=== PATIENT | female | born 1955 | race Caucasian/White ===

== ENCOUNTER 2020-04-21 10:26 | Outpatient (REF) | payer MEDICARE, MEDICAID, SELFPAY ==
[2020-04-21 11:11] LABS: MANUAL DIFF FLAG NO
[2020-04-21 11:15] LABS: Basophils Absolute Auto 0.1 X10*3/uL (0.0-0.2); Basophils Percent Auto 0.5 % (0-2); Eosinophils Absolute Auto 0.1 X10*3/uL (0.0-0.4); Eosinophils Percent Auto 0.7 % (0-4); Hemoglobin 13.2 g/dl (12.0-16.0); Imm Gran Abs Auto 0.04 X10*3/uL (0.00-0.03); Imm Gran Pct Auto 0.4 % (0.0-0.4); Lymphocytes Absolute Auto 2.9 X10*3/uL (1.2-4.9); Lymphocytes Percent Auto 31.8 % (20-40); Mean Corpuscular Hemoglobin 29.7 pg (27.0-33.0); Mean Corpuscular Volume 90.1 fL (80-98); Mean Platelet Volume 9.5 fL (9.4-12.3); Monocytes Absolute Auto 0.6 X10*3/uL (0.1-1.2); Monocytes Percent Auto 6.9 % (2-11); Neutrophils Absolute Auto 5.5 X10*3/uL (2.0-8.3); Neutrophils Percent Auto 59.7 % (45-73); Platelet Count 248 X10*3/uL (160-400); Red Blood Count 4.44 X10*6/uL (4.20-5.50); Red Cell Distribution Width 15.2 % (11.0-16.0); White Blood Count 9.2 X10*3/uL (4.8-10.8)
[2020-04-21 11:59] LABS: Alanine Aminotransferase 30 U/L (0-31); Albumin Level 4.1 g/dL (3.5-5.0); Alkaline Phosphatase 84 U/L (39-117); Anion Gap 12 (12-20); Aspartate Amino Transferase 25 U/L (5-31); Bilirubin Total 0.9 mg/dL (0.0-1.0); Blood Urea Nitrogen 18 mg/dL (9-16); C Reactive Protein 0.26 mg/dL (< or = 0.50); Carbon Dioxide 27 mmol/L (22-29); Chloride 107 mmol/L (96-108); Estimated Glomerular Filt Rate > 60; Glucose Random 98 mg/dL (60-115); Potassium 4.9 mmol/l (3.3-5.1); Sodium 141 mmol/L (135-145); Total Protein 6.5 g/dL (6.5-8.0)
[2020-04-21 12:01] LABS: Erythrocyte Sedimentation Rate 2 MM/HR (0-20)
== END 2020-04-21 10:27 | disposition home or self-care (01) ==
LOC: HO.LAB 10:26
PROVIDERS: PCP Internal Medicine; Visit Provider Student in an Organized Health Care Education/Training Program
DX: M06.9 Rheumatoid arthritis, unspecified (principal); Z79.899 Other long term (current) drug therapy
CPT/HCPCS: 36415; 80053; 85025; 85652; 86140

== ENCOUNTER 2020-05-24 08:02 | Outpatient (REF) | payer MEDICARE, MEDICAID, SELFPAY ==
[2020-05-24 08:28] LABS: MANUAL DIFF FLAG NO
[2020-05-24 08:38] LABS: Basophils Percent Auto 0.5 % (0-2); Eosinophils Absolute Auto 0.1 X10*3/uL (0.0-0.4); Eosinophils Percent Auto 0.8 % (0-4); Hematocrit 41.5 % (37-47); Hemoglobin 13.7 g/dl (12.0-16.0); Imm Gran Abs Auto 0.01 X10*3/uL (0.00-0.03); Imm Gran Pct Auto 0.1 % (0.0-0.4); Lymphocytes Absolute Auto 3.9 X10*3/uL (1.2-4.9); Mean Corpuscular Hemoglobin 29.8 pg (27.0-33.0); Mean Corpuscular Volume 90.2 fL (80-98); Mean Platelet Volume 10.2 fL (9.4-12.3); Monocytes Absolute Auto 0.7 X10*3/uL (0.1-1.2); Neutrophils Absolute Auto 2.5 X10*3/uL (2.0-8.3); Neutrophils Percent Auto 34.6 % (45-73); Platelet Count 245 X10*3/uL (160-400); Red Cell Distribution Width 14.2 % (11.0-16.0); White Blood Count 7.3 X10*3/uL (4.8-10.8)
[2020-05-24 08:50] LABS: Alanine Aminotransferase 25 U/L (0-31); Albumin Level 4.2 g/dL (3.5-5.0); Alkaline Phosphatase 84 U/L (39-117); Anion Gap 13 (12-20); Aspartate Amino Transferase 23 U/L (5-31); Bilirubin Total 0.9 mg/dL (0.0-1.0); Blood Urea Nitrogen 17 mg/dL (9-16); C Reactive Protein 0.07 mg/dL (< or = 0.50); Calcium 8.6 mg/dL (8.4-10.2); Carbon Dioxide 26 mmol/L (22-29); Chloride 108 mmol/L (96-108); Estimated Glomerular Filt Rate > 60; Glucose Random 88 mg/dL (60-115); Sodium 143 mmol/L (135-145); Total Protein 6.6 g/dL (6.5-8.0)
[2020-05-24 09:38] LABS: Erythrocyte Sedimentation Rate 2 MM/HR (0-20)
== END 2020-05-24 08:03 | disposition home or self-care (01) ==
LOC: HO.LAB 08:02
PROVIDERS: PCP Internal Medicine; Visit Provider Student in an Organized Health Care Education/Training Program
DX: M06.9 Rheumatoid arthritis, unspecified (principal); Z79.899 Other long term (current) drug therapy
CPT/HCPCS: 36415; 80053; 85025; 85652; 86140

== ENCOUNTER 2020-06-16 07:14 | Outpatient (REF) | payer MEDICARE, MEDICAID, SELFPAY ==
[2020-06-16 07:57] LABS: Basophils Absolute Auto 0.1 X10*3/uL (0.0-0.2); Basophils Percent Auto 0.8 % (0-2); Eosinophils Absolute Auto 0.1 X10*3/uL (0.0-0.4); Hematocrit 39.8 % (37-47); Hemoglobin 13.2 g/dl (12.0-16.0); Imm Gran Abs Auto 0.01 X10*3/uL (0.00-0.03); Imm Gran Pct Auto 0.2 % (0.0-0.4); Lymphocytes Absolute Auto 3.3 X10*3/uL (1.2-4.9); Lymphocytes Percent Auto 53.7 % (20-40); Mean Corpuscular HGB Conc 33.2 g/dl (31.0-35.0); Mean Corpuscular Hemoglobin 29.7 pg (27.0-33.0); Mean Corpuscular Volume 89.4 fL (80-98); Mean Platelet Volume 10.1 fL (9.4-12.3); Monocytes Absolute Auto 0.7 X10*3/uL (0.1-1.2); Monocytes Percent Auto 10.7 % (2-11); Neutrophils Absolute Auto 2.1 X10*3/uL (2.0-8.3); Neutrophils Percent Auto 33.6 % (45-73); Platelet Count 254 X10*3/uL (160-400); Red Blood Count 4.45 X10*6/uL (4.20-5.50); Red Cell Distribution Width 13.5 % (11.0-16.0); White Blood Count 6.2 X10*3/uL (4.8-10.8)
[2020-06-16 07:58] LABS: MANUAL DIFF FLAG NO
[2020-06-16 08:01] LABS: Glucose Urine UA NEG (NEG); Leukocyte Esterase Urine 1+ (NEG); Nitrite Urine NEG (NEG); PH 5.5 (5.0-8.0); Urine Blood 3+ (NEG); Urine Ketones 5 MG/DL (NEG); Urine Protein NEG (NEG-TRACE)
[2020-06-16 08:03] LABS: Appearance Urine HAZY; Color Urine YELLOW
[2020-06-16 08:04] LABS: Estimated Average Glucose 97 mg/dL
[2020-06-16 08:18] LABS: Alanine Aminotransferase 32 U/L (0-31); Albumin Level 3.9 g/dL (3.5-5.0); Alkaline Phosphatase 79 U/L (39-117); Anion Gap 13 (12-20); Aspartate Amino Transferase 28 U/L (5-31); Bilirubin Total 0.7 mg/dL (0.0-1.0); Blood Urea Nitrogen 19 mg/dL (9-16); Calcium 8.5 mg/dL (8.4-10.2); Carbon Dioxide 25 mmol/L (22-29); Chloride 108 mmol/L (96-108); Cholesterol 120 mg/dL; Estimated Glomerular Filt Rate > 60; Glucose Fasting 93 mg/dL (60-99); HDL Cholesterol 57 mg/dL; LDL Cholesterol Calculated 47 mg/dl; Sodium 142 mmol/L (135-145); Total Protein 6.4 g/dL (6.5-8.0); Triglycerides 83 mg/dL
[2020-06-16 08:26] LABS: Reflex LDLD? No
[2020-06-16 08:26] LABS: Bacteria Urine TRACE /LPF; Squamous Epithelial Cell Urine 3+ /LPF
[2020-06-16 08:38] LABS: Thyroid Stimulating Hormone 0.41 uIU/mL (0.32-4.0)
[2020-06-16 08:50] LABS: Creatinine Urine 196.11 mg/dL; Microalbum/Creatinine Ratio Ur 13.7 ug/mg cr
== END 2020-06-16 07:15 | disposition home or self-care (01) ==
LOC: HO.LAB 07:14
PROVIDERS: Visit Provider Internal Medicine
DX: I10 Essential (primary) hypertension (principal); R73.09 Other abnormal glucose; M06.9 Rheumatoid arthritis, unspecified; D72.820 Lymphocytosis (symptomatic); E04.9 Nontoxic goiter, unspecified
CPT/HCPCS: 36415; 80053; 80061; 81001; 81003; 82043; 83036; 84443; 85025

== ENCOUNTER 2020-07-09 09:36 | Outpatient (REF) | payer MEDICARE, MEDICAID, SELFPAY ==
[2020-07-09 10:46] LABS: Hematocrit 36.5 % (37-47); Hemoglobin 12.1 g/dl (12.0-16.0); Mean Corpuscular HGB Conc 33.2 g/dl (31.0-35.0); Mean Corpuscular Hemoglobin 30.3 pg (27.0-33.0); Mean Corpuscular Volume 91.3 fL (80-98); Mean Platelet Volume 10.2 fL (9.4-12.3); Platelet Count 341 X10*3/uL (160-400); Red Cell Distribution Width 13.6 % (11.0-16.0); White Blood Count 4.9 X10*3/uL (4.8-10.8)
[2020-07-09 11:15] LABS: Alanine Aminotransferase 17 U/L (0-31); Albumin Level 3.4 g/dL (3.5-5.0); Alkaline Phosphatase 80 U/L (39-117); Anion Gap 14 (12-20); Aspartate Amino Transferase 23 U/L (5-31); Bilirubin Total 0.8 mg/dL (0.0-1.0); Blood Urea Nitrogen 7 mg/dL (9-16); C Reactive Protein 9.88 mg/dL (< or = 0.50); Calcium 8.1 mg/dL (8.4-10.2); Carbon Dioxide 26 mmol/L (22-29); Chloride 109 mmol/L (96-108); Estimated Glomerular Filt Rate > 60; Glucose Random 90 mg/dL (60-115); Sodium 145 mmol/L (135-145); Total Protein 6.1 g/dL (6.5-8.0)
[2020-07-09 11:48] LABS: Erythrocyte Sedimentation Rate 38 MM/HR (0-20)
[2020-07-09 11:53] LABS: Atypical Lymph Absolute Manual 0.2 x10*3/uL; Atypical Lymphs Percent Manual 4 % (0-6); Basophils Percent Manual 1 % (0-1); Lymphocytes Absolute Manual 1.7 X10*3/uL (0.6-4.8); Lymphocytes Percent Manual 35 % (20-40); Monocytes Absolute Manual 0.2 X10*3/uL (0.0-1.2); Monocytes Percent Manual 5 % (2-11); Neutrophils Percent Manual 55 % (45-73)
[2020-07-09 11:54] LABS: Band Neutrophils Percent 0 % (3-5); Neutrophils Absolute Manual 2.7 X10*3/uL (2.2-7.9); Platelet Estimate NORMAL (NORMAL); Platelet Morphology Comment NORMAL; RBC Morphology NORMAL
== END 2020-07-09 09:37 | disposition home or self-care (01) ==
LOC: HO.LAB 09:36
PROVIDERS: PCP Internal Medicine; Visit Provider Student in an Organized Health Care Education/Training Program
DX: M06.9 Rheumatoid arthritis, unspecified (principal); Z79.899 Other long term (current) drug therapy
CPT/HCPCS: 36415; 80053; 85007; 85025; 85027; 85652; 86140

== ENCOUNTER 2020-07-29 11:24 | Outpatient (REF) | payer MEDICARE, MEDICAID, SELFPAY ==
--- NOTE | 2020-07-29 11:38 | XR_ITS ---
EXAMINATION: XR CHEST CLINICAL INFORMATION: Rheumatoid arthritis COMPARISON: Previous chest x-rays most recent October 2018 TECHNIQUE: 2 views of the chest were obtained. FINDINGS: The cardiac and mediastinal contours are stable. There are post-CABG changes. There is a small 5 mm nodule that projects over the left upper lobe and anterior second rib that is unchanged. The lungs are otherwise clear. There is no pleural effusion or pneumothorax. Bony structures are unremarkable. XR/XR chest 2V IMPRESSION: No evidence for acute disease in the chest.
[2020-07-29 12:02] LABS: MANUAL DIFF FLAG NO
[2020-07-29 12:08] LABS: Basophils Absolute Auto 0.1 X10*3/uL (0.0-0.2); Basophils Percent Auto 0.6 % (0-2); Eosinophils Absolute Auto 0.1 X10*3/uL (0.0-0.4); Hematocrit 40.3 % (37-47); Hemoglobin 13.3 g/dl (12.0-16.0); Imm Gran Abs Auto 0.06 X10*3/uL (0.00-0.03); Imm Gran Pct Auto 0.6 % (0.0-0.4); Lymphocytes Absolute Auto 1.9 X10*3/uL (1.2-4.9); Lymphocytes Percent Auto 19.4 % (20-40); Mean Corpuscular Hemoglobin 29.3 pg (27.0-33.0); Mean Corpuscular Volume 88.8 fL (80-98); Mean Platelet Volume 10.3 fL (9.4-12.3); Monocytes Percent Auto 10.2 % (2-11); Neutrophils Absolute Auto 6.6 X10*3/uL (2.0-8.3); Neutrophils Percent Auto 68.2 % (45-73); Platelet Count 230 X10*3/uL (160-400); Red Blood Count 4.54 X10*6/uL (4.20-5.50); Red Cell Distribution Width 14.6 % (11.0-16.0); White Blood Count 9.7 X10*3/uL (4.8-10.8)
[2020-07-29 12:30] LABS: Alanine Aminotransferase 15 U/L (0-31); Albumin Level 3.9 g/dL (3.5-5.0); Alkaline Phosphatase 94 U/L (39-117); Anion Gap 13 (12-20); Aspartate Amino Transferase 16 U/L (5-31); Bilirubin Total 0.8 mg/dL (0.0-1.0); Blood Urea Nitrogen 13 mg/dL (9-16); C Reactive Protein 1.16 mg/dL (< or = 0.50); Calcium 8.8 mg/dL (8.4-10.2); Carbon Dioxide 27 mmol/L (22-29); Chloride 108 mmol/L (96-108); Estimated Glomerular Filt Rate > 60; Glucose Random 102 mg/dL (60-115); Potassium 4.4 mmol/L (3.3-5.1); Sodium 144 mmol/L (135-145); Total Protein 6.6 g/dL (6.5-8.0)
[2020-07-29 13:22] LABS: Erythrocyte Sedimentation Rate 8 MM/HR (0-20)
== END 2020-07-29 11:25 | disposition home or self-care (01) ==
LOC: HO.LAB 11:24
PROVIDERS: PCP Internal Medicine; Visit Provider Student in an Organized Health Care Education/Training Program
DX: M06.9 Rheumatoid arthritis, unspecified (principal); Z79.899 Other long term (current) drug therapy
CPT/HCPCS: 36415; 71046; 80053; 85025; 85652; 86140

== ENCOUNTER → 2020-10-03 09:16 | Outpatient (REF) | payer MEDICARE, MEDICAID, SELFPAY ==
--- NOTE | 2020-10-03 09:30 | CA_ITS ---
Transthoracic Echocardiogram Patient (Last, First, Middle): Selene Barry, Gender: Female Date of : 1955 Age: 65 Procedure Date: 10/03/2020 Procedure Type: Transthoracic Echocardiogram Location: OP Height: 162.56 cm Weight: 86.64 kg BSA: 1.92 m2 Heart Rate: bpm BP: 118 / 60 mmHg Whipped Topping Mixer: Referring MD: Hernan Arriaga MD Symptoms: I34.0 NON RHEUMATIC MITRAL REGURG Study Quality: Good ECG Rhythm: Sinus Conclusions: - The left ventricular systolic function is normal. The visually estimated ejection fraction is between 55-60%. - The basal inferior and basal inferoseptal segments are akinetic. - The posterior mitral leaflet has restricted mobility. There is mild to moderate mitral valve regurgitation. Findings Left Ventricle Normal left ventricular cavity size. There is mildly increased left ventricular wall thickness. The left ventricular systolic function is normal. The visually estimated ejection fraction is between 55-60%. There is evidence of regional wall motion abnormalities. Diastolic function is normal for age. Wall Motion Rest Echo Findings The basal inferior and basal inferoseptal segments are akinetic. Right Ventricle Normal right ventricular cavity size and systolic function. Atria The left atrium is mildly dilated. The right atrium is normal in size. Aortic Valve There is a normal trileaflet aortic valve. There is no aortic valve stenosis. There is trace (trivial) aortic valve regurgitation. Mitral Valve The posterior mitral leaflet has restricted mobility. There is mild to moderate mitral valve regurgitation. There is no mitral valve stenosis. Pulmonic Valve The pulmonic valve was not well visualized. There is trace pulmonic valve regurgitation. Tricuspid Valve Normal tricuspid valve structure. There is trace tricuspid valve regurgitation. The pulmonary artery systolic pressure is normal. Great Vessels The aortic annulus, sinuses of valsalva, and asc aorta are normal in size. Venous The inferior vena cava is normal in size and collapses greater than 50% with inspiration. Pericardium/Pleural There is no evidence of pericardial effusion. Prior Study Comparison No significant change compared to prior study dated: 07/30/2019. Measurements 2D Linear Measurements IVSd: 1.17 0.6-0.9/0.6-1.0 cm LVIDd: 4.81 3.9-5.3/4.2-5.9 cm LVIDd Index: 2.51 2.4-3.2/2.2-3.1 cm/m2 LVIDs: 2.99 2.0-3.6 cm LVPWd: 1.15 0.7-1.1 cm Ao Root: 3.60 2.1-3.5 cm LA Diam: 4.30 2.7-3.8/3.0-4.0 cm LAIDs Index: 2.24 1.5-2.3 cm/m2 LV Mass: 261.23 67-162/88-224 g LV Mass Index: 136.06 43-95/49-115 g/m2 LVOT Diam: 2.00 3.0+(-)1.3 cm 2D Systolic Function EF 4C: 62.10 >55% EF 2C: 52.50 >55% EF BiP: 56.90 >55% Mitral Valve MV Pk E: 0.89 MV PK A: 1.02 MV Decel Time: 219.00 E/A: 0.90 E'Lateral: 10.90 E'Medial: 7.29 E/E' Med: 12.20 E/E' Lat: 8.10 PHT: 64.00 MVA PHT: 3.44 Decel [place]: 4.06 MR Vol - PW Dopp: 33.60 MR VTI: 2.40 MR ERO: 14.00 MR Alias Gabriel: 0.36 MR RAD: 0.60 Aortic Valve AoV Pk Gabriel: 1.32 AoV Mn Gabriel: 0.82 AoV VTI: 0.36 AoV Pk Grad: 7.00 Aov Mn Grad: 3.00 ROSEY Cont.VTI: 2.05 LVOT LVOT Pk Gabriel: 0.80 LVOT Mn Gabriel: 0.51 LVOT VTI: 0.23 LVOT Pk Grad: 3.00 LVOT Mn Grad: 1.00 LVOT Diam: 2.00 LVOT Area: 3.14 Diastolic Function MV Pk E: 0.89 MV Pk A: 1.02 E/A: 0.90 E'Medial: 7.29 E/E' Med: 12.20 E' Laterial: 10.90 E/E' Lat: 8.10 Tricuspid Valve TR Pk Gabriel: 16.00 RA Press: 3.00 RVSP: 19.00 Great Vessels Aorta Ao Root-2D: 3.60 2.0-3.7 cm Ao Asc: 3.40 2.1-3.4 cm Pulmonary Valve PV Pk Gabriel: 0.77 Peak PV Grad: 2.00 Updated in Other Vendor System with Status of Final Hernan Arriaga MD electronically signed on 10/04/2020 12:31:04 PM with status of Final
[2020-10-03 10:32] LABS: Basophils Percent Auto 0.8 % (0-2); Eosinophils Absolute Auto 0.1 X10*3/uL (0.0-0.4); Hematocrit 43.3 % (37-47); Imm Gran Abs Auto 0.01 X10*3/uL (0.00-0.03); Imm Gran Pct Auto 0.2 % (0.0-0.4); Lymphocytes Absolute Auto 2.5 X10*3/uL (1.2-4.9); Lymphocytes Percent Auto 52.3 % (20-40); MANUAL DIFF FLAG NO; Mean Corpuscular HGB Conc 32.3 g/dl (31.0-35.0); Mean Corpuscular Hemoglobin 28.6 pg (27.0-33.0); Mean Corpuscular Volume 88.4 fL (80-98); Mean Platelet Volume 10.3 fL (9.4-12.3); Monocytes Absolute Auto 0.5 X10*3/uL (0.1-1.2); Monocytes Percent Auto 9.7 % (2-11); Neutrophils Absolute Auto 1.8 X10*3/uL (2.0-8.3); Platelet Count 249 X10*3/uL (160-400); Red Cell Distribution Width 13.8 % (11.0-16.0); White Blood Count 4.9 X10*3/uL (4.8-10.8)
[2020-10-03 10:56] LABS: Alanine Aminotransferase 19 U/L (0-31); Albumin Level 4.2 g/dL (3.5-5.0); Alkaline Phosphatase 88 U/L (39-117); Anion Gap 11 (12-20); Aspartate Amino Transferase 20 U/L (5-31); Bilirubin Total 0.9 mg/dL (0.0-1.0); Blood Urea Nitrogen 15 mg/dL (9-16); C Reactive Protein 0.05 mg/dL (< or = 0.50); Calcium 8.8 mg/dL (8.4-10.2); Carbon Dioxide 28 mmol/L (22-29); Chloride 107 mmol/L (96-108); Estimated Glomerular Filt Rate > 60; Glucose Random 89 mg/dL (60-115); Potassium 4.2 mmol/L (3.3-5.1); Sodium 142 mmol/L (135-145); Total Protein 6.8 g/dL (6.5-8.0)
[2020-10-03 11:40] LABS: Erythrocyte Sedimentation Rate 2 MM/HR (0-20)
== END ==
LOC: HO.CARD 09:16
PROVIDERS: Absent Provider Student in an Organized Health Care Education/Training Program; PCP Internal Medicine; Visit Provider Internal Medicine
DX: M06.9 Rheumatoid arthritis, unspecified (principal); Z79.899 Other long term (current) drug therapy; I34.0 Nonrheumatic mitral (valve) insufficiency
CPT/HCPCS: 36415; 80053; 85025; 85652; 86140; 93306

== ENCOUNTER → 2020-10-07 10:27 | Outpatient (BNVA) | payer MEDICARE, MEDICAID, SELFPAY | PROVIDERS: Visit Provider Student in an Organized Health Care Education/Training Program | DX: M05.9 Rheumatoid arthritis with rheumatoid factor, unspecified (principal); M70.62 Trochanteric bursitis, left hip; Z79.899 Other long term (current) drug therapy; I48.20 Chronic atrial fibrillation, unspecified; Z86.718 Personal history of other venous thrombosis and embolism; Z79.01 Long term (current) use of anticoagulants; Z51.81 Encounter for therapeutic drug level monitoring | CPT/HCPCS: 20610; 99212 ==

== ENCOUNTER → 2020-10-20 08:08 | Outpatient (BNVA) | payer MEDICARE, MEDICAID, SELFPAY | PROVIDERS: PCP Internal Medicine; Visit Provider Internal Medicine | DX: I25.10 Atherosclerotic heart disease of native coronary artery without angina pectoris (principal); I34.0 Nonrheumatic mitral (valve) insufficiency; I10 Essential (primary) hypertension; Z95.1 Presence of aortocoronary bypass graft | CPT/HCPCS: 99212 ==

== ENCOUNTER 2020-11-17 09:10 | Outpatient (REF) | payer MEDICARE, MEDICAID, SELFPAY ==
[2020-11-17 10:02] LABS: MANUAL DIFF FLAG NO
[2020-11-17 10:18] LABS: Basophils Absolute Auto 0.1 X10*3/uL (0.0-0.2); Eosinophils Absolute Auto 0.1 X10*3/uL (0.0-0.4); Eosinophils Percent Auto 1.4 % (0-4); Hematocrit 45.4 % (37-47); Hemoglobin 14.7 g/dl (12.0-16.0); Imm Gran Abs Auto 0.02 X10*3/uL (0.00-0.03); Imm Gran Pct Auto 0.3 % (0.0-0.4); Lymphocytes Absolute Auto 2.4 X10*3/uL (1.2-4.9); Lymphocytes Percent Auto 41.8 % (20-40); Mean Corpuscular HGB Conc 32.4 g/dl (31.0-35.0); Mean Corpuscular Hemoglobin 28.5 pg (27.0-33.0); Mean Platelet Volume 10.1 fL (9.4-12.3); Monocytes Absolute Auto 0.6 X10*3/uL (0.1-1.2); Monocytes Percent Auto 9.7 % (2-11); Neutrophils Absolute Auto 2.7 X10*3/uL (2.0-8.3); Neutrophils Percent Auto 45.8 % (45-73); Platelet Count 260 X10*3/uL (160-400); Red Blood Count 5.16 X10*6/uL (4.20-5.50); Red Cell Distribution Width 13.8 % (11.0-16.0); White Blood Count 5.8 X10*3/uL (4.8-10.8)
[2020-11-17 10:40] LABS: Alanine Aminotransferase 20 U/L (0-31); Albumin Level 4.1 g/dL (3.5-5.0); Alkaline Phosphatase 88 U/L (39-117); Anion Gap 12 (12-20); Aspartate Amino Transferase 18 U/L (5-31); Bilirubin Total 0.9 mg/dL (0.0-1.0); Blood Urea Nitrogen 15 mg/dL (9-16); C Reactive Protein 0.17 mg/dL (< or = 0.50); Calcium 9.2 mg/dL (8.4-10.2); Carbon Dioxide 27 mmol/L (22-29); Chloride 105 mmol/L (96-108); Estimated Glomerular Filt Rate > 60; Glucose Random 94 mg/dL (60-115); Potassium 4.1 mmol/L (3.3-5.1); Sodium 140 mmol/L (135-145); Total Protein 6.7 g/dL (6.5-8.0)
== END 2020-11-17 09:11 | disposition home or self-care (01) ==
LOC: HO.LAB 09:10
PROVIDERS: PCP Internal Medicine; Visit Provider Student in an Organized Health Care Education/Training Program
DX: M05.9 Rheumatoid arthritis with rheumatoid factor, unspecified (principal)
CPT/HCPCS: 36415; 80053; 85025; 86140

== ENCOUNTER → 2020-11-19 08:34 | Outpatient (BNVA) | payer MEDICARE, MEDICAID, SELFPAY | PROVIDERS: PCP Internal Medicine; Visit Provider Student in an Organized Health Care Education/Training Program | DX: M05.9 Rheumatoid arthritis with rheumatoid factor, unspecified (principal) | CPT/HCPCS: 99212 ==

== ENCOUNTER 2020-11-28 11:49 | Outpatient (REF) | payer MEDICARE, MEDICAID, SELFPAY ==
--- NOTE | ~2020-11-28 | MM_ITS ---
EXAMINATION: MM SCREENING DIGITAL BREAST TOMOSYNTHESIS, BILATERAL CLINICAL INFORMATION: Screening. Asymptomatic. The lifetime risk of breast cancer based on the Tyrer-Cuzick Model is 7%. COMPARISON: Mammography: 08/08/2019, 08/02/2018, 05/21/2017 TECHNIQUE: Digital breast tomosynthesis is performed in both the craniocaudal and mediolateral oblique views along with computer-aided detection (CAD). Synthesized 2D images are generated from the tomosynthesis. FINDINGS: There are scattered areas of fibroglandular density (ACR BI-RADS breast composition Category b). Breast tissue composition borders on predominantly fatty. Fibroglandular tissue in the anterior breasts is stable. There is no significant mass, architectural abnormality, or abnormal calcifications. No significant changes from prior exams. MM/MM tomosynthesis screening BI IMPRESSION: No mammographic evidence of malignancy. ASSESSMENT: BI-RADS 1: Negative RECOMMENDATION: Routine annual mammography screening. This patient's information was entered into a reminder system with a target due date for their next mammogram.
== END 2020-11-28 11:50 | disposition home or self-care (01) ==
LOC: HO.MAMMO 11:49
PROVIDERS: PCP Internal Medicine; Visit Provider Internal Medicine
DX: Z12.31 Encounter for screening mammogram for malignant neoplasm of breast (principal)
CPT/HCPCS: 77063; 77067

== ENCOUNTER 2021-02-03 10:46 | Outpatient (REF) | payer MEDICARE, MEDICAID, SELFPAY ==
[2021-02-03 11:26] LABS: Estimated Average Glucose 100 mg/dL; Hemoglobin A1c % 5.1 %
[2021-02-03 11:48] LABS: Alanine Aminotransferase 23 U/L (0-31); Albumin Level 4.1 g/dL (3.5-5.0); Alkaline Phosphatase 98 U/L (39-117); Aspartate Amino Transferase 24 U/L (5-31); Bilirubin Direct 0.2 mg/dL (0.0-0.5); Bilirubin Total 0.4 mg/dL (0.0-1.0); Cholesterol 129 mg/dL; Glucose Fasting 97 mg/dL (60-99); HDL Cholesterol 39 mg/dL; LDL Cholesterol Calculated 64 mg/dl; Triglycerides 132 mg/dL
[2021-02-03 12:41] LABS: Reflex LDLD? No
== END 2021-02-03 10:47 | disposition home or self-care (01) ==
LOC: HO.LNP 10:46
PROVIDERS: Visit Provider Internal Medicine
DX: R73.09 Other abnormal glucose (principal); I25.118 Atherosclerotic heart disease of native coronary artery with other forms of angina pectoris
CPT/HCPCS: 80061; 80076; 82947; 83036

== ENCOUNTER 2021-02-04 12:10 | Emergency (ER) | payer MEDICARE, MEDICAID, SELFPAY ==
--- NOTE | ~2021-02-04 | US_ITS ---
EXAMINATION: US VENOUS ULTRASOUND WITH DOPPLER LOWER EXTREMITY, RIGHT CLINICAL INFORMATION: Right lower extremity swelling/pain COMPARISON: None TECHNIQUE: Ultrasound of the deep veins is performed from the hip to the calf with compression sonography and color and pulse Doppler assessment. Spectral analysis with color-flow imaging is performed. FINDINGS: There is normal venous compression and respiratory variation and augmented flow. The visualized common femoral vein, superficial femoral vein, profunda femoral vein, popliteal vein, and the trifurcation region shows no evidence of deep venous thrombosis. There is a 6.4 x 6.2 x 6.6 cm suprapatellar joint effusion. US/US venous duplex LE RT IMPRESSION: No DVT demonstrated in the right lower extremity. Suprapatellar joint effusion of the right knee.
[2021-02-04 12:31] VITALS: BP 141/87; PULSE 50; RESP 18; TEMP 36.1; O2SAT 99; BMI 33.6
[2021-02-04 16:01] LABS: MANUAL DIFF FLAG NO
[2021-02-04 16:05] LABS: Basophils Percent Auto 0.9 % (0-2); Eosinophils Percent Auto 0.9 % (0-4); Hematocrit 44.9 % (37-47); Hemoglobin 15.2 g/dl (12.0-16.0); Lymphocytes Absolute Auto 1.7 X10*3/uL (1.2-4.9); Lymphocytes Percent Auto 48.3 % (20-40); Mean Corpuscular HGB Conc 33.9 g/dl (31.0-35.0); Mean Corpuscular Hemoglobin 29.2 pg (27.0-33.0); Mean Corpuscular Volume 86.2 fL (80-98); Mean Platelet Volume 9.2 fL (9.4-12.3); Monocytes Absolute Auto 0.4 X10*3/uL (0.1-1.2); Monocytes Percent Auto 11.8 % (2-11); Neutrophils Absolute Auto 1.3 X10*3/uL (2.0-8.3); Neutrophils Percent Auto 38.1 % (45-73); Platelet Count 289 X10*3/uL (160-400); Red Blood Count 5.21 X10*6/uL (4.20-5.50); Red Cell Distribution Width 13.1 % (11.0-16.0); White Blood Count 3.5 X10*3/uL (4.8-10.8)
[2021-02-04 16:26] LABS: Anion Gap 14 (12-20); Blood Urea Nitrogen 12 mg/dL (9-16); Calcium 9.2 mg/dL (8.4-10.2); Carbon Dioxide 26 mmol/L (22-29); Chloride 103 mmol/L (96-108); Creatinine Clr Calc Pharmacy 84.3; Estimated Glomerular Filt Rate > 60; Glucose Random 105 mg/dL (60-115); Potassium 4.8 mmol/L (3.3-5.1); Sodium 138 mmol/L (135-145)
[2021-02-04 16:30] LABS: B Type Natriuretic Peptide 174 pg/mL (<100)
--- NOTE | 2021-02-04 16:49 | ED_ITS ---
HPI - Extremity Problem General Chief complaint: Extremity Problem Stated complaint: leg pain Time Seen by Provider: 02/04/21 16:36 Source: patient Mode of arrival: ambulatory History of Present Illness HPI Narrative: 65-year-old female with a past medical history of ACS, CAD, HTN, mitral regurg, RA on 2.5 mg of prednisone daily and Kevzara, presenting to the ED complaining of right lower extremity swelling and pain worsening x1 week. R eports most of pain is in right knee. Reports symptoms are similar to prior RA flares, unchanged. Does report recently traveled from [place]. Denies history of clots, cigarette smoking, or illicit pees, CP/SOB, fever, chills, numbness/tingling MD Complaint: extremity pain and extremity swelling Related Data Home Medications Medication Instructions Recorded Confirmed aspirin 81 mg tablet,delayed 81 mg PO DAILY 05/30/20 10/20/20 release (Adult Low Dose Aspirin) atorvastatin 80 mg tablet 80 mg PO DAILY 05/30/20 10/20/20 calcium carbonate 500 mg (1,250 1 tab PO DAILY 05/30/20 10/20/20 mg)-vitamin D3 200 unit tablet (Calcium 500 + D) fluticasone furoate 200 1 inh INHALATION DAILY 05/30/20 10/20/20 mcg-vilanterol 25 mcg/dose inhalation powder (Breo Ellipta) metoprolol tartrate 50 mg tablet 50 mg PO BID tab 05/30/20 05/30/20 levothyroxine 112 mcg tablet 112 mcg PO DAILY 10/20/20 10/20/20 omeprazole 20 mg capsule,delayed 20 mg PO DAILY 10/20/20 10/20/20 release Previous Rx's Medication Instructions Recorded acetaminophen 650 mg 650 mg PO Q8H PRN #90 tab 05/15/20 tablet,extended release (Arthritis Pain Relief (acetaminophen) ER) diclofenac sodium 1 % topical gel 2 g TOPICAL BID #100 g 09/03/20 sarilumab 200 mg/1.14 mL 200 mg SUBCUT Q2W #2.28 ml 11/19/20 subcutaneous pen injector (Kevzara) prednisone 2.5 mg tablet 2.5 mg PO DAILY #30 tab 12/24/20 prednisone 10 mg tablet 10 mg PO DAILY #20 tab 02/04/21 Allergies Allergy/AdvReac Type Severity Reaction Status Date / Time No Known Allergies Allergy Verified 11/19/20 08:38 [No Known Allergies*] Review of Systems Review of Systems: Constitutional: No Fever, No Chills, No Fatigue, No Malaise Cardiovascular: No Chest Pain, No SOB, +RLE edema Respiratory: No Cough, No Dyspnea Musculoskeletal: + joint pain, No Myalgias, +No Joint Swelling Skin: No Skin Lesions, No rash Neuro: No Weakness, No Numbness, No Paresthesias Yes all other systems are reviewed and are negative [facility] Past Medical History Attestation statement: The following information was validated with the patient. Medical History Atherosclerotic cardiovascular disease Coronary arteriosclerosis Essential hypertension Non-rheumatic mitral regurgitation Seropositive rheumatoid arthritis Surgical History History of thyroid surgery Status post coronary artery bypass graft Family History Family History Mother HTN (hypertension) Social History Social History (Updated 11/19/20 @ 08:41 by Jojo Clark CMA) Alcohol intake: current Patient Tobacco Use Status: Former Tobacco user Tobacco use type: Cigarette Cigarettes Per Day: 3 Years Smoked: 10 Advance Directives: Yes Advance Directives Information Provided: Yes Advance Directives on File: No Physical Exam Vital Signs: Vital Signs: Last Vital Signs Temp 98.8 F 02/04/21 17:46 Pulse 48 L 02/04/21 17:46 Resp 18 02/04/21 17:46 BP 178/65 H 02/04/21 17:46 Pulse Ox 95 02/04/21 17:46 Body Mass Index 33.6 Const: General: cooperative, healthy appearing, no acute distress and well developed Orientation/consciousness: patient oriented x3 Limitations: no limitations HENMT: Head: Yes normal to inspection Ears: hearing grossly normal bilaterally General nose exam: Normal external nose present Face and sinus: Yes normal facial exam Eyes: General: appearance normal, both eyes and all related structures EOM: EOMs intact bilaterally Neck: Neck: Yes normal visual inspection and Yes no meningeal signs Resp: Effort & Inspection: normal respiratory effort and no respiratory distress Cardio: Rate: regular rate Peripheral pulses: dorsalis pedis present : General: Yes no CVA tenderness Back/Spine/Pelvis: Back: no CVA tenderness Skin: Rashes: no rashes Wounds: no wounds Neuro: General: patient oriented x3 and no meningeal signs Gait exam (Neuro): Normal gait present Extrem: Other: +RLE edema/swelling and R knee ttp and pain with R knee ROM. No erythema/warmth. NV intact distally. No calf ttp Course Course Course Narrative: -leukopenia with WBC count 3.5, BNP 174, labs otherwise unremarkable, CRP WNL US venous duplex LE RT IMPRESSION: No DVT demonstrated in the right lower extremity. Suprapatellar joint effusion of the right knee. >> results discussed with patient including worrisome signs and symptoms and strict return precautions. Reports has follow-up with her PCP next week as well as egg tester on the 18th [facility] - Extremity (Nontraumatic) MDM Narrative Medical decision making narrative: 65-year-old female with a past medical history of ACS, CAD, HTN, mitral regurg, RA on 2.5 mg of prednisone daily and Kevzara, presenting to the ED complaining of right lower extremity swelling and pain worsening x1 week. On exam VSS, NAD/well-appearing, RLE with notable swelling/edema and right knee swelling with tenderness to palpation and decreased knee ROM secondary to pain. Concern for RA flare vs DVT. Low concern for PE. Physical exam not consistent with cellulitis. Plan: Venous duplex ultrasound Lab Data Result diagrams: 02/04/21 15:54 02/04/21 15:54 Labs: Lab Results 02/04/21 02/04/21 02/04/21 Range/Units 15:54 15:54 15:54 WBC 3.5 L (4.8-10.8) X10*3/uL RBC 5.21 (4.20-5.50) X10*6/uL Hgb 15.2 (12.0-16.0) g/dl Hct 44.9 (37-47) % MCV 86.2 (80-98) fL MCH 29.2 (27.0-33.0) pg MCHC 33.9 (31.0-35.0) g/dl RDW 13.1 (11.0-16.0) % Plt Count 289 (160-400) X10*3/uL MPV 9.2 L (9.4-12.3) fL Immature Gran % (Auto) 0.0 (0.0-0.4) % Neut % (Auto) 38.1 L (45-73) % Lymph % (Auto) 48.3 H (20-40) % Collier % (Auto) 11.8 H (2-11) % Eos % (Auto) 0.9 (0-4) % Baso % (Auto) 0.9 (0-2) % Lymph # (Auto) 1.7 (1.2-4.9) X10*3/uL Collier # (Auto) 0.4 (0.1-1.2) X10*3/uL Eos # (Auto) 0.0 (0.0-0.4) X10*3/uL Baso # (Auto) 0.0 (0.0-0.2) X10*3/uL Abs Immat Gran (auto) 0.00 (0.00-0.03) X10*3/uL Absolute Neuts (auto) 1.3 L (2.0-8.3) X10*3/uL Absolute Nucleated RBC 0.000 (0.0-0.012) X10*3/uL Nucleated RBC % (auto) 0.0 (0.0-0.2) /100WBC Sodium 138 (135-145) mmol/L Potassium 4.8 (3.3-5.1) mmol/L Chloride 103 (96-108) mmol/L Carbon Dioxide 26 (22-29) mmol/L Anion Gap 14 (12-20) BUN 12 (9-16) mg/dL Creatinine 0.71 (0.5-1.4) mg/dL Estim Creat Clear Calc 84.3 Estimated GFR > 60 Random Glucose 105 (60-115) mg/dL Calcium 9.2 (8.4-10.2) mg/dL C-Reactive Protein 0.47 (< or = 0.50) mg/dL B-Natriuretic Peptide 174 H (<100) pg/mL Discharge Plan Discharge Clinical Impression: Rheumatoid arthritis flare Patient Disposition: Home, Self-Care Instructions: Rheumatoid Arthritis (ED) Additional Instructions: Your blood work was reassuring Your ultrasound did not show any blood clot however did shows some fluid in her knee joint Continue taking home prescribed medications, start taking prednisone taper breath prescribed It is important he follow up with her primary care doctor and her egg tester If her symptoms persist or worsen, your leg begins to look infected, is red, is warm, if shortness of breath or pain is persistent or worsening please return to the ED Prescriptions: New prednisone 10 mg tablet 10 mg PO DAILY Qty: 20 RF: 0 No Action acetaminophen [Arthritis Pain Relief (acetam)] 650 mg tablet extended release 650 mg PO Q8H PRN (Reason: pain) Qty: 90 RF: 5 diclofenac sodium 1 % gel 2 g topical BID Qty: 100 RF: 3 prednisone 2.5 mg tablet 2.5 mg PO DAILY Qty: 30 RF: 3 calcium carbonate-vitamin D3 [Calcium 500 + D] 500 mg(1,250mg) -200 unit tablet 1 tab PO DAILY RF: 0 atorvastatin 80 mg tablet 80 mg PO DAILY RF: 0 aspirin [Adult Low Dose Aspirin] 81 mg tablet,delayed release (DR/EC) 81 mg PO DAILY RF: 0 Breo Ellipta 200-25 mcg/dose blister with device 1 inh inhalation DAILY RF: 0 metoprolol tartrate 50 mg tablet 50 mg PO BID RF: 0 levothyroxine 112 mcg tablet 112 mcg PO DAILY RF: 0 omeprazole 20 mg capsule,delayed release(DR/EC) 20 mg PO DAILY RF: 0 Kevzara 200 mg/1.14 mL pen injector 200 mg subcut Q2W Qty: 2.28 RF: 3 Referrals: Bola Pathak MD [Physician] - 5 days
[2021-02-04 17:39] LABS: C Reactive Protein 0.47 mg/dL (< or = 0.50)
[2021-02-04 17:46] VITALS: BP 178/65; PULSE 48; RESP 18; TEMP 37.1; O2SAT 95
[2021-02-04 18:21] LABS: Erythrocyte Sedimentation Rate 3 MM/HR (0-20)
== END 2021-02-04 18:30 | disposition home or self-care (01) ==
PROVIDERS: Physician Assistant; Emergency Provider Emergency Medicine Emergency Medical Services; PCP Internal Medicine
DX: M05.9 Rheumatoid arthritis with rheumatoid factor, unspecified (principal); M79.604 Pain in right leg; I10 Essential (primary) hypertension; Z79.52 Long term (current) use of systemic steroids; Z79.899 Other long term (current) drug therapy
CPT/HCPCS: 36415; 80048; 83880; 85025; 85652; 86140; 93971; 99284

== ENCOUNTER 2021-02-06 10:04 | Outpatient (REF) | payer MEDICARE, MEDICAID, SELFPAY ==
[2021-02-06 10:53] LABS: MANUAL DIFF FLAG NO
[2021-02-06 10:56] LABS: Basophils Percent Auto 0.2 % (0-2); Hematocrit 44.2 % (37-47); Hemoglobin 14.7 g/dl (12.0-16.0); Imm Gran Abs Auto 0.02 X10*3/uL (0.00-0.03); Imm Gran Pct Auto 0.4 % (0.0-0.4); Lymphocytes Absolute Auto 1.6 X10*3/uL (1.2-4.9); Lymphocytes Percent Auto 31.3 % (20-40); Mean Corpuscular HGB Conc 33.3 g/dl (31.0-35.0); Mean Corpuscular Hemoglobin 28.7 pg (27.0-33.0); Mean Corpuscular Volume 86.3 fL (80-98); Mean Platelet Volume 9.9 fL (9.4-12.3); Monocytes Absolute Auto 0.4 X10*3/uL (0.1-1.2); Monocytes Percent Auto 7.7 % (2-11); Neutrophils Absolute Auto 3.1 X10*3/uL (2.0-8.3); Neutrophils Percent Auto 60.4 % (45-73); Platelet Count 308 X10*3/uL (160-400); Red Blood Count 5.12 X10*6/uL (4.20-5.50); Red Cell Distribution Width 13.1 % (11.0-16.0); White Blood Count 5.2 X10*3/uL (4.8-10.8)
[2021-02-06 11:26] LABS: Alanine Aminotransferase 22 U/L (0-31); Albumin Level 4.3 g/dL (3.5-5.0); Alkaline Phosphatase 100 U/L (39-117); Anion Gap 17 (12-20); Aspartate Amino Transferase 18 U/L (5-31); Bilirubin Total 0.5 mg/dL (0.0-1.0); Blood Urea Nitrogen 15 mg/dL (9-16); C Reactive Protein 0.29 mg/dL (< or = 0.50); Calcium 9.6 mg/dL (8.4-10.2); Carbon Dioxide 24 mmol/L (22-29); Chloride 104 mmol/L (96-108); Estimated Glomerular Filt Rate > 60; Glucose Random 164 mg/dL (60-115); Potassium 4.9 mmol/L (3.3-5.1); Sodium 140 mmol/L (135-145); Total Protein 7.2 g/dL (6.5-8.0)
[2021-02-06 11:37] LABS: Erythrocyte Sedimentation Rate 2 MM/HR (0-20)
== END 2021-02-06 10:05 | disposition home or self-care (01) ==
LOC: HO.LAB 10:04
PROVIDERS: PCP Internal Medicine; Visit Provider Student in an Organized Health Care Education/Training Program
DX: M05.9 Rheumatoid arthritis with rheumatoid factor, unspecified (principal)
CPT/HCPCS: 36415; 80053; 85025; 85652; 86140

== ENCOUNTER → 2021-02-11 08:45 | Outpatient (BNVA) | payer MEDICARE, MEDICAID, SELFPAY | PROVIDERS: PCP Internal Medicine; Visit Provider Nurse Practitioner Family | DX: M05.9 Rheumatoid arthritis with rheumatoid factor, unspecified (principal) | CPT/HCPCS: 20610; 99212 ==

== ENCOUNTER 2021-02-11 10:43 | Outpatient (REF) | payer MEDICARE, MEDICAID, SELFPAY | END 2021-02-11 10:44 | disposition home or self-care (01) | LOC: HO.LNP 10:43 | PROVIDERS: Visit Provider Student in an Organized Health Care Education/Training Program | DX: M05.9 Rheumatoid arthritis with rheumatoid factor, unspecified (principal); M25.561 Pain in right knee; Z79.52 Long term (current) use of systemic steroids; Z79.899 Other long term (current) drug therapy | CPT/HCPCS: 20610; 87071; 87073; 87205; 89060; 99212 ==

== ENCOUNTER 2021-02-24 07:55 | Outpatient (REF) | payer MEDICARE, MEDICAID, SELFPAY ==
--- NOTE | ~2021-02-24 | XR_ITS ---
EXAMINATION: XR BOTH KNEES AP STANDING XR RIGHT KNEE, 2 VIEWS CLINICAL INFORMATION: Right knee pain. COMPARISON: Radiographs dated 11/14/2018. Left knee radiographs dated 01/08/2016. TECHNIQUE: Standing AP view of both knees and lateral and sunrise views of the right knee. FINDINGS: Right Knee: Prominent tricompartmental joint space narrowing. Lateral compartment subchondral sclerosis and subchondral cystic change. Tricompartmental marginal osteophytes. No acute fracture or dislocation. Lateral subluxation of the patella, unchanged. [id number] joint effusion. Left Knee: Tiny medial compartment marginal osteophytes. No osseous erosion. No fracture or dislocation. XR/XR knee standing BI IMPRESSION: RIGHT KNEE: Prominent tricompartmental osteoarthritis, most severe within the lateral compartment. Findings are slightly progressed when compared to the prior radiographs. LEFT KNEE: Mild medial compartment osteoarthritis, unchanged.
--- NOTE | ~2021-02-24 | XR_ITS ---
EXAMINATION: XR BOTH KNEES AP STANDING XR RIGHT KNEE, 2 VIEWS CLINICAL INFORMATION: Right knee pain. COMPARISON: Radiographs dated 11/14/2018. Left knee radiographs dated 01/08/2016. TECHNIQUE: Standing AP view of both knees and lateral and sunrise views of the right knee. FINDINGS: Right Knee: Prominent tricompartmental joint space narrowing. Lateral compartment subchondral sclerosis and subchondral cystic change. Tricompartmental marginal osteophytes. No acute fracture or dislocation. Lateral subluxation of the patella, unchanged. Dahrm-et-nihanoid joint effusion. Left Knee: Tiny medial compartment marginal osteophytes. No osseous erosion. No fracture or dislocation. XR/XR knee RT 2V IMPRESSION: RIGHT KNEE: Prominent tricompartmental osteoarthritis, most severe within the lateral compartment. Findings are slightly progressed when compared to the prior radiographs. LEFT KNEE: Mild medial compartment osteoarthritis, unchanged.
== END 2021-02-24 07:56 | disposition home or self-care (01) ==
LOC: HO.HOSX 07:55
PROVIDERS: Visit Provider Physician Assistant
DX: M06.9 Rheumatoid arthritis, unspecified (principal); M25.461 Effusion, right knee; M25.561 Pain in right knee
CPT/HCPCS: 20610; 73560; 73565; 99202; J1040

== ENCOUNTER → 2021-05-07 12:12 | Outpatient (BNVA) | payer MEDICARE, MEDICAID, SELFPAY | PROVIDERS: Referring Provider Internal Medicine; Visit Provider Internal Medicine | DX: I25.10 Atherosclerotic heart disease of native coronary artery without angina pectoris (principal); I34.0 Nonrheumatic mitral (valve) insufficiency; I10 Essential (primary) hypertension; R60.0 Localized edema; Z95.1 Presence of aortocoronary bypass graft | CPT/HCPCS: 93005; 99212 ==

== ENCOUNTER 2021-05-14 09:22 | Outpatient (REF) | payer MEDICARE, MEDICAID, SELFPAY ==
[2021-05-14 10:12] LABS: Basophils Absolute Auto 0.1 X10*3/uL (0.0-0.2); Basophils Percent Auto 1.1 % (0-2); Eosinophils Absolute Auto 0.1 X10*3/uL (0.0-0.4); Eosinophils Percent Auto 1.8 % (0-4); Hematocrit 45.5 % (37.0-47.0); Hemoglobin 15.3 g/dl (12.0-16.0); Imm Gran Abs Auto 0.01 X10*3/uL (0.00-0.03); Imm Gran Pct Auto 0.2 % (0.0-0.4); MANUAL DIFF FLAG SCAN; Mean Corpuscular HGB Conc 33.6 g/dl (31.0-35.0); Mean Corpuscular Hemoglobin 29.7 pg (27.0-33.0); Mean Corpuscular Volume 88.2 fL (80.0-98.0); Mean Platelet Volume 10.3 fL (9.4-12.3); Monocytes Absolute Auto 0.5 X10*3/uL (0.1-1.2); Monocytes Percent Auto 12.1 % (2-11); Neutrophils Absolute Auto 0.8 x10*3/uL (2.0-8.3); Neutrophils Percent Auto 17.8 % (45-73); Platelet Count 211 X10*3/uL (160-400); Red Blood Count 5.16 X10*6/uL (4.20-5.50); Red Cell Distribution Width 13.4 % (11.0-16.0); SCAN SMEAR FLAG 1; White Blood Count 4.5 X10*3/uL (4.8-10.8)
[2021-05-14 10:58] LABS: Alanine Aminotransferase 25 U/L (0-31); Albumin Level 4.2 g/dL (3.5-5.0); Alkaline Phosphatase 94 U/L (39-117); Anion Gap 13 (12-20); Aspartate Amino Transferase 24 U/L (5-31); Bilirubin Total 1.1 mg/dL (0.0-1.0); Blood Urea Nitrogen 13 mg/dL (9-16); C Reactive Protein 0.05 mg/dL (< or = 0.50); Calcium 9.4 mg/dL (8.4-10.2); Carbon Dioxide 28 mmol/L (22-29); Chloride 106 mmol/L (96-108); Estimated Glomerular Filt Rate > 60; Glucose Random 108 mg/dL (60-115); Potassium 4.2 mmol/L (3.3-5.1); Sodium 143 mmol/L (135-145); Total Protein 6.6 g/dL (6.5-8.0)
[2021-05-14 11:22] LABS: SLIDE REVIEW VERIFIED
[2021-05-14 11:30] LABS: Erythrocyte Sedimentation Rate 1 MM/HR (0-20)
== END 2021-05-14 09:23 | disposition home or self-care (01) ==
LOC: HO.LAB 09:22
PROVIDERS: PCP Internal Medicine; Visit Provider Nurse Practitioner Family
DX: M05.9 Rheumatoid arthritis with rheumatoid factor, unspecified (principal)
CPT/HCPCS: 36415; 80053; 85025; 85652; 86140

== ENCOUNTER 2021-05-15 08:29 | Outpatient (REF) | payer MEDICARE, MEDICAID, SELFPAY ==
--- NOTE | ~2021-05-15 | XR_ITS ---
EXAMINATION: XR HIP, RIGHT XR HIP, LEFT CLINICAL INFORMATION: Hip pain. Mild osteoarthritis. Follow-up. COMPARISON: Bilateral hip radiographs 11/14/2018. TECHNIQUE: Each hip is imaged in AP and lateral views. There are total of 4 views, 2 on each side. FINDINGS: Right: No fracture or dislocation or destructive process. There is borderline narrowing superior medial hip joint similar to prior study. No erosive change or chondrocalcinosis. Minimal spurring along the femoral head neck junction present lateral side again seen. Soft tissue planes are unremarkable. Left: No fracture or dislocation or destructive process. There are interval degenerative changes with mild increased narrowing superolateral hip joint and greater spurring at the acetabular rim and base of the femoral head. There is interval buttressing along the femoral neck since prior study. No visible erosive change or chondrocalcinosis. Soft tissue planes are unremarkable. XR/XR hip RT min 2V IMPRESSION: Right: Mild degenerative change similar to 2019. Left: Degenerative changes increased since prior exam 11/14/2018.
--- NOTE | ~2021-05-15 | XR_ITS ---
EXAMINATION: XR HIP, RIGHT XR HIP, LEFT CLINICAL INFORMATION: Hip pain. Mild osteoarthritis. Follow-up. COMPARISON: Bilateral hip radiographs 11/14/2018. TECHNIQUE: Each hip is imaged in AP and lateral views. There are total of 4 views, 2 on each side. FINDINGS: Right: No fracture or dislocation or destructive process. There is borderline narrowing superior medial hip joint similar to prior study. No erosive change or chondrocalcinosis. Minimal spurring along the femoral head neck junction present lateral side again seen. Soft tissue planes are unremarkable. Left: No fracture or dislocation or destructive process. There are interval degenerative changes with mild increased narrowing superolateral hip joint and greater spurring at the acetabular rim and base of the femoral head. There is interval buttressing along the femoral neck since prior study. No visible erosive change or chondrocalcinosis. Soft tissue planes are unremarkable. XR/XR hip LT min 2V IMPRESSION: Right: Mild degenerative change similar to 2019. Left: Degenerative changes increased since prior exam 11/14/2018.
== END 2021-05-15 08:30 | disposition home or self-care (01) ==
LOC: HO.XRAY 08:29
PROVIDERS: PCP Internal Medicine; Visit Provider Nurse Practitioner Family
DX: M05.9 Rheumatoid arthritis with rheumatoid factor, unspecified (principal); M25.551 Pain in right hip; M25.552 Pain in left hip
CPT/HCPCS: 73502; 99212

== ENCOUNTER 2021-06-12 13:51 | Outpatient (REF) | payer MEDICARE, MEDICAID, SELFPAY ==
[2021-06-12 14:01] LABS: Basophils Absolute Auto 0.1 X10*3/uL (0.0-0.2); Basophils Percent Auto 1.3 % (0-2); Eosinophils Absolute Auto 0.1 X10*3/uL (0.0-0.4); Eosinophils Percent Auto 2.1 % (0-4); Hematocrit 46.1 % (37.0-47.0); Hemoglobin 15.4 g/dl (12.0-16.0); Imm Gran Abs Auto 0.01 X10*3/uL (0.00-0.03); Imm Gran Pct Auto 0.3 % (0.0-0.4); Lymphocytes Absolute Auto 2.7 X10*3/uL (1.2-4.9); MANUAL DIFF FLAG SCAN; Mean Corpuscular HGB Conc 33.4 g/dl (31.0-35.0); Mean Corpuscular Hemoglobin 29.7 pg (27.0-33.0); Mean Corpuscular Volume 88.8 fL (80.0-98.0); Mean Platelet Volume 11.1 fL (9.4-12.3); Monocytes Absolute Auto 0.5 X10*3/uL (0.1-1.2); Monocytes Percent Auto 12.8 % (2-11); Neutrophils Absolute Auto 0.5 x10*3/uL (2.0-8.3); Neutrophils Percent Auto 13.5 % (45-73); Platelet Count 193 X10*3/uL (160-400); Red Blood Count 5.19 X10*6/uL (4.20-5.50); Red Cell Distribution Width 12.3 % (11.0-16.0); SCAN SMEAR FLAG 1; White Blood Count 3.9 X10*3/uL (4.8-10.8)
[2021-06-12 14:31] LABS: SLIDE REVIEW VERIFIED
[2021-06-16 13:17] LABS: NT-proBNP 74 pg/mL
== END 2021-06-12 13:52 | disposition home or self-care (01) ==
LOC: HO.LNP 13:51
PROVIDERS: PCP Internal Medicine; Visit Provider Internal Medicine
DX: I50.22 Chronic systolic (congestive) heart failure (principal); D72.820 Lymphocytosis (symptomatic)
CPT/HCPCS: 83880; 85025

== ENCOUNTER 2021-06-15 12:19 | Outpatient (REF) | payer MEDICARE, MEDICAID, SELFPAY ==
--- NOTE | ~2021-06-15 | XR_ITS ---
EXAMINATION: XR PELVIS CLINICAL INFORMATION: Hip pain. COMPARISON: 05/15/2021 TECHNIQUE: AP view of the pelvis. FINDINGS: Moderate osteoarthritis in the left hip is characterized by non-uniform joint space narrowing with subchondral sclerosis and marginal osteophytes. There is buttressing of the medial femoral neck. Mild osteoarthritis is evident in the right hip and bilateral SI joints. Enthesopathic spurring is present at the anterior superior iliac spines and greater trochanters. There is marked degenerative spondylosis in the lower lumbar spine with left convex lumbar scoliosis. No acute fractures. Surgical clip is present in the right inguinal region. XR/XR pelvis 1-2V IMPRESSION: 1. Moderate osteoarthritis in the left hip and more mild osteoarthritis in the right hip and SI joints. 2. Marked degenerative spondylosis in the lower lumbar spine.
== END 2021-06-15 12:20 | disposition home or self-care (01) ==
LOC: HO.HOSX 12:19
PROVIDERS: Visit Provider Orthopaedic Surgery
DX: M25.552 Pain in left hip (principal); M25.551 Pain in right hip; M05.9 Rheumatoid arthritis with rheumatoid factor, unspecified; I25.10 Atherosclerotic heart disease of native coronary artery without angina pectoris; I10 Essential (primary) hypertension; I35.0 Nonrheumatic aortic (valve) stenosis; Z87.891 Personal history of nicotine dependence; Z95.1 Presence of aortocoronary bypass graft; Z98.890 Other specified postprocedural states
CPT/HCPCS: 20610; 72170; 99202; J1100

== ENCOUNTER 2021-06-30 11:01 | Outpatient (REF) | payer MEDICARE, MEDICAID, SELFPAY ==
[2021-06-30 11:13] LABS: Appearance Urine CLOUDY; Color Urine YELLOW; Glucose Urine UA NEG (NEG); Leukocyte Esterase Urine 2+ (NEG); Nitrite Urine NEG (NEG); Specific Gravity - Urine 1.025 (1.005-1.025); Urine Blood TRACE (NEG); Urine Ketones NEG (NEG); Urine Protein NEG (NEG-TRACE)
[2021-06-30 11:26] LABS: Bacteria Urine 2+ /LPF; Basophils Absolute Auto 0.1 X10*3/uL (0.0-0.2); Basophils Percent Auto 1.5 % (0-2); Eosinophils Absolute Auto 0.1 X10*3/uL (0.0-0.4); Eosinophils Percent Auto 1.5 % (0-4); Hematocrit 43.3 % (37.0-47.0); Hemoglobin 14.5 g/dl (12.0-16.0); Imm Gran Abs Auto 0.01 X10*3/uL (0.00-0.03); Imm Gran Pct Auto 0.3 % (0.0-0.4); Lymphocytes Absolute Auto 2.8 X10*3/uL (1.2-4.9); Lymphocytes Percent Auto 70.1 % (20-40); MANUAL DIFF FLAG SCAN; Mean Corpuscular HGB Conc 33.5 g/dl (31.0-35.0); Mean Corpuscular Hemoglobin 29.7 pg (27.0-33.0); Mean Corpuscular Volume 88.7 fL (80.0-98.0); Mean Platelet Volume 11.5 fL (9.4-12.3); Monocytes Absolute Auto 0.5 X10*3/uL (0.1-1.2); Monocytes Percent Auto 11.7 % (2-11); Neutrophils Absolute Auto 0.6 x10*3/uL (2.0-8.3); Neutrophils Percent Auto 14.9 % (45-73); Platelet Count 186 X10*3/uL (160-400); Red Blood Count 4.88 X10*6/uL (4.20-5.50); SCAN SMEAR FLAG 1; Squamous Epithelial Cell Urine 2+ /LPF; White Blood Count 3.9 X10*3/uL (4.8-10.8)
[2021-06-30 11:27] LABS: Calcium Oxalate Crystals Urine 2+ /LPF
[2021-06-30 11:39] LABS: Estimated Average Glucose 103 mg/dL; Hemoglobin A1c % 5.2 %
[2021-06-30 11:54] LABS: SLIDE REVIEW VERIFIED
[2021-06-30 12:06] LABS: Alanine Aminotransferase 23 U/L (0-31); Albumin Level 3.9 g/dL (3.5-5.0); Alkaline Phosphatase 91 U/L (39-117); Anion Gap 12 (12-20); Aspartate Amino Transferase 19 U/L (5-31); Bilirubin Total 1.1 mg/dL (0.0-1.0); Blood Urea Nitrogen 19 mg/dL (9-16); Carbon Dioxide 26 mmol/L (22-29); Chloride 110 mmol/L (96-108); Cholesterol 131 mg/dL; Estimated Glomerular Filt Rate > 60; Glucose Fasting 94 mg/dL (60-99); HDL Cholesterol 49 mg/dL; LDL Cholesterol Calculated 62 mg/dl; Potassium 4.3 mmol/L (3.3-5.1); Sodium 144 mmol/L (135-145); Total Protein 6.3 g/dL (6.5-8.0); Triglycerides 102 mg/dL
[2021-06-30 12:20] LABS: Creatinine Urine 183.28 mg/dL
[2021-06-30 12:30] LABS: TSH reflex Free T4 3.59 uIU/mL (0.32-4.0)
== END 2021-06-30 11:02 | disposition home or self-care (01) ==
LOC: HO.LNP 11:01
PROVIDERS: Visit Provider Internal Medicine
DX: D72.820 Lymphocytosis (symptomatic) (principal); R73.09 Other abnormal glucose; E05.90 Thyrotoxicosis, unspecified without thyrotoxic crisis or storm; I10 Essential (primary) hypertension
CPT/HCPCS: 80053; 80061; 81001; 82043; 83036; 84443; 85025

== ENCOUNTER 2021-10-05 14:35 | Outpatient (REF) | payer MEDICARE, MEDICAID, SELFPAY ==
[2021-10-05 15:27] LABS: Basophils Absolute Auto 0.1 X10*3/uL (0.0-0.2); Basophils Percent Auto 1.6 % (0-2); Eosinophils Absolute Auto 0.1 X10*3/uL (0.0-0.4); Eosinophils Percent Auto 2.2 % (0-4); Hematocrit 42.5 % (37.0-47.0); Hemoglobin 14.1 g/dl (12.0-16.0); Imm Gran Abs Auto 0.01 X10*3/uL (0.00-0.03); Imm Gran Pct Auto 0.3 % (0.0-0.4); Lymphocytes Absolute Auto 2.1 X10*3/uL (1.2-4.9); Lymphocytes Percent Auto 57.8 % (20-40); MANUAL DIFF FLAG SCAN; Mean Corpuscular HGB Conc 33.2 g/dl (31.0-35.0); Mean Corpuscular Hemoglobin 28.4 pg (27.0-33.0); Mean Corpuscular Volume 85.7 fL (80.0-98.0); Mean Platelet Volume 10.5 fL (9.4-12.3); Monocytes Absolute Auto 0.5 X10*3/uL (0.1-1.2); Neutrophils Absolute Auto 0.9 x10*3/uL (2.0-8.3); Neutrophils Percent Auto 25.1 % (45-73); Platelet Count 241 X10*3/uL (160-400); Red Blood Count 4.96 X10*6/uL (4.20-5.50); Red Cell Distribution Width 12.9 % (11.0-16.0); SCAN SMEAR FLAG 1; White Blood Count 3.7 X10*3/uL (4.8-10.8)
[2021-10-05 15:48] LABS: SLIDE REVIEW VERIFIED
[2021-10-05 15:57] LABS: Alanine Aminotransferase 12 U/L (0-31); Alkaline Phosphatase 121 U/L (39-117); Anion Gap 14 (12-20); Aspartate Amino Transferase 15 U/L (5-31); Bilirubin Total 0.4 mg/dL (0.0-1.0); Blood Urea Nitrogen 17 mg/dL (9-16); C Reactive Protein 0.35 mg/dL (< or = 0.50); Calcium 9.3 mg/dL (8.4-10.2); Carbon Dioxide 22 mmol/L (22-29); Chloride 112 mmol/L (96-108); Estimated Glomerular Filt Rate > 60; Glucose Random 109 mg/dL (60-115); Potassium 4.3 mmol/L (3.3-5.1); Sodium 144 mmol/L (135-145); Total Protein 6.9 g/dL (6.5-8.0)
[2021-10-05 16:04] LABS: Erythrocyte Sedimentation Rate 3 MM/HR (0-20)
== END 2021-10-05 14:36 | disposition home or self-care (01) ==
LOC: HO.LAB 14:35
PROVIDERS: PCP Internal Medicine; Visit Provider Nurse Practitioner Family
DX: M06.9 Rheumatoid arthritis, unspecified (principal)
CPT/HCPCS: 36415; 80053; 85025; 85652; 86140

== ENCOUNTER → 2021-10-08 12:44 | Outpatient (BNVA) | payer MEDICARE, MEDICAID, SELFPAY | PROVIDERS: PCP Internal Medicine; Visit Provider Nurse Practitioner Family | DX: M05.9 Rheumatoid arthritis with rheumatoid factor, unspecified (principal); M16.0 Bilateral primary osteoarthritis of hip; M25.551 Pain in right hip; M25.552 Pain in left hip; Z79.899 Other long term (current) drug therapy | CPT/HCPCS: 99212 ==

== ENCOUNTER 2021-10-09 10:46 | Outpatient (REF) | payer MEDICARE, MEDICAID, SELFPAY ==
--- NOTE | ~2021-10-09 | MM_ITS ---
EXAMINATION: BONE DENSITOMETRY CLINICAL INDICATION: Osteoporosis. COMPARISON: Previous BD dated 02/08/2019 and baseline BD dated 10/05/2016. TECHNIQUE: Using a [facility] DXA System (software version: 13.1) manufactured by [employer], dual-energy x-ray absorptiometry was performed of the lumbar spine and left hip. The images are of good technical quality. Summary results are attached. FINDINGS: AP SPINE L1-L2 (excluding L3 and L4): The data of L1-L4 has been changed to exclude the L3 and L4 vertebral bodies, because degenerative changes at these levels may cause overestimation of lumbar spine density. Current: BMD 0.987 g/cm2, Z-score -0.5, T-score -1.5, osteopenia, 0.7% decrease from previous, 6.5% increase from baseline (<5% change is not significant). Prior: BMD 0.994 g/cm2. Baseline: BMD 0.927 g/cm2. LEFT FEMUR, NECK: Current: BMD 0.923 g/cm2, Z-score 0.3, T-score -0.8, normal. Prior: BMD 0.821 g/cm2. Baseline: BMD 0.751 g/cm2. LEFT FEMUR, TOTAL: Current: BMD 0.734 g/cm2, Z-score -1.4, T-score -2.2, osteopenia, 1.9% decrease from previous, 6.2% increase from baseline (<5% change is not significant). Prior: BMD 0.748 g/cm2. Baseline: BMD 0.691 g/cm2. IDENTIFIED RISK FACTORS: Menopause, low calcium intake, osteoporosis, rheumatoid arthritis, secondary osteoporosis. HISTORY OF FRACTURE: None listed. MEDICATIONS: Calcium or multivitamin. Vitamin D, ERT/SERMS. MM/XR DEXA axial skeleton IMPRESSION: 1. DIAGNOSIS: Osteopenia based on the lowest T-score value of -2.2 in the total femur applying World Health Organization criteria. 2. 10-YEAR FRACTURE RISK PREDICTION, FRAX: Major osteoporotic fracture (clinical spine, forearm, hip or shoulder) 5.2%. Hip fracture 0.3%. 3. Treatment Recommendations: NOF guidelines recommend consideration for treatment in postmenopausal women and men age 50 and older presenting with the following: -A hip or vertebral (clinical or morphometric) fracture. -T-score less than or equal to -2.5 at the femoral neck or spine after appropriate evaluation to exclude secondary causes. -Low bone mass at the hip or spine and a 10-year fracture probability by FRAX of greater than or equal to 3% for hip fracture or greater than or equal to 20% for major osteoporotic fracture based on the [place] adapted WHO algorithm. 4. Other Recommendations: All treatment decisions require clinical judgment and consideration of individual patient factors, including patient preferences, comorbidities, previous drug use, risk factors not captured in the FRAX model (e.g. frailty, falls, vitamin D deficiency, increased bone turnover, interval significant decline in bone density) and possible under or overestimation of fracture risk by FRAX. Additional medical evaluation for secondary cause of low bone mineral density may be appropriate. FUTURE SCAN RECOMMENDATION: People with diagnosed cases of osteoporosis or at high risk for fracture should have regular bone mineral density tests. For patients eligible for Medicare, routine testing is allowed once every 2 years. The testing frequency can be increased to one year for patients who have rapidly progressing disease, those who are receiving or discontinuing medical therapy to restore bone mass, or have additional risk factors.
[2021-10-09 11:56] LABS: MANUAL DIFF FLAG NO
[2021-10-09 12:17] LABS: Basophils Absolute Auto 0.1 X10*3/uL (0.0-0.2); Eosinophils Percent Auto 0.8 % (0-4); Hematocrit 41.9 % (37.0-47.0); Imm Gran Abs Auto 0.01 X10*3/uL (0.00-0.03); Imm Gran Pct Auto 0.2 % (0.0-0.4); Lymphocytes Absolute Auto 2.9 X10*3/uL (1.2-4.9); Lymphocytes Percent Auto 59.3 % (20-40); Mean Corpuscular HGB Conc 33.4 g/dl (31.0-35.0); Mean Corpuscular Hemoglobin 28.7 pg (27.0-33.0); Mean Platelet Volume 10.3 fL (9.4-12.3); Monocytes Absolute Auto 0.8 X10*3/uL (0.1-1.2); Monocytes Percent Auto 15.5 % (2-11); Neutrophils Absolute Auto 1.1 x10*3/uL (2.0-8.3); Neutrophils Percent Auto 23.2 % (45-73); Platelet Count 237 X10*3/uL (160-400); Red Blood Count 4.87 X10*6/uL (4.20-5.50); White Blood Count 4.9 X10*3/uL (4.8-10.8)
[2021-10-09 12:46] LABS: Alanine Aminotransferase 12 U/L (0-31); Albumin Level 4.2 g/dL (3.5-5.0); Alkaline Phosphatase 116 U/L (39-117); Anion Gap 13 (12-20); Aspartate Amino Transferase 15 U/L (5-31); Bilirubin Total 0.7 mg/dL (0.0-1.0); Blood Urea Nitrogen 13 mg/dL (9-16); C Reactive Protein 0.08 mg/dL (< or = 0.50); Calcium 9.8 mg/dL (8.4-10.2); Carbon Dioxide 27 mmol/L (22-29); Chloride 106 mmol/L (96-108); Estimated Glomerular Filt Rate > 60; Glucose Random 74 mg/dL (60-115); Potassium 3.8 mmol/L (3.3-5.1); Sodium 142 mmol/L (135-145); Total Protein 7.1 g/dL (6.5-8.0)
[2021-10-09 12:54] LABS: Erythrocyte Sedimentation Rate 2 MM/HR (0-20)
[2021-10-09 13:05] LABS: HBS Num1 1.26 mIU/mL (0-7.99); HBc Num1 0.06 S/CO (0.00-0.79); HBsAGNum1 0.14 S/CO (0.00-0.99); Hepatitis B Core Antibody Nonreactive (Nonreactive); Hepatitis B Surface Antigen Negative (Negative); ~Hepatitis B Surface Antibody NONREACTIVE (Nonreactive)
[2021-10-09 13:10] LABS: Hepatitis A Antibody IgM 0.28 Index (0-0.79); ~HepC Num1 0.13 S/CO (0.00-0.79); ~Hepatitis A Antibody IgM Nonreactive (Nonreactive); ~Hepatitis C Antibody Nonreactive (Nonreactive)
== END 2021-10-09 10:47 | disposition home or self-care (01) ==
LOC: HO.LAB 10:46
PROVIDERS: PCP Internal Medicine; Visit Provider Nurse Practitioner Family
DX: Z13.820 Encounter for screening for osteoporosis (principal); Z78.0 Asymptomatic menopausal state; M81.0 Age-related osteoporosis without current pathological fracture; M05.9 Rheumatoid arthritis with rheumatoid factor, unspecified; M06.9 Rheumatoid arthritis, unspecified
CPT/HCPCS: 36415; 77080; 80053; 85025; 85652; 86140; 86481; 86704; 86706; 86709; 86803; 87340

== ENCOUNTER → 2021-10-16 10:04 | Outpatient (BNVA) | payer MEDICARE, MEDICAID, SELFPAY | PROVIDERS: PCP Internal Medicine; Visit Provider Orthopaedic Surgery | DX: M06.861 Other specified rheumatoid arthritis, right knee (principal) | CPT/HCPCS: 20610; 99212; J1100 ==

== ENCOUNTER 2021-10-26 11:24 | Outpatient (REF) | payer MEDICARE, MEDICAID, SELFPAY ==
[2021-10-26 11:40] LABS: MANUAL DIFF FLAG NO
[2021-10-26 12:11] LABS: Basophils Percent Auto 0.5 % (0-2); Eosinophils Absolute Auto 0.1 X10*3/uL (0.0-0.4); Eosinophils Percent Auto 1.1 % (0-4); Hematocrit 41.1 % (37.0-47.0); Hemoglobin 13.4 g/dl (12.0-16.0); Imm Gran Abs Auto 0.02 X10*3/uL (0.00-0.03); Imm Gran Pct Auto 0.4 % (0.0-0.4); Lymphocytes Absolute Auto 1.6 X10*3/uL (1.2-4.9); Lymphocytes Percent Auto 29.6 % (20-40); Mean Corpuscular HGB Conc 32.6 g/dl (31.0-35.0); Mean Corpuscular Hemoglobin 28.3 pg (27.0-33.0); Mean Corpuscular Volume 86.9 fL (80.0-98.0); Mean Platelet Volume 10.1 fL (9.4-12.3); Monocytes Absolute Auto 0.8 X10*3/uL (0.1-1.2); Neutrophils Percent Auto 54.4 % (45-73); Platelet Count 220 X10*3/uL (160-400); Red Blood Count 4.73 X10*6/uL (4.20-5.50); Red Cell Distribution Width 13.8 % (11.0-16.0); White Blood Count 5.5 X10*3/uL (4.8-10.8)
[2021-10-26 12:26] LABS: Alanine Aminotransferase 13 U/L (0-31); Albumin Level 3.8 g/dL (3.5-5.0); Alkaline Phosphatase 107 U/L (39-117); Anion Gap 12 (12-20); Aspartate Amino Transferase 15 U/L (5-31); Bilirubin Total 1.2 mg/dL (0.0-1.0); Blood Urea Nitrogen 12 mg/dL (9-16); C Reactive Protein 4.87 mg/dL (< or = 0.50); Calcium 8.7 mg/dL (8.4-10.2); Carbon Dioxide 25 mmol/L (22-29); Chloride 106 mmol/L (96-108); Estimated Glomerular Filt Rate > 60; Glucose Random 148 mg/dL (60-115); Potassium 4.2 mmol/L (3.3-5.1); Sodium 139 mmol/L (135-145); Total Protein 6.5 g/dL (6.5-8.0)
[2021-10-26 12:51] LABS: Erythrocyte Sedimentation Rate 10 MM/HR (0-20)
[2021-10-28 08:37] LABS: Lyme Abs Screen <0.90 index
[2021-10-28 10:16] LABS: TS Negative Control Passed; TS Panel A 0; TS Panel B 0; TS Positive Control Passed; TSpotTB Negative (Negative)
== END 2021-10-26 11:25 | disposition home or self-care (01) ==
LOC: HO.LAB 11:24
PROVIDERS: PCP Internal Medicine; Visit Provider Nurse Practitioner Family
DX: M05.9 Rheumatoid arthritis with rheumatoid factor, unspecified (principal); M25.461 Effusion, right knee; Z11.1 Encounter for screening for respiratory tuberculosis
CPT/HCPCS: 36415; 80053; 85025; 85652; 86140; 86481; 86617; 86618

== ENCOUNTER → 2021-11-04 09:46 | Outpatient (BNVA) | payer MEDICARE, MEDICAID, SELFPAY | PROVIDERS: PCP Internal Medicine; Referring Provider Internal Medicine; Visit Provider Internal Medicine | DX: I25.10 Atherosclerotic heart disease of native coronary artery without angina pectoris (principal); I34.0 Nonrheumatic mitral (valve) insufficiency; I10 Essential (primary) hypertension; R60.0 Localized edema | CPT/HCPCS: 99212 ==

== ENCOUNTER 2021-11-26 06:58 | Outpatient (REF) | payer MEDICARE, MEDICAID, SELFPAY ==
[2021-11-26 08:14] LABS: Basophils Absolute Auto 0.1 X10*3/uL (0.0-0.2); Basophils Percent Auto 1.7 % (0-2); Eosinophils Absolute Auto 0.2 X10*3/uL (0.0-0.4); Eosinophils Percent Auto 4.5 % (0-4); Hematocrit 43.1 % (37.0-47.0); Imm Gran Abs Auto 0.01 X10*3/uL (0.00-0.03); Imm Gran Pct Auto 0.3 % (0.0-0.4); Lymphocytes Absolute Auto 1.7 X10*3/uL (1.2-4.9); Lymphocytes Percent Auto 47.5 % (20-40); MANUAL DIFF FLAG SCAN; Mean Corpuscular HGB Conc 32.5 g/dl (31.0-35.0); Mean Corpuscular Hemoglobin 27.9 pg (27.0-33.0); Mean Platelet Volume 11.6 fL (9.4-12.3); Monocytes Absolute Auto 0.5 X10*3/uL (0.1-1.2); Monocytes Percent Auto 14.3 % (2-11); Neutrophils Absolute Auto 1.1 x10*3/uL (2.0-8.3); Neutrophils Percent Auto 31.7 % (45-73); PLT CLUMP 1; Red Blood Count 5.01 X10*6/uL (4.20-5.50); Red Cell Distribution Width 14.6 % (11.0-16.0); SCAN SMEAR FLAG 1
[2021-11-26 08:15] LABS: Platelet Count 150 X10*3/uL (160-400); White Blood Count 3.6 X10*3/uL (4.8-10.8)
[2021-11-26 08:24] LABS: Alanine Aminotransferase 17 U/L (0-31); Albumin Level 3.8 g/dL (3.5-5.0); Alkaline Phosphatase 111 U/L (39-117); Anion Gap 15 (12-20); Aspartate Amino Transferase 20 U/L (5-31); Bilirubin Total 0.9 mg/dL (0.0-1.0); Blood Urea Nitrogen 14 mg/dL (9-16); C Reactive Protein 0.12 mg/dL (< or = 0.50); Carbon Dioxide 21 mmol/L (22-29); Chloride 108 mmol/L (96-108); Cholesterol 113 mg/dL; Estimated Glomerular Filt Rate > 60; Glucose Random 102 mg/dL (60-115); HDL Cholesterol 35 mg/dL; LDL Cholesterol Calculated 47 mg/dl; Sodium 140 mmol/L (135-145); Total Protein 6.4 g/dL (6.5-8.0); Triglycerides 155 mg/dL
[2021-11-26 08:35] LABS: SLIDE REVIEW VERIFIED
[2021-11-26 08:54] LABS: Erythrocyte Sedimentation Rate 2 MM/HR (0-20)
[2021-11-26 09:19] LABS: Reflex LDLD? No
[2021-11-29 20:37] LABS: TS Negative Control Passed; TS Panel A 0; TS Panel B 0; TS Positive Control Passed; TSpotTB Negative (Negative)
== END 2021-11-26 06:59 | disposition home or self-care (01) ==
LOC: HO.LAB 06:58
PROVIDERS: PCP Internal Medicine; Visit Provider Nurse Practitioner Family
DX: Z11.1 Encounter for screening for respiratory tuberculosis (principal); M05.9 Rheumatoid arthritis with rheumatoid factor, unspecified
CPT/HCPCS: 36415; 80053; 80061; 85025; 85652; 86140; 86481

== ENCOUNTER → 2021-11-27 07:47 | Outpatient (BNVA) | payer MEDICARE, MEDICAID, SELFPAY | PROVIDERS: PCP Internal Medicine; Visit Provider Nurse Practitioner Family | DX: M05.9 Rheumatoid arthritis with rheumatoid factor, unspecified (principal); M25.551 Pain in right hip; M25.552 Pain in left hip | CPT/HCPCS: 99212 ==

== ENCOUNTER 2022-01-29 09:53 | Outpatient (REF) | payer MEDICARE, MEDICAID, SELFPAY ==
[2022-01-29 10:21] LABS: MANUAL DIFF FLAG NO
[2022-01-29 11:21] LABS: Basophils Absolute Auto 0.1 X10*3/uL (0.0-0.2); Basophils Percent Auto 1.1 % (0-2); Eosinophils Absolute Auto 0.1 X10*3/uL (0.0-0.4); Eosinophils Percent Auto 1.2 % (0-4); Hematocrit 38.6 % (37.0-47.0); Hemoglobin 12.3 g/dl (12.0-16.0); Imm Gran Abs Auto 0.02 X10*3/uL (0.00-0.03); Imm Gran Pct Auto 0.3 % (0.0-0.4); Lymphocytes Absolute Auto 3.8 X10*3/uL (1.2-4.9); Lymphocytes Percent Auto 49.8 % (20-40); Mean Corpuscular HGB Conc 31.9 g/dl (31.0-35.0); Mean Corpuscular Hemoglobin 25.8 pg (27.0-33.0); Mean Corpuscular Volume 81.1 fL (80.0-98.0); Mean Platelet Volume 9.7 fL (9.4-12.3); Monocytes Absolute Auto 0.6 X10*3/uL (0.1-1.2); Monocytes Percent Auto 7.5 % (2-11); Neutrophils Absolute Auto 3.1 x10*3/uL (2.0-8.3); Neutrophils Percent Auto 40.1 % (45-73); Platelet Count 521 X10*3/uL (160-400); Red Blood Count 4.76 X10*6/uL (4.20-5.50); White Blood Count 7.6 X10*3/uL (4.8-10.8)
[2022-01-29 11:51] LABS: Alanine Aminotransferase 8 U/L (0-31); Albumin Level 3.7 g/dL (3.5-5.0); Alkaline Phosphatase 115 U/L (39-117); Anion Gap 17 (12-20); Aspartate Amino Transferase 15 U/L (5-31); Bilirubin Total 0.5 mg/dL (0.0-1.0); Blood Urea Nitrogen 16 mg/dL (9-16); Calcium 8.9 mg/dL (8.4-10.2); Carbon Dioxide 24 mmol/L (22-29); Chloride 106 mmol/L (96-108); Estimated Glomerular Filt Rate > 60; Glucose Random 92 mg/dL (60-115); Potassium 3.6 mmol/L (3.3-5.1); Sodium 143 mmol/L (135-145)
[2022-01-29 11:57] LABS: Erythrocyte Sedimentation Rate 23 MM/HR (0-20)
== END 2022-01-29 09:54 | disposition home or self-care (01) ==
LOC: HO.LAB 09:53
PROVIDERS: PCP Internal Medicine; Visit Provider Nurse Practitioner Family
DX: M05.9 Rheumatoid arthritis with rheumatoid factor, unspecified (principal)
CPT/HCPCS: 36415; 80053; 85025; 85652; 86140

== ENCOUNTER 2022-02-05 13:30 | Outpatient (REF) | payer MEDICARE, MEDICAID, SELFPAY ==
[2022-02-05 13:54] LABS: Alanine Aminotransferase 11 U/L (0-31); Albumin Level 3.6 g/dL (3.5-5.0); Alkaline Phosphatase 112 U/L (39-117); Aspartate Amino Transferase 12 U/L (5-31); Bilirubin Direct 0.3 mg/dL (0.0-0.5); Bilirubin Total 0.6 mg/dL (0.0-1.0); Cholesterol 109 mg/dL; Glucose Fasting 95 mg/dL (60-99); HDL Cholesterol 39 mg/dL; LDL Cholesterol Calculated 49 mg/dl; Total Protein 6.5 g/dL (6.5-8.0); Triglycerides 106 mg/dL
[2022-02-05 14:03] LABS: Estimated Average Glucose 105 mg/dL; Hemoglobin A1c % 5.3 %
== END 2022-02-05 13:31 | disposition home or self-care (01) ==
LOC: HO.LNP 13:30
PROVIDERS: Visit Provider Internal Medicine
DX: R73.09 Other abnormal glucose (principal); E78.00 Pure hypercholesterolemia, unspecified
CPT/HCPCS: 80061; 80076; 82947; 83036

== ENCOUNTER 2022-02-08 09:27 | Outpatient (REF) | payer MEDICARE, MEDICAID, SELFPAY ==
--- NOTE | ~2022-02-08 | MM_ITS ---
EXAMINATION: MM SCREENING DIGITAL BREAST TOMOSYNTHESIS, BILATERAL CLINICAL INFORMATION: Screening. Asymptomatic. The lifetime risk of breast cancer based on the Tyrer-Cuzick Model is 6%. COMPARISON: Mammography: 11/28/2020, 08/08/2019, 08/02/2018 TECHNIQUE: Digital breast tomosynthesis is performed in both the craniocaudal and mediolateral oblique views along with computer-aided detection (CAD). Synthesized 2D images are generated from the tomosynthesis. FINDINGS: There are scattered areas of fibroglandular density (ACR BI-RADS breast composition Category b). There are no significant masses, abnormal calcifications, or other abnormalities. Parenchymal pattern is similar to prior studies. No developing density. The axilla and skin contours are unremarkable. MM/MM tomosynthesis screening BI IMPRESSION: No mammographic evidence of malignancy. ASSESSMENT: BI-RADS 1: Negative RECOMMENDATION: Routine annual mammography screening. This patient's information was entered into a reminder system with a target due date for their next mammogram.
== END 2022-02-08 09:28 | disposition home or self-care (01) ==
LOC: HO.MAMMO 09:27
PROVIDERS: PCP Internal Medicine; Visit Provider Internal Medicine
DX: Z12.31 Encounter for screening mammogram for malignant neoplasm of breast (principal)
CPT/HCPCS: 77063; 77067

== ENCOUNTER → 2022-02-23 10:36 | Outpatient (BNVA) | payer MEDICARE, MEDICAID, SELFPAY | PROVIDERS: PCP Internal Medicine; Visit Provider Nurse Practitioner Family | DX: M05.9 Rheumatoid arthritis with rheumatoid factor, unspecified (principal); M25.551 Pain in right hip; M25.552 Pain in left hip | CPT/HCPCS: 99212 ==

== ENCOUNTER → 2022-03-04 10:02 | Outpatient (BNVA) | payer MEDICARE, MEDICAID, SELFPAY | PROVIDERS: PCP Internal Medicine; Visit Provider Orthopaedic Surgery | DX: M17.11 Unilateral primary osteoarthritis, right knee (principal); M06.9 Rheumatoid arthritis, unspecified; Z95.1 Presence of aortocoronary bypass graft | CPT/HCPCS: 99212 ==

== ENCOUNTER 2022-03-19 07:50 | Outpatient (REF) | payer MEDICARE, MEDICAID, SELFPAY ==
[2022-03-19 08:02] LABS: MANUAL DIFF FLAG NO
[2022-03-19 08:21] LABS: Basophils Absolute Auto 0.1 X10*3/uL (0.0-0.2); Basophils Percent Auto 1.2 % (0-2); Eosinophils Absolute Auto 0.2 X10*3/uL (0.0-0.4); Hematocrit 40.9 % (37.0-47.0); Hemoglobin 13.2 g/dl (12.0-16.0); Imm Gran Abs Auto 0.01 X10*3/uL (0.00-0.03); Imm Gran Pct Auto 0.2 % (0.0-0.4); Lymphocytes Percent Auto 49.4 % (20-40); Mean Corpuscular HGB Conc 32.3 g/dl (31.0-35.0); Mean Corpuscular Hemoglobin 25.6 pg (27.0-33.0); Mean Corpuscular Volume 79.4 fL (80.0-98.0); Mean Platelet Volume 9.9 fL (9.4-12.3); Monocytes Absolute Auto 0.6 X10*3/uL (0.1-1.2); Monocytes Percent Auto 13.8 % (2-11); Neutrophils Absolute Auto 1.3 x10*3/uL (2.0-8.3); Neutrophils Percent Auto 31.4 % (45-73); Platelet Count 207 X10*3/uL (160-400); Red Blood Count 5.15 X10*6/uL (4.20-5.50); Red Cell Distribution Width 17.3 % (11.0-16.0); White Blood Count 4.1 X10*3/uL (4.8-10.8)
[2022-03-19 08:48] LABS: Alanine Aminotransferase 10 U/L (0-31); Aspartate Amino Transferase 14 U/L (5-31); C Reactive Protein 2.31 mg/dL (< or = 0.50); Estimated Glomerular Filt Rate > 60
[2022-03-19 09:00] LABS: Erythrocyte Sedimentation Rate 7 MM/HR (0-20)
== END 2022-03-19 07:51 | disposition home or self-care (01) ==
LOC: HO.LAB 07:50
PROVIDERS: PCP Internal Medicine; Visit Provider Nurse Practitioner Family
DX: M05.9 Rheumatoid arthritis with rheumatoid factor, unspecified (principal); Z79.899 Other long term (current) drug therapy
CPT/HCPCS: 36415; 82565; 84450; 84460; 85025; 85652; 86140

== ENCOUNTER 2022-03-29 10:21 | Outpatient (REF) | payer MEDICARE, MEDICAID, SELFPAY ==
[2022-03-29 11:02] LABS: MANUAL DIFF FLAG NO
[2022-03-29 11:43] LABS: Basophils Absolute Auto 0.1 X10*3/uL (0.0-0.2); Basophils Percent Auto 0.9 % (0-2); Eosinophils Absolute Auto 0.1 X10*3/uL (0.0-0.4); Eosinophils Percent Auto 1.6 % (0-4); Hemoglobin 12.5 g/dl (12.0-16.0); Imm Gran Abs Auto 0.02 X10*3/uL (0.00-0.03); Imm Gran Pct Auto 0.3 % (0.0-0.4); Lymphocytes Absolute Auto 2.1 X10*3/uL (1.2-4.9); Lymphocytes Percent Auto 29.7 % (20-40); Mean Corpuscular HGB Conc 32.1 g/dl (31.0-35.0); Mean Corpuscular Hemoglobin 25.6 pg (27.0-33.0); Mean Corpuscular Volume 79.8 fL (80.0-98.0); Mean Platelet Volume 9.7 fL (9.4-12.3); Monocytes Absolute Auto 0.7 X10*3/uL (0.1-1.2); Monocytes Percent Auto 10.6 % (2-11); Neutrophils Percent Auto 56.9 % (45-73); Platelet Count 424 X10*3/uL (160-400); Red Blood Count 4.89 X10*6/uL (4.20-5.50); Red Cell Distribution Width 17.1 % (11.0-16.0)
== END 2022-03-29 10:22 | disposition home or self-care (01) ==
LOC: HO.LAB 10:21
PROVIDERS: PCP Internal Medicine; Visit Provider Nurse Practitioner Family
DX: M05.9 Rheumatoid arthritis with rheumatoid factor, unspecified (principal)
CPT/HCPCS: 36415; 85025

== ENCOUNTER → 2022-03-31 08:56 | Outpatient (BNVA) | payer MEDICARE, MEDICAID, SELFPAY | PROVIDERS: PCP Internal Medicine; Visit Provider Nurse Practitioner Family | DX: Z01.810 Encounter for preprocedural cardiovascular examination (principal); I25.10 Atherosclerotic heart disease of native coronary artery without angina pectoris; I34.0 Nonrheumatic mitral (valve) insufficiency; I10 Essential (primary) hypertension; R60.0 Localized edema; M05.9 Rheumatoid arthritis with rheumatoid factor, unspecified; M25.551 Pain in right hip; M25.552 Pain in left hip; M06.9 Rheumatoid arthritis, unspecified | CPT/HCPCS: 93005; 99212 ==

== ENCOUNTER 2022-04-07 08:52 | Outpatient (REF) | payer MEDICARE, MEDICAID, SELFPAY ==
[2022-04-07 12:13] LABS: Anion Gap 20 (12-20); Blood Urea Nitrogen 14 mg/dL (9-16); Calcium 9.1 mg/dL (8.4-10.2); Carbon Dioxide 24 mmol/L (22-29); Chloride 105 mmol/L (96-108); Estimated Glomerular Filt Rate > 60; Glucose Random 91 mg/dL (60-115); Potassium 4.8 mmol/L (3.3-5.1); Sodium 144 mmol/L (135-145)
== END 2022-04-07 08:53 | disposition home or self-care (01) ==
LOC: HO.10HDL 08:52
PROVIDERS: Absent Provider Internal Medicine; Visit Provider Orthopaedic Surgery
DX: Z01.812 Encounter for preprocedural laboratory examination (principal)
CPT/HCPCS: 36415; 80048

== ENCOUNTER 2022-04-27 10:07 | Outpatient (REF) | payer MEDICARE, MEDICAID, SELFPAY ==
[2022-04-27 10:29] LABS: MANUAL DIFF FLAG NO
[2022-04-27 10:40] LABS: Basophils Absolute Auto 0.1 X10*3/uL (0.0-0.2); Basophils Percent Auto 1.4 % (0-2); Eosinophils Absolute Auto 0.1 X10*3/uL (0.0-0.4); Eosinophils Percent Auto 2.4 % (0-4); Hematocrit 38.7 % (37.0-47.0); Hemoglobin 12.5 g/dl (12.0-16.0); Imm Gran Abs Auto 0.01 X10*3/uL (0.00-0.03); Imm Gran Pct Auto 0.2 % (0.0-0.4); Lymphocytes Absolute Auto 2.3 X10*3/uL (1.2-4.9); Mean Corpuscular HGB Conc 32.3 g/dl (31.0-35.0); Mean Corpuscular Hemoglobin 25.7 pg (27.0-33.0); Mean Corpuscular Volume 79.5 fL (80.0-98.0); Mean Platelet Volume 9.7 fL (9.4-12.3); Monocytes Absolute Auto 0.6 X10*3/uL (0.1-1.2); Monocytes Percent Auto 11.2 % (2-11); Neutrophils Absolute Auto 2.4 x10*3/uL (2.0-8.3); Neutrophils Percent Auto 43.8 % (45-73); Platelet Count 287 X10*3/uL (160-400); Red Blood Count 4.87 X10*6/uL (4.20-5.50); White Blood Count 5.5 X10*3/uL (4.8-10.8)
[2022-04-27 11:04] LABS: Alanine Aminotransferase 11 U/L (0-31); Albumin Level 3.9 g/dL (3.5-5.0); Alkaline Phosphatase 135 U/L (39-117); Anion Gap 15 (12-20); Aspartate Amino Transferase 13 U/L (5-31); Bilirubin Total 0.6 mg/dL (0.0-1.0); Blood Urea Nitrogen 16 mg/dL (9-16); C Reactive Protein 1.25 mg/dL (< or = 0.50); Calcium 9.3 mg/dL (8.4-10.2); Carbon Dioxide 28 mmol/L (22-29); Chloride 104 mmol/L (96-108); Estimated Glomerular Filt Rate > 60; Glucose Random 91 mg/dL (60-115); Sodium 143 mmol/L (135-145); Total Protein 7.2 g/dL (6.5-8.0)
[2022-04-27 11:16] LABS: Erythrocyte Sedimentation Rate 10 MM/HR (0-20)
== END 2022-04-27 10:08 | disposition home or self-care (01) ==
LOC: HO.10HDL 10:07
PROVIDERS: Visit Provider Nurse Practitioner Family
DX: M05.9 Rheumatoid arthritis with rheumatoid factor, unspecified (principal)
CPT/HCPCS: 36415; 80053; 85025; 85652; 86140

== ENCOUNTER → 2022-04-28 13:03 | Outpatient (BNVA) | payer MEDICARE, MEDICAID, SELFPAY | PROVIDERS: PCP Internal Medicine; Visit Provider Nurse Practitioner Family | DX: M05.861 Other rheumatoid arthritis with rheumatoid factor of right knee (principal); M25.551 Pain in right hip; M25.552 Pain in left hip | CPT/HCPCS: Q3014 ==

== ENCOUNTER 2022-06-02 09:39 | Outpatient (REF) | payer MEDICARE, MEDICAID, SELFPAY ==
[2022-06-02 11:01] LABS: MANUAL DIFF FLAG NO
[2022-06-02 11:07] LABS: Basophils Absolute Auto 0.1 X10*3/uL (0.0-0.2); Basophils Percent Auto 1.4 % (0-2); Eosinophils Absolute Auto 0.1 X10*3/uL (0.0-0.4); Eosinophils Percent Auto 1.8 % (0-4); Hemoglobin 13.6 g/dl (12.0-16.0); Imm Gran Abs Auto 0.02 X10*3/uL (0.00-0.03); Imm Gran Pct Auto 0.3 % (0.0-0.4); Lymphocytes Absolute Auto 3.4 X10*3/uL (1.2-4.9); Lymphocytes Percent Auto 52.1 % (20-40); Mean Corpuscular HGB Conc 32.4 g/dl (31.0-35.0); Mean Corpuscular Hemoglobin 26.5 pg (27.0-33.0); Mean Corpuscular Volume 81.7 fL (80.0-98.0); Mean Platelet Volume 10.8 fL (9.4-12.3); Monocytes Absolute Auto 0.6 X10*3/uL (0.1-1.2); Monocytes Percent Auto 8.4 % (2-11); Neutrophils Absolute Auto 2.4 x10*3/uL (2.0-8.3); Platelet Count 355 X10*3/uL (160-400); Red Blood Count 5.14 X10*6/uL (4.20-5.50); Red Cell Distribution Width 16.4 % (11.0-16.0); White Blood Count 6.5 X10*3/uL (4.8-10.8)
[2022-06-02 11:18] LABS: Anion Gap 13 (12-20); Blood Urea Nitrogen 16 mg/dL (9-16); Calcium 8.9 mg/dL (8.4-10.2); Carbon Dioxide 25 mmol/L (22-29); Chloride 107 mmol/L (96-108); Estimated Glomerular Filt Rate > 60; Glucose Random 115 mg/dL (60-115); Potassium 4.4 mmol/L (3.3-5.1); Sodium 141 mmol/L (135-145)
== END 2022-06-02 09:40 | disposition home or self-care (01) ==
LOC: HO.10HDL 09:39
PROVIDERS: Visit Provider Orthopaedic Surgery
DX: Z01.812 Encounter for preprocedural laboratory examination (principal)
CPT/HCPCS: 36415; 80048; 85025

== ENCOUNTER → 2022-06-03 11:49 | Outpatient (BNVA) | payer MEDICARE, MEDICAID, SELFPAY | PROVIDERS: PCP Internal Medicine; Visit Provider Nurse Practitioner Family | DX: M05.9 Rheumatoid arthritis with rheumatoid factor, unspecified (principal); M25.551 Pain in right hip; M25.552 Pain in left hip; M17.11 Unilateral primary osteoarthritis, right knee; Z79.899 Other long term (current) drug therapy | CPT/HCPCS: 99212 ==

== ENCOUNTER 2022-06-17 05:47 | Outpatient (REF) | payer MEDICARE, MEDICAID, SELFPAY ==
--- NOTE | ~2022-06-17 | XR_ITS ---
EXAMINATION: KNEE X-RAY CLINICAL INFORMATION: Pain COMPARISON: None TECHNIQUE: Standing AP view of both knees and lateral and sunrise view of the right knee FINDINGS: Right knee: There is mild valgus angulation. Lateral subluxation of the patella on the sunrise view. Bone alignment is otherwise normal. No fracture or dislocation. Severe Tricompartment arthritis. Moderate joint effusion. Standing AP view of the left knee is unremarkable. XR/XR knee standing BI IMPRESSION: Right knee: Tricompartment arthritis and joint effusion.
--- NOTE | ~2022-06-17 | XR_ITS ---
EXAMINATION: KNEE X-RAY CLINICAL INFORMATION: Pain COMPARISON: None TECHNIQUE: Standing AP view of both knees and lateral and sunrise view of the right knee FINDINGS: Right knee: There is mild valgus angulation. Lateral subluxation of the patella on the sunrise view. Bone alignment is otherwise normal. No fracture or dislocation. Severe Tricompartment arthritis. Moderate joint effusion. Standing AP view of the left knee is unremarkable. XR/XR knee RT 2V IMPRESSION: Right knee: Tricompartment arthritis and joint effusion.
[2022-06-17 11:32] LABS: C Reactive Protein 0.34 mg/dL (< or = 0.50)
[2022-06-17 11:41] LABS: Erythrocyte Sedimentation Rate 5 MM/HR (0-20)
== END 2022-06-17 05:48 | disposition home or self-care (01) ==
LOC: HO.HOSX 05:47
PROVIDERS: Nurse Practitioner Family; Visit Provider Physician Assistant
DX: M17.11 Unilateral primary osteoarthritis, right knee (principal); M25.562 Pain in left knee; M05.9 Rheumatoid arthritis with rheumatoid factor, unspecified
CPT/HCPCS: 36415; 73560; 73565; 85652; 86140; 99212

== ENCOUNTER 2022-06-22 05:49 | Day surgery (SDC) | payer MEDICARE, MEDICAID, SELFPAY ==
[2022-04-21 12:11] VITALS: BP 158/77; PULSE 59; RESP 16; O2SAT 99; BMI 30.8
--- NOTE | 2022-04-21 12:31 | HO.ANESPROP2 ---
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 (Acute) Trochanteric bursitis, left hip (Acute) Effusion into joint (Acute) Rheumatoid arthritis involving right knee (Acute) Leg edema (Acute) Hip pain, bilateral (Acute) History of lumbosacral spine surgery (Acute) Preoperative cardiovascular examination (Acute) Osteoarthritis of right knee (Acute) Non-rheumatic mitral regurgitation (Acute) Status post coronary artery bypass graft (Acute) Essential hypertension (Acute) Atherosclerotic cardiovascular disease (Acute) Seropositive rheumatoid arthritis (Acute) Coronary arteriosclerosis (Acute) Past Medical History Medical History Atherosclerotic cardiovascular disease Coronary arteriosclerosis Essential hypertension Hx of thyroid cancer Non-rheumatic mitral regurgitation Personal history of COVID-19 Seropositive rheumatoid arthritis Family History Family History Mother HTN (hypertension) Family history of problems with anesthesia: No Surgical History Surgical History History of back surgery History of thyroid surgery Hx of bilateral cataract extraction Hx of colonoscopy Status post coronary artery bypass graft History of Problems with Anesthesia: No Social History Social History Are you a primary critical care registered nurse to a significant other at home: No Do you presently have visiting nurse or other home services: No Alcohol intake: current Alcohol intake frequency: holidays/special occasions only Alcohol type: wine Patient Tobacco Use Status: Former Tobacco user Quit Date: Tobacco use type: Cigarette Cigarettes Per Day: 3 Years Smoked: 10 Meds Allergies Allergy/AdvReac Type Severity Reaction Status Date / Time No Known Allergies Allergy Verified 04/28/22 13:15 [No Known Allergies*] Home Medications Medication Instructions Recorded Confirmed Last Taken Type aspirin 81 mg tablet,delayed 81 mg PO DAILY 05/30/20 04/21/22 Unknown History release (Adult Low Dose Aspirin) atorvastatin 80 mg tablet 80 mg PO BEDTIME 05/30/20 04/21/22 Unknown History calcium carbonate 500 mg-vitamin 1 tab PO DAILY 05/30/20 04/21/22 Unknown History D3 5 mcg (200 unit) tablet (Calcium 500 + D) levothyroxine 112 mcg tablet 112 mcg PO 6XW 10/20/20 04/21/22 Unknown History omeprazole 20 mg capsule,delayed 20 mg PO DAILY 10/20/20 04/21/22 Unknown History release acetaminophen 325 mg tablet 650 mg PO Q6H PRN Pain 04/21/22 04/21/22 Unknown History diclofenac sodium 1 % topical gel 2 g topical BID PRN Pain 04/21/22 04/21/22 Unknown History Exam Exam Date and Time: April 21, 2022 1231 Height,Weight and Vital Signs: Height 5 ft 3 in Weight 78.925 kg Last Vital Signs Pulse 59 04/21/22 12:11 Resp 16 04/21/22 12:11 BP 158/77 H 04/21/22 12:11 Pulse Ox 99 04/21/22 12:11 O2 Del Method 04/21/22 12:11 Pertinent Lab Results Pertinent Lab Results: Laboratory Tests 03/29/22 04/07/22 11:01 08:55 WBC 7.0 Hgb 12.5 Hct 39.0 Plt Count 424 H D Sodium 144 Potassium 4.8 D Chloride 105 Carbon Dioxide 24 BUN 14 Creatinine 0.59 Narrative Narrative: EKG 03/2022 sinus rhythm at 69/Min; possible old inferior infarct; nonspecific T-wave findings in the anterior leads.? Normal LA and corrected QT. Overall, similar to before. ECHO 09/2020 Conclusions: - The left ventricular systolic function is normal.? The visually estimated ejection fraction is between 55-60%. ? - The basal inferior and basal inferoseptal segments are ? akinetic.? - The posterior mitral leaflet has restricted mobility.? There is mild to moderate mitral valve regurgitation. ? ? Airway Mallampati Class: I TM Dist: >3cm Neck ROM: Full Loose/Missing/Broken Teeth: Yes (Crowned molars, implants bilateral lower sides, two top right pulled) Heart: RRR Lungs: CTAB Assessment and Plan Assessment Anesthesia Assessment: Anesthesia Plan Discussed and PAT Visit Final Anesthetic Review Family History of Problems with Anesthesia: No History of Problems with Anesthesia: No
[2022-04-21 15:35] LABS: MRSA Nasal PCR NEGATIVE (Negative); SA Nasal PCR POSITIVE (Negative)
[2022-06-17 12:34] LABS: MRSA Nasal PCR NEGATIVE (Negative); SA Nasal PCR POSITIVE (Negative)
--- NOTE | 2022-06-18 09:08 | HO.ANESPROP2 ---
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) Trochanteric bursitis, left hip (Acute) Effusion into joint (Acute) Rheumatoid arthritis involving right knee (Acute) Leg edema (Acute) Hip pain, bilateral (Acute) History of lumbosacral spine surgery (Acute) Preoperative cardiovascular examination (Acute) Osteoarthritis of right knee (Acute) Non-rheumatic mitral regurgitation (Acute) Status post coronary artery bypass graft (Acute) Essential hypertension (Acute) Atherosclerotic cardiovascular disease (Acute) Seropositive rheumatoid arthritis (Acute) Coronary arteriosclerosis (Acute) Past Medical History Medical History Atherosclerotic cardiovascular disease Coronary arteriosclerosis Essential hypertension Hx of thyroid cancer Non-rheumatic mitral regurgitation Personal history of COVID-19 Seropositive rheumatoid arthritis Family History Family History Mother HTN (hypertension) Family history of problems with anesthesia: No Surgical History Surgical History History of back surgery History of thyroid surgery Hx of bilateral cataract extraction Hx of colonoscopy Status post coronary artery bypass graft History of Problems with Anesthesia: No Social History Social History Are you a primary farm or ranch animal caretaker to a significant other at home: No Do you presently have visiting nurse or other home services: No Alcohol intake: current Alcohol intake frequency: holidays/special occasions only Alcohol type: wine Patient Tobacco Use Status: Former Tobacco user Quit Date: Tobacco use type: Cigarette Cigarettes Per Day: 3 Years Smoked: 10 Use of substances other than those prescribed or required for medical reasons: No Have you been hit, kicked, punched, or otherwise hurt by someone within the past year? If so, by whom?: No Spiritual Healthcare Practices: no Adventist Healthcare Practices: no Cultural Healthcare Practices: no Are you DNR?: No Advance Directives: No Advance Directives Information Provided: Yes Advance Directives on File: No Recently lost weight without trying: No Nutrition Risks: No Nutritional Risk Meds Allergies Allergy/AdvReac Type Severity Reaction Status Date / Time No Known Allergies Allergy Verified 06/03/22 12:01 [No Known Allergies*] Home Medications Medication Instructions Recorded Confirmed Last Taken Type aspirin 81 mg tablet,delayed 81 mg PO DAILY 05/30/20 04/21/22 06/15/22 History release (Adult Low Dose Aspirin) atorvastatin 80 mg tablet 80 mg PO BEDTIME 05/30/20 04/21/22 06/21/22 History calcium carbonate 500 mg-vitamin 1 tab PO DAILY 05/30/20 04/21/22 06/21/22 History D3 5 mcg (200 unit) tablet (Calcium 500 + D) levothyroxine 112 mcg tablet 112 mcg PO MOTUWETHFRSA 10/20/20 06/22/22 06/22/22 History omeprazole 20 mg capsule,delayed 20 mg PO DAILY 10/20/20 04/21/22 06/22/22 History release acetaminophen 325 mg tablet 650 mg PO Q6H PRN Pain 04/21/22 04/21/22 06/21/22 History Exam Exam Date and Time: June 18, 2022 0908 Height,Weight and Vital Signs: Height 5 ft 3 in Weight 78.925 kg Last Vital Signs Pulse 59 04/21/22 12:11 Resp 16 04/21/22 12:11 BP 158/77 H 04/21/22 12:11 Pulse Ox 99 04/21/22 12:11 O2 Del Method 04/21/22 12:11 Pertinent Lab Results Pertinent Lab Results: Laboratory Tests 04/21/22 04/21/22 06/17/22 12:30 13:10 10:28 Nasal Screen MRSA (PCR) NEGATIVE Nasal S. aureus Screen POSITIVE A Nasal MRSA/S.aureus Interp SEE NOTE Blood Type O Negative O Negative Antibody Screen NEGATIVE NEGATIVE 06/17/22 10:45 Nasal Screen MRSA (PCR) NEGATIVE Nasal S. aureus Screen POSITIVE A Nasal MRSA/S.aureus Interp SEE NOTE Blood Type Antibody Screen Laboratory Tests 06/02/22 06/02/22 09:47 09:47 WBC 6.5 Hgb 13.6 Hct 42.0 Plt Count 355 Sodium 141 Potassium 4.4 Chloride 107 Carbon Dioxide 25 BUN 16 Creatinine 0.62 Narrative Narrative: EKG 03/2022 sinus rhythm at 69/Min; possible old inferior infarct; nonspecific T-wave findings in the anterior leads.? Normal [place] and corrected QT. Overall, similar to before. ECHO 2020 Conclusions: - The left ventricular systolic function is normal.? The visually estimated ejection fraction is between 55-60%. ? - The basal inferior and basal inferoseptal segments are ? akinetic.? - The posterior mitral leaflet has restricted mobility.? There is mild to moderate mitral valve regurgitation. ?? Assessment and Plan Assessment Anesthesia Assessment: Chart Reviewed Final Anesthetic Review Family History of Problems with Anesthesia: No History of Problems with Anesthesia: No Documented by User: Valeriy Coley MD 06/22/22 15:50 [facility] Past Medical History Medical History Atherosclerotic cardiovascular disease Coronary arteriosclerosis Essential hypertension Hx of thyroid cancer Non-rheumatic mitral regurgitation Personal history of COVID-19 Seropositive rheumatoid arthritis Family History Family History Mother HTN (hypertension) Surgical History Surgical History History of back surgery History of thyroid surgery Hx of bilateral cataract extraction Hx of colonoscopy Status post coronary artery bypass graft Social History Social History Are you a primary farm or ranch animal caretaker to a significant other at home: No Do you presently have visiting nurse or other home services: No Alcohol intake: current Alcohol intake frequency: holidays/special occasions only Alcohol type: wine Patient Tobacco Use Status: Former Tobacco user Quit Date: Tobacco use type: Cigarette Cigarettes Per Day: 3 Years Smoked: 10 Use of substances other than those prescribed or required for medical reasons: No Have you been hit, kicked, punched, or otherwise hurt by someone within the past year? If so, by whom?: No Spiritual Healthcare Practices: no Adventist Healthcare Practices: no Cultural Healthcare Practices: no Are you DNR?: No Advance Directives: No Advance Directives Information Provided: Yes Advance Directives on File: No Recently lost weight without trying: No Nutrition Risks: No Nutritional Risk Meds Allergies Allergy/AdvReac Type Severity Reaction Status Date / Time No Known Allergies Allergy Verified 06/03/22 12:01 [No Known Allergies*] Home Medications Medication Instructions Recorded Confirmed Last Taken Type aspirin 81 mg tablet,delayed 81 mg PO DAILY 05/30/20 04/21/22 06/15/22 History release (Adult Low Dose Aspirin) atorvastatin 80 mg tablet 80 mg PO BEDTIME 05/30/20 04/21/22 06/21/22 History calcium carbonate 500 mg-vitamin 1 tab PO DAILY 05/30/20 04/21/22 06/21/22 History D3 5 mcg (200 unit) tablet (Calcium 500 + D) levothyroxine 112 mcg tablet 112 mcg PO MOTUWETHFRSA 10/20/20 06/22/22 06/22/22 History omeprazole 20 mg capsule,delayed 20 mg PO DAILY 10/20/20 04/21/22 06/22/22 History release acetaminophen 325 mg tablet 650 mg PO Q6H PRN Pain 04/21/22 04/21/22 06/21/22 History Exam Airway Mallampati Class: II TM Dist: >3cm Neck ROM: Full Loose/Missing/Broken Teeth: Yes (Poor dentition overall ) Heart: S1,S2 Lungs: b/l breath sounds Assessment and Plan Assessment Anesthesia Assessment: Anesthesia Plan Discussed Final Anesthetic Review NPO: Yes ASA Class: III Final Preanesthetic Review: Meds/Allgs Chart Reviewed, Consent Obtained/Reviewed and Anes Risks/Benef Reviewed Patient Risk: High Procedure Risk: Intermediate Anesthetic Plan Anesthetic Plan: GA Disposition: Inp. Admit - Standard Bed
[2022-06-22] VITALS (17 sets, daily range): BP systolic 97–159; BP diastolic 58–96; PULSE 58–82; RESP 16–18; TEMP 36.2–36.8; O2SAT 96–100; BMI 30.6
--- NOTE | ~2022-06-22 | XR_ITS ---
EXAMINATION: XR KNEE, RIGHT CLINICAL INFORMATION: Right knee replacement COMPARISON: Previous x-ray 06/17/2022 TECHNIQUE: 2 views of the right knee. FINDINGS: There is a new 3 component right knee replacement in satisfactory position. No fracture or dislocation. Postoperative changes to the soft tissues. XR/XR knee RT 2V IMPRESSION: Satisfactory appearance of right knee replacement.
[2022-06-22 06:35] LABS: COVID-19 Test Negative (Negative); IDNOW Serial# BCCEAD1C
[2022-06-22 06:37] LABS: Hematocrit 41.4 % (37.0-47.0); Hemoglobin 13.4 g/dl (12.0-16.0)
[2022-06-22] MEDS: vancomycin HCL 1,500 MG in 0.9 % Sodium Chloride 500 ML 333.33 MG IV ×2 (07:00→19:13)
[2022-06-22] MEDS: Lactated Ringers 1,000 ML 100 ML IVCONT ×2 (07:04→09:58)
--- NOTE | 2022-06-22 07:33 | MHC.SHP ---
Pre-Procedural Eval Section A Date of Service: 06/22/22 The patient is an INPATIENT: No Changes since office visit: No Cold of Flu in the past 2 weeks, No New Medical Problems, No Changes in Medication and No Patient answered all questions The History & Physical has been completed within 30 days and I have reviewed it.: Yes Section B Chief Complaint: Rheumatoid arthritis, unspecified Allergies: Allergies Allergy/AdvReac Type Severity Reaction Status Date / Time No Known Allergies Allergy Verified 06/03/22 12:01 [No Known Allergies*] Plan I have reviewed the history and physical and performed a pertinent physical examination on my patient. No changes have occurred unless specified. Time Spent With Patient Time: Total time managing care of this patient today ____ minutes.
--- NOTE | 2022-06-22 09:24 | P.OP_ITS ---
Operative Note Operative Note Date of Service: 06/22/22 Narrative: Date of Service: 06/22/22 Pre-op diagnosis: Right knee OA Post-op diagnosis: same Procedure: Right TKA Implants: [place] [employer] posterior stabilized press fit Surgeon: Mahamed Byren MD Anesthesia: GETA and regional Was an [employer] Consultant used for this Procedure?: Yes [employer] Consultant: Ekaterina Walker Estimated blood loss (mL): 200 IV fluids (mL): 1,000 Pathology: other Condition: stable Disposition: PACU Procedure in detail: The patient was brought to the operating room and prepped and draped in standard sterile fashion. A time-out was called to identify proper site proper procedure proper surgeon and IV antibiotics were administered. I began by making a midline incision to the retinaculum and performed a medial parapatellar arthrotomy. The patella was translated laterally and the knee was flexed up. There was tricompartmental desease affecting the lateral compartment most severely. I performed a small medial peel and resected the infrapatellar fat pad. Aguila's line was then used to drill my intramedullary femoral guide and my distal femur cut of 10 mm was made in 5 degrees of valgus while protecting the soft tissues. There was abundant synovitic tissue c/w RA. This was removed and a werewolf device was used to maintain hemostasis.I then measured a #3 femur and placed my cutting guide and made my anterior posterior and chamfer cuts protecting the soft tissues at all times. I then made my box but removing the PCL. Once I was satisfied with my cuts I turned my attention to the tibia. I removed the meniscus medially and laterally and , using an external cutting guide, in line with the tibial crest and the third ray, I made my distal tibial cut in 0 deg slope of while protecting the posterior soft tissues at all times. An extension block was used to confirm appropriate amount of bony resection. I then sized a #4 tibia and once I was satisfied that there was complete tibial coverage I placed my trial and with the trial femur in place took the knee through range of motion. I was satisfied with the extension and flexion as well as the stability at 0, 30 and 90 degrees. I then turned my attention to the patella where I removed 1 cm from the undersurface of the patella and then trialed a 29a patellar button. Again the knee was taken through range of motion I was satisfied with the tracking. I then returned to the femur and drilled my femoral lug holes and prepared the tibia. A femoral bone plug was placed and the knee was irrigated copiously. I then press fit the patella, tibia and femur in standard fashion. I trialed different inserts until I selected a #9mm insert. The final insert was placed and a 3 minutes iodine soak was performed. The knee was then closed with a running Quill suture, a 3 0 Vicryl and almaz on the skin. Patient was then placed in sterile dressing and brought to recovery room in stable condition there were no known complications.
[2022-06-22] MEDS: Acetaminophen 1,000 MG/100 ML PIGGYBACK 400 MG IV (10:08)
--- NOTE | 2022-06-22 10:37 | PHA.MEDREC ---
Pharmacy Consult ? Medication Reconciliation Pharmacy has reviewed the medication reconciliation completed by nursing. Lizzeth Torres, SabrinaD
[2022-06-22] MEDS: oxyCODONE HCl Immed Release 5 MG TABLET PO (12:05)
--- NOTE | 2022-06-22 15:22 | P.CONIM_ITS ---
History of Present Illness Data of Consult Service Date: 06/22/22 Primary Care Provider: Aaron Rob MD [facility] Reason for consult: right knee pain 67F pmh RA, chronic diastolic chf, CAD, HTN, hypothyroid admitted for elective right TKA. patient is feeling well postop, denies chest pain, sob, fever, chills. Review of Systems Review of Systems: Yes all other systems are reviewed and are negative [facility] Medical History Atherosclerotic cardiovascular disease Coronary arteriosclerosis Essential hypertension Hx of thyroid cancer Non-rheumatic mitral regurgitation Personal history of COVID-19 Seropositive rheumatoid arthritis Family History Mother HTN (hypertension) Surgical History History of back surgery History of thyroid surgery Hx of bilateral cataract extraction Hx of colonoscopy Status post coronary artery bypass graft Social History Are you a primary memory care program director to a significant other at home: No Do you presently have visiting nurse or other home services: No Alcohol intake: current Alcohol intake frequency: holidays/special occasions only Alcohol type: wine Patient Tobacco Use Status: Former Tobacco user Quit Date: Tobacco use type: Cigarette Cigarettes Per Day: 3 Years Smoked: 10 Use of substances other than those prescribed or required for medical reasons: No Have you been hit, kicked, punched, or otherwise hurt by someone within the past year? If so, by whom?: No Spiritual Healthcare Practices: no Rastafarian Healthcare Practices: no Cultural Healthcare Practices: no Are you DNR?: No Advance Directives: No Advance Directives Information Provided: Yes Advance Directives on File: No Recently lost weight without trying: No Nutrition Risks: No Nutritional Risk Meds Allergies Allergy/AdvReac Type Severity Reaction Status Date / Time No Known Allergies Allergy Verified 06/03/22 12:01 [No Known Allergies*] Active Medications: Current Medications Acetaminophen (Acetaminophen 325 Mg Tablet) 650 mg PO Q6H PRN PRN Reason: Pain, Mild (Pain Scale 1-3) Atorvastatin Calcium (Atorvastatin Calcium 80 Mg Tablet) 80 mg PO BEDTIME [facility] Calcium Carbonate/Cholecalciferol (Calcium + Vitamin D 250 Mg Tablet) 500 mg PO DAILY [facility] Celecoxib (Celecoxib 200 Mg Capsule) 200 mg PO BID [facility] Docusate Sodium (Docusate Sodium 100 Mg Capsule) 100 mg PO BID [facility] Fentanyl (Fentanyl Citrate/Pf 100 Mcg/2 Ml Vial) 25 mcg IVPUSH Q5M PRN; Protocol PRN Reason: Pain, Moderate (Pain Scale 4-6 Hydromorphone HCl (Hydromorphone Hcl 0.5 Mg/0.5 Ml Syringe) 0.25 mg IVPUSH Q5M PRN; Protocol PRN Reason: Pain, Severe (Pain Scale 7-10) Hydromorphone HCl (Hydromorphone Hcl 0.5 Mg/0.5 Ml Syringe) 0.25 mg IVPUSH Q4H PRN; Protocol PRN Reason: Pain, Severe (Pain Scale 7-10) Promethazine HCl 6.25 mg/ (Sodium Chloride) 50.25 mls @ 201 mls/hr IV ONCE PRN PRN Reason: Nausea and Vomiting Vancomycin HCl 1,500 mg/ (Sodium Chloride) 500 mls @ 333.333 mls/hr IV POSTOP ONE Stop: 06/22/22 21:29 Levothyroxine Sodium (Levothyroxine Sodium 112 Mcg Tablet) 112 mcg PO MoTuWeThFrSa@0600 [facility] Metoprolol Tartrate (Metoprolol Tartrate 50 Mg Tablet) 50 mg PO BID [facility]; Protocol Omeprazole (Omeprazole 20 Mg Capsule.Dr) 20 mg PO DAILY@0630 [facility] Oxycodone HCl (Oxycodone Hcl Immed Release 5 Mg Tablet) 10 mg PO Q4H PRN PRN Reason: Pain, Moderate (Pain Scale 4-6 Oxycodone HCl (Oxycodone Hcl Er 10 Mg Tab.Er.12h) 10 mg PO BID [facility] Pharmacy Consult (Consult Rx Vancomycin Dosing) 1 each MISCELLANE DAILY PRN PRN Reason: Consult order Pharmacy Consult (Consult Rx Vancomycin Dosing) 1 each MISCELLANE DAILY PRN PRN Reason: Consult order Sodium Chloride (0.9 % Sodium Chloride Flush 3 Ml Syringe) 3 ml IVFLUSH QSHIFT [facility] Home Medications Medication Instructions Recorded Confirmed Last Taken Type aspirin 81 mg tablet,delayed 81 mg PO DAILY 05/30/20 04/21/22 06/15/22 History release (Adult Low Dose Aspirin) atorvastatin 80 mg tablet 80 mg PO BEDTIME 05/30/20 04/21/22 06/21/22 History calcium carbonate 500 mg-vitamin 1 tab PO DAILY 05/30/20 04/21/22 06/21/22 History D3 5 mcg (200 unit) tablet (Calcium 500 + D) levothyroxine 112 mcg tablet 112 mcg PO MOTUWETHFRSA 10/20/20 06/22/22 06/22/22 History omeprazole 20 mg capsule,delayed 20 mg PO DAILY 10/20/20 04/21/22 06/22/22 History release acetaminophen 325 mg tablet 650 mg PO Q6H PRN Pain 04/21/22 04/21/22 06/21/22 History Physical Exam Vital Signs and Narrative: Vital Signs: Last Vital Signs Temp 97.1 F 06/22/22 14:02 Pulse 79 06/22/22 14:02 Resp 16 06/22/22 14:02 BP 137/78 06/22/22 14:02 Pulse Ox 100 06/22/22 14:02 O2 Del Method 06/22/22 14:02 O2 Flow Rate 6 06/22/22 09:51 BMI result Body Mass Index 30.6 General: AO X 3, no acute distress Resp: CTA bilateral, no accessory muscles used CVS: S1,S2,RRR GI: soft, non tender, non distended Neuro: motor grossly intact, alert Psych: appropriate affect, appropriate insight Results Labs CBC and Chem 7: 06/22/22 06:25 Labs: Laboratory Results - last 24 hr 06/22/22 06:05 COVID-19 (NAHED) Negative COVID-19 Clin Com See Note Imaging Radiologist's Impressions: Impressions Knee X-Ray 06/22/22 10:11 IMPRESSION: Satisfactory appearance of right knee replacement. Assessment and Plan (1) snf 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: Status: Acute Plan 67F pmh RA, chronic diastolic chf, CAD, HTN, hypothyroid admitted for elective right TKA CAD statin, restart asa when okay from surgical standpoint chronic diastolic chf holding lasix for now, monitor fluid status RA hold enbrel post op hypothyroid synthroid HTN metoprolol Time Spent With Patient Time: Total time managing care of this patient today ____ minutes.
--- NOTE | 2022-06-22 15:30 | PC.NURSE ---
Pt arrived to the unit via stretcher. Pt is A/O X 4, in no apparent respiratory distress, lung sounds are clear to auscultation, positive bowel sound, positive CMS and pedal pulse. Denied pain, SOB, dizziness, lightheadedness, no nausea/ vomiting. Pt straight cat for 400 cc post opt, pt has not self voided at this time. Sequential and incentive spirometer provided. Patient resting comfortably, family at bedside, aware of plan of care.
[2022-06-22] MEDS: 0.9 % Sodium Chloride Flush 3 ML SYRINGE IVFLUSH ×2 (16:03→19:13)
[2022-06-22] MEDS: oxyCODONE HCl Immed Release 5 MG TABLET 10 MG PO (16:57)
[2022-06-22] MEDS: Celecoxib 200 MG CAPSULE PO (20:55)
[2022-06-22] MEDS: Atorvastatin Calcium 80 MG TABLET PO (20:55)
[2022-06-22] MEDS: Metoprolol Tartrate 50 MG TABLET PO (20:56)
[2022-06-22] MEDS: oxyCODONE HCl ER 10 MG TAB.ER.12H PO (20:56)
[2022-06-22] MEDS: Docusate Sodium 100 MG CAPSULE PO (20:56)
[2022-06-23] MEDS: HYDROmorphone HCl 0.5 MG/0.5 ML SYRINGE 0.25 MG IVPUSH (00:59)
[2022-06-23 03:26] VITALS: BP 127/60; PULSE 69; RESP 18; TEMP 36.3; O2SAT 96
[2022-06-23] MEDS: Levothyroxine Sodium 112 MCG TABLET PO (05:23)
[2022-06-23] MEDS: Omeprazole 20 MG CAPSULE.DR PO (05:24)
[2022-06-23 06:48] LABS: MANUAL DIFF FLAG NO
[2022-06-23 06:53] LABS: Basophils Percent Auto 0.3 % (0-2); Hematocrit 28.8 % (37.0-47.0); Hemoglobin 9.2 g/dl (12.0-16.0); Imm Gran Abs Auto 0.03 X10*3/uL (0.00-0.03); Imm Gran Pct Auto 0.4 % (0.0-0.4); Lymphocytes Absolute Auto 1.7 X10*3/uL (1.2-4.9); Mean Corpuscular HGB Conc 31.9 g/dl (31.0-35.0); Mean Corpuscular Hemoglobin 26.1 pg (27.0-33.0); Mean Corpuscular Volume 81.8 fL (80.0-98.0); Mean Platelet Volume 10.5 fL (9.4-12.3); Monocytes Absolute Auto 1.1 X10*3/uL (0.1-1.2); Monocytes Percent Auto 13.9 % (2-11); Neutrophils Absolute Auto 5.1 x10*3/uL (2.0-8.3); Neutrophils Percent Auto 64.4 % (45-73); Platelet Count 220 X10*3/uL (160-400); Red Blood Count 3.52 X10*6/uL (4.20-5.50); Red Cell Distribution Width 15.7 % (11.0-16.0); White Blood Count 7.9 X10*3/uL (4.8-10.8)
[2022-06-23 07:09] VITALS: BP 131/60; PULSE 67; RESP 18; TEMP 36.1; O2SAT 97
[2022-06-23 07:11] LABS: Anion Gap 11 (12-20); Blood Urea Nitrogen 18 mg/dL (9-16); Calcium 8.5 mg/dL (8.4-10.2); Carbon Dioxide 26 mmol/L (22-29); Chloride 107 mmol/L (96-108); Creatinine Clr Calc Pharmacy 97.6; Estimated Glomerular Filt Rate > 60; Glucose Fasting 124 mg/dL (60-99); Potassium 4.9 mmol/L (3.3-5.1); Sodium 139 mmol/L (135-145)
--- NOTE | 2022-06-23 07:18 | PM.PNORT ---
Subjective Subjective Date of Service: 06/23/22 Interval history: POD1 s/p RTKA. Patient is resting in bed comfortably. No overnight events. Pain is well managed. No additional complaints. Physical Exam Vital Signs: Vital Signs: Last Vital Signs Temp 97 F 06/23/22 07:09 Pulse 67 06/23/22 07:09 Resp 18 06/23/22 07:09 BP 131/60 06/23/22 07:09 Pulse Ox 97 06/23/22 07:09 O2 Del Method 06/23/22 07:09 O2 Flow Rate 6 06/22/22 09:51 BMI result Body Mass Index 30.6 Const: General: cooperative, healthy appearing and no acute distress Resp: Effort & Inspection: normal respiratory effort and able to speak in complete sentences Cardio: Rate: regular rate Peripheral pulses: Peripheral pulses 2+ throughout GI: Palpation (GI): Soft to palpation Skin: Lesions: no lesions Rashes: no rashes Extrem: Other: Right knee Aquacel is c/d/i. Able to dorsiflex and plantarflex. Sensation intact. Pedal pulse intact. Procedures Date of Service Date of Service: 06/23/22 Progress Note: A&P Assessment and plan (1) Status post total knee replacement, right: Status: Acute Assessment and Plan: Continue pain mgmnt No bend in the bed at the knee - Keep straight Begin Lovenox for dvt ppx begin PT for RTKA- WBAT Dispo planning-Pending PT eval, pain mgmnt Time Spent With Patient Time: Total time managing care of this patient today ____ minutes. Quality Stroke Does the patient have a stroke diagnosis?: No VTE Prior VTE?: No VTE Risk Level:: Medical - moderate - high VTE Device Contraindication: N/A - Device Ordered VTE Drug Contraindication: N/A - Med Ordered
--- NOTE | 2022-06-23 08:27 | HO.PM.IMPN ---
Subjective Subjective Date of Service: 06/23/22 Review of Systems f/u for med consult interval history; no new issues Physical Exam Vital Signs: Vital Signs: Last Vital Signs Temp 97 F 06/23/22 07:09 Pulse 67 06/23/22 07:09 Resp 18 06/23/22 07:09 BP 131/60 06/23/22 07:09 Pulse Ox 97 06/23/22 07:09 O2 Del Method 06/23/22 07:09 O2 Flow Rate 6 06/22/22 09:51 BMI result Body Mass Index 30.6 Const: Other: General: AO X 3, no acute distress Resp: CTA bilateral CVS: S1,S2,RRR GI: +BS, NT, no distention Skin: No rash Neuro: motor grossly intact Psych: appropriate affect Extrem: Other: Right knee Aquacel is c/d/i. Able to dorsiflex and plantarflex. Sensation intact. Pedal pulse intact. Objective Data Active Medications Acetaminophen (Acetaminophen 325 Mg Tablet) 650 mg PO Q6H PRN PRN Reason: Pain, Mild (Pain Scale 1-3) Atorvastatin Calcium (Atorvastatin Calcium 80 Mg Tablet) 80 mg PO BEDTIME [facility] Last Admin: 06/22/22 20:55 Dose: 80 mg Documented By: RICHARD Calcium Carbonate/Cholecalciferol (Calcium + Vitamin D 250 Mg Tablet) 500 mg PO DAILY [facility] Celecoxib (Celecoxib 200 Mg Capsule) 200 mg PO BID [facility] Last Admin: 06/22/22 20:55 Dose: 200 mg Documented By: RICHARD Docusate Sodium (Docusate Sodium 100 Mg Capsule) 100 mg PO BID [facility] Last Admin: 06/22/22 20:56 Dose: 100 mg Documented By: RICHARD Enoxaparin Sodium (Enoxaparin Sodium 40 Mg/0.4 Ml Syringe) 40 mg SUBCUT Q24H [facility] Fentanyl (Fentanyl Citrate/Pf 100 Mcg/2 Ml Vial) 25 mcg IVPUSH Q5M PRN; Protocol PRN Reason: Pain, Moderate (Pain Scale 4-6 Hydromorphone HCl (Hydromorphone Hcl 0.5 Mg/0.5 Ml Syringe) 0.25 mg IVPUSH Q5M PRN; Protocol PRN Reason: Pain, Severe (Pain Scale 7-10) Hydromorphone HCl (Hydromorphone Hcl 0.5 Mg/0.5 Ml Syringe) 0.25 mg IVPUSH Q4H PRN; Protocol PRN Reason: Pain, Severe (Pain Scale 7-10) Last Admin: 06/23/22 00:59 Dose: 0.25 mg Documented By: RICHARD Promethazine HCl 6.25 mg/ (Sodium Chloride) 50.25 mls @ 201 mls/hr IV ONCE PRN PRN Reason: Nausea and Vomiting Levothyroxine Sodium (Levothyroxine Sodium 112 Mcg Tablet) 112 mcg PO MoTuWeThFrSa@0600 [facility] Last Admin: 06/23/22 05:23 Dose: 112 mcg Documented By: RICHARD Metoprolol Tartrate (Metoprolol Tartrate 50 Mg Tablet) 50 mg PO BID [facility]; Protocol Last Admin: 06/22/22 20:56 Dose: 50 mg Documented By: RICHARD Omeprazole (Omeprazole 20 Mg Capsule.Dr) 20 mg PO DAILY@0630 [facility] Last Admin: 06/23/22 05:24 Dose: 20 mg Documented By: RICHARD Oxycodone HCl (Oxycodone Hcl Immed Release 5 Mg Tablet) 10 mg PO Q4H PRN PRN Reason: Pain, Moderate (Pain Scale 4-6 Last Admin: 06/22/22 16:57 Dose: 10 mg Documented By: RICHARD Oxycodone HCl (Oxycodone Hcl Er 10 Mg Tab.Er.12h) 10 mg PO BID [facility] Last Admin: 06/22/22 20:56 Dose: 10 mg Documented By: RICHARD Pharmacy Consult (Consult Rx Vancomycin Dosing) 1 each MISCELLANE DAILY PRN PRN Reason: Consult order Pharmacy Consult (Consult Rx Vancomycin Dosing) 1 each MISCELLANE DAILY PRN PRN Reason: Consult order Sodium Chloride (0.9 % Sodium Chloride Flush 3 Ml Syringe) 3 ml IVFLUSH QSHIFT [facility] Last Admin: 06/22/22 19:13 Dose: 3 ml Documented By: RICHARD Labs CBC & Chem 7: 06/23/22 05:48 06/23/22 05:48 Labs: Laboratory Results - last 24 hr 06/23/22 06/23/22 05:48 05:48 MCV 81.8 MCH 26.1 L MCHC 31.9 RDW 15.7 Plt Count 220 D MPV 10.5 Immature Gran % (Auto) 0.4 Neut % (Auto) 64.4 Lymph % (Auto) 21.0 [place] % (Auto) 13.9 H Eos % (Auto) 0.0 Baso % (Auto) 0.3 Lymph # (Auto) 1.7 [place] # (Auto) 1.1 Eos # (Auto) 0.0 Baso # (Auto) 0.0 Abs Immat Gran (auto) 0.03 Absolute Neuts (auto) 5.1 Absolute Nucleated RBC 0.000 Nucleated RBC % (auto) 0.0 Anion Gap 11 L Estim Creat Clear Calc 97.6 Estimated GFR > 60 Fasting Glucose 124 H Calcium 8.5 Assessment and Plan (1) Status post total knee replacement, right: Status: Acute Plan 67F pmh RA, chronic diastolic chf, CAD, HTN, hypothyroid admitted for elective right TKA CAD statin, restart asa when okay from surgical standpoint chronic diastolic chf can resume lasix RA hold enbrel post op hypothyroid synthroid HTN metoprolol medically ok for dc, will sign off Time Spent With Patient Time: Total time managing care of this patient today ____ minutes. Quality Stroke Does the patient have a stroke diagnosis?: No VTE Prior VTE?: No VTE Risk Level:: Medical - moderate - high VTE Device Contraindication: N/A - Device Ordered VTE Drug Contraindication: N/A - Med Ordered
[2022-06-23] MEDS: oxyCODONE HCl Immed Release 5 MG TABLET 10 MG PO ×2 (08:54→15:22)
[2022-06-23] MEDS: Celecoxib 200 MG CAPSULE PO ×2 (08:55→21:16)
[2022-06-23] MEDS: oxyCODONE HCl ER 10 MG TAB.ER.12H PO ×2 (08:55→21:16)
[2022-06-23] MEDS: Enoxaparin Sodium 40 MG/0.4 ML SYRINGE SUBCUT (08:55)
[2022-06-23] MEDS: Docusate Sodium 100 MG CAPSULE PO ×2 (08:55→21:16)
[2022-06-23] MEDS: Metoprolol Tartrate 50 MG TABLET PO ×2 (08:55→21:15)
[2022-06-23] MEDS: Calcium + Vitamin D 250 MG TABLET 500 MG PO (08:55)
[2022-06-23] MEDS: 0.9 % Sodium Chloride Flush 3 ML SYRINGE IVFLUSH ×3 (09:42→21:18)
--- NOTE | 2022-06-23 11:07 | HO.POSTANES ---
Post Anesthesia Evaluation Post Anesthesia Evaluation Vital Signs: Vital Signs Temp Pulse Resp BP Pulse Ox O2 Del Method 06/23/22 07:09 97 F 67 18 131/60 97 Room Air 06/23/22 03:26 97.4 F 69 18 127/60 96 Room Air 06/22/22 23:21 98.0 F 80 18 147/67 H 96 Room Air Anesthesia: General Endotracheal-GETA Mental Status: Awake Pain Control: Satisfactory Nausea/Vomiting: None (A) Hydration: Adequate Anesthesia-Related Issues: No Anes. Related Issues
[2022-06-23 14:42] VITALS: BP 131/60; PULSE 67; O2SAT 97
[2022-06-23 15:16] VITALS: BP 120/63; PULSE 97; RESP 18; TEMP 37.1; O2SAT 96
[2022-06-23 19:31] VITALS: BP 125/58; PULSE 73; RESP 18; TEMP 37.2; O2SAT 95
[2022-06-23] MEDS: Atorvastatin Calcium 80 MG TABLET PO (21:15)
[2022-06-23 23:11] VITALS: BP 139/59; PULSE 81; RESP 18; TEMP 37.1; O2SAT 94
[2022-06-24] VITALS (11 sets, daily range): BP systolic 119–129; BP diastolic 56–76; PULSE 59–70; RESP 16–18; TEMP 36.7–37; O2SAT 94–97
[2022-06-24] MEDS: HYDROmorphone HCl 0.5 MG/0.5 ML SYRINGE 0.25 MG IVPUSH ×2 (02:03→08:02)
[2022-06-24] MEDS: Omeprazole 20 MG CAPSULE.DR PO (05:38)
[2022-06-24] MEDS: Levothyroxine Sodium 112 MCG TABLET PO (05:38)
[2022-06-24 05:49] LABS: MANUAL DIFF FLAG NO
[2022-06-24 05:52] LABS: Basophils Percent Auto 0.5 % (0-2); Eosinophils Absolute Auto 0.1 X10*3/uL (0.0-0.4); Eosinophils Percent Auto 1.1 % (0-4); Hemoglobin 7.6 g/dl (12.0-16.0); Imm Gran Abs Auto 0.01 X10*3/uL (0.00-0.03); Imm Gran Pct Auto 0.1 % (0.0-0.4); Lymphocytes Absolute Auto 2.8 X10*3/uL (1.2-4.9); Mean Corpuscular Hemoglobin 27.1 pg (27.0-33.0); Mean Corpuscular Volume 82.1 fL (80.0-98.0); Mean Platelet Volume 10.3 fL (9.4-12.3); Monocytes Absolute Auto 1.2 X10*3/uL (0.1-1.2); Neutrophils Absolute Auto 4.2 x10*3/uL (2.0-8.3); Neutrophils Percent Auto 50.3 % (45-73); Platelet Count 169 X10*3/uL (160-400); Red Cell Distribution Width 15.8 % (11.0-16.0); White Blood Count 8.3 X10*3/uL (4.8-10.8)
[2022-06-24 06:28] LABS: Anion Gap 9 (12-20); Blood Urea Nitrogen 20 mg/dL (9-16); Calcium 7.9 mg/dL (8.4-10.2); Carbon Dioxide 26 mmol/L (22-29); Chloride 108 mmol/L (96-108); Creatinine Clr Calc Pharmacy 95.9; Estimated Glomerular Filt Rate > 60; Glucose Fasting 125 mg/dL (60-99); Potassium 4.4 mmol/L (3.3-5.1); Sodium 139 mmol/L (135-145)
[2022-06-24] MEDS: Docusate Sodium 100 MG CAPSULE PO (08:01)
[2022-06-24] MEDS: Metoprolol Tartrate 50 MG TABLET PO (08:01)
[2022-06-24] MEDS: Celecoxib 200 MG CAPSULE PO (08:01)
[2022-06-24] MEDS: Calcium + Vitamin D 250 MG TABLET 500 MG PO (08:01)
[2022-06-24] MEDS: Enoxaparin Sodium 40 MG/0.4 ML SYRINGE SUBCUT (08:01)
[2022-06-24] MEDS: 0.9 % Sodium Chloride Flush 3 ML SYRINGE IVFLUSH (08:02)
--- NOTE | 2022-06-24 08:16 | P.DS_ITS ---
DS: Providers Provider Date of Service: 06/24/22 Primary care physician: Aaron Rob MD Consults: 06/22/22 15:00 Consult to Hospitalist Routine Consulting Provider: Hospitalist Reason For Exam: routine medical management DS: Diagnosis Discharge Diagnosis (1) Status post total knee replacement, right: Status: Acute DS: Summary Hospital Course Hospital Course: The patient underwent a successful right total knee arthroplasty, they were canela sferred to PACU and then to the floor to recover. During their stay, their vitals were stable, afebrile at 98.2. POD2 H/H dropped to 7.6/23.0 and patient was transfused 2 units pRBCs. POD 1 they were started on Lovenox injections for DVT ppx, they also received Physical Therapy services twice a day. Prior to discharge, their dressing was changed, incision clean dry and intact, new Aquacel dressing applied and the plan was to be discharged home with VNA services. Time Spent with Patient Time attestation: Total time managing care of this patient today ____ minutes. Discharge coordination time: Less than 30 minutes Quality: Safe Use of Opioids Does Pt have an Active Cancer Diagnosis on the Problem List?: No Quality: Stroke Does the patient have a stroke diagnosis?: No Physical Exam Vital Signs: Vital Signs: Last Vital Signs Temp 98.4 F 06/24/22 07:32 Pulse 65 06/24/22 07:32 Resp 17 06/24/22 07:32 BP 120/76 06/24/22 07:32 Pulse Ox 97 06/24/22 07:32 O2 Del Method 06/24/22 07:32 O2 Flow Rate 6 06/22/22 09:51 BMI result Body Mass Index 30.6 Const: General: cooperative, healthy appearing and no acute distress Resp: Effort & Inspection: normal respiratory effort and able to speak in complete sentences Cardio: Rate: regular rate Peripheral pulses: Peripheral pulses 2+ throughout GI: Palpation (GI): Soft to palpation Skin: Lesions: no lesions Rashes: no rashes Extrem: Other: Right knee incision site is c/d/i. Ves[place] intact. Moderate edema. Edema on he dorsal aspect of the foot. Calf is supple and nontender. Able to dorsiflex and plantarflex. Sensation intact. Pedal pulse intact. DS: Data Data Completed and Pending Completed studies during hospitalization [Text1]: Pending at discharge 06/22/22 09:06 Surgical [PTH] Routine Labs on day of discharge: Laboratory Results - last 24 hr 06/24/22 06/24/22 05:20 05:20 WBC 8.3 RBC 2.80 L D Hgb 7.6 L Hct 23.0 L D MCV 82.1 MCH 27.1 MCHC 33.0 RDW 15.8 Plt Count 169 MPV 10.3 Immature Gran % (Auto) 0.1 Neut % (Auto) 50.3 Lymph % (Auto) 34.0 [place] % (Auto) 14.0 H Eos % (Auto) 1.1 Baso % (Auto) 0.5 Lymph # (Auto) 2.8 [place] # (Auto) 1.2 Eos # (Auto) 0.1 Baso # (Auto) 0.0 Abs Immat Gran (auto) 0.01 Absolute Neuts (auto) 4.2 Absolute Nucleated RBC 0.000 Nucleated RBC % (auto) 0.0 Sodium 139 Potassium 4.4 Chloride 108 Carbon Dioxide 26 Anion Gap 9 L BUN 20 H Creatinine 0.58 Estim Creat Clear Calc 95.9 Estimated GFR > 60 Fasting Glucose 125 H Calcium 7.9 L D Discharge Plan Discharge Patient Disposition: Home, Self-Care Referrals: Deion Mayo PA-C [Physician Compensation Manager] - 07/08/22 1:00 pm Discharge Medications: New acetaminophen 325 mg Tablet 650 mg PO Q6H PRN (Reason: Pain, Mild (Pain Scale 1-3)) 30 Days Qty: 240 0RF enoxaparin 40 mg/0.4 mL Syringe 40 mg subcut Q24H 42 Days Qty: 16.8 0RF celecoxib 200 mg Capsule 200 mg PO BID 30 Days Qty: 60 0RF oxycodone 5 mg Tablet 10 mg PO Q4H PRN (Reason: Pain, Moderate (Pain Scale 4-6) 7 Days Qty: 42 0RF Rx Instructions: Partial Fill upon patient request. Continued metoprolol tartrate 50 mg tablet 50 mg PO BID Qty: 180 3RF Enbrel SureClick 50 mg/mL (1 mL) pen injector 50 mg subcut QWEEK Qty: 4 1RF calcium carbonate-vitamin D3 [Calcium 500 + D] 500 mg(1,250mg) -200 unit tablet 1 tab PO DAILY atorvastatin 80 mg tablet 80 mg PO BEDTIME levothyroxine 112 mcg tablet 112 mcg PO MOTUWETHFRSA omeprazole 20 mg capsule,delayed release(DR/EC) 20 mg PO DAILY furosemide [Lasix] 20 mg tablet 20 mg PO DAILY Qty: 90 4RF Discontinued acetaminophen 325 mg Tablet 650 mg PO Q6H PRN (Reason: Pain) aspirin [Adult Low Dose Aspirin] 81 mg tablet,delayed release (DR/EC) 81 mg PO DAILY Discharge Orders: Discharge Order (Routine); Ordered 06/24/22 Ordered By: Ekaterina Walker Diet: Regular diet Activity on Discharge: Use cane or walker Activity Restrictions/Additional Instructions: Physical Therapy for ROM 0-120, quad strength, gait training. Use walker for ambulation Limit stair climbing, No shower, No tub bath, No driving Continue anticoagulant Keep Aquacel dressing clean, dry and intact. Follow up with orthopedics in 2 weeks
--- NOTE | 2022-06-24 08:20 | W.MHC.F2F ---
Service Date Service Date: 06/24/22 Encounter Date of encounter: 06/24/22 Reasons for Services Signs and symptoms assessed: s/p RTKA. Pt. is considered homebound due to recent surgery. Unable to drive, poor balance, poor gait mechanics. Reason for physical therapy: home safety and mobility, therapeutic exercises, restore joint function, gait/transfer training, assess need for DME and ADL training Homebound: Leaving the home is medically contraindicated at this time without the asist of a device and/or another person due th the listed conditions above and below. Reason homebound: unsteady gait / fall risk, leg weakness, pain with ambulation, pain with transfers, poor balance / fall risk and unable to drive Homebound supporting statement: Pt. is considered homebound due to recent surgery. Unable to drive, poor balance, poor gait mechanics. Certification: Based on the above findings, I certify that this patient is confined to the home and needs intermittent long-term care, physical therapy and/or speech therapy, or continues to need occupational therapy. The patient is under my care, and I have initiated the establishment of the plan of care. The patient will be followed by a physician who will periodically review the plan of care. Time Spent With Patient Time: Total time managing care of this patient today ____ minutes.
[2022-06-24] MEDS: oxyCODONE HCl ER 10 MG TAB.ER.12H PO (09:24)
[2022-06-24] MEDS: oxyCODONE HCl Immed Release 5 MG TABLET 10 MG PO (15:24)
--- NOTE | 2022-06-24 15:41 | MHC.CM.PN ---
THIS RAG BOILER MADE MOJICA THAT PLAN IS NOT HOME - SELFCARE ANDTHAT IT IS HOME WITH [facility]. [facility] IS ASKING FOR AN AMENDED F2F. TIGER MESSAGES SENT TO BOTH ORTHO PA. BOTH ARE NOT AVAILABLE. TIGER SENT TO ORTHO SURGEON
== END 2022-06-24 17:10 | disposition home health service (06) ==
LOC: HO.SSS 05:54 → HO.S3 13:52
PROVIDERS: Anesthesiology; Physician Assistant; PCP Internal Medicine; Visit Provider Orthopaedic Surgery
PROC: (CPT 27447; principal; 2022-06-22 07:30)
DX: M05.9 Rheumatoid arthritis with rheumatoid factor, unspecified (principal); M17.11 Unilateral primary osteoarthritis, right knee; M25.561 Pain in right knee; I11.0 Hypertensive heart disease with heart failure; I50.32 Chronic diastolic (congestive) heart failure; I34.0 Nonrheumatic mitral (valve) insufficiency; I25.10 Atherosclerotic heart disease of native coronary artery without angina pectoris; Z95.1 Presence of aortocoronary bypass graft; E03.9 Hypothyroidism, unspecified; Z85.850 Personal history of malignant neoplasm of thyroid; Z79.82 Long term (current) use of aspirin; Z79.899 Other long term (current) drug therapy; Z87.891 Personal history of nicotine dependence; Z86.16 Personal history of COVID-19
CPT/HCPCS: 27447; 36415; 73560; 80048; 85014; 85018; 85025; 86850; 86900; 86901; 86923; 87635; 87640; 87641; 88305; 88311; 97110; 97116; 97161; C1776; J0131; J1100; J1170; J1650; J2250; J2405; J2795; J3010; J3370; P9016

== ENCOUNTER → 2022-07-08 12:49 | Outpatient (BNVA) | payer MEDICARE, MEDICAID, SELFPAY | PROVIDERS: PCP Internal Medicine; Visit Provider Physician Assistant | DX: Z13.89 Encounter for screening for other disorder (principal) | CPT/HCPCS: 99212 ==

== ENCOUNTER 2022-08-05 12:28 | Outpatient (REF) | payer MEDICARE, MEDICAID, SELFPAY ==
--- NOTE | ~2022-08-05 | XR_ITS ---
EXAMINATION: KNEE X-RAY CLINICAL INFORMATION: Pain COMPARISON: Previous x-ray May 2022 TECHNIQUE: Standing AP view of both knees and lateral and sunrise view of the right knee FINDINGS: Right knee: There is a 3 component right knee replacement in satisfactory position. No fracture or dislocation. Moderate joint effusion. Anterior soft tissue swelling. Standing AP view of the left knee is unremarkable. XR/XR knee standing BI IMPRESSION: Satisfactory appearance of right knee replacement.
--- NOTE | ~2022-08-05 | XR_ITS ---
EXAMINATION: KNEE X-RAY CLINICAL INFORMATION: Pain COMPARISON: Previous x-ray May 2022 TECHNIQUE: Standing AP view of both knees and lateral and sunrise view of the right knee FINDINGS: Right knee: There is a 3 component right knee replacement in satisfactory position. No fracture or dislocation. Moderate joint effusion. Anterior soft tissue swelling. Standing AP view of the left knee is unremarkable. XR/XR knee RT 2V IMPRESSION: Satisfactory appearance of right knee replacement.
== END 2022-08-05 12:29 | disposition home or self-care (01) ==
LOC: HO.HOSX 12:28
PROVIDERS: Visit Provider Physician Assistant
DX: Z96.651 Presence of right artificial knee joint (principal); M25.562 Pain in left knee
CPT/HCPCS: 73560; 73565; 99212

== ENCOUNTER 2022-08-05 14:40 | Outpatient (REF) | payer MEDICARE, MEDICAID, SELFPAY ==
[2022-08-05 14:56] LABS: MANUAL DIFF FLAG NO
[2022-08-05 15:16] LABS: Basophils Absolute Auto 0.1 X10*3/uL (0.0-0.2); Eosinophils Absolute Auto 0.1 X10*3/uL (0.0-0.4); Eosinophils Percent Auto 1.6 % (0-4); Hematocrit 42.9 % (37.0-47.0); Imm Gran Abs Auto 0.01 X10*3/uL (0.00-0.03); Imm Gran Pct Auto 0.1 % (0.0-0.4); Lymphocytes Absolute Auto 2.6 X10*3/uL (1.2-4.9); Mean Corpuscular HGB Conc 32.6 g/dl (31.0-35.0); Mean Corpuscular Hemoglobin 26.8 pg (27.0-33.0); Mean Platelet Volume 9.9 fL (9.4-12.3); Monocytes Absolute Auto 0.5 X10*3/uL (0.1-1.2); Monocytes Percent Auto 6.9 % (2-11); Neutrophils Absolute Auto 3.8 x10*3/uL (2.0-8.3); Neutrophils Percent Auto 53.4 % (45-73); Platelet Count 294 X10*3/uL (160-400); Red Blood Count 5.23 X10*6/uL (4.20-5.50); Red Cell Distribution Width 14.3 % (11.0-16.0); White Blood Count 7.1 X10*3/uL (4.8-10.8)
[2022-08-05 15:39] LABS: C Reactive Protein 0.52 mg/dL (< or = 0.50)
[2022-08-05 15:53] LABS: Erythrocyte Sedimentation Rate 5 MM/HR (0-20)
== END 2022-08-05 14:41 | disposition home or self-care (01) ==
LOC: HO.LAB 14:40
PROVIDERS: PCP Internal Medicine; Visit Provider Internal Medicine Rheumatology
DX: M06.9 Rheumatoid arthritis, unspecified (principal)
CPT/HCPCS: 36415; 85025; 85652; 86140

== ENCOUNTER → 2022-08-06 10:27 | Outpatient (BNVA) | payer MEDICARE, MEDICAID, SELFPAY | PROVIDERS: PCP Internal Medicine; Visit Provider Nurse Practitioner Family | DX: M05.70 Rheumatoid arthritis with rheumatoid factor of unspecified site without organ or systems involvement (principal); M17.11 Unilateral primary osteoarthritis, right knee; R79.89 Other specified abnormal findings of blood chemistry; Z79.899 Other long term (current) drug therapy | CPT/HCPCS: 99212 ==

== ENCOUNTER 2022-09-01 11:51 | Outpatient (REF) | payer MEDICARE, MEDICAID, SELFPAY ==
[2022-09-04 02:59] LABS: HPV mRNA E6/E7 rflx Not Detected (Not Detected)
== END 2022-09-01 11:52 | disposition home or self-care (01) ==
LOC: HO.LNP 11:51
PROVIDERS: PCP Internal Medicine; Visit Provider Obstetrics & Gynecology
DX: Z01.419 Encounter for gynecological examination (general) (routine) without abnormal findings (principal); Z11.51 Encounter for screening for human papillomavirus (HPV)
CPT/HCPCS: 87624; 88142

== ENCOUNTER → 2022-09-16 09:04 | Outpatient (BNVA) | payer MEDICARE, MEDICAID, OTHER, SELFPAY | PROVIDERS: PCP Internal Medicine; Visit Provider Orthopaedic Surgery | DX: Z47.1 Aftercare following joint replacement surgery (principal); Z96.651 Presence of right artificial knee joint | CPT/HCPCS: 99212 ==

== ENCOUNTER 2022-09-22 09:00 | Outpatient (RCR) | payer MEDICARE, MEDICAID, SELFPAY ==
--- NOTE | 2022-07-08 13:48 | MHC.PT.DC ---
[facility] [place] Office [place] Office [place] Office [address] Lionel Shepard [address] [phone] F: [phone] F: [phone] F: [phone] F: [phone] Physical Therapy Discharge Report Diagnosis: S/P Rt TKA Date of Surgery: 06/22/22 Date of Evaluation: 07/08/22 Date of Discharge: Treatments to Date: 1 Cancellations to Date: 0 No Shows to Date: 0 Discharge Status: Discharge Summary: 67 YO FEMALE REF TO PT S/P Rt TKA ON 06/22/22. SHE RESIDES W HER SPOUSE IN A 1 LEVEL CONDO W 5 STEPS TO ENTER/ NO RAILINGS AND IS CURRENTLY AMB W A W/WALKER . OBJECTIVE FINDINGS: LIMITED AROM Rt KNEE, TIGHT PSOAS MM MARIBEL AND DECR ANKLE DF MARIBEL; DECR STRENGTH IN PROX / LUMBOPELVIC AND Rt LE, POST-OP PAIN IN RIGHT KNEE ,AND HEALING ANT Rt KNEE INCISION. FUNCTIONALLY, Pt IS AMB W A W/WALKER- SHE HAS COMPENSATORY GAIT, MODIFIED STAIR MGMT, DECR STANDING, SLEEPING, AND DECR AMENA TO ADLs REQ Rt KNEE FLEX. Pt IS A VERY GOOD PT CANDIDATE TO GUIDE HER IN HER POST-OP TKR COURSE, ADDRESSING THE ABOVE FINDINGS, PAIN MGMT, AND MAXIMIZING FUNCTIONAL INDEPENDENCE. Electronically signed by: Please sign and return to therapist. Thank you for your referral.
--- NOTE | 2022-09-22 09:55 | MHC.PT.DC ---
[facility] [place] Office [place] Office [place] Office [address] Lionel Shepard [address] [phone] F: [phone] F: [phone] F: [phone] F: [phone] Physical Therapy Discharge Report Diagnosis: S/P Rt TKA Date of Surgery: 06/22/22 Date of Evaluation: 07/08/22 Date of Discharge: 09/22/22 Treatments to Date: 16 Cancellations to Date: 1 No Shows to Date: 0 Discharge Status: Achieved Goals Improved Function Independent with HEP Discharge Summary: Pt MET PT GOALS SET FOR HER Rt TKA AT THIS TIME- SHE HAS FLUCTUATING SXS DUE TO HER RA, BUT DEMON INDEP TRANSFERS AND BED MOB, EFFICIENT GAIT, IMPROVED STRENGTH AND STAB IN LUMBOPELVIC AND LEs, AND FUNCTIONAL AROM (ADDRESSED Rt KNEE TERMINAL EXTENSION DEFICIT W TEMPORARY Lt HEEL LIFT). Pt IS MOTIVATED AND COMPLIANT W HEP. HER LEFI SCORE IMPROVED FROM 23/80 AT INITAL EVAL TO 62/80 AT D/C TODAY. Electronically signed by: LIT MARIN,PT Please sign and return to therapist. Thank you for your referral.
== END 2022-09-22 09:56 | disposition home or self-care (01) ==
LOC: HO.PT 09:00
PROVIDERS: Visit Provider Orthopaedic Surgery
DX: Z96.651 Presence of right artificial knee joint (principal)
CPT/HCPCS: 97110; 97112; 97116; 97140; 97162

== ENCOUNTER → 2022-10-06 07:27 | Outpatient (BNVA) | payer MEDICARE, MEDICAID, OTHER, SELFPAY | PROVIDERS: PCP Internal Medicine; Visit Provider Nurse Practitioner Family | DX: M05.9 Rheumatoid arthritis with rheumatoid factor, unspecified (principal); M17.11 Unilateral primary osteoarthritis, right knee; M16.12 Unilateral primary osteoarthritis, left hip | CPT/HCPCS: 99212 ==

== ENCOUNTER → 2022-10-27 08:43 | Outpatient (REF) | payer MEDICARE, MEDICAID, OTHER, SELFPAY ==
--- NOTE | 2022-10-27 08:46 | CA_ITS ---
Transthoracic Echocardiogram Patient (Last, First, Middle): Selene Barry, Gender: Female Date of : 1955 Age: 67 Procedure Date: 10/27/2022 Procedure Type: Transthoracic Echocardiogram Location: OP Height: 160.02 cm Weight: 77.57 kg BSA: 1.81 m2 Heart Rate: 54 bpm BP: 160 / 80 mmHg Leather Sprayer: SB Referring MD: Hernan Arriaga MD Film Inspector: Abimael Solorio MD Symptoms: I34.0 - Nonrheumatic mitral (valve) insufficiency Study Quality: Adequate ECG Rhythm: Bradycardia Conclusions: - 1. Normal LV systolic function with impaired relaxation filling pattern which regional wall motion ordinary suggestive underlying coronary artery disease 2. Mildly dilated left atrium 3. Fxfy-ls-uqwwmbyc mitral regurgitation 4. Normal RV systolic pressure 5. No gross pericardial effusion Findings Left Ventricle Normal left ventricular size, thickness, and systolic function. The visually estimated ejection fraction is between 55-60%. Spectral Doppler is indicative of an impaired relaxation filling pattern. E/E prime ratio is between 8 and 15 consistent with indeterminate filling pressures. Wall Motion Rest Echo Findings The mid inferior and mid inferoseptal segments are hypokinetic. The basal inferior and basal inferoseptal segments are akinetic. All other scored wall segments showed normal motion. Right Ventricle Normal right ventricular cavity size and systolic function. Atria The left atrium is mildly dilated. There is no evidence of interatrial shunt. The right atrium is normal in size. Aortic Valve Normal aortic valve structure and function. There is no aortic valve stenosis. There is no aortic valve regurgitation. Mitral Valve There is mild anterior and moderate posterior mitral leaflet thickening. The posterior mitral leaflet has restricted mobility. There is mild to moderate mitral valve regurgitation. There is no mitral valve stenosis. Pulmonic Valve The pulmonic valve is likely normal. There is trace pulmonic valve regurgitation. Tricuspid Valve Normal tricuspid valve structure. There is trace tricuspid valve regurgitation. The right ventricular systolic pressure is normal. The right ventricular systolic pressure is 21 mmHg. Normal right atrial pressure. There is no evidence of pulmonary hypertension. Great Vessels All visible segments of the aorta are normal in size. The pulmonary artery was not well visualized. Venous The inferior vena cava is normal in size and collapses greater than 50% with inspiration. Pericardium/Pleural There is no evidence of pericardial effusion. Prior Study Comparison No significant change compared to prior study dated: 10/03/2020. Measurements 2D Linear Measurements IVSd: 1.06 0.6-0.9/0.6-1.0 cm LVIDd: 5.04 3.9-5.3/4.2-5.9 cm LVIDd Index: 2.78 2.4-3.2/2.2-3.1 cm/m2 LVIDs: 3.25 2.0-3.6 cm LVPWd: 0.79 0.7-1.1 cm LA Diam: 5.30 2.7-3.8/3.0-4.0 cm LAIDs Index: 2.93 1.5-2.3 cm/m2 LV Mass: 239.87 67-162/88-224 g LV Mass Index: 132.52 43-95/49-115 g/m2 LVOT Diam: 2.20 3.0+(-)1.3 cm 2D Systolic Function EF 4C: 62.90 >55% EF 2C: 50.70 >55% EF BiP: 56.60 >55% Mitral Valve MV Pk E: 0.80 MV PK A: 0.70 MV Decel Time: 234.00 E/A: 1.10 E'Lateral: 8.81 E'Medial: 4.57 E/E' Med: 17.50 E/E' Lat: 9.10 PHT: 69.00 MVA PHT: 3.19 Decel [place]: 3.43 MR VTI: 2.45 Aortic Valve AoV Pk Gabriel: 1.27 AoV Pk Grad: 6.00 ROSEY: 2.66 LVOT LVOT Pk Gabriel: 0.89 LVOT Mn Gabriel: 0.57 LVOT VTI: 0.19 LVOT Pk Grad: 3.00 LVOT Mn Grad: 2.00 LVOT Diam: 2.20 LVOT Area: 3.80 Diastolic Function MV Pk E: 0.80 MV Pk A: 0.70 E/A: 1.10 E'Medial: 4.57 E/E' Med: 17.50 E' Laterial: 8.81 E/E' Lat: 9.10 Right Ventricle TAPSE (mm): 12.40 TVS' Gabriel: 6.60 Tricuspid Valve TR Pk Gabriel: 2.14 TR Pk Grad: 18.00 RA Press: 3.00 RVSP: 21.00 Great Vessels Aorta Sinus of Valsalva: 3.30 2.0-3.5 cm Ao Asc: 3.50 2.1-3.4 cm Pulmonary Veins Pulm Vein S/D 1.30 Pulmonary Valve PV Pk Gabriel: 0.63 Peak PV Grad: 2.00 Updated in Other Vendor System with Status of Final Abimael Solorio MD electronically signed on 10/27/2022 5:01:56 PM with status of Final
[2022-10-27 08:55] LABS: MANUAL DIFF FLAG NO
[2022-10-27 09:24] LABS: Basophils Absolute Auto 0.1 X10*3/uL (0.0-0.2); Basophils Percent Auto 1.1 % (0-2); Eosinophils Absolute Auto 0.2 X10*3/uL (0.0-0.4); Eosinophils Percent Auto 2.6 % (0-4); Hematocrit 43.4 % (37.0-47.0); Hemoglobin 14.1 g/dl (12.0-16.0); Imm Gran Abs Auto 0.02 X10*3/uL (0.00-0.03); Imm Gran Pct Auto 0.3 % (0.0-0.4); Lymphocytes Absolute Auto 3.2 X10*3/uL (1.2-4.9); Lymphocytes Percent Auto 48.9 % (20-40); Mean Corpuscular HGB Conc 32.5 g/dl (31.0-35.0); Mean Corpuscular Hemoglobin 25.8 pg (27.0-33.0); Mean Corpuscular Volume 79.5 fL (80.0-98.0); Mean Platelet Volume 10.3 fL (9.4-12.3); Monocytes Absolute Auto 0.8 X10*3/uL (0.1-1.2); Monocytes Percent Auto 11.7 % (2-11); Neutrophils Absolute Auto 2.3 x10*3/uL (2.0-8.3); Neutrophils Percent Auto 35.4 % (45-73); Platelet Count 242 X10*3/uL (160-400); Red Blood Count 5.46 X10*6/uL (4.20-5.50); Red Cell Distribution Width 14.9 % (11.0-16.0); White Blood Count 6.5 X10*3/uL (4.8-10.8)
[2022-10-27 09:56] LABS: Alanine Aminotransferase 11 U/L (0-31); Aspartate Amino Transferase 14 U/L (5-31); Calcium 9.2 mg/dL (8.4-10.2); Estimated Glomerular Filt Rate > 60
[2022-10-27 10:27] LABS: Erythrocyte Sedimentation Rate 2 MM/HR (0-20)
== END ==
LOC: HO.CARD 08:43
PROVIDERS: Nurse Practitioner Family; PCP Internal Medicine; Visit Provider Internal Medicine
DX: I34.0 Nonrheumatic mitral (valve) insufficiency (principal); M05.9 Rheumatoid arthritis with rheumatoid factor, unspecified; R79.89 Other specified abnormal findings of blood chemistry; Z79.899 Other long term (current) drug therapy
CPT/HCPCS: 36415; 82310; 82565; 84450; 84460; 85025; 85652; 86140; 93306

== ENCOUNTER → 2022-11-10 10:24 | Outpatient (BNVA) | payer MEDICARE, MEDICAID, SELFPAY | PROVIDERS: PCP Internal Medicine; Referring Provider Internal Medicine; Visit Provider Internal Medicine | DX: I25.10 Atherosclerotic heart disease of native coronary artery without angina pectoris (principal); I10 Essential (primary) hypertension; I34.0 Nonrheumatic mitral (valve) insufficiency; Z95.1 Presence of aortocoronary bypass graft; R60.0 Localized edema | CPT/HCPCS: 99212 ==

== ENCOUNTER 2023-02-08 06:56 | Outpatient (REF) | payer MEDICARE, MEDICAID, SELFPAY ==
[2023-02-08 07:05] LABS: MANUAL DIFF FLAG NO
[2023-02-08 07:29] LABS: Basophils Absolute Auto 0.1 X10*3/uL (0.0-0.2); Basophils Percent Auto 1.3 % (0-2); Eosinophils Absolute Auto 0.2 X10*3/uL (0.0-0.4); Hematocrit 42.4 % (37.0-47.0); Imm Gran Abs Auto 0.01 X10*3/uL (0.00-0.03); Imm Gran Pct Auto 0.2 % (0.0-0.4); Lymphocytes Absolute Auto 3.4 X10*3/uL (1.2-4.9); Lymphocytes Percent Auto 56.2 % (20-40); Mean Corpuscular Hemoglobin 27.3 pg (27.0-33.0); Mean Corpuscular Volume 82.8 fL (80.0-98.0); Mean Platelet Volume 10.8 fL (9.4-12.3); Monocytes Absolute Auto 0.6 X10*3/uL (0.1-1.2); Monocytes Percent Auto 9.5 % (2-11); Neutrophils Absolute Auto 1.8 x10*3/uL (2.0-8.3); Neutrophils Percent Auto 29.8 % (45-73); Platelet Count 243 X10*3/uL (160-400); Red Blood Count 5.12 X10*6/uL (4.20-5.50); Red Cell Distribution Width 13.3 % (11.0-16.0)
[2023-02-08 08:18] LABS: Anion Gap 11 (12-20); Blood Urea Nitrogen 17 mg/dL (9-16); C Reactive Protein 0.15 mg/dL (< or = 0.50); Carbon Dioxide 25 mmol/L (22-29); Chloride 109 mmol/L (96-108); Estimated Glomerular Filt Rate > 60; Glucose Random 98 mg/dL (60-115); Sodium 141 mmol/L (135-145)
[2023-02-08 12:50] LABS: Erythrocyte Sedimentation Rate 3 MM/HR (0-20)
== END 2023-02-08 06:57 | disposition home or self-care (01) ==
LOC: HO.LAB 06:56
PROVIDERS: PCP Internal Medicine; Visit Provider Internal Medicine Rheumatology
DX: M05.9 Rheumatoid arthritis with rheumatoid factor, unspecified (principal); Z79.899 Other long term (current) drug therapy
CPT/HCPCS: 36415; 80048; 85025; 85652; 86140

== ENCOUNTER 2023-02-09 09:45 | Outpatient (AMB) | payer MEDICARE, MEDICAID, SELFPAY ==
--- NOTE | 2023-02-09 09:46 | A.OFFVIS_ITS ---
Intake Vital Signs 02/09/23 09:47 Height 5 ft 3 in Weight 172 lb 13.478 oz BMI 30.6 BP 137/84 Blood Pressure Location Lt brachial Position Sitting Pulse 87 Temp 97 F Temp Source Skin Pulse Oximetry (%) 98 Oxygen Delivery Method Room Air Intake Visit Reasons: rheumatoid arthritis Intake Note: Here for RA follow up. 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 Required: No Accompanied by: Self / Same As Patient Allergies No Known Allergies [No Known Allergies*] Allergy (Verified 02/09/23 09:51) Medication List - Last Reconciled 02/09/23 by Dom Jacobo MD acetaminophen 650 mg (2 x 325 mg) PO Q6H PRN 30 days amoxicillin 1,000 mg PO BID aspirin (Adult Low Dose Aspirin) 81 mg PO DAILY atorvastatin 80 mg PO BEDTIME calcium carbonate-vitamin D3 500 mg-5 mcg (200 unit) (Calcium 500 + D) 1 tab PO DAILY etanercept (Enbrel SureClick) 50 mg subcut QWEEK furosemide (Lasix) 20 mg PO DAILY levothyroxine 112 mcg PO MOTUWETHFRSA metoprolol tartrate 50 mg PO BID omeprazole 20 mg PO DAILY HPI HPI Comments History of Present Illness Details The patient returns for evaluation of her rheumatoid arthritis and osteoarthritis. She remains on Enbrel 50 mg once a week. She had a right total knee replacement last fall and that seems to be doing fairly well. However now with walking more she is having more left hip symptoms. Pain is occurring with prolonged walking or standing. It is located anteriorly and laterally in the left hip. She does not seem to have much discomfort there at night. There is occasional low back pain. She was given some Celebrex for that with modest improvement but does not think it is enough to bother taken and another pill. 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 Non-rheumatic mitral regurgitation Personal history of COVID-19 Seropositive rheumatoid arthritis Surgical History History of back surgery History of thyroid surgery Hx of bilateral cataract extraction Hx of colonoscopy Hx of total knee replacement Status post coronary artery bypass graft Family History Mother HTN (hypertension) Social History Are you a primary hospice care transitions coordinator to a significant other at home: No Do you presently have visiting nurse or other home services: No Alcohol intake: current Alcohol intake frequency: holidays/special occasions only Alcohol type: wine Patient Tobacco Use Status: Former Tobacco user Quit Date: Tobacco use type: Cigarette Years Smoked: 10 +/- Female Reproductive History Menstrual Age of Menarche: 12 Review of Systems Const Details: Negative for appetite change, weight change, fever, chills, malaise and fatigue Eyes Details: Negative for vision change, dry eyes,headaches and dizziness Card Details: Negative chest pain, edema and syncope Resp Details: Negative for SOB, cough and wheezing GI Details: Negative indigestion/heartburn, nausea, abdominal pain, bowel changes, diarrhea, constipation and bloody stool. Endo Details: Negative for polyuria and polydypsia Terence/Lymph Details: Negative for excessive bruising or bleeding. Physical Exam Vital Signs: Last Vital Signs Temp 97 F 02/09/23 09:47 Pulse 87 02/09/23 09:47 BP 137/84 02/09/23 09:47 Pulse Ox 98 02/09/23 09:47 Oxygen Delivery Method Room Air 02/09/23 09:47 BMI result Body Mass Index 30.6 APPEARANCE: Patient in no acute distress EXTREMITIES: There is trace ankle and pedal edema on the right lower extremity. The skin has some small areas of induration but no tenderness or breaks in the skin. She says this had developed after her knee replacement. There is no calf tenderness. SKIN: Some venous stasis changes in the lower leg on the right. JOINT EXAM: Cervical Spine: Full range of motion without pain; no tenderness. Thoracic Spine:?? No tenderness on palpation. Lumbar Spine: Alignment normal.? Full range of motion without pain, no tenderness. Hands:? LEFT: Normal pain-free range of motion without tenderness, swelling, increased warmth or erythema. Able to make a full fist and has a good criminal defense attorney strength. ? RIGHT: Normal pain-free range of motion.? There is slight tenderness without swelling of the 3rd MCP. There is some minimal bony enlargement without tenderness at the thumb IP. Other joints have no tenderness, swelling, increased warmth or erythema. Able to make a full fist and has a good criminal defense attorney strength. Wrists:? LEFT: Normal pain-free range of motion.? No tenderness, swelling, increased warmth or erythema.? RIGHT:? Mild discomfort with extremes of 75 degrees flexion or extension. Slight dorsal tenderness but no swelling, increased warmth or erythema. Elbows: LEFT: Normal pain-free range of motion without tenderness, swelling, increased warmth or erythema. ? RIGHT:? Normal range of motion without tenderness, swelling, in creased warmth or erythema. Shoulders:? Full range of motion without pain. No tenderness, weakness, swelling, increased warmth or erythema. Hips:? LEFT:? There is mild groin pain with abduction at 15 degrees or rotation externally at 15 degrees. She is unable to allow internal rotation. There is no mass or tenderness in the groin.? No swelling, erythema, ecchymosis, or warmth noted. ? RIGHT:? Full range of motion without tenderness, swelling, increased warmth or erythema. Hip Bursa:? No tenderness bilaterally. Knees:?? LEFT: Normal pain-free range of motion without tenderness, swelling, increased warmth or erythema.? There is no effusion or crepitation ? RIGHT:? Pain-free range of motion.? Well-healed anterior scar from knee replacement. No areas of tenderness, swelling, effusion, or erythema.? Ankles:? Full range of motion, no tenderness, swelling, increased or erythema. Feet: Left: Slight 1st MTP bony enlargement with minimal hallux valgus d eformity. No tenderness. No other areas of swelling or tenderness. Right: Full range of motion, no tenderness, swelling, inreased or erythema ?? Results Reviewed Results Reviewed: Laboratory Tests 10/27/22 02/08/23 02/08/23 08:52 07:04 07:04 WBC 6.0 Hgb 14.0 ESR 3 Creatinine AST 14 ALT 11 C-Reactive Protein 02/08/23 07:04 WBC Hgb ESR Creatinine 0.69 AST ALT C-Reactive Protein 0.[address] [address] XRay Report Signed Patient: Selene Barry MR#: [id number] : 1955 Acct:[id number] Age/Sex: 66 / F ADM Date: 06/15/21 Loc: [facility] Attending Dr: Mahamed Byrne MD Ordering Physician: Mahamed Byrne MD Date of Service: 06/15/21 Procedure(s): XR pelvis 1-2V Accession Number(s): [id number] cc: Mahamed Byrne MD~ EXAMINATION: XR PELVIS CLINICAL INFORMATION: Hip pain.? COMPARISON: 05/15/2021? TECHNIQUE: AP view of the pelvis. FINDINGS: Moderate osteoarthritis in the left hip is characterized by non-uniform joint space narrowing with subchondral sclerosis and marginal osteophytes. There is buttressing of the medial femoral neck. Mild osteoarthritis is evident in the right hip and bilateral SI joints. Enthesopathic spurring is present at the anterior superior iliac spines and greater trochanters. There is marked degenerative spondylosis in the lower lumbar spine with left convex lumbar scoliosis. No acute fractures. Surgical clip is present in the right inguinal region. XR/XR pelvis 1-2V IMPRESSION: 1. Moderate osteoarthritis in the left hip and more mild osteoarthritis in the right hip and SI joints. ? 2. Marked degenerative spondylosis in the lower lumbar spine. Dictated By: CODY MILLER MD Assessment & Plan Assessment & Plan (1) Osteoarthritis of left hip: Code(s): M16.12 - Unilateral primary osteoarthritis, left hip (2) Status post total knee replacement, right: Code(s): Z96.651 - Presence of right artificial knee joint (3) intermediate card tender use of drug: Code(s): Z79.899 - Other assisted (current) drug therapy (4) Seropositive rheumatoid arthritis: Comment: Leflunomide 2016 Plaquenil 2017 Enbrel September 2018-December 2018- restarted February 2022 (on Hold for right arthrop lasty on Jun 22) restareted July 2022. Humira January 2019 - October 2019 Methotrexate October 2018-September 2020-self stopped Xeljanz October 2019- September 2020- self stopped Kevzara- September 2020- October 2021- active disease on exam Actemra- October 2021- January 2022-low WBC, PLTS and absolute neutraphils Code(s): M05.9 - Rheumatoid arthritis with rheumatoid factor, unspecified Plan Rheumatoid arthritis with I think good control of synovitis with current regimen. She is having some left hip joint pain. Radiographs from 2 years ago did indicate some degree of osteoarthritis. I think she is more symptomatic with the hip now that she can walk more with the relief of symptoms from the right knee pain. I told her we should stay with the Enbrel, hopefully that will help prevent the progression of the hip pain in the left hip region to progressing to end-stage OA. The lab work and looked good so we will continue with the Enbrel. A follow-up in about 6 months is recommended. Coding Level of Care Code Est Pt Level 3 (31514) Diagnoses Osteoarthritis of left hip M16.12 Status post total knee replacement, right Z96.651 senior care use of drug Z79.899 Seropositive rheumatoid arthritis M05.9
[2023-02-09 09:47] VITALS: BP 137/84; PULSE 87; TEMP 36.1; O2SAT 98; BMI 30.6
== END 2023-02-09 10:25 | disposition home or self-care (01) ==
PROVIDERS: PCP Internal Medicine; Visit Provider Internal Medicine Rheumatology
DX: M05.89 Other rheumatoid arthritis with rheumatoid factor of multiple sites (principal); M16.12 Unilateral primary osteoarthritis, left hip; Z96.651 Presence of right artificial knee joint; Z79.899 Other long term (current) drug therapy
CPT/HCPCS: 99213

== ENCOUNTER → 2023-02-09 09:45 | Outpatient (BNVA) | payer MEDICARE, OTHER, MEDICAID, SELFPAY | PROVIDERS: PCP Internal Medicine; Visit Provider Internal Medicine Rheumatology | DX: M16.12 Unilateral primary osteoarthritis, left hip (principal); M05.9 Rheumatoid arthritis with rheumatoid factor, unspecified; Z79.899 Other long term (current) drug therapy; Z96.651 Presence of right artificial knee joint | CPT/HCPCS: 99212 ==

== ENCOUNTER 2023-03-10 08:19 | Outpatient (REF) | payer MEDICARE, MEDICAID, SELFPAY ==
--- NOTE | ~2023-03-10 | MM_ITS ---
EXAMINATION: MM SCREENING DIGITAL BREAST TOMOSYNTHESIS, BILATERAL CLINICAL INFORMATION: Screening. Asymptomatic. COMPARISON: Mammography: This study is compared with prior exams dating back to 2017. TECHNIQUE: Digital breast tomosynthesis is performed in both the craniocaudal and mediolateral oblique views along with computer-aided detection (CAD). Synthesized 2D images are generated from the tomosynthesis. FINDINGS: The breasts are almost entirely fatty (ACR BI-RADS breast composition Category a). There are no significant masses, abnormal calcifications, or other abnormalities. MM/MM tomosynthesis screening BI IMPRESSION: No mammographic evidence of malignancy. ASSESSMENT: BI-RADS BI-RADS 1 - Negative RECOMMENDATION: Routine annual mammography screening. 1 year F/U This examination should not preclude the clinical evaluation of a suspicious palpable abnormality. This patient's information was entered into a reminder system with a target due date for their next mammogram.
== END 2023-03-10 08:20 | disposition home or self-care (01) ==
LOC: HO.MAMMO 08:19
PROVIDERS: PCP Internal Medicine; Visit Provider Internal Medicine
DX: Z12.31 Encounter for screening mammogram for malignant neoplasm of breast (principal)
CPT/HCPCS: 77063; 77067

== ENCOUNTER → 2023-03-10 08:30 | Outpatient (BNV) | payer MEDICARE, MEDICAID, SELFPAY | PROVIDERS: PCP Internal Medicine; Visit Provider Radiology Diagnostic Radiology | DX: Z12.31 Encounter for screening mammogram for malignant neoplasm of breast (principal) | CPT/HCPCS: 77063; 77067 ==

== ENCOUNTER 2023-05-05 11:39 | Outpatient (REF) | payer MEDICARE, MEDICAID, SELFPAY ==
[2023-05-05 12:17] LABS: Estimated Average Glucose 94 mg/dL; Hemoglobin A1c % 4.9 % (<6.0)
[2023-05-05 12:24] LABS: Alanine Aminotransferase 9 U/L (0-31); Albumin Level 4.1 g/dL (3.5-5.0); Alkaline Phosphatase 133 U/L (39-117); Aspartate Amino Transferase 17 U/L (5-31); Bilirubin Direct 0.3 mg/dL (0.0-0.5); Bilirubin Total 0.8 mg/dL (0.0-1.0); Cholesterol 106 mg/dL (<200); Glucose Fasting 95 mg/dL (60-99); HDL Cholesterol 36 mg/dL (>40); LDL Cholesterol Calculated 49 mg/dL (<100); Total Protein 7.2 g/dL (6.5-8.0); Triglycerides 108 mg/dL (<150)
== END 2023-05-05 11:40 | disposition home or self-care (01) ==
LOC: HO.LNP 11:39
PROVIDERS: Visit Provider Internal Medicine
DX: R73.09 Other abnormal glucose (principal); E78.00 Pure hypercholesterolemia, unspecified
CPT/HCPCS: 80061; 80076; 82947; 83036

== ENCOUNTER 2023-05-10 15:03 | Outpatient (REF) | payer MEDICARE, MEDICAID, SELFPAY ==
[2023-05-10 15:59] LABS: Influenza A PCR NEGATIVE (Negative); Influenza B PCR NEGATIVE (Negative); Resp Syncy Virus RNA Qual PCR NEGATIVE (Negative); SARS COV2 PCR INHOUSE NEGATIVE (Negative)
== END 2023-05-10 15:04 | disposition home or self-care (01) ==
LOC: HO.LAB 15:03
PROVIDERS: PCP Internal Medicine; Visit Provider Internal Medicine
DX: Z11.52 Encounter for screening for COVID-19 (principal); Z20.822 Contact with and (suspected) exposure to COVID-19; J40 Bronchitis, not specified as acute or chronic
CPT/HCPCS: 0241U

== ENCOUNTER 2023-05-23 13:46 | Outpatient (REF) | payer MEDICARE, MEDICAID, SELFPAY ==
--- NOTE | ~2023-05-23 | XR_ITS ---
EXAMINATION: XR CHEST CLINICAL INFORMATION: Reason for Exam RESPIRATION INFECTION COMPARISON: Chest radiograph 07/29/2020 TECHNIQUE: 2 views of the chest FINDINGS: Lines and tubes: Median sternotomy wires and mediastinal surgical clips. Clear lungs. No pleural effusion. No pneumothorax. Normal cardiomediastinal silhouette. XR/XR chest 2V IMPRESSION: * Clear lungs.
== END 2023-05-23 13:47 | disposition home or self-care (01) ==
LOC: HO.XRAY 13:46
PROVIDERS: PCP Internal Medicine; Visit Provider Internal Medicine
DX: J98.8 Other specified respiratory disorders (principal)
CPT/HCPCS: 71046

== ENCOUNTER 2023-06-06 08:54 | Outpatient (AMB) | payer MEDICARE, OTHER, MEDICAID, SELFPAY ==
--- NOTE | 2023-06-06 08:55 | MHC.OFFVIS ---
Intake Vital Signs 06/06/23 08:56 Height 5 ft 3 in Weight 172 lb BMI 30.5 Intake Visit Reasons: OV-RT TKA 06/22/22 NE Intake Note: Selene is a 68 year old female who presenets today for a one year follow up of her right knee s/p Right TKA 06/22/2022. Patient reports that she is doing well, she has some weakness when ambulating stairs. Allergies No Known Allergies [No Known Allergies*] Allergy (Verified 02/09/23 09:51) HPI OV-RT TKA 06/22/22 NE HPI Details Selene is a 68 year old woman who presents ~1 year S/P right TKA. She has known RA and takes Enbrel. She is doing well and denies any pain in regards to her knee. She is happy with the results of her surgery. She had some questions about lumps she noticed about her knee, but she says these are not particularly painful. She says she uses a cane occasionally, primarily she uses it when doing stairs but she may use it more often in inclimate weather as this can affect her pain. She had questions about Abx and dental procedures. 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 Seropositive rheumatoid arthritis Coronary arteriosclerosis Surgical History Hx of total knee replacement (06/22/22) Hx of bilateral cataract extraction Hx of colonoscopy History of back surgery Status post coronary artery bypass graft History of thyroid surgery Family History Mother HTN (hypertension) Social History Are you a primary healthcare prof to a significant other at home: No Do you presently have visiting nurse or other home services: No Alcohol intake: current Alcohol intake frequency: holidays/special occasions only Alcohol type: wine Comment: bathroom only, aware of trip hazards Patient Tobacco Use Status: Former Tobacco user Quit Date: Tobacco use type: Cigarette Years Smoked: 10 +/- Female Reproductive History Menstrual Age of Menarche: 12 Review of Systems Const All systems reviewed & are unremarkable except as noted in HPI and below Physical Exam Vital Signs: BMI result Body Mass Index 30.5 Const General: no acute distress, alert and awake Orientation/consciousness: patient oriented x3 HEENT Head: Yes normocephalic and Yes atraumatic Eyes EOM: EOMs intact bilaterally Resp Effort & Inspection: normal respiratory effort and able to speak in complete sentences Cardio Jugular venous distension: no JVD Skin General skin exam: turgor normal Rashes: no rashes Neuro General: patient oriented x3 Extrem Other: 0-130 well healed incision nl gait and stable arc of motion Psych Appearance: grossly normal Affect: normal affect Attitude: cooperative Results Reviewed Results Reviewed: I personally reviewed relevant radiographs Left total knee arthroplasty in expected post operative position with no hardware complications or evidence of loosening Assessment & Plan Assessment & Plan (1) Status post total knee replacement, right: Code(s): Z96.651 - Presence of right artificial knee joint Plan: Doing well Dnealt prophylaxis for one more year may follow up biannuallly or as needed. Plan Scribed for Mahamed Byrne MD by Tevin Diaz medical assistant prn, on 06/06/23 at 9:20 AM, EST. Coding Level of Care Code Est Pt Level 3 (54942) Diagnoses Status post total knee replacement, right Z96.651
[2023-06-06 08:56] VITALS: BMI 30.5
== END 2023-06-06 09:37 | disposition home or self-care (01) ==
PROVIDERS: Visit Provider Orthopaedic Surgery
DX: Z47.1 Aftercare following joint replacement surgery (principal); Z96.651 Presence of right artificial knee joint
CPT/HCPCS: 99213

== ENCOUNTER → 2023-06-06 08:54 | Outpatient (BNVA) | payer MEDICARE, MEDICAID, OTHER, SELFPAY | PROVIDERS: Visit Provider Orthopaedic Surgery | DX: Z96.651 Presence of right artificial knee joint (principal) | CPT/HCPCS: 99212 ==

== ENCOUNTER 2023-06-16 09:45 | Outpatient (AMB) | payer MEDICARE, OTHER, MEDICAID, SELFPAY ==
--- NOTE | 2023-06-16 09:45 | MHC.OFFVIS ---
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 Required: No Information Interpreted: clinical only Clinical Services Professional: Clinical Services Professional Present Allergies No Known Allergies [No Known Allergies*] Allergy (Verified 06/16/23 09:45) Medication List - Last Reconciled 06/16/23 by Vee Woo CNM acetaminophen 650 mg (2 x 325 mg) PO Q6H PRN 30 days aspirin (Adult Low Dose Aspirin) 81 mg PO DAILY atorvastatin 80 mg PO BEDTIME calcium carbonate-vitamin D3 500 mg-5 mcg (200 unit) (Calcium 500 + D) 1 tab PO DAILY etanercept (Enbrel SureClick) 50 mg subcut QWEEK furosemide (Lasix) 20 mg PO DAILY levothyroxine 112 mcg PO MOTUWETHFRSA metoprolol tartrate Take 1 tablet by mouth twice daily omeprazole 20 mg PO DAILY HPI vaginal Bump HPI Details Called and was put on the schedule today to explore of vaginal bumps that she has been feeling she felt it a few months ago and then she felt it last month and then she felt it again. It does not hurt but she is concerned about. She normally sees Dr. Becker she has rheumatoid arthritis and thyroid problems and she has had cardiac bypasses. She has a right total knee replacement and has been to PT for her exercises for PT she takes Enbrel every week. Sexually active with her she has no worries about STDs the bumped does not hurt or itch. 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 Seropositive rheumatoid arthritis Coronary arteriosclerosis Surgical History Hx of total knee replacement (06/22/22) Hx of bilateral cataract extraction Hx of colonoscopy History of back surgery Status post coronary artery bypass graft History of thyroid surgery Family History Mother HTN (hypertension) Social History Are you a primary career specialist to a significant other at home: No Do you presently have visiting nurse or other home services: No Alcohol intake: current Alcohol intake frequency: holidays/special occasions only Alcohol type: wine Comment: bathroom only, aware of trip hazards Patient Tobacco Use Status: Former Tobacco user Quit Date: Tobacco use type: Cigarette Years Smoked: 10 +/- Female Reproductive History Menstrual Age of Menarche: 12 Date of last pap smear: 09/01/22 (negative) History of abnormal pap smear: No Physical Exam Vital Signs: Last Vital Signs BP 140/78 H 06/16/23 09:59 BMI result Body Mass Index 31.2 Other: Patient has vaginal prolapse of the posterior vaginal wall and apex of the vagina. Her cervix is fairly well supported anteriorly I did not feel prolapse of the uterus. Patient was unable to perform a Kegel despite several tries with instruction. The vaginal prolapse was easily replaced and did not displace again in supine position. External Female Exam: normal external appearance and normal appearance of the urethra Speculum Exam - Vagina: normal appearance of the vagina and normal palpation Speculum Exam - Cervix: normal palpation and Cervical os closed Bimanual exam- vagina & uterus: normal palpation and normal palpation Bimanual Exam- Adnexa, other: No adnexal tenderness, No apex supported and vaginal apex descent Assessment & Plan Assessment & Plan (1) Vaginal prolapse without uterine prolapse: Code(s): N81.10 - Cystocele, unspecified (2) Pelvic floor weakness: Code(s): N81.89 - Other female genital prolapse Plan ---I Had the patient and demonstrate a Kegel contraction at the end of the exam, ordered in order to explain a Kegel exercise, and instructed the patient on doing the same exercises several times a day with increasing strength each time. One useful to is to imagine pursestring around the vagina and pulling it tight and upwards as if raising the vagina, or imagining that her tight muscles are on the 1st floor and she is trying to pull them up to the 5th floor and then slowly letting them go down. To try to do these several times a day but focus on the quality and the strength of the exercises more than the quantity, and tried isolate just those muscles and not involve other body parts. Discussed that she needs more intervention then simply my instructions today. I am placing a referral to physical therapy for pelvic floor therapy. Discussed that the patient may also if that does not benefit her need a referral to urogynecologist. Also discussed that sometimes pessaries are used but that is not something I have expertise in. She normally sees Dr. Becker so if the pelvic floor therapy does not resolve this issue she can discuss it when she sees him at her upcoming visit. In the meantime I also gave her written instructions and pointed out some hints in the instructions and the description of the muscles and what she needs to focus on to try to help her focus the muscle contraction. Orders: Referrals Pelvic Machine Operator Transplanter Referral M62.89 - Other specified disorders of muscle, N81.10 - Cystocele, unspecified, N81.89 - Other female genital prolapse Coding Level of Care Code Est Pt Level 3 (77460) Diagnoses Vaginal prolapse without uterine prolapse N81.10 Pelvic floor weakness N81.89
[2023-06-16 09:59] VITALS: BP 140/78; BMI 31.2
== END 2023-06-16 10:38 | disposition home or self-care (01) ==
LOC: HO.HWSM 09:45
PROVIDERS: PCP Internal Medicine; Visit Provider Advanced Practice Midwife
DX: N81.10 Cystocele, unspecified (principal); N81.89 Other female genital prolapse
CPT/HCPCS: 99213

== ENCOUNTER → 2023-06-16 09:45 | Outpatient (BNVA) | payer MEDICARE, MEDICAID, OTHER, SELFPAY | PROVIDERS: PCP Internal Medicine; Visit Provider Advanced Practice Midwife | DX: N81.10 Cystocele, unspecified (principal); N81.89 Other female genital prolapse | CPT/HCPCS: 99212 ==

== ENCOUNTER 2023-07-14 09:22 | Outpatient (REF) | payer MEDICARE, MEDICAID, SELFPAY ==
[2023-07-14 09:49] LABS: MANUAL DIFF FLAG NO
[2023-07-14 10:41] LABS: Basophils Absolute Auto 0.1 X10*3/uL (0.0-0.2); Basophils Percent Auto 1.2 % (0-2); Eosinophils Absolute Auto 0.1 X10*3/uL (0.0-0.4); Eosinophils Percent Auto 2.5 % (0-4); Hematocrit 43.4 % (37.0-47.0); Hemoglobin 14.2 g/dl (12.0-16.0); Imm Gran Abs Auto 0.02 X10*3/uL (0.00-0.03); Imm Gran Pct Auto 0.4 % (0.0-0.4); Lymphocytes Absolute Auto 2.7 X10*3/uL (1.2-4.9); Lymphocytes Percent Auto 47.2 % (20-40); Mean Corpuscular HGB Conc 32.7 g/dl (31.0-35.0); Mean Corpuscular Hemoglobin 28.1 pg (27.0-33.0); Mean Corpuscular Volume 85.9 fL (80.0-98.0); Mean Platelet Volume 10.4 fL (9.4-12.3); Monocytes Absolute Auto 0.5 X10*3/uL (0.1-1.2); Monocytes Percent Auto 9.5 % (2-11); Neutrophils Absolute Auto 2.2 x10*3/uL (2.0-8.3); Neutrophils Percent Auto 39.2 % (45-73); Platelet Count 221 X10*3/uL (160-400); Red Blood Count 5.05 X10*6/uL (4.20-5.50); Red Cell Distribution Width 13.3 % (11.0-16.0); White Blood Count 5.7 X10*3/uL (4.8-10.8)
[2023-07-14 11:20] LABS: Alanine Aminotransferase 10 U/L (0-31); Albumin Level 4.1 g/dL (3.5-5.0); Alkaline Phosphatase 120 U/L (39-117); Anion Gap 13 (12-20); Aspartate Amino Transferase 14 U/L (5-31); Bilirubin Total 0.7 mg/dL (0.0-1.0); Blood Urea Nitrogen 17 mg/dL (9-16); Calcium 9.3 mg/dL (8.4-10.2); Carbon Dioxide 29 mmol/L (22-29); Chloride 106 mmol/L (96-108); Estimated Glomerular Filt Rate > 60; Glucose Random 107 mg/dL (60-115); Potassium 3.9 mmol/L (3.3-5.1); Sodium 144 mmol/L (135-145); Total Protein 7.1 g/dL (6.5-8.0)
[2023-07-14 11:54] LABS: Erythrocyte Sedimentation Rate 2 MM/HR (0-20)
== END 2023-07-14 09:23 | disposition home or self-care (01) ==
LOC: HO.LAB 09:22
PROVIDERS: PCP Internal Medicine; Visit Provider Nurse Practitioner Family
DX: M05.9 Rheumatoid arthritis with rheumatoid factor, unspecified (principal); Z79.60 Long term (current) use of unspecified immunomodulators and immunosuppressants; Z79.899 Other long term (current) drug therapy
CPT/HCPCS: 36415; 80053; 85025; 85652; 86140

== ENCOUNTER 2023-07-15 14:35 | Outpatient (AMB) | payer MEDICARE, MEDICAID, SELFPAY ==
[2023-07-15 14:37] VITALS: BP 142/68; PULSE 65; TEMP 35.9; O2SAT 96; BMI 31.2
--- NOTE | 2023-07-15 14:37 | MHC.OFFVIS ---
Intake Vital Signs 07/15/23 14:37 Height 5 ft 3 in Weight 175 lb 14.862 oz BMI 31.2 BP 142/68 H Blood Pressure Location Rt brachial Position Sitting Pulse 65 Pulse Source Pulse Oximeter Temp 96.6 F L Temp Source Skin Pulse Oximetry (%) 96 Oxygen Delivery Method Room Air Intake Visit Reasons: July 2023-RA with SULFUR BURNER Intake Note: Patient last seen 02/09/[address] Jacobo, presents today for follow up and test results. Was sick back in April negative for covid.. reports chest tightness still. 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 Alarcon 68 yoF returns for evaluation of her rheumatoid arthritis and osteoarthritis. She remains on Enbrel 50 mg once a week. Her right total knee replacement last fall continues to do well. However now with walking more she is having more left hip symptoms. Pain is occurring with prolonged walking or standing. It is located anteriorly and laterally in the left hip. She does not seem to have much discomfort there at night. There is occasional low back pain. She was given some Celebrex for that with modest improvement but does not think it is enough to bother taken and another pill. 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 Seropositive rheumatoid arthritis Coronary arteriosclerosis Surgical History Hx of total knee replacement (06/22/22) Hx of bilateral cataract extraction Hx of colonoscopy History of back surgery Status post coronary artery bypass graft History of thyroid surgery Family History Mother HTN (hypertension) Social History Are you a primary memory care director to a significant other at home: No Do you presently have visiting nurse or other home services: No Alcohol intake: current Alcohol intake frequency: holidays/special occasions only Alcohol type: wine Comment: bathroom only, aware of trip hazards Patient Tobacco Use Status: Former Tobacco user Quit Date: Tobacco use type: Cigarette Years Smoked: 10 +/- Female Reproductive History Menstrual Age of Menarche: 12 Review of Systems Const All systems reviewed & are unremarkable except as noted in HPI and below Physical Exam Vital Signs: Last Vital Signs Temp 96.6 F L 07/15/23 14:37 Pulse 65 07/15/23 14:37 BP 142/68 H 07/15/23 14:37 Pulse Ox 96 07/15/23 14:37 Oxygen Delivery Method Room Air 07/15/23 14:37 BMI result Body Mass Index 31.2 APPEARANCE: Patient in no acute distress, groomed, nourished HEART:? Regular rhythm, S1-S2 heard, no murmurs, rubs or gallops. LUNG:? Clear to percussion and auscultation EXTREMITIES: There is trace ankle and pedal edema on the right lower extremity. The skin has some small areas of induration but no tenderness or breaks in the skin. She says this had developed after her knee replacement. There is no calf tenderness. SKIN: Some venous stasis changes in the lower leg on the right. JOINT EXAM: Cervical Spine: Full range of motion without pain; no tenderness. Thoracic Spine:?? No tenderness on palpation. Lumbar Spine: Alignment normal.? Full range of motion without pain, no tenderness. Hands:? LEFT: Normal pain-free range of motion without tenderness, swelling, increased warmth or erythema. Able to make a full fist and has a good supervisor wrapping room strength. ? RIGHT: Normal pain-free range of motion.? There is slight tenderness without swelling of the 3rd MCP. There is some minimal bony enlargement without tenderness at the thumb IP. Other joints have no tenderness, swelling, increased warmth or erythema. Able to make a full fist and has a good supervisor wrapping room strength. Wrists:? LEFT: Normal pain-free range of motion.? No tenderness, swelling, increased warmth or erythema.? RIGHT:? Mild discomfort with extremes of 75 degrees flexion or extension. Slight dorsal tenderness but no swelling, increased warmth or erythema. Elbows: LEFT: Normal pain-free range of motion without tenderness, swelling, increased warmth or erythema. ? RIGHT:? Normal range of motion without tenderness, swelling, increased warmth or erythema. Shoulders:? Full range of motion without pain. No tenderness, weakness, swelling, increased warmth or erythema. Hips:? LEFT:? There is mild groin pain with abduction at 15 degrees or rotation externally at 15 degrees. She is unable to allow internal rotation. There is no mass or tenderness in the groin.? No swelling, erythema, ecchymosis, or warmth noted. ? RIGHT:? Full range of motion without tenderness, swelling, increased warmth or erythema. Hip Bursa:? No tenderness bilaterally. Knees:?? LEFT: Normal pain-free range of motion without tenderness, swelling, increased warmth or erythema.? There is no effusion or crepitation ? RIGHT:? Pain-free range of motion.? Well-healed anterior scar from knee replacement. No areas of tenderness, swelling, effusion, or erythema.? Ankles:? Full range of motion, no tenderness, swelling, or erythema. Feet: Left: Slight 1st MTP bony enlargement with minimal hallux valgus deformity. No tenderness. No other areas of swelling or tenderness. Right: Full range of motion, no tenderness, swelling or erythema ?? 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 Humira January 2019 - October 2019 Methotrexate October 2018-September 2020-self stopped Xeljanz October 2019- September 2020- self stopped Kevzara- September 2020- October 2021- active disease on exam Actemra- October 2021- January 2022-low WBC, PLTS and absolute neutraphils Code(s): M05.9 - Rheumatoid arthritis with rheumatoid factor, unspecified Plan #SeroPos Rheumatoid arthritis: Ms. Morton 68yoF with RA which seems to be adequately managed on Enbrel 50mg QW. There is no synovitis on PE today. She experiences intermittent hand pain and Hip pain that is likely OA. However, I told patient that should it become chronic with swelling, it may be worth it to add low dose Leflunomide and reassess if this is active RA. #OA Left Hip: She continues with intermittent left hip joint pain. Radiographs from 2 years ago did indicate some degree of osteoarthritis. I think she is more symptomatic with the hip now that she can walk more with the relief of symptoms from the right knee pain. I discussed at length with patient that OA pain will not be relieved by the Enbrel so it is important to understand this concept in order not to render the medication as ineffective. She does say that Tylenol improves her hip so she can continue to use as needed. #Food Beverage Manager Use: Her labs are grossly normal and so we will continue with the Enbrel. We reiterated that patient knows to stop Enbrel if she develops a fever or has an infection, or has a wound that will not heal. We will continue to monitor labs for blood dyscrasias. A follow-up in about 4 months is recommended. She returns from [place] at that time. I spent 30 minutes reviewing record, evaluating patient and dosumenting. Orders: Orders Erythrocyte Sedimentation Rate 4 Months M05.9 - Rheumatoid arthritis with rheumatoid factor, unspecified, Z79.60 - termite exterminator (current) use of unspecified immunomodulators and immunosuppressants C Reactive Protein 4 Months M05.9 - Rheumatoid arthritis with rheumatoid factor, unspecified, Z79.60 - shelter (current) use of unspecified immunomodulators and immunosuppressants Complete Blood Count Auto Diff 4 Months M05.9 - Rheumatoid arthritis with rheumatoid factor, unspecified, Z79.60 - termite exterminator (current) use of unspecified immunomodulators and immunosuppressants, Z79.899 - Other fdc (current) drug therapy Comprehensive Met. Panel 4 Months M05.9 - Rheumatoid arthritis with rheumatoid factor, unspecified, Z79.60 - termite exterminator (current) use of unspecified immunomodulators and immunosuppressants Coding Level of Care Code Est Pt Level 3 (36271) Diagnoses Primary osteoarthritis of left hip M16.12 Osteoarthritis type: primary shelter use of drug Z79.899 Seropositive rheumatoid arthritis M05.9
== END 2023-07-15 15:14 | disposition home or self-care (01) ==
PROVIDERS: PCP Internal Medicine; Visit Provider Nurse Practitioner Family
DX: M05.79 Rheumatoid arthritis with rheumatoid factor of multiple sites without organ or systems involvement (principal); M16.12 Unilateral primary osteoarthritis, left hip; Z79.899 Other long term (current) drug therapy
CPT/HCPCS: 99214

== ENCOUNTER → 2023-07-15 14:35 | Outpatient (BNVA) | payer MEDICARE, MEDICAID, SELFPAY | PROVIDERS: PCP Internal Medicine; Visit Provider Nurse Practitioner Family | DX: M05.9 Rheumatoid arthritis with rheumatoid factor, unspecified (principal); M16.12 Unilateral primary osteoarthritis, left hip; Z79.899 Other long term (current) drug therapy | CPT/HCPCS: 99212 ==

== ENCOUNTER 2023-10-03 10:27 | Outpatient (REF) | payer MEDICARE, MEDICAID, SELFPAY ==
[2023-10-03 10:39] LABS: MANUAL DIFF FLAG NO
[2023-10-03 11:04] LABS: Basophils Absolute Auto 0.1 X10*3/uL (0.0-0.2); Basophils Percent Auto 0.9 % (0-2); Eosinophils Absolute Auto 0.1 X10*3/uL (0.0-0.4); Eosinophils Percent Auto 1.9 % (0-4); Hematocrit 42.7 % (37.0-47.0); Hemoglobin 14.2 g/dl (12.0-16.0); Imm Gran Abs Auto 0.01 X10*3/uL (0.00-0.03); Imm Gran Pct Auto 0.1 % (0.0-0.4); Lymphocytes Absolute Auto 3.8 X10*3/uL (1.2-4.9); Lymphocytes Percent Auto 54.5 % (20-40); Mean Corpuscular HGB Conc 33.3 g/dl (31.0-35.0); Mean Corpuscular Hemoglobin 28.2 pg (27.0-33.0); Mean Corpuscular Volume 84.7 fL (80.0-98.0); Mean Platelet Volume 10.7 fL (9.4-12.3); Monocytes Absolute Auto 0.8 X10*3/uL (0.1-1.2); Monocytes Percent Auto 11.4 % (2-11); Neutrophils Absolute Auto 2.2 x10*3/uL (2.0-8.3); Neutrophils Percent Auto 31.2 % (45-73); Platelet Count 254 X10*3/uL (160-400); Red Blood Count 5.04 X10*6/uL (4.20-5.50); Red Cell Distribution Width 13.2 % (11.0-16.0); White Blood Count 6.9 X10*3/uL (4.8-10.8)
[2023-10-03 11:09] LABS: Appearance Urine Cloudy; Color Urine Yellow; Glucose Urine UA Negative (Negative); Leukocyte Esterase Urine Small (1+) (Negative); Nitrite Urine Negative (Negative); PH 5.5 (5.0-9.0); Specific Gravity - Urine >= 1.030 (1.005-1.025); UMIC TRIGGER UACC YES; Urine Blood Trace (Negative); Urine Ketones Negative (Negative); Urine Protein Negative (Neg-Trace)
[2023-10-03 11:21] LABS: Estimated Average Glucose 103 mg/dL; Hemoglobin A1c % 5.2 % (<6.0)
[2023-10-03 11:24] LABS: Bacteria Urine None Seen (None Seen); Calcium Oxalate Crystals Urine Present; Hyaline Casts Urine 0-2 /LPF (0-2); Squamous Epithelial Cell Urine 0-2 /HPF (0-2); UACC Culture Trigger YES
[2023-10-03 11:43] LABS: Alanine Aminotransferase 16 U/L (0-31); Albumin Level 4.1 g/dL (3.5-5.0); Alkaline Phosphatase 119 U/L (39-117); Anion Gap 9 (12-20); Aspartate Amino Transferase 15 U/L (5-31); Bilirubin Total 0.8 mg/dL (0.0-1.0); Blood Urea Nitrogen 23 mg/dL (9-16); Calcium 9.1 mg/dL (8.4-10.2); Carbon Dioxide 28 mmol/L (22-29); Chloride 110 mmol/L (96-108); Cholesterol 120 mg/dL (<200); Estimated Glomerular Filt Rate > 60; Glucose Fasting 110 mg/dL (60-99); HDL Cholesterol 36 mg/dL (>40); LDL Cholesterol Calculated 56 mg/dL (<100); Potassium 4.1 mmol/L (3.3-5.1); Sodium 143 mmol/L (135-145); TSH reflex Free T4 0.95 uIU/mL (0.32-4.0); Total Protein 7.3 g/dL (6.5-8.0); Triglycerides 142 mg/dL (<150)
[2023-10-03 12:02] LABS: Creatinine Urine 157.12 mg/dL; Microalbum/Creatinine Ratio Ur 16.5 ug/mg cr (<30)
== END 2023-10-03 10:28 | disposition home or self-care (01) ==
LOC: HO.LNP 10:27
PROVIDERS: Visit Provider Internal Medicine
DX: D72.820 Lymphocytosis (symptomatic) (principal); I11.0 Hypertensive heart disease with heart failure; I50.22 Chronic systolic (congestive) heart failure; E04.9 Nontoxic goiter, unspecified; E78.00 Pure hypercholesterolemia, unspecified; R82.90 Unspecified abnormal findings in urine
CPT/HCPCS: 80053; 80061; 81001; 82043; 82570; 83036; 84443; 85025; 87086

== ENCOUNTER 2023-10-04 08:10 | Outpatient (AMB) | payer MEDICARE, MEDICAID, SELFPAY ==
[2023-10-04 08:19] VITALS: BP 160/78; BMI 31.9
--- NOTE | 2023-10-04 08:19 | A.OFFVIS_ITS ---
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 Seropositive rheumatoid arthritis Coronary arteriosclerosis Surgical History Hx of total knee replacement (06/22/22) Hx of bilateral cataract extraction Hx of colonoscopy History of back surgery Status post coronary artery bypass graft History of thyroid surgery Family History Mother HTN (hypertension) Social History Are you a primary hospice care consultant to a significant other at home: No Do you presently have visiting nurse or other home services: No Alcohol intake: current Alcohol intake frequency: holidays/special occasions only Alcohol type: wine Comment: bathroom only, aware of trip hazards Patient Tobacco Use Status: Former Tobacco user Quit Date: Tobacco use type: Cigarette Years Smoked: 10 +/- Female Reproductive History Menstrual Age of Menarche: 12 Total pregnancies: 2 Full term: 1 Number of Living Children: 1 Date of last pap smear: 09/01/22 (neg pap and hpv) Date of Mammogram: 03/10/23 Review of Systems Const All systems reviewed & are unremarkable except as noted in HPI and below Card Reports as per HPI Resp Reports as per HPI GI Reports as per HPI and Reports no additional complaints Reports as per HPI Physical Exam Vital Signs: BMI result Body Mass Index 31.9 Const General: cooperative, healthy appearing and comfortable Chest Chest palpation & inspection: normal inspection of the chest and normal palpation of entire chest wall Breast/axilla inspection: normal inspection of the breasts and normal inspection of the axillae Breast/axilla palpation: normal palpation of the breasts, normal palpation of the axillae and no axillary lymphadenopathy Resp Effort & Inspection: normal respiratory effort Auscultation: clear to auscultation bilaterally Percussion: percussion normal Cardio Palpation: normal PMI Rate: regular rate Rhythm: regular rhythm Heart sounds: no murmurs and no rubs Peripheral pulses: Peripheral pulses 2+ throughout GI Inspection: Yes normal to inspection Palpation (GI): Soft to palpation, nontender, no guarding, not rigid and No hepatosplenomegaly present Percussion: Yes normal to percussion Auscultation: normal bowel sounds Rectal Exam - Female: deferred General: Yes bladder normal to palpation External Female Exam: No lesion Speculum Exam - Vagina: normal appearance of the vagina, normal palpation, normal vaginal discharge, not erythematous and other (Cystocele bilateral paravaginal defects) Speculum Exam - Cervix: normal appearance of the cervix and normal palpation Bimanual exam- vagina & uterus: normal bimanual exam, normal palpation, uterine size normal, bladder normal to palpation, consistency normal and normal palpation Bimanual Exam- Adnexa, other: normal adnexae, no masses and no tenderness Assessment & Plan Assessment & Plan (1) Well woman exam: Code(s): Z01.419 - Encounter for gynecological examination (general) (routine) without abnormal findings Plan: Co testing not indicated since the patient 's age is above 65 with no history of abnormal Pap smears last 25 years. Counseled the patient about the recommended dietary allowance of 1200 mg of Calcium & 800 IU of vitamin D. Instructions given the patient to schedule next screening Mammogram in 03/20. Will order DEXA scan . The patient was instructed to perform monthly self-breast exams and to schedule a 2 week DEXA scan follow-up appointment and an annual exam in a year; All questions answered and the patient verbalized understanding. (2) Cystocele and rectocele with incomplete uterovaginal prolapse: Comment: Bilateral paravaginal defects and mild rectocele Code(s): N81.2 - Incomplete uterovaginal prolapse Plan: Discussed with the patient the finding on pelvic exam and options of treatment including expectant management, pessary and surgical management. All pros and cons, risks and benefits of each were discussed with the patient, the patient will think about it and get back to us Orders: Orders XR DEXA axial skeleton Today Z78.0 - Asymptomatic menopausal state Coding Level of Care Code Est Pt Prev Care >65y(95867) Diagnoses Well woman exam Z01.419 Cystocele and rectocele with incomplete uterovaginal prolapse N81.2
== END 2023-10-04 08:38 | disposition home or self-care (01) ==
LOC: HO.HWS 08:10
PROVIDERS: PCP Internal Medicine; Visit Provider Obstetrics & Gynecology
DX: N81.2 Incomplete uterovaginal prolapse (principal)
CPT/HCPCS: 99214

== ENCOUNTER → 2023-10-04 08:10 | Outpatient (BNVA) | payer MEDICARE, MEDICAID, SELFPAY | PROVIDERS: PCP Internal Medicine; Visit Provider Obstetrics & Gynecology | DX: Z01.419 Encounter for gynecological examination (general) (routine) without abnormal findings (principal); N81.2 Incomplete uterovaginal prolapse | CPT/HCPCS: 99212 ==

== ENCOUNTER 2023-10-24 10:53 | Outpatient (REF) | payer MEDICARE, MEDICAID, SELFPAY ==
[2023-10-24 12:15] LABS: Appearance Urine Cloudy; Color Urine Yellow; Glucose Urine UA Negative (Negative); Leukocyte Esterase Urine Large (3+) (Negative); Nitrite Urine Negative (Negative); PH 6.5 (5.0-9.0); UMIC TRIGGER UACC YES; Urine Blood Trace (Negative); Urine Ketones Negative (Negative); Urine Protein Negative (Neg-Trace)
[2023-10-24 12:23] LABS: Bacteria Urine 2+ (None Seen); Hyaline Casts Urine 0-2 /LPF (0-2); UACC Culture Trigger YES
== END 2023-10-24 10:54 | disposition home or self-care (01) ==
LOC: HO.LNP 10:53
PROVIDERS: Visit Provider Internal Medicine
DX: R31.9 Hematuria, unspecified (principal)
CPT/HCPCS: 81001; 87086

== ENCOUNTER 2023-11-02 10:18 | Outpatient (AMB) | payer MEDICARE, OTHER, MEDICAID, SELFPAY ==
[2023-11-02 10:07] VITALS: BP 140/80; PULSE 70; BMI 32.4
--- NOTE | 2023-11-02 10:07 | MHC.OFFVIS ---
Vital Signs 11/02/23 10:07 Height 5 ft 3 in Weight 182 lb 15.739 oz BMI 32.4 BP 140/80 H Blood Pressure Location Lt brachial Position Sitting Pulse 70 Pulse Source Monitor Intake Visit Reasons: 1 year follow up Air Pollution Specialist Required: No Accompanied by: Self / Same As Patient Allergies No Known Allergies [No Known Allergies*] Allergy (Verified 10/04/23 08:20) Medication List - Last Reconciled 11/02/23 by Hernan Arriaga MD acetaminophen 650 mg PO Q6H PRN amlodipine 2.5 mg PO DAILY aspirin (Adult Low Dose Aspirin) 81 mg PO DAILY atorvastatin 80 mg PO BEDTIME calcium carbonate-vitamin D3 500 mg-5 mcg (200 unit) 1 tab PO DAILY etanercept 50 mg subcut QWEEK furosemide (Lasix) 20 mg PO DAILY levothyroxine 112 mcg PO MOTUWETHFRSA metoprolol tartrate 50 mg PO BID 90 days omeprazole 20 mg PO DAILY HPI Comments Details: Selene returns for follow-up regarding coronary disease and bypass surgery. She states that she is doing okay. No complaints like angina or shortness of breath or in fact any concerns from cardiac. Getting okay. 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 Seropositive rheumatoid arthritis Coronary arteriosclerosis Surgical History Hx of total knee replacement (06/22/22) Hx of bilateral cataract extraction Hx of colonoscopy History of back surgery Status post coronary artery bypass graft History of thyroid surgery Family History Mother HTN (hypertension) Social History (Updated 11/02/23 @ 10:47 by Marlee Kline) Are you a primary nurse care manager to a significant other at home: No Do you presently have visiting nurse or other home services: No Alcohol intake: current Alcohol intake frequency: holidays/special occasions only Alcohol type: wine Comment: bathroom only, aware of trip hazards Patient Tobacco Use Status: Never used Tobacco Female Reproductive History Menstrual Age of Menarche: 12 Review of Systems Const Denies chills, Denies fatigue, Denies fever(s), Denies frequent falls, Denies weakness, Denies weight gain and Denies weight loss ENT Denies dizziness Card Denies chest pain, Denies leg edema, Denies lightheadedness, Denies palpitations, Denies dyspnea and Denies dyspnea on exertion Resp Denies cough, Denies dyspnea and Denies dyspnea on exertion GI Denies hematochezia Musc Denies abnormal gait, Denies muscle weakness, Denies numbness, Denies radiating pain into limb and Denies tingling Neuro Denies abnormal gait, Denies dizziness, Denies frequent falls, Denies numbness, Denies tingling and Denies weakness Endo Denies fatigue and Denies palpitations Physical Exam Vital Signs: Last Vital Signs Pulse 70 11/02/23 10:07 BP 140/80 H 11/02/23 10:07 BMI result Body Mass Index 32.4 Const General: comfortable and no acute distress Orientation/consciousness: patient oriented x3 HEENT Other: Unremarkable Head: Yes normal to inspection Neck Neck: Yes normal visual inspection Chest Chest palpation & inspection: normal inspection of the chest Resp Auscultation: clear to auscultation bilaterally Cardio Palpation: normal PMI Heart sounds: S1 normal heart sound present, S2 normal heart sound present, no gallops, Murmur heart sound present systolic II/ and at the apex and no rubs GI Palpation (GI): Soft to palpation Back/Spine/Pelvis Other: unremarkable Skin General skin exam: no rashes or lesions noted Neuro General: patient oriented x3 Extrem General: Yes normal to inspection Psych Mental Status: mental status grossly normal Office Procedures EKG Details: EKG with sinus rhythm at 70/Min; old inferior infarct; right atrial enlargement; slight ST depression in anterior leads with evidence of subtle T inversions V1 to V3. Anterior changes slightly more prominent than in a prior EKG from 2020. [id number], Complete Assessment & Plan Assessment & Plan (1) Atherosclerotic cardiovascular disease: Code(s): I25.10 - Atherosclerotic heart disease of [place] coronary artery without angina pectoris Category: Medical Plan: EKG shows some changes but clinically she is got absolutely no angina. Suspect EKG findings could be related to hypertension. In the absence of any symptoms, continue aspirin and statins. (2) Non-rheumatic mitral regurgitation: Code(s): I34.0 - Nonrheumatic mitral (valve) insufficiency Category: Medical Plan: [id number] mitral regurgitation on the echocardiogram likely related to underlying wall motion abnormality findings. No specific management. (3) Essential hypertension: Code(s): I10 - Essential (primary) hypertension Category: Medical Plan: Blood pressure is slightly high. Recommend adding amlodipine 2.5 mg daily. If she indeed does manage to lose weight, then we can reassess. Suspect hypertension is probably contributing to the EKG changes. (4) Leg edema: Code(s): R60.0 - Localized edema Category: Medical Plan: Likely multifactorial. On low-dose Lasix. No changes. Medications: New etanercept 50 mg subcut QWEEK 4 mL 0RF Hernan Arriaga MD amlodipine 2.5 mg PO DAILY 90 tabs 3RF Hernan Arriaga MD calcium carbonate-vitamin D3 500 mg-5 mcg (200 unit) 1 tab PO DAILY 30 tabs 0RF Hernan Arriaga MD Changed From acetaminophen 650 mg (2 x 325 mg) PO Q6H PRN 240 tabs 0RF Pain, Mild (Pain Scale 1-3) 30 days To acetaminophen 650 mg PO Q6H PRN Ekaterina Walker PA-C Coding Level of Care Code Est Pt Level 4 (17373) Diagnoses Atherosclerotic cardiovascular disease I25.10 Non-rheumatic mitral regurgitation I34.0 Essential hypertension I10 Leg edema R60.0 CPT Codes EKG - CPT: 09720-[id number], Complete ([id number])
== END 2023-11-02 10:58 | disposition home or self-care (01) ==
PROVIDERS: PCP Internal Medicine; Visit Provider Internal Medicine
DX: I25.10 Atherosclerotic heart disease of native coronary artery without angina pectoris (principal); I34.0 Nonrheumatic mitral (valve) insufficiency; I10 Essential (primary) hypertension; R60.0 Localized edema
CPT/HCPCS: 93010; 99214

== ENCOUNTER → 2023-11-02 10:18 | Outpatient (BNVA) | payer MEDICARE, MEDICAID, OTHER, SELFPAY | PROVIDERS: Visit Provider Internal Medicine | DX: I34.0 Nonrheumatic mitral (valve) insufficiency (principal); I25.10 Atherosclerotic heart disease of native coronary artery without angina pectoris; I10 Essential (primary) hypertension; R60.0 Localized edema; Z95.1 Presence of aortocoronary bypass graft; Z79.60 Long term (current) use of unspecified immunomodulators and immunosuppressants; Z79.631 Long term (current) use of antimetabolite agent | CPT/HCPCS: 93005; 99212 ==

== ENCOUNTER 2023-11-11 11:35 | Outpatient (REF) | payer MEDICARE, MEDICAID, OTHER, SELFPAY ==
[2023-11-11 12:09] LABS: Appearance Urine Clear; Color Urine Yellow; Glucose Urine UA Negative (Negative); Leukocyte Esterase Urine Large (3+) (Negative); Nitrite Urine Negative (Negative); Specific Gravity - Urine 1.015 (1.005-1.025); UMIC TRIGGER UACC YES; Urine Blood Negative (Negative); Urine Ketones Negative (Negative); Urine Protein Negative (Neg-Trace)
[2023-11-11 12:28] LABS: Bacteria Urine 1+ (None Seen); Hyaline Casts Urine 0-2 /LPF (0-2); RBC Urine 0-2 /HPF (0-2); UACC Culture Trigger YES; WBC Urine 0-5 /HPF (0-5)
== END 2023-11-11 11:36 | disposition home or self-care (01) ==
LOC: HO.LNP 11:35
PROVIDERS: Visit Provider Internal Medicine
DX: R31.9 Hematuria, unspecified (principal)
CPT/HCPCS: 81001; 87086

== ENCOUNTER 2024-01-23 08:38 | Outpatient (REF) | payer MEDICARE, MEDICAID, OTHER, SELFPAY ==
[2024-01-23 08:57] LABS: MANUAL DIFF FLAG NO
[2024-01-23 09:40] LABS: Basophils Absolute Auto 0.1 X10*3/uL (0.0-0.2); Basophils Percent Auto 1.1 % (0-2); Eosinophils Absolute Auto 0.2 X10*3/uL (0.0-0.4); Eosinophils Percent Auto 2.8 % (0-4); Imm Gran Abs Auto 0.01 X10*3/uL (0.00-0.03); Imm Gran Pct Auto 0.2 % (0.0-0.4); Lymphocytes Absolute Auto 3.3 X10*3/uL (1.2-4.9); Lymphocytes Percent Auto 53.9 % (20-40); Mean Corpuscular HGB Conc 33.3 g/dl (31.0-35.0); Mean Corpuscular Hemoglobin 28.2 pg (27.0-33.0); Mean Corpuscular Volume 84.5 fL (80.0-98.0); Mean Platelet Volume 10.4 fL (9.4-12.3); Monocytes Absolute Auto 0.4 X10*3/uL (0.1-1.2); Monocytes Percent Auto 6.8 % (2-11); Neutrophils Absolute Auto 2.2 x10*3/uL (2.0-8.3); Neutrophils Percent Auto 35.2 % (45-73); Platelet Count 211 X10*3/uL (160-400); Red Blood Count 4.97 X10*6/uL (4.20-5.50); Red Cell Distribution Width 13.4 % (11.0-16.0); White Blood Count 6.1 X10*3/uL (4.8-10.8)
[2024-01-23 09:59] LABS: Alanine Aminotransferase 12 U/L (0-31); Albumin Level 3.9 g/dL (3.5-5.0); Alkaline Phosphatase 113 U/L (39-117); Anion Gap 13 (12-20); Aspartate Amino Transferase 15 U/L (5-31); Bilirubin Total 0.7 mg/dL (0.0-1.0); Blood Urea Nitrogen 20 mg/dL (9-16); C Reactive Protein 0.22 mg/dL (< or = 0.50); Calcium 8.9 mg/dL (8.4-10.2); Carbon Dioxide 22 mmol/L (22-29); Chloride 110 mmol/L (96-108); Estimated Glomerular Filt Rate > 60; Glucose Random 139 mg/dL (60-115); Sodium 141 mmol/L (135-145); Total Protein 6.8 g/dL (6.5-8.0)
[2024-01-23 11:14] LABS: Erythrocyte Sedimentation Rate 2 MM/HR (0-20)
== END 2024-01-23 08:39 | disposition home or self-care (01) ==
LOC: HO.LAB 08:38
PROVIDERS: PCP Internal Medicine; Visit Provider Nurse Practitioner Family
DX: M05.9 Rheumatoid arthritis with rheumatoid factor, unspecified (principal); Z79.60 Long term (current) use of unspecified immunomodulators and immunosuppressants; Z79.899 Other long term (current) drug therapy
CPT/HCPCS: 36415; 80053; 85025; 85652; 86140

== ENCOUNTER 2024-01-24 08:19 | Outpatient (AMB) | payer MEDICARE, MEDICAID, OTHER, SELFPAY ==
--- NOTE | 2024-01-24 08:20 | MHC.OFFVIS ---
Vital Signs 01/24/24 08:23 Height 5 ft 3 in Weight 180 lb 5.41 oz BMI 31.9 BP 132/80 Blood Pressure Location Lt brachial Position Sitting Respiration 16 Pulse 54 Pulse Source Pulse Oximeter Pulse Oximetry (%) 98 Oxygen Delivery Method Room Air Intake Visit Reasons: RA/CM Intake Note: Patient presents for RA. Allergies No Known Allergies [No Known Allergies*] Allergy (Verified 01/24/24 08:23) Medication List - Last Reconciled 01/24/24 by Rosendo Conway MD acetaminophen 650 mg PO Q6H PRN amlodipine 2.5 mg PO DAILY aspirin (Adult Low Dose Aspirin) 81 mg PO DAILY atorvastatin 80 mg PO BEDTIME calcium carbonate-vitamin D3 500 mg-5 mcg (200 unit) 1 tab PO DAILY Enbrel SureClick (etanercept) 50 mg subcut QWEEK NS furosemide (Lasix) 20 mg PO DAILY levothyroxine 112 mcg PO MOTUWETHFRSA metoprolol tartrate 50 mg PO BID 90 days omeprazole 20 mg PO DAILY HPI Comments Details: This is a 68-year-old female with seropositive RA on Enbrel and osteoarthritis who presents for follow-up. She states that she feels a little bit worse overall. She feels that Enbrel works well for 1-2 days then she starts having joint pain and stiffness. The majority of her pains are in her lower back, left hip, her left heel with walking, she also has neck pain that radiates to her head. Pain is generally worse with walking and activities. 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 Seropositive rheumatoid arthritis Coronary arteriosclerosis Surgical History Hx of total knee replacement (06/22/22) Hx of bilateral cataract extraction Hx of colonoscopy History of back surgery Status post coronary artery bypass graft History of thyroid surgery Family History Mother HTN (hypertension) Social History Are you a primary director of managed care to a significant other at home: No Do you presently have visiting nurse or other home services: No Alcohol intake: current Alcohol intake frequency: holidays/special occasions only Alcohol type: wine Comment: bathroom only, aware of trip hazards Patient Tobacco Use Status: Never used Tobacco Female Reproductive History Menstrual Age of Menarche: 12 Review of Systems ENT Reports neck pain Musc Reports back pain, Reports arthralgias, Denies joint swelling, Reports neck pain and Reports stiffness Physical Exam Vital Signs: Last Vital Signs Pulse 54 01/24/24 08:23 Resp 16 01/24/24 08:23 BP 132/80 01/24/24 08:23 Pulse Ox 98 01/24/24 08:23 Oxygen Delivery Method Room Air 01/24/24 08:23 BMI result Body Mass Index 31.9 Const General: cooperative, healthy appearing and comfortable Nutritional Appearance: obese Orientation/consciousness: patient oriented x3 Limitations: no limitations HEENT Head: Yes normocephalic and Yes atraumatic Mouth: moist mucous membranes Resp Effort & Inspection: normal respiratory effort and able to speak in complete sentences Auscultation: clear to auscultation bilaterally Cardio Rate: regular rate Rhythm: regular rhythm Skin General skin exam: no rashes or lesions noted Neuro General: patient oriented x3 Extrem Other: No active synovitis Normal range of motion of hands, wrists, elbows and shoulders without pain Negative straight leg raise test bilaterally Negative Fabere test bilaterally No groin pain with foot inversion bilaterally No trochanteric bursa area tenderness Assessment & Plan Assessment & Plan (1) Seropositive rheumatoid arthritis: Comment: +RF++CCP dx 2016 Leflunomide 2016 Plaquenil 2017 Humira January 2019 - October 2019 Methotrexate October 2018-September 2020-self stopped Xeljanz October 2019- September 2020- self stopped Kevzara- September 2020- October 2021- active disease on exam Actemra- October 2021- January 2022-low WBC, PLTS and absolute neutraphils Enbrel September 2018-December 2018- restarted February 2022 (on Hold for right arthroplasty on Jun 22) restarted July 2022 effective Code(s): M05.9 - Rheumatoid arthritis with rheumatoid factor, unspecified Category: Medical Plan: This is a 68-year-old female with seropositive RA who presents for follow-up. On Enbrel 50 mg weekly. Doing well overall with no active synovitis. Inflammatory markers are normal. Patient's symptoms are likely degenerative and mechanical in nature Continue Enbrel 50 mg weekly Labs before next visit in 4 months (2) Long-term use of immunosuppressant medication: Code(s): Z79.60 - computer terminal operator (current) use of unspecified immunomodulators and immunosuppressants Category: Medical Plan: Side effects of Enbrel were discussed with the patient in detail including increased risk of infection, demyelinating disease, reactivation of latent TB, possible increased risk of solid and skin tumors. Patient fully aware. Advised patient to seek medical care [facility] if patient has an infection and advised patient to stop the medication until the infection is resolved. (3) Degenerative spinal arthritis: Code(s): M47.819 - Spondylosis without myelopathy or radiculopathy, site unspecified Category: Medical Plan: History of lumbar spine surgery more than 5 years ago, Multiple areas of pain including her neck, lower back radiating to the left lower extremity, symptoms provoked with activity. I suggested PT but patient stated that PT was not helpful in the past. She is agreeable for pain management evaluation Plan I spent 26 minutes reviewing patient's chart, evaluating patient, ordering diagnostic workup, counseling patient and documenting in the chart Orders: Orders Comprehensive Met. Panel 4 Months M05.9 - Rheumatoid arthritis with rheumatoid factor, unspecified, Z79.60 - custodial (current) use of unspecified immunomodulators and immunosuppressants Erythrocyte Sedimentation Rate 4 Months M05.9 - Rheumatoid arthritis with rheumatoid factor, unspecified, Z79.60 - computer terminal operator (current) use of unspecified immunomodulators and immunosuppressants Complete Blood Count Auto Diff 4 Months M05.9 - Rheumatoid arthritis with rheumatoid factor, unspecified, Z79.60 - computer terminal operator (current) use of unspecified immunomodulators and immunosuppressants C Reactive Protein 4 Months M05.9 - Rheumatoid arthritis with rheumatoid factor, unspecified, Z79.60 - custodial (current) use of unspecified immunomodulators and immunosuppressants Hepatitis A,B,C Profile 4 Months Z11.59 - Encounter for screening for other viral diseases T Spot TB 4 Months Z11.7 - Encounter for testing for latent tuberculosis infection Referrals Pain Management Referral M47.819 - Spondylosis without myelopathy or radiculopathy, site unspecified Coding Level of Care Code Est Pt Level 4 (08801) Diagnoses Seropositive rheumatoid arthritis M05.9 Long-term use of immunosuppressant medication Z79.60 Degenerative spinal arthritis M47.819
[2024-01-24 08:23] VITALS: BP 132/80; PULSE 54; RESP 16; O2SAT 98; BMI 31.9
== END 2024-01-24 08:44 | disposition home or self-care (01) ==
PROVIDERS: PCP Internal Medicine; Visit Provider Student in an Organized Health Care Education/Training Program
DX: M05.79 Rheumatoid arthritis with rheumatoid factor of multiple sites without organ or systems involvement (principal); Z79.60 Long term (current) use of unspecified immunomodulators and immunosuppressants; M47.819 Spondylosis without myelopathy or radiculopathy, site unspecified
CPT/HCPCS: 99214

== ENCOUNTER → 2024-01-24 08:19 | Outpatient (BNVA) | payer MEDICARE, MEDICAID, OTHER, SELFPAY | PROVIDERS: PCP Internal Medicine; Visit Provider Student in an Organized Health Care Education/Training Program | DX: M05.9 Rheumatoid arthritis with rheumatoid factor, unspecified (principal); M47.816 Spondylosis without myelopathy or radiculopathy, lumbar region; Z79.60 Long term (current) use of unspecified immunomodulators and immunosuppressants; Z79.631 Long term (current) use of antimetabolite agent | CPT/HCPCS: 99212 ==

== ENCOUNTER 2024-02-03 08:51 | Outpatient (REF) | payer MEDICARE, OTHER, MEDICAID, SELFPAY ==
--- NOTE | ~2024-02-03 | XR_ITS ---
EXAMINATION: XR KNEE, LEFT CLINICAL INFORMATION: Pain COMPARISON: X-ray dated January 08, 2016 TECHNIQUE: Four views of the left knee. FINDINGS: No acute cortical disruption or gross malalignment. Joint space narrowing involving the medial and to a lesser extent lateral compartment. No lytic or blastic lesions. No joint effusion, suprapatellar bursa. 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 Electronically signed by: Mac Willson MD 04/27/2024 11:38 AM EDT
--- NOTE | ~2024-02-03 | XR_ITS ---
EXAMINATION: XR FOOT, LEFT CLINICAL INFORMATION: Pain COMPARISON: None available. TECHNIQUE: AP, lateral, and oblique views of the left foot. FINDINGS: Submitted for interpretation on April 27, 2024. No acute cortical disruption or malalignment. Degenerative changes in the first metatarsophalangeal joint. No lytic or blastic lesions. Small exostosis at the Achilles tendon insertion. XR/XR foot LT min 3V IMPRESSION: No acute fracture or dislocation. Electronically signed by: Mac Willson MD 04/27/2024 10:45 AM EDT
--- NOTE | ~2024-02-03 | XR_ITS ---
EXAMINATION: XR LUMBOSACRAL SPINE CLINICAL INFORMATION: Spondylosis, without myelopathy or radiculopathy. COMPARISON: MRI lumbar spine dated 07/07/20112011 lumbar spine radiographs dated 11/26/2010. TECHNIQUE: AP, bilateral oblique and lateral views of the lumbar spine were submitted, together with a lateral view of the lumbosacral junction. FINDINGS: There is bony demineralization. There is a transitional lumbar vertebra, with 6 nonrib-bearing lumbar-type vertebra. There is a moderately severe thoracolumbar rotatory levoscoliosis. There is mild posterior disc space narrowing at T12-L1 and L1-2. There is marked degenerative disc disease extending from L2-3 through the lumbosacral junction, with disc space narrowing and endplate arthropathy. Vacuum disc phenomenon is seen at L2-3 and L3-4. No acute fracture or spondylolisthesis is seen. The posterior elements are intact. No spondylolysis defect is seen on the oblique views. There is multi-level lumbar facet arthropathy. There are aortoiliac atherosclerotic calcifications. Pelvic phleboliths are seen. XR/XR lumbar spine 4V min IMPRESSION: 1. There is transitional anatomy of the lumbar spine. 2. There is multi-level degenerative disc disease and endplate and facet arthropathy. Degenerative disc disease is most severe at L2-3 through the lumbosacral junction. 3. There is a moderately severe thoracolumbar rotatory levoscoliosis. Electronically signed by: Jos Martínez MD 04/09/2024 08:40 AM EDT
== END 2024-02-03 08:52 | disposition home or self-care (01) ==
LOC: HO.XRAY 08:51
PROVIDERS: PCP Internal Medicine; Visit Provider Nurse Practitioner Family
DX: M47.819 Spondylosis without myelopathy or radiculopathy, site unspecified (principal); Z98.890 Other specified postprocedural states; M47.817 Spondylosis without myelopathy or radiculopathy, lumbosacral region; M25.562 Pain in left knee; M79.672 Pain in left foot
CPT/HCPCS: 72110; 73562; 73630; 99202

== ENCOUNTER 2024-02-03 08:51 | Outpatient (AMB) | payer MEDICARE, MEDICAID, SELFPAY ==
--- NOTE | 2024-02-03 08:53 | MHC.OFFVIS ---
Vital Signs 02/03/24 08:59 02/03/24 09:01 Height 5 ft 3 in Weight 180 lb BMI 31.9 BP 192/83 H 176/84 H Blood Pressure Location Lt brachial Rt brachial Position Sitting Sitting Pulse 72 Pulse Source Pulse Oximeter Pulse Oximetry (%) 97 Oxygen Delivery Method Room Air Comment bp recheck Intake Visit Reasons: Spondylosis without myelopathy or radiculopathy Intake Note: Pain today 02/03 Medical Technician Required: No Accompanied by: Self / Same As Patient Allergies No Known Allergies [No Known Allergies*] Allergy (Verified 01/24/24 08:23) HPI HPI Spondylosis without myelopathy or radiculopathy: Details: Patient is a 68 years old presents today with history of seropositive rheumatoid arthritis, h/o lumbar spine surgery in 2019, right TKA, presents today for initial evaluation of chronic low back pain with left sided radiculopathy. She also reports neck pain, right shoulder and left foot pain. Denies any recent trauma, injury or falls. Patient was referred to us by Rheumatology services. Patient reports she has previously received injections in her shoulder and knee at Orthopedics. Back pain is axial and also radiates into left thigh and left lateral lower extremity with tingling. She also reports anterior left knee pain and left medial heel pain with walking. Patient reports she goes to [place] for winter months which improves her multiple joint pain. No back pain in the morning. Back pain gradually increases with walking and bending. Pain affects her daily activities, functioning and mobility. Denies any fever, chills, abdominal or groin pain, bladder or bowel dysfunction or saddle anesthesia. Reports left lower extremity weakness with pain. Location: Low back pain radiates to left side, right shoulder, left foot Duration: Chronic pain for many years, worsening for past 6 months Characteristics of symptom or complaint: Shooting, numbness, throbbing, tingling, aching, heavy, radiating, cramping Aggravating or associated factors: Cold weather changes, movements, walking, climbing stairs Relieving factors: Heat/cold, prednisone prn, Tylenol Treatment: PT, HME, recumbent bike daily use, stretching exercises PFSH Medical History Long-term use of immunosuppressant medication Personal history of COVID-19 Hx of thyroid cancer Non-rheumatic mitral regurgitation Essential hypertension Atherosclerotic cardiovascular disease 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 Seropositive rheumatoid arthritis Coronary arteriosclerosis Surgical History Hx of total knee replacement (06/22/22) Hx of bilateral cataract extraction Hx of colonoscopy History of back surgery Status post coronary artery bypass graft History of thyroid surgery Family History Mother HTN (hypertension) Social History Are you a primary caregivers non medical to a significant other at home: No Do you presently have visiting nurse or other home services: No Alcohol intake: current Alcohol intake frequency: holidays/special occasions only Alcohol type: wine Comment: bathroom only, aware of trip hazards Patient Tobacco Use Status: Former Tobacco user Tobacco use type: Cigarette Female Reproductive History Menstrual Age of Menarche: 12 Review of Systems Const All systems reviewed & are unremarkable except as noted in HPI and below Physical Exam Vital Signs: Last Vital Signs Pulse 72 02/03/24 08:59 BP 176/84 H 02/03/24 09:01 Pulse Ox 97 02/03/24 08:59 Oxygen Delivery Method Room Air 02/03/24 08:59 BMI result Body Mass Index 31.9 General: Appears afebrile. Alert and oriented. Mood and affect appropriate. Follows and participates in conversation appropriately. Respiratory effort is unlabored. No cough. Able to transition from sit to stand unassisted. Uses cane with ambulation. Mildly antalgic gait with limping. Ambulates with bilaterally normal heel strike and toe off, reports LLE weakness with numbness General: Yes no CVA tenderness Back/Spine/Pelvis Other: Patient is able to walk and stand on heels and tip toes with moderate difficulty on the left due to left heel, knee and back pain otherwise demonstrating good motor tone. Can flex forward to 60-70 degrees and extend to 5-10 degrees before experiencing lumbar pain. Demonstrates 5/5 right and 4/5 left strength of quadriceps bilaterally as well as flexion/dorsiflexion of bilateral feet against resistance. 2+ pedal pulses bilaterally. Seated straight leg rise with dorsiflexion positive on the left. +1 patellar and diminished achilles reflexes bilaterally. Facet loading test positive bilaterally. Alcides sign +bilaterally, Nick?s, Gaenslen, Pelvic compression and Stinchfield tests are positive on the left. No groin pain with I/E hip rotations. Valsalva maneuver negative. Back: no CVA tenderness Cervical Spine: loss of normal cervical lordosis, cervical muscular tenderness and No Cervical spine tenderness Thoracic/Lumbar Spine: thoracic and lumbar spine normal to inspection, Thoracic/lumbar spine scar(s) (lower spine), thoraco-lumbar ROM normal, Lasegue's sign positive on the left and diffuse, pain with thoraco-lumbar ROM, paraspinal muscle tenderness, thoraco-lumbar ROM limited, No thoracic spinal tenderness and lumbar spinal tenderness at L4 and at L5 Pelvis: buttock tenderness on the left and no sciatic notch tenderness Sacroiliac joints: bilaterally (left>right) tender to palpation Extrem General: Yes capillary refill normal, Yes no clubbing, cyanosis or edema and Yes no calf tenderness Left lower extremity: knee (Limited ROM due to pain. +Crepitus with flexion.) Details: tenderness Location: of the medial joint line and of the lateral joint line; no swelling, no ecchymosis, no deformity and no unusual warmth and foot Details: tenderness Location: of the medial foot (medial heel), toes with normal ROM and no edema; no unusual warmth and no ecchymosis Assessment & Plan Assessment & Plan (1) Left knee pain: Code(s): M25.562 - Pain in left knee Category: Medical (2) History of lumbosacral spine surgery: Code(s): Z98.890 - Other specified postprocedural states Category: Surgical (3) Degenerative spinal arthritis: Code(s): M47.819 - Spondylosis without myelopathy or radiculopathy, site unspecified Category: Medical (4) Lumbosacral spondylosis: Code(s): M47.817 - Spondylosis without myelopathy or radiculopathy, lumbosacral region Category: Medical (5) Pain of left heel: Code(s): M79.672 - Pain in left foot Category: Medical (6) Left knee pain: Code(s): M25.562 - Pain in left knee Category: Medical (7) Degenerative spinal arthritis: Code(s): M47.819 - Spondylosis without myelopathy or radiculopathy, site unspecified Category: Medical (8) Lumbosacral spondylosis: Code(s): M47.817 - Spondylosis without myelopathy or radiculopathy, lumbosacral region Category: Medical (9) Left lumbar radiculopathy: Code(s): M54.16 - Radiculopathy, lumbar region Category: Medical Plan Lumbar spine imaging to assess stability, degree of degenerative changes, any subluxation, listhesis, compression fractures or pars defects. MRI of the lumbar spine to assess for neural integrity and compression to address left radiculopathy with positive SLR testing. Discussed interventional treatments for axial and left radicular low back pain. We will also obtain imaging of left knee and left foot pain prior to any further treatments. Briefly discussed gel vs cortisone injections, Sprint PNS trial and genicular RFA. All questions and concerns have been answered and patient agreed with the treatment plan. Patient will return to the clinic to discuss results of the MRI/xray findings when it is done and consider interventional therapy as indicated. Orders: Orders XR lumbar spine 4V min 02/03/24 M47.817 - Spondylosis without myelopathy or radiculopathy, lumbosacral region, M47.819 - Spondylosis without myelopathy or radiculopathy, site unspecified, Z98.890 - Other specified postprocedural states XR foot LT min 3V 02/03/24 M79.672 - Pain in left foot XR knee LT 3V 02/03/24 M25.562 - Pain in left knee MR lumbar spine wo con 02/03/24 M47.817 - Spondylosis without myelopathy or radiculopathy, lumbosacral region, M47.819 - Spondylosis without myelopathy or radiculopathy, site unspecified, M54.16 - Radiculopathy, lumbar region, Z98.890 - Other specified postprocedural states Coding Level of Care Code New Pt Level 4 (32864) Diagnoses Left knee pain M25.562 History of lumbosacral spine surgery Z98.890 Degenerative spinal arthritis M47.819 Lumbosacral spondylosis M47.817 Pain of left heel M79.672 Left lumbar radiculopathy M54.16
[2024-02-03 08:59] VITALS: BP 192/83; PULSE 72; O2SAT 97; BMI 31.9
[2024-02-03 09:01] VITALS: BP 176/84
== END 2024-02-03 09:45 | disposition home or self-care (01) ==
PROVIDERS: PCP Internal Medicine; Visit Provider Nurse Practitioner Family
DX: M25.562 Pain in left knee (principal); Z98.890 Other specified postprocedural states; M47.819 Spondylosis without myelopathy or radiculopathy, site unspecified; M47.817 Spondylosis without myelopathy or radiculopathy, lumbosacral region; M79.672 Pain in left foot; M54.16 Radiculopathy, lumbar region
CPT/HCPCS: 99204; 99214

== ENCOUNTER → 2024-02-03 09:54 | Outpatient (BNV) | payer MEDICARE, OTHER, MEDICAID, SELFPAY | PROVIDERS: PCP Internal Medicine; Visit Provider Radiology Diagnostic Radiology | DX: M25.562 Pain in left knee (principal) | CPT/HCPCS: 73562; 73630 ==

== ENCOUNTER 2024-03-14 19:47 | Outpatient (REF) | payer MEDICARE, MEDICAID, SELFPAY ==
--- NOTE | ~2024-03-14 | MR_ITS ---
EXAMINATION: MR LUMBAR SPINE WITHOUT CONTRAST CLINICAL INFORMATION: Back surgery 10 years ago. COMPARISON: None available. TECHNIQUE: MRI of the lumbar spine was obtained using routine sequences without contrast. FINDINGS: There is transitional anatomy. There are 5 nonrib-bearing lumbar-type vertebral bodies. S1 is lumbarized sharing severe disc volume loss with S2. There is a severe leftward convex scoliotic curvature of the lower lumbar spine with the apex at L4 where there is grade 1 left lateral listhesis at L4-L5. There is severe right-sided volume loss at L4-L5 and there is severe left-sided volume loss at L5-S1. There is moderate disc volume loss at L2-L3 and there is severe right-sided Loss of L3-L4. There are multilevel endplate osteophytes. Modic type I endplate signal changes at L3-L4 and L5-S1. No additional bone marrow edema. No acute fractures. Conus terminates at the L2 level. There is paraspinal muscular atrophy bilaterally. Sigmoid diverticulosis. At T11-T12, there is slight grade 1 anterolisthesis along with a diffuse annular disc bulge and ligamentum flavum thickening result in severe central canal stenosis, significant mass effect on the thoracic cord, and severe bilateral foraminal stenosis. L1-L2: A large right paracentral disc protrusion compresses the traversing right L2 nerve root the right subarticular zone and results in moderate central canal stenosis flattening of the cord. Disc osteophyte facet arthropathy results in mild bilateral foraminal encroachment. L2-L3: A left paracentral/left lateral disc protrusion results in left subarticular zone stenosis with mass effect on the traversing left L3 nerve root as well as moderate left-sided foraminal stenosis with mass effect on the exiting left L2 nerve root. Severe right-sided foraminal stenosis with compression of the exiting right L2 nerve. L3-L4: There is a background annular disc bulge and there is bilateral facet arthropathy and ligamentum flavum thickening. There is moderate central canal stenosis. Advanced facet arthropathy results in severe right-sided foraminal stenosis with compression of the exiting right L3 nerve root. L4-L5: there are laminectomy changes and spondylitic changes result in moderate central canal stenosis as well as severe left and moderate right foraminal stenosis with mass effect on the exiting left greater than right L4 nerve roots. There is clumping of the cauda equina nerve roots at this level that may be the sequela of adhesive arachnoiditis. L5-S1: There is grade 1 anterolisthesis with uncovering disc osteophyte and severe bilateral arthropathy. Left lateral disc osteophyte protrusion. Laminectomy changes. Findings in concert result in severe left subarticular zone stenosis with compression of the traversing left S1 nerve root as well as severe left and moderate right foraminal stenosis with compression of the exiting left nerve root. S1-S2: Diffuse disc osteophyte complex and bilateral facet arthropathy. Findings in concert result in severe bilateral foraminal stenosis with compression of the exiting nerve roots bilaterally. MR/MR lumbar spine wo con IMPRESSION: * There is transitional anatomy. There are 5 nonrib-bearing lumbar-type vertebral bodies. S1 is lumbarized sharing severe disc volume loss with S2. Please correlate with plain films prior to any percutaneous or surgical intervention. * There is a severe leftward convex scoliotic curvature of the lower lumbar spine superimposed on advanced multilevel degenerative disc disease and hypertrophic facet arthropathy. * At T11-T12, there is slight grade 1 anterolisthesis that along with additional spondylitic changes result in severe central canal stenosis, significant mass effect on the thoracic cord, and severe bilateral foraminal stenosis. * At L1-L2, a large right paracentral disc protrusion compresses the traversing right L2 nerve root the right subarticular zone and results in moderate central canal stenosis with flattening of the cord. * At L2-L3, a left paracentral/left lateral disc protrusion results in left subarticular zone stenosis with mass effect on the traversing left L3 nerve root as well as moderate left-sided foraminal stenosis with mass effect on the exiting left L2 nerve root. Severe right-sided foraminal stenosis with compression of the exiting right L2 nerve root. Mild to moderate central canal stenosis. * At L3-L4, Advanced facet arthropathy results in severe right-sided foraminal stenosis with compression of the exiting right L3 nerve root. Moderate central canal stenosis at this level. * At L4-L5, there are laminectomy changes and spondylitic changes result in moderate central canal stenosis as well as severe left and moderate right foraminal stenosis with mass effect on the exiting left greater than right L4 nerve roots. There is clumping of the cauda equina nerve roots at this level that may be the sequela of adhesive arachnoiditis. * At L5-S1, there are laminectomy changes and spondylitic changes results in severe left subarticular zone stenosis with compression of the traversing left S1 nerve root as well as severe left and moderate right foraminal stenosis with compression of the exiting left nerve root. There is clumping of the cauda equina nerve roots at this level that may be the sequela of adhesive arachnoiditis. * At S1-S2, spondylitic changes result in severe bilateral foraminal stenosis and compression of the exiting nerve roots bilaterally Electronically signed by: Irvin Mar MD 03/15/2024 10:01 AM EDT
== END 2024-03-14 19:48 | disposition home or self-care (01) ==
LOC: HO.MRI 19:47
PROVIDERS: PCP Internal Medicine; Visit Provider Nurse Practitioner Family
DX: M54.16 Radiculopathy, lumbar region (principal); M47.817 Spondylosis without myelopathy or radiculopathy, lumbosacral region; M47.819 Spondylosis without myelopathy or radiculopathy, site unspecified; Z98.890 Other specified postprocedural states
CPT/HCPCS: 72148

== ENCOUNTER 2024-03-16 08:19 | Outpatient (REF) | payer MEDICARE, MEDICAID, SELFPAY ==
--- NOTE | ~2024-03-16 | MM_ITS ---
EXAMINATION: MM SCREENING DIGITAL BREAST TOMOSYNTHESIS, BILATERAL CLINICAL INFORMATION: Screening. Asymptomatic. COMPARISON: Mammography: Comparison is made with available priors TECHNIQUE: Digital breast mammography with tomosynthesis is performed in both the craniocaudal and mediolateral oblique views along with computer-aided detection (CAD). FINDINGS: There are scattered areas of fibroglandular density (ACR BI-RADS breast composition Category b). There are no significant masses, abnormal calcifications, or other abnormalities. MM/MM tomosynthesis screening BI IMPRESSION: No mammographic evidence of malignancy. ASSESSMENT: BI-RADS BI-RADS 1 - Negative RECOMMENDATION: Routine annual mammography screening. 1 year F/U This examination should not preclude the clinical evaluation of a suspicious palpable abnormality. This patient's information was entered into a reminder system with a target due date for their next mammogram. Electronically signed by: Tonia Viera DO 03/28/2024 11:59 AM EDT
--- NOTE | ~2024-03-16 | MM_ITS ---
EXAMINATION: BONE DENSITOMETRY CLINICAL INDICATION: Menopause. COMPARISON: Previous BD dated 10/09/2021 and baseline BD dated 10/05/2016. TECHNIQUE: Using a TuTanda DXA System (software version: 13.1) manufactured by [employer], dual-energy x-ray absorptiometry was performed of the lumbar spine and left hip. The images are of good technical quality. Summary results are attached. FINDINGS: LEFT FEMUR, NECK: Current: BMD 1.145 g/cm2, Z-score 2.0, T-score 0.8, normal. Prior: BMD 0.923 g/cm2. Baseline: BMD 0.751 g/cm2. LEFT FEMUR, TOTAL: Current: BMD 0.838 g/cm2, Z-score -0.4, T-score -1.3, osteopenia, 14.2% increase from previous, 21.3% increase from baseline (<5% change is not significant). Prior: BMD 0.734 g/cm2. Baseline: BMD 0.691 g/cm2. AP SPINE L1-L2 (excluding L3 and L4): The data of L1-L4 has been changed to exclude the L3 and L4 vertebral bodies, because significant degenerative change at these levels may cause overestimation of lumbar spine density. Current: BMD 1.037 g/cm2, Z-score 0.0, T-score -1.1, osteopenia, 5.1% increase from previous, 11.9% increase from baseline (<5% change is not significant). Prior: BMD 0.987 g/cm2. Baseline: BMD 0.927 g/cm2. IDENTIFIED RISK FACTORS: Menopause, rheumatoid arthritis. HISTORY OF FRACTURE: None listed. MEDICATIONS: Calcium, vitamin D. MM/XR DEXA axial skeleton IMPRESSION: 1. DIAGNOSIS: Osteopenia based on the lowest T-score value of -1.3 in the total femur applying World Health Organization criteria. 2. 10-YEAR FRACTURE RISK PREDICTION, FRAX: Major osteoporotic fracture (clinical spine, forearm, hip or shoulder) 4.1%. Hip fracture 0.1%. 3. Treatment Recommendations: NOF guidelines recommend consideration for treatment in postmenopausal women and men age 50 and older presenting with the following: -A hip or vertebral (clinical or morphometric) fracture. -T-score less than or equal to -2.5 at the femoral neck or spine after appropriate evaluation to exclude secondary causes. -Low bone mass at the hip or spine and a 10-year fracture probability by FRAX of greater than or equal to 3% for hip fracture or greater than or equal to 20% for major osteoporotic fracture based on the [place] adapted WHO algorithm. 4. Other Recommendations: All treatment decisions require clinical judgment and consideration of individual patient factors, including patient preferences, comorbidities, previous drug use, risk factors not captured in the FRAX model (e.g. frailty, falls, vitamin D deficiency, increased bone turnover, interval significant decline in bone density) and possible under or overestimation of fracture risk by FRAX. Additional medical evaluation for secondary cause of low bone mineral density may be appropriate. FUTURE SCAN RECOMMENDATION: People with diagnosed cases of osteoporosis or at high risk for fracture should have regular bone mineral density tests. For patients eligible for Medicare, routine testing is allowed once every 2 years. The testing frequency can be increased to one year for patients who have rapidly progressing disease, those who are receiving or discontinuing medical therapy to restore bone mass, or have additional risk factors. Electronically signed by: Nelson Newby MD 04/03/2024 08:39 AM EDT [facility]
== END 2024-03-16 08:20 | disposition home or self-care (01) ==
LOC: HO.MAMMO 08:19
PROVIDERS: PCP Internal Medicine; Visit Provider Obstetrics & Gynecology
DX: Z12.31 Encounter for screening mammogram for malignant neoplasm of breast (principal); Z13.820 Encounter for screening for osteoporosis; Z78.0 Asymptomatic menopausal state
CPT/HCPCS: 77063; 77067; 77080

== ENCOUNTER → 2024-03-16 08:30 | Outpatient (BNV) | payer MEDICARE, MEDICAID, SELFPAY | PROVIDERS: PCP Internal Medicine; Visit Provider Internal Medicine | DX: Z12.31 Encounter for screening mammogram for malignant neoplasm of breast (principal) | CPT/HCPCS: 77063; 77067 ==

== ENCOUNTER 2024-03-26 10:52 | Outpatient (AMB) | payer MEDICARE, MEDICAID, SELFPAY ==
--- NOTE | 2024-03-26 10:59 | HO.SPINEOV ---
Intake Visit Reasons: LBP Intake Note: Ms. Barry is here today c/o low back pain. 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 She is a pleasant 68-year-old female who comes in today with a chief complaint of predominantly left leg pain and difficulty with ambulation. She reports some low back pain with ambulation as well but she does not feel that is the primary reason she is here today. Importantly she reports no pain when sitting and minimal pain when lying down. She states that since about 2011 she has been having progressively worsening ability to ambulate. Of note she has a pertinent surgical history of a lumbar decompression completed by Dr. Rodriguez at [facility] in 2010. She reports relief of her bilateral leg pain after the decompression, but states it was short-lived and accompanied by a return of symptoms which has worsened predominantly affecting the left side over the course of the last 10 years. She states she is unable to ambulate more than about 10-15 feet without feeling pain. When describing the pain she says it shoots down the lateral side of her left leg terminating near the left ankle. In addition to the pain she reports a left-sided footdrop. She feels this is significantly impacting her life, and has caused her to start ambulating with a cane if out for long periods of time. She denies any numbness/tingling/burning associated with the pain. She denies any balance issues. PMH: Right sided total knee arthroplasty. History of prior lumbar decompression completed by Dr. Rodriguez at [facility] in 2010. History of Graves disease with thyroid resection. History of triple bypass surgery in 2013. Hypertension, Hyperlipidemia, rheumatoid arthritis, GERD, osteopenia based on recent DEXA scan (completed but not yet read). Social hx: Patient does not smoke, reports no substance use. Medications: 81mg Aspirin daily (secondary prevention for triple bypass), Entanercept (RA), omeprazole, metoprolol, levothyroxine, furosemide, vitamin D3, atorvastatin, amlodipine, Tylenol. Allergies: NKDA. Physical exam: Selene has a notable left-sided footdrop (unable to engage dorsiflexion/EHL on the left). She has an absent left-sided achilles reflex. The rest of her reflexes appear 2+ intact, even her right-sided patellar reflex despite right TKA. The rest of her strength is 5/5 intact in her upper and lower extremities, however she does elicit quite a bit of left-sided leg pain to full strength testing of left knee flexion. She ambulates with an antalgic gait favoring her right side. She is able to lift her left foot off the ground but her absent dorsiflexion is evident with her gait. (-) Medina's, (-) clonus, (-) bilateral straight leg raise, (-) Babinski's. Imaging review: MRI of the lumbar spine completed here at [facility] on 03/14/2024 shows transitional anatomy. For the sake of this assessment the last fully formed disc space we will be considered L5-S1. At T11-12 there is severe central canal stenosis causing severe thoracic cord compression. At L1-2 there is a large posterior disc protrusion causing moderate-severe central canal stenosis. This is just under what appears to be the termination point of the conus medullaris. From L2-5 there varying levels of spondylosis; most notably there is a degenerative levoscoliosis that has formed as a result of severe degenerative disc disease seen at L4-5 causing severe foraminal stenosis at this level. Impression: Selene is a pleasant, complicated 68-year-old female who comes in today with a chief complaint of pain with ambulation and left-sided shooting radiculopathy. She denies any numbness/tingling but does endorse left-sided footdrop. Generally speaking she is still quite functional given the severity of her MRI. She has very little back pain and left walking for prolonged periods of time. I think in the long run it would be best to try and treat her symptomatically by addressing the L4-5 disc collapse which appears to be the origin of the degenerative scoliosis seen in this patient. However, before we can attempt to safely pursue that I would like the patient to have 2 different types of imaging performed. Firstly, she will need to have a thoracic MRI completed in order to evaluate the spinal cord impingement that can be seen on sagittal views but can not be properly evaluated by axial views, as the MRI is not extended up that far. If this does not appear to be a issue that needs to be addressed, we will then need to obtain a CT scan of the lumbar spine to evaluate for possible fusion between the degenerated segments. I would like the patient to call us after her thoracic MRI is completed so I can look at it, then order her the lumbar CT scan if warranted. She understands and agrees to this plan. Thank you for allowing us to care for your patient. The total time spent with this visit with this patient was 65 minutes reviewing history, physical exam, MRI imaging review, and implementation of treatment plan or further diagnostic testing Osmel Beltran MD,PhD [facility] Orders: Orders MR thoracic spine wo con Today M47.14 - Other spondylosis with myelopathy, thoracic region Coding Level of Care Code New Pt Level 5 (85139) Diagnoses Lumbar degenerative disc disease M51.36
== END 2024-03-26 12:04 | disposition home or self-care (01) ==
PROVIDERS: PCP Internal Medicine; Referring Provider Nurse Practitioner Family; Visit Provider Physician Assistant
DX: M51.36 Other intervertebral disc degeneration, lumbar region (principal)
CPT/HCPCS: 99205; 99215

== ENCOUNTER → 2024-03-26 10:52 | Outpatient (BNVA) | payer MEDICARE, MEDICAID, SELFPAY | PROVIDERS: PCP Internal Medicine; Visit Provider Physician Assistant | DX: M51.36 Other intervertebral disc degeneration, lumbar region (principal) | CPT/HCPCS: 99202 ==

== ENCOUNTER 2024-04-02 18:17 | Outpatient (REF) | payer MEDICARE, MEDICAID, SELFPAY ==
--- NOTE | ~2024-04-02 | MR_ITS ---
EXAMINATION: MR THORACIC SPINE WITHOUT CONTRAST CLINICAL INFORMATION: Other spondylosis with myelopathy, thoracic region COMPARISON: None available. TECHNIQUE: MRI of the thoracic spine was obtained using routine sequences without contrast. FINDINGS: Preservation of the normal thoracic kyphosis. No listhesis. Probable intraosseous hemangioma involving the majority of T8. Otherwise, no acute bone marrow abnormality. The vertebral body heights are preserved. Multilevel disc desiccation without significant disc height loss. Acute reactive endplate changes at T5-6 and C6-7 anteriorly. Multilevel endplate osteophytosis. The visualized spinal cord is normal in caliber. No abnormal cord signal. There are disc bulges at multiple levels throughout the thoracic spine. Of note, T7-8: Diffuse disc bulge. Mild spinal canal stenosis. No significant neural foraminal narrowing. T8-9: Diffuse disc bulge with superimposed right paracentral disc protrusion. There is mild to moderate spinal canal stenosis with distortion of the thecal sac an indentation of the cord. Mild right neural foraminal narrowing. T9-10: Diffuse disc bulge. Mild spinal canal stenosis. Moderate to severe left and mild right neural foraminal narrowing with impingement of the left exiting T9 nerve roots. T10-11: Diffuse disc bulge. Moderate spinal canal stenosis. Moderate to severe left and moderate right neural foraminal narrowing with mass effect on the exiting T10 nerve roots bilaterally. T11-12: Diffuse disc bulge, ligamentum flavum hypertrophy, bilateral facet arthrosis. Moderate to severe spinal canal stenosis with impingement of the cord. Severe left greater than right neural foraminal narrowing with mass effect on the exiting T11 nerve roots. The paravertebral soft tissues are unremarkable. The imaged intrathoracic and upper intra-abdominal structures are grossly within normal limits. MR/MR thoracic spine wo con IMPRESSION: -Multilevel degenerative changes of the thoracic spine, worst at T11-T12 where there is moderate to severe spinal canal stenosis with impingement of the cord and severe bilateral neural foraminal narrowing. No evidence of abnormal cord signal. -Additional multilevel degenerative changes throughout the thoracic spine as described above with moderate spinal canal stenosis at T10-T11 and mild to moderate spinal canal stenosis at T8-T9. There is moderate to severe left neural foraminal narrowing at T9-T10 and T10-T11 with impingement of the exiting left T9 and bilateral T10 nerve roots. Electronically signed by: Eliane Guzman MD 04/03/2024 03:09 PM EDT RP
== END 2024-04-02 18:18 | disposition home or self-care (01) ==
LOC: HO.MRI 18:17
PROVIDERS: PCP Internal Medicine; Visit Provider Physician Assistant
DX: M47.14 Other spondylosis with myelopathy, thoracic region (principal)
CPT/HCPCS: 72146

== ENCOUNTER 2024-04-05 08:30 | Outpatient (AMB) | payer MEDICARE, OTHER, SELFPAY ==
--- NOTE | 2024-04-05 08:32 | A.OFFVIS_ITS ---
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 T score @ spine and femoral Neck respectively were=-1.1 /-1.3 and 10 year FRAX risk = 4.1/0.1% for severe osteoporosis and fracture. The patient is requesting referral for surgical management regarding her cystocele with paravaginal defects and mild rectocele identified on a previous exam last visit [facility] Medical History Long-term use of immunosuppressant medication Personal history of COVID-19 Hx of thyroid cancer Non-rheumatic mitral regurgitation Essential hypertension Atherosclerotic cardiovascular disease group home 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 Seropositive rheumatoid arthritis Coronary arteriosclerosis Surgical History Hx of total knee replacement (06/22/22) Hx of bilateral cataract extraction Hx of colonoscopy History of back surgery Status post coronary artery bypass graft History of thyroid surgery Family History Mother HTN (hypertension) Social History Are you a primary career development facilitator to a significant other at home: No Do you presently have visiting nurse or other home services: No Alcohol intake: current Alcohol intake frequency: holidays/special occasions only Alcohol type: wine Comment: bathroom only, aware of trip hazards Patient Tobacco Use Status: Former Tobacco user Tobacco use type: Cigarette Female Reproductive History Menstrual Age of Menarche: 12 Review of Systems Const All systems reviewed & are unremarkable except as noted in HPI and below Reports as per HPI and Reports no additional complaints GI Reports no additional complaints Reports no additional complaints Physical Exam Vital Signs: BMI result Body Mass Index 31.6 Assessment & Plan Assessment & Plan (1) Osteopenia: Code(s): M85.80 - Other specified disorders of bone density and structure, unspecified site Category: Medical Plan: Discussed with the patient the DEXA results and FRAX risk. FRAX risk and T score showed no evidence of osteoporosis. Discussed with the patient all the options for osteoporosis prevention including lifestyle modifications including Ca+D supplements 1200 mg po qd/800 MIU, Weight bearing exercises and proteine supplements. The patient verbalized understanding and agreed plan will repeat DEXA in 2 years. (2) Cystocele and rectocele with incomplete uterovaginal prolapse: Comment: Bilateral paravaginal defects and mild rectocele Code(s): N81.2 - Incomplete uterovaginal prolapse Category: Medical Plan: Will to [facility]. Instructed the patient to call our office back in case a referral appointment is not scheduled, missed or canceled so that we will assist on rescheduling another appointment, the patient verbalized understanding agreed with the plan. Orders: Referrals Urogynecology Referral N81.2 - Incomplete uterovaginal prolapse Coding Level of Care Code Est Pt Level 3 (35461) Diagnoses Osteopenia M85.80 Cystocele and rectocele with incomplete uterovaginal prolapse N81.2
[2024-04-05 08:34] VITALS: BMI 31.6
== END 2024-04-05 08:50 | disposition home or self-care (01) ==
PROVIDERS: PCP Internal Medicine; Visit Provider Obstetrics & Gynecology
DX: M85.80 Other specified disorders of bone density and structure, unspecified site (principal); N81.2 Incomplete uterovaginal prolapse
CPT/HCPCS: 99213

== ENCOUNTER → 2024-04-05 08:30 | Outpatient (BNVA) | payer MEDICARE, OTHER, SELFPAY | PROVIDERS: PCP Internal Medicine; Visit Provider Obstetrics & Gynecology | DX: M85.80 Other specified disorders of bone density and structure, unspecified site (principal); N81.2 Incomplete uterovaginal prolapse | CPT/HCPCS: 99212 ==

== ENCOUNTER 2024-05-03 09:44 | Outpatient (REF) | payer MEDICARE, OTHER, SELFPAY ==
[2024-05-03 10:05] LABS: MANUAL DIFF FLAG NO
[2024-05-03 10:48] LABS: Basophils Absolute Auto 0.1 X10*3/uL (0.0-0.2); Basophils Percent Auto 1.1 % (0-2); Eosinophils Absolute Auto 0.2 X10*3/uL (0.0-0.4); Eosinophils Percent Auto 2.3 % (0-4); Hematocrit 40.8 % (37.0-47.0); Hemoglobin 14.2 g/dl (12.0-16.0); Imm Gran Abs Auto 0.01 X10*3/uL (0.00-0.03); Imm Gran Pct Auto 0.2 % (0.0-0.4); Lymphocytes Absolute Auto 2.6 X10*3/uL (1.2-4.9); Lymphocytes Percent Auto 39.3 % (20-40); Mean Corpuscular HGB Conc 34.8 g/dl (31.0-35.0); Mean Corpuscular Hemoglobin 28.4 pg (27.0-33.0); Mean Corpuscular Volume 81.6 fL (80.0-98.0); Mean Platelet Volume 10.6 fL (9.4-12.3); Monocytes Absolute Auto 0.6 X10*3/uL (0.1-1.2); Monocytes Percent Auto 9.2 % (2-11); Neutrophils Absolute Auto 3.1 x10*3/uL (2.0-8.3); Neutrophils Percent Auto 47.9 % (45-73); Platelet Count 245 X10*3/uL (160-400); Red Cell Distribution Width 13.2 % (11.0-16.0); White Blood Count 6.5 X10*3/uL (4.8-10.8)
[2024-05-03 11:26] LABS: Erythrocyte Sedimentation Rate 5 MM/HR (0-20)
[2024-05-03 11:31] LABS: Alanine Aminotransferase 16 U/L (0-31); Alkaline Phosphatase 125 U/L (39-117); Anion Gap 17 (12-20); Aspartate Amino Transferase 30 U/L (5-31); Bilirubin Total 0.9 mg/dL (0.0-1.0); Blood Urea Nitrogen 15 mg/dL (9-16); C Reactive Protein 0.61 mg/dL (< or = 0.50); Calcium 9.5 mg/dL (8.4-10.2); Carbon Dioxide 21 mmol/L (22-29); Chloride 108 mmol/L (96-108); Estimated Glomerular Filt Rate > 60; Glucose Random 126 mg/dL (60-115); Potassium 4.5 mmol/L (3.3-5.1); Sodium 141 mmol/L (135-145); Total Protein 7.4 g/dL (6.5-8.0)
[2024-05-03 11:59] LABS: HBc Num1 0.14 S/CO (0.00-0.79); HBsAGNum1 0.28 S/CO (0.00-0.99); Hepatitis A Antibody IgM 0.33 Index (0-0.79); Hepatitis B Core Antibody Nonreactive (Nonreactive); Hepatitis B Surface Antigen Negative (Negative); ~Hepatitis A Antibody IgM Nonreactive (Nonreactive); ~Hepatitis B Surface Antibody NONREACTIVE (Nonreactive); ~Hepatitis C Antibody Nonreactive (Nonreactive)
[2024-05-06 04:17] LABS: TS Negative Control Passed; TS Panel A 0; TS Panel B 0; TS Positive Control Passed; TSpotTB Negative (Negative)
== END 2024-05-03 09:45 | disposition home or self-care (01) ==
LOC: HO.LAB 09:44
PROVIDERS: PCP Internal Medicine; Visit Provider Student in an Organized Health Care Education/Training Program
DX: M05.9 Rheumatoid arthritis with rheumatoid factor, unspecified (principal); Z11.7 Encounter for testing for latent tuberculosis infection; Z11.59 Encounter for screening for other viral diseases; Z79.60 Long term (current) use of unspecified immunomodulators and immunosuppressants
CPT/HCPCS: 36415; 80053; 85025; 85652; 86140; 86481; 86704; 86706; 86709; 86803; 87340

== ENCOUNTER 2024-05-04 10:52 | Outpatient (AMB) | payer MEDICARE, OTHER, SELFPAY ==
--- NOTE | 2024-05-04 10:58 | MHC.OFFVIS ---
Vital Signs 05/04/24 11:03 Height 5 ft 3 in Weight 186 lb 15.232 oz BMI 33.1 BP 124/72 Blood Pressure Location Lt brachial Position Sitting Pulse 56 Pulse Source Pulse Oximeter Pulse Oximetry (%) 98 Oxygen Delivery Method Room Air Intake Visit Reasons: RA/OA/CM Intake Note: Patient presents for RA/OA. Allergies No Known Allergies [No Known Allergies*] Allergy (Verified 05/04/24 11:01) Medication List - Last Reconciled 05/04/24 by Rosendo Conway MD acetaminophen 650 mg PO Q6H PRN aspirin (Adult Low Dose Aspirin) 81 mg PO DAILY atorvastatin 80 mg PO BEDTIME calcium carbonate-vitamin D3 500 mg-5 mcg (200 unit) 1 tab PO DAILY etanercept (Enbrel SureClick) 50 mg subcut QWEEK furosemide 20 mg PO DAILY levothyroxine (Synthroid) 100 mcg PO DAILY metoprolol tartrate 50 mg PO BID 90 days omeprazole 20 mg PO DAILY HPI Comments Details: This is a 69-year-old female with seropositive RA on Enbrel and generalized osteoarthritis who presents for follow-up. She was evaluated by pain management and referred to spine surgeon, she has had multiple MRIs and was referred to do a CT scan of her L-spine. She states that surgery for her L-spine may be done. She states that the Enbrel works well for about 5-6 days then she starts having generalized pain. She feels better after the injection. [facility] Medical History Long-term use of immunosuppressant medication Personal history of COVID-19 Hx of thyroid cancer Non-rheumatic mitral regurgitation Essential hypertension Atherosclerotic cardiovascular disease [facility] 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 Seropositive rheumatoid arthritis Coronary arteriosclerosis Surgical History Hx of total knee replacement (06/22/22) Hx of bilateral cataract extraction Hx of colonoscopy History of back surgery Status post coronary artery bypass graft History of thyroid surgery Family History Mother HTN (hypertension) Social History Are you a primary child care group leader to a significant other at home: No Do you presently have visiting nurse or other home services: No Alcohol intake: current Alcohol intake frequency: holidays/special occasions only Alcohol type: wine Comment: bathroom only, aware of trip hazards Patient Tobacco Use Status: Former Tobacco user Tobacco use type: Cigarette Female Reproductive History Menstrual Age of Menarche: 12 Review of Systems ENT Reports neck pain Musc Reports back pain, Reports arthralgias, Denies joint swelling, Reports neck pain and Reports stiffness Physical Exam Vital Signs: Last Vital Signs Pulse 56 05/04/24 11:03 BP 124/72 05/04/24 11:03 Pulse Ox 98 05/04/24 11:03 Oxygen Delivery Method Room Air 05/04/24 11:03 BMI result Body Mass Index 0.3 Const General: cooperative, healthy appearing and comfortable Nutritional Appearance: obese Orientation/consciousness: patient oriented x3 Limitations: no limitations HEENT Head: Yes normocephalic and Yes atraumatic Mouth: moist mucous membranes Resp Effort & Inspection: normal respiratory effort and able to speak in complete sentences Auscultation: clear to auscultation bilaterally Cardio Rate: regular rate Rhythm: regular rhythm Skin General skin exam: no rashes or lesions noted Neuro General: patient oriented x3 Extrem Other: No active synovitis Normal range of motion of hands, wrists, elbows and shoulders without pain Negative straight leg raise test bilaterally Negative Fabere test bilaterally No groin pain with foot inversion bilaterally No trochanteric bursa area tenderness Assessment & Plan Assessment & Plan (1) Seropositive rheumatoid arthritis: Comment: +RF++CCP dx 2016 Leflunomide 2016 Plaquenil 2017 Humira January 2019 - October 2019 Methotrexate October 2018-September 2020-self stopped Xeljanz October 2019- September 2020- self stopped Kevzara- September 2020- October 2021- active disease on exam Actemra- October 2021- January 2022-low WBC, PLTS and absolute neutraphils Enbrel September 2018-December 2018- restarted February 2022 (on Hold for right arthroplasty on Jun 22) restarted July 2022 effective Code(s): M05.9 - Rheumatoid arthritis with rheumatoid factor, unspecified Category: Medical Plan: This is a 69-year-old female with seropositive RA who presents for follow-up. On Enbrel 50 mg weekly. Doing well overall with no active synovitis on exam. I think her Enbrel works well for 5-6 days then starts losing effectiveness. I think this is quite reasonable. We discussed potentially switching her to a different TNF-I or TNF-I by infusion such as Alonsodebi Boyd. Patient does not want to make any changes at this time and I agree with that. 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 Patient fully aware. Advised patient to seek medical care [facility] if patient has an infection and advised patient to stop the medication until the infection is resolved. (3) Degenerative spinal arthritis: Code(s): M47.819 - Spondylosis without myelopathy or radiculopathy, site unspecified Category: Medical Plan: Following up with spine surgeon. CT scan of her L-spine was ordered. Surgery may be done Patient asking about different meds for generalized osteoarthritis. She states that Tylenol has not been effective. Discussed with patient that NSAIDs generally should be avoided especially given her history of CAD. Try turmeric Plan I spent 26 minutes reviewing patient's chart, evaluating patient, ordering diagnostic workup, counseling patient and documenting in the chart Orders: Orders Complete Blood Count Auto Diff 4 Months M05.9 - Rheumatoid arthritis with rheumatoid factor, unspecified, M06.9 - Rheumatoid arthritis, unspecified Comprehensive Met. Panel 4 Months M05.9 - Rheumatoid arthritis with rheumatoid factor, unspecified, M06.9 - Rheumatoid arthritis, unspecified C Reactive Protein 4 Months M05.9 - Rheumatoid arthritis with rheumatoid factor, unspecified, M06.9 - Rheumatoid arthritis, unspecified Erythrocyte Sedimentation Rate 4 Months M05.9 - Rheumatoid arthritis with rheumatoid factor, unspecified, M06.9 - Rheumatoid arthritis, unspecified Coding Level of Care Code Est Pt Level 4 (06657) Complex EM visit Add On G2211 Diagnoses Seropositive rheumatoid arthritis M05.9 Long-term use of immunosuppressant medication Z79.60 Degenerative spinal arthritis M47.819
[2024-05-04 11:03] VITALS: BP 124/72; PULSE 56; O2SAT 98; BMI 33.1
== END 2024-05-04 11:34 | disposition home or self-care (01) ==
PROVIDERS: PCP Internal Medicine; Visit Provider Student in an Organized Health Care Education/Training Program
DX: M05.79 Rheumatoid arthritis with rheumatoid factor of multiple sites without organ or systems involvement (principal); Z79.60 Long term (current) use of unspecified immunomodulators and immunosuppressants; M47.819 Spondylosis without myelopathy or radiculopathy, site unspecified
CPT/HCPCS: 99214; G2211

== ENCOUNTER → 2024-05-04 10:52 | Outpatient (BNVA) | payer MEDICARE, OTHER, SELFPAY | PROVIDERS: PCP Internal Medicine; Visit Provider Student in an Organized Health Care Education/Training Program | DX: M05.9 Rheumatoid arthritis with rheumatoid factor, unspecified (principal); M47.819 Spondylosis without myelopathy or radiculopathy, site unspecified; Z79.60 Long term (current) use of unspecified immunomodulators and immunosuppressants | CPT/HCPCS: 99212 ==

== ENCOUNTER 2024-05-11 13:10 | Outpatient (REF) | payer MEDICARE, OTHER, SELFPAY | END 2024-05-11 13:11 | disposition home or self-care (01) | LOC: HO.CT 13:10 | PROVIDERS: PCP Internal Medicine; Visit Provider Physician Assistant | DX: M54.16 Radiculopathy, lumbar region (principal) | CPT/HCPCS: 72131 ==

== ENCOUNTER 2024-06-04 11:09 | Outpatient (REF) | payer MEDICARE, OTHER, SELFPAY ==
[2024-06-04 11:42] LABS: Estimated Average Glucose 105 mg/dL; Hemoglobin A1C 120.7117 umol/L; Hemoglobin A1c % 5.3 % (<6.0); Total Hemoglobin (HGBA1C) 3532.4692 umol/L
[2024-06-04 11:48] LABS: Alanine Aminotransferase 16 U/L (0-31); Alkaline Phosphatase 122 U/L (39-117); Aspartate Amino Transferase 30 U/L (5-31); Bilirubin Direct 0.3 mg/dL (0.0-0.5); Bilirubin Total 0.9 mg/dL (0.0-1.0); Cholesterol 99 mg/dL (<200); Glucose Fasting 109 mg/dL (60-99); HDL Cholesterol 31 mg/dL (>40); LDL Cholesterol Calculated 46 mg/dL (<100); Total Protein 7.3 g/dL (6.5-8.0); Triglycerides 114 mg/dL (<150)
[2024-06-04 12:22] LABS: Reflex LDLD? No
--- OUTSIDE RECORDS SUMMARY | 2024-06-06 15:05 | XMS_ITS ---
Author Organization Aaron Rob MD Address [address] [place] [phone] Care Team Providers Care Canceling Machine Operator Name Role Phone Aaron Rob Primary Care Provider [phone] RESULTS Component Value Reference Range Notes UA ClnCatch+Micro w/rflx Cul t Reviewed date:11/12/2023 06:36:15 PM Interpretation: Performing Lab:[facility], [address] [place] [phone] Notes/Report: Urine, Clean Catch Color Urine Yellow Appearance Urine Clear PH 7.0 5.0-9.0 Glucose Urine UA Negative Negative mg/dL Urine Blood Negative Negative Specific [place] - Urine 1.015 1.005-1.025 Urine Protein Negative Neg-Trace mg/dL Urine Ketones Negative Negative mg/dL Nitrite Urine Negative Negative Leukocyte Esterase Urine Large (3+) Negative RBC Urine 0-2 0-2 /HPF WBC Urine 0-5 0-5 /HPF Squamous Epithelial Cell Urine 6-10 0-2 /HPF Bacteria Urine 1+ None Seen Hyaline Casts Urine 0-2 0-2 /LPF REASON FOR VISIT repeat U/A Encounters Encounter Location Date Provider Diagnosis Aaron Rob MD [address] [place] [address] [place] [phone] 11/11/2023 Aaron Rob Hematuria, unspecified type R31.9 ASSESSMENTS Encounter Date Diagnosis Assessment Notes Treatment Notes Treatment Clinical Notes 11/11/2023 Hematuria, unspecified type (ICD-10 - R31.9) PLAN OF TREATMENT Next Appt Details Provider Name:Aaron deleon, 06/11/2024 09:00:00 AM, [address] [place] [address], [place] [address], [place], [place], [phone], Provider Name:Aaron deleon, 10/04/2024 07:45:00 AM, [address] [place] [address], [place] [address], [place], [phone], Provider Name:Aaron deleon, 10/11/2024 11:00:00 AM, [address] [place] [address], [place] [address], [place], [place], [phone],
--- OUTSIDE RECORDS SUMMARY | 2024-06-06 15:05 | XMS_ITS ---
Author Organization Aaron Rob MD Address [address] [place] [phone] Care Team Providers Care Utility Worker [place] Name Role Phone Aaron Rob Primary Care Provider [phone] REASON FOR VISIT flu shot MEDICATIONS Medication SIG (Take, Route, Frequency, Duration) Notes Start Date End Date Status Atorvastatin Calcium 80 MG Take 1 tablet by mouth once daily for 90 Active Docusate Sodium 100 MG 1 capsule as need ed Orally Once a day Not-Taking Hydrocortisone Kirt-Pramoxine 2.5-1 % 1 application to affected area as needed Rectal Two times a day for 14 days 03/23/2018 Not-Taking Estradiol 0.1 MG/GM as directed Vaginal Two times a Week for 30 days 10/11/2023 Active Nitrostat 0.4 MG as directed Sublingu al every 5 mins times 3 for 30 days 02/14/2018 Not-Taking Valtrex 1 GM 1 tablet Orally thre e times a day for 10 day(s) 05/17/2022 Not-Taking Amoxicillin-Pot Clavulanate 875-125 MG 1 tablet Orally every 12 hrs for 7 days 08/25/2023 Not-Taking traMADol HCl 50 MG 1 tablet as needed Orally Once a day Not-Taking oxyCODONE HCl 5 MG 1 to 2 tablets Orall y every 6 hrs for 10 days 05/17/2022 Not-Taki ng Tylenol 8 Hour Arthritis Pain 650 MG 2 tablets as needed Orally every 8 hrs Not-Taking Albuterol Sulfate (2.5 MG/3ML) 0.083% 3 ml Inhalation Three times a day 06/15/2012 Active Metoprolol Succinate ER 50 MG 1 tablet Orally twice a day Active Omeprazole 20 MG Take 1 capsule by [facility] once daily for 90 Active Enbrel 50 MG/ML 1 mL Subcutaneous Active Ventolin HFA 108 (90 Base) MCG/ACT 1 puff as needed Inhalation every 4 hrs for 30 days 05/13/2023 Active predniSONE 10 MG 1 tablet Orally Once a day for 30 day(s) Active Calcium + D 315-200 MG-UNIT 1 tablet Orally 500/125 once a day Active Aspir-81 81 MG 1 tablet Orally Once a day Active Lasix 20 MG 1 tablet Orally Once a day Active Levothyroxine Sodium 112 MCG 1 tablet in the morning on an empty stomach Orally Once a day Active IMMUNIZATIONS Vaccine Route Administration Date Status Comme nts Influenza High Dose IM Intramuscular 04/16/2024 Administer ed Encounters Encounter Location Date Provider Diagnosis Aaron Rob MD [address] [place] [address] [place] [phone] 04/16/2024 Aaron Rob Encounter for administration of vaccine Z23 ASSESSMENTS Encounter Date Diagnosis Assessment Notes Treatment Notes Treatment Clinical Notes 04/16/2024 Encounter for administration of vaccine (ICD-10 - Z23) PLAN OF TREATMENT Next Appt Details Provider Name:Aaron deleon, 06/11/2024 09:00:00 AM, [address] [place] [address], [address] [place] [address], [phone], Provider Name:Aaron deleon, 10/04/2024 07:45:00 AM, [address] [place] [address], [place] [address], [place], [place], [phone], Provider Name:Aaron deleon, 10/11/2024 11:00:00 AM, [address], [address], [place], [phone],
--- OUTSIDE RECORDS SUMMARY | 2024-06-06 15:05 | XMS_ITS ---
Author Organization Aaron Rob MD Address [address] [place] [phone] Care Team Providers Care Radiology Rn Name Role Phone Aaron Rob Primary Care Provider RESULTS Component Value Reference Range Notes Liver Panel Reviewed date:06/04/2024 12:45:25 PM Interpretation: Performing Lab:[facility], [address] [place] [phone] Notes/Report: Bilirubin Total 0.9 0.0-1.0 mg/dL Bilirubin Direct 0.3 0.0-0.5 mg/dL Aspartate Amino Transferase 30 5-31 U/L Alanine Aminotransferase 16 0-31 U/L Total Protein 7.3 6.5-8.0 g/dL Albumin Level 4.0 3.5-5.0 g/dL Alkaline Phosphatase 122 39-117 U/L Glucose Fasting Reviewed date:06/04/2024 12:49:55 PM Interpretation: Performing Lab:[facility], [address] [place] [phone] Notes/Report: Glucose Fasting 109 60-99 mg/dL A fasting glucose from 100-125 mg/dl is considered impaired (pre-diabetes). Lipid Panel with Reflex Reviewed date:06/04/2024 12:45:35 PM Interpretation: Performing Lab:[facility], [address] [place] [phone] Notes/Report: Triglycerides 114 <150 mg/dL Desirable Triglyceride: less than 150 mg/dL Borderline High Triglyceride 150-199 mg/dL High Triglyceride: 200-499 mg/dL Very High Triglyceride: greater than or equal to 5OO mg/dL Cholesterol 99 <200 mg/dL Desirable Cholesterol: less than 200 mg/dL Borderline High Cholesterol: 200-239 mg/dL High Cholesterol: greater than 239 mg/dL LDL Cholesterol Calculated 46 <100 mg/dL Desirable LDL: less than 100 mg/dL Near Optimal/Above Optimal LDL: 110-129 mg/dL Borderline High LDL: 130-159 mg/dL High LDL: 160-189 mg/dL Very High LDL: greater than or equal to 190 mg/dL HDL Cholesterol 31 >40 mg/dL Desirable HDL: greater than 40 mg/dL Note: This HDL assay may give artificially low results in patients with liver disease. Hemoglobin A1c Reviewed date:06/04/2024 12:44:41 PM Interpretation: Performing Lab:[facility], [address] [place] [phone] Notes/Report: Hemoglobin A1c % 5.3 <6.0 % Hemoglobin A1C Reference Range Adults: 4.8 - 6.0 % Non diabetic: < 6.0 % Goal: < 7.0 % Additional Action Suggested: > 8.0 % Note: Hemoglobin A1c results are invalid for patients with abnormal amounts of HbF. Blood transfusions may impact the HbA1c concentration in the patient sample. Estimated Average Glucose 105 eAG = Estimated average glucose which is %A1C expressed as average glucose, using the formula of the [id number] Average Glucose study (ADAG), Diabetes Care, Vol.31,#8, 2007 REASON FOR VISIT fasting lipids Encounters Encounter Location Date Provider Diagnosis Aaron Rob MD [address] [place] [address] [address] [place], [place] [phone] 06/04/2024 Aaron Rob Prediabetes R73.09 a nd Hypercholesterolemia E78.00 ASSESSMENTS Encounter Date Diagnosis Assessment Notes Treatment Notes Treatment Clinical Notes 06/04/2024 Prediabetes (ICD-10 - R73.09) 06/04/2024 Hypercholesterolemia (ICD-10 - E78.00) PLAN OF TREATMENT Next Appt Details Provider Name:Aaron villar, 06/11/2024 09:00:00 AM, [address] [place] [address], [address], [place], [phone], Provider Name:Aaron villar, 10/04/2024 07:45:00 AM, [address] [place] [address], [address], [place], [phone], Provider Name:Aaron villar, 10/11/2024 11:00:00 AM, [address] [place] [address], [place] [address], [place], [phone],
--- OUTSIDE RECORDS SUMMARY | 2024-06-06 15:06 | XMS_ITS | Patient Health Record ---
Author Organization Aaron Rob MD Address [address] [place] [phone] Care Team Providers Care Java Swing Developer Name Role Phone Aaron Rob Primary Care Provider [phone] ALLERGIES No Known Allergies RESULTS Component Value Reference Range Notes Complete Blood Count Auto Di ff Reviewed date:07/14/2023 12:05:55 PM Interpretation: Performing Lab:[facility], [address] [place] [phone] Notes/Report: White Blood Count 5.7 4.8-10.8 X10*3/uL Red Blood Count 5.05 4.20-5.50 X10*6/uL Hemoglobin 14.2 12.0-16.0 g/dl Hematocrit 43.4 37.0-47.0 % Mean Corpuscular Volume 85.9 80.0-98.0 fL Mean Corpuscular Hemoglobin 28.1 27.0-33.0 pg Mean Corpuscular HGB Conc 32.7 31.0-35.0 g/dl Red Cell Distribution Width 13.3 11.0-16.0 % Platelet Count 221 160-400 X10*3/uL Mean Platelet Volume 10.4 9.4-12.3 fL Neutrophils Percent Auto 39.2 45-73 % Imm Gran Pct Auto 0.4 0.0-0.4 % Lymphocytes Percent Auto 47.2 20-40 % Monocytes Percent Auto 9.5 2-11 % Eosinophils Percent Auto 2.5 0-4 % Basophils Percent Auto 1.2 0-2 % NRBC Pct Auto 0.0 0.0-0.2 /100WBC Neutrophils Absolute Auto 2.2 2.0-8.3 x10*3/u L Imm Gran Abs Auto 0.02 0.00-0.03 X10*3/uL Lymphocytes Absolute Auto 2.7 1.2-4.9 X10*3/u L Monocytes Absolute Auto 0.5 0.1-1.2 X10*3/uL Eosinophils Absolute Auto 0.1 0.0-0.4 X10*3/u L Basophils Absolute Auto 0.1 0.0-0.2 X10*3/uL NRBC Abs Auto 0.000 0.0-0.012 X10*3/uL Erythrocyte Sedimentation Ra te Reviewed date:07/14/2023 12:10:14 PM Interpretation: Performing Lab:[facility], [address] [place] [phone] Notes/Report: Erythrocyte Sedimentation Rate 2 0-20 MM/HR Patients with polycythemia and many hemoglobin abnormalities may have depressed sed rates whereas patients with anemia may have elevated sed rates. Comprehensive Met. Panel Reviewed date:07/14/2023 12:13:22 PM Interpretation: Performing Lab:[address] [phone] Notes/Report: Sodium 144 135-145 mmol/L Potassium 3.9 3.3-5.1 mmol/L Chloride 106 96-108 mmol/L Carbon Dioxide 29 22-29 mmol/L Anion Gap 13 12-20 Blood Urea Nitrogen 17 9-16 mg/dL Creatinine 0.67 0.5-1.4 mg/dL Estimated Glomerular Filt Rate > 60 NOTE: For -Anguill[place] individuals, multiply the result by 1.210. Chronic Kidney Disease: Estimated GFR < 60 mL/min/1.73m2 Severe Kidney Disease: Estimated GFR < 15 mL/min/1.73m2 Glucose Random 107 60-115 mg/dL Calcium 9.3 8.4-10.2 mg/dL Bilirubin Total 0.7 0.0-1.0 mg/dL Aspartate Amino Transferase 14 5-31 U/L Alanine Aminotransferase 10 0-31 U/L Total Protein 7.1 6.5-8.0 g/dL Albumin Level 4.1 3.5-5.0 g/dL Alkaline Phosphatase 120 39-117 U/L C Reactive Protein Reviewed date:07/14/2023 11:49:12 AM Interpretation: Performing Lab:[address] [phone] Notes/Report: C Reactive Protein 0.20 < or = 0.50 mg/dL Hold Gold Reviewed date:10/04/2023 02:25:54 PM Interpretation: Performing Lab:[address] [phone] Notes/Report: Hold Gold See Note Specimen held untested for 24 hours; Call to request Chemistry testing. Urine Culture Reviewed date:10/04/2023 02:33:59 PM Interpretation: Performing Lab:[address] [phone] Notes/Report: Urine Culture No growth. Complete Blood Count Auto Di ff Reviewed date:10/04/2023 02:49:19 PM Interpretation: Performing Lab:[address] [phone] Notes/Report: White Blood Count 6.9 4.8-10.8 X10*3/uL Red Blood Count 5.04 4.20-5.50 X10*6/uL Hemoglobin 14.2 12.0-16.0 g/dl Hematocrit 42.7 37.0-47.0 % Mean Corpuscular Volume 84.7 80.0-98.0 fL Mean Corpuscular Hemoglobin 28.2 27.0-33.0 pg Mean Corpuscular HGB Conc 33.3 31.0-35.0 g/dl Red Cell Distribution Width 13.2 11.0-16.0 % Platelet Count 254 160-400 X10*3/uL Mean Platelet Volume 10.7 9.4-12.3 fL Neutrophils Percent Auto 31.2 45-73 % Imm Gran Pct Auto 0.1 0.0-0.4 % Lymphocytes Percent Auto 54.5 20-40 % Monocytes Percent Auto 11.4 2-11 % Eosinophils Percent Auto 1.9 0-4 % Basophils Percent Auto 0.9 0-2 % NRBC Pct Auto 0.0 0.0-0.2 /100WBC Neutrophils Absolute Auto 2.2 2.0-8.3 x10*3/u L Imm Gran Abs Auto 0.01 0.00-0.03 X10*3/uL Lymphocytes Absolute Auto 3.8 1.2-4.9 X10*3/u L Monocytes Absolute Auto 0.8 0.1-1.2 X10*3/uL Eosinophils Absolute Auto 0.1 0.0-0.4 X10*3/u L Basophils Absolute Auto 0.1 0.0-0.2 X10*3/uL NRBC Abs Auto 0.000 0.0-0.012 X10*3/uL Comprehensive Ingram. Panel Fa st Reviewed date:10/04/2023 02:51:23 PM Interpretation: Performing Lab:[facility], [address] [place] [phone] Notes/Report: Sodium 143 135-145 mmol/L Potassium 4.1 3.3-5.1 mmol/L Chloride 110 96-108 mmol/L Carbon Dioxide 28 22-29 mmol/L Anion Gap 9 12-20 Blood Urea Nitrogen 23 9-16 mg/dL Creatinine 0.65 0.5-1.4 mg/dL Estimated Glomerular Filt Rate > 60 NOTE: For -Anguill[place] individuals, multiply the result by 1.210. Chronic Kidney Disease: Estimated GFR < 60 mL/min/1.73m2 Severe Kidney Disease: Estimated GFR < 15 mL/min/1.73m2 Glucose Fasting 110 60-99 mg/dL A fasting glucose from 100-125 mg/dl is considered impaired (pre-diabetes). Calcium 9.1 8.4-10.2 mg/dL Bilirubin Total 0.8 0.0-1.0 mg/dL Aspartate Amino Transferase 15 5-31 U/L Alanine Aminotransferase 16 0-31 U/L Total Protein 7.3 6.5-8.0 g/dL Albumin Level 4.1 3.5-5.0 g/dL Alkaline Phosphatase 119 39-117 U/L Lipid Panel Reviewed date:10/04/2023 02:25:35 PM Interpretation: Performing Lab:[facility], [address] [place] [phone] Notes/Report: Triglycerides 142 <150 mg/dL Desirable Triglyceride: less than 150 mg/dL Borderline High Triglyceride 150-199 mg/dL High Triglyceride: 200-499 mg/dL Very High Triglyceride: greater than or equal to 5OO mg/dL Cholesterol 120 <200 mg/dL Desirable Cholesterol: less than 200 mg/dL Borderline High Cholesterol: 200-239 mg/dL High Cholesterol: greater than 239 mg/dL LDL Cholesterol Calculated 56 <100 mg/dL Desirable LDL: less than 100 mg/dL Near Optimal/Above Optimal LDL: 110-129 mg/dL Borderline High LDL: 130-159 mg/dL High LDL: 160-189 mg/dL Very High LDL: greater than or equal to 190 mg/dL HDL Cholesterol 36 >40 mg/dL Desirable HDL: greater than 40 mg/dL Note: This HDL assay may give artificially low results in patients with liver disease. TSH reflex Free T4 Reviewed date:10/04/2023 02:23:24 PM Interpretation: Performing Lab:[facility], [address] [place] [phone] Notes/Report: TSH reflex Free T4 0.95 0.32-4.0 uIU/mL Microalbumin, Random Reviewed date:10/04/2023 02:25:46 PM Interpretation: Performing Lab:[facility], [address] [place] [phone] Notes/Report: Creatinine Urine 157.12 Microalbumin Urine 26.0 Microalbum/Creatinine Ratio Ur 16.5 <30 ug/mg cr Albumin/Creatinine Ratio Reference Ranges: Normal: < 30 ug/mg creatinine Microalbuminuria: 30 - 300 ug/mg creatinine Clinical Albuminuria: > 300 ug/mg creatinine Hemoglobin A1c Reviewed date:10/04/2023 02:25:18 PM Interpretation: Performing Lab:[address] [phone] Notes/Report: Hemoglobin A1c % 5.2 <6.0 % Hemoglobin A1C Reference Range Adults: 4.8 - 6.0 % Non diabetic: < 6.0 % Goal: < 7.0 % Additional Action Suggested: > 8.0 % Note: Hemoglobin A1c results are invalid for patients with abnormal amounts of HbF. Blood transfusions may impact the HbA1c concentration in the patient sample. Estimated Average Glucose 103 eAG = Estimated average glucose which is %A1C expressed as average glucose, using the formula of the [id number] Average Glucose study (ADAG), Diabetes Care, Vol.31,#8, Jan. 2007 UA ClnCatch+Micro w/rflx Cul t Reviewed date:10/04/2023 02:42:40 PM Interpretation: Performing Lab:[address] [phone] Notes/Report: Urine, Clean Catch Color Urine Yellow Appearance Urine Cloudy PH 5.5 5.0-9.0 Glucose Urine UA Negative Negative mg/dL Urine Blood Trace Negative Specific [place] - Urine >= 1.030 1.005-1.025 Urine Protein Negative Neg-Trace mg/dL Urine Ketones Negative Negative mg/dL Nitrite Urine Negative Negative Leukocyte Esterase Urine Small (1+) Negative RBC Urine 11-20 0-2 /HPF WBC Urine 6-10 0-5 /HPF Squamous Epithelial Cell Urine 0-2 0-2 /HPF Calcium Oxalate Crystals Urine Present Bacteria Urine None Seen None Seen Hyaline Casts Urine 0-2 0-2 /LPF Urine Culture Reviewed date:10/25/2023 11:19:20 AM Interpretation: Performing Lab:[address] [phone] Notes/Report: Urine Culture Report Result Urine Culture < 10,000 cfu/ml UA ClnCatch+Micro w/rflx Cul t Reviewed date:10/25/2023 07:32:44 AM Interpretation: Performing Lab:[address] [phone] Notes/Report: Urine, Clean Catch Color Urine Yellow Appearance Urine Cloudy PH 6.5 5.0-9.0 Glucose Urine UA Negative Negative mg/dL Urine Blood Trace Negative Specific [place] - Urine 1.010 1.005-1.025 Urine Protein Negative Neg-Trace mg/dL Urine Ketones Negative Negative mg/dL Nitrite Urine Negative Negative Leukocyte Esterase Urine Large (3+) Negative RBC Urine 6-10 0-2 /HPF WBC Urine 11-20 0-5 /HPF Squamous Epithelial Cell Urine 11-20 0-2 /HPF Bacteria Urine 2+ None Seen Hyaline Casts Urine 0-2 0-2 /LPF Occult Blood, Stool, Guaiac Reviewed date:10/27/2023 02:15:06 PM Interpretation:Negative Performing Lab: Notes/Report: Negative Occult Blood, Stool, Guaiac Neg Urine Culture Reviewed date:11/12/2023 06:27:53 PM Interpretation: Performing Lab:[facility], [address] [place] [phone] Notes/Report: Urine Culture Report Result Urine Culture 10,000 to 50,000 cfu/ml Urine Culture Mixed bacterial herson a characteristic of Urine Culture urogenital contamination. UA ClnCatch+Micro w/rflx Cul t Reviewed date:11/12/2023 06:36:15 PM Interpretation: Performing Lab:[facility], [address] [place] [phone] Notes/Report: Urine, Clean Catch Color Urine Yellow Appearance Urine Clear PH 7.0 5.0-9.0 Glucose Urine UA Negative Negative mg/dL Urine Blood Negative Negative Specific [place] - Urine 1.015 1.005-1.025 Urine Protein Negative Neg-Trace mg/dL Urine Ketones Negative Negative mg/dL Nitrite Urine Negative Negative Leukocyte Esterase Urine Large (3+) Negative RBC Urine 0-2 0-2 /HPF WBC Urine 0-5 0-5 /HPF Squamous Epithelial Cell Urine 6-10 0-2 /HPF Bacteria Urine 1+ None Seen Hyaline Casts Urine 0-2 0-2 /LPF Complete Blood Count Auto Di ff Reviewed date:01/23/2024 12:45:16 PM Interpretation: Performing Lab:[address] [phone] Notes/Report: White Blood Count 6.1 4.8-10.8 X10*3/uL Red Blood Count 4.97 4.20-5.50 X10*6/uL Hemoglobin 14.0 12.0-16.0 g/dl Hematocrit 42.0 37.0-47.0 % Mean Corpuscular Volume 84.5 80.0-98.0 fL Mean Corpuscular Hemoglobin 28.2 27.0-33.0 pg Mean Corpuscular HGB Conc 33.3 31.0-35.0 g/dl Red Cell Distribution Width 13.4 11.0-16.0 % Platelet Count 211 160-400 X10*3/uL Mean Platelet Volume 10.4 9.4-12.3 fL Neutrophils Percent Auto 35.2 45-73 % Imm Gran Pct Auto 0.2 0.0-0.4 % Lymphocytes Percent Auto 53.9 20-40 % Monocytes Percent Auto 6.8 2-11 % Eosinophils Percent Auto 2.8 0-4 % Basophils Percent Auto 1.1 0-2 % NRBC Pct Auto 0.0 0.0-0.2 /100WBC Neutrophils Absolute Auto 2.2 2.0-8.3 x10*3/u L Imm Gran Abs Auto 0.01 0.00-0.03 X10*3/uL Lymphocytes Absolute Auto 3.3 1.2-4.9 X10*3/u L Monocytes Absolute Auto 0.4 0.1-1.2 X10*3/uL Eosinophils Absolute Auto 0.2 0.0-0.4 X10*3/u L Basophils Absolute Auto 0.1 0.0-0.2 X10*3/uL NRBC Abs Auto 0.000 0.0-0.012 X10*3/uL Erythrocyte Sedimentation Ra te Reviewed date:01/23/2024 12:09:33 PM Interpretation: Performing Lab:[facility], [address] [place] [phone] Notes/Report: Erythrocyte Sedimentation Rate 2 0-20 MM/HR Patients with polycythemia and many hemoglobin abnormalities may have depressed sed rates whereas patients with anemia may have elevated sed rates. Comprehensive Met. Panel Reviewed date:01/23/2024 12:12:34 PM Interpretation: Performing Lab:[facility], [address] [place] [phone] Notes/Report: Sodium 141 135-145 mmol/L Potassium 4.0 3.3-5.1 mmol/L Chloride 110 96-108 mmol/L Carbon Dioxide 22 22-29 mmol/L Anion Gap 13 12-20 Blood Urea Nitrogen 20 9-16 mg/dL Creatinine 0.67 0.5-1.4 mg/dL Estimated Glomerular Filt Rate > 60 NOTE: For -[place]guillan individuals, multiply the result by 1.210. Chronic Kidney Disease: Estimated GFR < 60 mL/min/1.73m2 Severe Kidney Disease: Estimated GFR < 15 mL/min/1.73m2 Glucose Random 139 60-115 mg/dL Calcium 8.9 8.4-10.2 mg/dL Bilirubin Total 0.7 0.0-1.0 mg/dL Aspartate Amino Transferase 15 5-31 U/L Alanine Aminotransferase 12 0-31 U/L Total Protein 6.8 6.5-8.0 g/dL Albumin Level 3.9 3.5-5.0 g/dL Alkaline Phosphatase 113 39-117 U/L C Reactive Protein Reviewed date:01/23/2024 12:09:42 PM Interpretation: Performing Lab:[facility], [address] [place] [phone] Notes/Report: C Reactive Protein 0.22 < or = 0.50 mg/dL XR knee LT 3V Reviewed date:04/27/2024 05:15:34 PM Interpretation: Performing Lab: Notes/Report: [address] [address] XRay Report Signed Patient: Selene Barry MR#: [id number] : 1955 Acct:[id number] Age/Sex: 68 / F ADM Date: 02/03/24 Loc: [facility] Attending Dr: Kasey LUKE Ordering Physician: Kasey Wesley Date of Service: 02/03/24 Procedure(s): XR knee LT 3V Accession Number(s): [id number] cc: Aaron Rob MD; Kasey Wesley EXAMINATION: XR KNEE, LEFT CLINICAL INFORMATION: Pain COMPARISON: X-ray dated January 08, 2016 TECHNIQUE: Four views of the left knee. FINDINGS: No acute cortical disruption or gross malalignment. Joint space narrowing involving the medial and to a lesser extent lateral compartment. No lytic or blastic lesions. No joint effusion, suprapatellar bursa. 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 Electronically signed by: Mac Willson MD 04/27/2024 11:38 AM EDT RP Dictated By: Mac Spencer Signed By: <Electronically signed by Mac Arce in [place]> 04/27/24 1138 DD/ 0954 TD/TT: 02/03/24 1022 Chief Cook: XR foot LT min 3V Reviewed date:04/27/2024 11:59:11 AM Interpretation: Performing Lab: Notes/Report: [address] [address] XRay Report Signed Patient: Selene Barry MR#: [id number] : 1955 Acct:[id number] Age/Sex: 68 / F ADM Date: 02/03/24 Loc: [facility] Attending Dr: Kasey LUKE Ordering Physician: Kasey Wesley Date of Service: 02/03/24 Procedure(s): XR foot LT min 3V Accession Number(s): [id number] cc: Aaron Rob MD; Kasey Wesley EXAMINATION: XR FOOT, LEFT CLINICAL INFORMATION: Pain COMPARISON: None available. TECHNIQUE: AP, lateral, and oblique views of the left foot. FINDINGS: Submitted for interpretation on April 27, 2024. No acute cortical disruption or malalignment. Degenerative changes in the first metatarsophalangeal joint. No lytic or blastic lesions. Small exostosis at the Achilles tendon insertion. XR/XR foot LT min 3V IMPRESSION: No acute fracture or dislocation. Electronically signed by: Mac Willson MD 04/27/2024 10:45 AM EDT RP Dictated By: Mac Spencer Signed By: <Electronically signed by Mac Arce in OV> 04/27/24 1045 DD/ 0954 TD/TT: 02/03/24 1022 Chief Cook: XR lumbar spine 4V min Reviewed date:04/11/2024 06:48:51 PM Interpretation: Performing Lab: Notes/Report: [address] [address] XRay Report Signed Patient: Selene Barry MR#: [id number] : 1955 Acct:[id number] Age/Sex: 68 / F ADM Date: 02/03/24 Loc: HO.SUSAN Attending Dr: Kasey LUKE Ordering Physician: Kasey Wesley Date of Service: 02/03/24 Procedure(s): XR lumbar spine 4V min Accession Number(s): [id number] cc: Aaron Rob MD; Kasey Wesley EXAMINATION: XR LUMBOSACRAL SPINE CLINICAL INFORMATION: Spondylosis, without myelopathy or radiculopathy. COMPARISON: MRI lumbar spine dated 07/07/20112011 lumbar spine radiographs dated 11/26/2010. TECHNIQUE: AP, bilateral oblique and lateral views of the lumbar spine were submitted, together with a lateral view of the lumbosacral junction. FINDINGS: There is bony demineralization. There is a transitional lumbar vertebra, with 6 nonrib-bearing lumbar-type vertebra. There is a moderately severe thoracolumbar rotatory levoscoliosis. There is mild posterior disc space narrowing at T12-L1 and L1-2. There is marked degenerative disc disease extending from L2-3 through the lumbosacral junction, with disc space narrowing and endplate arthropathy. Vacuum disc phenomenon is seen at L2-3 and L3-4. No acute fracture or spondylolisthesis is seen. The posterior elements are intact. No spondylolysis defect is seen on the oblique views. There is multi-level lumbar facet arthropathy. There are aortoiliac atherosclerotic calcifications. Pelvic phleboliths are seen. XR/XR lumbar spine 4V min IMPRESSION: 1. There is transitional anatomy of the lumbar spine. 2. There is multi-level degenerative disc disease and endplate and facet arthropathy. Degenerative disc disease is most severe at L2-3 through the lumbosacral junction. 3. There is a moderately severe thoracolumbar rotatory levoscoliosis. Electronically signed by: Jos Martínez MD 04/09/2024 08:40 AM EDT Dictated By: Jos Martínez MD Signed By: <Electronically signed by Jos Martínez MD in OV> 04/09/24 0840 DD/ 0954 TD/TT: 02/03/24 1022 Chief Cook: RONALD MR lumbar spine wo con Reviewed date:03/15/2024 12:30:31 PM Interpretation: Performing Lab: Notes/Report: [address] [address] Magnetic Resonance Report Signed Patient: Selene Barry MR#: [id number] : 1955 Acct:[id number] Age/Sex: 68 / F ADM Date: 03/14/24 Loc: HO.MRI Attending Dr: Kasey LUKE Ordering Physician: Kasey Wesley Date of Service: 03/14/24 Procedure(s): MR lumbar spine wo con Accession Number(s): [id number] cc: Aaron Rob MD; Kasey eWsley EXAMINATION: MR LUMBAR SPINE WITHOUT CONTRAST CLINICAL INFORMATION: Back surgery 10 years ago. COMPARISON: None available. TECHNIQUE: MRI of the lumbar spine was obtained using routine sequences without contrast. FINDINGS: There is transitional anatomy. There are 5 nonrib-bearing lumbar-type vertebral bodies. S1 is lumbarized sharing severe disc volume loss with S2. There is a severe leftward convex scoliotic curvature of the lower lumbar spine with the apex at L4 where there is grade 1 left lateral listhesis at L4-L5. There is severe right-sided volume loss at L4-L5 and there is severe left-sided volume loss at L5-S1. There is moderate disc volume loss at L2-L3 and there is severe right-sided Loss of L3-L4. There are multilevel endplate osteophytes. Modic type I endplate signal changes at L3-L4 and L5-S1. No additional bone marrow edema. No acute fractures. Conus terminates at the L2 level. There is paraspinal muscular atrophy bilaterally. Sigmoid diverticulosis. At T11-T12, there is slight grade 1 anterolisthesis along with a diffuse annular disc bulge and ligamentum flavum thickening result in severe central canal stenosis, significant mass effect on the thoracic cord, and severe bilateral foraminal stenosis. L1-L2: A large right paracentral disc protrusion compresses the traversing right L2 nerve root the right subarticular zone and results in moderate central canal stenosis flattening of the cord. Disc osteophyte facet arthropathy results in mild bilateral foraminal encroachment. L2-L3: A left paracentral/left lateral disc protrusion results in left subarticular zone stenosis with mass effect on the traversing left L3 nerve root as well as moderate left-sided foraminal stenosis with mass effect on the exiting left L2 nerve root. Severe right-sided foraminal stenosis with compression of the exiting right L2 nerve. L3-L4: There is a background annular disc bulge and there is bilateral facet arthropathy and ligamentum flavum thickening. There is moderate central canal stenosis. Advanced facet arthropathy results in severe right-sided foraminal stenosis with compression of the exiting right L3 nerve root. L4-L5: there are laminectomy changes and spondylitic changes result in moderate central canal stenosis as well as severe left and moderate right foraminal stenosis with mass effect on the exiting left greater than right L4 nerve roots. There is clumping of the cauda equina nerve roots at this level that may be the sequela of adhesive arachnoiditis. L5-S1: There is grade 1 anterolisthesis with uncovering disc osteophyte and severe bilateral arthropathy. Left lateral disc osteophyte protrusion. Laminectomy changes. Findings in concert result in severe left subarticular zone stenosis with compression of the traversing left S1 nerve root as well as severe left and moderate right foraminal stenosis with compression of the exiting left nerve root. S1-S2: Diffuse disc osteophyte complex and bilateral facet arthropathy. Findings in concert result in severe bilateral foraminal stenosis with compression of the exiting nerve roots bilaterally. MR/MR lumbar spine wo con IMPRESSION: * There is transitional anatomy. There are 5 nonrib-bearing lumbar-type vertebral bodies. S1 is lumbarized sharing severe disc volume loss with S2. Please correlate with plain films prior to any percutaneous or surgical intervention. * There is a severe leftward convex scoliotic curvature of the lower lumbar spine superimposed on advanced multilevel degenerative disc disease and hypertrophic facet arthropathy. * At T11-T12, there is slight grade 1 anterolisthesis that along with additional spondylitic changes result in severe central canal stenosis, significant mass effect on the thoracic cord, and severe bilateral foraminal stenosis. * At L1-L2, a large right paracentral disc protrusion compresses the traversing right L2 nerve root the right subarticular zone and results in moderate central canal stenosis with flattening of the cord. * At L2-L3, a left paracentral/left lateral disc protrusion results in left subarticular zone stenosis with mass effect on the traversing left L3 nerve root as well as moderate left-sided foraminal stenosis with mass effect on the exiting left L2 nerve root. Severe right-sided foraminal stenosis with compression of the exiting right L2 nerve root. Mild to moderate central canal stenosis. * At L3-L4, Advanced facet arthropathy results in severe right-sided foraminal stenosis with compression of the exiting right L3 nerve root. Moderate central canal stenosis at this level. * At L4-L5, there are laminectomy changes and spondylitic changes result in moderate central canal stenosis as well as severe left and moderate right foraminal stenosis with mass effect on the exiting left greater than right L4 nerve roots. There is clumping of the cauda equina nerve roots at this level that may be the sequela of adhesive arachnoiditis. * At L5-S1, there are laminectomy changes and spondylitic changes results in severe left subarticular zone stenosis with compression of the traversing left S1 nerve root as well as severe left and moderate right foraminal stenosis with compression of the exiting left nerve root. There is clumping of the cauda equina nerve roots at this level that may be the sequela of adhesive arachnoiditis. * At S1-S2, spondylitic changes result in severe bilateral foraminal stenosis and compression of the exiting nerve roots bilaterally Electronically signed by: Irvin Mar MD 03/15/2024 10:01 AM EDT Dictated By: Irvin Mar MD Signed By: <Electronically signed by Irvin Mar MD in [place]> 03/15/24 1001 DD/ 10 TD/TT: 03/14/242027 Chief Cook: MARIA ISABEL VASQUEZ tomosynthesis screening B I Reviewed date:03/28/2024 03:56:48 PM Interpretation: Performing Lab: Notes/Report: [place] [place] [address] Mammography Report Signed Patient: Selene Barry MR#: [id number] : 1955 Acct:[id number] Age/Sex: 68 / F ADM Date: 03/16/24 Loc: HO.MAMMO Attending Dr: Power Becker MD Ordering Physician: Power Becker MD Results: 1Negativ e Date of Service: 03/16/24 Follow Up: 1 Year From Orig inal Mammogram Procedure(s): MM tomosynthesis screening BI Accession Number(s): [id number] cc: Aaron Rob MD; Power Becker MD EXAMINATION: MM SCREENING DIGITAL BREAST TOMOSYNTHESIS, BILATERAL CLINICAL INFORMATION: Screening. Asymptomatic. COMPARISON: Mammography: Comparison is made with available priors TECHNIQUE: Digital breast mammography with tomosynthesis is performed in both the craniocaudal and mediolateral oblique views along with computer-aided detection (CAD). FINDINGS: There are scattered areas of fibroglandular density (ACR BI-RADS breast composition Category b). There are no significant masses, abnormal calcifications, or other abnormalities. MM/MM tomosynthesis screening BI IMPRESSION: No mammographic evidence of malignancy. ASSESSMENT: BI-RADS BI-RADS 1 - Negative RECOMMENDATION: Routine annual mammography screening. 1 year F/U This examination should not preclude the clinical evaluation of a suspicious palpable abnormality. This patient's information was entered into a reminder system with a target due date for their next mammogram. Electronically signed by: Tonia Viera DO 03/28/2024 11:59 AM EDT Dictated By: Tonia Viera DO Signed By: <Electronically signed by Tonia Viera DO in OV> 03/28/24 1159 DD/ 0830 TD/TT: 03/16/24 0840 Chief Cook: XR DEXA axial skeleton Reviewed date:04/03/2024 02:11:53 PM Interpretation: Performing Lab: Notes/Report: [address] [place] [address] Mammography Report Signed Patient: Selene Barry MR#: [id number] : 1955 Acct:[id number] Age/Sex: 68 / F ADM Date: 03/16/24 Loc: [facility] Attending Dr: Power Becker MD Ordering Physician: Power Becker MD Results: Date of Service: 03/16/24 Follow Up: Procedure(s): XR DEXA axial skeleton Accession Number(s): [id number] cc: Aaron Rob MD; Power Becker MD EXAMINATION: BONE DENSITOMETRY CLINICAL INDICATION: Menopause. COMPARISON: Previous BD dated 10/09/2021 and baseline BD dated 10/05/2016. TECHNIQUE: Using a [employer]imon DXA System (software version: 13.1) manufactured by [employer], dual-energy x-ray absorptiometry was performed of the lumbar spine and left hip. The images are of good technical quality. Summary results are attached. FINDINGS: LEFT FEMUR, NECK: Current: BMD 1.145 g/cm2, Z-score 2.0, T-score 0.8, normal. Prior: BMD 0.923 g/cm2. Baseline: BMD 0.751 g/cm2. LEFT FEMUR, TOTAL: Current: BMD 0.838 g/cm2, Z-score -0.4, T-score -1.3, osteopenia, 14.2% increase from previous, 21.3% increase from baseline (<5% change is not significant). Prior: BMD 0.734 g/cm2. Baseline: BMD 0.691 g/cm2. AP SPINE L1-L2 (excluding L3 and L4): The data of L1-L4 has been changed to exclude the L3 and L4 vertebral bodies, because significant degenerative change at these levels may cause overestimation of lumbar spine density. Current: BMD 1.037 g/cm2, Z-score 0.0, T-score -1.1, osteopenia, 5.1% increase from previous, 11.9% increase from baseline (<5% change is not significant). Prior: BMD 0.987 g/cm2. Baseline: BMD 0.927 g/cm2. IDENTIFIED RISK FACTORS: Menopause, rheumatoid arthritis. HISTORY OF FRACTURE: None listed. MEDICATIONS: Calcium, vitamin D. MM/XR DEXA axial skeleton IMPRESSION: 1. DIAGNOSIS: Osteopenia based on the lowest T-score value of -1.3 in the total femur applying World Health Organization criteria. 2. 10-YEAR FRACTURE RISK PREDICTION, FRAX: Major osteoporotic fracture (clinical spine, forearm, hip or shoulder) 4.1%. Hip fracture 0.1%. 3. Treatment Recommendations: NOF guidelines recommend consideration for treatment in postmenopausal women and men age 50 and older presenting with the following: -A hip or vertebral (clinical or morphometric) fracture. -T-score less than or equal to -2.5 at the femoral neck or spine after appropriate evaluation to exclude secondary causes. -Low bone mass at the hip or spine and a 10-year fracture probability by FRAX of greater than or equal to 3% for hip fracture or greater than or equal to 20% for major osteoporotic fracture based on the [place] adapted WHO algorithm. 4. Other Recommendations: All treatment decisions require clinical judgment and consideration of individual patient factors, including patient preferences, comorbidities, previous drug use, risk factors not captured in the FRAX model (e.g. frailty, falls, vitamin D deficiency, increased bone turnover, interval significant decline in bone density) and possible under or overestimation of fracture risk by FRAX. Additional medical evaluation for secondary cause of low bone mineral density may be appropriate. FUTURE SCAN RECOMMENDATION: People with diagnosed cases of osteoporosis or at high risk for fracture should have regular bone mineral density tests. For patients eligible for Medicare, routine testing is allowed once every 2 years. The testing frequency can be increased to one year for patients who have rapidly progressing disease, those who are receiving or discontinuing medical therapy to restore bone mass, or have additional risk factors. Electronically signed by: Nelson Newby MD 04/03/2024 08:39 AM EDT Dictated By: Nelson Newby MD Signed By: <Electronically signed by Nelson Newby MD in OV> 04/03/24 0839 DD/ 0845 TD/TT: 03/16/24 09 Chief Cook: ABUNDIO SAUCEDA thoracic spine wo con Reviewed date:04/04/2024 06:26:06 PM Interpretation: Performing Lab: Notes/Report: [address] [address] Magnetic Resonance Report Signed Patient: Selene Barry MR#: [id number] : 1955 Acct:[id number] Age/Sex: 68 / F ADM Date: 04/02/24 Loc: HO.MRI Attending Dr: Osmel MARADIAGA Ordering Physician: Osmel Mckoy Date of Service: 04/02/24 Procedure(s): MR thoracic spine wo con Accession Number(s): [id number] cc: Aaron Rob MD; Osmel Mckoy EXAMINATION: MR THORACIC SPINE WITHOUT CONTRAST CLINICAL INFORMATION: Other spondylosis with myelopathy, thoracic region COMPARISON: None available. TECHNIQUE: MRI of the thoracic spine was obtained using routine sequences without contrast. FINDINGS: Preservation of the normal thoracic kyphosis. No listhesis. Probable intraosseous hemangioma involving the majority of T8. Otherwise, no acute bone marrow abnormality. The vertebral body heights are preserved. Multilevel disc desiccation without significant disc height loss. Acute reactive endplate changes at T5-6 and C6-7 anteriorly. Multilevel endplate osteophytosis. The visualized spinal cord is normal in caliber. No abnormal cord signal. There are disc bulges at multiple levels throughout the thoracic spine. Of note, T7-8: Diffuse disc bulge. Mild spinal canal stenosis. No significant neural foraminal narrowing. T8-9: Diffuse disc bulge with superimposed right paracentral disc protrusion. There is mild to moderate spinal canal stenosis with distortion of the thecal sac an indentation of the cord. Mild right neural foraminal narrowing. T9-10: Diffuse disc bulge. Mild spinal canal stenosis. Moderate to severe left and mild right neural foraminal narrowing with impingement of the left exiting T9 nerve roots. T10-11: Diffuse disc bulge. Moderate spinal canal stenosis. Moderate to severe left and moderate right neural foraminal narrowing with mass effect on the exiting T10 nerve roots bilaterally. T11-12: Diffuse disc bulge, ligamentum flavum hypertrophy, bilateral facet arthrosis. Moderate to severe spinal canal stenosis with impingement of the cord. Severe left greater than right neural foraminal narrowing with mass effect on the exiting T11 nerve roots. The paravertebral soft tissues are unremarkable. The imaged intrathoracic and upper intra-abdominal structures are grossly within normal limits. MR/MR thoracic spine wo con IMPRESSION: -Multilevel degenerative changes of the thoracic spine, worst at T11-T12 where there is moderate to severe spinal canal stenosis with impingement of the cord and severe bilateral neural foraminal narrowing. No evidence of abnormal cord signal. -Additional multilevel degenerative changes throughout the thoracic spine as described above with moderate spinal canal stenosis at T10-T11 and mild to moderate spinal canal stenosis at T8-T9. There is moderate to severe left neural foraminal narrowing at T9-T10 and T10-T11 with impingement of the exiting left T9 and bilateral T10 nerve roots. Electronically signed by: Eliane Guzman MD 04/03/2024 03:09 PM EDT RP Dictated By: Eliane Guzman MD Signed By: <Electronically signed by Eliane Guzman MD in OV> 04/03/24 1509 DD/ 1830 TD/TT: 04/02/24 1855 Chief Cook: Complete Blood Count Auto Di ff Reviewed date:05/03/2024 12:29:13 PM Interpretation: Performing Lab:[facility], [address] [place] [phone] Notes/Report: White Blood Count 6.5 4.8-10.8 X10*3/uL Red Blood Count 5.00 4.20-5.50 X10*6/uL Hemoglobin 14.2 12.0-16.0 g/dl Hematocrit 40.8 37.0-47.0 % Mean Corpuscular Volume 81.6 80.0-98.0 fL Mean Corpuscular Hemoglobin 28.4 27.0-33.0 pg Mean Corpuscular HGB Conc 34.8 31.0-35.0 g/dl Red Cell Distribution Width 13.2 11.0-16.0 % Platelet Count 245 160-400 X10*3/uL Mean Platelet Volume 10.6 9.4-12.3 fL Neutrophils Percent Auto 47.9 45-73 % Imm Gran Pct Auto 0.2 0.0-0.4 % Lymphocytes Percent Auto 39.3 20-40 % Monocytes Percent Auto 9.2 2-11 % Eosinophils Percent Auto 2.3 0-4 % Basophils Percent Auto 1.1 0-2 % NRBC Pct Auto 0.0 0.0-0.2 /100WBC Neutrophils Absolute Auto 3.1 2.0-8.3 x10*3/u L Imm Gran Abs Auto 0.01 0.00-0.03 X10*3/uL Lymphocytes Absolute Auto 2.6 1.2-4.9 X10*3/u L Monocytes Absolute Auto 0.6 0.1-1.2 X10*3/uL Eosinophils Absolute Auto 0.2 0.0-0.4 X10*3/u L Basophils Absolute Auto 0.1 0.0-0.2 X10*3/uL NRBC Abs Auto 0.000 0.0-0.012 X10*3/uL Erythrocyte Sedimentation Ra te Reviewed date:05/03/2024 12:46:33 PM Interpretation: Performing Lab:[address] [phone] Notes/Report: Erythrocyte Sedimentation Rate 5 0-20 MM/HR Patients with polycythemia and many hemoglobin abnormalities may have depressed sed rates whereas patients with anemia may have elevated sed rates. Comprehensive Met. Panel Reviewed date:05/03/2024 12:46:22 PM Interpretation: Performing Lab:[address] [address] Notes/Report: Sodium 141 135-145 mmol/L Potassium 4.5 3.3-5.1 mmol/L Slight Hemolysis.Interpret result with caution. Chloride 108 96-108 mmol/L Carbon Dioxide 21 22-29 mmol/L Anion Gap 17 12-20 Blood Urea Nitrogen 15 9-16 mg/dL Creatinine 0.60 0.5-1.4 mg/dL Estimated Glomerular Filt Rate > 60 NOTE: For -[place] individuals, multiply the result by 1.210. Chronic Kidney Disease: Estimated GFR < 60 mL/min/1.73m2 Severe Kidney Disease: Estimated GFR < 15 mL/min/1.73m2 Glucose Random 126 60-115 mg/dL Calcium 9.5 8.4-10.2 mg/dL Bilirubin Total 0.9 0.0-1.0 mg/dL Aspartate Amino Transferase 30 5-31 U/L Slight Hemolysis.Interpret result with caution. Alanine Aminotransferase 16 0-31 U/L Total Protein 7.4 6.5-8.0 g/dL Albumin Level 4.0 3.5-5.0 g/dL Alkaline Phosphatase 125 39-117 U/L C Reactive Protein Reviewed date:05/03/2024 12:28:49 PM Interpretation: Performing Lab:[facility], [address] [place] [phone] Notes/Report: C Reactive Protein 0.61 < or = 0.50 mg/dL Hepatitis A,B,C Profile Reviewed date:05/03/2024 12:28:29 PM Interpretation: Performing Lab:[facility], [address] [place] [phone] Notes/Report: Hepatitis A Antibody IgM Nonreactive Nonreactive IgM antibodies to HAV not detected; does not exclude early acute or recovered HAV infection. Hepatitis B Surface Antibody NONREACTIVE Nonreactive Nonreactive: < 8.00 mIU/mL Hepatitis B Core Antibody Nonreactive Nonreactive Hepatitis C Antibody Nonreactive Nonreactive Antibodies to HCV not detected; does not exclude early acute HCV infection. Hepatitis B Surface Antigen Negative Negative T Spot TB Reviewed date:05/06/2024 12:59:20 PM Interpretation: Performing Lab:[facility], [address] [place] [phone] Notes/Report: TSpotTB Negative Negative A negative test result does not exclude the possibility of exposure to or infection with Mycobacterium tuberculosis (M. tuberculosis). Patients with recent exposure to TB infected individuals exhibiting a negative T-SPOT.TB result should be considered for retesting within 6 weeks or if other relevant clinical symptoms indicate. Results from T-SPOT.TB testing must be used in conjunction with each individual's epidemiological history, current medical status, and results of other diagnostic evaluations. The T-SPOT.TB test is qualitative and results are reported as positive, borderline, or negative, given that the test controls perform as expected. In line with the Centers for Disease Control and Prevention's 2010 recommendation to report quantitative measurements alongside the qualitative result, the laboratory provides spot counts for informational purposes only. The T-SPOT.TB test should not be interpreted as a quantitative test. TS Panel A 0 TS Panel B 0 TS Negative Control Passed TS Positive Control Passed For additional information, please refer to http://education.[employer]/faq/ QFD200 (This link is being provided for informational/ educational purposes only.) THIS TEST WAS PERFORMED AT: [facility]/[address] [place] [address] RACHELL OLIVAREZ MD,PHD Afshan Loi Reviewed date:06/04/2024 12:48:56 PM Interpretation: Performing Lab:[facility], [address] [place] [phone] Notes/Report: Afshan Monsivais See Note Specimen held untested for 24 hours; Call to request Chemistry testing. Liver Panel Reviewed date:06/04/2024 12:45:25 PM Interpretation: Performing Lab:[facility], [address] [place] [phone] Notes/Report: Bilirubin Total 0.9 0.0-1.0 mg/dL Bilirubin Direct 0.3 0.0-0.5 mg/dL Aspartate Amino Transferase 30 5-31 U/L Alanine Aminotransferase 16 0-31 U/L Total Protein 7.3 6.5-8.0 g/dL Albumin Level 4.0 3.5-5.0 g/dL Alkaline Phosphatase 122 39-117 U/L Glucose Fasting Reviewed date:06/04/2024 12:49:55 PM Interpretation: Performing Lab:[facility], [address] [place] [phone] Notes/Report: Glucose Fasting 109 60-99 mg/dL A fasting glucose from 100-125 mg/dl is considered impaired (pre-diabetes). Lipid Panel with Reflex Reviewed date:06/04/2024 12:45:35 PM Interpretation: Performing Lab:[facility], [address] [place] [phone] Notes/Report: Triglycerides 114 <150 mg/dL Desirable Triglyceride: [...] A1c Reviewed date:06/04/2024 12:44:41 PM Interpretation: Performing Lab:[facility], [address] [place] [phone] Notes/Report: Hemoglobin A1c % 5.3 <6.0 % [...] average glucose, using the formula of the [id number] Average Glucose study (ADAG), Diabetes Care, Vol.31,#8, Jan. 2007 REASON FOR REFERRAL No Information MEDICATIONS Medication SIG (Take, Route, Frequency, Duration) Notes Start Date End Date Status Estradiol 0.1 MG/GM as directed Vaginal Two times a Week for 30 days 10/11/2023 Active Nitrostat 0.4 MG as directed Sublingu al every 5 mins times 3 for 30 days 02/14/2018 Not-Taking Albuterol Sulfate (2.5 MG/3ML) 0.083% 3 ml Inhalation Three times a day 06/15/2012 Active Metoprolol Succinate ER 50 MG 1 tablet Orally twice a day Active Atorvastatin Calcium 80 MG Take 1 tablet by mouth once daily for 90 Active predniSONE 10 MG 1 tablet Orally Once a day for 30 day(s) Active Valtrex 1 GM 1 tablet Orally thre e times a day for 10 day(s) 05/17/2022 Not-Taking Amoxicillin-Pot Clavulanate 875-125 MG 1 tablet Orally every 12 hrs for 7 days 08/25/2023 Not-Taking Calcium + D 315-200 MG-UNIT 1 tablet Orally 500/125 once a day Active traMADol HCl 50 MG 1 tablet as needed Orally Once a day Not-Taking Aspir-81 81 MG 1 tablet Orally Once a day Active oxyCODONE HCl 5 MG 1 to 2 tablets Orall y every 6 hrs for 10 days 05/17/2022 Not-Taki ng Lasix 20 MG 1 tablet Orally Once a day Active Docusate Sodium 100 MG 1 capsule as need ed Orally Once a day Not-Taking Levothyroxine Sodium 112 MCG 1 tablet in the morning on an empty stomach Orally Once a day Active Tylenol 8 Hour Arthritis Pain 650 MG 2 tablets as needed Orally every 8 hrs Not-Taking Omeprazole 20 MG Take 1 [facility] daily for 90 Active Ventolin HFA 108 (90 Base) MCG/ACT INHALE 1 PUFF BY MOUTH EVERY 4 HOURS NEEDED for 34 Active Enbrel 50 MG/ML 1 mL Subcutaneous Active Hydrocortisone Kirt-Pramoxine 2.5-1 % 1 application to affected area as needed Rectal Two times a day for 14 days 03/23/2018 Not-Taking IMMUNIZATIONS Vaccine Route Administration Date Status Comme nts Flu Vaccine Unknown 03/04/2011 Administered Flu Vaccine Unknown 03/27/[address] Zuleyka Monroy office Flu Vaccine Unknown 04/17/[address] Loja Fluarix Quadrivalent IM Intramuscular 04/01/2014 Administered PPSV23 (Pnemovax) IM Intramuscular 10/01/2014 Administered Fluarix Quadrivalent IM Intramuscular 04/14/2015 Administered Fluarix Quadrivalent IM Intramuscular 06/04/2016 Administered Fluarix Quadrivalent IM Intramuscular 04/08/2017 Administered Fluarix Quadrivalent IM Intramuscular 03/06/2018 Administered Prevnar 13 IM Intramuscular 06/02/2018 Administered Influenza High Dose IM Intramuscular 04/03/2019 Administer ed PPSV23 (Pnemovax) IM Intramuscular 03/04/2020 Administered Fluarix Quadrivalent IM Intramuscular 03/12/2020 Administered SARS-COV-2 Moderna Unknown 10/22/2020 Administered SARS-COV-2 Moderna Unknown 11/19/2020 Administered Fluarix Quadrivalent IM Intramuscular 03/19/2021 Administered SARS-COV-2 Moderna Unknown 06/07/2021 Administered Influenza High Dose IM Intramuscular 04/08/2022 Administer ed Influenza High Dose IM Intramuscular 03/04/2023 Administer ed Influenza High Dose IM Intramuscular 04/16/2024 Administer ed Flu Vaccine Unknown 04/01/2014 Pending SOCIAL HISTORY Tobacco Use: Social History Observation Description Date Details (start date - stop date) Former Smoker NA - NA Sex Assigned At : Social History Observation Description Sex Assigned At Unknown Tobacco Use/Smoking Question Answer Notes Patient is a former smoker How long has it been since y ou last smoked? > 10 years Additional Findings: Tobacco Non-User Fo rmer smoker, currently using no form of tobacco Alcohol Screen Question Answer Notes Did you have a drink containing alcohol in the p ast year? No Points 0 Interpretation Negative PROBLEMS Problem Type ICD Code Onset Dates Problem Status W/U Status Risk SNOMED Code Notes Problem Secondary hypercoagulable state (289.82) Active confirmed Hypercoagulable state (03006886) Problem Spinal stenosis (724.00) Active confirmed Spinal stenosis (29636788) Problem Age-related osteoporosis without current pathological fracture (M81.0) Active confirmed 59422564 Problem Thyroid nodule (E04.1) Active confirmed 135556381 Problem Lymphocytosis (D72.820) Active confirmed 02723285 Problem USP (current) use of systemic steroids (Z79.52) Active confirmed 748369474448339 Problem Lumbar disc disease (M51.9) Active confirmed 72895401 Problem Essential hypertensi on (I10) Active confirmed 46879417 Problem Mild intermittent asthma without complication (J45.20) Active confirmed 868165974 Problem Prediabetes (R73.09) Active confirmed 9 687304 Problem Chronic systolic congestive heart failure (I50.22) Active confirmed 859327205 Problem Hyperthyroidism (E05.90) Active confirmed 93931972 Problem Rheumatoid arthritis involving multiple sites, 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) Active confirmed 877799346 Problem Graves disease (E05.00) Active confirmed 130393128 Problem History of coronary artery bypass graft (Z95.1) Active confirmed 056258572 Problem Thyromegaly (E04.9) Active confirmed 37 66179 Problem Non-rheumatic mitral regurgitation (I34.0) Active confirmed 363650668 Problem Thyroid cancer (C73) Active confirmed 3 76382328 Problem Vaginal bleeding (N93.9) Active confirmed 671286105 Problem Sciatica of right si de (M54.31) Active confirmed 00311888 Problem Hypercholesterolemia (E78.00) Active confirmed 32535363 Problem Coronary artery disease of [place] artery of [place] heart with stable angina pectoris (I25.118) Active confirmed 5694055216652 Problem Atrophy of vagina (N95.2) Active confirmed 475548914 VITAL SIGNS Blood pressure diastolic 80 mm Hg 10/11/2023 doroteo ght is up 8 pounds since 05-27-23 Height 63.5 in 10/11/2023 weight is up 8 pounds since 05-27-23 Blood pressure systolic 138 mm Hg 10/11/2023 weig ht is up 8 pounds since 05-27-23 Weight 184 lbs 10/11/2023 weight is up 8 pounds since 05-27-23 BMI 32.08 kg/m2 10/11/2023 weight is up 8 pounds since 05-27-23 Encounters Encounter Location Date Provider Diagnosis Aaron Rob MD [address] [place] [id number] 10/11/2023 Aaron Rob Microscopic hematuri a R31.29 ; Atrophy of vagina N95.2 ; Essential hypertension I10 ; Hyperthyroidism E05.90 ; Prediabetes R73.09 ; Mild intermittent asthma without complication J45.20 ; Chronic systolic congestive heart failure I50.22 ; Hypercholesterolemia E78.00 and Depression screening Z13.31 Aaron Rob MD [address] [place] [id number] 10/03/2023 Aaron Rob Essential hypertensi on I10 ; Lymphocytosis D72.820 ; Thyromegaly E04.9 ; Chronic systolic congestive heart failure I50.22 ; Hypercholesterolemia E78.00 and Prediabetes R73.09 Aaron Rob MD [address] [place] [address] [id number] 10/24/2023 Aaron Rob Hematuria R31.9 Aaron Rob MD [address] [place] [id number] 06/04/2024 Aaron Rob Prediabetes R73.09 a nd Hypercholesterolemia E78.00 Aaron Rob MD [address] [place] [address] [id number] 11/11/2023 Aaron Rob Hematuria, unspecifi ed type R31.9 Aaron Rob MD [address] [place] [address] [id number] 04/16/2024 Aaron Rob Encounter for administration of vaccine Z23 Aaron Rob MD [address] [place] [address] [id number] 10/24/2023 Aaron Rob Colon cancer screeni ng Z12.11 Aaron Rob MD [address] [place] [address] [place] [id number] 08/25/2023 Aaron Rob Bilateral otitis med ia, unspecified otitis media type H66.93 ASSESSMENTS Encounter Date Diagnosis Assessment Notes Treatment Notes Treatment Clinical Notes 10/11/2023 Microscopic hematuri a (ICD-10 - R31.29) has been evaluated by gu 10/11/2023 Atrophy of vagina (I CD-10 - N95.2) 10/03/2023 Lymphocytosis (ICD-1 0 - D72.820) 10/03/2023 Essential hypertensi on (ICD-10 - I10) 06/04/2024 Prediabetes (ICD-10 - R73.09) 06/04/2024 Hypercholesterolemia (ICD-10 - E78.00) 11/11/2023 Hematuria, unspecifi ed type (ICD-10 - R31.9) 04/16/2024 Encounter for administration of vaccine (ICD-10 - Z23) 10/24/2023 Colon cancer screeni ng (ICD-10 - Z12.11) 08/25/2023 Bilateral otitis med ia, unspecified otitis media type (ICD-10 - H66.93) patient verbalized understanding of medication and directions 10/11/2023 Essential hypertensi on (ICD-10 - I10) well controlled, will continue current regiment and will continue to monitor 10/03/2023 Thyromegaly (ICD-10 - E04.9) 10/24/2023 Hematuria (ICD-10 - R31.9) 10/11/2023 Hyperthyroidism (ICD -10 - E05.90) doing well, will continue current regiment 10/03/2023 Chronic systolic congestive heart failure (ICD-10 - I50.22) 10/11/2023 Prediabetes (ICD-10 - R73.09) stable, no need for medication at this time 10/03/2023 Hypercholesterolemia (ICD-10 - E78.00) 10/11/2023 Mild intermittent as thma without complication (ICD-10 - J45.20) stable, will continue current regiment 10/03/2023 Prediabetes (ICD-10 - R73.09) 10/11/2023 Chronic systolic congestive heart failure (ICD-10 - I50.22) stable, will continue current regiment 10/11/2023 Hypercholesterolemia (ICD-10 - E78.00) doing well, will continue current regiment 10/11/2023 Depression screening (ICD-10 - Z13.31) negative screen PLAN OF TREATMENT Pending Test Test Name Order Date Electrocardiogram (EKG) 06/07/2019 XR CHEST 2 VIEW PA & LAT 05/23/2023 BONE DENSITY DEXA 07/03/2021 Next Appt Details Provider Name:Aaron Atkinson ier, 06/11/2024 09:00:00 AM, [address] [place] [address], [address], [phone], Provider Name:Aaron Atkinson ier, 10/04/2024 07:45:00 AM, [address] [place] [address], [address], [phone], Provider Name:Aaron Atkinson ier, 10/11/2024 11:00:00 AM, [address] [place] [address], [address], [phone], Insurance Providers Payer Name Payer Address Payer Phone Subscriber Number Group Number Insured Name Patient Relationship to Insured Coverage Start Date Coverage End Date [employer] [address] [place] [address] [id number] TracySelene gray Self - patient is the insured [place] [phone] [id number] Selene Valdovinos Self - patient is the insured MEDICAL (GENERAL) HISTORY Medical History History ICD Code colonoscopy - 03/2008 hyperp lastic polyp due 03/[address] Lan; Colonoscopy done 07/14/[address] 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
== END 2024-06-04 11:10 | disposition home or self-care (01) ==
LOC: HO.LNP 11:09
PROVIDERS: Visit Provider Internal Medicine
DX: R73.09 Other abnormal glucose (principal); E78.00 Pure hypercholesterolemia, unspecified
CPT/HCPCS: 80061; 80076; 82947; 83036

== ENCOUNTER 2024-06-29 13:23 | Outpatient (REF) | payer MEDICARE, SELFPAY ==
--- NOTE | ~2024-06-29 | XR_ITS ---
CLINICAL HISTORY: Acute URI Chest two views Comparison: None Findings: Interstitial prominence of uncertain chronicity. No venous distention or overt pulmonary edema. No consolidation or pleural effusion. Upper normal heart size. Median sternotomy changes. Normal mediastinal contour with trachea midline. No acute appearing bone abnormality. Upper abdomen unremarkable. Impression: No focal infiltrate/consolidation. Interstitial prominence of uncertain chronicity. Can not exclude interstitial pneumonitis. This document has been electronically signed by: Leon Grajeda MD on 07/02/2024 10:55:02
--- OUTSIDE RECORDS SUMMARY | 2024-06-29 14:57 | XMS_ITS ---
Author Organization Aaron Rob MD Address [address] [place] [phone] Care Team Providers Care Salesperson Household Appliances Name Role Phone Aaron Rob Primary Care Provider ALLERGIES No Known Allergies REASON FOR VISIT coughing congested will test covid, tested for Covid 2 times negative once this AM, c/o fatigue, productive cough, SOB, muscle aches, congestion nauseau x 1 week, Video [phone] MEDICATIONS Medication SIG (Take, Route, Frequency, Duration) Notes Start Date End Date Status Tylenol 8 Hour Arthritis Pain 650 MG 2 tablets as needed Orally every 8 hrs Not-Taking Docusate Sodium 100 MG 1 capsule as need ed Orally Once a day Not-Taking traMADol HCl 50 MG 1 tablet as needed Orally Once a day Not-Taking Hydrocortisone Kirt-Pramoxine 2.5-1 % 1 application to affected area as needed Rectal Two times a day for 14 days 03/23/2018 Not-Taking Nitrostat 0.4 MG as directed Sublingu al every 5 mins times 3 for 30 days 02/14/2018 Not-Taking predniSONE 10 MG 1 tablet with food o r milk Orally 4 tabs for 3 days,3tabs for 3 days, 2 tabs for 3 days, and 1 tab for 3 days for 14 days 06/21/2024 Active Valtrex 1 GM 1 tablet Orally thre e times a day for 10 day(s) 05/17/2022 Not-Taking oxyCODONE HCl 5 MG 1 to 2 tablets Orall y every 6 hrs for 10 days 05/17/2022 Not-Taki ng Enbrel 50 MG/ML 1 mL Subcutaneous Active Amoxicillin-Pot Clavulanate 875-125 MG 1 tablet Orally every 12 hrs for 7 days 08/25/2023 Not-Taking Zithromax Z-Antonio 250 MG 2 tablet on the irst day, then 1 tablet daily for 4 days Orally Once a day for 5 day(s) 06/21/2024 Active Ventolin HFA 108 (90 Base) MCG/ACT INHALE 1 PUFF BY MOUTH EVERY 4 HOURS NEEDED for 34 Active Metoprolol Succinate ER 50 MG 1 tablet Orally twice a day Active Estradiol 0.1 MG/GM as directed Vaginal Two times a Week for 30 days 10/11/2023 Active Atorvastatin Calcium 80 MG Take 1 tablet by mouth once daily for 90 Active Lasix 20 MG 1 tablet Orally Once a day Active Omeprazole 20 MG Take 1 capsule by [facility] once daily for 90 Active Albuterol Sulfate (2.5 MG/3ML) 0.083% 3 ml Inhalation Three times a day 06/15/2012 Active Aspir-81 81 MG 1 tablet Orally Once a day Active Calcium + D 315-200 MG-UNIT 1 tablet Orally 500/125 once a day Active Synthroid 100 MCG 1 tablet in the morn ing on an empty stomach Orally Once a day for 30 day(s) Active VITAL SIGNS BMI 31.91 kg/m2 06/21/2024 Height 63.5 in 06/21/2024 Weight 183 lbs 06/21/2024 weight at home is 183 B not taken at home no temp Encounters Encounter Location Date Provider Diagnosis Aaron Rob MD [address] [place] [address] [place] [phone] 06/21/2024 Aaron Rob Mild intermittent asthma without complication J45.20 ASSESSMENTS Encounter Date Diagnosis Assessment Notes Treatment Notes Treatment Clinical Notes 06/21/2024 Mild intermittent asthma without complication (ICD-10 - J45.20) PLAN OF TREATMENT Medication Medication Name Sig Start Date Stop Date Notes predniSONE 10 MG 1 tablet with food o r milk Orally 4 tabs for 3 days,3tabs for 3 days, 2 tabs for 3 days, and 1 tab for 3 days for 14 days 06/21/2024 Zithromax Z-Antonio 250 MG 2 tablet on the f irst day, then 1 tablet daily for 4 days Orally Once a day for 5 day(s) 06/21/2024 Next Appt Details Provider Name:Aaron Edi China deleon, 10/04/2024 07:45:00 AM, [address] [place] [address], [place] [address], [place], [place], [phone], Provider Name:Aaron Edi China deleon, 10/11/2024 11:00:00 AM, [address] [place] [address], [place] [address], [place], [place], [phone], Progress Notes * Examination Category Sub-Category Detail Notes General Examination GENERAL APPEARANCE: alert, w ell hydrated, in no distress History and Physical Notes * HPI (History of Present Illness) Category Sub-Category Detail Notes Symptom(s) Telehealth Location of [facility] rendering [facility]:: [address] [place] [address], [facility] Location of patient:: at address listed in demographics for today's visit Patient identification confirmed using:: Name, , SSN, Insurance information Telehealth method:: Video co nference where patient is visible to the provider of care Consent:: Patient verbally c onsented to treatment, Patient verbally consented to billing insurance company, Patient informed of any privacy concerns related to method of visit
--- OUTSIDE RECORDS SUMMARY | 2024-06-29 14:57 | XMS_ITS ---
Author Organization Aaron Rob MD Address [address] [place] [phone] Care Team Providers Care Civil Celebrant Name Role Phone Aaron Rob Primary Care Provider ALLERGIES No Known Allergies REASON FOR VISIT still coughing, c/o chills, nonproductive cough, fatigue SOB, congestion , finished antibiotics still has 3 days of Prednisone, Video [phone] MEDICATIONS Medication SIG (Take, Route, Frequency, Duration) Notes Start Date End Date Status Docusate Sodium 100 MG 1 capsule as need ed Orally Once a day Not-Taking Tylenol 8 Hour Arthritis Pain 650 MG 2 tablets as needed Orally every 8 hrs Not-Taking Nitrostat 0.4 MG as directed Sublingu al every 5 mins times 3 for 30 days 02/14/2018 Not-Taking Hydrocortisone Kirt-Pramoxine 2.5-1 % 1 application to affected area as needed Rectal Two times a day for 14 days 03/23/2018 Not-Taking Guaiatussin AC 100-10 MG/5ML 10 mL as needed Orally every 4 hrs for 10 days 06/29/2024 Active traMADol HCl 50 MG 1 tablet as needed Orally Once a day Not-Taking oxyCODONE HCl 5 MG 1 to 2 tablets Orall y every 6 hrs for 10 days 05/17/2022 Not-Taki ng Valtrex 1 GM 1 tablet Orally thre e times a day for 10 day(s) 05/17/2022 Not-Taking Amoxicillin-Pot Clavulanate 875-125 MG 1 tablet Orally every 12 hrs for 7 days 08/25/2023 Not-Taking Omeprazole 20 MG Take 1 capsule by [facility] once daily for 90 Active Ventolin HFA 108 (90 Base) MCG/ACT INHALE 1 PUFF BY MOUTH EVERY 4 HOURS NEEDED for 34 Active Enbrel 50 MG/ML 1 mL Subcutaneous Active Metoprolol Succinate ER 50 MG 1 tablet Orally twice a day Active predniSONE 10 MG 1 tablet with food o r milk Orally 4 tabs for 3 days,3tabs for 3 days, 2 tabs for 3 days, and 1 tab for 3 days for 14 days 06/21/2024 Active Atorvastatin Calcium 80 MG Take 1 tablet by mouth once daily for 90 Active Estradiol 0.1 MG/GM as directed Vaginal Two times a Week for 30 days 10/11/2023 Active Albuterol Sulfate (2.5 MG/3ML) 0.083% 3 ml Inhalation Three times a day 06/15/2012 Active Lasix 20 MG 1 tablet Orally Once a day Active Calcium + D 315-200 MG-UNIT 1 tablet Orally 500/125 once a day Active Synthroid 100 MCG 1 tablet in the morn ing on an empty stomach Orally Once a day for 30 day(s) Active Aspir-81 81 MG 1 tablet Orally Once a day Active VITAL SIGNS BMI 31.91 kg/m2 06/29/2024 Blood pressure systolic 162 mm Hg 06/29/19 25 Blood pressure diastolic 61 mm Hg 025 Height 63.5 in 06/29/2024 Weight 183 lbs 06/29/2024 weight is 183 at home BP 162 /61 no temp Encounters Encounter Location Date Provider Diagnosis Aaron Rob MD [address] [place] [address] Drive [address] [place], [place] [phone] 06/29/2024 Aaron Rob Acute URI J06.9 ASSESSMENTS Encounter Date Diagnosis Assessment Notes Treatment Notes Treatment Clinical Notes 06/29/2024 Acute URI (ICD-10 - J06.9) THE XRAY [place] WAS [place] [facility] PATIENT AWARE, patient verbalized understanding of medication and directions for use, pending diagnostic testing PLAN OF TREATMENT Medication Medication Name Sig Start Date Stop Date Notes Guaiatussin AC 100-10 MG/5ML 10 mL as ne eded Orally every 4 hrs for 10 days 06/29/2024 Treatment Notes Assessment Notes Acute URI THE XRAY ORDER WAS F AX[place] [facility] PATIENT AWARE, patient verbalized understanding of medication and directions for use, pending diagnostic testing Pending Test Test Name Order Date XR CHEST 2 VIEW PA & LAT 06/29/2024 Next Appt Details Provider Name:Aaron deleon, 10/04/2024 07:45:00 AM, [address] [place] [address], Suite [facility], [place], [place], [phone], Provider Name:Aaron deleon, 10/11/2024 11:00:00 AM, [address] [place] [address], [address], [place], [place], [phone], Progress Notes * Examination Category Sub-Category Detail Notes General Examination GENERAL APPEARANCE: alert, w ell hydrated, in no distress History and Physical Notes * HPI (History of Present Illness) Category Sub-Category Detail Notes Symptom(s) Telehealth Location of [facility] rendering [facility]:: [address] [place] [address], [address] Location of patient:: at address listed [...]
--- OUTSIDE RECORDS SUMMARY | 2024-06-29 14:57 | XMS_ITS ---
Author Organization Aaron Rob MD Address [address] [place] [phone] Care Team Providers Care Lab Technician Name Role Phone Aaron Rob Primary Care Provider [phone] ALLERGIES No Known Allergies REASON FOR VISIT 6 month MEDICATIONS Medication SIG (Take, Route, Frequency, Duration) Notes Start Date End Date Status Metoprolol Succinate ER 50 MG 1 tablet Orally twice a day Active Enbrel 50 MG/ML 1 mL Subcutaneous Active Nitrostat 0.4 MG as directed Sublingu al every 5 mins times 3 for 30 days 02/14/2018 Not-Taking oxyCODONE HCl 5 MG 1 to 2 tablets Orall y every 6 hrs for 10 days 05/17/2022 Not-Taki ng traMADol HCl 50 MG 1 tablet as needed Orally Once a day Not-Taking Tylenol 8 Hour Arthritis Pain 650 MG 2 tablets as needed Orally every 8 hrs Not-Taking Docusate Sodium 100 MG 1 capsule as need ed Orally Once a day Not-Taking Hydrocortisone Kirt-Pramoxine 2.5-1 % 1 application to affected area as needed Rectal Two times a day for 14 days 03/23/2018 Not-Taking Valtrex 1 GM 1 tablet Orally thre e times a day for 10 day(s) 05/17/2022 Not-Taking Estradiol 0.1 MG/GM as directed Vaginal Two times a Week for 30 days 10/11/2023 Active Atorvastatin Calcium 80 MG Take 1 tablet by mouth once daily for 90 Active Ventolin HFA 108 (90 Base) MCG/ACT INHALE 1 PUFF BY MOUTH EVERY 4 HOURS NEEDED for 34 Active Amoxicillin-Pot Clavulanate 875-125 MG 1 tablet Orally every 12 hrs for 7 days 08/25/2023 Not-Taking Aspir-81 81 MG 1 tablet Orally Once a day Active Calcium + D 315-200 MG-UNIT 1 tablet Orally 500/125 once a day Active Lasix 20 MG 1 tablet Orally Once a day Active Omeprazole 20 MG Take [address] [facility] once daily for 90 Active Albuterol Sulfate (2.5 MG/3ML) 0.083% 3 ml Inhalation Three times a day 06/15/2012 Active Synthroid 100 MCG 1 tablet in the morn ing on an empty stomach Orally Once a day for 30 day(s) Active PROBLEMS Problem Type ICD Code Onset Dates Problem Status W/U Status Risk SNOMED Code Notes Problem Vaginal prolapse (N81.10) Active confirmed [id number] VITAL SIGNS BMI 32.43 kg/m2 06/11/2024 Blood pressure systolic 152 mm Hg 06/11/20 24 Blood pressure diastolic 70 mm Hg 024 Height 63.5 in 06/11/2024 Weight 186 lbs 06/11/2024 weight is up 2 pounds since 10-11-23 Encounters Encounter Location Date Provider Diagnosis Aaron Rob MD [address] [place], [place] [phone] 06/11/2024 Aaron Rob Vaginal prolapse N81.10 ; Essential hypertension I10 and Rheumatoid arthritis involving multiple sites, unspecified rheumatoid factor presence M06.9 ASSESSMENTS Encounter Date Diagnosis Assessment Notes Treatment Notes Treatment Clinical Notes 06/11/2024 Vaginal prolapse (ICD-10 - N81.10) is trying to decide if surgery or pessary. will try pessary, 06/11/2024 Essential hypertension (ICD-10 - I10) running a little highwill continue current regiment and will contiue to monitor 06/11/2024 Rheumatoid arthritis involving multiple sites, unspecified rheumatoid factor presence (ICD-10 - M06.9) doing better on embrel, will continue current regiment PLAN OF TREATMENT Medication Medication Name Sig Start Date Stop Date Notes Metoprolol Succinate ER 50 MG 1 tablet Orally twice a day Enbrel 50 MG/ML 1 mL Subcutaneous Treatment Notes Assessment Notes Vaginal prolapse is trying to decide if surgery or pessary. will try pessary, Essential hypertension running a little highwill continue current regiment and will contiue to monitor Rheumatoid arthritis involvi ng multiple sites, unspecified rheumatoid factor presence doing better on embrel, will continue current regiment Next Appt Details Provider Name:Aaron deleon, 10/04/2024 07:45:00 AM, [address] [place] [address], [address], [place], [phone], Provider Name:Aaron deleon, 10/11/2024 11:00:00 AM, [address] [place] [address], [address], [place], [place], [phone], Progress Notes * Examination Category Sub-Category Detail Notes General Examination GENERAL APPEARANCE: alert, w ell hydrated, in no distress HEAD: normocephalic EARS: BOTH EARS , normal HEART: regular rate and rhy thm , no murmurs, rubs, gallops LUNGS: no wheezes, rales, r [place] , good air movement , clear to auscultation bilaterally SKIN: good turgor
--- OUTSIDE RECORDS SUMMARY | 2024-06-29 14:58 | XMS_ITS | Patient Health Record ---
Author Organization Aaron Rob MD Address [address] [place] [phone] Care Team Providers Care Character Actor Name Role Phone Aaron Rob Primary Care Provider [phone] ALLERGIES No Known Allergies RESULTS Component Value Reference Range Notes Complete Blood Count Auto Di ff Reviewed date:07/14/2023 12:05:55 PM Interpretation: Performing Lab:[facility], [address] [place] [phone] Notes/Report: White Blood Count 5.7 4.8-10.8 X10*3/uL [...] te Reviewed date:07/14/2023 12:10:14 PM Interpretation: Performing Lab:[facility], [address] [place] [phone] Notes/Report: Erythrocyte Sedimentation Rate 2 0-20 MM/HR Patients with polycythemia and many hemoglobin abnormalities may have depressed sed rates whereas patients with anemia may have elevated sed rates. Comprehensive Met. Panel Reviewed date:07/14/2023 12:13:22 PM Interpretation: Performing Lab:[address] [address] Notes/Report: Sodium 144 135-145 mmol/L Potassium 3.9 3.3-5.1 mmol/L Chloride 106 96-108 mmol/L Carbon Dioxide 29 22-29 mmol/L Anion Gap 13 12-20 Blood Urea Nitrogen 17 9-16 mg/dL Creatinine 0.67 0.5-1.4 mg/dL Estimated Glomerular Filt Rate > 60 NOTE: For -Grenadian individuals, multiply the result by 1.210. Chronic [...] Protein Reviewed date:07/14/2023 11:49:12 AM Interpretation: Performing Lab:[address] [phone] Notes/Report: C Reactive Protein 0.20 < or = 0.50 mg/dL Hold Gold Reviewed date:10/04/2023 02:25:54 PM Interpretation: Performing Lab:[address] [address] Notes/Report: Hold Gold See Note Specimen held untested for 24 hours; Call to request Chemistry testing. Urine Culture Reviewed date:10/04/2023 02:33:59 PM Interpretation: Performing Lab:[address] [address] Notes/Report: Urine Culture No growth. Complete Blood Count Auto Di ff Reviewed date:10/04/2023 02:49:19 PM Interpretation: Performing Lab:[address] [address] Notes/Report: White Blood Count 6.9 4.8-10.8 X10*3/uL [...] NRBC Abs Auto 0.000 0.0-0.012 X10*3/uL Comprehensive [place]. Panel Fa st Reviewed date:10/04/2023 02:51:23 PM Interpretation: Performing Lab:[facility], [address] [place] [address] Notes/Report: Sodium 143 135-145 mmol/L Potassium 4.1 3.3-5.1 mmol/L Chloride 110 96-108 mmol/L Carbon Dioxide 28 22-29 mmol/L Anion Gap 9 12-20 Blood Urea Nitrogen 23 9-16 mg/dL Creatinine 0.65 0.5-1.4 mg/dL Estimated Glomerular Filt Rate > 60 NOTE: For -Grenadian individuals, multiply the result by 1.210. Chronic [...] Panel Reviewed date:10/04/2023 02:25:35 PM Interpretation: Performing Lab:[facility], [address] [place] [address] Notes/Report: Triglycerides 142 <150 mg/dL Desirable Triglyceride: [...] T4 Reviewed date:10/04/2023 02:23:24 PM Interpretation: Performing Lab:[facility], [address] [place] [address] Notes/Report: TSH reflex Free T4 0.95 0.32-4.0 uIU/mL Microalbumin, Random Reviewed date:10/04/2023 02:25:46 PM Interpretation: Performing Lab:[facility], [address] [place] [phone] Notes/Report: Creatinine Urine 157.12 Microalbumin Urine 26.0 Microalbum/Creatinine Ratio Ur 16.5 <30 ug/mg cr Albumin/Creatinine Ratio Reference Ranges: Normal: < 30 ug/mg creatinine Microalbuminuria: 30 - 300 ug/mg creatinine Clinical Albuminuria: > 300 ug/mg creatinine Hemoglobin A1c Reviewed date:10/04/2023 02:25:18 PM Interpretation: Performing Lab:[address] [address] Notes/Report: Hemoglobin A1c % 5.2 <6.0 % [...] average glucose, using the formula of the V3Q-Gazzqlm Average Glucose study (ADAG), Diabetes Care, Vol.31,#8, Jan. 2007 UA ClnCatch+Micro w/rflx Cul t Reviewed date:10/04/2023 02:42:40 PM Interpretation: Performing Lab:[address] [address] Notes/Report: Urine, Clean Catch Color Urine Yellow Appearance Urine Cloudy PH 5.5 5.0-9.0 Glucose Urine UA Negative Negative mg/dL Urine Blood Trace Negative Specific [place] - Urine >= 1.030 1.005-1.025 Urine Protein [...] Culture Reviewed date:10/25/2023 11:19:20 AM Interpretation: Performing Lab:[address] [address] Notes/Report: Urine Culture Report Result Urine Culture < 10,000 cfu/ml UA ClnCatch+Micro w/rflx Cul t Reviewed date:10/25/2023 07:32:44 AM Interpretation: Performing Lab:[address] [address] Notes/Report: Urine, Clean Catch Color Urine Yellow Appearance Urine Cloudy PH 6.5 5.0-9.0 Glucose Urine UA Negative Negative mg/dL Urine Blood Trace Negative Specific [place] - Urine 1.010 1.005-1.025 Urine Protein Negative [...] Culture Reviewed date:11/12/2023 06:27:53 PM Interpretation: Performing Lab:[facility], [address] [place] [phone] Notes/Report: Urine Culture Report Result Urine Culture 10,000 to 50,000 cfu/ml Urine Culture Mixed bacterial herson a characteristic of Urine Culture urogenital contamination. UA ClnCatch+Micro w/rflx Cul t Reviewed date:11/12/2023 06:36:15 PM Interpretation: Performing Lab:[facility], [address] [place] [phone] Notes/Report: Urine, Clean Catch Color Urine Yellow Appearance Urine Clear PH 7.0 5.0-9.0 Glucose Urine UA Negative Negative mg/dL Urine Blood Negative Negative Specific [place] - Urine 1.015 1.005-1.025 Urine Protein Negative [...] ff Reviewed date:01/23/2024 12:45:16 PM Interpretation: Performing Lab:[address] [address] Notes/Report: White Blood Count 6.1 4.8-10.8 X10*3/uL [...] te Reviewed date:01/23/2024 12:09:33 PM Interpretation: Performing Lab:[facility], [address] [place] [phone] Notes/Report: Erythrocyte Sedimentation Rate 2 0-20 MM/HR Patients with polycythemia and many hemoglobin abnormalities may have depressed sed rates whereas patients with anemia may have elevated sed rates. Comprehensive Met. Panel Reviewed date:01/23/2024 12:12:34 PM Interpretation: Performing Lab:[facility], [address] [place] [phone] Notes/Report: Sodium 141 135-145 mmol/L Potassium 4.0 3.3-5.1 mmol/L Chloride 110 96-108 mmol/L Carbon Dioxide 22 22-29 mmol/L Anion Gap 13 12-20 Blood Urea Nitrogen 20 9-16 mg/dL Creatinine 0.67 0.5-1.4 mg/dL Estimated Glomerular Filt Rate > 60 NOTE: For -Grenadian individuals, multiply the result by 1.210. Chronic [...] Protein Reviewed date:01/23/2024 12:09:42 PM Interpretation: Performing Lab:[facility], [address] [place] [phone] Notes/Report: C Reactive Protein 0.22 < or = 0.50 mg/dL XR knee LT 3V Reviewed date:04/27/2024 05:15:34 PM Interpretation: Performing Lab: Notes/Report: [address] [address] XRay Report Signed Patient: Selene Barry MR#: [id number] : 1955 Acct:[id number] Age/Sex: 68 / F ADM Date: 02/03/24 Loc: [facility] Attending Dr: Kasey LUKE Ordering Physician: Kasey Wesley Date of Service: 02/03/24 Procedure(s): XR knee LT 3V Accession Number(s): [id number] cc: Aaron Rob MD; Kasey Wesley EXAMINATION: [...] 04/27/24 1138 DD/ 0954 TD/TT: 02/03/24 1022 Photo Lab Technician: XR foot LT min 3V Reviewed date:04/27/2024 11:59:11 AM Interpretation: Performing Lab: Notes/Report: [address] [address] XRay Report Signed Patient: Selene Barry MR#: [id number] : 1955 Acct:[id number] Age/Sex: 68 / F ADM Date: 02/03/24 Loc: CARM[facility] Attending Dr: Kasey LUKE Ordering Physician: Kasey Wesley Date of Service: 02/03/24 Procedure(s): XR foot LT min 3V Accession Number(s): [id number] cc: Aaron Rob MD; Kasey Wesley EXAMINATION: [...] 04/27/24 1045 DD/ 0954 TD/TT: 02/03/24 1022 Photo Lab Technician: XR lumbar spine 4V min Reviewed date:04/11/2024 06:48:51 PM Interpretation: Performing Lab: Notes/Report: [address] [address] XRay Report Signed Patient: Selene Barry MR#: [id number] : 1955 Acct:[id number] Age/Sex: 68 / F ADM Date: 02/03/24 Loc: HO.SUSAN Attending Dr: Kasey LUKE Ordering Physician: Kasey Wesley Date of Service: 02/03/24 Procedure(s): XR lumbar spine 4V min Accession Number(s): [id number] cc: Aaron Rob MD; Kasey Wesley EXAMINATION: [...] 04/09/24 0840 DD/ 0954 TD/TT: 02/03/24 1022 Photo Lab Technician: RONALD MR lumbar spine wo con Reviewed date:03/15/2024 12:30:31 PM Interpretation: Performing Lab: Notes/Report: [address] [address] Magnetic Resonance Report Signed Patient: Selene Barry MR#: [id number] 3611 : 1955 Acct:[id number] Age/Sex: 68 / F ADM Date: 03/14/24 Loc: HO.MRI Attending Dr: Kasey LUKE Ordering Physician: Kasey Wesley Date of Service: 03/14/24 Procedure(s): MR lumbar spine wo con Accession Number(s): [id number] cc: Aaron Rob MD; Kasey Wesley EXAMINATION: MR LUMBAR SPINE WITHOUT CONTRAST CLINICAL [...] OV> 03/15/24 1001 DD/ 10 TD/TT: 03/14/242027 Photo Lab Technician: MARIA ISABEL VASQUEZ tomosynthesis screening B I Reviewed date:03/28/2024 03:56:48 PM Interpretation: Performing Lab: Notes/Report: [place] [place] [address] Mammography Report Signed Patient: Selene Barry MR#: [id number] : 1955 Acct:[id number] Age/Sex: 68 / F ADM Date: 03/16/24 Loc: HO.MAMMO Attending Dr: Power Becker MD Ordering Physician: Power Becker MD Results: 1Negativ e Date of Service: 03/16/24 Follow Up: 1 Year From Orig inal Mammogram Procedure(s): MM tomosynthesis screening BI Accession Number(s): [id number] cc: Aaron Rob MD; Power Becker MD [...] 03/28/24 1159 DD/ 0830 TD/TT: 03/16/24 0840 Photo Lab Technician: XR DEXA axial skeleton Reviewed date:04/03/2024 02:11:53 PM Interpretation: Performing Lab: Notes/Report: [address] [place] [address] Mammography Report Signed Patient: Selene Barry MR#: [id number] 3611 : 1955 Acct:[id number] Age/Sex: 68 / F ADM Date: 03/16/24 Loc: SHOAIB Attending Dr: Power Becker MD Ordering Physician: Power Becker MD Results: Date of Service: 03/16/24 Follow Up: Procedure(s): XR DEXA axial skeleton Accession Number(s): [id number] cc: Aaron Rob MD; Power Becker MD EXAMINATION: BONE DENSITOMETRY CLINICAL INDICATION: Menopause. COMPARISON: Previous BD dated 10/09/2021 and baseline BD dated 10/05/2016. TECHNIQUE: Using a [employer] DXA System (software version: 13.1) manufactured by [employer], dual-energy x-ray absorptiometry was performed of the [...] 04/03/24 0839 DD/ 0845 TD/TT: 03/16/24 09 Photo Lab Technician: ABUNDIO SAUCEDA thoracic spine wo con Reviewed date:04/04/2024 06:26:06 PM Interpretation: Performing Lab: Notes/Report: [address] [address] Magnetic Resonance Report Signed Patient: Selene Barry MR#: [id number] 3611 : 1955 Acct:[id number] Age/Sex: 68 / F ADM Date: 04/02/24 Loc: HO.MRI Attending Dr: Osmel MARADIAGA Ordering Physician: Osmel Mckoy Date of Service: 04/02/24 Procedure(s): MR thoracic spine wo con Accession Number(s): [id number] cc: Aaron Rob MD; Osmel Mckoy EXAMINATION: [...] 04/03/24 1509 DD/ 1830 TD/TT: 04/02/24 1855 Photo Lab Technician: Complete Blood Count Auto Di ff Reviewed date:05/03/2024 12:29:13 PM Interpretation: Performing Lab:[facility], [address] [place] [phone] Notes/Report: White Blood Count 6.5 4.8-10.8 X10*3/uL [...] te Reviewed date:05/03/2024 12:46:33 PM Interpretation: Performing Lab:[address] [address] Notes/Report: Erythrocyte Sedimentation Rate 5 0-20 MM/HR Patients with polycythemia and many hemoglobin abnormalities may have depressed sed rates whereas patients with anemia may have elevated sed rates. Comprehensive Met. Panel Reviewed date:05/03/2024 12:46:22 PM Interpretation: Performing Lab:[address] [address] Notes/Report: Sodium 141 135-145 mmol/L Potassium 4.5 3.3-5.1 mmol/L Slight Hemolysis.Interpret result with caution. Chloride 108 96-108 mmol/L Carbon Dioxide 21 22-29 mmol/L Anion Gap 17 12-20 Blood Urea Nitrogen 15 9-16 mg/dL Creatinine 0.60 0.5-1.4 mg/dL Estimated Glomerular Filt Rate > 60 NOTE: For -Grenadian individuals, multiply the result by 1.210. Chronic [...] Protein Reviewed date:05/03/2024 12:28:49 PM Interpretation: Performing Lab:[facility], [address] [place] [phone] Notes/Report: C Reactive Protein 0.61 < or = 0.50 mg/dL Hepatitis A,B,C Profile Reviewed date:05/03/2024 12:28:29 PM Interpretation: Performing Lab:[facility], [address] [place] [phone] Notes/Report: Hepatitis A Antibody IgM Nonreactive Nonreactive [...] TB Reviewed date:05/06/2024 12:59:20 PM Interpretation: Performing Lab:[facility], [address] [place] [phone] Notes/Report: TSpotTB Negative Negative A negative test [...] Passed For additional information, please refer to http://education.Aquaspy/faq/ [email or web address] (This link is being provided for informational/ educational purposes only.) THIS TEST WAS PERFORMED AT: [facility]/[address] [place] [place] [address] RACHELL OLIVAREZ MD,PHD Afshan Loi Reviewed date:06/04/2024 12:48:56 PM Interpretation: Performing Lab:[facility], [address] [place] [phone] Notes/Report: Afshan Monsivais See Note Specimen held untested for 24 hours; Call to request Chemistry testing. Liver Panel Reviewed date:06/04/2024 12:45:25 PM Interpretation: Performing Lab:[facility], [address] [place] [address] Notes/Report: Bilirubin Total 0.9 0.0-1.0 mg/dL Bilirubin Direct 0.3 0.0-0.5 mg/dL Aspartate Amino Transferase 30 5-31 U/L Alanine Aminotransferase 16 0-31 U/L Total Protein 7.3 6.5-8.0 g/dL Albumin Level 4.0 3.5-5.0 g/dL Alkaline Phosphatase 122 39-117 U/L Glucose Fasting Reviewed date:06/04/2024 12:49:55 PM Interpretation: Performing Lab:[facility], [address] [place] [phone] Notes/Report: Glucose Fasting 109 60-99 mg/dL A fasting glucose from 100-125 mg/dl is considered impaired (pre-diabetes). Lipid Panel with Reflex Reviewed date:06/04/2024 12:45:35 PM Interpretation: Performing Lab:[facility], [address] [place] [phone] Notes/Report: Triglycerides 114 <150 mg/dL Desirable Triglyceride: [...] A1c Reviewed date:06/04/2024 12:44:41 PM Interpretation: Performing Lab:[facility], [address] [place] [phone] Notes/Report: Hemoglobin A1c % 5.3 <6.0 % [...] average glucose, using the formula of the P7Q-Mamhhrp Average Glucose study (ADAG), Diabetes Care, Vol.31,#8, Jan. 2007 REASON FOR REFERRAL No Information MEDICATIONS Medication SIG (Take, Route, Frequency, Duration) Notes Start Date End Date Status Ventolin HFA 108 (90 Base) MCG/ACT INHALE 1 PUFF BY MOUTH EVERY 4 HOURS NEEDED for 34 Active Docusate Sodium 100 MG 1 capsule as need ed Orally Once a day Not-Taking Atorvastatin Calcium 80 MG Take 1 tablet by mouth once daily for 90 Active Tylenol 8 Hour Arthritis Pain 650 MG 2 tablets as needed Orally every 8 hrs Not-Taking Estradiol 0.1 MG/GM as directed Vaginal Two times a Week for 30 days 10/11/2023 Active traMADol HCl 50 MG 1 tablet as needed Orally Once a day Not-Taking Albuterol Sulfate (2.5 MG/3ML) 0.083% 3 ml Inhalation Three times a day 06/15/2012 Active oxyCODONE HCl 5 MG 1 to 2 tablets Orall y every 6 hrs for 10 days 05/17/2022 Not-Taki ng Synthroid 100 MCG 1 tablet in the morn ing on an empty stomach Orally Once a day for 30 day(s) Active Enbrel 50 MG/ML 1 mL Subcutaneous Active Nitrostat 0.4 MG as directed Sublingu al every 5 mins times 3 for 30 days 02/14/2018 Not-Taking Metoprolol Succinate ER 50 MG 1 tablet Orally twice a day Active Hydrocortisone Kirt-Pramoxine 2.5-1 % 1 application to affected area as needed Rectal Two times a day for 14 days 03/23/2018 Not-Taking Lasix 20 MG 1 tablet Orally Once a day Active Valtrex 1 GM 1 tablet Orally thre e times a day for 10 day(s) 05/17/2022 Not-Taking Calcium + D 315-200 MG-UNIT 1 tablet Orally 500/125 once a day Active Amoxicillin-Pot Clavulanate 875-125 MG 1 tablet Orally every 12 hrs for 7 days 08/25/2023 Not-Taking Aspir-81 81 MG 1 tablet Orally Once a day Active Omeprazole 20 MG Take 1 capsule by [facility] once daily for 90 Active predniSONE 10 MG 1 tablet with food o r milk Orally 4 tabs for 3 days,3tabs for 3 days, 2 tabs for 3 days, and 1 tab for 3 days for 14 days 06/21/2024 Active Guaiatussin AC 100-10 MG/5ML 10 mL as needed Orally every 4 hrs for 10 days 06/29/2024 Active IMMUNIZATIONS Vaccine Route Administration Date Status Comme [facility] Flu Vaccine Unknown 03/04/2011 Administered Flu Vaccine [...] hypercoagulable state (289.82) Active confirmed Hypercoagulable state (14742376) Problem Spinal stenosis (724.00) Active confirmed Spinal stenosis (16247904) Problem Age-related osteoporosis without current pathological fracture (M81.0) Active confirmed 45379263 Problem Thyroid nodule (E04.1) Active confirmed 178839176 Problem Lymphocytosis (D72.820) Active confirmed 38862197 Problem USP (current) use of systemic steroids (Z79.52) Active confirmed 495398355157788 Problem Lumbar disc disease (M51.9) Active confirmed 85327437 Problem Essential hypertensi on (I10) Active confirmed 16622504 Problem Mild intermittent asthma without complication (J45.20) Active confirmed 514792718 Problem Prediabetes (R73.09) Active confirmed 9 567003 Problem Chronic systolic congestive heart failure (I50.22) Active confirmed 861838941 Problem Hyperthyroidism (E05.90) Active confirmed 30386559 Problem Rheumatoid arthritis involving multiple sites, 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) Active confirmed 717204521 Problem Graves disease (E05.00) Active confirmed 837259768 Problem History of coronary artery bypass graft (Z95.1) Active confirmed 077185086 Problem Thyromegaly (E04.9) Active confirmed 37 64678 Problem Non-rheumatic mitral regurgitation (I34.0) Active confirmed 914385167 Problem Thyroid cancer (C73) Active confirmed 3 88879267 Problem Vaginal bleeding (N93.9) Active confirmed 680405239 Problem Sciatica of right si de (M54.31) Active confirmed 71951725 Problem Hypercholesterolemia (E78.00) Active confirmed 20370400 Problem Coronary artery disease of [place] artery of [place] heart with stable angina pectoris (I25.118) Active confirmed 8868712656628 Problem Atrophy of vagina (N95.2) Active confirmed 680732074 Problem Vaginal prolapse (N81.10) Active confirmed 488911987 VITAL SIGNS Blood pressure diastolic 61 mm Hg 06/29/2024 doroteo ght is 183 at home BP 162/61 no temp Height 63.5 in 06/29/2024 weight is 183 a t home BP 162/61 no temp Blood pressure systolic 162 mm Hg 06/29/2024 weig ht is 183 at home BP 162/61 no temp Weight 183 lbs 06/29/2024 weight is 183 a t home BP 162/61 no temp BMI 31.91 kg/m2 06/29/2024 weight is 183 a t home BP 162/61 no temp Encounters Encounter Location Date Provider Diagnosis Aaron Rob MD [address] [place] [id number] 10/11/2023 Aaron Rob Microscopic hematuri a R31.29 ; Atrophy of vagina N95.2 ; Essential hypertension I10 ; Hyperthyroidism E05.90 ; Prediabetes R73.09 ; Mild intermittent asthma without complication J45.20 ; Chronic systolic congestive heart failure I50.22 ; Hypercholesterolemia E78.00 and Depression screening Z13.31 Aaron Rob MD [address] [place] [id number] 10/03/2023 Aaron Rob Essential hypertensi on I10 ; Lymphocytosis D72.820 ; Thyromegaly E04.9 ; Chronic systolic congestive heart failure I50.22 ; Hypercholesterolemia E78.00 and Prediabetes R73.09 Aaron Rob MD [address] [place] [id number] 10/24/2023 Aaron Rob Hematuria R31.9 Aaron Rob MD [address] [place] [id number] 06/04/2024 Aaron Rob Prediabetes R73.09 a nd Hypercholesterolemia E78.00 Aaron Rob MD [address] [place] [id number] 11/11/2023 Aaron Rob Hematuria, unspecifi ed type R31.9 Aaron Rob MD [address] [place] [address] [id number] 04/16/2024 Aaron Rob Encounter for administration of vaccine Z23 Aaron Rob MD [address] [place] [id number] 06/11/2024 Aaron Rob Vaginal prolapse N81 .10 ; Essential hypertension I10 and Rheumatoid arthritis involving multiple sites, unspecified rheumatoid factor presence M06.9 Aaron Rob MD [address] [place] [address] [id number] 10/24/2023 Aaron Rob Colon cancer screeni ng Z12.11 Aaron Rob MD [address] [place] [address] [id number] 08/25/2023 Aaron Rob Bilateral otitis med ia, unspecified otitis media type H66.93 Aaron Rob MD [address] [place] [id number] 06/21/2024 Aaron Rob Mild intermittent as thma without complication J45.20 Aaron Rob MD [address] [id number] 06/29/2024 Aaron Rob Acute URI J06.9 ASSESSMENTS [...] for administration of vaccine (ICD-10 - Z23) 06/11/2024 Vaginal prolapse (IC D-10 - N81.10) is trying to decide if surgery or pessary. will try pessary, 10/24/2023 Colon cancer screeni ng (ICD-10 - Z12.11) 08/25/2023 Bilateral otitis med ia, unspecified otitis media type (ICD-10 - H66.93) patient verbalized understanding of medication and directions 06/21/2024 Mild intermittent as thma without complication (ICD-10 - J45.20) 06/29/2024 Acute URI (ICD-10 - J06.9) THE XRAY ORDER WAS FAXED TO [facility] [place] PATIENT REG. PATIENT AWARE, patient verbalized understanding of medication and directions for use, pending diagnostic testing 10/11/2023 Essential hypertensi on (ICD-10 - I10) well controlled, will continue current regiment and will continue to monitor 10/03/2023 Thyromegaly (ICD-10 - E04.9) 10/24/2023 Hematuria (ICD-10 - R31.9) 06/11/2024 Essential hypertensi on (ICD-10 - I10) running a little highwill continue current regiment and will contiue to monitor 10/11/2023 Hyperthyroidism (ICD -10 - E05.90) doing well, will continue current regiment 10/03/2023 Chronic systolic congestive heart failure (ICD-10 - I50.22) 06/11/2024 Rheumatoid arthritis involving multiple sites, unspecified rheumatoid factor presence (ICD-10 - M06.9) doing better on embrel, will continue current regiment 10/11/2023 Prediabetes (ICD-10 - R73.09) stable, no [...] CHEST 2 VIEW PA & LAT 06/29/2024 XR CHEST 2 VIEW PA & LAT 05/23/2023 BONE DENSITY DEXA 07/03/2021 Next Appt Details Provider Name:Aaron Atkinson ier, 10/04/2024 07:45:00 AM, [address], [address], [place], [place], [phone], Provider Name:Aaron Atkinson ier, 10/11/2024 11:00:00 AM, [address], [address], [place], [place], [phone], Insurance Providers Payer Name Payer Address Payer Phone Subscriber Number Group Number Insured Name Patient Relationship to Insured Coverage Start Date Coverage End Date MEDICARE NHIC CECE [address] [place] [address] [id number] TracySelene gray Self - patient is the insured [address] [address] [id number] Selene Valdovinos Self - patient is the insured MEDICAL (GENERAL) HISTORY Medical History History ICD Code colonoscopy - 03/2008 hyperp lastic polyp due 03/[address] Lan; Colonoscopy done 07/14/[address] Lan - repeat 10 years [employer] appt 06/04/13 at [facility] [place] hematuria w/u 2017 08/21/2019 Total Thyroidectomy Pulmonary nodule R91.1 nodule evaluated and no need for further eval 2017 Surgical History Surgery Date(Month/Year) L3-4, L4-5 Decompression 03/2014 Total Thyroidectomy 07/2019
== END 2024-06-29 13:24 | disposition home or self-care (01) ==
LOC: HO.XRAY 13:23
PROVIDERS: PCP Internal Medicine; Visit Provider Internal Medicine
DX: J06.9 Acute upper respiratory infection, unspecified (principal)
CPT/HCPCS: 71046

== ENCOUNTER → 2024-06-29 13:36 | Outpatient (BNV) | payer MEDICARE, MEDICAID, SELFPAY | PROVIDERS: PCP Internal Medicine; Visit Provider Radiology Diagnostic Radiology | DX: J06.9 Acute upper respiratory infection, unspecified (principal) | CPT/HCPCS: 71046 ==

== ENCOUNTER 2024-07-24 12:44 | Outpatient (AMB) | payer MEDICARE, MEDICAID, SELFPAY ==
[2024-07-24 12:58] VITALS: BP 124/68; PULSE 71; BMI 32.8
--- NOTE | 2024-07-24 12:58 | MHC.OFFVIS ---
Vital Signs 07/24/24 12:58 Height 5 ft 3 in Weight 185 lb 3.013 oz BMI 32.8 BP 124/68 Blood Pressure Location Lt brachial Position Sitting Pulse 71 Pulse Source Monitor Intake Visit Reasons: r/s 07/23/24 6 mos followup Allergies No Known Allergies [No Known Allergies*] Allergy (Verified 05/04/24 11:01) Medication List - Last Reconciled 07/24/24 by Hernan Arriaga MD acetaminophen 650 mg PO Q6H PRN amlodipine 2.5 mg PO DAILY aspirin (Adult Low Dose Aspirin) 81 mg PO DAILY atorvastatin 80 mg PO BEDTIME calcium carbonate-vitamin D3 500 mg-5 mcg (200 unit) 1 tab PO DAILY etanercept (Enbrel SureClick) 50 mg subcut QWEEK furosemide 20 mg PO DAILY levothyroxine (Synthroid) 100 mcg PO DAILY metoprolol tartrate 50 mg PO BID 90 days omeprazole 20 mg PO DAILY HPI Comments Details: Selene returns for follow-up regarding coronary disease and bypass surgery. Since last seen, no specific cardiac concerns. No angina or shortness of breath or palpitations or syncopal episodes or anything of cardiac nature. [facility] Medical History Long-term use of immunosuppressant medication Personal history of COVID-19 Hx of thyroid cancer Non-rheumatic mitral regurgitation Essential hypertension Atherosclerotic cardiovascular disease long-term 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 Seropositive rheumatoid arthritis Coronary arteriosclerosis Surgical History Hx of total knee replacement (06/22/22) Hx of bilateral cataract extraction Hx of colonoscopy History of back surgery Status post coronary artery bypass graft History of thyroid surgery Family History Mother HTN (hypertension) Social History Are you a primary career technical education instructor to a significant other at home: No Do you presently have visiting nurse or other home services: No Alcohol intake: current Alcohol intake frequency: holidays/special occasions only Alcohol type: wine Comment: bathroom only, aware of trip hazards Patient Tobacco Use Status: Former Tobacco user Tobacco use type: Cigarette Female Reproductive History Menstrual Age of Menarche: 12 Review of Systems Const Denies weakness ENT Denies dizziness Card Denies chest pain, Denies chest pain with activity, Denies syncope, Denies rapid heart rate, Denies pedal edema, Denies edema, Denies leg edema, Denies lightheadedness, Denies palpitations, Denies dyspnea, Denies dyspnea on exertion and Denies orthopnea Resp Denies cough, Denies dyspnea and Denies dyspnea on exertion GI Denies hematochezia and Denies change in stool character Musc Denies abnormal gait, Denies muscle cramps, Denies muscle weakness, Denies numbness, Denies radiating pain into limb and Denies tingling Neuro Denies abnormal gait, Denies dizziness, Denies syncope, Denies numbness, Denies tingling and Denies weakness Endo Denies palpitations Physical Exam Vital Signs: Last Vital Signs Pulse 71 07/24/24 12:58 BP 124/68 07/24/24 12:58 BMI result Body Mass Index 32.8 Const General: comfortable and no acute distress Orientation/consciousness: patient oriented x3 HEENT Other: Unremarkable Head: Yes normal to inspection Neck Neck: Yes normal visual inspection Chest Chest palpation & inspection: normal inspection of the chest Resp Auscultation: clear to auscultation bilaterally Cardio Palpation: normal PMI Heart sounds: S1 normal heart sound present, S2 normal heart sound present, no gallops, Murmur heart sound present systolic I/ and at the apex and no rubs GI Palpation (GI): Soft to palpation Back/Spine/Pelvis Other: unremarkable Skin General skin exam: no rashes or lesions noted Neuro General: patient oriented x3 Extrem Other: Trace edema General: Yes normal to inspection Psych Mental Status: mental status grossly normal Office Procedures EKG Details: EKG with underlying sinus rhythm at 71/Min; nonspecific ST-T changes; [place] [address]-Ssshzwchzsddmkwdu, Complete Assessment & Plan Assessment & Plan (1) Atherosclerotic cardiovascular disease: Code(s): I25.10 - Atherosclerotic heart disease of [place] coronary artery without angina pectoris Category: Medical Plan: Stable. Continue aspirin/statins. Last LDL 46 mg/dL. (2) Non-rheumatic mitral regurgitation: Code(s): I34.0 - Nonrheumatic mitral (valve) insufficiency Category: Medical Plan: Enwd-wo-aaxrolpl mitral regurgitation on the last echocardiogram. No clinical implications at this time. May recheck as necessary. (3) Essential hypertension: Code(s): I10 - Essential (primary) hypertension Category: Medical Plan: Stable. Amlodipine added last visit. (4) Leg edema: Code(s): R60.0 - Localized edema Category: Medical Plan: Likely multifactorial. On low-dose Lasix. No changes. Coding Level of Care Code Est Pt Level 4 (90773) Diagnoses Atherosclerotic cardiovascular disease I25.10 Non-rheumatic mitral regurgitation I34.0 Essential hypertension I10 Leg edema R60.0 CPT Codes EKG - CPT: 69289-Dlomalzzwikmhyjnh, Complete ([id number])
--- OUTSIDE RECORDS SUMMARY | 2024-07-24 13:34 | XMS_ITS ---
Author Organization Aaron Rob MD Address [address] [place] [phone] Care Team Providers Care Plastic Maker Name Role Phone Aaron Rob Primary Care Provider Allergies No Known Allergies REASON FOR VISIT coughing congested will test covid, tested for Covid 2 times negative once this AM, c/o fatigue, productive cough, SOB, muscle aches, congestion nauseau x 1 week, Video [phone] Medications Medication SIG (Take, Route, Frequency, Duration) Notes [...] Omeprazole 20 MG Take 1 capsule by [facility] once daily for 90 Active Albuterol [...] Once a day for 30 day(s) Active Vital Signs Height 63.5 in 06/21/2024 Weight 183 lbs 06/21/2024 BMI 31.91 kg/m2 06/21/2024 weight at home is 183 B not taken at home no temp Encounters Encounter Location Date Provider Diagnosis Aaron Rob MD [address] [place] [address] [place] [phone] 06/21/2024 Aaron Rob Mild intermittent asthma without complication J45.20 Assessments Encounter Date Diagnosis (ICD Code) Assessment Notes Treatment Notes Treatment Clinical Notes Section Notes 06/21/2024 Mild intermittent asthma without complication (ICD-10 - J45.20) Plan Of Treatment Medication Medication Name Sig Start Date Stop [...] day(s) 06/21/2024 Next Appt Details Provider Name:Aaron deleon, 08/10/2024 10:15:00 AM, [address] [place] [address], [address], [phone], Provider Name:Aaron deleon, 10/04/2024 07:45:00 AM, [address] [place] [address], [place] [address], [place], [place], [phone], Provider Name:Aaron deleon, 10/11/2024 11:00:00 AM, [address] [place] [address], [place] [address], [place], [place], [phone], Progress Notes * Selene BARRYDOB: [birth year] (69 yo F)Acc No.[id number]:06/21/2024 Patient:?Barry Selene Provider:?Aaron Rob MD :1955???Age:69 Y???Sex:Female D ate:06/21/2024 Address:[address] [place] [address] YESSI Lockhart [id number] Subjective: * Chief Complaints: * ???Coughing congested will t est covidtested for Covid 2 times negative once this AMc/o fatigue, productive cough, SOB, muscle aches, congestion nauseau x 1 weekVideo [phone] * HPI: ???Symptom(s):?Telehealth?Location of provider rendering services:?[address], [address],?Location of patient:?at address listed in demographics for today's visit,?Patient identification confirmed using:?Name, , SSN, Insurance information,?Telehealth method:?Video conference where patient is visible to the provider of care,?Consent:?Patient verbally consented to treatment, Patient verbally consented to billing insurance company, Patient informed of any privacy concerns related to method of visit.? patient is a 69 yo female video telehealth visit, started with cough and not feeling well. using inhaler and it helps but coughing is hard. covid was negative. * ROS:?General/Constitutional:?Denies?Chills.?Admits?Fatigue.?Denies?Fever.?Denies?Headache.?ENT:?Patient denies?decreased sense of smell , any loss of taste , sore throat.?Denies?Sore throat.?Respiratory:?Admits?Cough.?Denies?Shortness of breath at rest.?Denies?Shortness of breath with exertion.?Admits?Sputum production.?Gastrointestinal:?Denies?Diarrhea.?Denies?Nausea.?Musculoskeletal:?Patient denies?muscle aches.?Peripheral Vascular:?Patient denies?red and blue toes.? * Medical History:? * Surgical History:? * Hospitalization/Major Diagno stic Procedure:? * Medications:?TakingSynthroid 100 MCG Tablet 1 tablet in the morning on an empty stomach Orally Once a dayAspir-81 81 MG Tablet Delayed Release 1 tablet Orally Once a dayCalcium + D 315-200 MG-UNIT Tablet 1 tablet Orally 500/125 once a dayLasix 20 MG Tablet 1 tablet Orally Once a dayOmeprazole 20 MG Capsule Delayed Release Take 1 capsule by mouth once daily Albuterol Sulfate (2.5 MG/3ML) 0.083% Nebulization Solution 3 ml Inhalation Three times a dayEstradiol 0.1 MG/GM Cream as directed Vaginal Two times a WeekAtorvastatin Calcium 80 MG Tablet Take 1 tablet by mouth once daily Ventolin HFA 108 (90 Base) MCG/ACT Aerosol Solution INHALE 1 PUFF BY MOUTH EVERY 4 HOURS NEEDED Metoprolol Succinate ER 50 MG Tablet Extended Release 24 Hour 1 tablet Orally twice a dayEnbrel 50 MG/ML Solution Prefilled Syringe 1 mL Subcutaneous Taking Synthroid 100 MCG Tablet 1 tablet in the morning on an empty stomach Orally Once a dayTaking Aspir-81 81 MG Tablet Delayed Release 1 tablet Orally Once a dayTaking Calcium + D 315-200 MG-UNIT Tablet 1 tablet Orally 500/125 once a dayTaking Lasix 20 MG Tablet 1 tablet Orally Once a dayTaking Omeprazole 20 MG Capsule Delayed Release Take 1 capsule by mouth once daily Taking Albuterol Sulfate (2.5 MG/3ML) 0.083% Nebulization Solution 3 ml Inhalation Three times a dayTaking Estradiol 0.1 MG/GM Cream as directed Vaginal Two times a WeekTaking Atorvastatin Calcium 80 MG Tablet Take 1 tablet by mouth once daily Taking Ventolin HFA 108 (90 Base) MCG/ACT Aerosol Solution INHALE 1 PUFF BY MOUTH EVERY 4 HOURS NEEDED Taking Metoprolol Succinate ER 50 MG Tablet Extended Release 24 Hour 1 tablet Orally twice a dayTaking Enbrel 50 MG/ML Solution Prefilled Syringe 1 mL Subcutaneous Not-Taking/PRNAmoxicillin-Pot Clavulanate 875-125 MG Tablet 1 tablet Orally every 12 hrsValtrex 1 GM Tablet 1 tablet Orally three times a dayoxyCODONE HCl 5 MG Tablet 1 to 2 tablets Orally every 6 hrstraMADol HCl 50 MG Tablet 1 tablet as needed Orally Once a dayTylenol 8 Hour Arthritis Pain 650 MG Tablet Extended Release 2 tablets as needed Orally every 8 hrsDocusate Sodium 100 MG Capsule 1 capsule as needed Orally Once a dayHydrocortisone Kirt-Pramoxine 2.5-1 % Cream 1 application to affected area as needed Rectal Two times a dayNitrostat 0.4 MG Tablet Sublingual as directed Sublingual every 5 mins times 3Medication List reviewed and reconciled with the patientNot-Taking/PRN Amoxicillin-Pot Clavulanate 875-125 MG Tablet 1 tablet Orally every 12 hrsNot-Taking/PRN Valtrex 1 GM Tablet 1 tablet Orally three times a dayNot-Taking/PRN oxyCODONE HCl 5 MG Tablet 1 to 2 tablets Orally every 6 hrsNot-Taking/PRN traMADol HCl 50 MG Tablet 1 tablet as needed Orally Once a dayNot-Taking/PRN Tylenol 8 Hour Arthritis Pain 650 MG Tablet Extended Release 2 tablets as needed Orally every 8 hrsNot-Taking/PRN Docusate Sodium 100 MG Capsule 1 capsule as needed Orally Once a dayNot-Taking/PRN Hydrocortisone Kirt-Pramoxine 2.5-1 % Cream 1 application to affected area as needed Rectal Two times a dayNot- Taking/PRN Nitrostat 0.4 MG Tablet Sublingual as directed Sublingual every 5 mins times 3Medication List reviewed and reconciled with the patient * Allergies:?N.K.D.A.yes[Aller gies Verified] Objective: * Vitals:?Ht: 63.5, Wt:183, BM I:31.91 weight at home is 183 B not taken at home no temp. * Examination: ???General Examination: ?GENERAL APPEARANCE:?alert, well hydrated, in no distress.? Assessment: * Assessment: 1.?Mild intermittent asthma without complication - J45.20? Plan: * Treatment: * Procedure Codes:? * * Sign off status: Completed true * Provider:?Aaron Rob MD Date:?1 08/22/2023 Generated for Julius pittman/Fito/Dionnaitting on:?07/24/2024 01:34 PM EST History and Physical Notes * HPI (History of Present Illness) Category Sub-Category Detail Notes Category Not es Symptom(s) [facility] [address], [address] patient is a 69 yo female video telehealth visit, started with cough and not feeling well. using inhaler and it helps but coughing is hard. covid was negative. Location of patient:: at address listed in demographics for today's visit Patient identification confirmed using:: Name, , SSN, Insurance information Telehealth method:: Video co nference where patient is visible to the provider of care Consent:: Patient verbally c onsented to treatment, Patient verbally consented to billing insurance company, Patient informed of any privacy concerns related to method of visit Examination Category Sub-Category Detail Notes Category Not es General Examination GENERAL APPEARANCE: alert, w ell hydrated, in no distress
--- OUTSIDE RECORDS SUMMARY | 2024-07-24 13:34 | XMS_ITS | Encounter Summary ---
Author Organization [employer] [facility] Address [address] [place] [address] Care Team Providers Care Film Library Clerk Name Role Phone Unavailable Primary Care Provider Unavailabl e Encounter Details Date Type Department Care Team (Late st Contact Info) Description 03/01/2023 Abstract [facility] ADULT D[facility]AL [address] [place] [address] Sunny Martin, KATHARINA [address] [place] [address] Social History Tobacco Use Types Packs/Day Years Used Date Smoking Tobacco: Former Cigarettes Smokeless Tobacco: Never Comments Unknown Sex and Gender Information Value Date Recorded Sex Assigned at Female 04/26/2022 10:23 AM EDT Legal Sex Female 10:23 AM EDT Gender Identity Female 08/19/2022 9:09 AM EST Sexual Orientation Straight 08/19/2022 9: 09 AM EST documented as of this encounter Plan of Treatment Not on file documented as of this encounter Visit Diagnoses Not on filedocumented in this encounter
--- OUTSIDE RECORDS SUMMARY | 2024-07-24 13:34 | XMS_ITS ---
Author Organization Aaron Rob MD Address [address] [place] [phone] Care Team Providers Care Rouge Sifter Name Role Phone Aaron Rob Primary Care Provider [phone] Allergies No Known Allergies REASON FOR VISIT still coughing, c/o chills, nonproductive cough, fatigue SOB, congestion , finished antibiotics still has 3 days of Prednisone, Video [phone] Medications Medication SIG (Take, Route, Frequency, Duration) [...] Omeprazole 20 MG Take 1 capsule by [facility] once daily for 90 Active Ventolin [...] 1 tablet Orally Once a day Active Vital Signs Blood pressure systolic 162 mm Hg 06/29/19 25 Blood pressure diastolic 61 mm Hg 025 Height 63.5 in 06/29/2024 Weight 183 lbs 06/29/2024 BMI 31.91 kg/m2 06/29/2024 weight is 183 at home BP 162 /61 no temp Encounters Encounter Location Date Provider Diagnosis Aaron Rob MD [address] [place] [address] [address] [place] [phone] 06/29/2024 Aaron Rob Acute URI J06.9 Assessments Encounter Date Diagnosis (ICD Code) Assessment Notes Treatment Notes Treatment Clinical Notes Section Notes 06/29/2024 Acute URI (ICD-10 - J06.9) THE XRAY ORDER WAS FAXED TO [facility] PATIENT REG. PATIENT AWARE, patient verbalized understanding of medication and directions for use, pending diagnostic testing Plan Of Treatment Medication Medication Name Sig Start Date Stop Date Notes Guaiatussin AC 100-10 MG/5ML 10 mL as ne eded Orally every 4 hrs for 10 days 06/29/2024 Treatment Notes Assessment Notes Acute URI THE XRAY ORDER WAS F AXED TO [facility] PATIENT REG. PATIENT AWARE, patient verbalized understanding of medication and directions for use, pending diagnostic testing Pending Test Test Name Order Date XR CHEST 2 VIEW PA & LAT 06/29/2024 Next Appt Details Provider Name:Aaron deleon, 08/10/2024 10:15:00 AM, [address] [place] [address], Suite [facility], [place], [place], [phone], Provider Name:Aaron villar, 10/04/2024 07:45:00 AM, [address] [place] [address], Suite [facility], [place], [place], [phone], Provider Name:Aaron villar, 10/11/2024 11:00:00 AM, [address] [place] [address], Suite [facility], [place], [place], [phone], Progress Notes * Selene BARRYDOB: [birth year] (69 yo F)Acc No.[id number]:06/29/2024 Patient:?Selene Barry Provider:?Aaron Rob MD :1955???Age:69 Y???Sex:Female D ate:06/29/2024 Address:[address] [place] [address] YESSI Lockhart [id number] Subjective: * Chief Complaints: * ???Still coughingc/o chills, nonproductive cough, fatigue SOB, congestion , finished antibiotics still has 3 days of PrednisoneVideo [phone] * HPI: ???Symptom(s):?Telehealth?Location of provider rendering services:?[address] [...] is a 69 yo female video telehealth visit feeling weak and coughing a lot. chest hurts from coughing . is almost done with prednisone. has chills and no fever or sore throat. prednisone and z pack did not getting better. * ROS:?General/Constitutional:?Admits?Chills.?Admits?Fatigue.?Denies?Fever.?Admits?Headache.?ENT:?Patient denies?decreased sense of smell , any loss of taste , sore throat.?Denies?Sore throat.?Respiratory:?Admits?Cough.?Denies?Shortness of breath at rest.?Admits?Shortness of breath with exertion.?Denies?Sputum production.?Gastrointestinal:?Denies?Diarrhea.?Denies?Nausea.?Musculoskeletal:?Patient denies?muscle aches.?Peripheral Vascular:?Patient denies?red and blue [...] MG Tablet 1 tablet Orally Once a dayAlbuterol Sulfate (2.5 MG/3ML) 0.083% Nebulization Solution 3 [...] MG/ML Solution Prefilled Syringe 1 mL Subcutaneous predniSONE 10 MG Tablet 1 tablet with food or milk Orally 4 tabs for 3 days,3tabs for 3 days, 2 tabs for 3 days, and 1 tab for 3 daysOmeprazole 20 MG Capsule Delayed Release Take 1 capsule by mouth once daily Taking Synthroid 100 MCG Tablet 1 tablet in the morning on an empty stomach Orally Once a dayTaking Aspir-81 81 MG Tablet Delayed Release 1 tablet Orally Once a dayTaking Calcium + D 315- 200 MG-UNIT Tablet 1 tablet Orally 500/125 once a dayTaking Lasix 20 MG Tablet 1 tablet Orally Once a dayTaking Albuterol Sulfate (2.5 MG/3ML) 0.083% Nebulization Solution [...] Solution Prefilled Syringe 1 mL Subcutaneous Taking predniSONE 10 MG Tablet 1 tablet with food or milk Orally 4 tabs for 3 days,3tabs for 3 days, 2 tabs for 3 days, and 1 tab for 3 daysTaking Omeprazole 20 MG Capsule Delayed Release Take 1 capsule by mouth once daily Not-Taking/PRNAmoxicillin-Pot Clavulanate 875-125 MG Tablet 1 tablet [...] as directed Sublingual every 5 mins times 3Not-Taking/PRN Amoxicillin-Pot Clavulanate 875-125 MG Tablet 1 tablet [...] area as needed Rectal Two times a dayNot-Taking/PRN Nitrostat 0.4 MG Tablet Sublingual as directed Sublingual every 5 mins times 3DiscontinuedZithromax Z-Antonio 250 MG Tablet 2 tablet on the first day, then 1 tablet daily for 4 days Orally Once a dayMedication List reviewed and reconciled with the patientDiscontinued Zithromax Z-Antonio 250 MG Tablet 2 tablet on the first day, then 1 tablet daily for 4 days Orally Once a dayMedication List reviewed and reconciled with the patient * Allergies:?N.K.D.A.yes[Aller gies Verified] Objective: * Vitals:?Ht: 63.5, Wt:183, BM I:31.91, BP:162/61 weight is 183 at home BP 162/61 no temp. * Examination: ???General Examination: ?GENERAL APPEARANCE:?alert, well hydrated, in no distress.? Assessment: * Assessment: 1.?Acute URI - J06.9 (Primar y)? Plan: * Treatment: * Procedure Codes:? * * Sign off status: Completed true * Provider:?Aaron Rob MD Date:?0 06/29/2024 Generated for Julius pittman/Fito/Dionnaitting on:?07/24/2024 01:34 PM EST History and Physical Notes * HPI (History of Present Illness) Category Sub-Category Detail Notes Category Not es Symptom(s) Telehealth Location of [facility] rendering services:: [address], [address] patient is a 69 yo female video telehealth visit feeling weak and coughing a lot. chest hurts from coughing . is almost done with prednisone. has chills and no fever or sore throat. prednisone and z pack did not getting better Location of patient:: at address listed in [...]
--- OUTSIDE RECORDS SUMMARY | 2024-07-24 13:34 | XMS_ITS ---
Author Organization Aaron Rob MD Address [address] [place] [id number] Care Team Providers Care Ux Developer Designer Name Role Phone Aaron Rob Primary Care Provider Allergies No Known Allergies Results Component Value Reference Range Notes TSH reflex Free T4 Reviewed date:07/06/2024 05:11:26 PM Interpretation: Performing Lab:[facility], [address] [place] [id number] Notes/Report: TSH reflex Free T4 0.16 0.32-4.0 uIU/mL REASON FOR VISIT REVIEW CHEST XRAY Medications Medication SIG (Take, Route, Frequency, Duration) Notes Start Date End Date Status Guaiatussin AC 100-10 MG/5ML 10 mL as needed Orally every 4 hrs for 10 days 06/29/2024 Active Amoxicillin-Pot Clavulanate 875-125 MG 1 tablet Orally every 12 hrs for 7 days 08/25/2023 Not-Taking Enbrel 50 MG/ML 1 mL Subcutaneous Active Omeprazole 20 MG Take 1 capsule by [facility] once daily for 90 Active Albuterol Sulfate (2.5 MG/3ML) 0.083% 3 ml Inhalation Three times a day 06/15/2012 Active Estradiol 0.1 MG/GM as directed Vaginal Two times a Week for 30 days 10/11/2023 Active Atorvastatin Calcium 80 MG Take 1 tablet by mouth once daily for 90 Active Ventolin HFA 108 (90 Base) MCG/ACT INHALE 1 PUFF BY MOUTH EVERY 4 HOURS NEEDED for 34 Active Metoprolol Succinate ER 50 MG 1 tablet Orally twice a day Active Aspir-81 81 MG 1 tablet Orally Once a day Active Calcium + D 315-200 MG-UNIT 1 tablet Orally 500/125 once a day Active Lasix 20 MG 1 tablet Orally Once a day Active Docusate Sodium 100 MG 1 capsule as need ed Orally Once a day Not-Taking Synthroid 100 MCG 1 tablet in the morn ing on an empty stomach Orally Once a day for 30 day(s) Active Vital Signs Blood pressure systolic 148 mm Hg 07/06/19 25 Blood pressure diastolic 60 mm Hg 025 Height 63.5 in 07/06/2024 Weight 189 lbs 07/06/2024 BMI 32.95 kg/m2 07/06/2024 Encounters Encounter Location Date Provider Diagnosis Aaron Rob MD [address] [place] [address] [address] [place], [place] [phone] 07/06/2024 Aaron Rob Mild intermittent asthma without complication J45.20 ; Hyperthyroidism E05.90 and Pneumonitis, interstitial J84.89 Assessments Encounter Date Diagnosis (ICD Code) Assessment Notes Treatment Notes Treatment Clinical Notes Section Notes 07/06/2024 Mild intermittent asthma without complication (ICD-10 - J45.20) discussed findings of recent chst xray with paient, not coughing/ future order given to patient, will cntinue to monitor 07/06/2024 Hyperthyroidism (ICD-10 - E05.90) pending labs 07/06/2024 Pneumonitis, interstitial (ICD-10 - J84.89) will contiue to monitor , pending future chest xray Plan Of Treatment Treatment Notes Assessment Notes Mild intermittent asthma without complic ation discussed findings of recent chst xray with paient, not coughing/ future order given to patient, will cntinue to monitor Hyperthyroidism pending labs Pneumonitis, interstitial will contiue t o monitor , pending future chest xray Future Test Test Name Order Date XR CHEST 2 VIEW PA & LAT 08/03/2024 Next Appt Details Follow Up: 4 Weeks, Reason: Provider Name:Aaron Atkinson ier, 08/10/2024 10:15:00 AM, [address], [address] [facility], [place], [place], [phone], Provider Name:Aaron Atkinson ier, 10/04/2024 07:45:00 AM, [address] [facility], [address] [facility], [place], [place], [phone], Provider Name:Aaron Atkinson ier, 10/11/2024 11:00:00 AM, [address] [place] [address], [address] [facility], [place], [place], [phone], Progress Notes * Selene BARRYDOB: [birth year] (69 yo F)Acc No.[id number]:07/06/2024 Patient:?Selene Barry Provider:?Aaron Rob MD :1955???Age:69 Y???Sex:Female D ate:07/06/2024 Address:[address] [place], [place] [id number] Subjective: * Chief Complaints: * ???REVIEW CHEST XRAY * HPI: ???Symptom(s):? patient is a 69 yo female here for review of recent Chest xray. * ROS:?General/Constitutional:?Denies?Chills.?Denies?Fatigue.?Denies?Fever.?Denies?Headache.?ENT:?Patient denies?decreased sense of smell , any loss [...] MG/ML Solution Prefilled Syringe 1 mL Subcutaneous Omeprazole 20 MG Capsule Delayed Release Take 1 capsule by mouth once daily Guaiatussin AC 100-10 MG/5ML Syrup 10 mL as needed Orally every 4 hrsTaking Synthroid 100 MCG Tablet 1 tablet in [...] Solution Prefilled Syringe 1 mL Subcutaneous Taking Omeprazole 20 MG Capsule Delayed Release Take 1 capsule by mouth once daily Taking Guaiatussin AC 100-10 MG/5ML Syrup 10 mL as needed Orally every 4 hrsNot-Taking/PRNAmoxicillin-Pot Clavulanate 875-125 MG Tablet 1 tablet Orally every 12 hrsDocusate Sodium 100 MG Capsule 1 capsule as needed Orally Once a dayNot-Taking/PRN Amoxicillin-Pot Clavulanate 875-125 MG Tablet 1 tablet Orally every 12 hrsNot-Taking/PRN Docusate Sodium 100 MG Capsule 1 capsule as needed Orally Once a dayDiscontinuedpredniSONE 10 MG Tablet 1 tablet with food or milk Orally 4 tabs for 3 days,3tabs for 3 days, 2 tabs for 3 days, and 1 tab for 3 daysMedication List reviewed and reconciled with the patientDiscontinued predniSONE 10 MG Tablet 1 tablet with food or milk Orally 4 tabs for 3 days,3tabs for 3 days, 2 tabs for 3 days, and 1 tab for 3 daysMedication List reviewed and reconciled with the patient * Allergies:?N.K.D.A.yes[Aller gies Verified] Objective: * Vitals:?Ht: 63.5, Wt:189, BM I:32.95, BP:148/60. * Examination: ???General Examination: ?GENERAL APPEARANCE:?normal.?SKIN:?good turgor.?HEART:?regular rate and rhythm but heart rate 60.?LUNGS:?no wheezes, rales, rhonchi , good air movement , clear to auscultation bilaterally.? Assessment: * Assessment: 1.?Mild intermittent asthma without complication - J45.20 (Primary)?2.?Hyperthyroidism - E05.90?3.?Pneumonitis, interstitial - J84.89? Plan: * Treatment: 2.?Hyperthyroidism?LAB: TSH reflex Free T4 Notes: pending labs?? 3.?Pneumonitis, interstitial ? Notes: will contiue to monitor , pending future chest xray?? * Procedure Codes:?53421 VENIP UNCT, ROUTINE* * Follow Up:?4 Weeks * * Sign off status: Completed true * Provider:?Aaron Rob MD Date:?0 07/06/2024 Generated for Printi ng/Fito/eTransmitting on:?07/24/2024 01:34 PM EST History and Physical Notes * HPI (History of Present Illness) Category Sub-Category Detail Notes Category Not es Symptom(s) patient is a 69 yo female here for review of recent Chest xray Examination Category Sub-Category Detail Notes Category Not es General Examination GENERAL APPEARANCE: normal HEART: regular rate and rhy thm but heart rate 60 LUNGS: no wheezes, rales, r honchi , good air movement , clear to auscultation bilaterally SKIN: good turgor
--- OUTSIDE RECORDS SUMMARY | 2024-07-24 13:34 | XMS_ITS | Clinical Summary ---
Author Organization [employer] [facility] Address [address] [place] [address] [address] [place] [address] Care Team Providers Care Bulk Fluids Handler Name Role Phone Unavailable Primary Care Provider Unavailabl e Allergies Active Allergy Reactions Criticality Noted Date Comments Carvedilol Unknown 02/07/2023 Medications albuterol (ProAir HFA) 108 (90 Base) MCG/ACT inhaler 2 puffs as needed Active atorvastatin (Lipitor) 80 MG tablet Take 1 tablet by mouth in the morning. Active Calcium Citrate-Vitamin D (Calcium + D) 315-5 MG-MCG tablet 1 tablet Active etanercept (Enbrel) 50 MG/ML injection 1 mL Acti ve furosemide (Lasix) 20 MG tablet daily. Active levothyroxine (Synthroid, Levoxyl) 112 MCG tablet daily. 2 Active metoprolol succinate XL (Toprol-XL) 50 MG 24 hr tablet 2 times daily. Active omeprazole (PriLOSEC) [address] capsule daily. 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 Dental calculus 03/01/2023 Localized gingival recession 03/01/2023 Immunizations Name Administration Dates Next Due Moderna Covid-19 Vaccine 12+ 06/07/2021,11/20/19 21,10/22/2020 Moderna Covid-19 Vaccine 6+ Bivalent 08/19/2022 Social History Tobacco Use Types Packs/Day Years Used Date Smoking Tobacco: Former Cigarettes Smokeless Tobacco: Never Tobacco Cessation:Counseling Given: Not Answered Comments Unknown Sex and Gender Information Value Date Recorded Sex Assigned at Female 04/26/2022 10:23 AM EDT Legal Sex Female 10:23 AM EDT Gender Identity Female 08/19/2022 9:09 AM EST Sexual Orientation Straight 08/19/2022 9: 09 AM EST Last Filed Vital Signs Vital Sign Reading Time Taken Comments Blood Pressure 136/68 03/27/2024 8:57 AM EDT Pulse 84 07/05/2023 8:58 AM EST Temperature - - Respiratory Rate - - Oxygen Saturation - - Inhaled Oxygen Concentration - - Weight - - Height - - Body Mass Index - - Plan of Treatment Health Maintenance Due Date Last Done Comments CT Colonography 1957 Colonoscopy 1957 Colorectal Cancer Screening 1955 Depression Screening 1955 FIT DNA/Cologuard 1957 FIT 1957 FOBT 1957 Lipid Panel 1957 SDOH Screening 1957 Sigmoidoscopy 1957 Alcohol/Substance Use Screening 1969 Hepatitis C Screening 1975 DTaP/Tdap/Td Vaccines (1 - Tdap) 1976 Mammogram 1997 Zoster Vaccines (1 of 2) 2007 RSV Patients and Patients Aged 60 years or older (1 - Risk 60-74 years 1-dose series) 2017 COVID-19 Vaccine ( season) 2024 08/19/2022, 06/07/2021, 11/19/2020, Additional history exists Influenza Vaccine (#1) 2024 , 04/08/2022, 03/19/2021, Additional history exists Dental Oral Exam 09/26/2024 03/27/2024, , 02/23/2013, Additional history exists Dental Prophylaxis 09/26/2024 03/27/2024, 0 03/01/2023, 01/29/2013, Additional history exists Pneumococcal Vaccine: 65+ Years (3 of 3 - PPSV23 or PCV20) 03/04/2025 03/04/2020, 06/02/2018 Tobacco Screening 03/27/2025 03/27/2024 Dental X-Ray: Bitewings 03/28/2025 03/27/20 24, 09/12/2023, 02/07/2023, Additional history exists Dental X-Ray: Full Mouth 02/08/2026 02/07/2023, 01/27 HIB Vaccines Aged Out No longer eligi ble based on patient's age to complete this topic HPV Vaccines Aged Out No longer eligi ble based on patient's age to complete this topic Hepatitis A Vaccines Aged Out No long er eligible based on patient's age to complete this topic Hepatitis B Vaccines Aged Out No long er eligible based on patient's age to complete this topic IPV Vaccines Aged Out No longer eligi ble based on patient's age to complete this topic Meningococcal Vaccine Aged Out No aleisha frannie eligible based on patient's age to complete this topic RSV under 20 months Aged Out No longe r eligible based on patient's age to complete this topic Rotavirus Vaccines Aged Out No longer eligible based on patient's age to complete this topic Procedures Procedure Name Priority Date/Time Associated Diagnosis Comments Full PROPHYLAXIS - ADULT Routine 024 9:00 AM EDT Periodontal disease BITEWINGS - 4 RADIOGRAPHIC IMAGES Routine 03/27/2024 9:00 AM EDT 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 MEDICAID [facility] ADULT
== END 2024-07-24 13:43 | disposition home or self-care (01) ==
PROVIDERS: PCP Internal Medicine; Visit Provider Internal Medicine
DX: I25.10 Atherosclerotic heart disease of native coronary artery without angina pectoris (principal); I34.0 Nonrheumatic mitral (valve) insufficiency; I10 Essential (primary) hypertension; R60.0 Localized edema
CPT/HCPCS: 93010; 99214

== ENCOUNTER → 2024-07-24 12:44 | Outpatient (BNVA) | payer MEDICARE, SELFPAY | PROVIDERS: PCP Internal Medicine; Visit Provider Internal Medicine | DX: M48.061 Spinal stenosis, lumbar region without neurogenic claudication (principal); I25.10 Atherosclerotic heart disease of native coronary artery without angina pectoris; I34.0 Nonrheumatic mitral (valve) insufficiency; I10 Essential (primary) hypertension; R60.0 Localized edema; R94.31 Abnormal electrocardiogram [ECG] [EKG] | CPT/HCPCS: 93005; 99212 ==

== ENCOUNTER 2024-07-24 14:12 | Outpatient (AMB) | payer MEDICARE, SELFPAY ==
--- NOTE | 2024-07-24 14:14 | HO.SPINEOV ---
Intake Visit Reasons: CT follow up Intake Note: Ms. Barry is here today to F/u on the results to her CT. Health Data Administrator Required: No Allergies No Known Allergies [No Known Allergies*] Allergy (Verified 05/04/24 11:01) Assessment & Plan Assessment & Plan (1) Lumbar spinal stenosis: Code(s): M48.061 - Spinal stenosis, lumbar region without neurogenic claudication Category: Medical Plan Selene is a pleasant 69-year-old female comes in today for follow-up after having her CT scan completed a lumbar spine. She reports that she continues to suffer from low back pain, left leg pain and difficulty with ambulation. She has a very complex past medical history, see previous note for details. 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 She also has re-demonstrated osteopenia. We discussed how the 4-5 segment already is auto-fused as suspected, therefore treating this area with fusion would be counterproductive, unless done as a scoliosis correction surgery. Either way she would likely need to improve her bone quality to undergo this. I encouraged her to follow up with her PCP to discuss her osteopenia treatment and I will review this CT and MRI with Dr. Beltran to see if there is any specific surgical recommendation he would make for this patient. I will update this note accordingly if it differs from my impression. Osmel Beltran MD,PhD [facility] Coding Level of Care Code Est Pt Level 3 (13230) Diagnoses Lumbar spinal stenosis M48.061
--- OUTSIDE RECORDS SUMMARY | 2024-07-24 15:10 | XMS_ITS | Patient Health Record ---
Author Organization Aaron Rob MD Address [address] [place] [phone] Care Team Providers Care Pilot Safety Inspector Name Role Phone Aaron Rob Primary Care Provider Allergies No Known Allergies Results Component Value Reference Range Notes Complete Blood Count Auto Di ff Reviewed date:10/04/2023 02:49:19 PM Interpretation: Performing Lab:[facility], [address] [place] [phone] Notes/Report: White Blood Count 6.9 4.8-10.8 X10*3/uL [...] NRBC Abs Auto 0.000 0.0-0.012 X10*3/uL Comprehensive [place]. Panel Fa st Reviewed date:10/04/2023 02:51:23 PM Interpretation: Performing Lab:[facility], [address] [place] [phone] Notes/Report: Sodium 143 135-145 mmol/L Potassium 4.1 3.3-5.1 mmol/L Chloride 110 96-108 mmol/L Carbon Dioxide 28 22-29 mmol/L Anion Gap 9 12-20 Blood Urea Nitrogen 23 9-16 mg/dL Creatinine 0.65 0.5-1.4 mg/dL Estimated Glomerular Filt Rate > 60 NOTE: For -German individuals, multiply the result by 1.210. Chronic [...] Panel Reviewed date:10/04/2023 02:25:35 PM Interpretation: Performing Lab:[address] [phone] Notes/Report: Triglycerides 142 <150 mg/dL Desirable Triglyceride: [...] T4 Reviewed date:10/04/2023 02:23:24 PM Interpretation: Performing Lab:[address] [phone] Notes/Report: TSH reflex Free T4 0.95 0.32-4.0 uIU/mL Microalbumin, Random Reviewed date:10/04/2023 02:25:46 PM Interpretation: Performing Lab:[address] [phone] Notes/Report: Creatinine Urine 157.12 Microalbumin Urine 26.0 Microalbum/Creatinine Ratio Ur 16.5 <30 ug/mg cr Albumin/Creatinine Ratio Reference Ranges: Normal: < 30 ug/mg creatinine Microalbuminuria: 30 - 300 ug/mg creatinine Clinical Albuminuria: > 300 ug/mg creatinine Hemoglobin A1c Reviewed date:10/04/2023 02:25:18 PM Interpretation: Performing Lab:[facility], [address] [place] [phone] Notes/Report: Hemoglobin A1c % 5.2 <6.0 % [...] average glucose, using the formula of the C4I-Pqtvpwe Average Glucose study (ADAG), Diabetes Care, Vol.31,#8, 2007 UA ClnCatch+Micro w/rflx Cul t Reviewed date:10/04/2023 02:42:40 PM Interpretation: Performing Lab:[facility], [address] [place] [phone] Notes/Report: Urine, Clean Catch Color Urine Yellow Appearance Urine Cloudy PH 5.5 5.0-9.0 Glucose Urine UA Negative Negative mg/dL Urine Blood Trace Negative Specific [place] - Urine >= 1.030 1.005-1.025 Urine Protein Negative Neg-Trace mg/dL Urine Ketones Negative Negative mg/dL Nitrite Urine Negative Negative Leukocyte Esterase Urine Small (1+) Negative RBC Urine 11-20 0-2 /HPF WBC Urine 6-10 0-5 /HPF Squamous Epithelial Cell Urine 0-2 0-2 /HPF Calcium Oxalate Crystals Urine Present Bacteria Urine None Seen None Seen Hyaline Casts Urine 0-2 0-2 /LPF UA ClnCatch+Micro w/rflx Cul t Reviewed date:10/25/2023 07:32:44 AM Interpretation: Performing Lab:[facility], [address] [place] [phone] Notes/Report: Urine, Clean Catch Color Urine Yellow Appearance Urine Cloudy PH 6.5 5.0-9.0 Glucose Urine UA Negative Negative mg/dL Urine Blood Trace Negative Specific [place] - Urine 1.010 1.005-1.025 Urine Protein Negative Neg-Trace mg/dL Urine Ketones Negative Negative mg/dL Nitrite Urine Negative Negative Leukocyte Esterase Urine Large (3+) Negative RBC Urine 6-10 0-2 /HPF WBC Urine 11-20 0-5 /HPF Squamous Epithelial Cell Urine 11-20 0-2 /HPF Bacteria Urine 2+ None Seen Hyaline Casts Urine 0-2 0-2 /LPF UA ClnCatch+Micro w/rflx Cul t Reviewed date:11/12/2023 06:36:15 PM Interpretation: Performing Lab:[facility], [address] [place] [phone] Notes/Report: Urine, Clean Catch Color Urine Yellow Appearance Urine Clear PH 7.0 5.0-9.0 Glucose Urine UA Negative Negative mg/dL Urine Blood Negative Negative Specific [place] - Urine 1.015 1.005-1.025 Urine Protein Negative Neg-Trace mg/dL Urine Ketones Negative Negative mg/dL Nitrite Urine Negative Negative Leukocyte Esterase Urine Large (3+) Negative RBC Urine 0-2 0-2 /HPF WBC Urine 0-5 0-5 /HPF Squamous Epithelial Cell Urine 6-10 0-2 /HPF Bacteria Urine 1+ None Seen Hyaline Casts Urine 0-2 0-2 /LPF Liver Panel Reviewed date:06/04/2024 12:45:25 PM Interpretation: Performing Lab:[facility], [address] [place] [phone] Notes/Report: Bilirubin Total 0.9 0.0-1.0 mg/dL Bilirubin Direct 0.3 0.0-0.5 mg/dL Aspartate Amino Transferase 30 5-31 U/L Alanine Aminotransferase 16 0-31 U/L Total Protein 7.3 6.5-8.0 g/dL Albumin Level 4.0 3.5-5.0 g/dL Alkaline Phosphatase 122 39-117 U/L Glucose Fasting Reviewed date:06/04/2024 12:49:55 PM Interpretation: Performing Lab:[facility], [address] [place] [phone] Notes/Report: Glucose Fasting 109 60-99 mg/dL A fasting glucose from 100-125 mg/dl is considered impaired (pre-diabetes). Lipid Panel with Reflex Reviewed date:06/04/2024 12:45:35 PM Interpretation: Performing Lab:[facility], [address] [place] [phone] Notes/Report: Triglycerides 114 <150 mg/dL Desirable Triglyceride: [...] A1c Reviewed date:06/04/2024 12:44:41 PM Interpretation: Performing Lab:[facility], [address] [place] [phone] Notes/Report: Hemoglobin A1c % 5.3 <6.0 % [...] average glucose, using the formula of the C1Z-Ymawshj Average Glucose study (ADAG), Diabetes Care, Vol.31,#8, Jan. 2007 TSH reflex Free T4 Reviewed date:07/06/2024 05:11:26 PM Interpretation: Performing Lab:[facility], [address] [place] [phone] Notes/Report: TSH reflex Free T4 0.16 0.32-4.0 uIU/mL Occult Blood, Stool, Guaiac Reviewed date:10/27/2023 02:15:06 PM Interpretation:Negative Performing Lab: Notes/Report: Negative Occult Blood, Stool, Guaiac Neg Hold Gold Reviewed date:10/04/2023 02:25:54 PM Interpretation: Performing Lab:[facility], [address] [place] [phone] Notes/Report: Hold Gold See Note Specimen held untested for 24 hours; Call to request Chemistry testing. Urine Culture Reviewed date:10/04/2023 02:33:59 PM Interpretation: Performing Lab:[facility], [address] [place] [phone] Notes/Report: Urine Culture No growth. Urine Culture Reviewed date:10/25/2023 11:19:20 AM Interpretation: Performing Lab:[facility], [address] [place] [phone] Notes/Report: Urine Culture Report Result Urine Culture < 10,000 cfu/ml Urine Culture Reviewed date:11/12/2023 06:27:53 PM Interpretation: Performing Lab:[facility], [address] [place] [phone] Notes/Report: Urine Culture Report Result Urine Culture 10,000 to 50,000 cfu/ml Urine Culture Mixed bacterial herson a characteristic of Urine Culture urogenital contamination. Complete Blood Count Auto Di ff Reviewed date:01/23/2024 12:45:16 PM Interpretation: Performing Lab:[facility], [address] [place] [phone] Notes/Report: White Blood Count 6.1 4.8-10.8 X10*3/uL [...] te Reviewed date:01/23/2024 12:09:33 PM Interpretation: Performing Lab:[address] [phone] Notes/Report: Erythrocyte Sedimentation Rate 2 0-20 MM/HR Patients with polycythemia and many hemoglobin abnormalities may have depressed sed rates whereas patients with anemia may have elevated sed rates. Comprehensive Met. Panel Reviewed date:01/23/2024 12:12:34 PM Interpretation: Performing Lab:[address] [phone] Notes/Report: Sodium 141 135-145 mmol/L Potassium 4.0 3.3-5.1 mmol/L Chloride 110 96-108 mmol/L Carbon Dioxide 22 22-29 mmol/L Anion Gap 13 12-20 Blood Urea Nitrogen 20 9-16 mg/dL Creatinine 0.67 0.5-1.4 mg/dL Estimated Glomerular Filt Rate > 60 NOTE: For -German individuals, multiply the result by 1.210. Chronic [...] Protein Reviewed date:01/23/2024 12:09:42 PM Interpretation: Performing Lab:[facility], [address] [place] [phone] Notes/Report: C Reactive Protein 0.22 < or = 0.50 mg/dL XR knee LT 3V Reviewed date:04/27/2024 05:15:34 PM Interpretation: Performing Lab: Notes/Report: [address] [address] XRay Report Signed Patient: Selene Barry MR#: [id number] 3611 : 1955 Acct:[id number] Age/Sex: 68 / F ADM Date: 02/03/24 Loc: [facility] Attending Dr: Kasey LUKE Ordering Physician: Kasey Wesley Date of Service: 02/03/24 Procedure(s): XR knee LT 3V Accession Number(s): [id number] cc: Aaron Rob MD; Kasey Wesley EXAMINATION: [...] Mac Willson MD 04/27/2024 11:38 AM EDT Dictated By: Mac Spencer Signed By: <Electronically signed by Mac Arce in OV> 04/27/24 1138 DD/ 0954 TD/TT: 02/03/24 1022 Senior Enlisted Advisor: [address] [address] XRay Report Signed Patient: Selene Barry MR#: [id number] 3611 : 1955 Acct:[id number] Age/Sex: 68 / F ADM Date: 02/03/24 Loc: [facility] Attending Dr: Kasey LUKE Ordering Physician: Kasey Wesley Date of Service: 02/03/24 Procedure(s): XR kne e LT 3V Accession Number(s): [id number] cc: Aaron Rob MD; Kasey Wesley EXAMINATION: XR KNEE, LEFT CLINICAL INFORMATION: Pain COMPARISON: X-ray dated January 08, 2016 TECHNIQUE: Four views of the le ft knee. FINDINGS: No acute cortical disruption or gross malalignment. Joint space narrowing involving the medial and to a lesser extent lateral compartment. No lyti c or blastic lesions. No joint effusion, suprapatellar bursa. X R/XR knee LT 3V IMPRESSION: Bicompartmental osteoarthrosis without acute fracture or dislocation. Electronically kristine d by: Mac Willson MD 04/27/2024 11:38 AM EDT Dictated By: Mac Joya Signed By: <Electronically signed by Mac Arce in OV> 04/27/24 1138 DD/ 0954 TD/TT: 02/03/24 1022 Senior Enlisted Advisor: XR foot LT min 3V Reviewed date:04/27/2024 11:59:11 AM Interpretation: Performing Lab: Notes/Report: [address] [address] XRay Report Signed Patient: Selene Barry MR#: [id number] 3611 : 1955 Acct:[id number] Age/Sex: 68 / F ADM Date: 02/03/24 Loc: [facility] Attending Dr: Kasey LUKE Ordering Physician: Kasey Wesley Date of Service: 02/03/24 Procedure(s): XR foot LT min 3V Accession Number(s): [id number] cc: Aaron Rob MD; Kasey Wesley EXAMINATION: [...] 04/27/24 1045 DD/ 0954 TD/TT: 02/03/24 1022 Senior Enlisted Advisor: [place] [address] XRay Report Signed Patient: Selene Barry MR#: [id number] 3611 : 1955 Acct:[id number] Age/Sex: 68 / F ADM Date: 02/03/24 Loc: [facility] Attending Dr: Kasey LUKE Ordering Physician: Kasey Wesley Date of Service: 02/03/24 Procedure(s): XR sea t LT min 3V Accession Number(s): [id number] cc: Aaron Rob MD; Kasey Wesley EXAMINATION: XR FOOT, LEFT CLINICAL INFORMATION: Pain COMPARISON: None available. TECHNIQUE: AP, lateral, and obl ique views of the left foot. FINDINGS: Submitted for interpretation on April 27, 2024. No acute cortical disruption or malalignment. Degenerative changes in the first metatarsophalangeal joint. No lytic or blastic lesions. Small exostosis at the Achilles tendon insertion. X R/XR foot LT min 3V IMPRESSION: No acute fracture or dislocation. Electronically kristine d by: Mac Willson MD 04/27/2024 10:45 AM EDT RP Dictated By: Mac Joya Signed By: <Electronically signed by Mac Arce in OV> 04/27/24 1045 DD/ 0954 TD/TT: 02/03/24 1022 Senior Enlisted Advisor: XR lumbar spine 4V min Reviewed date:04/11/2024 06:48:51 PM Interpretation: Performing Lab: Notes/Report: [address] [address] XRay Report Signed Patient: Selene Barry MR#: [id number] 3611 : 1955 Acct:[id number] Age/Sex: 68 / F ADM Date: 02/03/24 Loc: [facility] Attending Dr: Kasey LUKE Ordering Physician: Kasey Wesely Date of Service: 02/03/24 Procedure(s): XR lumbar spine 4V min Accession Number(s): [id number] cc: Aaron Rob MD; Kasey Wesley EXAMINATION: [...] 04/09/24 0840 DD/ 0954 TD/TT: 02/03/24 1022 Senior Enlisted Advisor: [place] [address] XRay Report Signed Patient: Selene Barry MR#: [id number] 3611 : 1955 Acct:[id number] Age/Sex: 68 / F ADM Date: 02/03/24 Loc: [facility] Attending Dr: Kasey LUKE Ordering Physician: Kasey Wesley Date of Service: 02/03/24 Procedure(s): XR lum bar spine 4V min Accession Number(s): [id number] cc: Aaron Rob MD; Kasey Wesley EXAMINATION: XR LUMBOSACRAL SPINE CLINICAL INFORMATION: Spondylosis, without myelopathy or radiculopathy. COMPARISON: MRI lumbar spine preet ed 07/07/20112011 lumbar spine radiographs dated 11/26/2010. TECHNIQUE: AP, bilateral obliqu e and lateral views of the lumbar spine were submitted, together with a lateral view of the lumbosacral junction. FINDINGS: There is bony demineralization. There is a transitional lumbar vertebra, with 6 nonrib-bearing lumbar-type vertebra. There is a moderately severe thoracolumbar rotatory levoscoliosis. There is mild stable helper ior disc space narrowing at T12-L1 and L1-2. There is marked degenerati ve disc disease extending from L2-3 through the lumbosacral junction , with disc space narrowing and endplate arthropathy. Vacuum disc phenomenon is seen at L2-3 and L3-4. No acute fracture or spondylolisthesis is seen. The posterior elements are intact. No spondylolysis defect is seen on the oblique views. There is multi-level lumba r facet arthropathy. There are aortoiliac atherosclerotic calcifications. Pelvic phleboliths are seen. X R/XR lumbar spine 4V min IMPRESSION: 1. There is transiti onal anatomy of the lumbar spine. 2. There is multi-le marily degenerative disc disease and endplate and facet arthropathy. Degenerative disc disease is most severe at L2-3 through the lumbosac ral junction. 3. There is a modera tely severe thoracolumbar rotatory levoscoliosis. Electronically kristine d by: Jos Martínez MD 04/09/2024 08:40 AM EDT RP Dictated By: Ismael Martínez MD Signed By: <Electronically signed by Jos Martínez MD in OV> 04/09/24 0840 DD/ 0954 TD/TT: 02/03/24 1022 Senior Enlisted Advisor: RONALD MR lumbar spine wo con Reviewed date:03/15/2024 12:30:31 PM Interpretation: Performing Lab: Notes/Report: [place] [address] Magnetic Resonance Report Signed Patient: Selene Barry MR#: [id number] 3611 : 1955 Acct:[id number] Age/Sex: 68 / F ADM Date: 03/14/24 Loc: HO.MRI Attending Dr: Kasey LUKE Ordering Physician: Kasey Wesley Date of Service: 03/14/24 Procedure(s): MR lumbar spine wo con Accession Number(s): [id number] cc: Aaron Rob MD; Kasey Wesley EXAMINATION: [...] Irvin Mar MD 03/15/2024 10:01 AM EDT RP Dictated By: Irvin Mar MD Signed By: <Electronically signed by Irvin Mar MD in OV> 03/15/24 1001 DD/ 10 TD/TT: 03/14/242027 Senior Enlisted Advisor: [place] [address] Magnetic Resonance Report Signed Patient: Selene Barry MR#: [id number] 3611 : 1955 Acct:[id number] Age/Sex: 68 / F ADM Date: 03/14/24 Loc: HO.MRI Attending Dr: Kasey LUKE Ordering Physician: Kasey Wesley Date of Service: 03/14/24 Procedure(s): MR lum bar spine wo con Accession Number(s): [id number] cc: Aaron Rob MD; Kasey Wesley EXAMINATION: MR LUMBAR SPINE WITH OUT CONTRAST CLINICAL INFORMATION: Back surgery 10 year s ago. COMPARISON: None available. TECHNIQUE: MRI of the lumbar sp ine was obtained using routine sequences without contrast. FINDINGS: There is transitiona l anatomy. There are 5 nonrib-bearing lumbar-type vertebral bodies. S1 is lumbarized sharing severe disc volume loss with S2. There is a sever e leftward convex scoliotic curvature of the lower lumbar spine with th e apex at L4 where there is grade 1 left lateral listhesis at L4-L5. There is severe right-sided volume loss at L4-L5 and there is severe left-sided volume loss at L5-S1. There is moderate disc volume loss at L2-L3 and there is severe right-sided Loss of L3-L4. There are multilevel endplate osteophytes. Modic type I endplate signal ahumada ges at L3-L4 and L5-S1. No additional bone [...] traversing left L3 nerve root as well a s moderate left-sided foraminal stenosis with mass effect on the exitin g left L2 nerve root. Severe right-sided foraminal stenosis with compression of the exiting right L2 nerve. L3-L4: There is a background annular disc bulge and there is bilateral facet arthropathy an d ligamentum flavum thickening. There is moderate central canal stenos is. Advanced facet arthropathy results in severe right-sided foramina l stenosis with compression of the exiting right L3 nerve root. L4-L5: there are laminectomy changes and spondylitic changes result in moderate central can al stenosis as well as severe left and moderate right foraminal sten osis with mass effect on the exiting left greater than right L4 nerve roots. There is clumping of the cauda equina nerve roots at this level that may be the sequela of adhesive arachnoiditis. L5-S1: There is grad e 1 anterolisthesis with uncovering disc osteophyte and severe bilateral arthropathy. Left lateral disc osteophyte protrusion. Laminect ravinder changes. Findings in concert result in severe left subarticular zo ne stenosis with compression of the traversing left S1 nerve root as wel l as severe left and moderate right foraminal stenosis with compression of the exiting left nerve root. S1-S2: Diffuse disc osteophyte complex and bilateral facet arthropathy. Finding s in concert result in severe bilateral foraminal stenosis with compression of the exiting nerve roots bilaterally. M R/MR lumbar spine wo con IMPRESSION: * There is transitio nal anatomy. There are 5 nonrib-bearing lumbar-type vertebra l bodies. S1 is lumbarized sharing severe disc volume loss with S2. Please correlate with plain films prior to any percutaneous or surg ical intervention. * There is a severe leftward convex scoliotic curvature of the lower lumbar spine superimposed on advanced multilevel degenerative disc disease and hypertro phic facet arthropathy. * At T11-T12, there is slight grade 1 anterolisthesis that along with additional spondylit ic changes result in severe central canal stenosis, significant mass eff ect on the thoracic cord, and severe bilateral foraminal stenosis. * At L1-L2, a large right paracentral disc protrusion compresses the traversing right L2 nerve root the right subarticular zone and results in moderate central canal stenosis with flattening of the cord. * At L2-L3, a left paracentral/left lateral disc protrusion results in left subarticular zo ne stenosis with mass effect on the traversing left L3 nerve root as wel l as moderate left-sided foraminal stenosis with mass effect on the exiting left L2 nerve root. Severe right-sided foraminal stenosis w ith compression of the exiting right L2 nerve root. Mild to moderate steve tral canal stenosis. * At L3-L4, Advanced facet arthropathy results in severe right-sided foraminal stenosis w ith compression of the exiting right L3 nerve root. Moderate central can al stenosis at this level. * At L4-L5, there ar e laminectomy changes and spondylitic changes result in moderate central canal stenosis as well as severe left and moderate right luke inal stenosis with mass effect on the exiting left greater than right L 4 nerve roots. There is clumping of the cauda equina nerve roots a t this level that may be the sequela of adhesive arachnoiditis. * At L5-S1, there ar e laminectomy changes and spondylitic changes results in severe le ft subarticular zone stenosis with compression of the traversing left S1 nerve root as well as severe left and moderate right foraminal sten osis with compression of the exiting left nerve root. There is clump ing of the cauda equina nerve roots at this level that may be the sequ brittany of adhesive arachnoiditis. * At S1-S2, spondyli tic changes result in severe bilateral foraminal stenosis and shanda shaniqua of the exiting nerve roots bilaterally Electronically kristine d by: Irvin Mar MD 03/15/2024 10:01 AM EDT Dictated By: Irvin Mar MD Signed By: <Electronically signed by Irvin Mar MD in OV> 03/15/24 1001 DD/ 10 TD/TT: 03/14/242027 Senior Enlisted Advisor: GW MM tomosynthesis screening B I Reviewed date:03/28/2024 03:56:48 PM Interpretation: Performing Lab: Notes/Report: [address] [place] [address] Mammography Report Signed Patient: Selene Barry MR#: [id number] 3611 : 1955 Acct:[id number] Age/Sex: 68 / F ADM Date: 03/16/24 Loc: HO.MAMMO Attending Dr: Power Becker MD Ordering Physician: Power Becker MD Results: 1Negativ e Date of Service: 03/16/24 Follow Up: 1 Year From Orig inal Mammogram Procedure(s): MM tomosynthesis screening BI Accession Number(s): [id number] cc: Aaron Rob MD; Power Becker MD [...] 03/28/24 1159 DD/ 0830 TD/TT: 03/16/24 0840 Senior Enlisted Advisor: [address] [place] [address] Mammography Report Signed Patient: Selene Barry MR#: [id number] 3611 : 1955 Acct:[id number] Age/Sex: 68 / F ADM Date: 03/16/24 Loc: HO.MAMMO Attending Dr: Power Becker MD Ordering Physician: Power Becker MD Results: 1Negativ e Date of Service: 03/16/24 Follow Up: 1 Year From Orig inal Mammogram Procedure(s): MM tomosynthesis screening BI Accession Number(s): [id number] cc: Aaron Rob MD; Power Becker MD EXAMINATION: MM SCREENING DIGITAL BREAST TOMOSYNTHESIS, BILATERAL CLINICAL INFORMATION: Screening. Asymptomatic. COMPARISON: Mammography: Compari son is made with available priors TECHNIQUE: Digital breast mammography with tomosynthesis is performed in both the craniocaudal and mediolateral oblique views along with computer-aided detection (CAD). FINDINGS: There are scattered areas of fibroglandular density (ACR BI-RADS breast composition Category b). There are no signifi cant masses, abnormal calcifications, or other abnormalities. M M/MM tomosynthesis screening BI IMPRESSION: No mammographic evid ence of malignancy. ASSESSMENT: BI-RADS BI-RADS 1 - Negative RECOMMENDATION: Routine annual mammography screening. 1 year F/U This examination tiffanie uld not preclude the clinical evaluation of a suspicious palpable abnormality. This patient's information was entered into a reminder system with a target due date for their next mammogram. Electronically kristine d by: Tonia Viera DO 03/28/2024 11:59 AM EDT Dictated By: Tonia Viera DO Signed By: <Electronically signed by Tonia Viera DO in OV> 03/28/24 1159 DD/ 0830 TD/TT: 03/16/24 0840 Senior Enlisted Advisor: XR DEXA axial skeleton Reviewed date:04/03/2024 02:11:53 PM Interpretation: Performing Lab: Notes/Report: [facility] [address] [place] [address] Mammography Report Signed Patient: Selene Barry MR#: [id number] 3611 : 1955 Acct:[id number] Age/Sex: 68 / F ADM Date: 03/16/24 Loc: HO.MAMMO Attending Dr: Power Becker MD Ordering Physician: Power Becker MD Results: Date of Service: 03/16/24 Follow Up: Procedure(s): XR DEXA axial skeleton Accession Number(s): [id number] cc: Aaron Rob MD; Power Becker MD EXAMINATION: BONE DENSITOMETRY CLINICAL INDICATION: Menopause. COMPARISON: Previous BD dated 10/09/2021 and baseline BD dated 10/05/2016. TECHNIQUE: Using a [employer] DXA System (software version: 13.1) manufactured by [employer], dual-energy x-ray absorptiometry was performed of the [...] 04/03/24 0839 DD/ 0845 TD/TT: 03/16/24 09 Senior Enlisted Advisor: ABUNDIO [facility] [address] [place] [address] Dr. [facility], [place] [address] Mammography Report Signed Patient: Selene Barry MR#: [id number] 3611 : 1955 Acct:[id number] Age/Sex: 68 / F ADM Date: 03/16/24 Loc: MAMMO Attending Dr: Power Becker MD Ordering Physician: Power Becker MD Results: Date of Service: 03/16/24 Follow Up: Procedure(s): XR DEX A axial skeleton Accession Number(s): [id number] cc: Aaron Rob MD; Power Becker MD EXAMINATION: BONE DENSITOMETRY CLINICAL INDICATION: Menopause. COMPARISON: Previous BD dated 10/09/2021 and baseline BD dated 10/05/2016. TECHNIQUE: Using a [employer] Advance DXA System (software version: 13.1) [employer], dual-energy x-ray absorptiometry was performed of the lumbar spine and left hip. The images are of good technical quality. Summary results are attached. FINDINGS: LEFT FEMUR, NECK: Current: BMD 1.145 g/cm2, Z-score 2.0, T-score 0.8, normal. Prior: BMD 0.923 g/cm2. Baseline: BMD 0.751 g/cm2. LEFT FEMUR, TOTAL: Current: BMD 0.838 g/cm2, Z-score -0.4, T-score -1.3, osteopenia, 14.2% increase from previo us, 21.3% increase from baseline (<5% change is not significant). Prior: BMD 0.734 g/cm2. Baseline: BMD 0.691 g/cm2. AP SPINE L1-L2 (excluding L3 and L4): The data of L1-L4 has been changed to exclude t he L3 and L4 vertebral bodies, because significant degenerative change at these levels may cause overestimation of lumbar spine density. Current: BMD 1.037 g/cm2, Z-score 0.0, T-score -1.1, osteopenia, 5.1% increase from previo us, 11.9% increase from baseline (<5% change is not significant). Prior: BMD 0.987 g/cm2. Baseline: BMD 0.927 g/cm2. IDENTIFIED RISK FACTORS: Menopause, rheumatoi d arthritis. HISTORY OF FRACTURE: None listed. MEDICATIONS: Calcium, vitamin D. M M/XR DEXA axial skeleton IMPRESSION: 1. DIAGNOSIS: Osteop enia based on the lowest T-score value of -1.3 in the total femur appl yulissa World Health Organization criteria. 2. 10-YEAR FRACTURE RISK PREDICTION, FRAX: Major osteoporotic fracture (clinical spine, forearm, hip or shoulder) 4.1%. Hip fracture 0.1%. 3. Treatment Recommendations: NOF guidelines recommend consideration for treatment in postmenopausal women and men age 50 and older presenting with the following: -A hip or vertebral (clinical or morphometric) fracture. -T-score less than o r equal to -2.5 at the femoral neck or spine after appropriate evaluati on to exclude secondary causes. -Low bone mass at th e hip or spine and a 10-year fracture probability by FRAX of greater t vanessa or equal to 3% for hip fracture or greater than or equal to 20% for major osteoporotic fracture based on the [place] adapted WHO algorithm. 4. Other Recommendations: All treatment decisions require clinical judgment and consideration of individual patient factors, including patient preferences, comorbidities, previous drug use, risk factors not captured in the FRAX model (e.g. frailty, falls, vitamin D deficiency, increased bone turno ramirez, interval significant decline in bone density) and possible under o r overestimation of fracture risk by FRAX. Additional medical evaluation for secondary cause of low bone mineral density may be appropriate. FUTURE SCAN RECOMMENDATION: People with diagnose d cases of osteoporosis or at high risk for fracture should have regular bone mineral density tests. For patients eligible for Medicar e, routine testing is allowed once every 2 years. The testing frequenc y can be increased to one year for patients who have rapidly progres sing disease, those who are receiving or discontinuing medica l therapy to restore bone mass, or have additional risk factors. Electronically kristine d by: Nelson Newby MD 04/03/2024 08:39 AM EDT Dictated By: Nelson Newby MD Signed By: <Electronically signed by Nelson Newby MD in OV> 04/03/24 0839 DD/ 0845 TD/TT: 03/16/24 09 Senior Enlisted Advisor: ABUNDIO MR thoracic spine wo con Reviewed date:04/04/2024 06:26:06 PM Interpretation: Performing Lab: Notes/Report: [address] [address] Magnetic Resonance Report Signed Patient: Selene Barry MR#: [id number] : 1955 Acct:[id number] Age/Sex: 68 / F ADM Date: 04/02/24 Loc: HO.MRI Attending Dr: Osmel MARADIAGA Ordering Physician: Osmel Mckoy Date of Service: 04/02/24 Procedure(s): MR thoracic spine wo con Accession Number(s): [id number] cc: Aaron Rob MD; Osmel Mckoy EXAMINATION: [...] Guzman MD in OV> 04/03/24 1509 DD/ 183 TD/TT: 04/02/24 1855 Senior Enlisted Advisor: [place] [address] Magnetic Resonance Report Signed Patient: Selene Barry MR#: [id number] : 1955 Acct:[id number] Age/Sex: 68 / F ADM Date: 04/02/24 Loc: HO.MRI Attending Dr: Osmel MARADIAGA Ordering Physician: Osmel Mckoy Date of Service: 04/02/24 Procedure(s): MR thoracic spine wo con Accession Number(s): [id number] cc: Aaron Rob MD; Osmel Mckoy EXAMINATION: MR THORACIC SPINE WITHOUT CONTRAST CLINICAL INFORMATION: Other spondylosis wi th myelopathy, thoracic region COMPARISON: None available. TECHNIQUE: MRI of the thoracic spine was obtained using routine sequences without contrast. FINDINGS: Preservation of the normal thoracic kyphosis. No listhesis. Probable intraosseous hemangi eric involving the majority of T8. Otherwise, no acute bone marrow abnormality. The vertebral body heights are preserved. Multileve l disc desiccation without significant disc height loss. Acute reactive endplate changes at T5-6 and C6-7 anteriorly. Multilevel endplate osteophytosis. The visualized spina l cord is normal in caliber. No abnormal cord signal. There are disc bulge s at multiple levels throughout the thoracic spine. Of note, T7-8: Diffuse disc bulge. Mild spinal canal stenosis. No significant neural foraminal narrowing. T8-9: Diffuse disc b ulge with superimposed right paracentral disc protrusion. There is mild to moderate spinal canal stenosis with distortion of the th ecal sac an indentation of the cord. Mild right neural foraminal narrowing. T9-10: Diffuse disc bulge. Mild spinal canal stenosis. Moderate to severe left and mild right neural foraminal narrowing with impingement of the left exiting T9 nerve roots. T10-11: Diffuse disc bulge. Moderate spinal canal stenosis. Moderate to severe left and mode rate right neural foraminal narrowing with mass effect on the exitin g T10 nerve roots bilaterally. T11-12: Diffuse disc bulge, ligamentum flavum hypertrophy, bilateral facet arthrosis. Moderate to severe spinal canal stenosis with impingement of the c ord. Severe left greater than right neural foraminal narrowing with mass effect on the exiting T11 nerve roots. The paravertebral so ft tissues are unremarkable. The imaged intrathoracic and up per intra-abdominal structures are grossly within normal limits. M R/MR thoracic spine wo con IMPRESSION: -Multilevel degenera tive changes of the thoracic spine, worst at T11-T12 where there is moderate to severe spinal canal stenosis with impingement of the c ord and severe bilateral neural foraminal narrowing. No eviden ce of abnormal cord signal. -Additional multilev el degenerative changes throughout the thoracic spine as described a sonia with moderate spinal canal stenosis at T10-T11 and mild to moderate spinal canal stenosis at T8-T9. There is moderate to severe left neura l foraminal narrowing at T9-T10 and T10-T11 with impingement of the exiting left T9 and bilateral T10 nerve roots. Electronically kristine d by: Eliane Guzman MD 04/03/2024 03:09 PM EDT Dictated By: Eliane Guzman MD Signed By: <Electronically signed by Eliane Guzman MD in OV> 04/03/24 1509 DD/ 1830 TD/TT: 04/02/24 1855 Senior Enlisted Advisor: Complete Blood Count Auto Di ff Reviewed date:05/03/2024 12:29:13 PM Interpretation: Performing Lab:[facility], [address] [place] [phone] Notes/Report: White Blood Count 6.5 4.8-10.8 X10*3/uL [...] te Reviewed date:05/03/2024 12:46:33 PM Interpretation: Performing Lab:[facility], [address] [place] [phone] Notes/Report: Erythrocyte Sedimentation Rate 5 0-20 MM/HR Patients with polycythemia and many hemoglobin abnormalities may have depressed sed rates whereas patients with anemia may have elevated sed rates. Comprehensive Met. Panel Reviewed date:05/03/2024 12:46:22 PM Interpretation: Performing Lab:[facility], [address] [place] [phone] Notes/Report: Sodium 141 135-145 mmol/L Potassium 4.5 3.3-5.1 mmol/L Slight Hemolysis.Interpret result with caution. Chloride 108 96-108 mmol/L Carbon Dioxide 21 22-29 mmol/L Anion Gap 17 12-20 Blood Urea Nitrogen 15 9-16 mg/dL Creatinine 0.60 0.5-1.4 mg/dL Estimated Glomerular Filt Rate > 60 NOTE: For -German individuals, multiply the result by 1.210. Chronic [...] Protein Reviewed date:05/03/2024 12:28:49 PM Interpretation: Performing Lab:[facility], [address] [place] [phone] Notes/Report: C Reactive Protein 0.61 < or = 0.50 mg/dL Hepatitis A,B,C Profile Reviewed date:05/03/2024 12:28:29 PM Interpretation: Performing Lab:[facility], [address] [place] [phone] Notes/Report: Hepatitis A Antibody IgM Nonreactive Nonreactive [...] TB Reviewed date:05/06/2024 12:59:20 PM Interpretation: Performing Lab:[facility], [address] [place] [phone] Notes/Report: TSpotTB Negative Negative A negative test [...] Passed For additional information, please refer to http://education.[employer]/fa q/RVF457 (This link is being provided for informational/ educational purposes only.) THIS TEST WAS PERFORMED AT: [facility]/[address] [address] RACHELL OLIVAREZ MD,PHD CT lumbar spine wo con Reviewed date:07/23/2024 05:20:34 PM Interpretation: Performing Lab: Notes/Report: [address] [address] [address] Scan Report Signed Patient: Selene Barry MR#: [id number] : 1955 Acct:[id number] Age/Sex: 69 / F ADM Date: 05/11/24 Loc: HO.CT Attending Dr: Osmel MARADIAGA Ordering Physician: Osmel Mckoy Date of Service: 05/11/24 Procedure(s): CT lumbar spine wo IV con Accession Number(s): [id number] cc: Aaron Rob MD; Osmel Mckoy Report Number: [id number]: Total DLP = 681.00 mGy-cm EXAMINATION: CT LUMBAR SPINE WITHOUT CONTRAST CLINICAL INFORMATION: Lumbar radiculopathy. COMPARISON: Lumbar spine MRI from 03/14/2024. TECHNIQUE: Multidetector helical imaging of the lumbar spine was obtained without intravenous contrast. Multiple axial reformats and coronal/sagittal reconstructions were created the technologist workstation for review. This CT examination was performed using dose optimization techniques as appropriate, variously including the following: *Automated exposure control. *Adjustment of mA and/or kV according to patient size (this includes techniques or standardized protocols for targeted exams where dose is matched to indication/reason for exam; i.e. extremities or head). *Use of iterative reconstruction technique. DLP: 681 mGy-cm FINDINGS: Transitional vertebral anatomy. There is lumbarization of S1. Moderate left convex curvature of the lumbar spine centered on L4. Mild right lateral translation of L2 on L3. Moderate left lateral translation of L4 on L5. Straightening of the normal lumbar lordosis. Minimal degenerative grade 1 anterolisthesis of L5-S1. Chronic left-sided L5 pars interarticularis defect. No evidence of acute fracture or traumatic subluxation. The vertebral body heights are largely maintained. Advanced degenerative disc disease from L1-S1. No suspicious lytic or sclerotic osseous lesions. Laminectomy changes from L4-S1. No significant abnormalities of the paraspinal musculature. Moderate pancolonic diverticulosis. Otherwise, limited evaluation of the intra-abdominal structures without significant abnormalities. The abdominal aorta is of normal contour and caliber with moderate calcific atherosclerotic disease. AXIAL SPINAL LEVELS: L1-L2: Mild diffuse disc bulge with superimposed right subarticular disc extrusion. There is moderate right and mild left facet joint arthropathy. There is mild right and no left neural foraminal stenosis. There appears to be stenosis of the right subarticular zone with mild spinal canal stenosis centrally. L2-L3: Moderate diffuse disc bulge with posterior osseous ridging. There is severe right and moderate left facet joint arthropathy. There is severe right and moderate left neural foraminal stenosis. There appears to moderate spinal canal stenosis. L3-L4: Prominent diffuse disc bulge with posterior osseous ridging. There is severe right and moderate left facet joint arthropathy. There is severe right and moderate left neural foraminal stenosis. There appears to be moderate spinal canal stenosis. L4-L5: Moderate posterior osseous ridging. The facets are fused moderate hypertrophic change. There is severe right and moderate left neural foraminal stenosis. Posterior decompression. There appears to be moderate spinal canal stenosis. L5-S1: Moderate posterior osseous ridging. The left-sided facet joint is fused with prominent hypertrophic change. There is moderate right-sided facet joint arthropathy. There is severe left and moderate right neural foraminal stenosis. There appears to be stenosis of the left subarticular zone and mild spinal canal stenosis centrally. S1-S2: Moderate posterior osseous ridging. There is moderate bilateral facet joint arthropathy. There is moderate to severe bilateral neural foraminal stenosis. There is no demonstrated spinal canal stenosis. CT/CT lumbar spine wo IV con IMPRESSION: Transitional vertebral anatomy. There is lumbarization of S1. 1. No evidence of acute fracture or traumatic subluxation of the lumbar spine. Laminectomy changes from L4-S1. 2. 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 Most notably on this limited exam without intrathecal contrast, there appears to be moderate spinal canal stenoses at L2-L3, L3-L4, L4-L5, and L5-S1. Mild spinal canal stenoses at L1-L2 and L5-S1. Stenoses of the right subarticular zone at L1-L2 and L2-L3. Moderate to severe neural foraminal stenoses from L2-S1. 3. Pancolonic diverticulosis. Electronically signed by: García Benitez DO 07/23/2024 04:41 AM EST Dictated By: Marito Benitez DO Signed By: <Electronically signed by Marito Benitez DO in OV> 07/23/24 0441 DD/ 1318 TD/TT: 05/11/24 1345 Senior Enlisted Advisor: KYAW [address] [address] [address] Scan Report Signed Patient: Selene Barry MR#: [id number] : 1955 Acct:[id number] Age/Sex: 69 / F ADM Date: 05/11/24 Loc: HO.CT Attending Dr: Osmel MARADIAGA Ordering Physician: Osmel Mckoy Date of Service: 05/11/24 Procedure(s): CT lum bar spine wo IV con Accession Number(s): [id number] cc: Aaron Rob MD; Osmel Mckoy Report Number: [id number]: Total DLP = 681.00 mGy-cm EXAMINATION: CT LUMBAR SPINE WITH OUT CONTRAST CLINICAL INFORMATION: Lumbar radiculopathy. COMPARISON: Lumbar spine MRI fro m 03/14/2024. TECHNIQUE: Multidetector helica l imaging of the lumbar spine was obtained without intravenous contrast . Multiple axial reformats and coronal/sagittal reconstructions were created the technologist workstation for review. This CT examination was performed using dose optimization techniques as appropriate, various ly including the following: *Automated exposure control. *Adjustment of mA an d/or kV according to patient size (this includes techniques or standardized protocols for targeted exams where dose is matched to indication/reason for exam; i.e. extremities or head). *Use of iterative reconstruction technique. DLP: 681 mGy-cm FINDINGS: Transitional vertebr al anatomy. There is lumbarization of S1. Moderate left convex curvature of the lumbar spine centered on L4. Mild right lateral translation of L2 on L3. Moderate left lateral translation of L4 on L5. Straightening of the normal lumbar lordosis. Minimal degenerative grade 1 anterolisthesis of L5-S1. Chronic left-sided L5 pars interarticularis defect. No evidence of acute fracture or traumati c subluxation. The vertebral body heights are largely maintained. Advanced degenerative disc disease from L1-S1. No suspicious lytic or sclerotic osseous lesions. Laminectomy changes from L4-S1. No significant abnormalities of the paraspinal musculatu re. Moderate pancolonic diverticulosis. Otherwise, limited evaluation o f the intra-abdominal structures without significant abnormalities. The abdominal aorta is of normal contour and caliber with moderat e calcific atherosclerotic disease. AXIAL SPINAL LEVELS: L1-L2: Mild diffuse disc bulge with superimposed right subarticular disc extrusion. Ther e is moderate right and mild left facet joint arthropathy. There i s mild right and no left neural foraminal stenosis. There appears to be stenosis of the right subarticular zone with mild spinal canal stenosi s centrally. L2-L3: Moderate diff use disc bulge with posterior osseous ridging. There is severe righ t and moderate left facet joint arthropathy. There is severe right and moderate left neural foraminal stenosis. There appears to moderate spinal canal stenosis. L3-L4: Prominent dif fuse disc bulge with posterior osseous ridging. There is severe righ t and moderate left facet joint arthropathy. There is severe right and moderate left neural foraminal stenosis. There appears to be modera te spinal canal stenosis. L4-L5: Moderate posterior osseous ridging. The facets are fused moderate hypertrophi c change. There is severe right and moderate left neural foraminal stenosis. Posterior decompression. There appears to be moderate spinal levi l stenosis. L5-S1: Moderate posterior osseous ridging. The left-sided facet joint is fused with promin ent hypertrophic change. There is moderate right-sided facet rodney int arthropathy. There is severe left and moderate right neural foramin al stenosis. There appears to be stenosis of the left subarticular zo ne and mild spinal canal stenosis centrally. S1-S2: Moderate posterior osseous ridging. There is moderate bilateral facet joint arthropa thy. There is moderate to severe bilateral neural foraminal stenosis. There is no demonstrated spinal canal stenosis. C T/CT lumbar spine wo IV con IMPRESSION: Transitional vertebr al anatomy. There is lumbarization of S1. 1. No evidence of ac [place] fracture or traumatic subluxation of the lumbar spine. Laminectomy changes from L4-S1. 2. Advanced multilev el degenerative spondyloarthropathy of the lumbar spine as described i n detail above. Most notably on this limited exam without intrathecal contrast, there appears to be moderate spinal canal stenoses at L2-L3, L3-L4, L4-L5, and L5-S1. Mild spinal canal stenoses at L1-L2 and L5-S1. Stenoses of the right subarticular zone at L1-L2 and L2-L3. Moderate to severe neural foraminal stenoses from L2-S1. 3. Pancolonic diverticulosis. Electronically kristine d by: García Benitez DO 07/23/2024 04:41 AM EST Dictated By: Marito Benitez DO Signed By: <Electronically signed by Marito Benitez DO in OV> 07/23/24 0441 DD/ 1318 TD/TT: 05/11/24 1345 Senior Enlisted Advisor: KYAW Monsivais Reviewed date:06/04/2024 12:48:56 PM Interpretation: Performing Lab:[facility], [address] [place] [phone] Notes/Report: Hold Gold See Note Specimen held untested for 24 hours; Call to request Chemistry testing. XR chest 2V Reviewed date:07/06/2024 12:50:13 PM Interpretation:CBACK 07/06/24 Performing Lab: Notes/Report: [address] [address] XRay Report Signed Patient: Selene Barry MR#: [id number] : 1955 Acct:[id number] Age/Sex: 69 / F ADM Date: 06/29/24 Loc: [facility] Attending Dr: Aaron Rob MD Ordering Physician: Aaron Rob MD Date of Service: 06/29/24 Procedure(s): XR chest 2V Accession Number(s): [id number] cc: Aaron Rob MD CLINICAL HISTORY: Acute URI Chest two views Comparison: None Findings: Interstitial prominence of uncertain chronicity. No venous distention or overt pulmonary edema. No consolidation or pleural effusion. Upper normal heart size. Median sternotomy changes. Normal mediastinal contour with trachea midline. No acute appearing bone abnormality. Upper abdomen unremarkable. Impression: No focal infiltrate/consolidation. Interstitial prominence of uncertain chronicity. Can not exclude interstitial pneumonitis. This document has been electronically signed by: Leon Grajeda MD on 07/02/2024 10:55:02 Dictated By: Leon Grajeda MD Signed By: <Electronically signed by Leon Grajeda MD in OV> 07/02/24 1055 DD/ 1055 TD/TT: 07/02/24 1055 Senior Enlisted Advisor: [address] [address] XRay Report Signed Patient: Selene Barry MR#: [id number] : 1955 Acct:[id number] Age/Sex: 69 / F ADM Date: 06/29/24 Loc: [facility] Attending Dr: Aaron Rob MD Ordering Physician: Aaron Rob MD Date of Service: 06/29/24 Procedure(s): XR tigist st 2V Accession Number(s): [id number] cc: Aaron Rob MD CLINICAL HISTORY: Ac [place] URI Chest two views Comparison: None Findings: Interstitial promine nce of uncertain chronicity. No venous distention or overt pulmonary piol a. No consolidation or pleural effusion. Upper normal heart s ize. Median sternotomy changes. Normal mediastinal contour with trachea midline. No acute appearing b one abnormality. Upper abdomen unremarkable. Impression: No focal infiltrate/consolidation . Interstitial promine nce of uncertain chronicity. Can not exclude interstitial pneumonitis. This document has be en electronically signed by: Leon Grajeda MD on 07/02/2024 10:55:02 Dictated By: Leon Grajeda MD Signed By: <Electronically signed by Leon Grajeda MD in OV> 07/02/24 105 DD/ 54 TD/TT: 07/02/241054 Senior Enlisted Advisor: Free T4 (Free Thyroxine) Reviewed date:07/06/2024 05:11:14 PM Interpretation: Performing Lab:[facility], [address] [place] [phone] Notes/Report: Free T4 (Free Thyroxine) 1.31 0.71-1.85 ng/dL Afshan Monsivais Reviewed date:07/06/2024 01:24:48 PM Interpretation: Performing Lab:[facility], [address] [place] [phone] Notes/Report: Afshan Monsivais See Note Specimen held untested for 24 hours; Call to request Chemistry testing. Reason For Referral No Information Medications Medication SIG (Take, Route, Frequency, Duration) Notes Start Date End Date Status Aspir-81 81 MG 1 tablet Orally Once a day Active Guaiatussin AC 100-10 MG/5ML 10 mL as needed Orally every 4 hrs for 10 days 06/29/2024 Active Calcium + D 315-200 MG-UNIT 1 tablet Orally 500/125 once a day Active Amoxicillin-Pot Clavulanate 875-125 MG 1 tablet Orally every 12 hrs for 7 days 08/25/2023 Not-Taking Lasix 20 MG 1 tablet Orally Once a day Active Docusate Sodium 100 MG 1 capsule as need ed Orally Once a day Not-Taking Albuterol Sulfate (2.5 MG/3ML) 0.083% 3 ml Inhalation Three times a day 06/15/2012 Active Enbrel 50 MG/ML 1 mL Subcutaneous Active Synthroid 100 MCG 1 tablet in the morn ing on an empty stomach Orally Once a day for 30 day(s) Active Omeprazole 20 MG Take 1 capsule by [facility] once daily for 90 Active Estradiol 0.1 [...] 1 tablet Orally twice a day Active Immunizations Vaccine Route Administration Date Status Comme nts [...] Administer ed Flu Vaccine Unknown 04/01/2014 Pending Social History Tobacco Use: Social History Observation Description Date Details (start date - stop date) Former Smoker NA - NA Tobacco Use/Smoking Question Answer Notes Patient is a former smoker How long has it been since y ou last smoked? > 10 years Additional Findings: Tobacco Non-User Fo rmer smoker, currently using no form of tobacco Alcohol Screen Question Answer Notes Did you have a drink containing alcohol in the p ast year? 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) Active confirmed Problem 55387086 Lumbar disc dise ase (M51.9) Active confirmed Problem 77063660 Essential hypert ension (I10) Active confirmed Problem 154530633 Mild intermitten t asthma without complication (J45.20) Active confirmed Problem 0303316 Prediabetes (R73.09) Active confirmed Problem 017717876 Chronic systolic congestive heart failure (I50.22) Active confirmed Problem 47662745 Hyperthyroidism (E05.90) Active confirmed Problem 813796612 Rheumatoid arthr itis involving multiple sites, 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) Active confirmed Problem 104522519 Graves disease (E05.00) Active confirmed Problem 103657246 History of coron marie artery bypass graft (Z95.1) Active confirmed Problem 3087373 Thyromegaly (E04.9) Active confirmed Problem 914086938 Non-rheumatic mi tral regurgitation (I34.0) Active confirmed Problem 312788852 Thyroid cancer (C73) Active confirmed Problem 592818101 Vaginal bleeding (N93.9) Active confirmed Problem 95624761 Sciatica of righ t side (M54.31) Active confirmed Problem 63678548 Hypercholesterol emia (E78.00) Active confirmed Problem 6279767120957 Coronary artery disease of [place] artery of [place] heart with stable angina pectoris (I25.118) Active confirmed Problem [id number] Atrophy of vagin a (N95.2) Active confirmed Problem [id number] Vaginal prolapse (N81.10) Active confirmed Vital Signs Blood pressure diastolic 60 mm Hg 07/06/2024 Height 63.5 in 07/06/2024 Blood pressure systolic 148 mm Hg 07/06/2024 Weight 189 lbs 07/06/2024 BMI 32.95 kg/m2 07/06/2024 Encounters Encounter Location Date Provider Diagnosis Aaron Rob MD [address] [place] [address] [id number] 10/03/2023 Aaron Rob Essential hypertensi on I10 ; Lymphocytosis D72.820 ; Thyromegaly E04.9 ; Chronic systolic congestive heart failure I50.22 ; Hypercholesterolemia E78.00 and Prediabetes R73.09 Aaron Rob MD [address] [place] [address] [id number] 10/24/2023 Aaron Rob Hematuria R31.9 Aaron Rob MD [address] [place] [address] [id number] 11/11/2023 Aaron Rob Hematuria, unspecifi ed type R31.9 Aaron Rob MD [address] [place] [address] [id number] 06/04/2024 Aaron Rob Prediabetes R73.09 a nd Hypercholesterolemia E78.00 Aaron Rob MD [address] [place] [address] [id number] 08/25/2023 Aaron Rob Bilateral otitis med ia, unspecified otitis media type H66.93 Aaron Rob MD [address] [place] [address] [id number] 10/11/2023 Aaron Rob Microscopic hematuri a R31.29 ; Atrophy of vagina N95.2 ; Essential hypertension I10 ; Hyperthyroidism E05.90 ; Prediabetes R73.09 ; Mild intermittent asthma without complication J45.20 ; Chronic systolic congestive heart failure I50.22 ; Hypercholesterolemia E78.00 and Depression screening Z13.31 Aaron Rob MD [address] [place] [address] [id number] 04/16/2024 Aaron Rob Encounter for administration of vaccine Z23 Aaron Rob MD [address] [place] [address] [id number] 06/11/2024 Aaron Rob Vaginal prolapse N81 .10 ; Essential hypertension I10 and Rheumatoid arthritis involving multiple sites, unspecified rheumatoid factor presence M06.9 Aaron Rob MD [address] [place] [address] [id number] 06/21/2024 Aaron Rob Mild intermittent as thma without complication J45.20 Aaron Rob MD [address] [place] [address] [id number] 06/29/2024 Aaron Rob Acute URI J06.9 Aaron Rob MD [address] [place] [address] [id number] 07/06/2024 Aaron Rob Mild intermittent as thma without complication J45.20 ; Hyperthyroidism E05.90 and Pneumonitis, interstitial J84.89 Aaron Rob MD [address] [place] [address] [id number] 10/24/2023 Aaron Rob Colon cancer screeni Z12.11 Assessments Encounter Date Diagnosis (ICD Code) Assessment Notes Treatment Notes Treatment Clinical Notes Section Notes 10/03/2023 Essential hypertensi on (ICD-10 - I10) 10/03/2023 Lymphocytosis (ICD-1 0 - D72.820) 11/11/2023 Hematuria, unspecifi ed type (ICD-10 - R31.9) 06/04/2024 Prediabetes (ICD-10 - R73.09) 06/04/2024 Hypercholesterolemia (ICD-10 - E78.00) 08/25/2023 Bilateral otitis med ia, unspecified otitis media type (ICD-10 - H66.93) patient verbalized understanding of medication and directions 10/11/2023 Microscopic hematuri a (ICD-10 - R31.29) has been evaluated by gu 10/11/2023 Atrophy of vagina (ICD-10 - N95.2) 04/16/2024 Encounter for administration of vaccine (ICD-10 - Z23) 06/11/2024 Vaginal prolapse (ICD-10 - N81.10) is trying to decide if surgery or pessary. will try pessary, 06/21/2024 Mild intermittent asthma without complication (ICD-10 - J45.20) 06/29/2024 Acute URI (ICD-10 - J06.9) THE XRAY ORDER WAS FAXED TO [facility] PATIENT REG. PATIENT AWARE, patient verbalized understanding of medication and directions for use, pending diagnostic testing 07/06/2024 Mild intermittent asthma without complication (ICD-10 - J45.20) discussed findings of recent chst xray with paient, not coughing/ future order given to patient, will cntinue to monitor 07/06/2024 Hyperthyroidism (ICD -10 - E05.90) pending labs 10/24/2023 Colon cancer screeni ng (ICD-10 - Z12.11) 10/03/2023 Thyromegaly (ICD-10 - E04.9) 10/24/2023 Hematuria (ICD-10 - R31.9) 10/11/2023 Essential hypertensi on (ICD-10 - I10) well controlled, will continue current regiment and will continue to monitor 06/11/2024 Essential hypertensi on (ICD-10 - I10) running a little highwill continue current regiment and will contiue to monitor 07/06/2024 Pneumonitis, interstitial (ICD-10 - J84.89) will contiue to monitor , pending future chest xray 10/03/2023 Chronic systolic congestive heart failure (ICD-10 - I50.22) 10/11/2023 Hyperthyroidism (ICD -10 - E05.90) doing well, will continue current regiment 06/11/2024 Rheumatoid arthritis involving multiple sites, unspecified rheumatoid factor presence (ICD-10 - M06.9) doing better on embrel, will continue current regiment 10/03/2023 Hypercholesterolemia (ICD-10 - E78.00) 10/11/2023 Prediabetes (ICD-10 - R73.09) stable, no need for medication at this time 10/03/2023 Prediabetes (ICD-10 - R73.09) 10/11/2023 Mild intermittent asthma without complication (ICD-10 - J45.20) stable, will continue current regiment 10/11/2023 Chronic systolic congestive heart failure (ICD-10 - I50.22) stable, will continue current regiment 10/11/2023 Hypercholesterolemia (ICD-10 - E78.00) doing well, will continue current regiment 10/11/2023 Depression screening (ICD-10 - Z13.31) negative screen Plan Of Treatment Pending Test Test Name Order Date Electrocardiogram (EKG) 06/07/2019 XR CHEST 2 VIEW PA & LAT 05/23/2023 XR CHEST 2 VIEW PA & LAT 06/29/2024 BONE DENSITY DEXA 07/03/2021 Next Appt Details Provider Name:Aaron Atkinson ier, 08/10/2024 10:15:00 AM, [address], [address], [place], [place], [phone], Provider Name:Aaron Atkinson ier, 10/04/2024 07:45:00 AM, [address], [address], [place], [place], [phone], Provider Name:Aaron Atkinson ier, 10/11/2024 11:00:00 AM, [address], [address], [place], [place], [phone], Insurance Providers Payer Name Payer Address Payer Phone Subscriber Number Group Number Insured Name Patient Relationship to Insured Coverage Start Date Coverage End Date MEDICARE [employer] [address] [place] [address] [id number] Selene Valdovinos Self - patient is the insured [place] [id number] Selene Valdovinos Self - patient is the insured Medical (General) History Medical History History ICD Code colonoscopy - 03/2008 hyperp lastic polyp due 03/[address] Lan; Colonoscopy done 07/14/[address] 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
--- OUTSIDE RECORDS SUMMARY | 2024-07-24 15:10 | XMS_ITS | Clinical Summary ---
Author Organization [employer] [facility] Address [address] [place] [address] [address] [place] [address] Care Team Providers Care Electric Motor Tester Name Role Phone Unavailable Primary Care Provider [...] Recently Relevant to Health Maintenance Insurance MEDICARE [facility] MEDICAID [facility] ADULT
--- OUTSIDE RECORDS SUMMARY | 2024-07-24 15:10 | XMS_ITS | Encounter Summary ---
Author Organization [employer] [facility] Address [address] [place] [address] Care Team Providers Care Demand Equipment Repairer Name Role Phone Unavailable Primary Care Provider Unavailabl e Encounter Details Date Type Department Care Team (Late st Contact Info) Description 03/01/2023 Abstract [facility] [address] [place] [address] Sunny Martin, KATHARINA [address] [place] [address] Social History Tobacco Use Types Packs/Day Years [...]
== END 2024-07-24 14:59 | disposition home or self-care (01) ==
PROVIDERS: PCP Internal Medicine; Visit Provider Physician Assistant
DX: M48.061 Spinal stenosis, lumbar region without neurogenic claudication (principal)
CPT/HCPCS: 99213

== ENCOUNTER 2024-07-30 09:54 | Outpatient (AMB) | payer MEDICARE, MEDICAID, SELFPAY ==
--- NOTE | 2024-07-30 09:57 | A.OFFVIS_ITS ---
Vital Signs 07/30/24 10:00 Height 5 ft 3.06 in Weight 189 lb 9.561 oz BMI 33.5 BP 146/72 H Blood Pressure Location Rt brachial Position Sitting Pulse 69 Pulse Source Pulse Oximeter Intake Visit Reasons: Osteoporosis Intake Note: New patient externally referred for Osteoporosis. School Physical Therapist Required: No Accompanied by: Daughter Allergies No Known Allergies [No Known Allergies*] Allergy (Verified 07/30/24 10:01) Medication List - Last Reconciled 07/30/24 by Angelo Andrew MD acetaminophen 650 mg PO Q6H PRN amlodipine 2.5 mg PO DAILY aspirin (Adult Low Dose Aspirin) 81 mg PO DAILY atorvastatin 80 mg PO BEDTIME calcium carbonate-vitamin D3 500 mg-5 mcg (200 unit) 1 tab PO DAILY etanercept (Enbrel SureClick) 50 mg subcut QWEEK furosemide 20 mg PO DAILY levothyroxine (Synthroid) 100 mcg PO DAILY metoprolol tartrate 50 mg PO BID multivitamin 1 tab PO DAILY omeprazole 20 mg PO DAILY HPI Comments Details: 69 YO Female with PMHx rheumatoid arthritis is seen in consultation at the request of PCP for Osteoporosis. First diagnosed in just found out. . Never Received treatment in the past No history of pathologic fracture or ONJ. Has several servings of dietary calcium per day in the form of cheese, brocoli , cereal . Takes Calcium supplement 500 mg daily in divided doses. Takes 200 IU of Vitamin D daily. Takes PPI, -anticoagulant, -antiepileptic or +glucocorticoid medication rarely but was on it or yrs . 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 family history of Osteoporosis mom, sisters but no hip fracture. UTD on dental cleanings and sees dentist every 6 months. No planned upcoming de ntal work or extractions. DXA dated 03/16/24 :FINDINGS: LEFT FEMUR, NECK: Current: BMD 1.145 g/cm2, Z-score 2.0, T-score 0.8, normal. Prior: BMD 0.923 g/cm2. Baseline: BMD 0.751 g/cm2. LEFT FEMUR, TOTAL: Current: BMD 0.838 g/cm2, Z-score -0.4, T-score -1.3, osteopenia, 14.2% increase from previous, 21.3% increase from baseline (<5% change is not significant). Prior: BMD 0.734 g/cm2. Baseline: BMD 0.691 g/cm2. AP SPINE L1-L2 (excluding L3 and L4): The data of L1-L4 has been changed to exclude the L3 and L4 vertebral bodies, because significant degenerative change at these levels may cause overestimation of lumbar spine density. Current: BMD 1.037 g/cm2, Z-score 0.0, T-score -1.1, osteopenia, 5.1% increase from previous, 11.9% increase from baseline (<5% change is not significant). Prior: BMD 0.987 g/cm2. Baseline: BMD 0.927 g/cm2. IDENTIFIED RISK FACTORS: Menopause, rheumatoid arthritis. HISTORY OF FRACTURE: None listed. MEDICATIONS: Calcium, vitamin D. MM/XR DEXA axial skeleton IMPRESSION: 1. DIAGNOSIS: Osteopenia based on the lowest T-score value of -1.3 in the total femur applying World Health Organization criteria. 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 Seropositive rheumatoid arthritis Coronary arteriosclerosis Surgical History Hx of total knee replacement (06/22/22) Hx of bilateral cataract extraction Hx of colonoscopy History of back surgery Status post coronary artery bypass graft History of thyroid surgery Family History Mother HTN (hypertension) Social History Are you a primary patient care manager to a significant other at home: No Do you presently have visiting nurse or other home services: No Alcohol intake: current Alcohol intake frequency: holidays/special occasions only Alcohol type: wine Comment: bathroom only, aware of trip hazards Patient Tobacco Use Status: Former Tobacco user Tobacco use type: Cigarette Female Reproductive History Menstrual Age of Menarche: 12 Physical Exam Vital Signs: Last Vital Signs Pulse 69 07/30/24 10:00 BP 146/72 H 07/30/24 10:00 BMI result Body Mass Index 33.5 There are no Cushingoid features. Absence of blue sclera. Absence of kyphosis. Thyroid gland is of nl size and weighs 15 gms. There are no thyroid nodules palpated. Lungs CTA. Heart S1 S2 Reg R/R Abdominal exam benign. Muscle strength 5/5 . Examination of spine reveals absence of tenderness on palpation Assessment & Plan Assessment & Plan (1) Osteopenia: Code(s): M85.80 - Other specified disorders of bone density and structure, unspecified site Category: Medical Plan: This is a 69-year-old female with a history of low bone mass. We will rule out secondary causes Will complete secondary workup by checking serum phosphorus, 24 hour urine for calcium and creatinine. As well as 25 hydroxy vitamin-D. Will ensure 1200 mg of calcium and 2000 IU of vitamin D3and continue calcium vitamin D3 supplementation. Assuming secondary workup is negative, by bone density criteria, patient does not meet criteria for pharmacologic treatment. Using a bisphosphonate or Prolia would not increase bone quality but only anabolic agent which would probably not be covered by insurance considering the patient's presence of low bone mass not osteoporosis on bone density and lack fracture history. Patient should follow up with either the primary care provider or [facility] endocrinology who is managing her hypothyroidism regarding optimizing her levothyroxine replacement Orders: Orders Phosphorus Today M85.80 - Other specified disorders of bone density and structure, unspecified site Vitamin D 25-OH Total Today M85.80 - Other specified disorders of bone density and structure, unspecified site Creatinine, 24 Hr Group Today M85.80 - Other specified disorders of bone density and structure, unspecified site Calcium, 24 Hr Ur Today M85.80 - Other specified disorders of bone density and structure, unspecified site Coding Level of Care Code New Pt Level 4 (38772) Diagnoses Osteopenia M85.80
[2024-07-30 10:00] VITALS: BP 146/72; PULSE 69; BMI 33.5
--- OUTSIDE RECORDS SUMMARY | 2024-07-30 10:26 | XMS_ITS | Clinical Summary ---
Author Organization [employer] [facility] Address [address] [place] [address] [address] [place] [address] Care Team Providers Care Seedling Sorter Name Role Phone Unavailable Primary Care Provider [...] 03/01/2023, 01/29/2013, Additional history exists Pneumococcal Vaccine: 50+ Years (3 of 3 - PCV20 or PCV21) 03/04/2025 03/04/2020, 06/02/2018 Tobacco Screening 03/27/2025 03/27/2024 [...] Recently Relevant to Health Maintenance Insurance MEDICARE [facility] MEDICAID [facility] ADULT
--- OUTSIDE RECORDS SUMMARY | 2024-07-30 10:26 | XMS_ITS | Encounter Summary ---
Author Organization [employer] [facility] Address [address] [facility] [facility] [address] [place] [address] Care Team Providers Care Hide Grader Name Role Phone Unavailable Primary Care Provider Unavailabl e Encounter Details Date Type Department Care Team (Late st Contact Info) Description 03/01/2023 Abstract [facility] [address] [place] [address] Sunny Martin, KATHARINA [address] [place] [address] Social History Tobacco Use Types Packs/Day Years [...]
== END 2024-07-30 10:47 | disposition home or self-care (01) ==
PROVIDERS: PCP Internal Medicine; Visit Provider Internal Medicine Endocrinology, Diabetes & Metabolism
DX: M85.80 Other specified disorders of bone density and structure, unspecified site (principal)
CPT/HCPCS: 99204

== ENCOUNTER → 2024-07-30 09:54 | Outpatient (BNVA) | payer MEDICARE, MEDICAID, SELFPAY | PROVIDERS: PCP Internal Medicine; Visit Provider Internal Medicine Endocrinology, Diabetes & Metabolism | DX: M85.80 Other specified disorders of bone density and structure, unspecified site (principal) | CPT/HCPCS: 99202 ==

== ENCOUNTER 2024-10-04 10:36 | Outpatient (REF) | payer MEDICARE, MEDICAID, SELFPAY ==
[2024-10-04 10:40] LABS: MANUAL DIFF FLAG NO
[2024-10-04 10:58] LABS: Appearance Urine Clear; Color Urine Yellow; Glucose Urine UA Negative (Negative); Leukocyte Esterase Urine Trace (Negative); Nitrite Urine Negative (Negative); PH 6.5 (5.0-9.0); Specific Gravity - Urine 1.015 (1.005-1.025); UMIC TRIGGER UACC YES; Urine Blood Small (1+) (Negative); Urine Ketones Negative (Negative); Urine Protein Negative (Neg-Trace)
[2024-10-04 11:01] LABS: Basophils Absolute Auto 0.1 X10*3/uL (0.0-0.2); Basophils Percent Auto 1.1 % (0-2); Eosinophils Absolute Auto 0.2 X10*3/uL (0.0-0.4); Eosinophils Percent Auto 2.5 % (0-4); Hematocrit 42.6 % (37.0-47.0); Hemoglobin 14.4 g/dl (12.0-16.0); Imm Gran Abs Auto 0.02 X10*3/uL (0.00-0.03); Imm Gran Pct Auto 0.3 % (0.0-0.4); Lymphocytes Absolute Auto 2.8 X10*3/uL (1.2-4.9); Lymphocytes Percent Auto 42.8 % (20-40); Mean Corpuscular HGB Conc 33.8 g/dl (31.0-35.0); Mean Corpuscular Hemoglobin 27.3 pg (27.0-33.0); Mean Corpuscular Volume 80.8 fL (80.0-98.0); Mean Platelet Volume 11.1 fL (9.4-12.3); Monocytes Absolute Auto 0.6 X10*3/uL (0.1-1.2); Neutrophils Absolute Auto 2.9 x10*3/uL (2.0-8.3); Neutrophils Percent Auto 44.3 % (45-73); Platelet Count 242 X10*3/uL (160-400); Red Blood Count 5.27 X10*6/uL (4.20-5.50); Red Cell Distribution Width 13.2 % (11.0-16.0); White Blood Count 6.5 X10*3/uL (4.8-10.8)
[2024-10-04 11:02] LABS: Bacteria Urine 3+ (None Seen); Hyaline Casts Urine 0-2 /LPF (0-2); UACC Culture Trigger YES
[2024-10-04 11:10] LABS: Estimated Average Glucose 120 mg/dL; Hemoglobin A1C 148.8451 umol/L; Hemoglobin A1c % 5.8 % (<6.0); Total Hemoglobin (HGBA1C) 3778.0591 umol/L
[2024-10-04 11:27] LABS: Alanine Aminotransferase 14 U/L (0-31); Albumin Level 4.1 g/dL (3.5-5.0); Alkaline Phosphatase 129 U/L (39-117); Anion Gap 14 (12-20); Aspartate Amino Transferase 25 U/L (5-31); Bilirubin Total 0.6 mg/dL (0.0-1.0); Blood Urea Nitrogen 19 mg/dL (9-16); Calcium 9.3 mg/dL (8.4-10.2); Carbon Dioxide 26 mmol/L (22-29); Chloride 108 mmol/L (96-108); Cholesterol 92 mg/dL (<200); Estimated Glomerular Filt Rate > 60; Glucose Fasting 130 mg/dL (60-99); HDL Cholesterol 31 mg/dL (>40); LDL Cholesterol Calculated 41 mg/dL (<100); Potassium 3.9 mmol/L (3.3-5.1); Sodium 144 mmol/L (135-145); Total Protein 7.3 g/dL (6.5-8.0); Triglycerides 101 mg/dL (<150)
[2024-10-04 11:33] LABS: TSH reflex Free T4 0.34 uIU/mL (0.32-4.0)
[2024-10-04 11:45] LABS: Microalbum/Creatinine Ratio Ur 37.6 ug/mg cr (<30)
--- OUTSIDE RECORDS SUMMARY | 2024-10-04 12:34 | XMS_ITS | Patient Health Record ---
Author Organization Aaron Rob MD Address [address] [place] [id number] Care Team Providers Care Ur Coordinator Name Role Phone Aaron Rob Primary Care Provider [phone] Allergies No Known Allergies Results Component Value Reference Range Notes UA ClnCatch+Micro w/rflx Cul t Reviewed date:10/25/2023 07:32:44 AM Interpretation: Performing Lab:[facility], [address] [place] [phone] Notes/Report: Urine, Clean Catch Color Urine Yellow Appearance Urine Cloudy PH 6.5 5.0-9.0 Glucose Urine UA Negative Negative mg/dL Urine Blood Trace Negative Specific [place] - Urine 1.010 1.005-1.025 Urine Protein Negative Neg-Trace mg/dL Urine Ketones Negative Negative mg/dL Nitrite Urine Negative Negative Leukocyte Esterase Urine Large (3+) Negative RBC Urine 6-10 0-2 /HPF WBC Urine 11-20 0-5 /HPF Squamous Epithelial Cell Urine 11-20 0-2 /HPF Bacteria Urine 2+ None Seen Hyaline Casts Urine 0-2 0-2 /LPF UA ClnCatch+Micro w/rflx Cul t Reviewed date:11/12/2023 06:36:15 PM Interpretation: Performing Lab:[facility], [address] [place] [phone] Notes/Report: Urine, Clean Catch Color Urine Yellow Appearance Urine Clear PH 7.0 5.0-9.0 Glucose Urine UA Negative Negative mg/dL Urine Blood Negative Negative Specific [place] - Urine 1.015 1.005-1.025 Urine Protein Negative Neg-Trace mg/dL Urine Ketones Negative Negative mg/dL Nitrite Urine Negative Negative Leukocyte Esterase Urine Large (3+) Negative RBC Urine 0-2 0-2 /HPF WBC Urine 0-5 0-5 /HPF Squamous Epithelial Cell Urine 6-10 0-2 /HPF Bacteria Urine 1+ None Seen Hyaline Casts Urine 0-2 0-2 /LPF Liver Panel Reviewed date:06/04/2024 12:45:25 PM Interpretation: Performing Lab:[facility], [address] [place] [phone] Notes/Report: Bilirubin Total 0.9 0.0-1.0 mg/dL Bilirubin Direct 0.3 0.0-0.5 mg/dL Aspartate Amino Transferase 30 5-31 U/L Alanine Aminotransferase 16 0-31 U/L Total Protein 7.3 6.5-8.0 g/dL Albumin Level 4.0 3.5-5.0 g/dL Alkaline Phosphatase 122 39-117 U/L Glucose Fasting Reviewed date:06/04/2024 12:49:55 PM Interpretation: Performing Lab:[facility], [address] [place] [phone] Notes/Report: Glucose Fasting 109 60-99 mg/dL A fasting glucose from 100-125 mg/dl is considered impaired (pre-diabetes). Lipid Panel with Reflex Reviewed date:06/04/2024 12:45:35 PM Interpretation: Performing Lab:[facility], [address] [place] [phone] Notes/Report: Triglycerides 114 <150 mg/dL Desirable Triglyceride: [...] A1c Reviewed date:06/04/2024 12:44:41 PM Interpretation: Performing Lab:[facility], [address] [place] [phone] Notes/Report: Hemoglobin A1c % 5.3 <6.0 % [...] average glucose, using the formula of the D3F-Ubzdbyt Average Glucose study (ADAG), Diabetes Care, Vol.31,#8, 2007 Complete Blood Count Auto Di ff (Not yet reviewed by provider) Interpretation: Performing Lab:[facility], [address] [place] [phone] Notes/Report: White Blood Count 6.5 4.8-10.8 X10*3/uL Red Blood Count 5.27 4.20-5.50 X10*6/uL Hemoglobin 14.4 12.0-16.0 g/dl Hematocrit 42.6 37.0-47.0 % Mean Corpuscular Volume 80.8 80.0-98.0 fL Mean Corpuscular Hemoglobin 27.3 27.0-33.0 pg Mean Corpuscular HGB Conc 33.8 31.0-35.0 g/dl Red Cell Distribution Width 13.2 11.0-16.0 % Platelet Count 242 160-400 X10*3/uL Mean Platelet Volume 11.1 9.4-12.3 fL Neutrophils Percent Auto 44.3 45-73 % Imm Gran Pct Auto 0.3 0.0-0.4 % Lymphocytes Percent Auto 42.8 20-40 % Monocytes Percent Auto 9.0 2-11 % Eosinophils Percent Auto 2.5 0-4 % Basophils Percent Auto 1.1 0-2 % NRBC Pct Auto 0.0 0.0-0.2 /100WBC Neutrophils Absolute Auto 2.9 2.0-8.3 x10*3/u L Imm Gran Abs Auto 0.02 0.00-0.03 X10*3/uL Lymphocytes Absolute Auto 2.8 1.2-4.9 X10*3/u L Monocytes Absolute Auto 0.6 0.1-1.2 X10*3/uL Eosinophils Absolute Auto 0.2 0.0-0.4 X10*3/u L Basophils Absolute Auto 0.1 0.0-0.2 X10*3/uL NRBC Abs Auto 0.000 0.0-0.012 X10*3/uL Comprehensive [place]. Panel Fa st (Not yet reviewed by provider) Interpretation: Performing Lab:[facility], [address] [place] [phone] Notes/Report: Sodium 144 135-145 mmol/L Potassium 3.9 3.3-5.1 mmol/L Chloride 108 96-108 mmol/L Carbon Dioxide 26 22-29 mmol/L Anion Gap 14 12-20 Blood Urea Nitrogen 19 9-16 mg/dL Creatinine 0.61 0.5-1.4 mg/dL Estimated Glomerular Filt Rate > 60 Chronic Kidney Disease: Estimated GFR < 60 mL/min/1.73m2 Severe Kidney Disease: Estimated GFR < 15 mL/min/1.73m2 Glucose Fasting 130 60-99 mg/dL A fasting glucose of 126 mg/dl or greater on more than one occasion is considered diagnostic of diabetes. Calcium 9.3 8.4-10.2 mg/dL Bilirubin Total 0.6 0.0-1.0 mg/dL Aspartate Amino Transferase 25 5-31 U/L Alanine Aminotransferase 14 0-31 U/L Total Protein 7.3 6.5-8.0 g/dL Albumin Level 4.1 3.5-5.0 g/dL Alkaline Phosphatase 129 39-117 U/L Lipid Panel (Not yet reviewe d by provider) Interpretation: Performing Lab:[address] [phone] Notes/Report: Triglycerides 101 <150 mg/dL Desirable Triglyceride: less than 150 mg/dL Borderline High Triglyceride 150-199 mg/dL High Triglyceride: 200-499 mg/dL Very High Triglyceride: greater than or equal to 5OO mg/dL Cholesterol 92 <200 mg/dL Desirable Cholesterol: less than 200 mg/dL Borderline High Cholesterol: 200-239 mg/dL High Cholesterol: greater than 239 mg/dL LDL Cholesterol Calculated 41 <100 mg/dL Desirable LDL: less than 100 mg/dL Near Optimal/Above Optimal LDL: 110-129 mg/dL Borderline High LDL: 130-159 mg/dL High LDL: 160-189 mg/dL Very High LDL: greater than or equal to 190 mg/dL HDL Cholesterol 31 >40 mg/dL Desirable HDL: greater than 40 mg/dL Note: This HDL assay may give artificially low results in patients with liver disease. TSH reflex Free T4 (Not yet reviewed by provider) Interpretation: Performing Lab:[address] [phone] Notes/Report: TSH reflex Free T4 0.34 0.32-4.0 uIU/mL Microalbumin, Random (Not ye t reviewed by provider) Interpretation: Performing Lab:[facility], [address] [place] [phone] Notes/Report: Creatinine Urine 63.70 Microalbumin Urine 24.0 Microalbum/Creatinine Ratio Ur 37.6 <30 ug/mg cr Albumin/Creatinine Ratio Reference Ranges: Normal: < 30 ug/mg creatinine Microalbuminuria: 30 - 300 ug/mg creatinine Clinical Albuminuria: > 300 ug/mg creatinine Hemoglobin A1c (Not yet revi ewed by provider) Interpretation: Performing Lab:[address] [phone] Notes/Report: Hemoglobin A1c % 5.8 <6.0 % Hemoglobin A1C Reference Range Adults: 4.8 - 6.0 % Non diabetic: < 6.0 % Goal: < 7.0 % Additional Action Suggested: > 8.0 % Note: Hemoglobin A1c results are invalid for patients with abnormal amounts of HbF. Blood transfusions may impact the HbA1c concentration in the patient sample. Estimated Average Glucose 120 eAG = Estimated average glucose which is %A1C expressed as average glucose, using the formula of the F2D-Dwdmyza Average Glucose study (ADAG), Diabetes Care, Vol.31,#8, 2007 UA ClnCatch+Micro w/rflx Cul t (Not yet reviewed by provider) Interpretation: Performing Lab:[address] [phone] Notes/Report: Urine, Clean Catch Color Urine Yellow Appearance Urine Clear PH 6.5 5.0-9.0 Glucose Urine UA Negative Negative mg/dL Urine Blood Small (1+) Negative Specific [place] - Urine 1.015 1.005-1.025 Urine Protein Negative Neg-Trace mg/dL Urine Ketones Negative Negative mg/dL Nitrite Urine Negative Negative Leukocyte Esterase Urine Trace Negative RBC Urine 11-20 0-2 /HPF WBC Urine 6-10 0-5 /HPF Squamous Epithelial Cell Urine 6-10 0-2 /HPF Bacteria Urine 3+ None Seen Hyaline Casts Urine 0-2 0-2 /LPF TSH reflex Free T4 Reviewed date:07/06/2024 05:11:26 PM Interpretation: Performing Lab:[address] [phone] Notes/Report: TSH reflex Free T4 0.16 0.32-4.0 uIU/mL Occult Blood, Stool, Guaiac Reviewed date:10/27/2023 02:15:06 PM Interpretation:Negative Performing Lab: Notes/Report: Negative Occult Blood, Stool, Guaiac Neg Urine Culture Reviewed date:10/25/2023 11:19:20 AM Interpretation: Performing Lab:[address] [phone] Notes/Report: Urine Culture Report Result Urine Culture < 10,000 cfu/ml Urine Culture Reviewed date:11/12/2023 06:27:53 PM Interpretation: Performing Lab:[address] [phone] Notes/Report: Urine Culture Report Result Urine Culture 10,000 to 50,000 cfu/ml Urine Culture Mixed bacterial herson a characteristic of Urine Culture urogenital contamination. Complete Blood Count Auto Di ff Reviewed date:01/23/2024 12:45:16 PM Interpretation: Performing Lab:[facility], [address] [place] [phone] Notes/Report: White Blood Count 6.1 4.8-10.8 X10*3/uL [...] te Reviewed date:01/23/2024 12:09:33 PM Interpretation: Performing Lab:[facility], [address] [place] [phone] Notes/Report: Erythrocyte Sedimentation Rate 2 0-20 MM/HR Patients with polycythemia and many hemoglobin abnormalities may have depressed sed rates whereas patients with anemia may have elevated sed rates. Comprehensive Met. Panel Reviewed date:01/23/2024 12:12:34 PM Interpretation: Performing Lab:[facility], [address] [place] [phone] Notes/Report: Sodium 141 135-145 mmol/L Potassium 4.0 3.3-5.1 mmol/L Chloride 110 96-108 mmol/L Carbon Dioxide 22 22-29 mmol/L Anion Gap 13 12-20 Blood Urea Nitrogen 20 9-16 mg/dL Creatinine 0.67 0.5-1.4 mg/dL Estimated Glomerular Filt Rate > 60 NOTE: For -Cymraes individuals, multiply the result by 1.210. Chronic [...] Protein Reviewed date:01/23/2024 12:09:42 PM Interpretation: Performing Lab:[facility], [address] [place] [phone] Notes/Report: C Reactive Protein 0.22 < or = 0.50 mg/dL XR knee LT 3V Reviewed date:04/27/2024 05:15:34 PM Interpretation: Performing Lab: Notes/Report: [address] [address] XRay Report Signed Patient: Selene Barry MR#: [id number] 3611 : 1955 Acct:[id number] Age/Sex: 68 / F ADM Date: 02/03/24 Loc: CARM[facility] Attending Dr: Kasey LUKE Ordering Physician: Kasey Wesley Date of Service: 02/03/24 Procedure(s): XR knee LT 3V Accession Number(s): [id number] cc: Aaron Rob MD; Kasey Wesley EXAMINATION: [...] 04/27/24 1138 DD/ 0954 TD/TT: 02/03/24 1022 [employer] Supervisor: [place] [address] XRay Report Signed Patient: Selene Barry MR#: [id number] 3611 : 1955 Acct:[id number] Age/Sex: 68 / F ADM Date: 02/03/24 Loc: CARM[facility] Attending Dr: Kasey LUKE Ordering Physician: Kasey Wesley Date of Service: 02/03/24 Procedure(s): XR kne e LT 3V Accession Number(s): [id number] cc: Aaron Rob MD; Kasey Wesley EXAMINATION: [...] 11:38 AM EDT RP Dictated By: Mac Joya Signed By: <Electronically signed by Mac Arce in OV> 04/27/24 1138 DD/ 0954 TD/TT: 02/03/24 1022 [employer] Supervisor: XR foot LT min 3V Reviewed date:04/27/2024 11:59:11 AM Interpretation: Performing Lab: Notes/Report: [address] [address] XRay Report Signed Patient: Selene Barry MR#: [id number] 3611 : 1955 Acct:[id number] Age/Sex: 68 / F ADM Date: 02/03/24 Loc: CARM[facility] Attending Dr: Kasey LUKE Ordering Physician: Kasey Wesley Date of Service: 02/03/24 Procedure(s): XR foot LT min 3V Accession Number(s): [id number] cc: Aaron Rob MD; Kasey Wesley EXAMINATION: [...] 04/27/24 1045 DD/ 0954 TD/TT: 02/03/24 1022 [employer] Supervisor: [address] [address] XRay Report Signed Patient: Selene Barry MR#: [id number] 3611 : 1955 Acct:[id number] Age/Sex: 68 / F ADM Date: 02/03/24 Loc: CARM[facility] Attending Dr: Kasey LUKE Ordering Physician: Kasey Wesley Date of Service: 02/03/24 Procedure(s): XR sea t LT min 3V Accession Number(s): [id number] cc: Aaron Rob MD; Kasey Wesley EXAMINATION: [...] 10:45 AM EDT RP Dictated By: Mac Richmond Signed By: <Electronically signed by Mac Arce in OV> 04/27/24 1045 DD/ 0954 TD/TT: 02/03/24 1022 [employer]visor: XR lumbar spine 4V min Reviewed date:04/11/2024 06:48:51 PM Interpretation: Performing Lab: Notes/Report: [address] [address] XRay Report Signed Patient: Selene Barry MR#: [id number] 3611 : 1955 Acct:[id number] Age/Sex: 68 / F ADM Date: 02/03/24 Loc: CARM[facility] Attending Dr: Kasey LUKE Ordering Physician: Kasey Wesley Date of Service: 02/03/24 Procedure(s): XR lumbar spine 4V min Accession Number(s): [id number] cc: Aaron Rob MD; Kasey Wesley EXAMINATION: [...] 04/09/24 0840 DD/ 0954 TD/TT: 02/03/24 1022 [employer] Supervisor: [address] [address] XRay Report Signed Patient: Selene Barry MR#: [id number] 3611 : 1955 Acct:[id number] Age/Sex: 68 / F ADM Date: 02/03/24 Loc: CARM[facility] Attending Dr: Kasey Wesley 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 There is mild vacuum spindle sander ior disc space narrowing at T12-L1 and [...] MD 04/09/2024 08:40 AM EDT Dictated By: Ismael Martínez MD Signed By: <Electronically signed by Jos Martínez MD in OV> 04/09/24 0840 DD/ 0954 TD/TT: 02/03/24 1022 [employer] Supervisor: RONALD SAUCEDA lumbar spine wo con Reviewed date:03/15/2024 12:30:31 PM Interpretation: Performing Lab: Notes/Report: [address] [address] Magnetic Resonance Report Signed Patient: Selene Barry MR#: [id number] 3611 : 1955 Acct:[id number] Age/Sex: 68 / F ADM Date: 03/14/24 Loc: HO.MRI Attending Dr: Kasey LUKE Ordering Physician: Kasey Wesley Date of Service: 03/14/24 Procedure(s): MR lumbar spine wo con Accession Number(s): [id number] cc: Aaron Rob MD; Kasey Wesley EXAMINATION: [...] OV> 03/15/24 1001 DD/ 10 TD/TT: 03/14/242027 [employer] Supervisor: [address] [address] Magnetic Resonance Report Signed Patient: Selene Barry MR#: [id number] 3611 : 1955 Acct:[id number] Age/Sex: 68 / F ADM Date: 03/14/24 Loc: HO.MRI Attending Dr: Kasey LUKE Ordering Physician: Kasey Wesley Date of Service: 03/14/24 Procedure(s): MR lum bar spine wo con Accession Number(s): [id number] cc: Aaron Rob MD; Kasey Wesley EXAMINATION: [...] OV> 03/15/24 1001 DD/ 10 TD/TT: 03/14/242027 [employer] Supervisor: MARIA ISABEL MM tomosynthesis screening B I Reviewed date:03/28/2024 03:56:48 PM Interpretation: Performing Lab: Notes/Report: [facility] [address] [place] [address] Mammography Report Signed Patient: Selene Barry MR#: [id number] 3611 : 1955 Acct:[id number] Age/Sex: 68 / F ADM Date: 03/16/24 Loc: SHOAIB Attending Dr: Power Becker MD Ordering Physician: Power Becker MD Results: 1Negativ e Date of Service: 03/16/24 Follow Up: 1 Year From Orig inal Mammogram Procedure(s): MM tomosynthesis screening BI Accession Number(s): [id number] cc: Aaron Rob MD; Power Becker MD [...] Tonia Viera DO 03/28/2024 11:59 AM EDT RP Dictated By: Tonia Viera DO Signed By: <Electronically signed by Tonia Viera DO in OV> 03/28/24 1159 DD/ 0830 TD/TT: 03/16/24 0840 [employer]visor: [place] [facility]'s [address] [place] [address] Mammography Report Signed Patient: Selene Barry MR#: [id number] 3611 : 1955 Acct:[id number] Age/Sex: 68 / F ADM Date: 03/16/24 Loc: HO.MAMMO Attending Dr: Power Becker MD Ordering Physician: Power Becker MD Results: 1Negativ e Date of Service: 03/16/24 Follow Up: 1 Year From Orig ina Mammogram Procedure(s): MM tomosynthesis screening BI Accession Number(s): [id number] cc: Aaron Rob MD; Power Becker MD [...] Tonia Viera DO 03/28/2024 11:59 AM EDT RP Dictated By: Tonia Viera DO Signed By: <Electronically signed by Tonia Viera DO in OV> 03/28/24 1159 DD/ 0830 TD/TT: 03/16/24 0840 [employer]visor: XR DEXA axial skeleton Reviewed date:04/03/2024 02:11:53 PM Interpretation: Performing Lab: Notes/Report: [facility]'[address] [place] [address] Mammography Report Signed Patient: Selene Barry MR#: [id number] 3611 : 1955 Acct:[id number] Age/Sex: 68 / F ADM Date: 03/16/24 Loc: HO.MAMMO Attending Dr: Power Becker MD Ordering Physician: Power Becker MD Results: Date of Service: 03/16/24 Follow Up: Procedure(s): XR DEXA axial skeleton Accession Number(s): [id number] cc: Aaron Rob MD; Power Becker MD EXAMINATION: BONE DENSITOMETRY CLINICAL INDICATION: Menopause. COMPARISON: Previous BD dated 10/09/2021 and baseline BD dated 10/05/2016. TECHNIQUE: Using a [employer]Sim DXA System (software version: 13.1) manufactured by [employer], dual-energy x-ray absorptiometry was performed of the [...] OV> 04/03/24 0839 DD/ 0845 TD/TT: 03/16/24 0900 [employer] Supervisor: ABUNDIO [place] [facility]'s [address] [place] [address] Mammography Report Signed Patient: Selene Barry MR#: [id number] 3611 : 1955 Acct:[id number] Age/Sex: 68 / F ADM Date: 03/16/24 Loc: HO.MAMMO Attending Dr: Power Becker MD Ordering Physician: Power Becker MD Results: Date of Service: 03/16/24 Follow Up: Procedure(s): XR DEX A axial skeleton Accession Number(s): [id number] cc: Aaron Rob MD; Power Becker MD EXAMINATION: BONE DENSITOMETRY CLINICAL INDICATION: Menopause. COMPARISON: Previous BD dated 10/09/2021 and baseline BD dated 10/05/2016. TECHNIQUE: Using a [employer] DXA System (software version: 13.1) manufactured b [employer], dual-energy x-ray absorptiometry was performed of the [...] OV> 04/03/24 0839 DD/ 0845 TD/TT: 03/16/24 0900 [employer] Supervisor: MR thoracic spine wo con Reviewed date:04/04/2024 06:26:06 PM Interpretation: Performing Lab: Notes/Report: [address] [address] Magnetic Resonance Report Signed Patient: Selene Barry MR#: [id number] 3611 : 1955 Acct:[id number] Age/Sex: 68 / F ADM Date: 04/02/24 Loc: HO.MRI Attending Dr: Osmel MARADIAGA Ordering Physician: Osmel Mckoy Date of Service: 04/02/24 Procedure(s): MR thoracic spine wo con Accession Number(s): [id number] cc: Aaron Rob MD; Osmel Mckoy EXAMINATION: [...] OV> 04/03/24 1509 DD/ 1830 TD/TT: 04/02/24 185 [employer] Supervisor: [address] [address] Magnetic Resonance Report Signed Patient: Selene Barry MR#: [id number] 3611 : 1955 Acct:[id number] Age/Sex: 68 / F ADM Date: 04/02/24 Loc: HO.MRI Attending Dr: Osmel MARADIAGA Ordering Physician: Osmel Mckoy Date of Service: 04/02/24 Procedure(s): MR thoracic spine wo con Accession Number(s): [id number] cc: Aaron Rob MD; Osmel Mckoy EXAMINATION: [...] 04/03/24 1509 DD/ 1830 TD/TT: 04/02/24 1855 [employer] Supervisor: Complete Blood Count Auto Sanna ff Reviewed date:05/03/2024 12:29:13 PM Interpretation: Performing Lab:[facility], [address] [place] [phone] Notes/Report: White Blood Count 6.5 4.8-10.8 X10*3/uL [...] te Reviewed date:05/03/2024 12:46:33 PM Interpretation: Performing Lab:[facility], [address] [place] [phone] Notes/Report: Erythrocyte Sedimentation Rate 5 0-20 MM/HR Patients with polycythemia and many hemoglobin abnormalities may have depressed sed rates whereas patients with anemia may have elevated sed rates. Comprehensive Met. Panel Reviewed date:05/03/2024 12:46:22 PM Interpretation: Performing Lab:[facility], [address] [place] [phone] Notes/Report: Sodium 141 135-145 mmol/L Potassium 4.5 3.3-5.1 mmol/L Slight Hemolysis.Interpret result with caution. Chloride 108 96-108 mmol/L Carbon Dioxide 21 22-29 mmol/L Anion Gap 17 12-20 Blood Urea Nitrogen 15 9-16 mg/dL Creatinine 0.60 0.5-1.4 mg/dL Estimated Glomerular Filt Rate > 60 NOTE: For -Cymraes individuals, multiply the result by 1.210. Chronic [...] Protein Reviewed date:05/03/2024 12:28:49 PM Interpretation: Performing Lab:[facility], [address] [place] [phone] Notes/Report: C Reactive Protein 0.61 < or = 0.50 mg/dL Hepatitis A,B,C Profile Reviewed date:05/03/2024 12:28:29 PM Interpretation: Performing Lab:[facility], [address] [place] [phone] Notes/Report: Hepatitis A Antibody IgM Nonreactive Nonreactive [...] TB Reviewed date:05/06/2024 12:59:20 PM Interpretation: Performing Lab:[facility], [address] [place] [phone] Notes/Report: TSpotTB Negative Negative A negative test [...] Passed For additional information, please refer to http://education.[employer]/fa q/JZJ289 (This link is being provided for informational/ educational purposes only.) THIS TEST WAS PERFORMED AT: [facility]/[address] [address] RACHELL OLIVAREZ MD,PHD CT lumbar spine wo con Reviewed date:07/23/2024 05:20:34 PM Interpretation: Performing Lab: Notes/Report: [address] [address] [address] Scan Report Signed Patient: Selene Barry MR#: [id number] 3611 : 1955 Acct:[id number] Age/Sex: 69 / F ADM Date: 05/11/24 Loc: HO.CT Attending Dr: Osmel MARADIAGA Ordering Physician: Osmel Mckoy Date of Service: 05/11/24 Procedure(s): CT lumbar spine wo IV con Accession Number(s): [id number] cc: Aaron Rob MD; Osmel Mckoy Report Number: [id number]: Total DLP = 681.00 mGy-cm EXAMINATION: CT [...] 07/23/24 0441 DD/ 1318 TD/TT: 05/11/24 1345 [employer] Supervisor: [place] [address] CT Scan Report Signed Patient: Selene Barry MR#: [id number] 3611 : 1955 Acct:[id number] Age/Sex: 69 / F ADM Date: 05/11/24 Loc: HO.CT Attending Dr: Osmel MARADIAGA Ordering Physician: Osmel Mckoy Date of Service: 05/11/24 Procedure(s): CT lum bar spine wo IV con Accession Number(s): [id number] cc: Aaron Rob MD; Osmel Mckoy Report Number: [id number]: Total DLP = 681.00 mGy-cm EXAMINATION: CT [...] of S1. 1. No evidence of ac [place] fracture or traumatic subluxation of the [...] 07/23/24 0441 DD/ 1318 TD/TT: 05/11/24 1345 [employer] Supervisor: KYAW Monsivais Reviewed date:06/04/2024 12:48:56 PM Interpretation: Performing Lab:[facility], [address] [place] [phone] Notes/Report: Afshan Monsivais See Note Specimen held untested for 24 hours; Call to request Chemistry testing. XR chest 2V Reviewed date:07/06/2024 12:50:13 PM Interpretation:BRINDA 07/06/24 Performing Lab: Notes/Report: [address] [address] XRay Report Signed Patient: Selene Barry MR#: [id number] 3611 : 1955 Acct:[id number] Age/Sex: 69 / F ADM Date: 06/29/24 Loc: CARMEL Attending Dr: Aaron Rob MD Ordering Physician: Aaron Rob MD Date of Service: 06/29/24 Procedure(s): XR chest 2V Accession Number(s): [id number] cc: Aaron Rob MD CLINICAL HISTORY: Acute [...] signed by Leon Grajeda MD in OV> 07/02/241054 DD/ 54 TD/TT: 07/02/241054 [employer] Supervisor: [place] [address] XRay Report Signed Patient: Selene Barry MR#: [id number] 3611 : 1955 Acct:[id number] Age/Sex: 69 / F ADM Date: 06/29/24 Loc: HO.RAMONAAY Attending Dr: Aaron Rob MD Ordering Physician: Aaron Rob MD Date of Service: 06/29/24 Procedure(s): XR tigist st 2V Accession Number(s): [id number] cc: Aaron Rob MD CLINICAL HISTORY: Ac [place] URI Chest two views Comparison: None Findings: Interstitial promine nce of uncertain chronicity. No venous distention or overt pulmonary pilo a. No consolidation or pleural effusion. Upper [...] OV> 07/02/24 105 DD/ 54 TD/TT: 07/02/241054 [employer] Supervisor: Free T4 (Free Thyroxine) Reviewed date:07/06/2024 05:11:14 PM Interpretation: Performing Lab:[facility], [address] [place] [phone] Notes/Report: Free T4 (Free Thyroxine) 1.31 0.71-1.85 ng/dL Afshan Loi Reviewed date:07/06/2024 01:24:48 PM Interpretation: Performing Lab:[facility], [address] [place] [phone] Notes/Report: Hold Loi See Note Specimen held untested for 24 hours; Call to request Chemistry testing. Hold Gold (Not yet reviewed by provider) Interpretation: Performing Lab:[facility], [address] [place] [phone] Notes/Report: Hold Gold See Note Specimen held untested for 24 hours; Call to request Chemistry testing. Reason For Referral Reason osteoporosis Diagnosis 1 Age-related osteopor osis without current pathological fracture (M81.0) Referral Organization Aaron Rob MD Referring Provider First Name Aaron Referring Provider Last Name Darron Referring Provider Speciality Internal M edicine Referred Provider Angelo Andrew Referred Provider Specialty Endocrinolog y General Notes Ursula Tracy 0 07/26/2024 03:26:47 PM >info faxed with [facility] spine Center office note Referral Priority Routine Referral Appointment Date 07/30/2024 Medications Medication SIG (Take, Route, Frequency, Duration) [...] 20 MG Take 1 capsule by [facility] once daily for 90 Active Estradiol 0.1 [...] W/U Status Risk Notes Problem Hypercoagulable state (23665356) Secondary hypercoagulable state (289.82) Active confirmed Problem Spinal stenosis (50841171) Spinal stenosis (724.00) Active confirmed Problem 70178000 Age-related osteoporosis without current pathological fracture (M81.0) Active confirmed Problem 964753167 Thyroid nodule (E04.1) Active confirm ed Problem 62850963 Lymphocytosis (D72.820) Active confirmed Problem 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) Active confirmed Problem 10388401 Lumbar disc dise ase (M51.9) Active confirmed Problem 43363744 Essential hypert ension (I10) Active confirmed Problem 545113487 Mild intermitten t asthma without complication (J45.20) Active confirmed Problem 0193556 Prediabetes (R73.09) Active confirmed Problem 837184312 Chronic systolic congestive heart failure (I50.22) Active confirmed Problem 62240535 Hyperthyroidism (E05.90) Active confirmed Problem 419026382 Rheumatoid arthr itis involving multiple sites, 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) Active confirmed Problem 375708718 Graves disease (E05.00) Active confirmed Problem 163318420 History of coron marie artery bypass graft (Z95.1) Active confirmed Problem 3457242 Thyromegaly (E04.9) Active confirmed Problem 470031334 Non-rheumatic mi tral regurgitation (I34.0) Active confirmed Problem 246074653 Thyroid cancer (C73) Active confirmed Problem 355758358 Vaginal bleeding (N93.9) Active confirmed Problem 43871082 Sciatica of righ t side (M54.31) Active confirmed Problem 65700595 Hypercholesterol emia (E78.00) Active confirmed Problem 4552528296517 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) Active confirmed Problem 754488615 Atrophy of vagin a (N95.2) Active confirmed Problem 570074579 Vaginal prolapse (N81.10) Active confirmed Vital Signs Blood pressure diastolic 60 mm Hg 07/06/2024 Height 63.5 in 07/06/2024 Blood pressure systolic 148 mm Hg 07/06/2024 Weight 189 lbs 07/06/2024 BMI 32.95 kg/m2 07/06/2024 Encounters Encounter Location Date Provider Diagnosis Aaron Rob MD [address] [place] [address] [id number] 10/24/2023 Aaron Rob Hematuria R31.9 Aaron Rob MD [address] [place] [address] [id number] 11/11/2023 Aaron Rob Hematuria, unspecifi ed type R31.9 Aaron Rob MD [address] [place] [address] [id number] 06/04/2024 Aaron Rob Prediabetes R73.09 a nd Hypercholesterolemia E78.00 Aaron Rob MD [address] [place] [address] [id number] 10/04/2024 Aaron Rob Essential hypertensi on I10 ; Prediabetes R73.09 ; Lymphocytosis D72.820 ; Chronic systolic congestive heart failure I50.22 ; Hyperthyroidism E05.90 and Hypercholesterolemia E78.00 Aaron Rob MD [address] [place] [address] [id number] 10/11/2023 Aaron Rob Microscopic hematuri a R31.29 ; Atrophy of vagina N95.2 ; Essential hypertension I10 ; Hyperthyroidism E05.90 ; Prediabetes R73.09 ; Mild intermittent asthma without complication J45.20 ; Chronic systolic congestive heart failure I50.22 ; Hypercholesterolemia E78.00 and Depression screening Z13.31 Aaron Rob MD [address] [place] [address] [id number] 04/16/2024 Aaron Rob Encounter for administration of vaccine Z23 Aaron Rob MD [address] [place] [address] [id number] 06/11/2024 Aaron Rob Vaginal prolapse N81 .10 ; Essential hypertension I10 and Rheumatoid arthritis involving multiple sites, unspecified rheumatoid factor presence M06.9 Aaron Rob MD [address] [place] [address] [id number] 06/21/2024 Aaron Rob Mild intermittent as thma without complication J45.20 Aaron Rob MD [address] [place] [address] [id number] 06/29/2024 Aaron Rob Acute URI J06.9 Aaron Rob MD [address] [place] [address] [id number] 07/06/2024 Aaron Rob Mild intermittent as thma without complication J45.20 ; Hyperthyroidism E05.90 and Pneumonitis, interstitial J84.89 Aaron Rob MD 10 [facility] [address] [place], [place] [id number] 10/24/2023 Aaron Rob Colon cancer screeni ng Z12.11 Assessments Encounter Date Diagnosis (ICD Code) Assessment Notes Treatment Notes Treatment Clinical Notes Section Notes 11/11/2023 Hematuria, unspecifi ed type (ICD-10 - R31.9) 06/04/2024 Prediabetes (ICD-10 - R73.09) 06/04/2024 Hypercholesterolemia (ICD-10 - E78.00) 10/04/2024 Essential hypertensi on (ICD-10 - I10) 10/11/2023 Microscopic hematuri a (ICD-10 - R31.29) [...] J06.9) THE XRAY ORDER WAS FAXED TO [facility] PATIENT REG. PATIENT [...] Colon cancer screeni ng (ICD-10 - Z12.11) 10/24/2023 Hematuria (ICD-10 - R31.9) 10/04/2024 Prediabetes (ICD-10 - R73.09) 10/11/2023 Essential hypertensi on (ICD-10 - I10) well controlled, will continue current regiment and will continue to monitor 06/11/2024 Essential hypertensi on (ICD-10 - I10) running a little highwill continue current regiment and will contiue to monitor 07/06/2024 Pneumonitis, interstitial (ICD-10 - J84.89) will contiue to monitor , pending future chest xray 10/04/2024 Lymphocytosis (ICD-1 0 - D72.820) 10/11/2023 Hyperthyroidism (ICD -10 - E05.90) doing well, will continue current regiment 06/11/2024 Rheumatoid arthritis involving multiple sites, unspecified rheumatoid factor presence (ICD-10 - M06.9) doing better on embrel, will continue current regiment 10/04/2024 Chronic systolic congestive heart failure (ICD-10 - I50.22) 10/11/2023 Prediabetes (ICD-10 - R73.09) stable, no need for medication at this time 10/04/2024 Hyperthyroidism (ICD -10 - E05.90) 10/11/2023 Mild intermittent asthma without complication (ICD-10 - J45.20) stable, will continue current regiment 10/04/2024 Hypercholesterolemia (ICD-10 - E78.00) 10/11/2023 Chronic systolic congestive heart failure (ICD-10 [...] & LAT 06/29/2024 BONE DENSITY DEXA 07/03/2021 Complete Blood Count Auto Diff Comprehensive [place]. Panel Fast Lipid Panel 10/04/2024 TSH reflex Free T4 10/04/2024 Microalbumin, Random 10/04/2024 Hold Gold 10/04/2024 Hemoglobin A1c 10/04/2024 UA ClnCatch+Micro w/rflx Cult 10/04/2024 Future Test Test Name Order Date XR CHEST 2 VIEW PA & LAT 08/03/2024 Next Appt Details Provider Name:Aaron Atkinson ier, 10/11/2024 11:00:00 AM, [address], [address], [place], [place], [id number], Insurance Providers Payer Name Payer Address Payer Phone Subscriber Number Group Number Insured Name Patient Relationship to Insured Coverage Start Date Coverage End Date [employer] [address] [place] [address] [id number] Selene Valdovinos Self - patient is the insured [address] [address] [id number] Christiano Selene pham Self - patient is the insured Medical (General) History Medical History History ICD Code colonoscopy - 03/2008 hyperp lastic polyp due 03/[address] Lan; Colonoscopy done 07/14/[address] Lan - repeat 10 years BURR[facility] HAND appt 06/04/13 at [facility] hematuria w/u 2017 08/21/2019 Total Thyroidectomy Pulmonary nodule R91.1 nodule evaluated and no need for further eval 2017 Surgical History Surgery Date(Month/Year) L3-4, L4-5 Decompression 03/2014 Total Thyroidectomy 07/2019
--- OUTSIDE RECORDS SUMMARY | 2024-10-04 12:34 | XMS_ITS ---
Author Organization Aaron Rob MD Address [address] [facility] [address] [place] [phone] Care Team Providers Care Night Order Selector Name Role Phone Aaron Rob Primary Care Provider [phone] REASON FOR VISIT 4 week follow up Encounters Encounter Location Date Provider Diagnosis Aaron Rob MD [address] [place] [address] [place] [id number] 08/10/2024 Aaron Rob Plan Of Treatment Next Appt Details Provider Name:Aaron deleon, 10/11/2024 11:00:00 AM, [address] [place] [address], [address], [phone], Progress Notes * Selene BARRYDOB: [birth year] (69 yo F)Acc No.[id number]:08/10/2024 Progress Note Patient:?Selene BARRY Provider:?Aaron Rob MD :1955???Age:69 Y???Sex:Female D ate:08/10/2024 Address:[address] [place], [place] [id number] Subjective: * Chief Complaints: * ???1. 4 week follow up. * Medical History:? Objective: * Vitals:? Assessment: Plan: * Treatment: * * The named appointment provid er may or may not be the originator of this progress note, and it is not deemed complete until electronically signed by the appointment provider. Sign off status: Pending * Provider:?Aaron Rob MD Date:?0 08/10/2024 Generated for Julius pittman/Fito/Dionnaitting on:?10/04/2024 12:33 PM EDT
--- OUTSIDE RECORDS SUMMARY | 2024-10-04 12:34 | XMS_ITS | Clinical Summary ---
Author Organization [employer] [facility] Address [address] [place] [address] [address] [place] [address] Care Team Providers Care Harbormaster Name Role Phone Unavailable Primary Care Provider [...] ESTABLISHED PATIENT Routine 03/27/2024 9:00 AM EDT INTRAORAL - COMPLETE SERIES OF RADIOGRAPHIC IMAGES Routine 02/07/2023 8:00 AM EDT from Last 3 Months or Most Recently Relevant to Health Maintenance Insurance [facility]ICARE [facility] MEDICAID [facility] ADULT
--- OUTSIDE RECORDS SUMMARY | 2024-10-04 12:34 | XMS_ITS | Encounter Summary ---
Author Organization [facility] Address [address] [facility] 7t [place] [address] Care Team Providers Care Education Officer Name Role Phone Unavailable Primary Care Provider Unavailabl e Encounter Details Date Type Department Care Team (Late st Contact Info) Description 03/01/2023 Abstract [facility] [address] [place] [address] Sunny Martin, KATHARINA [address] [place] [address] Social History Tobacco Use Types Packs/Day Years [...]
--- OUTSIDE RECORDS SUMMARY | 2024-10-04 12:34 | XMS_ITS ---
Author Organization Aaron Rob MD Address [address] [place] [phone] Care Team Providers Care Instructional Design Specialist Name Role Phone Aaron Rob Primary Care Provider Allergies No Known Allergies Results Component Value Reference Range Notes TSH reflex Free T4 Reviewed date:07/06/2024 05:11:26 PM Interpretation: Performing Lab:[facility], [address] [place] [phone] Notes/Report: TSH reflex Free T4 0.16 0.32-4.0 [...] Omeprazole 20 MG Take 1 capsule by [facility] once daily for 90 Active Albuterol Sulfate [...] Location Date Provider Diagnosis Aaron Rob MD [address] [place] [address] [address] [place], [place] [phone] 07/06/2024 Aaron Rob Mild intermittent asthma without [...] Follow Up: 4 Weeks, Reason: Provider Name:Aaron deleon, 10/11/2024 11:00:00 AM, [address], [address], [place], [place], [phone], Progress Notes * Selene BARRYDOB: [birth year] (69 yo F)Acc No.[id number]:07/06/2024 Patient:?Jhonny Selene Provider:?Aaron Rob MD :1955???Age:69 Y???Sex:Female D ate:07/06/2024 Address:[address] [place], [place] [phone] Subjective: * Chief Complaints: * ???REVIEW CHEST [...] , pending future chest xray?? * Procedure Codes:?41756 VENIP UNCT, ROUTINE* * Follow Up:?4 Weeks * * Sign off status: Completed true * Provider:?Aaron Rob MD Date:?0 07/06/2024 Generated for Julius pittman/Fito/eTransmitting on:?10/04/2024 12:33 PM EDT History and Physical Notes * HPI (History [...]
--- OUTSIDE RECORDS SUMMARY | 2024-10-04 12:34 | XMS_ITS ---
Author Organization Aaron Rob MD Address [address] [place] [phone] Care Team Providers Care Senior Maintenance Machinist Name Role Phone Aaron Rob Primary Care Provider Results Component Value Reference Range Notes Complete Blood Count Auto Di ff (Not yet reviewed by provider) Interpretation: Performing Lab:[facility], [address] [place] [phone] Notes/Report: White Blood Count 6.5 4.8-10.8 X10*3/uL [...] NRBC Abs Auto 0.000 0.0-0.012 X10*3/uL Comprehensive [place]. Panel Fa st (Not yet reviewed by provider) Interpretation: Performing Lab:[facility], [address] [place] [phone] Notes/Report: Sodium 144 135-145 mmol/L Potassium 3.9 [...] yet reviewe d by provider) Interpretation: Performing Lab:[address] [phone] Notes/Report: Triglycerides 101 <150 mg/dL Desirable Triglyceride: [...] (Not yet reviewed by provider) Interpretation: Performing Lab:[address] [phone] Notes/Report: TSH reflex Free T4 0.34 0.32-4.0 uIU/mL Microalbumin, Random (Not ye t reviewed by provider) Interpretation: Performing Lab:[address] [phone] Notes/Report: Creatinine Urine 63.70 Microalbumin Urine 24.0 Microalbum/Creatinine Ratio Ur 37.6 <30 ug/mg cr Albumin/Creatinine Ratio Reference Ranges: Normal: < 30 ug/mg creatinine Microalbuminuria: 30 - 300 ug/mg creatinine Clinical Albuminuria: > 300 ug/mg creatinine Hemoglobin A1c (Not yet revi ewed by provider) Interpretation: Performing Lab:[address] [phone] Notes/Report: Hemoglobin A1c % 5.8 <6.0 % [...] average glucose, using the formula of the V9F-Fudkruk Average Glucose study (ADAG), Diabetes Care, Vol.31,#8, 2007 UA ClnCatch+Micro w/rflx Cul t (Not yet reviewed by provider) Interpretation: Performing Lab:[facility], [address] [place] [phone] Notes/Report: Urine, Clean Catch Color Urine Yellow Appearance Urine Clear PH 6.5 5.0-9.0 Glucose Urine UA Negative Negative mg/dL Urine Blood Small (1+) Negative Specific [place] - Urine 1.015 1.005-1.025 Urine Protein Negative Neg-Trace mg/dL Urine Ketones Negative Negative mg/dL Nitrite Urine Negative Negative Leukocyte Esterase Urine Trace Negative RBC Urine 11-20 0-2 /HPF WBC Urine 6-10 0-5 /HPF Squamous Epithelial Cell Urine 6-10 0-2 /HPF Bacteria Urine 3+ None Seen Hyaline Casts Urine 0-2 0-2 /LPF REASON FOR VISIT yearly fasting labs Encounters Encounter Location Date Provider Diagnosis Aaron Rob MD [address] [place] [address] [address] [place], [place] [phone] 10/04/2024 Aaron Rob Essential hypertensi on I10 ; Prediabetes R73.09 ; Lymphocytosis D72.820 ; Chronic systolic congestive heart failure I50.22 ; Hyperthyroidism E05.90 and Hypercholesterolemia E78.00 Assessments Encounter Date Diagnosis (ICD Code) Assessment Notes Treatment Notes Treatment Clinical Notes Section Notes 10/04/2024 Essential hypertensi on (ICD-10 - I10) 10/04/2024 Prediabetes (ICD-10 - R73.09) 10/04/2024 Lymphocytosis (ICD-1 0 - D72.820) 10/04/2024 Chronic systolic congestive heart failure (ICD-10 - I50.22) 10/04/2024 Hyperthyroidism (ICD -10 - E05.90) 10/04/2024 Hypercholesterolemia (ICD-10 - E78.00) Plan Of Treatment Pending Test Test Name Order Date Complete Blood Count Auto Diff 5 Comprehensive [place]. Panel Fast Lipid Panel 10/04/2024 TSH reflex Free T4 10/04/2024 Microalbumin, Random 10/04/2024 Hemoglobin A1c 10/04/2024 UA ClnCatch+Micro w/rflx Cult 10/04/2024 Next Appt Details Provider Name:Aaron Atkinson ier, 10/11/2024 11:00:00 AM, [address] [facility], [address], [place], [place], [phone], Progress Notes * Selene BARRYDOB: [birth year] (69 yo F)Acc No.[id number]:10/04/2024 Progress Note Patient:?Selene BARRY Provider:?Aaron Rob MD :1955???Age:69 Y???Sex:Female D ate:10/04/2024 Address:[address] [place], [place] [id number] Subjective: * Chief Complaints: * ???1. Yearly fasting labs. * Medical History:? Objective: * Vitals:? Assessment: * Assessment: 1.?Essential hypertension - I10 (Primary)???2.?Prediabetes - R73.09???3.?Lymphocytosis - D72.820???4.?Chronic systolic congestive heart failure - I50.22???5.?Hyperthyroidism - E05.90???6.?Hypercholesterolemia - E78.00??? Plan: * Treatment: 2.?Prediabetes?LAB: Complete Blood Count Auto Diff (Collection Date & Time - 10/04/2024 07:45 AM) ?LAB: Comprehensive [place]. Panel Fast (Collection Date & Time - 10/04/2024 07:45 AM) ?LAB: Lipid Panel (Collection Date & Time - 10/04/2024 07:45 AM) ?LAB: TSH reflex Free T4 (Collection Date & Time - 10/04/2024 07:45 AM) ?LAB: Microalbumin, Random (Collection Date & Time - 10/04/2024 07:45 AM) ?LAB: Hemoglobin A1c (Collection Date & Time 10/04/2024 07:45 AM) ?LAB: UA ClnCatch+Micro w/rflx Cult (Collection Date & Time - 10/04/2024 07:45 AM) 3.?Lymphocytosis?LAB: Complete Blood Count Auto Diff (Collection Date & Time - 10/04/2024 07:45 AM) ?LAB: Comprehensive [place]. Panel Fast (Collection Date & Time - 10/04/2024 07:45 AM) ?LAB: Lipid Panel (Collection Date & Time 10/04/2024 07:45 AM) ?LAB: TSH reflex Free T4 (Collection Date & Time - 10/04/2024 07:45 AM) ?LAB: Microalbumin, Random (Collection Date & Time 10/04/2024 07:45 AM) ?LAB: Hemoglobin A1c (Collection Date & Time 10/04/2024 07:45 AM) ?LAB: UA ClnCatch+Micro w/rflx Cult (Collection Date & Time 10/04/2024 07:45 AM) 4.?Chronic systolic congesti ve heart failure?LAB: Complete Blood Count Auto Diff (Collection Date & Time 10/04/2024 07:45 AM) ?LAB: Comprehensive [place]. Panel Fast (Collection Date & Time 10/04/2024 07:45 AM) ?LAB: Lipid Panel (Collection Date & Time 10/04/2024 07:45 AM) ?LAB: TSH reflex Free T4 (Collection Date & Time 10/04/2024 07:45 AM) ?LAB: Microalbumin, Random (Collection Date & Time 10/04/2024 07:45 AM) ?LAB: Hemoglobin A1c (Collection Date & Time - 10/04/2024 07:45 AM) ?LAB: UA ClnCatch+Micro w/rflx Cult (Collection Date & Time - 10/04/2024 07:45 AM) 5.?Hyperthyroidism?LAB: Complete Blood Count Auto Diff (Collection Date & Time - 10/04/2024 07:45 AM) ?LAB: Comprehensive [place]. Panel Fast (Collection Date & Time - 10/04/2024 07:45 AM) ?LAB: Lipid Panel (Collection Date & Time - 10/04/2024 07:45 AM) ?LAB: TSH reflex Free T4 (Collection Date & Time - 10/04/2024 07:45 AM) ?LAB: Microalbumin, Random (Collection Date & Time - 10/04/2024 07:45 AM) ?LAB: Hemoglobin A1c (Collection Date & Time - 10/04/2024 07:45 AM) ?LAB: UA ClnCatch+Micro w/rflx Cult (Collection Date & Time - 10/04/2024 07:45 AM) 6.?Hypercholesterolemia?LAB: Complete Blood Count Auto Diff (Collection Date & Time - 10/04/2024 07:45 AM) ?LAB: Comprehensive [place]. Panel Fast (Collection Date & Time - 10/04/2024 07:45 AM) ?LAB: Lipid Panel (Collection Date & Time - 10/04/2024 07:45 AM) ?LAB: TSH reflex Free T4 (Collection Date & Time - 10/04/2024 07:45 AM) ?LAB: Microalbumin, Random (Collection Date & Time 10/04/2024 07:45 AM) ?LAB: Hemoglobin A1c (Collection Date & Time - 10/04/2024 07:45 AM) ?LAB: UA ClnCatch+Micro w/rflx Cult (Collection Date & Time - 10/04/2024 07:45 AM) * Procedure Codes:?15036 VENIP UNCT, ROUTINE* * * The named appointment provid er may or may not be the originator of this progress note, and it is not deemed complete until electronically signed by the appointment provider. Sign off status: Pending * Provider:?Aaron Rob MD Date:?0 10/04/2024 Generated for Julius pittman/Fito/Jh on:?10/04/2024 12:33 PM EDT
== END 2024-10-04 10:37 | disposition home or self-care (01) ==
LOC: HO.LNP 10:36
PROVIDERS: Visit Provider Internal Medicine
DX: I10 Essential (primary) hypertension (principal); R73.03 Prediabetes; D72.820 Lymphocytosis (symptomatic); I50.22 Chronic systolic (congestive) heart failure; E05.90 Thyrotoxicosis, unspecified without thyrotoxic crisis or storm; E78.00 Pure hypercholesterolemia, unspecified
CPT/HCPCS: 80053; 80061; 81001; 82043; 82570; 83036; 84443; 85025; 87086

== ENCOUNTER 2024-10-17 11:01 | Outpatient (REF) | payer MEDICARE, MEDICAID, SELFPAY ==
--- NOTE | ~2024-10-17 | XR_ITS ---
CLINICAL HISTORY: MILD INTERMITTENT ASTHMA --- Additional Notes or Special Instructions: WO 2 view chest x-ray. Comparison: CR/SR - XR CHEST 2V - 06/29/24 13:38 EST Findings: The lungs are adequately expanded. No focal consolidation. No effusion or pneumothorax. Cardiac and mediastinal contours are stable. No acute osseous abnormality Impression: No acute process. This document has been electronically signed by: Romario Winters MD on 10/18/2024 21:55:08
--- OUTSIDE RECORDS SUMMARY | 2024-10-17 13:20 | XMS_ITS ---
Author Organization Aaron Rob MD Address [address] [place] [phone] Care Team Providers Care Full Stack Software Engineer Name Role Phone Aaron Rob Primary Care Provider Allergies No Known Allergies REASON FOR VISIT comp visit Medications Medication SIG (Take, Route, Frequency, Duration) Notes Start Date End Date Status Docusate Sodium 100 MG 1 capsule as need ed Orally Once a day Not-Taking Amoxicillin-Pot Clavulanate 875-125 MG 1 tablet Orally every 12 hrs for 7 days 08/25/2023 Not-Taking Omeprazole 20 MG Take 1 capsule by [facility] once daily for 90 Active Synthroid 100 MCG 1 tablet in the morn ing on an empty stomach Orally Once a day Active Metoprolol Succinate ER 50 MG 1 tablet Orally twice a day Active Enbrel 50 MG/ML 1 mL Subcutaneous Not-Taking Ventolin HFA 108 (90 Base) MCG/ACT INHALE 1 PUFF BY MOUTH EVERY 4 HOURS NEEDED Active Estradiol 0.1 MG/GM as directed Vaginal Two times a Week 10/11/2023 Active Atorvastatin Calcium 80 MG Take 1 tablet by mouth once daily Active Albuterol Sulfate (2.5 MG/3ML) 0.083% 3 ml Inhalation Three times a day 06/15/2012 Active Lasix 20 MG 1 tablet Orally Once a day Active Calcium + D 315-200 MG-UNIT 1 tablet Orally 500/125 once a day Active Aspir-81 81 MG 1 tablet Orally Once a day Active Social History Tobacco Use: Social History Observation [...] ast year? No Points 0 Interpretation Negative Vital Signs Blood pressure systolic 152 mm Hg 10/12/19 25 Blood pressure diastolic 78 mm Hg 025 Height 63.5 in 10/11/2024 Weight 183 lbs 10/11/2024 BMI 31.91 kg/m2 10/11/2024 weight is down 6 pounds [facility] e 07-06-24 Encounters Encounter Location Date Provider Diagnosis Aaron Rob MD [address] [place] [address] [place] [phone] 10/11/2024 Aaron Rob Atrophy of vagina N9 5.2 ; Vaginal prolapse N81.10 ; Hematuria R31.9 ; Essential hypertension I10 ; Prediabetes R73.09 ; Mild intermittent asthma without complication J45.20 ; Chronic systolic congestive heart failure I50.22 ; Graves disease E05.00 and Hypercholesterolemia E78.00 Assessments Encounter Date Diagnosis (ICD Code) Assessment Notes Treatment Notes Treatment Clinical Notes Section Notes 10/11/2024 Atrophy of vagina (ICD-10 - N95.2) is probably cause of the hematuria as well as the prolapse 10/11/2024 Vaginal prolapse (IC D-10 - N81.10) is going to have surgery 10/11/2024 Hematuria (ICD-10 - R31.9) will continue to monitor 10/11/2024 Essential hypertensi on (ICD-10 - I10) stable, will continue curent regiment 10/11/2024 Prediabetes (ICD-10 - R73.09) stable, no need for medication at this time 10/11/2024 Mild intermittent as thma without complication (ICD-10 - J45.20) stable, will continue current regiment 10/11/2024 Chronic systolic congestive heart failure (ICD-10 - I50.22) stable, will continue current regiment 10/11/2024 Graves disease (ICD- 10 - E05.00) stable, will continue current regiment 10/11/2024 Hypercholesterolemia (ICD-10 - E78.00) stable, will continue current regiment Plan Of Treatment Medication Medication Name Sig Start Date Stop Date Notes Synthroid 100 MCG 1 tablet in the morn ing on an empty stomach Orally Once a day Metoprolol Succinate ER 50 MG 1 tablet Orally twice a day Ventolin HFA 108 (90 Base) MCG/ACT INHALE 1 PUFF BY MOUTH EVERY 4 HOURS NEEDED Estradiol 0.1 MG/GM as directed Vaginal Two times a Week 10/11/2023 Atorvastatin Calcium 80 MG Take 1 tablet by mouth once daily Albuterol Sulfate (2.5 MG/3M L) 0.083% 3 ml Inhalation Three times a day 06/15/2012 Lasix 20 MG 1 tablet Orally Once a day Treatment Notes Assessment Notes Atrophy of vagina is probably cause of the hematuria as well as the prolapse Vaginal prolapse is going to have samuel marjorie Hematuria will continue to mon itor Essential hypertension stable, will cont inue curent regiment Prediabetes stable, no need for medication at this time Mild intermittent asthma without complic ation stable, will continue current regiment Chronic systolic congestive heart failur e stable, will continue current regiment Graves disease stable, will continu e current regiment Hypercholesterolemia stable, will contin ue current regiment Next Appt Details Follow Up: 4 Months, Reason: Provider Name:Aaron deleon, 02/15/2025 10:15:00 AM, [address] [place] [address], [address], [place], [phone], Provider Name:Aaron deleon, 04/16/2025 07:30:00 AM, [address] [place] [address], [address], [place], [place], [phone], Provider Name:Aaron Atkinson ier, 10/08/2025 07:45:00 AM, [address], [address], [place], [place], [phone], Provider Name:Aaron Atkinson ier, 10/15/2025 09:30:00 AM, [address], [address], [place], [phone], Progress Notes * Selene BARRYDOB: [birth year] (69 yo F)Acc No.[id number]:10/11/2024 Patient:?Selene BARRY Provider:?Aaron Rob MD :1955???Age:69 Y???Sex:Female D ate:10/11/2024 Address:[address] [place], [place] [id number] Subjective: * Chief Complaints: * ???Comp visit * HPI: ???Depression Screening:?PHQ-9?Little interest or pleasure in doing things?Not at all,?Feeling down, depressed, or hopeless?Not at all,?Trouble falling or staying asleep, or sleeping too much?Not at all,?Feeling tired or having little energy?Not at all,?Poor appetite or overeating?Not at all,?Feeling bad about yourself or that you are a failure, or have let yourself or your family down?Not at all,?Trouble concentrating on things, such as reading the newspaper or watching television?Not at all,?Moving or speaking so slowly that other people could have noticed; or the opposite, being so fidgety or restless that you have been moving around a lot more than usual?Not at all,?Thoughts that you would be better off or of hurting yourself in some way?Not at all,?Total Score?0.?Interpretation and Intervention?Depression Screening Findings?Negative,?Follow-Up for Depression?: review of PHQ-9 found negative result, no follow-up needed.?Communication Needs:?Communication Needs?Does the patient have a hearing impairment?No,?Does the patient have a vision impairment??Yes,?If yes, what is the vision impairment??Glasses,?Does the patient have a cognition impairment??No.?Fall Risk:?History?Have you had any falls with injury in the past year??No,?Have you had two or more falls in the past year??No.?SDOH Questions:?SDOH Questions?In the past year have you been worried about losing housing??No,?In the past year have you or any family members you live with been unable to get any of the following when it was really needed? Check all that apply:?None.?Symptom(s):? patient is a 69 yo female here for review of recent labs and follow up of chronic issues.has stopped the embrel? becaus neck and arms were hurting. one day didn't have the med and is feeling much better without. pelvis is going down so went to see urogynecologist.? they are going to schedule her for surgery. * ROS:?General/Constitutional:?Change in appetite?denies.?Chills?denies.?Fever?denies.?Ophthalmologic:?Blurred vision?denies.?Discharge?denies.?Pain?denies.?ENT:?Decreased hearing?denies.?Sore throat?denies.?Swollen glands?denies.?Endocrine:?Cold intolerance?denies.?Excessive thirst?denies.?Heat intolerance?denies.?Weight loss?denies.?Respiratory:?Cough?denies.?Shortness of breath at rest?denies.?Shortness of breath with exertion?denies.?Wheezing?denies.?Cardiovascular:?Chest pain at rest?denies.?Chest pain with exertion?denies.?Irregular heartbeat?denies.?Shortness of breath?denies.?Gastrointestinal:?Abdominal pain?denies.?Change in bowel habits?denies.?Diarrhea?denies.?Nausea?denies.?Rectal bleeding?denies.?Vomiting?denies .?Genitourinary:?Blood in urine?denies.?Difficulty urinating?denies.?Frequent urination?denies.?Urinary incontinence?Denies.?Musculoskeletal:?Painful joints?denies.?Weakness?denies.?Skin:?Dry skin?denies.?Itching?denies.?Denies?Mole(s),? changes in moles, new moles or any lesions of concern.?Denies?Photosensitivity.?Rash?denies.?Neurologic:?Dizziness?denies.?Fainting?denies.?Headache?denies.? * Medical History:? * Surgical History:? * Hospitalization/Major Diagno stic Procedure:? * Family History:?Father: dece ased 86 yrs.?Mother: 79 yrs.?2 brother(s) , 2 sister(s) . 1 daughter(s) . .? Father-RS Mother-Arthritis, Denies mental health/substance abuse family history, No pertinent family medical history, Denies mental health/substance abuse family history. * Social History:?Tobacco Use:?Tobacco Use/Smoking?Patient is a?former smoker,?How long has it been since you last smoked??> 10 years,?Additional Findings: Tobacco Non-User?Former smoker, currently using no form of tobacco.?Drugs/Alcohol:?Alcohol Screen?Did you have a drink containing alcohol in the past year??No,?Points?0,?Interpretation?Negative.?Miscellaneous:?Caffeine: yes, frequency:, 1-2 cups per day. Children: yes. Exercise: no. Home smoke detector use: yes. Living with: spouse. Marital status: . Travel outside of the [place]: no. * Medications:?TakingSynthroid 100 MCG Tablet 1 tablet in the morning on an empty stomach Orally Once a day Aspir-81 81 MG Tablet Delayed Release 1 tablet Orally Once a day Calcium + D 315-200 MG-UNIT Tablet 1 tablet Orally 500/125 once a day Lasix 20 MG Tablet 1 tablet Orally Once a day Albuterol Sulfate (2.5 MG/3ML) 0.083% Nebulization Solution 3 ml Inhalation Three times a day Estradiol 0.1 MG/GM Cream as directed Vaginal Two times a Week Atorvastatin Calcium 80 MG Tablet Take 1 tablet by mouth once daily Ventolin HFA 108 (90 Base) MCG/ACT Aerosol Solution INHALE 1 PUFF BY MOUTH EVERY 4 HOURS NEEDED Metoprolol Succinate ER 50 MG Tablet Extended Release 24 Hour 1 tablet Orally twice a day Omeprazole 20 MG Capsule Delayed Release Take 1 capsule by mouth once daily Taking Synthroid 100 MCG Tablet 1 tablet in the morning on an empty stomach Orally Once a day Taking Aspir-81 81 MG Tablet Delayed Release 1 tablet Orally Once a day Taking Calcium + D 315-200 MG-UNIT Tablet 1 tablet Orally 500/125 once a day Taking Lasix 20 MG Tablet 1 tablet Orally Once a day Taking Albuterol Sulfate (2.5 MG/3ML) 0.083% Nebulization Solution 3 ml Inhalation Three times a day Taking Estradiol 0.1 MG/GM Cream as directed Vaginal Two times a Week Taking Atorvastatin Calcium 80 MG Tablet Take 1 tablet by mouth once daily Taking Ventolin HFA 108 (90 Base) MCG/ACT Aerosol Solution INHALE 1 PUFF BY MOUTH EVERY 4 HOURS NEEDED Taking Metoprolol Succinate ER 50 MG Tablet Extended Release 24 Hour 1 tablet Orally twice a day Taking Omeprazole 20 MG Capsule Delayed Release Take 1 capsule by mouth once daily Not-Taking/PRNEnbrel 50 MG/ML Solution Prefilled Syringe 1 mL Subcutaneous Amoxicillin-Pot Clavulanate 875-125 MG Tablet 1 tablet Orally every 12 hrs Docusate Sodium 100 MG Capsule 1 capsule as needed Orally Once a day Not-Taking/PRN Enbrel 50 MG/ML Solution Prefilled Syringe 1 mL Subcutaneous Not-Taking/PRN Amoxicillin-Pot Clavulanate 875-125 MG Tablet 1 tablet Orally every 12 hrs Not-Taking/PRN Docusate Sodium 100 MG Capsule 1 capsule as needed Orally Once a day DiscontinuedGuaiatussin AC 100-10 MG/5ML Syrup 10 mL as needed Orally every 4 hrs Medication List reviewed and reconciled with the patientDiscontinued Guaiatussin AC 100-10 MG/5ML Syrup 10 mL as needed Orally every 4 hrs Medication List reviewed and reconciled with the patient * Allergies:?N.K.D.A.yes[Aller gies Verified] Objective: * Vitals:?Ht: 63.5, Wt: 183, B RI:31.91, BP:152/78, Repeat BP:140/70, Wt-k.01. weight is down 6 pounds since 07-06-24. * ???Past Orders: ???Lab:Microalbumin, Random (Order Date - 10/04/2024) (Collection Date & Time - 10/04/2024 07:45 AM) ? Value Reference Range ?Creatinine Urine 63.70 - m g/dL ?Microalbumin Urine 24.0 - mg/L ?Microalbum Creatinin e Ratio Ur 37.6 H <30 - ug/mg cr ???Lab:Hemoglobin A1c (Order Date - 10/04/2024) (Collection Date & Time - 10/04/2024 07:45 AM) ? Value Reference Range ?Hemoglobin A1c % 5.8 <6. 0 - % ?Estimated Average Glucose 120 - mg/dL ???Lab:Complete Blood Count Auto Diff (Order Date - 10/04/2024) (Collection Date & Time - 10/04/2024 07:45 AM) ? Value Reference Range ?White Blood Count 6.5 4. 8-10.8 - X10*3/uL ?Red Blood Count 5.27 4.20 -5.50 - X10*6/uL ?Hemoglobin 14.4 12.0-16.0 - g/dl ?Hematocrit 42.6 37.0-47.0 - % ?Mean Corpuscular Volume 80.8 80.0-98.0 - fL ?Mean Corpuscular Hemoglobin 27.3 27.0-33.0 - pg ?Mean Corpuscular HGB Conc 33.8 31.0-35.0 - g/dl ?Red Cell Distribution Width 13.2 11.0-16.0 - % ?Platelet Count 242 160-4 00 - X10*3/uL ?Mean Platelet Volume 11.1 9.4-12.3 - fL ?Neutrophils Percent Auto 44.3 L 45-73 - % ?Imm Gran Pct Auto 0.3 0. 0-0.4 - % ?Lymphocytes Percent Auto 42.8 H 20-40 - % ?Monocytes Percent Auto 9.0 2-11 - % ?Eosinophils Percent Auto 2.5 0-4 - % ?Basophils Percent Auto 1.1 0-2 - % ?NRBC Pct Auto 0.0 0.0-0. 2 - /100WBC ?Neutrophils Absolute Auto 2.9 2.0-8.3 - x10*3/uL ?Imm Gran Abs Auto 0.02 0. 00-0.03 - X10*3/uL ?Lymphocytes Absolute Auto 2.8 1.2-4.9 - X10*3/uL ?Monocytes Absolute Auto 0.6 0.1-1.2 - X10*3/uL ?Eosinophils Absolute Auto 0.2 0.0-0.4 - X10*3/uL ?Basophils Absolute Auto 0.1 0.0-0.2 - X10*3/uL ?NRBC Abs Auto 0.000 0.0-0. 012 - X10*3/uL ???Lab: ClnCatch+Micro w/r flx Cult (Order Date - 10/04/2024) (Collection Date & Time - 10/04/2024 07:45 AM) ? Value Reference Range ?Color Urine Yellow - ?Appearance Urine Clear - ?PH 6.5 5.0-9.0 - ?Glucose Urine UA Negative Neg ative - mg/dL ?Urine Blood Small (1+) A Negative - ?Specific [place] - Urine 1.015 1.005-1.025 - ?Urine Protein Negative Neg-Tr kindra - mg/dL ?Urine Ketones Negative Negati ve - mg/dL ?Nitrite Urine Negative Negati ve - ?Leukocyte Esterase Urine Trace A Negative - ?RBC Urine 11-20 A 0-2 - /HPF ?WBC Urine 6-10 A 0-5 - /HPF ?Squamous Epithelial Cell Urine 6-10 0-2 - /HPF ?Bacteria Urine 3+ None Seen - ?Hyaline Casts Urine 0-2 0-2 - /LPF ???Lab:Comprehensive [place]. P vandana Fast (Order Date - 10/04/2024) (Collection Date & Time - 10/04/2024 07:45 AM) ? Value Reference Range ?Sodium 144 135-145 - mmo l/L ?Bilirubin Total 0.6 0.0- 1.0 - mg/dL ?Aspartate Amino Transferase 25 5-31 - U/L ?Alanine Aminotransferase 14 0-31 - U/L ?Total Protein 7.3 6.5-8. 0 - g/dL ?Albumin Level 4.1 3.5-5. 0 - g/dL ?Alkaline Phosphatase 129 H 39-117 - U/L ?Potassium 3.9 3.3-5.1 - mmol/L ?Chloride 108 96-108 - mm ol/L ?Carbon Dioxide 26 22-29 - mmol/L ?Anion Gap 14 12-20 - ?Blood Urea Nitrogen 19 H 9-16 - mg/dL ?Creatinine 0.61 0.5-1.4 - mg/dL ?Estimated Glomerular Filt Rate > 60 - ?Glucose Fasting 130 H 60-9 9 - mg/dL ?Calcium 9.3 8.4-10.2 - m g/dL ???Lab:Lipid Panel (Order Da te - 10/04/2024) (Collection Date & Time - 10/04/2024 07:45 AM) ? Value Reference Range ?Triglycerides 101 <150 - mg/dL ?Cholesterol 92 <200 - m g/dL ?LDL Cholesterol Calculated 41 <100 - mg/dL ?HDL Cholesterol 31 L >40 - mg/dL ???Lab:Urine Culture (Order Date - 10/04/2024) (Collection Date & Time - 10/04/2024) ? Value Reference Range ?Urine Culture No growth. - ???Lab:TSH reflex Free T4 (O rder Date 10/04/2024) (Collection Date & Time - 10/04/2024 07:45 AM) ? Value Reference Range ?TSH reflex Free T4 0.34 0 .32-4.0 - uIU/mL * Examination: ???General Examination: ?GENERAL APPEARANCE:?well developed, well nourished, in no acute distress.?HEAD:?normocephalic, atraumatic.?EYES:?pupils equal, round, reactive to light and accommodation, sclera non-icteric.?EARS:?normal.?ORAL CAVITY:?mucosa moist.?THROAT:?clear.?NECK/THYROID:?neck supple, full range of motion, no cervical lymphadenopathy, no bruits.?SKIN:?warm and dry, no suspicious lesions.?HEART:?regular rate and rhythm, S1, S2 normal, no murmurs.?LUNGS:?clear to auscultation bilaterally.?ABDOMEN:?soft, nontender, nondistended, bowel sounds present, normal, no organomegaly , no masses palpable.?RECTAL EXAM:?done by process line operator.?FEMALE GENITOURINARY:?done by process line operator.?EXTREMITIES:?no clubbing, cyanosis, or edema.?NEUROLOGIC:?nonfocal, motor strength normal upper and lower extremities, sensory exam intact.? 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 Plan: * Treatment: 2.?Vaginal prolapse? Continue Estradiol Cream, 0.1 MG/GM, as directed, Vaginal, Two times a Week.?? Notes: is going to have surgery?? 3.?Hematuria? Notes: will continue to monitor?? 4.?Essential hypertension? Continue Metoprolol Succinate ER Tablet Extended Release 24 Hour, 50 MG, 1 tablet, Orally, twice a day.?? Notes: stable, will continue curent regiment?? 5.?Prediabetes? Notes: stable, no need for medication at this time?? 6.?Mild intermittent asthma without complication? Continue Albuterol Sulfate Nebulization Solution, (2.5 MG/3ML) 0.083%, 3 ml, Inhalation, Three times a day;?Continue Ventolin HFA Aerosol Solution, 108 (90 Base) MCG/ACT, INHALE 1 PUFF BY MOUTH EVERY 4 HOURS NEEDED.?? Notes: stable, will continue current regiment?? 7.?Chronic systolic congesti ve heart failure? Continue Lasix Tablet, 20 MG, 1 tablet, Orally, Once a day.?? Notes: stable, will continue current regiment?? 8.?Graves disease? Continue Synthroid Tablet, 100 MCG, 1 tablet in the morning on an empty stomach, Orally, Once a day.?? Notes: stable, will continue current regiment?? 9.?Hypercholesterolemia? Continue Atorvastatin Calcium Tablet, 80 MG, Take 1 tablet by mouth once daily.?? Notes: stable, will continue current regiment?? * Procedure Codes:?G2211 Compl ex e/m visit add on * Preventive Medicine:? ??Counseling:?Care goal follow-up plan:?Counseling for abnormal BMI provided?Yes,?Above Normal BMI Follow-up?Giving encouragement to exercise.? ??CHF Care Plan:?Patient Lifestyle Goals?Relieve symptoms and improve quality of life.?Treatment Goals?Take medicine exactly as directed and plan for RX refills.?Barriers ?No Specific barriers.?Self-Managment Goals?Monitor your symptoms daily,.?Expected Outcome?managing symptoms like shortness of breath and fatigue.? * Follow Up:?4 Months * * Sign off status: Completed true * Provider:?Aaron Rob MD Date:?0 10/11/2024 Generated for Julius pittman/Fito/Riosmitting on:?10/17/2024 01:20 PM EDT History and Physical Notes * HPI (History of Present Illness) Category Sub-Category Detail Notes Category Not es Symptom(s) patient is a 69 yo female here for review of recent labs and follow up of chronic issues.has stopped the embrel becaus neck and arms were hurting. one day didn't have the med and is feeling much better without. pelvis is going down so went to see urogynecologist. they are going to schedule her for surgery Depression Screening PHQ-9 Little inte rest or pleasure in doing things: Not at all Feeling down, depressed, or hopeless: No t at all Trouble falling or staying asleep, or sl eeping too much: Not at all Feeling tired or having little energy: N ot at all Poor appetite or overeating: Not at all Feeling bad about yourself o r that you are a failure, or have let yourself or your family down: Not at all Trouble concentrating on thi ngs, such as reading the newspaper or watching television: Not at all Moving or speaking so slowly that other people could have noticed; or the opposite, being so fidgety or restless that you have been moving around a lot more than usual: Not at all Thoughts that you would be b kalpana off or of hurting yourself in some way: Not at all Total Score: 0 Interpretation and Intervention Depression Paule antwon Findings: Negative Follow-Up for Depression: : review of PH Q-9 found negative result, no follow-up needed SDOH Questions SDOH Questions In the past year have you been worried about losing housing?: No In the past year have you or any family members you live with been unable to get any of the following when it was really needed? Check all that apply:: None Fall Risk History Have you had any falls with injury i n the past year?: No Have you had two or more falls in the st year?: No Communication Needs Communication Needs Does the patient have a hearing impairment: No Does the patient have a vision impairmen t?: Yes ?If yes, what is the vision impairment?: Glasses Does the patient have a cognition impair ment?: No Examination Category Sub-Category Detail Notes Category Not es General Examination GENERAL APPEARANCE: well dev eloped, well nourished, in no acute distress HEAD: normocephalic, atrau matic EYES: pupils equal, round, reactive to light and accommodation, sclera non- icteric EARS: normal THROAT: clear NECK/THYROID: neck supple, full ra nge of motion, no cervical lymphadenopathy, no bruits HEART: regular rate and rhy thm, S1, S2 normal, no murmurs LUNGS: clear to auscultatio n bilaterally ABDOMEN: soft, nontender, non distended, bowel sounds present, normal, no organomegaly , no masses palpable NEUROLOGIC: nonfocal, motor stre ngth normal upper and lower extremities, sensory exam intact SKIN: warm and dry, no olga picious lesions EXTREMITIES: no clubbing, cyanosi s, or edema BREASTS: RECTAL EXAM: done by process line operator FEMALE GENITOURINARY: done by process line operator ORAL CAVITY: mucosa moist
--- OUTSIDE RECORDS SUMMARY | 2024-10-17 13:20 | XMS_ITS | Clinical Summary ---
Author Organization [employer] [facility] Address [address] [place] [address] [address] [place] [address] Care Team Providers Care Management Developer Name Role Phone Unavailable Primary Care Provider [...] Recently Relevant to Health Maintenance Insurance MEDICARE [facility] MEDICAID [facility] ADULT
--- OUTSIDE RECORDS SUMMARY | 2024-10-17 13:20 | XMS_ITS | Patient Health Record ---
Author Organization Aaron Rob MD Address [address] [place] [id number] Care Team Providers Care Jawbone Puller Name Role Phone Aaron Rob Primary Care Provider Allergies No Known Allergies Results Component Value Reference Range Notes UA ClnCatch+Micro w/rflx Cul t Reviewed date:10/25/2023 07:32:44 AM Interpretation: Performing Lab:[facility], [address] [place] [phone] Notes/Report: Urine, Clean Catch Color Urine Yellow Appearance Urine Cloudy PH 6.5 5.0-9.0 Glucose Urine UA Negative Negative mg/dL Urine Blood Trace Negative Specific [place] - Urine 1.010 1.005-1.025 Urine Protein Negative Neg-Trace mg/dL Urine Ketones Negative Negative mg/dL Nitrite Urine Negative Negative Leukocyte Esterase Urine Large (3+) Negative RBC Urine 6-10 0-2 /HPF WBC Urine 11-20 0-5 /HPF Squamous Epithelial Cell Urine 11-20 0-2 /HPF Bacteria Urine 2+ None Seen Hyaline Casts Urine 0-2 0-2 /LPF UA ClnCatch+Micro w/rflx Cul t Reviewed date:11/12/2023 06:36:15 PM Interpretation: Performing Lab:[facility], [address] [place] [phone] Notes/Report: Urine, Clean Catch Color Urine Yellow Appearance Urine Clear PH 7.0 5.0-9.0 Glucose Urine UA Negative Negative mg/dL Urine Blood Negative Negative Specific [place] - Urine 1.015 1.005-1.025 Urine Protein Negative Neg-Trace mg/dL Urine Ketones Negative Negative mg/dL Nitrite Urine Negative Negative Leukocyte Esterase Urine Large (3+) Negative RBC Urine 0-2 0-2 /HPF WBC Urine 0-5 0-5 /HPF Squamous Epithelial Cell Urine 6-10 0-2 /HPF Bacteria Urine 1+ None Seen Hyaline Casts Urine 0-2 0-2 /LPF Liver Panel Reviewed date:06/04/2024 12:45:25 PM Interpretation: Performing Lab:[facility], [address] [place] [phone] Notes/Report: Bilirubin Total 0.9 0.0-1.0 mg/dL Bilirubin Direct 0.3 0.0-0.5 mg/dL Aspartate Amino Transferase 30 5-31 U/L Alanine Aminotransferase 16 0-31 U/L Total Protein 7.3 6.5-8.0 g/dL Albumin Level 4.0 3.5-5.0 g/dL Alkaline Phosphatase 122 39-117 U/L Glucose Fasting Reviewed date:06/04/2024 12:49:55 PM Interpretation: Performing Lab:[facility], [address] [place] [phone] Notes/Report: Glucose Fasting 109 60-99 mg/dL A fasting glucose from 100-125 mg/dl is considered impaired (pre-diabetes). Lipid Panel with Reflex Reviewed date:06/04/2024 12:45:35 PM Interpretation: Performing Lab:[facility], [address] [place] [phone] Notes/Report: Triglycerides 114 <150 mg/dL Desirable Triglyceride: [...] A1c Reviewed date:06/04/2024 12:44:41 PM Interpretation: Performing Lab:[facility], [address] [place] [phone] Notes/Report: Hemoglobin A1c % 5.3 <6.0 % [...] average glucose, using the formula of the H1H-Kthcfzd Average Glucose study (ADAG), Diabetes Care, Vol.31,#8, Jan. 2007 Complete Blood Count Auto Di ff Reviewed date:10/04/2024 06:46:14 PM Interpretation: Performing Lab:[facility], [address] [place] [phone] Notes/Report: White Blood Count 6.5 4.8-10.8 X10*3/uL [...] NRBC Abs Auto 0.000 0.0-0.012 X10*3/uL Comprehensive [place]. Panel Fa st Reviewed date:10/05/2024 09:05:22 AM Interpretation: Performing Lab:[facility], [address] [place] [phone] Notes/Report: Sodium 144 135-145 mmol/L Potassium 3.9 [...] Alkaline Phosphatase 129 39-117 U/L Lipid Panel Reviewed date:10/04/2024 06:22:42 PM Interpretation: Performing Lab:[facility], [address] [place] [phone] Notes/Report: Triglycerides 101 <150 mg/dL Desirable Triglyceride: [...] liver disease. TSH reflex Free T4 Reviewed date:10/04/2024 06:24:59 PM Interpretation: Performing Lab:[facility], [address] [place] [phone] Notes/Report: TSH reflex Free T4 0.34 0.32-4.0 uIU/mL Microalbumin, Random Reviewed date:10/04/2024 06:28:23 PM Interpretation: Performing Lab:[address] [address] Notes/Report: Creatinine Urine 63.70 Microalbumin Urine 24.0 Microalbum/Creatinine Ratio Ur 37.6 <30 ug/mg cr Albumin/Creatinine Ratio Reference Ranges: Normal: < 30 ug/mg creatinine Microalbuminuria: 30 - 300 ug/mg creatinine Clinical Albuminuria: > 300 ug/mg creatinine Hemoglobin A1c Reviewed date:10/04/2024 06:25:17 PM Interpretation: Performing Lab:[address] [phone] Notes/Report: Hemoglobin A1c % 5.8 <6.0 % [...] average glucose, using the formula of the L7G-Dbobjkl Average Glucose study (ADAG), Diabetes Care, Vol.31,#8, Jan. 2007 UA ClnCatch+Micro w/rflx Cul t Reviewed date:10/05/2024 09:05:43 AM Interpretation: Performing Lab:[facility], [address] [place] [phone] Notes/Report: Urine, Clean Catch Color Urine Yellow Appearance Urine Clear PH 6.5 5.0-9.0 Glucose Urine UA Negative Negative mg/dL Urine Blood Small (1+) Negative Specific [place] - Urine 1.015 1.005-1.025 Urine Protein Negative Neg-Trace mg/dL Urine Ketones Negative Negative mg/dL Nitrite Urine Negative Negative Leukocyte Esterase Urine Trace Negative RBC Urine 11-20 0-2 /HPF WBC Urine 6-10 0-5 /HPF Squamous Epithelial Cell Urine 6-10 0-2 /HPF Bacteria Urine 3+ None Seen Hyaline Casts Urine 0-2 0-2 /LPF TSH reflex Free T4 Reviewed date:07/06/2024 05:11:26 PM Interpretation: Performing Lab:[facility], [address] [place] [phone] Notes/Report: TSH reflex Free T4 0.16 0.32-4.0 uIU/mL Occult Blood, Stool, Guaiac Reviewed date:10/27/2023 02:15:06 PM Interpretation:Negative Performing Lab: Notes/Report: Negative Occult Blood, Stool, Guaiac Neg Urine Culture Reviewed date:10/25/2023 11:19:20 AM Interpretation: Performing Lab:[facility], [address] [place] [phone] Notes/Report: Urine Culture Report Result Urine Culture < 10,000 cfu/ml Urine Culture Reviewed date:11/12/2023 06:27:53 PM Interpretation: Performing Lab:[facility], [address] [place] [phone] Notes/Report: Urine Culture Report Result Urine Culture 10,000 to 50,000 cfu/ml Urine Culture Mixed bacterial herson a characteristic of Urine Culture urogenital contamination. Complete Blood Count Auto Di ff Reviewed date:01/23/2024 12:45:16 PM Interpretation: Performing Lab:[facility], [address] [place] [phone] Notes/Report: White Blood Count 6.1 4.8-10.8 X10*3/uL [...] te Reviewed date:01/23/2024 12:09:33 PM Interpretation: Performing Lab:[facility], [address] [place] [phone] Notes/Report: Erythrocyte Sedimentation Rate 2 0-20 MM/HR Patients with polycythemia and many hemoglobin abnormalities may have depressed sed rates whereas patients with anemia may have elevated sed rates. Comprehensive Met. Panel Reviewed date:01/23/2024 12:12:34 PM Interpretation: Performing Lab:[facility], [address] [place] [phone] Notes/Report: Sodium 141 135-145 mmol/L Potassium 4.0 3.3-5.1 mmol/L Chloride 110 96-108 mmol/L Carbon Dioxide 22 22-29 mmol/L Anion Gap 13 12-20 Blood Urea Nitrogen 20 9-16 mg/dL Creatinine 0.67 0.5-1.4 mg/dL Estimated Glomerular Filt Rate > 60 NOTE: For -Italian individuals, multiply the result by 1.210. Chronic [...] Protein Reviewed date:01/23/2024 12:09:42 PM Interpretation: Performing Lab:[facility], [address] [place] [phone] Notes/Report: C Reactive Protein 0.22 < or = 0.50 mg/dL XR knee LT 3V Reviewed date:04/27/2024 05:15:34 PM Interpretation: Performing Lab: Notes/Report: [address] [address] XRay Report Signed Patient: Selene Barry MR#: [id number] 3611 : 1955 Acct:[id number] Age/Sex: 68 / F ADM Date: 02/03/24 Loc: CARM[facility] Attending Dr: Kasey LUKE Ordering Physician: Kasey Wesley Date of Service: 02/03/24 Procedure(s): XR knee LT 3V Accession Number(s): [id number] cc: Aaron Rob MD; Kasey Wesley EXAMINATION: [...] 04/27/24 1138 DD/ 0954 TD/TT: 02/03/24 1022 Network Operations Analyst: [place] [address] XRay Report Signed Patient: Selene Barry MR#: [id number] 3611 : 1955 Acct:[id number] Age/Sex: 68 / F ADM Date: 02/03/24 Loc: CARM[facility] Attending Dr: Kasey LUKE Ordering Physician: Kasey Wesley Date of Service: 02/03/24 Procedure(s): XR kne e LT 3V Accession Number(s): [id number] cc: Aaron Rob MD; Kasey Wesley EXAMINATION: [...] 04/27/24 1138 DD/ 0954 TD/TT: 02/03/24 1022 Network Operations Analyst: XR foot LT min 3V Reviewed date:04/27/2024 11:59:11 AM Interpretation: Performing Lab: Notes/Report: [address] [address] XRay Report Signed Patient: Selene Barry MR#: [id number] 3611 : 1955 Acct:[id number] Age/Sex: 68 / F ADM Date: 02/03/24 Loc: HOZULMA Attending Dr: Kasey LUKE Ordering Physician: Kasey Wesley Date of Service: 02/03/24 Procedure(s): XR foot LT min 3V Accession Number(s): [id number] cc: Aaron Rob MD; Kasey Wesley EXAMINATION: [...] Mac Arce in OV> 04/27/24 1045 DD/ TD/TT: 02/03/24 1022 Network Operations Analyst: [address] [address] XRay Report Signed Patient: Selene Barry MR#: [id number] 3611 : 1955 Acct:[id number] Age/Sex: 68 / F ADM Date: 02/03/24 Loc: CARM[facility] Attending Dr: Kasey Wesley SOFTWARE TESTER Ordering Physician: Kasey Wesley Date of Service: 02/03/24 Procedure(s): XR sea t LT min 3V Accession Number(s): [id number] cc: Aaron Rob MD; Kasey Wesley EXAMINATION: [...] Mac Willson MD 04/27/2024 10:45 AM EDT Dictated By: Mac Joya Signed By: <Electronically signed by Mac Arce in OV> 04/27/24 1045 DD/ TD/TT: 02/03/24 1022 Network Operations Analyst: XR lumbar spine 4V min Reviewed date:04/11/2024 06:48:51 PM Interpretation: Performing Lab: Notes/Report: [address] [address] XRay Report Signed Patient: Selene Barry MR#: [id number] 3611 : 1955 Acct:[id number] Age/Sex: 68 / F ADM Date: 02/03/24 Loc: CARMEL Attending Dr: Kasey Wesley SOFTWARE TESTER Ordering Physician: Kasey Wesley Date of Service: 02/03/24 Procedure(s): XR lumbar spine 4V min Accession Number(s): [id number] cc: Aaron Rob MD; Kasey Wesley EXAMINATION: [...] 04/09/24 0840 DD/ 0954 TD/TT: 02/03/24 1022 Network Operations Analyst: [address] [address] XRay Report Signed Patient: Selene Barry MR#: [id number] 3611 : 1955 Acct:[id number] Age/Sex: 68 / F ADM Date: 02/03/24 Loc: CARMEL Attending Dr: Kasey LUKE Ordering Physician: Kasey Wesley Date of Service: 02/03/24 Procedure(s): XR lum bar spine 4V min Accession Number(s): [id number] cc: Aaron Rob MD; Kasey Wesley EXAMINATION: XR LUMBOSACRAL SPINE CLINICAL INFORMATION: Spondylosis, without myelopathy or radiculopathy. COMPARISON: MRI lumbar spine preet ed 07/07/2011 2012 lumbar spine radiographs dated 11/26/2010. TECHNIQUE: AP, bilateral obliqu e and lateral views of the lumbar spine were submitted, together with a lateral view of the lumbosacral junction. FINDINGS: There is bony demineralization. There is a transitional lumbar vertebra, with 6 nonrib-bearing lumbar-type vertebra. There is a moderately severe thoracolumbar rotatory levoscoliosis. There is mild general cargo clerk ior disc space narrowing at T12-L1 and [...] signed by Jos Martínez MD in OV> 10/14/24 0840 DD/ 0954 TD/TT: 02/03/24 1022 Network Operations Analyst: RONALD MR lumbar spine wo con Reviewed date:03/15/2024 12:30:31 PM Interpretation: Performing Lab: Notes/Report: [address] [address] Magnetic Resonance Report Signed Patient: Selene Barry MR#: [id number] 3611 : 1955 Acct:[id number] Age/Sex: 68 / F ADM Date: 03/14/24 Loc: HO.MRI Attending Dr: Kasey LUKE Ordering Physician: Kasey Wesley Date of Service: 03/14/24 Procedure(s): MR lumbar spine wo con Accession Number(s): [id number] cc: Aaron Rob MD; Kasey Wesley EXAMINATION: [...] OV> 03/15/24 1001 DD/ 10 TD/TT: 03/14/242027 Network Operations Analyst: [address] [address] Magnetic Resonance Report Signed Patient: Selene Barry MR#: [id number] 3611 : 1955 Acct:[id number] Age/Sex: 68 / F ADM Date: 03/14/24 Loc: HO.MRI Attending Dr: Kasey LUKE Ordering Physician: Kasey Wesley Date of Service: 03/14/24 Procedure(s): MR lum bar spine wo con Accession Number(s): [id number] cc: Aaron Rob MD; Kasey Wesley EXAMINATION: [...] OV> 03/15/24 1001 DD/ 10 TD/TT: 03/14/242027 Network Operations Analyst: MARIA ISABEL VASQUEZ tomosynthesis screening B I Reviewed date:03/28/2024 03:56:48 PM Interpretation: Performing Lab: Notes/Report: [place] [facility] [address] [place], [place] [address] Mammography Report Signed Patient: Selene Barry MR#: [id number] 3611 : 1955 Acct:[id number] Age/Sex: 68 / F ADM Date: 03/16/24 Loc: HO.MAMMO Attending Dr: Power Becker MD Ordering Physician: Power Becker MD Results: 1Negativ e Date of Service: 03/16/24 Follow Up: 1 Year From Orig inal Mammogram Procedure(s): MM tomosynthesis screening BI Accession Number(s): [id number] cc: Aaron Rob MD; Power Becker MD [...] 03/28/24 1159 DD/ 0830 TD/TT: 03/16/24 0840 Network Operations Analyst: [place] [facility] [address] [place] [address] Mammography Report Signed Patient: Selene Barry MR#: [id number] 3611 : 1955 Acct:[id number] Age/Sex: 68 / F ADM Date: 03/16/24 Loc: HO.MAMMO Attending Dr: Power Becker MD Ordering Physician: Power Becker MD Results: 1Negativ e Date of Service: 03/16/24 Follow Up: 1 Year From Orig inal Mammogram Procedure(s): MM tomosynthesis screening BI Accession Number(s): [id number] cc: Aaron Rob MD; Power Becker MD [...] 03/28/24 1159 DD/ 0830 TD/TT: 03/16/24 0840 Network Operations Analyst: XR DEXA axial skeleton Reviewed date:04/03/2024 02:11:53 PM Interpretation: Performing Lab: Notes/Report: [facility] [address] [place], [place] [address] Mammography Report Signed Patient: Selene Barry MR#: [id number] 3611 : 1955 Acct:[id number] Age/Sex: 68 / F ADM Date: 03/16/24 Loc: HO.MAMMO Attending Dr: Power Becker MD Ordering Physician: Power Becker MD Results: Date of Service: 03/16/24 Follow Up: Procedure(s): XR DEXA axial skeleton Accession Number(s): [id number] cc: Aaron Rob MD; Power Becker MD EXAMINATION: BONE DENSITOMETRY CLINICAL INDICATION: Menopause. COMPARISON: Previous BD dated 10/09/2021 and baseline BD dated 10/05/2016. TECHNIQUE: Using a [employer] DXA System (software version: 13.1) manufactured by [employer], dual-energy x-ray absorptiometry was performed of the [...] 04/03/24 0839 DD/ 0845 TD/TT: 03/16/24 0900 Network Operations Analyst: ABUNDIO [place] [facility] [address] [place] [address] Mammography Report Signed Patient: Selene Barry MR#: [id number] 3611 : 1955 Acct:[id number] Age/Sex: 68 / F ADM Date: 03/16/24 Loc: HO.MAMMO Attending Dr: Power Becker MD Ordering Physician: Power Becker MD Results: Date of Service: 03/16/24 Follow Up: Procedure(s): XR DEX A axial skeleton Accession Number(s): [id number] cc: Aaron Rob MD; Power Becker MD EXAMINATION: BONE DENSITOMETRY CLINICAL INDICATION: Menopause. COMPARISON: Previous BD dated 10/09/2021 and baseline BD dated 10/05/2016. TECHNIQUE: Using a [employer] DXA System (software version: 13.1) Evri, dual-energy x-ray absorptiometry was performed of the [...] 04/03/24 0839 DD/ 0845 TD/TT: 03/16/24 0900 Network Operations Analyst: MR thoracic spine wo con Reviewed date:04/04/2024 06:26:06 PM Interpretation: Performing Lab: Notes/Report: [address] [address] Magnetic Resonance Report Signed Patient: Selene Barry MR#: [id number] 3611 : 1955 Acct:[id number] Age/Sex: 68 / F ADM Date: 04/02/24 Loc: HO.MRI Attending Dr: Osmel MARADIAGA Ordering Physician: Osmel Mckoy Date of Service: 04/02/24 Procedure(s): MR thoracic spine wo con Accession Number(s): [id number] cc: Aaron Rob MD; Osmel Mckoy EXAMINATION: [...] 04/03/24 1509 DD/ 1830 TD/TT: 04/02/24 1855 Network Operations Analyst: [place] [address] Magnetic Resonance Report Signed Patient: Selene Barry MR#: [id number] 3611 : 1955 Acct:[id number] Age/Sex: 68 / F ADM Date: 04/02/24 Loc: HO.MRI Attending Dr: Osmel MARADIAGA Ordering Physician: Osmel Mckoy Date of Service: 04/02/24 Procedure(s): MR thoracic spine wo con Accession Number(s): [id number] cc: Aaron Rob MD; Osmel Mckoy EXAMINATION: [...] 04/03/24 1509 DD/ 1830 TD/TT: 04/02/24 1855 Network Operations Analyst: Complete Blood Count Auto Di ff Reviewed date:05/03/2024 12:29:13 PM Interpretation: Performing Lab:[facility], [address] [place] [phone] Notes/Report: White Blood Count 6.5 4.8-10.8 X10*3/uL [...] te Reviewed date:05/03/2024 12:46:33 PM Interpretation: Performing Lab:[address] [address] Notes/Report: Erythrocyte Sedimentation Rate 5 0-20 MM/HR Patients with polycythemia and many hemoglobin abnormalities may have depressed sed rates whereas patients with anemia may have elevated sed rates. Comprehensive Met. Panel Reviewed date:05/03/2024 12:46:22 PM Interpretation: Performing Lab:[address] [address] Notes/Report: Sodium 141 135-145 mmol/L Potassium 4.5 3.3-5.1 mmol/L Slight Hemolysis.Interpret result with caution. Chloride 108 96-108 mmol/L Carbon Dioxide 21 22-29 mmol/L Anion Gap 17 12-20 Blood Urea Nitrogen 15 9-16 mg/dL Creatinine 0.60 0.5-1.4 mg/dL Estimated Glomerular Filt Rate > 60 NOTE: For -Italian individuals, multiply the result by 1.210. Chronic [...] Protein Reviewed date:05/03/2024 12:28:49 PM Interpretation: Performing Lab:[address] [address] Notes/Report: C Reactive Protein 0.61 < or = 0.50 mg/dL Hepatitis A,B,C Profile Reviewed date:05/03/2024 12:28:29 PM Interpretation: Performing Lab:[address] [address] Notes/Report: Hepatitis A Antibody IgM Nonreactive Nonreactive [...] TB Reviewed date:05/06/2024 12:59:20 PM Interpretation: Performing Lab:[address] [address] Notes/Report: TSpotTB Negative Negative A negative test [...] Passed For additional information, please refer to [email or web address] [email or web address] (This link is being provided for informational/ educational purposes only.) THIS TEST WAS PERFORMED AT: [facility] [address] RACHELL OLIVAREZ MD,PHD CT lumbar spine wo con Reviewed date:07/23/2024 05:20:34 PM Interpretation: Performing Lab: Notes/Report: [address] [address] [address] Scan Report Signed Patient: Selene Barry MR#: [id number] 3611 : 1955 Acct:[id number] Age/Sex: 69 / F ADM Date: 05/11/24 Loc: HO.CT Attending Dr: Osmel MARADIAGA Ordering Physician: Osmel Mckoy Date of Service: 05/11/24 Procedure(s): CT lumbar spine wo IV con Accession Number(s): [id number] cc: Aaron Rob MD; Osmel Mckoy Report Number: [id number]: Total DLP = 681.00 mGy-cm EXAMINATION: CT [...] 07/23/24 0441 DD/ 1318 TD/TT: 05/11/24 1345 Network Operations Analyst: [place] [address] CT Scan Report Signed Patient: Selene Barry MR#: [id number] 3611 : 1955 Acct:[id number] Age/Sex: 69 / F ADM Date: 05/11/24 Loc: HO.CT Attending Dr: Osmel MARADIAGA Ordering Physician: Osmel Mckoy Date of Service: 05/11/24 Procedure(s): CT lum bar spine wo IV con Accession Number(s): [id number] cc: Aaron Rob MD; Osmel Mckoy Report Number: [id number]: Total DLP = 681.00 mGy-cm EXAMINATION: CT [...] of S1. 1. No evidence of ac [place] fracture or traumatic subluxation of the lumbar [...] 07/23/24 0441 DD/ 1318 TD/TT: 05/11/24 1345 Network Operations Analyst: KYAW Monsivais Reviewed date:06/04/2024 12:48:56 PM Interpretation: Performing Lab:[facility], [address] [place] [phone] Notes/Report: Afshan Monsivais See Note Specimen held untested for 24 hours; Call to request Chemistry testing. XR chest 2V Reviewed date:07/06/2024 12:50:13 PM Interpretation:CBACK 07/06/24 Performing Lab: Notes/Report: [address] [address] XRay Report Signed Patient: Selene Barry MR#: [id number] 3611 : 1955 Acct:[id number] Age/Sex: 69 / F ADM Date: 06/29/24 Loc: HO.XRAY Attending Dr: Aaron Rob MD Ordering Physician: Aaron Rob MD Date of Service: 06/29/24 Procedure(s): XR chest 2V Accession Number(s): [id number] cc: Aaron Rob MD CLINICAL HISTORY: Acute [...] Grajeda MD in OV> 07/02/24 1055 DD/ 105 TD/TT: 07/02/24 105 Network Operations Analyst: [place] [address] XRay Report Signed Patient: Selene Barry MR#: [id number] 3611 : 1955 Acct:[id number] Age/Sex: 69 / F ADM Date: 06/29/24 Loc: CARMEL Attending Dr: Aaron Rob MD Ordering Physician: Aaron Rob MD Date of Service: 06/29/24 Procedure(s): XR tigist st 2V Accession Number(s): [id number] cc: Aaron Rbo MD CLINICAL HISTORY: Ac [place] tribes URI Chest two views Comparison: None Findings: [...] 07/02/24 1055 DD/ 1055 TD/TT: 07/02/24 1055 Network Operations Analyst: Free T4 (Free Thyroxine) Reviewed date:07/06/2024 05:11:14 PM Interpretation: Performing Lab:[facility], [address] [place] [phone] Notes/Report: Free T4 (Free Thyroxine) 1.31 0.71-1.85 ng/dL Afshan Monsivais Reviewed date:07/06/2024 01:24:48 PM Interpretation: Performing Lab:[facility], [address] [place] [phone] Notes/Report: Afshan Monsivais See Note Specimen held untested for 24 hours; Call to request Chemistry testing. Afshan Monsivais Reviewed date:10/04/2024 06:20:14 PM Interpretation: Performing Lab:[facility], [address] [place] [phone] Notes/Report: Afshan Monsivais See Note Specimen held untested for 24 hours; Call to request Chemistry testing. Urine Culture Reviewed date:10/05/2024 09:02:59 AM Interpretation: Performing Lab:[facility], [address] [place] [phone] Notes/Report: Urine Culture No growth. Reason For Referral Reason osteoporosis Diagnosis 1 Age-related osteopor osis without current pathological fracture (M81.0) Referral Organization Aaron Rob MD Referring Provider First Name Aaron Referring Provider Last Name Darron Referring Provider Speciality Internal M edicine Referred Provider Angelo Andrew Referred Provider Specialty Endocrinolog y General Notes Ursula Tracy 0 07/26/2024 03:26:47 PM >info faxed with [facility] office note Referral Priority Routine Referral Appointment Date 07/30/2024 Medications Medication SIG (Take, Route, Frequency, Duration) Notes Start Date End Date Status Synthroid 100 MCG 1 tablet in the [...] tablet Orally 500/125 once a day Active Docusate Sodium 100 MG 1 capsule as need ed Orally Once a day Not-Taking Aspir-81 81 MG 1 tablet Orally Once a day Active Amoxicillin-Pot Clavulanate 875-125 MG 1 tablet Orally every 12 hrs for 7 days 08/25/2023 Not-Taking Omeprazole 20 MG Take 1 capsule by [facility] once daily for 90 Active Immunizations Vaccine Route Administration Date Status [...] W/U Status Risk Notes Problem Hypercoagulable state (25754900) Secondary hypercoagulable state (289.82) Active confirmed Problem Spinal stenosis (57174500) Spinal stenosis (724.00) Active confirmed Problem 91064223 Age-related osteoporosis without current pathological fracture (M81.0) Active confirmed Problem 945507559 Thyroid nodule (E04.1) Active confirm ed Problem 69610437 Lymphocytosis (D72.820) Active confirmed Problem 799804531665985 half-way (curre nt) use of systemic steroids (Z79.52) Active confirmed Problem 09967715 Lumbar disc dise ase (M51.9) Active confirmed Problem 24228462 Essential hypert ension (I10) Active confirmed Problem 383367637 Mild intermitten t asthma without complication (J45.20) Active confirmed Problem 7725519 Prediabetes (R73.09) Active confirmed Problem 860636719 Chronic systolic congestive heart failure (I50.22) Active confirmed Problem 73603684 Hyperthyroidism (E05.90) Active confirmed Problem 894724435 Rheumatoid arthr itis involving multiple sites, 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) Active confirmed Problem 374530272 Graves disease (E05.00) Active confirmed Problem 753276223 History of coron marie artery bypass graft (Z95.1) Active confirmed Problem 8665840 Thyromegaly (E04.9) Active confirmed Problem 542848203 Non-rheumatic mi tral regurgitation (I34.0) Active confirmed Problem 070969245 Thyroid cancer (C73) Active confirmed Problem 971305541 Vaginal bleeding (N93.9) Active confirmed Problem 89337749 Sciatica of righ t side (M54.31) Active confirmed Problem 88686556 Hypercholesterol emia (E78.00) Active confirmed Problem 0188200637223 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) Active confirmed Problem 999392355 Atrophy of vagin a (N95.2) Active confirmed Problem 788359387 Vaginal prolapse (N81.10) Active confirmed Vital Signs Blood pressure diastolic 78 mm Hg 10/11/2024 doroteo ght is down 6 pounds since 07-06-24 Height 63.5 in 10/11/2024 weight is down 6 pounds since 07-06-24 Blood pressure systolic 152 mm Hg 10/11/2024 doroteog ht is down 6 pounds since 07-06-24 Weight 183 lbs 10/11/2024 weight is down 6 pounds since 07-06-24 BMI 31.91 kg/m2 10/11/2024 weight is down 6 pounds since 07-06-24 Encounters Encounter Location Date Provider Diagnosis Aaron Rob MD [address] [place] [address] [id number] 10/24/2023 Aaron Rob Hematuria R31.9 Aaron Rob MD [address] [place] [address] [id number] 11/11/2023 Aaron Rob Hematuria, unspecifi ed type R31.9 Aaron Rob MD [address] [place] [address] [id number] 06/04/2024 Aaron Rob Prediabetes R73.09 a nd Hypercholesterolemia E78.00 Aaron Rob MD [address] [place] [address] [id number] 10/04/2024 Aaron Rob Essential hypertensi on I10 ; Prediabetes R73.09 ; Lymphocytosis D72.820 ; Chronic systolic congestive heart failure I50.22 ; Hyperthyroidism E05.90 and Hypercholesterolemia E78.00 Aaron Rob MD [address] [place] [address] [id number] 04/16/2024 Aaron Rob Encounter for administration of vaccine Z23 Aaron Rob MD [address] [place] [address] [id number] 06/11/2024 Aaron Rob Vaginal prolapse N81 .10 ; Essential hypertension I10 and Rheumatoid arthritis involving multiple sites, unspecified rheumatoid factor presence M06.9 Aaron Rob MD [address] [place] [address] [id number] 06/21/2024 Aaron Rob Mild intermittent as thma without complication J45.20 Aaron Rob MD [address] [place] [address] [id number] 06/29/2024 Aaron Rob Acute URI J06.9 Aaron Rob MD [address] [place] [address] [id number] 07/06/2024 Aaron Rob Mild intermittent as thma without complication J45.20 ; Hyperthyroidism E05.90 and Pneumonitis, interstitial J84.89 Aaron Rob MD [address] [place] [address] [id number] 10/11/2024 Aaron Rob Atrophy of vagina N9 5.2 ; Vaginal prolapse N81.10 ; Hematuria R31.9 ; Essential hypertension I10 ; Prediabetes R73.09 ; Mild intermittent asthma without complication J45.20 ; Chronic systolic congestive heart failure I50.22 ; Graves disease E05.00 and Hypercholesterolemia E78.00 Aaron Rob MD [address] [place] [address] [id number] 10/24/2023 Aaron Rob Colon cancer screeni Z12.11 Assessments Encounter Date Diagnosis (ICD Code) Assessment Notes Treatment Notes Treatment Clinical Notes Section Notes 11/11/2023 Hematuria, unspecifi ed type (ICD-10 - R31.9) 06/04/2024 Prediabetes (ICD-10 - R73.09) 06/04/2024 Hypercholesterolemia (ICD-10 - E78.00) 10/04/2024 Essential hypertensi on (ICD-10 - I10) 04/16/2024 Encounter for administration of vaccine (ICD-10 - Z23) 06/11/2024 Vaginal prolapse (ICD-10 - N81.10) is trying to decide if surgery or pessary. will try pessary, 06/21/2024 Mild intermittent asthma without complication (ICD-10 - J45.20) 06/29/2024 Acute URI (ICD-10 - J06.9) THE XRAY ORDER WAS FAXED TO [facility] PATIENT REG. PATIENT AWARE, patient verbalized understanding of medication and directions for use, pending diagnostic testing 07/06/2024 Mild intermittent asthma without complication (ICD-10 - J45.20) discussed findings of recent chst xray with paient, not coughing/ future order given to patient, will cntinue to monitor 07/06/2024 Hyperthyroidism (ICD -10 - E05.90) pending labs 10/11/2024 Atrophy of vagina (ICD-10 - N95.2) is probably cause of the hematuria as well as the prolapse 10/11/2024 Vaginal prolapse (ICD-10 - N81.10) is going to have surgery 10/24/2023 Colon cancer screeni ng (ICD-10 - Z12.11) 10/24/2023 Hematuria (ICD-10 - R31.9) 10/04/2024 Prediabetes (ICD-10 - R73.09) 06/11/2024 Essential hypertensi on (ICD-10 - I10) running a little highInvestingNotell continue current regiment and will contiue to monitor 07/06/2024 Pneumonitis, interstitial (ICD-10 - J84.89) will contiue to monitor , pending future chest xray 10/11/2024 Hematuria (ICD-10 - R31.9) will continue to monitor 10/04/2024 Lymphocytosis (ICD-1 0 - D72.820) 06/11/2024 Rheumatoid arthritis involving multiple sites, unspecified rheumatoid factor presence (ICD-10 - M06.9) doing better on embrel, will continue current regiment 10/11/2024 Essential hypertensi on (ICD-10 - I10) stable, will continue curent regiment 10/04/2024 Chronic systolic congestive heart failure (ICD-10 - I50.22) 10/11/2024 Prediabetes (ICD-10 - R73.09) stable, no need for medication at this time 10/04/2024 Hyperthyroidism (ICD -10 - E05.90) 10/11/2024 Mild intermittent asthma without complication (ICD-10 - J45.20) stable, will continue current regiment 10/04/2024 Hypercholesterolemia (ICD-10 - E78.00) 10/11/2024 Chronic systolic congestive heart failure (ICD-10 - I50.22) stable, will continue current regiment 10/11/2024 Graves disease (ICD- 10 - E05.00) stable, will continue current regiment 10/11/2024 Hypercholesterolemia (ICD-10 - E78.00) stable, will continue current regiment Plan Of Treatment Pending Test Test Name Order Date Electrocardiogram (EKG) 06/07/2019 XR CHEST 2 VIEW PA & LAT 05/23/2023 XR CHEST 2 VIEW PA & LAT 06/29/2024 BONE DENSITY DEXA 07/03/2021 Future Test Test Name Order Date XR CHEST 2 VIEW PA & LAT 08/03/2024 Next Appt Details Provider Name:Aaron Atkinson ier, 02/15/2025 10:15:00 AM, [address] [facility], [address], [place], [place], [phone], Provider Name:Aaron Atkinson ier, 04/16/2025 07:30:00 AM, [address] [place] [address] Drive, [address], [place], [place], [phone], Provider Name:Aaron Atkinson ier, 10/08/2025 07:45:00 AM, [address] [place] [address], Suite [facility], [place], [place], [phone], Provider Name:Aaron Atkinson ier, 10/15/2025 09:30:00 AM, [address] [place] [address], Suite [facility], [place], [place], [phone], Insurance Providers Payer Name Payer Address Payer Phone Subscriber Number Group Number Insured Name Patient Relationship to Insured Coverage Start Date Coverage End Date [employer] [address] [place] [address] [id number] Selene Valdovinos Self - patient is the insured [address] [address] [id number] Selene Valdovinos Self - patient is the insured Medical (General) History Medical History History ICD Code colonoscopy - 03/2008 hyperp lastic polyp due 03/[address] Lan; Colonoscopy done 07/14/[address] Lan - repeat 10 years [employer] appt 06/04/13 at [facility] hematuria w/u 2017 08/21/2019 Total Thyroidectomy Pulmonary nodule R91.1 nodule evaluated and no need for further eval 2017 Surgical History Surgery Date(Month/Year) L3-4, L4-5 Decompression 03/2014 Total Thyroidectomy 07/2019
--- OUTSIDE RECORDS SUMMARY | 2024-10-17 13:20 | XMS_ITS ---
Author Organization Aaron Rob MD Address [address] [facility] [place] [phone] Care Team Providers Care Aquaculture Worker Name Role Phone Aaron Rob Primary Care Provider REASON FOR VISIT 4 week follow up Encounters Encounter Location Date Provider Diagnosis Aaron Rob MD [address] [place] [address] [place] [address] [id number] 08/10/2024 Aaron Rob Plan Of Treatment Next Appt Details Provider Name:Aaron deleon, 02/15/2025 10:15:00 AM, [address] [place] [address], [address], [phone], Provider Name:Aaron deleon, 04/16/2025 07:30:00 AM, [address] [place] [address], [address], [phone], Provider Name:Aaron Atkinson ier, 10/08/2025 07:45:00 AM, [address], [address], [place], [place], [phone], Provider Name:Aaron Atkinson ier, 10/15/2025 09:30:00 AM, [address], [address], [place], [phone], Progress Notes * Selene BARRYDOB: [birth year] (69 yo F)Acc No.[id number]:08/10/2024 Progress Note Patient:?Selene BARRY Provider:?Aaron Rob MD :1955???Age:69 Y???Sex:Female D ate:08/10/2024 Address:[address] [place], [place] [id number] Subjective: * Chief Complaints: * ???1. 4 [...] Rob MD Date:?0 08/10/2024 Generated for Julius pittman/Fito/eTbeckiesmitting on:?10/17/2024 01:19 PM EDT
--- OUTSIDE RECORDS SUMMARY | 2024-10-17 13:20 | XMS_ITS | Encounter Summary ---
Author Organization [facility] Address [address] [facility] 7t [place] [address] Care Team Providers Care Cps Team Lead Name Role Phone Unavailable Primary Care Provider Unavailabl e Encounter Details Date Type Department Care Team (Late st Contact Info) Description 03/01/2023 Abstract [facility] ADULT DENTAL [address] [place] [address] Sunny Martin, KATHARINA [address] [place] [address] Social History Tobacco Use Types Packs/Day Years [...]
--- OUTSIDE RECORDS SUMMARY | 2024-10-17 13:20 | XMS_ITS ---
Author Organization Aaron Rob MD Address [address] [place] [phone] Care Team Providers Care Living Advisor Name Role Phone Aaron Rob Primary Care Provider [phone] Results Component Value Reference Range Notes Complete Blood Count Auto Di ff Reviewed date:10/04/2024 06:46:14 PM Interpretation: Performing Lab:[facility], [address] [place] [phone] Notes/Report: White Blood Count 6.5 4.8-10.8 X10*3/uL [...] NRBC Abs Auto 0.000 0.0-0.012 X10*3/uL Comprehensive [place]. Panel Fa st Reviewed date:10/05/2024 09:05:22 AM Interpretation: Performing Lab:[facility], [address] [place] [phone] Notes/Report: Sodium 144 135-145 mmol/L Potassium 3.9 [...] Panel Reviewed date:10/04/2024 06:22:42 PM Interpretation: Performing Lab:[facility], [address] [place] [phone] Notes/Report: Triglycerides 101 <150 mg/dL Desirable Triglyceride: [...] T4 Reviewed date:10/04/2024 06:24:59 PM Interpretation: Performing Lab:[address] [phone] Notes/Report: TSH reflex Free T4 0.34 0.32-4.0 uIU/mL Microalbumin, Random Reviewed date:10/04/2024 06:28:23 PM Interpretation: Performing Lab:[address] [phone] Notes/Report: Creatinine Urine 63.70 Microalbumin Urine 24.0 Microalbum/Creatinine Ratio Ur 37.6 <30 ug/mg cr Albumin/Creatinine Ratio Reference Ranges: Normal: < 30 ug/mg creatinine Microalbuminuria: 30 - 300 ug/mg creatinine Clinical Albuminuria: > 300 ug/mg creatinine Hemoglobin A1c Reviewed date:10/04/2024 06:25:17 PM Interpretation: Performing Lab:[facility], [address] [place] [phone] Notes/Report: Hemoglobin A1c % 5.8 <6.0 % [...] average glucose, using the formula of the Y4M-Wehdcac Average Glucose study (ADAG), Diabetes Care, Vol.31,#8, Jan. 2007 UA ClnCatch+Micro w/rflx Cul t Reviewed date:10/05/2024 09:05:43 AM Interpretation: Performing Lab:[facility], [address] [place] [phone] Notes/Report: Urine, Clean Catch Color Urine Yellow Appearance Urine Clear PH 6.5 5.0-9.0 Glucose Urine UA Negative Negative mg/dL Urine Blood Small (1+) Negative Specific [place] - Urine 1.015 1.005-1.025 Urine Protein Negative [...] Location Date Provider Diagnosis Aaron Rob MD [address] [place] [address] [address] [place], [place] [phone] 10/04/2024 Aaron Rob Essential hypertensi on I10 [...] Hypercholesterolemia (ICD-10 - E78.00) Plan Of Treatment Next Appt Details Provider Name:Aaron deleon, 02/15/2025 10:15:00 AM, [address], Suite [facility], [place], [place], [phone], Provider Name:Aaron Atkinson ier, 04/16/2025 07:30:00 AM, [address], [address], [place], [place], [phone], Provider Name:Aaron Atkinson ier, 10/08/2025 07:45:00 AM, [address], Suite [facility], [place], [place], [phone], Provider Name:Aaron villar, 10/15/2025 09:30:00 AM, [address] [place] [address], Suite [facility], [place], [place], [phone], Progress Notes * BARRYGian GALLEGOSwhitneyDOB: [birth year] (69 yo F)Acc No.[id number]:10/04/2024 Progress Note Patient:?Selene BARRY Provider:?Aaron Rob MD :1955???Age:69 Y???Sex:Female D ate:10/04/2024 Address:[address] [place] [id number] Subjective: * Chief Complaints: * ???1. Yearly fasting labs. * Medical History:? Objective: * Vitals:? Assessment: * Assessment: 1.?Essential hypertension - I10 (Primary)???2.?Prediabetes - R73.09???3.?Lymphocytosis - D72.820???4.?Chronic systolic congestive heart failure - I50.22???5.?Hyperthyroidism - E05.90???6.?Hypercholesterolemia - E78.00??? Plan: * Treatment: 2.?Prediabetes?LAB: Complete Blood Count Auto Diff (Collection Date & Time - 10/04/2024 07:45 AM) ?LAB: Comprehensive [place]. Panel Fast (Collection Date & Time - [...] Time - 10/04/2024 07:45 AM) ?LAB: Comprehensive [place]. Panel Fast (Collection Date & Time - [...] Date & Time - 10/04/2024 07:45 AM) 4.?Chronic systolic congesti ve heart failure?LAB: Complete Blood Count Auto Diff (Collection Date & Time - 10/04/2024 07:45 AM) ?LAB: Comprehensive [place]. Panel Fast (Collection Date & Time - [...] (Collection Date & Time 10/04/2024 07:45 AM) 5.?Hyperthyroidism?LAB: Complete Blood Count Auto Diff (Collection Date & Time 10/04/2024 07:45 AM) ?LAB: Comprehensive [place]. Panel Fast (Collection Date & Time 10/04/2024 07:45 AM) ?LAB: Lipid Panel (Collection Date & Time 10/04/2024 07:45 AM) ?LAB: TSH reflex Free T4 (Collection Date & Time 10/04/2024 07:45 AM) ?LAB: Microalbumin, Random (Collection Date & Time 10/04/2024 07:45 AM) ?LAB: Hemoglobin A1c (Collection Date & Time 10/04/2024 07:45 AM) ?LAB: UA ClnCatch+Micro w/rflx Cult (Collection Date & Time 10/04/2024 07:45 AM) 6.?Hypercholesterolemia?LAB: Complete Blood Count Auto Diff (Collection Date & Time 10/04/2024 07:45 AM) ?LAB: Comprehensive [place]. Panel Fast (Collection Date & Time 10/04/2024 [...] Time - 10/04/2024 07:45 AM) * Procedure Codes:?75967 VENIP UNCT, ROUTINE* * * The named appointment provid er may or may not be the originator of this progress note, and it is not deemed complete until electronically signed by the appointment provider. Sign off status: Pending * Provider:?Aaron Rob MD Date:?0 10/04/2024 Generated for Julius pittman/Fito/Dionnaitting on:?10/17/2024 01:19 PM EDT
== END 2024-10-17 11:02 | disposition home or self-care (01) ==
LOC: HO.XRAY 11:01
PROVIDERS: PCP Internal Medicine; Visit Provider Internal Medicine
DX: J45.20 Mild intermittent asthma, uncomplicated (principal)
CPT/HCPCS: 71046

== ENCOUNTER → 2024-10-17 11:05 | Outpatient (BNV) | payer MEDICARE, MEDICAID, SELFPAY | PROVIDERS: PCP Internal Medicine; Visit Provider Radiology Vascular & Interventional Radiology | DX: J45.20 Mild intermittent asthma, uncomplicated (principal) | CPT/HCPCS: 71046 ==

== ENCOUNTER 2024-10-22 10:50 | Outpatient (AMB) | payer MEDICARE, MEDICAID, SELFPAY ==
--- NOTE | 2024-10-22 10:58 | HO.SPINEOV ---
Intake Visit Reasons: surgical discussion Intake Note: Ms. Barry is here today to Discuss surgery. Group Therapist Required: No Allergies No Known Allergies [No Known Allergies*] Allergy (Verified 10/22/24 10:59) Assessment & Plan Assessment & Plan (1) Left lumbar radiculopathy: Code(s): M54.16 - Radiculopathy, lumbar region Category: Medical Plan Selene comes in today for follow-up to discuss possible surgical options with her daughter present today. I attempted to call her to review her imaging and discuss surgical options, however she requested a office visit to have her daughter present. To recap she was initially seen in clinic for severe left leg pain. She has a degenerative scoliosis with osteopenia on most recent DEXA scan (03/16/24). She has transitional anatomy and we are referring to the first formed disc space as L5-S1. After reviewing her imaging and case with Dr. Beltran he offered her a left sided L5-S1 decompression to address her left leg pain. She reports minimal low back pain primarily with ambulation, but this is not her main concern. When describing the pain in her leg she says it shoots down the lateral side of her left leg terminating near the left ankle. In addition to this leg pain she reports a left-sided footdrop (noted on last office visit exam) and trouble with ambulation, however she does not use any assistive devices. Today we extensively discussed left sided lumbar decompression at L5-S1 to address her left leg pain. She no longer takes her Enbrel (DMARD) for her rheumatoid arthritis, so this will not be an issue. She does still take Aspirin which she understands she will need to stop 7 days before surgery. Both her and her daughter asked many questions regarding the surgical procedure and postoperative expected recovery, all of which I answered to the best of my ability during this encounter. She did state that she would like to have 1 last follow-up appointment with Dr. Beltran so that her and her daughter can meet him prior to surgery. She has been tentatively booked for 11/15/24. The patient was given risk and benefits of surgery including but not limited to infection, hematoma, nerve injury, durotomy, weakness, bowel/bladder injury, persistent pain, and pseudoarthosis or instrumentation failure if they are undergoing lumbar fusion. In addition to this for males undergoing anterior lumbar fusion there is a low risk of retrograde ejaculation. We also discussed the option to continue with conservative treatment and patient wishes to proceed with surgery. They are aware they should stop NSAIDs 7 days prior to surgery. All questions were answered to the best of our ability. If there is anything about this patients medical history that we have overlooked or concerns you have about us proceeding with surgery we would appreciate any input you can offer. Osmel Beltran MD,PhD [facility] Coding Level of Care Code Est Pt Level 3 (54078) Diagnoses Left lumbar radiculopathy M54.16
--- OUTSIDE RECORDS SUMMARY | 2024-10-22 12:55 | XMS_ITS | Clinical Summary ---
Author Organization [facility] [employer] Address [address] [place] [address] 7t [place] [address] Care Team Providers Care Clinical Abstractor Name Role Phone Unavailable Primary Care Provider [...] Recently Relevant to Health Maintenance Insurance MEDICARE [facility] D[facility] MEDICAID [facility] ADULT
--- OUTSIDE RECORDS SUMMARY | 2024-10-22 12:55 | XMS_ITS | Encounter Summary ---
Author Organization [facility] Address [address] [facility] 7t [place] [address] Care Team Providers Care Texturing Machine Fixer Name Role Phone Unavailable Primary Care Provider Unavailabl e Encounter Details Date Type Department Care Team (Late st Contact Info) Description 03/01/2023 Abstract [facility] ADULT DENTAL [address] [place] [address] Sunny Martin, KATHARINA [address] [place] [address] Social History Tobacco Use Types Packs/Day Years [...]
== END 2024-10-22 11:24 | disposition home or self-care (01) ==
LOC: HO.HNS 10:51
PROVIDERS: PCP Internal Medicine; Visit Provider Physician Assistant
DX: M54.16 Radiculopathy, lumbar region (principal)
CPT/HCPCS: 99213

== ENCOUNTER → 2024-10-22 10:50 | Outpatient (BNVA) | payer MEDICARE, MEDICAID, SELFPAY | PROVIDERS: PCP Internal Medicine; Visit Provider Physician Assistant | DX: M54.16 Radiculopathy, lumbar region (principal) | CPT/HCPCS: 99212 ==

== ENCOUNTER 2024-11-02 11:35 | Outpatient (REF) | payer MEDICARE, MEDICAID, SELFPAY ==
[2024-11-02 12:02] LABS: MANUAL DIFF FLAG NO
--- OUTSIDE RECORDS SUMMARY | 2024-11-02 12:03 | XMS_ITS | Encounter Summary ---
Author Organization [employer] Address [address] [facility] 7t [place] [address] Care Team Providers Care Buttermaker Name Role Phone Unavailable Primary Care Provider Unavailabl e Encounter Details Date Type Department Care Team (Late st Contact Info) Description 03/01/2023 Abstract [facility] ADULT DENTAL [address] [place] [address] Sunny Martin, DMD [address] [place] [address] Social History Tobacco Use Types Packs/Day Years [...]
--- OUTSIDE RECORDS SUMMARY | 2024-11-02 12:03 | XMS_ITS ---
Author Organization Aaron Rob MD Address [address] [place] [phone] Care Team Providers Care Riveter Pneumatic Name Role Phone Aaron Rob Primary Care Provider [phone] REASON FOR VISIT 4 week follow up Encounters Encounter Location Date Provider Diagnosis Aaron Rob MD [address] [place] [address] [place] [phone] 08/10/2024 Aaron Rob Plan Of Treatment Next Appt Details Provider Name:Aaron deleon, 02/15/2025 10:15:00 AM, [address] [place] [address], [address], [phone], Provider Name:Aaron deleon, 04/16/2025 07:30:00 AM, [address] [place] [address], [phone], Provider Name:Aaron Atkinson ier, 10/08/2025 07:45:00 AM, [address], [address], [place], [place], [phone], Provider Name:Aaron Atkinson ier, 10/15/2025 09:30:00 AM, [address], [address], [place], [phone], Progress Notes * Selene BARRYDOB: [birth year] (69 yo F)Acc No.[id number]:08/10/2024 Progress Note Patient:?Selene BARRY Provider:?Aaron Rob MD :1955???Age:69 Y???Sex:Female D ate:08/10/2024 Address:[address] [place], [place] [id number] Subjective: * Chief Complaints: * ???1. 4 [...] MD Date:?0 08/10/2024 Generated for Julius pittman/Fito/eTbeckiesmitting on:?11/02/2024 12:02 PM EDT
--- OUTSIDE RECORDS SUMMARY | 2024-11-02 12:03 | XMS_ITS ---
Author Organization Aaron Rob MD Address [address] [place] [phone] Care Team Providers Care Composite Assembler Name Role Phone Aaron Rob Primary Care [...] Omeprazole 20 MG Take 1 capsule by [facility] once daily for 90 Active Synthroid 100 [...] kg/m2 10/11/2024 weight is down [address] [facility] e 07-06-24 Encounters Encounter Location Date Provider Diagnosis Aaron Rob MD [address] [place] [address] [place] [phone] 10/11/2024 Aaron Rob Atrophy of vagina N9 [...] Reason: Provider Name:Aaron deleon, 02/15/2025 10:15:00 AM, [address] [place] [address], [address], [place], [phone], Provider Name:Aaron deleon, 04/16/2025 07:30:00 AM, [address] [place] [address], [address], [place], [place], [phone], Provider Name:Aaron Atkinson ier, 10/08/2025 07:45:00 AM, [address], [address], [place], [place], [phone], Provider Name:Aaron Atkinson ier, 10/15/2025 09:30:00 AM, [address], [address], [place], [phone], Progress Notes * Selene BARRYDOB: [birth year] (69 yo F)Acc No.[id number]:10/11/2024 Patient:?Selene BARRY Provider:?Aaron Rob MD :1955???Age:69 Y???Sex:Female D ate:10/11/2024 Address:[address] [place], [place] [id number] Subjective: * Chief Complaints: * ???Comp visit [...] Marital status: . Travel outside of the [place]: no. * Medications:?TakingSynthroid 100 MCG Tablet [...] Objective: * Vitals:?Ht: 63.5, Wt: 183, B WV:31.91, BP:152/78, Repeat BP:140/70, Wt-k.01. weight is down [...] Blood Small (1+) A Negative - ?Specific [place] - Urine 1.015 1.005-1.025 - ?Urine Protein [...] Casts Urine 0-2 0-2 - /LPF ???Lab:Comprehensive [place]. P vandana Fast (Order Date - 10/04/2024) [...] organomegaly , no masses palpable.?RECTAL EXAM:?done by director of it operations.?FEMALE GENITOURINARY:?done by director of it operations.?EXTREMITIES:?no clubbing, cyanosis, or edema.?NEUROLOGIC:?nonfocal, motor strength normal [...] Rob MD Date:?0 10/11/2024 Generated for Julius pittman/Fito/Dionnaitting on:?11/02/2024 12:03 PM EDT History and Physical Notes * [...] or edema BREASTS: RECTAL EXAM: done by director of it operations FEMALE GENITOURINARY: done by director of it operations ORAL CAVITY: mucosa moist
--- OUTSIDE RECORDS SUMMARY | 2024-11-02 12:03 | XMS_ITS | Clinical Summary ---
Author Organization [employer] Address [address] [place] [address] [address] [place] [address] Care Team Providers Care First Helper Name Role Phone Unavailable Primary Care Provider [...] Recently Relevant to Health Maintenance Insurance MEDICARE [facility] MEDICAID [facility] ADULT
--- OUTSIDE RECORDS SUMMARY | 2024-11-02 12:03 | XMS_ITS ---
Author Organization Aaron Rob MD Address [address] [place] [id number] Care Team Providers Care [employer] Certified Internet[employer] Expert Name Role Phone Aaron Rob Primary Care Provider [phone] Results Component Value Reference Range Notes Complete Blood Count Auto Di ff Reviewed date:10/04/2024 06:46:14 PM Interpretation: Performing Lab:[facility], [address] [place] [phone] Notes/Report: White Blood Count 6.5 4.8-10.8 X10*3/uL [...] NRBC Abs Auto 0.000 0.0-0.012 X10*3/uL [facility]. Panel Fa st Reviewed date:10/05/2024 09:05:22 AM Interpretation: Performing Lab:[facility], [address] [place] [phone] Notes/Report: Sodium 144 135-145 mmol/L Potassium 3.9 [...] Panel Reviewed date:10/04/2024 06:22:42 PM Interpretation: Performing Lab:[facility], [address] [place] [phone] Notes/Report: Triglycerides 101 <150 mg/dL Desirable Triglyceride: [...] T4 Reviewed date:10/04/2024 06:24:59 PM Interpretation: Performing Lab:[address] [phone] Notes/Report: TSH reflex Free T4 0.34 0.32-4.0 uIU/mL Microalbumin, Random Reviewed date:10/04/2024 06:28:23 PM Interpretation: Performing Lab:[address] [phone] Notes/Report: Creatinine Urine 63.70 Microalbumin Urine 24.0 Microalbum/Creatinine Ratio Ur 37.6 <30 ug/mg cr Albumin/Creatinine Ratio Reference Ranges: Normal: < 30 ug/mg creatinine Microalbuminuria: 30 - 300 ug/mg creatinine Clinical Albuminuria: > 300 ug/mg creatinine Hemoglobin A1c Reviewed date:10/04/2024 06:25:17 PM Interpretation: Performing Lab:[facility], [address] [place] [phone] Notes/Report: Hemoglobin A1c % 5.8 <6.0 % [...] average glucose, using the formula of the A6O-Uyiwtkt Average Glucose study (ADAG), Diabetes Care, Vol.31,#8, Jan. 2007 UA ClnCatch+Micro w/rflx Cul t Reviewed date:10/05/2024 09:05:43 AM Interpretation: Performing Lab:[facility], [address] [place] [phone] Notes/Report: Urine, Clean Catch Color Urine Yellow Appearance Urine Clear PH 6.5 5.0-9.0 Glucose Urine UA Negative Negative mg/dL Urine Blood Small (1+) Negative Specific Duncan - Urine 1.015 1.005-1.025 Urine Protein Negative [...] Location Date Provider Diagnosis Aaron Rob MD [address] [place] [address] [address] [place], [place] [phone] 10/04/2024 Aaron Rob Essential hypertensi on I10 [...] 02/15/2025 10:15:00 AM, [address], Suite [facility], [place], [place], [id number], Provider Name:Aaron Atkinson ier, 04/16/2025 07:30:00 AM, [address], [address], [place], [place], [phone], Provider Name:Aaron Atkinson ier, 10/08/2025 07:45:00 AM, [address], Suite [facility], [place], [place], [phone], Provider Name:Aaron villar, 10/15/2025 09:30:00 AM, [address] [place] [address], Suite [facility], [place], [place], [id number], Progress Notes * BARRYGian GALLEGOSwhitneyDOB: [birth year] (69 yo F)Acc No.[id number]:10/04/2024 Progress Note Patient:?Selene BARRY Provider:?Aaron Rob MD :1955???Age:69 Y???Sex:Female D ate:10/04/2024 Address:[address] [place] [id number] Subjective: * Chief Complaints: * ???1. Yearly fasting labs. * Medical History:? Objective: * Vitals:? Assessment: * Assessment: 1.?Essential hypertension - I10 (Primary)???2.?Prediabetes - R73.09???3.?Lymphocytosis - D72.820???4.?Chronic systolic congestive heart failure - I50.22???5.?Hyperthyroidism - E05.90???6.?Hypercholesterolemia - E78.00??? Plan: * Treatment: 2.?Prediabetes?LAB: Complete Blood Count Auto Diff (Collection Date & Time - 10/04/2024 07:45 AM) ?LAB: [facility]. Panel Fast (Collection Date & Time - [...] Time - 10/04/2024 07:45 AM) ?LAB: [facility]. Panel Fast (Collection Date & Time - [...] Time - 10/04/2024 07:45 AM) ?LAB: [facility]. Panel Fast (Collection Date & Time - [...] & Time 10/04/2024 07:45 AM) ?LAB: [facility]. Panel Fast (Collection Date & Time 10/04/2024 [...] & Time 10/04/2024 07:45 AM) ?LAB: [facility]. Panel Fast (Collection Date & Time 10/04/2024 [...] Time - 10/04/2024 07:45 AM) * Procedure Codes:?34635 VENIP UNCT, ROUTINE* * * The named appointment provid er may or may not be the originator of this progress note, and it is not deemed complete until electronically signed by the appointment provider. Sign off status: Pending * Provider:?Aaron Rob MD Date:?0 10/04/2024 Generated for Julius pittman/Fito/Dionnaitting on:?11/02/2024 12:02 PM EDT
--- OUTSIDE RECORDS SUMMARY | 2024-11-02 12:04 | XMS_ITS | Patient Health Record ---
Author Organization Aaron Rob MD Address [address] [place] [phone] Care Team Providers Care Consumer Relations Complaint Clerk Name Role Phone Aaron Rob Primary Care Provider Allergies No Known Allergies Results Component Value Reference Range Notes UA ClnCatch+Micro w/rflx Cul t Reviewed date:11/12/2023 06:36:15 PM Interpretation: Performing Lab:[facility], [address] [place] [phone] Notes/Report: Urine, Clean Catch Color Urine Yellow Appearance Urine Clear PH 7.0 5.0-9.0 Glucose Urine UA Negative Negative mg/dL Urine Blood Negative Negative Specific Deane - Urine 1.015 1.005-1.025 Urine Protein Negative Neg-Trace mg/dL Urine Ketones Negative Negative mg/dL Nitrite Urine Negative Negative Leukocyte Esterase Urine Large (3+) Negative RBC Urine 0-2 0-2 /HPF WBC Urine 0-5 0-5 /HPF Squamous Epithelial Cell Urine 6-10 0-2 /HPF Bacteria Urine 1+ None Seen Hyaline Casts Urine 0-2 0-2 /LPF Liver Panel Reviewed date:06/04/2024 12:45:25 PM Interpretation: Performing Lab:[facility], [address] [place] [phone] Notes/Report: Bilirubin Total 0.9 0.0-1.0 mg/dL Bilirubin Direct 0.3 0.0-0.5 mg/dL Aspartate Amino Transferase 30 5-31 U/L Alanine Aminotransferase 16 0-31 U/L Total Protein 7.3 6.5-8.0 g/dL Albumin Level 4.0 3.5-5.0 g/dL Alkaline Phosphatase 122 39-117 U/L Glucose Fasting Reviewed date:06/04/2024 12:49:55 PM Interpretation: Performing Lab:[facility], [address] [place] [phone] Notes/Report: Glucose Fasting 109 60-99 mg/dL A fasting glucose from 100-125 mg/dl is considered impaired (pre-diabetes). Lipid Panel with Reflex Reviewed date:06/04/2024 12:45:35 PM Interpretation: Performing Lab:[facility], [address] [place] [phone] Notes/Report: Triglycerides 114 <150 mg/dL Desirable Triglyceride: [...] A1c Reviewed date:06/04/2024 12:44:41 PM Interpretation: Performing Lab:[facility], [address] [place] [phone] Notes/Report: Hemoglobin A1c % 5.3 <6.0 % [...] average glucose, using the formula of the A0T-Szgdfal Average Glucose study (ADAG), Diabetes Care, Vol.31,#8, 2007 Complete Blood Count Auto Di ff Reviewed date:10/04/2024 06:46:14 PM Interpretation: Performing Lab:[facility], [address] [place] [phone] Notes/Report: White Blood Count 6.5 4.8-10.8 X10*3/uL [...] NRBC Abs Auto 0.000 0.0-0.012 X10*3/uL Comprehensive [place]. Panel Fa st Reviewed date:10/05/2024 09:05:22 AM Interpretation: Performing Lab:[facility], [address] [place] [phone] Notes/Report: Sodium 144 135-145 mmol/L Potassium 3.9 [...] Panel Reviewed date:10/04/2024 06:22:42 PM Interpretation: Performing Lab:[facility], [address] [place] [phone] Notes/Report: Triglycerides 101 <150 mg/dL Desirable Triglyceride: [...] T4 Reviewed date:10/04/2024 06:24:59 PM Interpretation: Performing Lab:[facility], [address] [place] [phone] Notes/Report: TSH reflex Free T4 0.34 0.32-4.0 uIU/mL Microalbumin, Random Reviewed date:10/04/2024 06:28:23 PM Interpretation: Performing Lab:[facility], [address] [place] [phone] Notes/Report: Creatinine Urine 63.70 Microalbumin Urine 24.0 Microalbum/Creatinine Ratio Ur 37.6 <30 ug/mg cr Albumin/Creatinine Ratio Reference Ranges: Normal: < 30 ug/mg creatinine Microalbuminuria: 30 - 300 ug/mg creatinine Clinical Albuminuria: > 300 ug/mg creatinine Hemoglobin A1c Reviewed date:10/04/2024 06:25:17 PM Interpretation: Performing Lab:[facility], [address] [place] [phone] Notes/Report: Hemoglobin A1c % 5.8 <6.0 % [...] average glucose, using the formula of the C7Y-Oczvpzn Average Glucose study (ADAG), Diabetes Care, Vol.31,#8, Aug. 2007 UA ClnCatch+Micro w/rflx Cul t Reviewed date:10/05/2024 09:05:43 AM Interpretation: Performing Lab:[facility], [address] [place] [phone] Notes/Report: Urine, Clean Catch Color Urine Yellow Appearance Urine Clear PH 6.5 5.0-9.0 Glucose Urine UA Negative Negative mg/dL Urine Blood Small (1+) Negative Specific Deane - Urine 1.015 1.005-1.025 Urine Protein Negative Neg-Trace mg/dL Urine Ketones Negative Negative mg/dL Nitrite Urine Negative Negative Leukocyte Esterase Urine Trace Negative RBC Urine 11-20 0-2 /HPF WBC Urine 6-10 0-5 /HPF Squamous Epithelial Cell Urine 6-10 0-2 /HPF Bacteria Urine 3+ None Seen Hyaline Casts Urine 0-2 0-2 /LPF TSH reflex Free T4 Reviewed date:07/06/2024 05:11:26 PM Interpretation: Performing Lab:[facility], [address] [place] [phone] Notes/Report: TSH reflex Free T4 0.16 0.32-4.0 uIU/mL Urine Culture Reviewed date:11/12/2023 06:27:53 PM Interpretation: Performing Lab:[facility], [address] [place] [phone] Notes/Report: Urine Culture Report Result Urine Culture 10,000 to 50,000 cfu/ml Urine Culture Mixed bacterial herson a characteristic of Urine Culture urogenital contamination. Complete Blood Count Auto Di ff Reviewed date:01/23/2024 12:45:16 PM Interpretation: Performing Lab:[facility], [address] [place] [phone] Notes/Report: White Blood Count 6.1 4.8-10.8 X10*3/uL [...] te Reviewed date:01/23/2024 12:09:33 PM Interpretation: Performing Lab:[facility], [address] [place] [phone] Notes/Report: Erythrocyte Sedimentation Rate 2 0-20 MM/HR Patients with polycythemia and many hemoglobin abnormalities may have depressed sed rates whereas patients with anemia may have elevated sed rates. Comprehensive Met. Panel Reviewed date:01/23/2024 12:12:34 PM Interpretation: Performing Lab:[facility], [address] [place] [phone] Notes/Report: Sodium 141 135-145 mmol/L Potassium 4.0 3.3-5.1 mmol/L Chloride 110 96-108 mmol/L Carbon Dioxide 22 22-29 mmol/L Anion Gap 13 12-20 Blood Urea Nitrogen 20 9-16 mg/dL Creatinine 0.67 0.5-1.4 mg/dL Estimated Glomerular Filt Rate > 60 NOTE: For -Burmese individuals, multiply the result by 1.210. Chronic [...] Protein Reviewed date:01/23/2024 12:09:42 PM Interpretation: Performing Lab:[facility], [address] [place] [phone] Notes/Report: C Reactive Protein 0.22 < or = 0.50 mg/dL XR knee LT 3V Reviewed date:04/27/2024 05:15:34 PM Interpretation: Performing Lab: Notes/Report: [address] [place] [address] XRay Report Signed Patient: Selene Barry MR#: [id number] 3611 : 1955 Acct:[id number] Age/Sex: 68 / F ADM Date: 02/03/24 Loc: CARMEL Attending Dr: Kasey Wesley CASHIER RECEPTIONIST Ordering Physician: Kasey Wesley Date of Service: 02/03/24 Procedure(s): XR knee LT 3V Accession Number(s): [id number] cc: Aaron Rob MD; Kasey Wesley EXAMINATION: [...] 04/27/24 1138 DD/ 0954 TD/TT: 02/03/24 1022 Anthropologist Physical: [address] [address] XRay Report Signed Patient: Selene Barry MR#: [id number] 3611 : 1955 Acct:[id number] Age/Sex: 68 / F ADM Date: 02/03/24 Loc: HOZuleykaXRAY Attending Dr: Kasey LUKE Ordering Physician: Kasey Wesley Date of Service: 02/03/24 Procedure(s): XR kne e LT 3V Accession Number(s): [id number] cc: Aaron Rob MD; Kasey Wesley EXAMINATION: [...] 04/27/24 1138 DD/ 0954 TD/TT: 02/03/24 1022 Anthropologist Physical: XR foot LT min 3V Reviewed date:04/27/2024 11:59:11 AM Interpretation: Performing Lab: Notes/Report: [address] [address] XRay Report Signed Patient: Selene Barry MR#: [id number] 3611 : 1955 Acct:[id number] Age/Sex: 68 / F ADM Date: 02/03/24 Loc: HOZuleykaXRANNIKA Attending Dr: Kasey LUKE Ordering Physician: Kasey Wesley Date of Service: 02/03/24 Procedure(s): XR foot LT min 3V Accession Number(s): [id number] cc: Aaron Rob MD; Kasey Wesley EXAMINATION: [...] 04/27/24 1045 DD/ 0954 TD/TT: 02/03/24 1022 Anthropologist Physical: [place] [address] XRay Report Signed Patient: Selene Barry MR#: [id number] 3611 : 1955 Acct:[id number] Age/Sex: 68 / F ADM Date: 02/03/24 Loc: CARMEL Attending Dr: Kasey LKUE Ordering Physician: Kasey Wseley Date of Service: 02/03/24 Procedure(s): XR sea t LT min 3V Accession Number(s): [id number] cc: Aaron Rob MD; Kasey Wesley EXAMINATION: [...] 04/27/24 1045 DD/ 0954 TD/TT: 02/03/24 1022 Anthropologist Physical: XR lumbar spine 4V min Reviewed date:04/11/2024 06:48:51 PM Interpretation: Performing Lab: Notes/Report: [address] [address] XRay Report Signed Patient: Selene Barry MR#: [id number] 3611 : 1955 Acct:[id number] Age/Sex: 68 / F ADM Date: 02/03/24 Loc: CARMEL Attending Dr: Kasey LUKE Ordering Physician: Kasey Wesley Date of Service: 02/03/24 Procedure(s): XR lumbar spine 4V min Accession Number(s): [id number] cc: Aaron Rob MD; Kasey Wesley EXAMINATION: XR LUMBOSACRAL SPINE CLINICAL INFORMATION: Spondylosis, without myelopathy or radiculopathy. COMPARISON: MRI lumbar spine dated 07/07/2011 2012 lumbar spine radiographs dated 11/26/2010. [...] 04/09/24 0840 DD/ 0954 TD/TT: 02/03/24 1022 Anthropologist Physical: [place] [address] XRay Report Signed Patient: Selene Barry MR#: [id number] 3611 : 1955 Acct:[id number] Age/Sex: 68 / F ADM Date: 02/03/24 Loc: CARMEL Attending Dr: Kasey LUKE Ordering Physician: Kasey Wesley Date of Service: 02/03/24 Procedure(s): XR lum bar spine 4V min Accession Number(s): [id number] cc: Aaron Rob MD; Kasey Wesley EXAMINATION: [...] severe thoracolumbar rotatory levoscoliosis. There is mild risk assessment consultant ior disc space narrowing at T12-L1 and [...] 04/09/24 0840 DD/ 0954 TD/TT: 02/03/24 1022 Anthropologist Physical: RONALD MR lumbar spine wo con Reviewed date:03/15/2024 12:30:31 PM Interpretation: Performing Lab: Notes/Report: [address] [address] Magnetic Resonance Report Signed Patient: Selene Barry MR#: [id number] 3611 : 1955 Acct:[id number] Age/Sex: 68 / F ADM Date: 03/14/24 Loc: HO.MRI Attending Dr: Kasey LUKE Ordering Physician: Kasey Wesley Date of Service: 03/14/24 Procedure(s): MR lumbar spine wo con Accession Number(s): [id number] cc: Aaron Rob MD; Kasey Wesley EXAMINATION: [...] OV> 03/15/24 1001 DD/ 10 TD/TT: 03/14/242027 Anthropologist Physical: [place] [address] Magnetic Resonance Report Signed Patient: Selene Barry MR#: [id number] 3611 : 1955 Acct:[id number] Age/Sex: 68 / F ADM Date: 03/14/24 Loc: HO.MRI Attending Dr: Kasey LUKE Ordering Physician: Kasey Wesley Date of Service: 03/14/24 Procedure(s): MR lum bar spine wo con Accession Number(s): [id number] cc: Aaron Rob MD; Kasey Wesley EXAMINATION: [...] OV> 03/15/24 1001 DD/ 10 TD/TT: 03/14/242027 Anthropologist Physical: MARIA ISABEL MM tomosynthesis screening B I Reviewed date:03/28/2024 03:56:48 PM Interpretation: Performing Lab: Notes/Report: [facility] [address] [place], [place] [address] Mammography Report Signed Patient: Selene Barry MR#: [id number] 3611 : 1955 Acct:[id number] Age/Sex: 68 / F ADM Date: 03/16/24 Loc: HO.MAMMO Attending Dr: Power Becker MD Ordering Physician: Poewr Becker MD Results: 1Negativ e Date of Service: 03/16/24 Follow Up: 1 Year From Orig ina Mammogram Procedure(s): MM tomosynthesis screening BI Accession Number(s): [id number] cc: Aaron Rob MD; Power Becker MD [...] Viera DO in OV> 03/28/24 1159 DD/ 9 TD/TT: 03/16/24 0840 Anthropologist Physical: [facility] [address] [place], [place] [address] Mammography Report Signed Patient: Selene Barry MR#: [id number] 3611 : 1955 Acct:[id number] Age/Sex: 68 / F ADM Date: 03/16/24 Loc: HO.MAMMO Attending Dr: Power Becker MD Ordering Physician: Power Becker MD Results: 1Negativ e Date of Service: 03/16/24 Follow Up: 1 Year From Orig inal Mammogram Procedure(s): MM tomosynthesis screening BI Accession Number(s): [id number] cc: Aaron Rob MD; Power Becker MD [...] Viera DO in OV> 03/28/24 1159 DD/ TD/TT: 03/16/24 0840 Anthropologist Physical: XR DEXA axial skeleton Reviewed date:04/03/2024 02:11:53 PM Interpretation: Performing Lab: Notes/Report: [facility] [address] [place], [place] [address] Mammography Report Signed Patient: Selene Barry MR#: [id number] 3611 : 1955 Acct:[id number] Age/Sex: 68 / F ADM Date: 03/16/24 Loc: HO.MAMMO Attending Dr: Power Becker MD Ordering Physician: Power Becker MD Results: Date of Service: 03/16/24 Follow Up: Procedure(s): XR DEXA axial skeleton Accession Number(s): [id number] cc: Aaron Rob MD; Power Becker MD EXAMINATION: BONE DENSITOMETRY CLINICAL INDICATION: Menopause. COMPARISON: Previous BD dated 10/09/2021 and baseline BD dated 10/05/2016. TECHNIQUE: Using a [employer] DXA System (software version: 13.1) manufactured by [employer], dual-energy x-ray absorptiometry was performed of the [...] signed by Nelson Newby MD in OV> 04/03/2439 DD/ 0845 TD/TT: 03/16/24 09 Anthropologist Physical: [facility] [address] [place], [place] [address] Mammography Report Signed Patient: Selene Barry MR#: [id number] 3611 : 1955 Acct:[id number] Age/Sex: 68 / F ADM Date: 03/16/24 Loc: HO.MAMMO Attending Dr: Power Becker MD Ordering Physician: Power Becker MD Results: Date of Service: 03/16/24 Follow Up: Procedure(s): XR DEX A axial skeleton Accession Number(s): [id number] cc: Aaron Rob MD; Power Becker MD EXAMINATION: BONE DENSITOMETRY CLINICAL INDICATION: Menopause. COMPARISON: Previous BD dated 10/09/2021 and baseline BD dated 10/05/2016. TECHNIQUE: Using a [email or web address] Advance DXA System (software version: 13.1) manufactured [employer], dual-energy x-ray absorptiometry was performed of the [...] 04/03/24 0839 DD/ 0845 TD/TT: 03/16/24 0900 Anthropologist Physical: HS MR thoracic spine wo con Reviewed date:04/04/2024 06:26:06 PM Interpretation: Performing Lab: Notes/Report: [address] [address] Magnetic Resonance Report Signed Patient: Selene Barry MR#: [id number] 3611 : 1955 Acct:[id number] Age/Sex: 68 / F ADM Date: 04/02/24 Loc: HO.MRI Attending Dr: Osmel MARADIAGA Ordering Physician: Osmel Mckoy Date of Service: 04/02/24 Procedure(s): MR thoracic spine wo con Accession Number(s): [id number] cc: Aaron Rob MD; Osmel Mckoy EXAMINATION: [...] 04/03/24 1509 DD/ 1830 TD/TT: 04/02/24 1855 Anthropologist Physical: [place] [address] Magnetic Resonance Report Signed Patient: Selene Barry MR#: [id number] 3611 : 1955 Acct:[id number] Age/Sex: 68 / F ADM Date: 04/02/24 Loc: HO.MRI Attending Dr: Osmel MARADIAGA Ordering Physician: Osmel Mckoy Date of Service: 04/02/24 Procedure(s): MR thoracic spine wo con Accession Number(s): [id number] cc: Aaron Rob MD; Osmel Mckoy EXAMINATION: [...] 04/03/24 1509 DD/ 1830 TD/TT: 04/02/24 1855 Anthropologist Physical: Complete Blood Count Auto Di ff Reviewed date:05/03/2024 12:29:13 PM Interpretation: Performing Lab:[facility], [address] [place] [phone] Notes/Report: White Blood Count 6.5 4.8-10.8 X10*3/uL [...] te Reviewed date:05/03/2024 12:46:33 PM Interpretation: Performing Lab:[facility], [address] [place] [phone] Notes/Report: Erythrocyte Sedimentation Rate 5 0-20 MM/HR Patients with polycythemia and many hemoglobin abnormalities may have depressed sed rates whereas patients with anemia may have elevated sed rates. Comprehensive Met. Panel Reviewed date:05/03/2024 12:46:22 PM Interpretation: Performing Lab:[facility], [address] [place] [phone] Notes/Report: Sodium 141 135-145 mmol/L Potassium 4.5 3.3-5.1 mmol/L Slight Hemolysis.Interpret result with caution. Chloride 108 96-108 mmol/L Carbon Dioxide 21 22-29 mmol/L Anion Gap 17 12-20 Blood Urea Nitrogen 15 9-16 mg/dL Creatinine 0.60 0.5-1.4 mg/dL Estimated Glomerular Filt Rate > 60 NOTE: For -Burmese individuals, multiply the result by 1.210. Chronic [...] Protein Reviewed date:05/03/2024 12:28:49 PM Interpretation: Performing Lab:[facility], [address] [place] [phone] Notes/Report: C Reactive Protein 0.61 < or = 0.50 mg/dL Hepatitis A,B,C Profile Reviewed date:05/03/2024 12:28:29 PM Interpretation: Performing Lab:[facility], [address] [place] [phone] Notes/Report: Hepatitis A Antibody IgM Nonreactive Nonreactive [...] TB Reviewed date:05/06/2024 12:59:20 PM Interpretation: Performing Lab:[facility], [address] [place] [phone] Notes/Report: TSpotTB Negative Negative A negative test [...] Passed For additional information, please refer to http://education.[employer].ESTmob/fa q/ULH367 (This link is being provided for informational/ educational purposes only.) THIS TEST WAS PERFORMED AT: [facility]/[address] RACHELL OLIVAREZ MD,PHD CT lumbar spine wo con Reviewed date:07/23/2024 05:20:34 PM Interpretation: Performing Lab: Notes/Report: [address] [address] [address] Scan Report Signed Patient: Selene Barry MR#: [id number] 3611 : 1955 Acct:[id number] Age/Sex: 69 / F ADM Date: 05/11/24 Loc: HO.CT Attending Dr: Osmel MARADIAGA Ordering Physician: Osmel Mckoy Date of Service: 11/15/24 Procedure(s): CT lumbar spine wo IV con Accession Number(s): [id number] cc: Aaron Rob MD; Osmel Mckoy Report Number: [id number]: Total DLP = 681.00 mGy-cm EXAMINATION: CT [...] 07/23/2024 04:41 AM EST Dictated By: Marito Benitze DO Signed By: <Electronically signed by Marito Benitez DO in OV> 07/23/24 0441 DD/ 1318 TD/TT: 05/11/24 1345 Anthropologist Physical: [place] [address] [address] [address] Scan Report Signed Patient: Selene Barry MR#: [id number] 3611 : 1955 Acct:[id number] Age/Sex: 69 / F ADM Date: 05/11/24 Loc: HO.CT Attending Dr: Osmel MARADIAGA Ordering Physician: Osmel Mckoy Date of Service: 05/11/24 Procedure(s): CT lum bar spine wo IV con Accession Number(s): [id number] cc: Aaron Rob MD; Osmel Mckoy Report Number: [id number]: Total DLP = 681.00 mGy-cm EXAMINATION: CT [...] of S1. 1. No evidence of [place] fracture or traumatic subluxation of the lumbar [...] 07/23/24 0441 DD/ 1318 TD/TT: 05/11/24 1345 Anthropologist Physical: KYAW Monsivais Reviewed date:06/04/2024 12:48:56 PM Interpretation: Performing Lab:[facility], [address] [place] [phone] Notes/Report: Afshan Monsivais See Note Specimen held untested for 24 hours; Call to request Chemistry testing. XR chest 2V Reviewed date:07/06/2024 12:50:13 PM Interpretation:CBACK 07/06/24 Performing Lab: Notes/Report: [address] [address] XRay Report Signed Patient: Selene Barry MR#: [id number] 3611 : 1955 Acct:[id number] Age/Sex: 69 / F ADM Date: 06/29/24 Loc: CARMEL Attending Dr: Aaron Rob MD Ordering Physician: Aaron Rob MD Date of Service: 06/29/24 Procedure(s): XR chest 2V Accession Number(s): [id number] cc: Aaron Rob MD CLINICAL HISTORY: Acute [...] 07/02/24 1055 DD/ 1055 TD/TT: 07/02/24 1055 Anthropologist Physical: [address] [address] XRay Report Signed Patient: Selene Barry MR#: [id number] 3611 : 1955 Acct:[id number] Age/Sex: 69 / F ADM Date: 06/29/24 Loc: HO.XRAY Attending Dr: Aaron Rob MD Ordering Physician: Aaron Rob MD Date of Service: 06/29/24 Procedure(s): XR tigist st 2V Accession Number(s): [id number] cc: Aaron Rob MD CLINICAL HISTORY: [place] URI Chest two views Comparison: None Findings: [...] 07/02/24 1055 DD/ 1055 TD/TT: 07/02/24 1055 Anthropologist Physical: Free T4 (Free Thyroxine) Reviewed date:07/06/2024 05:11:14 PM Interpretation: Performing Lab:[facility], [address] [place] [phone] Notes/Report: Free T4 (Free Thyroxine) 1.31 0.71-1.85 ng/dL Afshan Monsivais Reviewed date:07/06/2024 01:24:48 PM Interpretation: Performing Lab:[facility], [address] [place] [phone] Notes/Report: Afshan Monsivais See Note Specimen held untested for 24 hours; Call to request Chemistry testing. Afshan Monsivais Reviewed date:10/04/2024 06:20:14 PM Interpretation: Performing Lab:[facility], [address] [place] [phone] Notes/Report: Afshan Monsivais See Note Specimen held untested for 24 hours; Call to request Chemistry testing. Urine Culture Reviewed date:10/05/2024 09:02:59 AM Interpretation: Performing Lab:[facility], [address] [place] [phone] Notes/Report: Urine Culture No growth. XR chest 2V Reviewed date:10/19/2024 10:26:20 AM Interpretation: Performing Lab: Notes/Report: [address] [address] XRay Report Signed Patient: Selene Barry MR#: [id number] 3611 : 1955 Acct:[id number] Age/Sex: 69 / F ADM Date: 10/17/24 Loc: CARMEL Attending Dr: Aaron Rob MD Ordering Physician: Aaron Rob MD Date of Service: 10/17/24 Procedure(s): XR chest 2V Accession Number(s): [id number] cc: Aaron oRb MD CLINICAL HISTORY: MILD INTERMITTENT ASTHMA --- Additional Notes or Special Instructions: WO 2 view chest x-ray. Comparison: CR/SR - XR CHEST 2V - 06/29/24 13:38 EST Findings: The lungs are adequately expanded. No focal consolidation. No effusion or pneumothorax. Cardiac and mediastinal contours are stable. No acute osseous abnormality Impression: No acute process. This document has been electronically signed by: Romario Winters MD on 10/18/2024 21:55:08 Dictated By: Romario Winters MD Signed By: <Electronically signed by Romario Winters MD in OV> 10/18/242154 DD/ 54 TD/TT: 10/18/242154 Anthropologist Physical: [address] [address] XRay Report Signed Patient: Selene Barry MR#: [id number] 3611 : 1955 Acct:[id number] Age/Sex: 69 / F ADM Date: 10/17/24 Loc: CARMEL Attending Dr: Aaron Rob MD Ordering Physician: Aaron Rob MD Date of Service: 10/17/24 Procedure(s): XR tigist st 2V Accession Number(s): [id number] cc: Aaron Rob MD CLINICAL HISTORY: [place] LD INTERMITTENT ASTHMA --- Additional Notes or Special Instructions: WO 2 view chest x-ray. Comparison: CR/SR - XR CHEST 2V - 06/29/24 13:38 EST Findings: The lungs are adequa tely expanded. No focal consolidati on. No effusion or pneumothorax. Cardiac and mediasti nal contours are stable. No acute osseous abnormality Impression: No acute process. This document has be en electronically signed by: Romario Winters MD on 10/18/2024 21:55:08 Dictated By: Romario Winters MD Signed By: <Electronically signed by Romario Winters MD in OV> 10/18/242154 DD/ 54 TD/TT: 10/18/242154 Anthropologist Physical: Reason For Referral Reason osteoporosis Diagnosis 1 Age-related osteopor osis without current pathological fracture (M81.0) Referral Organization Aaron Rob MD Referring Provider First Name Aaron Referring Provider Last Name Darron Referring Provider Speciality Internal M edicine Referred Provider Angelo Andrew Referred Provider Specialty Endocrinolog y General Notes Ursula Tracy 0 07/26/2024 03:26:47 PM >info faxed with [facility] office note Referral Priority Routine [...] Omeprazole 20 MG Take 1 capsule by [facility] once daily for 90 [...] W/U Status Risk Notes Problem Hypercoagulable state (87238952) Secondary hypercoagulable state (289.82) Active confirmed Problem Spinal stenosis (724.00) Active confirmed Problem 50409143 Age-related osteoporosis without current pathological fracture (M81.0) Active confirmed Problem 354788691 Thyroid nodule (E04.1) Active confirm ed Problem 32129822 Lymphocytosis (D72.820) Active confirmed Problem 554640763582729 USP (curre nt) use of systemic steroids (Z79.52) Active confirmed Problem 89496067 Lumbar disc dise ase (M51.9) Active confirmed Problem 05781166 Essential hypert ension (I10) Active confirmed Problem 095083826 Mild intermitten t asthma without complication (J45.20) Active confirmed Problem 9919492 Prediabetes (R73.09) Active confirmed Problem 817440698 Chronic systolic congestive heart failure (I50.22) Active confirmed Problem 01106110 Hyperthyroidism (E05.90) Active confirmed Problem 790215479 Rheumatoid arthr itis involving multiple sites, 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) Active confirmed Problem 755699409 Graves disease (E05.00) Active confirmed Problem 265071713 History of coron [place] artery bypass graft (Z95.1) Active confirmed Problem 5048181 Thyromegaly (E04.9) Active confirmed Problem [id number] Non-rheumatic mi tral regurgitation (I34.0) Active confirmed Problem 901933564 Thyroid cancer (C73) Active confirmed Problem 487297525 Vaginal bleeding (N93.9) Active confirmed Problem 22596032 Sciatica of righ t side (M54.31) Active confirmed Problem 47977806 Hypercholesterol emia (E78.00) Active confirmed Problem 2379687760328 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) Active confirmed Problem 412342928 Atrophy of vagin a (N95.2) Active confirmed Problem 523697385 Vaginal prolapse (N81.10) Active confirmed Vital Signs Blood pressure diastolic 78 mm Hg 10/11/2024 doroteo ght is down 6 pounds since 07-06-24 Height 63.5 in 10/11/2024 weight is down 6 pounds since 07-06-24 Blood pressure systolic 152 mm Hg 10/11/2024 weig ht is down 6 pounds since 07-06-24 Weight 183 lbs 10/11/2024 weight is down 6 pounds since 07-06-24 BMI 31.91 kg/m2 10/11/2024 weight is down 6 pounds since 07-06-24 Encounters Encounter Location Date Provider Diagnosis Aaron Rob MD [address] [place], [place] [id number] 11/11/2023 Aaron Rob Hematuria, unspecifi ed type R31.9 Aaron Rob MD [address] [place] [id number] 06/04/2024 Aaron Rob Prediabetes R73.09 a nd Hypercholesterolemia E78.00 Aaron Rob MD [address] [place] [id number] 10/04/2024 Aaron Rob Essential hypertensi on I10 ; Prediabetes R73.09 ; Lymphocytosis D72.820 ; Chronic systolic congestive heart failure I50.22 ; Hyperthyroidism E05.90 and Hypercholesterolemia E78.00 Aaron Rob MD [address] [place] [id number] 04/16/2024 Aaron Rob Encounter for administration of vaccine Z23 Aaron Rob MD [address] [place] [address] [id number] 06/11/2024 Aaron Rob Vaginal prolapse N81 .10 ; Essential hypertension I10 and Rheumatoid arthritis involving multiple sites, unspecified rheumatoid factor presence M06.9 Aaron Rob MD [address] [place] [address] [id number] 06/21/2024 Aaron Rob Mild intermittent as thma without complication J45.20 Aaron Rob MD [address] [place] [id number] 06/29/2024 Aaron Rob Acute URI J06.9 Aaron Rob MD [address] [place] [address] [id number] 07/06/2024 Aaron Rob Mild intermittent as thma without complication J45.20 ; Hyperthyroidism E05.90 and Pneumonitis, interstitial J84.89 Aaron Rob MD [address] [place] [address] [id number] 10/11/2024 Aaron Rob Atrophy of vagina N9 [...] J06.9) THE XRAY ORDER WAS FAXED TO [facility] PATIENT REG. PATIENT AWARE, patient verbalized understanding [...] - N81.10) is going to have surgery 10/04/2024 Prediabetes (ICD-10 - R73.09) 06/11/2024 Essential [...] LAT 08/03/2024 Next Appt Details Provider Name:Aaron deleon, 02/15/2025 10:15:00 AM, [address] [place] [address], [phone], Provider Name:Aaron deleon, 04/16/2025 07:30:00 AM, [address] [place] [address], [phone], Provider Name:Aaron deleon, 10/08/2025 07:45:00 AM, [address] [place] [address], [phone], Provider Name:Aaron deleon, 10/15/2025 09:30:00 AM, [address] [place] [address], [address], [id number], Insurance Providers Payer Name Payer Address Payer Phone Subscriber Number Group Number Insured Name Patient Relationship to Insured Coverage Start Date Coverage End Date MEDICARE NHIC CECE [address] [place] [address] [id number] Selene Valdovinos Self - patient is the insured [place] [id number] Selene Valdovinos Self - patient is the insured Medical (General) History Medical History History ICD Code colonoscopy - 03/2008 hyperp lastic polyp due 03/[address] Lan; Colonoscopy done 07/14/[address] Lan - repeat 10 years PATIENT SAFETY OFFICER appt 06/04/13 at [facility] hematuria w/u 2017 08/21/2019 Total Thyroidectomy Pulmonary nodule R91.1 nodule evaluated and no need for further eval 2017 Surgical History Surgery Date(Month/Year) L3-4, L4-5 Decompression 03/2014 Total Thyroidectomy 07/2019
[2024-11-02 12:24] LABS: Basophils Absolute Auto 0.1 X10*3/uL (0.0-0.2); Basophils Percent Auto 0.8 % (0-2); Eosinophils Absolute Auto 0.2 X10*3/uL (0.0-0.4); Eosinophils Percent Auto 2.5 % (0-4); Hematocrit 41.3 % (37.0-47.0); Hemoglobin 13.9 g/dl (12.0-16.0); Imm Gran Abs Auto 0.03 X10*3/uL (0.00-0.03); Imm Gran Pct Auto 0.4 % (0.0-0.4); Lymphocytes Percent Auto 37.5 % (20-40); Mean Corpuscular HGB Conc 33.7 g/dl (31.0-35.0); Mean Corpuscular Hemoglobin 27.4 pg (27.0-33.0); Mean Corpuscular Volume 81.3 fL (80.0-98.0); Mean Platelet Volume 10.7 fL (9.4-12.3); Monocytes Absolute Auto 0.6 X10*3/uL (0.1-1.2); Monocytes Percent Auto 7.6 % (2-11); Neutrophils Percent Auto 51.2 % (45-73); Platelet Count 244 X10*3/uL (160-400); Red Blood Count 5.08 X10*6/uL (4.20-5.50); Red Cell Distribution Width 12.8 % (11.0-16.0); White Blood Count 7.9 X10*3/uL (4.8-10.8)
[2024-11-02 12:47] LABS: Alanine Aminotransferase 13 U/L (0-31); Albumin Level 4.1 g/dL (3.5-5.0); Alkaline Phosphatase 156 U/L (39-117); Anion Gap 10 (12-20); Aspartate Amino Transferase 17 U/L (5-31); Blood Urea Nitrogen 14 mg/dL (9-16); C Reactive Protein 1.94 mg/dL (< or = 0.50); Calcium 9.2 mg/dL (8.4-10.2); Carbon Dioxide 28 mmol/L (22-29); Chloride 100 mmol/L (96-108); Estimated Glomerular Filt Rate > 60; Glucose Random 337 mg/dL (60-115); Potassium 4.3 mmol/L (3.3-5.1); Sodium 134 mmol/L (135-145); Total Protein 7.5 g/dL (6.5-8.0)
[2024-11-02 13:17] LABS: Erythrocyte Sedimentation Rate 12 MM/HR (0-20)
== END 2024-11-02 11:36 | disposition home or self-care (01) ==
LOC: HO.LAB 11:35
PROVIDERS: PCP Internal Medicine; Visit Provider Student in an Organized Health Care Education/Training Program
DX: M06.9 Rheumatoid arthritis, unspecified (principal); M05.9 Rheumatoid arthritis with rheumatoid factor, unspecified
CPT/HCPCS: 36415; 80053; 85025; 85652; 86140

== ENCOUNTER 2024-11-05 15:17 | Outpatient (AMB) | payer MEDICARE, MEDICAID, SELFPAY ==
--- NOTE | 2024-11-05 15:19 | MHC.OFFVIS ---
Vital Signs 11/05/24 15:20 Height 5 ft 3 in Weight 180 lb 8.937 oz BMI 32.0 BP 130/72 Blood Pressure Location Lt brachial Position Sitting Pulse 69 Pulse Source Pulse Oximeter Pulse Oximetry (%) 98 Oxygen Delivery Method Room Air Intake Visit Reasons: RA Intake Note: Patient presents for RA follow up today and lab review. Patient states she is not feeling well, nauseous. She also stopped taking Enbrel because it causes her more pain. Allergies No Known Allergies [No Known Allergies*] Allergy (Verified 11/05/24 15:23) HPI Comments Details: Patient is a 69-year-old female with hypertension, hyperlipidemia, hypothyroidism, polyarticular osteoarthritis, osteopenia, and seropositive rheumatoid arthritis here today for follow up Interval History: Patient last seen 05/04/[address] Conway. At that time she was following up for her seropositive rheumatoid arthritis on Enbrel. She also was following up for her generalized osteoarthritis. She stated that the Enbrel works well during the 1st 5-6 days however she subsequently starts to have generalized pain. Given that there is a waning of effect at the 5-6 days they had a discussion about changing medication to had deferred TNF inhibitor however patient declined. Patient self discontinued at the end of August because it was not effective Currently only on Tylenol arthritis Is scheduled for back surgery this month and so would like to remain off the medication Rheumatologic History: +RF++CCP dx 2016 Leflunomide 2016 Plaquenil 2017 Humira January 2019 - October 2019 Methotrexate October 2018-September 2020-self stopped Xeljanz October 2019- September 2020- self stopped Kevzara- September 2020- October 2021- active disease on exam Actemra- October 2021- January 2022-low WBC, PLTS and absolute neutraphils Enbrel September 2018-December 2018- restarted February 2022 (on Hold for right arthroplasty on Jun 22) restarted July 2022 effective Current Rheumatology Medication(s): Enbrel 50mg SC weekly (no longer taking) [facility] Medical History (Updated 11/05/24 @ 15:46 by Katelynn Garcia MD) Rheumatoid arthritis Osteopenia Scoliosis Long-term use of immunosuppressant medication Personal history of COVID-19 Hx of thyroid cancer Non-rheumatic mitral regurgitation Essential hypertension Atherosclerotic cardiovascular disease detention 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 Seropositive rheumatoid arthritis Coronary arteriosclerosis Surgical History (Updated 10/31/24 @ 10:49 by Milagros Neumann, ALOK) Hx of thyroidectomy (~2019) Hx of total knee replacement (06/22/22) Hx of bilateral cataract extraction Hx of colonoscopy History of back surgery Status post coronary artery bypass graft Family History Mother HTN (hypertension) Social History (Updated 10/31/24 @ 10:59 by Milagros Neumann, RN) Household Members: Spouse Housing: Apartment Are you a primary human services care specialist to a significant other at home: No Do you presently have visiting nurse or other home services: No 75 years or older and lives alone: No Alcohol intake: current Alcohol intake frequency: holidays/special occasions only Alcohol type: wine Comment: bathroom only, aware of trip hazards Patient Tobacco Use Status: Former Tobacco user Tobacco use type: Cigarette Use of substances other than those prescribed or required for medical reasons: No Healthcare Proxy: Yes (will bring copy dos) Female Reproductive History Menstrual Age of Menarche: 12 Review of Systems Const Details: Review of Systems Constitutional: Denies fever, chills, weight loss ENT: Denies vision changes, eye pain or eye redness, dental caries, dry mouth GI: Denies nausea, vomiting, diarrhea, abdominal pain, change in BM Pulm: Denies SOB, DAVID, hemoptysis, wheezing Cards: Denies chest pain, palpitations Skin: Denies Raynaud's, rash, nail changes, photosensitivity, FONDANT COOKER: Denies headaches, weakness, paresthesias, recurrent falls MSK: as per HPI All other systems reviewed and are unremarkable except noted above Physical Exam Vital Signs: Last Vital Signs Pulse 69 11/05/24 15:20 BP 130/72 11/05/24 15:20 Pulse Ox 98 11/05/24 15:20 Oxygen Delivery Method Room Air 11/05/24 15:20 BMI result Body Mass Index 32.0 Vital signs reviewed Physical Examination CONSTITUITIONAL Patient alert and cooperative. Well appearing and in no apparent painful distress HEENT Conjunctiva and sclera clear. ?Pupils equal round and reactive to light. ?No lymphadenopathy. ? CHEST/RESPIRATORY SYSTEM Normal respiratory effort and able to speak in complete sentences. ?Clear to auscultation bilaterally. ?No crackles, rales, rhonchi, wheezes heard. CARDIAC SYSTEM Regular rate and rhythm. ?S1 and S2 heard no murmurs. ?Radial pulses intact bilaterally MSK Hands: ?Able to make a fist. No synovitis noted to the MCPs, PIPs or DIPs. ?No tenderness to palpation of these joints. No deformities noted. ? Wrists: ?Full range of motion at the wrists without pain. ?No tenderness to palpation or synovitis noted to the wrists. Elbows: Full range of motion without pain. No tenderness, weakness, swelling, increased warmth or erythema. Shoulders: Full range of active range of motion without pain. No tenderness, weakness, swelling, increased warmth or erythema. Hips: Full range of motion without pain. Hip bursa: No tenderness to palpation Knees: ?Full range of motion. ?No tenderness, swelling, increased warmth or erythema.?No effusion or crepitations Ankles: Full range of motion. ?No tenderness, swelling, increased warmth or erythema.? Feet: ?Negative squeeze test. ?No tenderness to palpation or swelling of the MTPs. Tender points:?No tenderness to palpation of the bilateral trapezius, supraspinatus, greater trochanters, anterior costochondral junctions, bilateral gluteal areas, bilateral suboccipital muscle insertions SKIN Skin intact without rashes. Results Reviewed Results Reviewed: Laboratory Tests 11/02/24 12:00 WBC 7.9 RBC 5.08 Hgb 13.9 Hct 41.3 Plt Count 244 ESR 12 Sodium 134 L Potassium 4.3 Chloride 100 Carbon Dioxide 28 BUN 14 Creatinine 0.76 AST 17 ALT 13 Infectious Serologies 05/03/24 10:03 Hepatitis A IgM Ab Nonreactive Hep Bs Antigen Negative Hep Bs Antibody NONREACTIVE Hep B Core Total Ab Nonreactive Hepatitis C Ab (EIA) Nonreactive TB Test (T-Spot) Com Negative Assessment & Plan Assessment & Plan (1) Seropositive rheumatoid arthritis: Comment: +RF++CCP dx 2016 Leflunomide 2016 Plaquenil 2017 Humira January 2019 - October 2019 Methotrexate October 2018-September 2020-self stopped Xeljanz October 2019- September 2020- self stopped Kevzara- September 2020- October 2021- active disease on exam Actemra- October 2021- January 2022-low WBC, PLTS and absolute neutraphils Enbrel September 2018-December 2018- restarted February 2022 (on Hold for right arthroplasty on Jun 22) restarted July 2022 effective Code(s): M05.9 - Rheumatoid arthritis with rheumatoid factor, unspecified Category: Medical Plan: #Seropositive RA Patient is a 69-year-old female with seropositive rheumatoid arthritis here today for follow up. No evidence of active synovitis on exam today off Enbrel. We will monitor off immunosuppression for now and revisit after her back surgery to determine need for immunosuppression Plan - Monitor off immunosuppression - RTC 4 months - Labs before visit: CBC, CMP, ESR, CRP, hepatitis panel, T spot Plan I spent 20 minutes reviewing the record and labs, taking a history, examining the patient, discussing the treatment plan, ordering diagnostic work up and documenting in the medical record Coding Level of Care Code Est Pt Level 3 (86049) Diagnoses Seropositive rheumatoid arthritis M05.9
[2024-11-05 15:20] VITALS: BP 130/72; PULSE 69; O2SAT 98; BMI 32.0
--- OUTSIDE RECORDS SUMMARY | 2024-11-05 15:21 | XMS_ITS ---
Author Organization Aaron Rob MD Address [address] [place] [phone] Care Team Providers Care Morning Caregiver Name Role Phone Aaron Rob Primary Care Provider Results Component Value Reference Range Notes Complete Blood Count Auto Di ff Reviewed date:10/04/2024 06:46:14 PM Interpretation: Performing Lab:[facility], [address] [place] [phone] Notes/Report: White Blood Count 6.5 4.8-10.8 X10*3/uL [...] NRBC Abs Auto 0.000 0.0-0.012 X10*3/uL Comprehensive [place]. Panel Fa st Reviewed date:10/05/2024 09:05:22 AM Interpretation: Performing Lab:[facility], [address] [place] [phone] Notes/Report: Sodium 144 135-145 mmol/L Potassium 3.9 [...] Panel Reviewed date:10/04/2024 06:22:42 PM Interpretation: Performing Lab:[facility], [address] [place] [phone] Notes/Report: Triglycerides 101 <150 mg/dL Desirable Triglyceride: [...] T4 Reviewed date:10/04/2024 06:24:59 PM Interpretation: Performing Lab:[address] [phone] Notes/Report: TSH reflex Free T4 0.34 0.32-4.0 uIU/mL Microalbumin, Random Reviewed date:10/04/2024 06:28:23 PM Interpretation: Performing Lab:[address] [phone] Notes/Report: Creatinine Urine 63.70 Microalbumin Urine 24.0 Microalbum/Creatinine Ratio Ur 37.6 <30 ug/mg cr Albumin/Creatinine Ratio Reference Ranges: Normal: < 30 ug/mg creatinine Microalbuminuria: 30 - 300 ug/mg creatinine Clinical Albuminuria: > 300 ug/mg creatinine Hemoglobin A1c Reviewed date:10/04/2024 06:25:17 PM Interpretation: Performing Lab:[facility], [address] [place] [phone] Notes/Report: Hemoglobin A1c % 5.8 <6.0 % [...] average glucose, using the formula of the A1A-Tjhqupj Average Glucose study (ADAG), Diabetes Care, Vol.31,#8, Jan. 2007 UA ClnCatch+Micro w/rflx Cul t Reviewed date:10/05/2024 09:05:43 AM Interpretation: Performing Lab:[facility], [address] [place] [phone] Notes/Report: Urine, Clean Catch Color Urine Yellow Appearance Urine Clear PH 6.5 5.0-9.0 Glucose Urine UA Negative Negative mg/dL Urine Blood Small (1+) Negative Specific [place] - Urine 1.015 1.005-1.025 Urine Protein Negative [...] Location Date Provider Diagnosis Aaron Rob MD [address] [place] [address] [address] [place], [place] [phone] 10/04/2024 Aaron Rob Essential hypertensi on I10 [...] Of Treatment Next Appt Details Provider Name:Aaron Atkinson ier, 11/06/2024 02:15:00 PM, [address] [facility], [address] [facility], [place], [place], [phone], Provider Name:Aaron Atkinson ier, 02/15/2025 10:15:00 AM, [address] [place] [address], Suite [facility], [place], [place], [phone], Provider Name:Aaron Atkinson ier, 04/16/2025 07:30:00 AM, [address] [place] [address], Suite [facility], [place], [place], [phone], Provider Name:Aaron Atkinson ier, 10/08/2025 07:45:00 AM, [address] [place] [address], Suite [facility], [place], [place], [phone], Provider Name:Aaron Atkinson ier, 10/15/2025 09:30:00 AM, [address] [place] [address], Suite [facility], [place], [place], [phone], Progress Notes * Selene BARRYDOB: [birth year] (69 yo F)Acc No.[id number]:10/04/2024 Progress Note Patient:?Selene BARRY Provider:?Aaron Rob MD :1955???Age:69 Y???Sex:Female D ate:10/04/2024 Address:[address] [place] [address] [place], [phone] Subjective: * Chief Complaints: * ???1. Yearly fasting labs. * Medical History:? Objective: * Vitals:? Assessment: * Assessment: 1.?Essential hypertension - I10 (Primary)???2.?Prediabetes - R73.09???3.?Lymphocytosis - D72.820???4.?Chronic systolic congestive heart failure - I50.22???5.?Hyperthyroidism - E05.90???6.?Hypercholesterolemia - E78.00??? Plan: * Treatment: 2.?Prediabetes?LAB: Complete Blood Count Auto Diff (Collection Date & Time - 10/04/2024 07:45 AM) ?LAB: Comprehensive [place]. Panel Fast (Collection Date & Time - [...] Time - 10/04/2024 07:45 AM) ?LAB: Comprehensive [place]. Panel Fast (Collection Date & Time - [...] Time - 10/04/2024 07:45 AM) ?LAB: Comprehensive [place]. Panel Fast (Collection Date & Time - [...] Time - 10/04/2024 07:45 AM) ?LAB: Comprehensive [place]. Panel Fast (Collection Date & Time 10/04/2024 [...] & Time 10/04/2024 07:45 AM) ?LAB: Comprehensive [place]. Panel Fast (Collection Date & Time 10/04/2024 [...] Time - 10/04/2024 07:45 AM) * Procedure Codes:?56165 VENIP UNCT, ROUTINE* * * The named appointment provid er may or may not be the originator of this progress note, and it is not deemed complete until electronically signed by the appointment provider. Sign off status: Pending * Provider:?Aaron Rob MD Date:?0 10/04/2024 Generated for Julius pittman/Fito/Jh on:?11/05/2024 03:21 PM EDT
--- OUTSIDE RECORDS SUMMARY | 2024-11-05 15:21 | XMS_ITS | Encounter Summary ---
Author Organization [employer] Address [address] [facility] 7t [place] [address] Care Team Providers Care Hvac Journeyman Name Role Phone Unavailable Primary Care Provider Unavailabl e Encounter Details Date Type Department Care Team (Late st Contact Info) Description 03/01/[address] [facility] [address] [place] [address] Sunny Martin, DMD [address] [place] [address] Social History Tobacco Use Types Packs/Day Years [...]
--- OUTSIDE RECORDS SUMMARY | 2024-11-05 15:21 | XMS_ITS ---
Author Organization Aaron Rob MD Address [address] [place] [phone] Care Team Providers Care Board Catcher Name Role Phone Aaron Rob Primary Care Provider REASON FOR VISIT 4 week follow up Encounters Encounter Location Date Provider Diagnosis Aaron Rob MD [address] [place] [address] [place] [phone] 08/10/2024 Aaron Rob Plan Of Treatment Next Appt Details Provider Name:Aaron deleon, 11/06/2024 02:15:00 PM, [address] [place] [address], [address], [phone], Provider Name:Aaron deleon, 02/15/2025 10:15:00 AM, [address] [place] [address], [phone], Provider Name:Aaron Atkinson ier, 04/16/2025 07:30:00 AM, [address], [address], [place], [place], [phone], Provider Name:Aaron Atkinson ier, 10/08/2025 07:45:00 AM, [address], [address], [place], [place], [phone], Provider Name:Aaron Atkinson ier, 10/15/2025 09:30:00 AM, [address], [address], [place], [phone], Progress Notes * Selene BARRYDOB: [birth year] (69 yo F)Acc No.[id number]:08/10/2024 Progress Note Patient:Selene DOHERTY Provider:?Aaron Rob MD :1955???Age:69 Y???Sex:Female D ate:08/10/2024 Address:[address] [place], [place] [phone] Subjective: * Chief Complaints: * ???1. 4 [...] Rob MD Date:?0 08/10/2024 Generated for Julius pittman/Fito/eTransmitting on:?11/05/2024 03:21 PM EDT
--- OUTSIDE RECORDS SUMMARY | 2024-11-05 15:21 | XMS_ITS | Clinical Summary ---
Author Organization [employer] Address [address] [place] [address] 7t [place] [address] Care Team Providers Care Diet Kitchen Cook Name Role Phone Unavailable Primary Care Provider [...] Recently Relevant to Health Maintenance Insurance MEDICARE [facility] [place] [id number] [facility] MEDICAID [facility] ADULT
--- OUTSIDE RECORDS SUMMARY | 2024-11-05 15:21 | XMS_ITS ---
Author Organization Aaron Rob MD Address [address] [place] [phone] Care Team Providers Care Assayer Helper Name Role Phone Aaron Rob Primary Care Provider [phone] Allergies No Known Allergies REASON FOR VISIT comp visit Medications Medication SIG (Take, Route, Frequency, Duration) Notes Start Date End Date Status Docusate Sodium 100 MG 1 capsule as need ed Orally Once a day Not-Taking Amoxicillin-Pot Clavulanate 875-125 MG 1 tablet Orally every 12 hrs for 7 days 08/25/2023 Not-Taking Omeprazole 20 MG Take 1 capsule by [facility] once daily for 90 Active Synthroid [...] kg/m2 10/11/2024 weight is down 6 pounds [facility] e 07-06-24 Encounters Encounter Location Date Provider Diagnosis Aaron Rob MD [address] [place] [address] [place] [phone] 10/11/2024 Aaron Rob Atrophy of vagina N9 [...] Up: 4 Months, Reason: Provider Name:Aaron deleon, 11/06/2024 02:15:00 PM, [address] [place] [address], [address], [place], [place], [phone], Provider Name:Aaron deleon, 02/15/2025 10:15:00 AM, [address] [place] [address], [address], [place], [place], [phone], Provider Name:Aaron Atkinson ier, 04/16/2025 07:30:00 AM, [address], [address], [place], [place], [phone], Provider Name:Aaron Atkinson ier, 10/08/2025 07:45:00 AM, [address], [address], [place], [phone], Provider Name:Aaron Atkinson ier, 10/15/2025 09:30:00 AM, [address], [address], [place], [phone], Progress Notes * Selene BARRYDOB: [birth year] (69 yo F)Acc No.[id number]:10/11/2024 Patient:?Selene BARRY Provider:?Aaron Rob MD :1955???Age:69 Y???Sex:Female D ate:10/11/2024 Address:[address] [place] [id number] Subjective: * Chief Complaints: * ???Comp visit [...] Marital status: . Travel outside of the [place]: no. * Medications:?TakingSynthroid 100 MCG Tablet [...] Objective: * Vitals:?Ht: 63.5, Wt: 183, B MT:31.91, BP:152/78, Repeat BP:140/70, Wt-k.01. weight is down [...] Abs Auto 0.000 0.0-0. 012 - X10*3/uL ???Lab:UA ClnCatch+Micro w/r flx Cult (Order Date - 10/04/2024) (Collection Date & Time - 10/04/2024 07:45 AM) ? Value Reference Range ?Color Urine Yellow - ?Appearance Urine Clear - ?PH 6.5 5.0-9.0 - ?Glucose Urine UA Negative Neg ative - mg/dL ?Urine Blood Small (1+) A Negative - ?Specific [place] - Urine 1.015 1.005-1.025 - ?Urine Protein [...] Casts Urine 0-2 0-2 - /LPF ???Lab:Comprehensive [place]. P vandana Fast (Order Date - 10/04/2024) [...] L >40 - mg/dL ???Lab:Urine Culture (Order - 10/04/2024) (Collection Date & Time - 10/04/2024) ? Value Reference Range ?Urine Culture No growth. - ???Lab:TSH reflex Free T4 (O rder 10/04/2024) (Collection Date & Time - 10/04/2024 [...] organomegaly , no masses palpable.?RECTAL EXAM:?done by slotter operator.?FEMALE GENITOURINARY:?done by slotter operator.?EXTREMITIES:?no clubbing, cyanosis, or edema.?NEUROLOGIC:?nonfocal, motor strength [...] MD Date:?0 10/11/2024 Generated for Julius pittman/Fito/Dionnaitting on:?11/05/2024 03:21 PM EDT History and Physical Notes * [...] Total Score: 0 Interpretation and Intervention Depression Akil kapoor Findings: Negative Follow-Up for Depression: : review [...] or edema BREASTS: RECTAL EXAM: done by slotter operator FEMALE GENITOURINARY: done by slotter operator ORAL CAVITY: mucosa moist
--- OUTSIDE RECORDS SUMMARY | 2024-11-05 15:22 | XMS_ITS | Patient Health Record ---
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 Name Role Phone Aaron Rob Primary Care Provider [phone] Allergies No Known Allergies Results Component Value Reference Range Notes UA ClnCatch+Micro w/rflx Cul t Reviewed date:11/12/2023 06:36:15 PM Interpretation: Performing Lab:[facility], [address] [place] [phone] Notes/Report: Urine, Clean Catch Color Urine Yellow Appearance Urine Clear PH 7.0 5.0-9.0 Glucose Urine UA Negative Negative mg/dL Urine Blood Negative Negative Specific [place] - Urine 1.015 1.005-1.025 Urine Protein Negative Neg-Trace mg/dL Urine Ketones Negative Negative mg/dL Nitrite Urine Negative Negative Leukocyte Esterase Urine Large (3+) Negative RBC Urine 0-2 0-2 /HPF WBC Urine 0-5 0-5 /HPF Squamous Epithelial Cell Urine 6-10 0-2 /HPF Bacteria Urine 1+ None Seen Hyaline Casts Urine 0-2 0-2 /LPF Liver Panel Reviewed date:06/04/2024 12:45:25 PM Interpretation: Performing Lab:[facility], [address] [place] [phone] Notes/Report: Bilirubin Total 0.9 0.0-1.0 mg/dL Bilirubin Direct 0.3 0.0-0.5 mg/dL Aspartate Amino Transferase 30 5-31 U/L Alanine Aminotransferase 16 0-31 U/L Total Protein 7.3 6.5-8.0 g/dL Albumin Level 4.0 3.5-5.0 g/dL Alkaline Phosphatase 122 39-117 U/L Glucose Fasting Reviewed date:06/04/2024 12:49:55 PM Interpretation: Performing Lab:[facility], [address] [place] [phone] Notes/Report: Glucose Fasting 109 60-99 mg/dL A fasting glucose from 100-125 mg/dl is considered impaired (pre-diabetes). Lipid Panel with Reflex Reviewed date:06/04/2024 12:45:35 PM Interpretation: Performing Lab:[facility], [address] [place] [phone] Notes/Report: Triglycerides 114 <150 mg/dL Desirable Triglyceride: [...] A1c Reviewed date:06/04/2024 12:44:41 PM Interpretation: Performing Lab:[facility], [address] [place] [phone] Notes/Report: Hemoglobin A1c % 5.3 <6.0 % [...] average glucose, using the formula of the A2M-Kajlzwm Average Glucose study (ADAG), Diabetes Care, Vol.31,#8, 2007 Complete Blood Count Auto Di ff Reviewed date:10/04/2024 06:46:14 PM Interpretation: Performing Lab:[facility], [address] [place] [phone] Notes/Report: White Blood Count 6.5 4.8-10.8 X10*3/uL [...] NRBC Abs Auto 0.000 0.0-0.012 X10*3/uL Comprehensive [place]. Panel Fa st Reviewed date:10/05/2024 09:05:22 AM Interpretation: Performing Lab:[facility], [address] [place] [phone] Notes/Report: Sodium 144 135-145 mmol/L Potassium 3.9 [...] Panel Reviewed date:10/04/2024 06:22:42 PM Interpretation: Performing Lab:[facility], [address] [place] [phone] Notes/Report: Triglycerides 101 <150 mg/dL Desirable Triglyceride: [...] T4 Reviewed date:10/04/2024 06:24:59 PM Interpretation: Performing Lab:[facility], [address] [place] [phone] Notes/Report: TSH reflex Free T4 0.34 0.32-4.0 uIU/mL Microalbumin, Random Reviewed date:10/04/2024 06:28:23 PM Interpretation: Performing Lab:[facility], [address] [place] [phone] Notes/Report: Creatinine Urine 63.70 Microalbumin Urine 24.0 Microalbum/Creatinine Ratio Ur 37.6 <30 ug/mg cr Albumin/Creatinine Ratio Reference Ranges: Normal: < 30 ug/mg creatinine Microalbuminuria: 30 - 300 ug/mg creatinine Clinical Albuminuria: > 300 ug/mg creatinine Hemoglobin A1c Reviewed date:10/04/2024 06:25:17 PM Interpretation: Performing Lab:[facility], [address] [place] [phone] Notes/Report: Hemoglobin A1c % 5.8 <6.0 % [...] average glucose, using the formula of the B9W-Stzcixk Average Glucose study (ADAG), Diabetes Care, Vol.31,#8, Aug. 2007 UA ClnCatch+Micro w/rflx Cul t Reviewed date:10/05/2024 09:05:43 AM Interpretation: Performing Lab:[facility], [address] [place] [phone] Notes/Report: Urine, Clean Catch Color Urine Yellow Appearance Urine Clear PH 6.5 5.0-9.0 Glucose Urine UA Negative Negative mg/dL Urine Blood Small (1+) Negative Specific [place] - Urine 1.015 1.005-1.025 Urine Protein Negative Neg-Trace mg/dL Urine Ketones Negative Negative mg/dL Nitrite Urine Negative Negative Leukocyte Esterase Urine Trace Negative RBC Urine 11-20 0-2 /HPF WBC Urine 6-10 0-5 /HPF Squamous Epithelial Cell Urine 6-10 0-2 /HPF Bacteria Urine 3+ None Seen Hyaline Casts Urine 0-2 0-2 /LPF TSH reflex Free T4 Reviewed date:07/06/2024 05:11:26 PM Interpretation: Performing Lab:[facility], [address] [place] [phone] Notes/Report: TSH reflex Free T4 0.16 0.32-4.0 uIU/mL Urine Culture Reviewed date:11/12/2023 06:27:53 PM Interpretation: Performing Lab:[facility], [address] [place] [phone] Notes/Report: Urine Culture Report Result Urine Culture 10,000 to 50,000 cfu/ml Urine Culture Mixed bacterial herson a characteristic of Urine Culture urogenital contamination. Complete Blood Count Auto Di ff Reviewed date:01/23/2024 12:45:16 PM Interpretation: Performing Lab:[facility], [address] [place] [phone] Notes/Report: White Blood Count 6.1 4.8-10.8 X10*3/uL [...] te Reviewed date:01/23/2024 12:09:33 PM Interpretation: Performing Lab:[facility], [address] [place] [phone] Notes/Report: Erythrocyte Sedimentation Rate 2 0-20 MM/HR Patients with polycythemia and many hemoglobin abnormalities may have depressed sed rates whereas patients with anemia may have elevated sed rates. Comprehensive Met. Panel Reviewed date:01/23/2024 12:12:34 PM Interpretation: Performing Lab:[facility], [address] [place] [phone] Notes/Report: Sodium 141 135-145 mmol/L Potassium 4.0 3.3-5.1 mmol/L Chloride 110 96-108 mmol/L Carbon Dioxide 22 22-29 mmol/L Anion Gap 13 12-20 Blood Urea Nitrogen 20 9-16 mg/dL Creatinine 0.67 0.5-1.4 mg/dL Estimated Glomerular Filt Rate > 60 NOTE: For -Bahamian individuals, multiply the result by 1.210. Chronic [...] Protein Reviewed date:01/23/2024 12:09:42 PM Interpretation: Performing Lab:[facility], [address] [place] [phone] Notes/Report: C Reactive Protein 0.22 < or = 0.50 mg/dL XR knee LT 3V Reviewed date:04/27/2024 05:15:34 PM Interpretation: Performing Lab: Notes/Report: [address] [place] [address] XRay Report Signed Patient: Selene Barry MR#: [id number] 3611 : 1955 Acct:[id number] Age/Sex: 68 / F ADM Date: 02/03/24 Loc: CARMEL Attending Dr: Kasey Wesley EPIC MANAGER Ordering Physician: Kasey Wesley Date of Service: 02/03/24 Procedure(s): XR knee LT 3V Accession Number(s): [id number] cc: Aaron Rob MD; Kasey Wesley EXAMINATION: [...] 04/27/24 1138 DD/ 0954 TD/TT: 02/03/24 1022 Eligibility Technician: [address] [address] XRay Report Signed Patient: Selene Barry MR#: [id number] 3611 : 1955 Acct:[id number] Age/Sex: 68 / F ADM Date: 02/03/24 Loc: HOZuleykaXRAY Attending Dr: Kasey LUKE Ordering Physician: Kasey Wesley Date of Service: 02/03/24 Procedure(s): XR kne e LT 3V Accession Number(s): [id number] cc: Aaron Rob MD; Kasey Wesley EXAMINATION: [...] 04/27/24 1138 DD/ 0954 TD/TT: 02/03/24 1022 Eligibility Technician: XR foot LT min 3V Reviewed date:04/27/2024 11:59:11 AM Interpretation: Performing Lab: Notes/Report: [address] [address] XRay Report Signed Patient: Selene Barry MR#: [id number] 3611 : 1955 Acct:[id number] Age/Sex: 68 / F ADM Date: 02/03/24 Loc: HOZuleykaXRANNIKA Attending Dr: Kasey LUKE Ordering Physician: Kasey Wesley Date of Service: 02/03/24 Procedure(s): XR foot LT min 3V Accession Number(s): [id number] cc: Aaron Rob MD; Kasey Wesley EXAMINATION: [...] 04/27/24 1045 DD/ 0954 TD/TT: 02/03/24 1022 Eligibility Technician: [place] [address] XRay Report Signed Patient: Selene Barry MR#: [id number] 3611 : 1955 Acct:[id number] Age/Sex: 68 / F ADM Date: 02/03/24 Loc: CARMEL Attending Dr: Kasey LUKE Ordering Physician: Kasey Wesley Date of Service: 02/03/24 Procedure(s): XR sea t LT min 3V Accession Number(s): [id number] cc: Aaron Rob MD; Ksaey Wesley EXAMINATION: XR FOOT, LEFT CLINICAL INFORMATION: [...] 04/27/24 1045 DD/ 0954 TD/TT: 02/03/24 1022 Eligibility Technician: XR lumbar spine 4V min Reviewed date:04/11/2024 06:48:51 PM Interpretation: Performing Lab: Notes/Report: [address] [address] XRay Report Signed Patient: Selene Barry MR#: [id number] 3611 : 1955 Acct:[id number] Age/Sex: 68 / F ADM Date: 02/03/24 Loc: CARMEL Attending Dr: Kasey LUKE Ordering Physician: Kasey Wesley Date of Service: 02/03/24 Procedure(s): XR lumbar spine 4V min Accession Number(s): [id number] cc: Aaron Rob MD; Kasey Wesley EXAMINATION: [...] 04/09/24 0840 DD/ 0954 TD/TT: 02/03/24 1022 Eligibility Technician: [place] [address] XRay Report Signed Patient: Selene Barry MR#: [id number] 3611 : 1955 Acct:[id number] Age/Sex: 68 / F ADM Date: 02/03/24 Loc: CARMEL Attending Dr: Kasey LUKE Ordering Physician: Kasey Wesley Date of Service: 02/03/24 Procedure(s): XR lum bar spine 4V min Accession Number(s): [id number] cc: Aaron Rob MD; Kasey Wesley EXAMINATION: [...] severe thoracolumbar rotatory levoscoliosis. There is mild mechanical planner ior disc space narrowing at T12-L1 and [...] 04/09/24 0840 DD/ 0954 TD/TT: 02/03/24 1022 Eligibility Technician: RONALD MR lumbar spine wo con Reviewed date:03/15/2024 12:30:31 PM Interpretation: Performing Lab: Notes/Report: [address] [address] Magnetic Resonance Report Signed Patient: Selene Barry MR#: [id number] 3611 : 1955 Acct:[id number] Age/Sex: 68 / F ADM Date: 03/14/24 Loc: HO.MRI Attending Dr: Kasey LUKE Ordering Physician: Kasey Wesley Date of Service: 03/14/24 Procedure(s): MR lumbar spine wo con Accession Number(s): [id number] cc: Aaron Rob MD; Kasey Wesley EXAMINATION: [...] OV> 03/15/24 1001 DD/ 10 TD/TT: 03/14/242027 Eligibility Technician: [place] [address] Magnetic Resonance Report Signed Patient: Selene Barry MR#: [id number] 3611 : 1955 Acct:[id number] Age/Sex: 68 / F ADM Date: 03/14/24 Loc: HO.MRI Attending Dr: Kasey LUKE Ordering Physician: Kasey Wesley Date of Service: 03/14/24 Procedure(s): MR lum bar spine wo con Accession Number(s): [id number] cc: Aaron Rob MD; Kasey Wesley EXAMINATION: [...] OV> 03/15/24 1001 DD/ 10 TD/TT: 03/14/242027 Eligibility Technician: MARIA ISABEL MM tomosynthesis screening B I Reviewed date:03/28/2024 03:56:48 PM Interpretation: Performing Lab: Notes/Report: [facility] [address] [place], [place] [address] Mammography Report Signed Patient: Selene Barry MR#: [id number] 3611 : 1955 Acct:[id number] Age/Sex: 68 / F ADM Date: 03/16/24 Loc: HO.MAMMO Attending Dr: Power Becker MD Ordering Physician: Power Becker MD Results: 1Negativ e Date of Service: 03/16/24 Follow Up: 1 Year From Orig ina Mammogram Procedure(s): MM tomosynthesis screening BI Accession Number(s): [id number] cc: Aaron Rob MD; Power Becker MD [...] 03/28/24 1159 DD/ 9 TD/TT: 03/16/24 0840 Eligibility Technician: [facility] [address] [place], [place] [address] Mammography Report Signed Patient: Selene Barry MR#: [id number] 3611 : 1955 Acct:[id number] Age/Sex: 68 / F ADM Date: 03/16/24 Loc: HO.MAMMO Attending Dr: Power Becker MD Ordering Physician: Power Beckre MD Results: 1Negativ e Date of Service: 03/16/24 Follow Up: 1 Year From Orig inal Mammogram Procedure(s): MM tomosynthesis screening BI Accession Number(s): [id number] cc: Aaron Rob MD; Power Becker MD [...] OV> 03/28/24 1159 DD/ TD/TT: 03/16/24 0840 Eligibility Technician: XR DEXA axial skeleton Reviewed date:04/03/2024 02:11:53 PM Interpretation: Performing Lab: Notes/Report: [facility] [address] [place], [place] [address] Mammography Report Signed Patient: Selene Barry MR#: [id number] 3611 : 1955 Acct:[id number] Age/Sex: 68 / F ADM Date: 03/16/24 Loc: HO.MAMMO Attending Dr: Power Becker MD Ordering Physician: Power Becker MD Results: Date of Service: 03/16/24 Follow Up: Procedure(s): XR DEXA axial skeleton Accession Number(s): [id number] cc: Aaron Rob MD; Power Becker MD EXAMINATION: BONE DENSITOMETRY CLINICAL INDICATION: Menopause. COMPARISON: Previous BD dated 10/09/2021 and baseline BD dated 10/05/2016. TECHNIQUE: Using a [employer] DXA System (software version: 13.1) manufactured by [employer], dual-energy x-ray absorptiometry was performed of the [...] OV> 04/03/2439 DD/ 0845 TD/TT: 03/16/24 09 Eligibility Technician: [facility] [address] [place], [place] [address] Mammography Report Signed Patient: Selene Barry MR#: [id number] 3611 : 1955 Acct:[id number] Age/Sex: 68 / F ADM Date: 03/16/24 Loc: HO.MAMMO Attending Dr: Power Becker MD Ordering Physician: Power Becker MD Results: Date of Service: 03/16/24 Follow Up: Procedure(s): XR DEX A axial skeleton Accession Number(s): [id number] cc: Aaron Rob MD; Power Becker MD EXAMINATION: BONE DENSITOMETRY CLINICAL INDICATION: Menopause. COMPARISON: Previous BD dated 10/09/2021 and baseline BD dated 10/05/2016. TECHNIQUE: Using a [employer] DXA System (software version: 13.1) manufactured [employer], dual-energy x-ray absorptiometry was performed of the [...] 04/03/24 0839 DD/ 0845 TD/TT: 03/16/24 0900 Eligibility Technician: HS MR thoracic spine wo con Reviewed date:04/04/2024 06:26:06 PM Interpretation: Performing Lab: Notes/Report: [address] [address] Magnetic Resonance Report Signed Patient: Selene Barry MR#: [id number] 3611 : 1955 Acct:[id number] Age/Sex: 68 / F ADM Date: 04/02/24 Loc: HO.MRI Attending Dr: Osmel MARADIAGA Ordering Physician: Osmel Mckoy Date of Service: 04/02/24 Procedure(s): MR thoracic spine wo con Accession Number(s): [id number] cc: Aaron Rbo MD; Osmel Mckoy EXAMINATION: MR THORACIC SPINE [...] 04/03/24 1509 DD/ 1830 TD/TT: 04/02/24 1855 Eligibility Technician: [place] [address] Magnetic Resonance Report Signed Patient: Selene Barry MR#: [id number] 3611 : 1955 Acct:[id number] Age/Sex: 68 / F ADM Date: 04/02/24 Loc: HO.MRI Attending Dr: Osmel MARADIAGA Ordering Physician: Osmel Mckoy Date of Service: 04/02/24 Procedure(s): MR thoracic spine wo con Accession Number(s): [id number] cc: Aaron Rob MD; Osmel Mckoy EXAMINATION: [...] 04/03/24 1509 DD/ 1830 TD/TT: 04/02/24 1855 Eligibility Technician: Complete Blood Count Auto Di ff Reviewed date:05/03/2024 12:29:13 PM Interpretation: Performing Lab:[facility], [address] [place] [phone] Notes/Report: White Blood Count 6.5 4.8-10.8 X10*3/uL [...] te Reviewed date:05/03/2024 12:46:33 PM Interpretation: Performing Lab:[facility], [address] [place] [phone] Notes/Report: Erythrocyte Sedimentation Rate 5 0-20 MM/HR Patients with polycythemia and many hemoglobin abnormalities may have depressed sed rates whereas patients with anemia may have elevated sed rates. Comprehensive Met. Panel Reviewed date:05/03/2024 12:46:22 PM Interpretation: Performing Lab:[facility], [address] [place] [phone] Notes/Report: Sodium 141 135-145 mmol/L Potassium 4.5 3.3-5.1 mmol/L Slight Hemolysis.Interpret result with caution. Chloride 108 96-108 mmol/L Carbon Dioxide 21 22-29 mmol/L Anion Gap 17 12-20 Blood Urea Nitrogen 15 9-16 mg/dL Creatinine 0.60 0.5-1.4 mg/dL Estimated Glomerular Filt Rate > 60 NOTE: For -Bahamian individuals, multiply the result by 1.210. Chronic [...] Protein Reviewed date:05/03/2024 12:28:49 PM Interpretation: Performing Lab:[facility], [address] [place] [phone] Notes/Report: C Reactive Protein 0.61 < or = 0.50 mg/dL Hepatitis A,B,C Profile Reviewed date:05/03/2024 12:28:29 PM Interpretation: Performing Lab:[facility], [address] [place] [phone] Notes/Report: Hepatitis A Antibody IgM Nonreactive Nonreactive [...] TB Reviewed date:05/06/2024 12:59:20 PM Interpretation: Performing Lab:[facility], [address] [place] [phone] Notes/Report: TSpotTB Negative Negative A negative test [...] Passed For additional information, please refer to http://education.Reapplix.ApplyKit/fa q/QHO053 (This link is being provided for informational/ educational purposes only.) THIS TEST WAS PERFORMED AT: [facility]/[address] RACHELL OLIVAREZ MD,PHD CT lumbar spine wo con Reviewed date:07/23/2024 05:20:34 PM Interpretation: Performing Lab: Notes/Report: [address] [address] [address] Scan Report Signed Patient: Selene Barry MR#: [id number] 3611 : 1955 Acct:[id number] Age/Sex: 69 / F ADM Date: 05/11/24 Loc: HO.CT Attending Dr: Osmel MARADIAGA Ordering Physician: Osmel Mckoy Date of Service: 11/15/24 Procedure(s): CT lumbar spine wo IV con Accession Number(s): [id number] cc: Aaron Rob MD; Osmel Mckoy Report Number: [id number]: Total DLP = 681.00 mGy-cm EXAMINATION: CT [...] 07/23/24 0441 DD/ 1318 TD/TT: 05/11/24 1345 Eligibility Technician: KYAW [address] [address] [address] Scan Report Signed Patient: Selene Barry MR#: [id number] 3611 : 1955 Acct:[id number] Age/Sex: 69 / F ADM Date: 05/11/24 Loc: HO.CT Attending Dr: Osmel MARADIAGA Ordering Physician: Osmel Mckoy Date of Service: 05/11/24 Procedure(s): CT lum bar spine wo IV con Accession Number(s): [id number] cc: Aaron Rob MD; Osmel Mckoy Report Number: [id number]: Total DLP = 681.00 mGy-cm EXAMINATION: CT [...] of S1. 1. No evidence of ac barry fracture or traumatic subluxation of the lumbar [...] 07/23/24 0441 DD/ 1318 TD/TT: 05/11/24 1345 Eligibility Technician: KYAW Monsivais Reviewed date:06/04/2024 12:48:56 PM Interpretation: Performing Lab:[facility], [address] [place] [phone] Notes/Report: Afshan Monsivais See Note Specimen held untested for 24 hours; Call to request Chemistry testing. XR chest 2V Reviewed date:07/06/2024 12:50:13 PM Interpretation:CBACK 07/06/24 Performing Lab: Notes/Report: [address] [address] XRay Report Signed Patient: Selene Barry MR#: [id number] 3611 : 1955 Acct:[id number] Age/Sex: 69 / F ADM Date: 06/29/24 Loc: CARMEL Attending Dr: Aaron Rob MD Ordering Physician: Aaron Rob MD Date of Service: 06/29/24 Procedure(s): XR chest 2V Accession Number(s): [id number] cc: Aaron Rob MD CLINICAL HISTORY: Acute [...] 07/02/24 1055 DD/ 1055 TD/TT: 07/02/24 1055 Eligibility Technician: [address] [address] XRay Report Signed Patient: Selene Barry MR#: [id number] 3611 : 1955 Acct:[id number] Age/Sex: 69 / F ADM Date: 06/29/24 Loc: HO.XRAY Attending Dr: Aaron Rob MD Ordering Physician: Aaron Rob MD Date of Service: 06/29/24 Procedure(s): XR tigist st 2V Accession Number(s): [id number] cc: Aaron Rob MD CLINICAL HISTORY: Ac barry URI Chest two views Comparison: None Findings: [...] 07/02/24 1055 DD/ 1055 TD/TT: 07/02/24 1055 Eligibility Technician: Free T4 (Free Thyroxine) Reviewed date:07/06/2024 05:11:14 PM Interpretation: Performing Lab:[facility], [address] [place] [phone] Notes/Report: Free T4 (Free Thyroxine) 1.31 0.71-1.85 ng/dL Afshan Monsivais Reviewed date:07/06/2024 01:24:48 PM Interpretation: Performing Lab:[facility], [address] [place] [phone] Notes/Report: Afshan Monsivais See Note Specimen held untested for 24 hours; Call to request Chemistry testing. Afshan Monsivais Reviewed date:10/04/2024 06:20:14 PM Interpretation: Performing Lab:[facility], [address] [place] [phone] Notes/Report: Afshan Monsivais See Note Specimen held untested for 24 hours; Call to request Chemistry testing. Urine Culture Reviewed date:10/05/2024 09:02:59 AM Interpretation: Performing Lab:[facility], [address] [place] [phone] Notes/Report: Urine Culture No growth. XR chest 2V Reviewed date:10/19/2024 10:26:20 AM Interpretation: Performing Lab: Notes/Report: [address] [address] XRay Report Signed Patient: Selene Barry MR#: [id number] 3611 : 1955 Acct:[id number] Age/Sex: 69 / F ADM Date: 10/17/24 Loc: CARMEL Attending Dr: Aaron Rob MD Ordering Physician: Aaron Rob MD Date of Service: 10/17/24 Procedure(s): XR chest 2V Accession Number(s): [id number] cc: Aaron Rob MD CLINICAL HISTORY: MILD INTERMITTENT ASTHMA --- [...] in OV> 10/18/242154 DD/ 54 TD/TT: 10/18/242154 Eligibility Technician: [address] [address] XRay Report Signed Patient: Selene Barry MR#: [id number] 3611 : 1955 Acct:[id number] Age/Sex: 69 / F ADM Date: 10/17/24 Loc: CARMEL Attending Dr: Aaron Rob MD Ordering Physician: Aaron Rob MD Date of Service: 10/17/24 Procedure(s): XR tigist st 2V Accession Number(s): [id number] cc: Aaron Rob MD CLINICAL HISTORY: [place] LD INTERMITTENT ASTHMA --- Additional Notes or [...] in OV> 10/18/242154 DD/ 54 TD/TT: 10/18/242154 Eligibility Technician: Comprehensive Met. Panel (No t yet reviewed by provider) Interpretation:[facility] 11/06 Performing Lab:[facility], [address] [place] [phone] Notes/Report: Sodium 134 135-145 mmol/L Potassium 4.3 3.3-5.1 mmol/L Chloride 100 96-108 mmol/L Carbon Dioxide 28 22-29 mmol/L Anion Gap 10 12-20 Blood Urea Nitrogen 14 9-16 mg/dL Creatinine 0.76 0.5-1.4 mg/dL Estimated Glomerular Filt Rate > 60 Chronic Kidney Disease: Estimated GFR < 60 mL/min/1.73m2 Severe Kidney Disease: Estimated GFR < 15 mL/min/1.73m2 Glucose Random 337 60-115 mg/dL Calcium 9.2 8.4-10.2 mg/dL Bilirubin Total 1.0 0.0-1.0 mg/dL Aspartate Amino Transferase 17 5-31 U/L Alanine Aminotransferase 13 0-31 U/L Total Protein 7.5 6.5-8.0 g/dL Albumin Level 4.1 3.5-5.0 g/dL Alkaline Phosphatase 156 39-117 U/L Complete Blood Count Auto Di ff Reviewed date:11/02/2024 12:26:56 PM Interpretation: Performing Lab:[facility], [address] [place] [phone] Notes/Report: White Blood Count 7.9 4.8-10.8 X10*3/uL Red Blood Count 5.08 4.20-5.50 X10*6/uL Hemoglobin 13.9 12.0-16.0 g/dl Hematocrit 41.3 37.0-47.0 % Mean Corpuscular Volume 81.3 80.0-98.0 fL Mean Corpuscular Hemoglobin 27.4 27.0-33.0 pg Mean Corpuscular HGB Conc 33.7 31.0-35.0 g/dl Red Cell Distribution Width 12.8 11.0-16.0 % Platelet Count 244 160-400 X10*3/uL Mean Platelet Volume 10.7 9.4-12.3 fL Neutrophils Percent Auto 51.2 45-73 % Imm Gran Pct Auto 0.4 0.0-0.4 % Lymphocytes Percent Auto 37.5 20-40 % Monocytes Percent Auto 7.6 2-11 % Eosinophils Percent Auto 2.5 0-4 % Basophils Percent Auto 0.8 0-2 % NRBC Pct Auto 0.0 0.0-0.2 /100WBC Neutrophils Absolute Auto 4.0 2.0-8.3 x10*3/u L Imm Gran Abs Auto 0.03 0.00-0.03 X10*3/uL Lymphocytes Absolute Auto 3.0 1.2-4.9 X10*3/u L Monocytes Absolute Auto 0.6 0.1-1.2 X10*3/uL Eosinophils Absolute Auto 0.2 0.0-0.4 X10*3/u L Basophils Absolute Auto 0.1 0.0-0.2 X10*3/uL NRBC Abs Auto 0.000 0.0-0.012 X10*3/uL Erythrocyte Sedimentation Ra te Reviewed date:11/02/2024 05:05:39 PM Interpretation: Performing Lab:[address] [phone] Notes/Report: Erythrocyte Sedimentation Rate 12 0-20 MM/HR Patients with polycythemia and many hemoglobin abnormalities may have depressed sed rates whereas patients with anemia may have elevated sed rates. C Reactive Protein Reviewed date:11/02/2024 01:00:24 PM Interpretation: Performing Lab:[address] [address] Notes/Report: C Reactive Protein 1.94 < or = 0.50 mg/dL Reason For Referral Reason osteoporosis Diagnosis 1 Age-related osteopor osis without current pathological fracture (M81.0) Referral Organization Aaron Rob MD Referring Provider First Name Aaron Referring Provider Last Name Darron Referring Provider Speciality Internal M edicine Referred Provider Angelo Andrew Referred Provider Specialty Endocrinolog y General Notes Ursula Tracy 0 07/26/2024 03:26:47 PM >info faxed with [facility] office note Referral Priority Routine [...] Omeprazole 20 MG Take 1 capsule by [facility] once daily for 90 Active Immunizations Vaccine [...] W/U Status Risk Notes Problem Hypercoagulable state (46615621) Secondary hypercoagulable state (289.82) Active confirmed Problem Spinal stenosis (39727187) Spinal stenosis (724.00) Active confirmed Problem 55017159 Age-related osteoporosis without current pathological fracture (M81.0) Active confirmed Problem 836692861 Thyroid nodule (E04.1) Active confirm ed Problem 17099170 Lymphocytosis (D72.820) Active confirmed Problem 908394767088296 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.52) Active confirmed Problem 53738813 Lumbar disc dise ase (M51.9) Active confirmed Problem 78798538 Essential hypert ension (I10) Active confirmed Problem 284418889 Mild intermitten t asthma without complication (J45.20) Active confirmed Problem 5462033 Prediabetes (R73.09) Active confirmed Problem 619288213 Chronic systolic congestive heart failure (I50.22) Active confirmed Problem 56337255 Hyperthyroidism (E05.90) Active confirmed Problem 044810489 Rheumatoid arthr itis involving multiple sites, 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) Active confirmed Problem 893959120 Graves disease (E05.00) Active confirmed Problem 512629298 History of coron marie artery bypass graft (Z95.1) Active confirmed Problem 4460684 Thyromegaly (E04.9) Active confirmed Problem 660923906 Non-rheumatic mi tral regurgitation (I34.0) Active confirmed Problem 165678761 Thyroid cancer (C73) Active confirmed Problem 266050379 Vaginal bleeding (N93.9) Active confirmed Problem 39943843 Sciatica of righ t side (M54.31) Active confirmed Problem 89669710 Hypercholesterol emia (E78.00) Active confirmed Problem 2040591871976 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) Active confirmed Problem 325430099 Atrophy of vagin a (N95.2) Active confirmed Problem 939000376 Vaginal prolapse (N81.10) Active confirmed Vital Signs [...] Aaron Rob MD [address] [place] [address] [id number] 11/11/2023 Aaron Rob Hematuria, unspecifi ed type R31.9 Aaron Rob MD [address] [place] [address] [id number] 06/04/2024 Aaron Rob Prediabetes R73.09 a nd Hypercholesterolemia E78.00 Aaron Rob MD [address] [place] [address] [id number] 10/04/2024 Aaron Rob Essential hypertensi on I10 ; Prediabetes R73.09 ; Lymphocytosis D72.820 ; Chronic systolic congestive heart failure I50.22 ; Hyperthyroidism E05.90 and Hypercholesterolemia E78.[address] [place] [address] [id number] 04/16/2024 Aaron Rob Encounter for administration of vaccine Z23 Aaron Rob MD [address] [place] [address] [id number] 06/11/2024 Aaron Rob Vaginal prolapse N81 .10 ; Essential hypertension I10 and Rheumatoid arthritis involving multiple sites, unspecified rheumatoid factor presence M06.9 Aaron Rob MD [address] [id number] 06/21/2024 Aaron Rob Mild intermittent as thma without complication J45.20 Aaron Rob MD [address] [place] [address] [id number] 06/29/2024 Aaron Rob Acute URI J06.[address] Rob MD [address] [place] [address] [id number] 07/06/2024 Aaron Rob Mild intermittent as thma without complication J45.20 ; Hyperthyroidism E05.90 and Pneumonitis, interstitial J84.89 Aaron Rob MD [address] [id number] 10/11/2024 Aaron Rob Atrophy of vagina N9 [...] J06.9) THE XRAY ORDER WAS FAXED TO [facility] PATIENT REG. PATIENT AWARE, patient verbalized understanding [...] & LAT 06/29/2024 BONE DENSITY DEXA 07/03/2021 Comprehensive Met. Panel 11/02/2024 Future Test Test Name Order Date XR CHEST 2 VIEW PA & LAT 08/03/2024 Next Appt Details Provider Name:Aaron Atkinson ier, 11/06/2024 02:15:00 PM, [address] [place] [address], [address], [phone], Provider Name:Aaron Atkinson ier, 02/15/2025 10:15:00 AM, [address] [place] [address], [phone], Provider Name:Aaron Atkinson ier, 04/16/2025 07:30:00 AM, [address] [place] [address], [address], [phone], Provider Name:Aaron Atkinson ier, 10/08/2025 07:45:00 AM, [address] [place] [address], [address], [phone], Provider Name:Aaron Atkinson ier, 10/15/2025 09:30:00 AM, [address] [place] [address], [phone], Insurance Providers Payer Name Payer Address Payer Phone Subscriber Number Group Number Insured Name Patient Relationship to Insured Coverage Start Date Coverage End Date MEDICARE [employer] [address] [place] [address] [id number] Christiano pham Selene Self - patient is the insured [facility] [address] [place] [address] [id number] Christiano pham Selene Self - patient is the insured Medical (General) History Medical History History ICD Code colonoscopy - 03/2008 hyperp lastic polyp due 03/[address] Lan; Colonoscopy done 07/14/[address] 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
== END 2024-11-05 16:04 | disposition home or self-care (01) ==
LOC: HO.RHE 15:18
PROVIDERS: PCP Internal Medicine; Visit Provider Student in an Organized Health Care Education/Training Program
DX: M05.79 Rheumatoid arthritis with rheumatoid factor of multiple sites without organ or systems involvement (principal)
CPT/HCPCS: 99213

== ENCOUNTER → 2024-11-05 15:17 | Outpatient (BNVA) | payer MEDICARE, MEDICAID, SELFPAY | PROVIDERS: PCP Internal Medicine; Visit Provider Student in an Organized Health Care Education/Training Program | DX: M05.9 Rheumatoid arthritis with rheumatoid factor, unspecified (principal) | CPT/HCPCS: 99212 ==

== ENCOUNTER 2024-11-07 14:21 | Outpatient (AMB) | payer MEDICARE, MEDICAID, SELFPAY ==
--- OUTSIDE RECORDS SUMMARY | 2024-11-07 14:25 | XMS_ITS ---
Author Organization Aaron Rob MD Address [address] [place] [phone] Care Team Providers Care Assembly And Packing Supervisor Name Role Phone Aaron Rob Primary Care [...] Omeprazole 20 MG Take 1 capsule by [facility] once daily for 90 Active Synthroid [...] kg/m2 10/11/2024 weight is down 6 pounds [facility] e 07-06-24 Encounters Encounter Location Date Provider Diagnosis Aaron Rob MD [address] [place] [address] [place] [address] [id number] 10/11/2024 Aaron Rob Atrophy of vagina N9 [...] Up: 4 Months, Reason: Provider Name:Aaron deleon, 11/13/2024 02:00:00 PM, [address] [place] [address], [address], [place], [phone], Provider Name:Aaron deleon, 02/15/2025 10:15:00 AM, [address] [place] [address], [address], [place], [place], [phone], Provider Name:Aaron Atkinson ier, 04/16/2025 07:30:00 AM, [address], [address], [place], [place], [phone], Provider Name:Aaron Atkinson ier, 10/08/2025 07:45:00 AM, [address], [address], [place], [phone], Provider Name:Aaron Atkinson ier, 10/15/2025 09:30:00 AM, [address], [address], [place], [phone], Progress Notes * Selene BARRYDOB: [birth year] (69 yo F)Acc No.[id number]:10/11/2024 Patient:?Selene BARRY Provider:?Aaron Rob MD :1955???Age:69 Y???Sex:Female D ate:10/11/2024 Address:[address] [place] [id number] Subjective: * Chief Complaints: * ???Comp visit [...] Objective: * Vitals:?Ht: 63.5, Wt: 183, B CA:31.91, BP:152/78, Repeat BP:140/70, Wt-k.01. weight is down [...] Blood Small (1+) A Negative - ?Specific [place] - Urine 1.015 1.005-1.025 - ?Urine Protein [...] Casts Urine 0-2 0-2 - /LPF ???Lab:Comprehensive [place]. P vandana Fast (Order Date - 10/04/2024) [...] organomegaly , no masses palpable.?RECTAL EXAM:?done by cigarette paper tester.?FEMALE GENITOURINARY:?done by cigarette paper tester.?EXTREMITIES:?no clubbing, cyanosis, or edema.?NEUROLOGIC:?nonfocal, motor strength normal [...] MD Date:?0 10/11/2024 Generated for Julius pittman/Fito/Dionnaitting on:?11/07/2024 02:24 PM EDT History and Physical Notes * [...] or edema BREASTS: RECTAL EXAM: done by cigarette paper tester FEMALE GENITOURINARY: done by cigarette paper tester ORAL CAVITY: mucosa moist
--- OUTSIDE RECORDS SUMMARY | 2024-11-07 14:25 | XMS_ITS ---
Author Organization Aaron Rob MD Address [address] [place] [phone] Care Team Providers Care Site Leader Name Role Phone Aaron Rob Primary Care Provider Results Component Value Reference Range Notes Complete Blood Count Auto Di ff Reviewed date:10/04/2024 06:46:14 PM Interpretation: Performing Lab:[facility], [address] [place] [phone] Notes/Report: White Blood Count 6.5 4.8-10.8 X10*3/uL [...] NRBC Abs Auto 0.000 0.0-0.012 X10*3/uL Comprehensive [place]. Panel Fa st Reviewed date:10/05/2024 09:05:22 AM Interpretation: Performing Lab:[facility], [address] [place] [phone] Notes/Report: Sodium 144 135-145 mmol/L Potassium 3.9 [...] Panel Reviewed date:10/04/2024 06:22:42 PM Interpretation: Performing Lab:[facility], [address] [place] [phone] Notes/Report: Triglycerides 101 <150 mg/dL Desirable Triglyceride: [...] T4 Reviewed date:10/04/2024 06:24:59 PM Interpretation: Performing Lab:[address] [phone] Notes/Report: TSH reflex Free T4 0.34 0.32-4.0 uIU/mL Microalbumin, Random Reviewed date:10/04/2024 06:28:23 PM Interpretation: Performing Lab:[address] [phone] Notes/Report: Creatinine Urine 63.70 Microalbumin Urine 24.0 Microalbum/Creatinine Ratio Ur 37.6 <30 ug/mg cr Albumin/Creatinine Ratio Reference Ranges: Normal: < 30 ug/mg creatinine Microalbuminuria: 30 - 300 ug/mg creatinine Clinical Albuminuria: > 300 ug/mg creatinine Hemoglobin A1c Reviewed date:10/04/2024 06:25:17 PM Interpretation: Performing Lab:[facility], [address] [place] [phone] Notes/Report: Hemoglobin A1c % 5.8 <6.0 % [...] average glucose, using the formula of the R2W-Gllebwb Average Glucose study (ADAG), Diabetes Care, Vol.31,#8, Jan. 2007 UA ClnCatch+Micro w/rflx Cul t Reviewed date:10/05/2024 09:05:43 AM Interpretation: Performing Lab:[facility], [address] [place] [phone] Notes/Report: Urine, Clean Catch Color Urine Yellow Appearance Urine Clear PH 6.5 5.0-9.0 Glucose Urine UA Negative Negative mg/dL Urine Blood Small (1+) Negative Specific [place] - Urine 1.015 1.005-1.025 Urine Protein Negative [...] Location Date Provider Diagnosis Aaron Rob MD [address] [place] [address] [address] [place], [place] [phone] 10/04/2024 Aaron Rob Essential hypertensi on I10 [...] Of Treatment Next Appt Details Provider Name:Aaron villar, 11/13/2024 02:00:00 PM, [address] [place] [address], Suite [facility], [place], [place], [phone], Provider Name:Aaron Atkinson ier, 02/15/2025 10:15:00 AM, [address] [place] [address], Suite [facility], [place], [place], [phone], Provider Name:Aaron Atkinson ier, 04/16/2025 07:30:00 AM, [address] [place] [address], Suite [facility], [place], [place], [phone], Provider Name:Aaron Atkinson ier, 10/08/2025 07:45:00 AM, [address] [place] [address], Suite [facility], [place], [place], [phone], Provider Name:Aaron Atkinson ier, 10/15/2025 09:30:00 AM, [address] [place] [address], Suite [facility], [place], [place], [phone], Progress Notes * Selene BARRYDOB: [birth year] (69 yo F)Acc No.[id number]:10/04/2024 Progress Note Patient:?Selene BARRY Provider:?Aaron Rob MD :1955???Age:69 Y???Sex:Female D ate:10/04/2024 Address:[address] [place] [address] [place], [id number] Subjective: * Chief Complaints: * ???1. Yearly fasting labs. * Medical History:? Objective: * Vitals:? Assessment: * Assessment: 1.?Essential hypertension - I10 (Primary)???2.?Prediabetes - R73.09???3.?Lymphocytosis - D72.820???4.?Chronic systolic congestive heart failure - I50.22???5.?Hyperthyroidism - E05.90???6.?Hypercholesterolemia - E78.00??? Plan: * Treatment: 2.?Prediabetes?LAB: Complete Blood Count Auto Diff (Collection Date & Time - 10/04/2024 07:45 AM) ?LAB: [facility] [place]. Panel Fast (Collection Date & Time - [...] Time - 10/04/2024 07:45 AM) ?LAB: [facility] [place]. Panel Fast (Collection Date & Time - [...] Time - 10/04/2024 07:45 AM) ?LAB: [facility] [place]. Panel Fast (Collection Date & Time - [...] Time - 10/04/2024 07:45 AM) ?LAB: [facility] [place]. Panel Fast (Collection Date & Time 10/04/2024 [...] & Time 10/04/2024 07:45 AM) ?LAB: [facility] [place]. Panel Fast (Collection Date & Time 10/04/2024 [...] Time - 10/04/2024 07:45 AM) * Procedure Codes:?41427 VENIP UNCT, ROUTINE* * * The named appointment provid er may or may not be the originator of this progress note, and it is not deemed complete until electronically signed by the appointment provider. Sign off status: Pending * Provider:?Aaron Rob MD Date:?0 10/04/2024 Generated for Julius pittman/Fito/Jh on:?11/07/2024 02:24 PM EDT
--- OUTSIDE RECORDS SUMMARY | 2024-11-07 14:25 | XMS_ITS | Clinical Summary ---
Author Organization [employer] Address [address] [place] [address] [address] [place] [address] Care Team Providers Care Design Supervisor Name Role Phone Unavailable Primary Care Provider [...] calculus 03/01/2023 Localized gingival recession 03/01/2023 Immunizations Immunization Administration Dates Next Due Moderna Covid-19 Vaccine [...] Recently Relevant to Health Maintenance Insurance MEDICARE [facility] MEDICAID [facility] ADULT
--- OUTSIDE RECORDS SUMMARY | 2024-11-07 14:25 | XMS_ITS ---
Author Organization Aaron Rob MD Address [address] [place] [phone] Care Team Providers Care Scrap Kettle Tender Name Role Phone Aaron Rob Primary Care Provider Allergies No Known Allergies Results Component Value Reference Range Notes Hemoglobin A1c Reviewed date:11/06/2024 02:24:19 PM Interpretation: Performing Lab: Notes/Report: Hemoglobin A1c 7.6 Glucose, finger stick Reviewed date:11/06/2024 02:17:40 PM Interpretation: Performing Lab: Notes/Report: Value 404 REASON FOR VISIT must see labs Diabetes Medications Medication SIG (Take, Route, Frequency, Duration) Notes Start Date End Date Status Amoxicillin-Pot Clavulanate 875-125 MG 1 tablet Orally every 12 hrs for 7 days 08/25/2023 Not-Taking metFORMIN HCl 500 MG 1 tablet with a bayron l Orally twice a day for 30 days 11/06/2024 Active Docusate Sodium 100 MG 1 capsule as need ed Orally Once a day Not-Taking Metoprolol Succinate ER 50 MG 1 tablet Orally twice a day Active Enbrel 50 MG/ML 1 mL Subcutaneous Not-Taking Lasix 20 MG 1 tablet Orally Once a day Active Estradiol 0.1 MG/GM as directed Vaginal Two times a Week 10/11/2023 Active Ventolin HFA 108 (90 Base) MCG/ACT INHALE 1 PUFF BY MOUTH EVERY 4 HOURS NEEDED Active Albuterol Sulfate (2.5 MG/3ML) 0.083% 3 ml Inhalation Three times a day 06/15/2012 Active Atorvastatin Calcium 80 MG Take 1 tablet by mouth once daily Active Synthroid 100 MCG 1 tablet in the morn ing on an empty stomach Orally Once a day Active Calcium + D 315-200 MG-UNIT 1 tablet Orally 500/125 once a day Active Omeprazole 20 MG Take 1 capsule by mo uth once daily for 90 Active Aspir-81 81 MG 1 tablet Orally Once a day Active Magnesium 250 MG 1 capsule Orally Onc e a day Active Problems Problem Type SNOMED Code ICD Code Onset Dates Problem Status W/U Status Risk Notes Problem Type 2 diabetes mellitus treated without insulin (E11.9) Active confirmed Vital Signs Blood pressure systolic 132 mm Hg 11/07/19 25 Blood pressure diastolic 64 mm Hg 025 Height 63.5 in 11/06/2024 Weight 182 lbs 11/06/2024 BMI 31.73 kg/m2 11/06/2024 Encounters Encounter Location Date Provider Diagnosis Aaron Rob MD [facility] [address] [place] [phone] 11/06/2024 Aaron Rob Essential hypertension I10 ; Rheumatoid arthritis involving multiple sites, unspecified rheumatoid factor presence M06.9 and Type 2 diabetes mellitus treated without insulin E11.9 Assessments Encounter Date Diagnosis (ICD Code) Assessment Notes Treatment Notes Treatment Clinical Notes Section Notes 11/06/2024 Essential hypertension (ICD-10 - I10) 11/06/2024 Rheumatoid arthritis involving multiple sites, unspecified rheumatoid factor presence (ICD-10 - M06.9) 11/06/2024 Type 2 diabetes mellitus treated without insulin (ICD-10 - E11.9) will need to cancel her upcoming surgery until we get her \sugars under control, patient verbalized understanding of medication and directions for use Plan Of Treatment Medication Medication Name Sig Start Date Stop Date Notes metFORMIN HCl 500 MG 1 tablet with a bayron l Orally twice a day for 30 days 11/06/2024 Metoprolol Succinate ER 50 MG 1 tablet Orally twice a day Treatment Notes Assessment Notes Type 2 diabetes mellitus yuko ated without insulin will need to cancel her upcoming surgery until we get her \sugars under control, patient verbalized understanding of medication and directions for use Next Appt Details Follow Up: 1 Week, Reason: Provider Name:Aaron deleon, 11/13/2024 02:00:00 PM, [address] [place] [address], [address], [phone], Provider Name:Aaron deleon, 02/15/2025 10:15:00 AM, [address] [place] [address], [address], [phone], Provider Name:Aaron deleon, 04/16/2025 07:30:00 AM, [address] [place] [address], [address], [phone], Provider Name:Aaron deleon, 10/08/2025 07:45:00 AM, [address] [place] [address], [address], [phone], Provider Name:Aaron deleon, 10/15/2025 09:30:00 AM, [address] [place] [address], [address], [phone], Progress Notes * Selene BARRYDOB: [birth year] (69 yo F)Acc No.[id number]:11/06/2024 Patient:?Selene BARRY Provider:?Aaron Rob MD :1955???Age:69 Y???Sex:Female D ate:11/06/2024 Address:[address] [place] [address] [phone] Subjective: * Chief Complaints: * ???1. must see labs Diabetes . * HPI: ???Symptom(s):?patient is a 69 year old female?here to discuss diabetes. * ROS:?General/Constitutional:?Denies?Chills.?Denies?Fatigue.?Denies?Fever.?Denies?Headache.?ENT:?Denies?Sore throat.?Endocrine:?Denies?Difficulty sleeping.?Admits?Dizziness.?Denies?Excessive sweating.?Admits?Excessive thirst.?Admits?Frequent urination.?Respiratory:?Denies?Cough.?Denies?Shortness of breath at rest.?Denies?Shortness of breath with exertion.?Gastrointestinal:?Denies?Diarrhea.?Denies?Nausea.? * Medical History:?colonoscopy - 03/2008 hyperplastic polyp due 03/[address] Lan; Colonoscopy done 07/14/[address] 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 * Medications:?Taking Magnesiu m 250 MG Capsule 1 capsule Orally Once a day , Taking Aspir-81 81 MG Tablet Delayed Release 1 tablet Orally Once a day , Taking Calcium + D 315-200 MG-UNIT Tablet 1 tablet Orally 500/125 once a day , Taking Omeprazole 20 MG Capsule Delayed Release Take 1 capsule by mouth once daily , Taking Synthroid 100 MCG Tablet 1 tablet in the morning on an empty stomach Orally Once a day , Taking Lasix 20 MG Tablet 1 tablet Orally Once a day , Taking Albuterol Sulfate (2.5 MG/3ML) 0.083% Nebulization Solution 3 ml Inhalation Three times a day , Taking Atorvastatin Calcium 80 MG Tablet Take 1 tablet by mouth once daily , Taking Estradiol 0.1 MG/GM Cream as directed Vaginal Two times a Week , Taking Ventolin HFA 108 (90 Base) MCG/ACT Aerosol Solution INHALE 1 PUFF BY MOUTH EVERY 4 HOURS NEEDED , Taking Metoprolol Succinate ER 50 MG Tablet Extended Release 24 Hour 1 tablet Orally twice a day , Not-Taking/PRN Enbrel 50 MG/ML Solution Prefilled Syringe 1 mL Subcutaneous , Not-Taking/PRN Amoxicillin-Pot Clavulanate 875-125 MG Tablet 1 tablet Orally every 12 hrs , Not-Taking/PRN Docusate Sodium 100 MG Capsule 1 capsule as needed Orally Once a day , Medication List reviewed and reconciled with the patient * Allergies:?N.K.D.A. Objective: * Vitals:?Ht: 63.5, Wt: 182, B WA:31.73, BP:132/64, Wt-k.55. * Examination: ???General Examination: ?GENERAL APPEARANCE:?alert, well hydrated, in no distress.?HEAD:?normocephalic.?SKIN:?good turgor.?HEART:?regular rate and rhythm, no murmurs, rubs, gallops.?LUNGS:?no wheezes, rales, rhonchi, good air movement, clear to auscultation bilaterally.? Assessment: * Assessment: 1.?Essential hypertension - I10 (Primary)???2.?Rheumatoid arthritis involving multiple sites, unspecified rheumatoid factor presence - M06.9???3.?Type 2 diabetes mellitus treated without insulin - E11.9??? Plan: * Treatment: 2.?Type 2 diabetes mellitus treated without insulin? Notes: will need to cancel her upcoming surgery until we get her \sugars under control, patient verbalized understanding of medication and directions for use?? 3.?Others? Start metFORMIN HCl Tablet, 500 MG, 1 tablet with a meal, Orally, twice a day, 30 days, 60 Tablet, Refills 3.?? * Labs:? * ?Lab: Hemoglobin A1c (Co llection Date & Time - 11/06/2024) ? Value Reference Range ?Hemoglobin A1c 7.6 ?Lab: Glucose, finger stick (Collection Date & Time - 11/06/2024)* ? Value Reference Range ?Value 404 * Procedure Codes:?10051 ASSAY , GLUCOSE, BLOOD QUANT, Modifiers: QW , 72057 GLYCATED HEMOGLOBIN TEST, Modifiers: QW * Follow Up:?1 Week * * The named appointment provid er may or may not be the originator of this progress note, and it is not deemed complete until electronically signed by the appointment provider. Sign off status: Pending * Provider:?Aaron Rob MD Date:?0 11/06/2024 Generated for Julius pittman/Fito/Riosmitting on:?11/07/2024 02:24 PM EDT History and Physical Notes * HPI (History of Present Illness) Category Sub-Category Detail Notes Category Not es Symptom(s) patient is a 69 year old female here to discuss diabetes Examination Category Sub-Category Detail Notes Category Not es General Examination GENERAL APPEARANCE: alert, w ell hydrated, in no distress HEAD: normocephalic HEART: regular rate and rhy thm, no murmurs, rubs, gallops LUNGS: no wheezes, rales, r honchi, good air movement, clear to auscultation bilaterally SKIN: good turgor
--- OUTSIDE RECORDS SUMMARY | 2024-11-07 14:25 | XMS_ITS | Patient Health Record ---
Author Organization Aaron Rob MD Address [address] [place] [phone] Care Team Providers Care Soaker Name Role Phone Aaron Rob Primary Care Provider [phone] Allergies No Known Allergies Results Component Value Reference Range Notes Hemoglobin A1c Reviewed date:11/06/2024 02:24:19 PM Interpretation: Performing Lab: Notes/Report: Hemoglobin A1c 7.6 UA ClnCatch+Micro w/rflx Cul t Reviewed date:11/12/2023 06:36:15 PM Interpretation: Performing Lab:[facility], [address] [place] [phone] Notes/Report: Urine, Clean Catch Color Urine Yellow Appearance Urine Clear PH 7.0 5.0-9.0 Glucose Urine UA Negative Negative mg/dL Urine Blood Negative Negative Specific [place] - Urine 1.015 1.005-1.025 Urine Protein Negative Neg-Trace mg/dL Urine Ketones Negative Negative mg/dL Nitrite Urine Negative Negative Leukocyte Esterase Urine Large (3+) Negative RBC Urine 0-2 0-2 /HPF WBC Urine 0-5 0-5 /HPF Squamous Epithelial Cell Urine 6-10 0-2 /HPF Bacteria Urine 1+ None Seen Hyaline Casts Urine 0-2 0-2 /LPF Liver Panel Reviewed date:06/04/2024 12:45:25 PM Interpretation: Performing Lab:[facility], [address] [place] [phone] Notes/Report: Bilirubin Total 0.9 0.0-1.0 mg/dL Bilirubin Direct 0.3 0.0-0.5 mg/dL Aspartate Amino Transferase 30 5-31 U/L Alanine Aminotransferase 16 0-31 U/L Total Protein 7.3 6.5-8.0 g/dL Albumin Level 4.0 3.5-5.0 g/dL Alkaline Phosphatase 122 39-117 U/L Glucose Fasting Reviewed date:06/04/2024 12:49:55 PM Interpretation: Performing Lab:[facility], [address] [place] [phone] Notes/Report: Glucose Fasting 109 60-99 mg/dL A fasting glucose from 100-125 mg/dl is considered impaired (pre-diabetes). Lipid Panel with Reflex Reviewed date:06/04/2024 12:45:35 PM Interpretation: Performing Lab:[facility], [address] [place] [phone] Notes/Report: Triglycerides 114 <150 mg/dL Desirable Triglyceride: [...] A1c Reviewed date:06/04/2024 12:44:41 PM Interpretation: Performing Lab:[facility], [address] [place] [phone] Notes/Report: Hemoglobin A1c % 5.3 <6.0 % [...] average glucose, using the formula of the Z4X-Odzfvmn Average Glucose study (ADAG), Diabetes Care, Vol.31,#8, Jan. 2007 Complete Blood Count Auto Di ff Reviewed date:10/04/2024 06:46:14 PM Interpretation: Performing Lab:[facility], [address] [place] [phone] Notes/Report: White Blood Count 6.5 4.8-10.8 X10*3/uL [...] NRBC Abs Auto 0.000 0.0-0.012 X10*3/uL Comprehensive [place]. Panel Fa st Reviewed date:10/05/2024 09:05:22 AM Interpretation: Performing Lab:[facility], [address] [place] [phone] Notes/Report: Sodium 144 135-145 mmol/L Potassium 3.9 [...] Panel Reviewed date:10/04/2024 06:22:42 PM Interpretation: Performing Lab:[facility], [address] [place] [phone] Notes/Report: Triglycerides 101 <150 mg/dL Desirable Triglyceride: [...] T4 Reviewed date:10/04/2024 06:24:59 PM Interpretation: Performing Lab:[facility], [address] [place] [phone] Notes/Report: TSH reflex Free T4 0.34 0.32-4.0 uIU/mL Microalbumin, Random Reviewed date:10/04/2024 06:28:23 PM Interpretation: Performing Lab:[facility], [address] [place] [phone] Notes/Report: Creatinine Urine 63.70 Microalbumin Urine 24.0 Microalbum/Creatinine Ratio Ur 37.6 <30 ug/mg cr Albumin/Creatinine Ratio Reference Ranges: Normal: < 30 ug/mg creatinine Microalbuminuria: 30 - 300 ug/mg creatinine Clinical Albuminuria: > 300 ug/mg creatinine Hemoglobin A1c Reviewed date:10/04/2024 06:25:17 PM Interpretation: Performing Lab:[facility], [address] [place] [phone] Notes/Report: Hemoglobin A1c % 5.8 <6.0 % [...] average glucose, using the formula of the U1K-Mresmyc Average Glucose study (ADAG), Diabetes Care, Vol.31,#8, Jan. 2007 UA ClnCatch+Micro w/rflx Cul t Reviewed date:10/05/2024 09:05:43 AM Interpretation: Performing Lab:[facility], [address] [place] [phone] Notes/Report: Urine, Clean Catch Color Urine Yellow Appearance Urine Clear PH 6.5 5.0-9.0 Glucose Urine UA Negative Negative mg/dL Urine Blood Small (1+) Negative Specific [place] - Urine 1.015 1.005-1.025 Urine Protein Negative Neg-Trace mg/dL Urine Ketones Negative Negative mg/dL Nitrite Urine Negative Negative Leukocyte Esterase Urine Trace Negative RBC Urine 11-20 0-2 /HPF WBC Urine 6-10 0-5 /HPF Squamous Epithelial Cell Urine 6-10 0-2 /HPF Bacteria Urine 3+ None Seen Hyaline Casts Urine 0-2 0-2 /LPF Glucose, finger stick Reviewed date:11/06/2024 02:17:40 PM Interpretation: Performing Lab: Notes/Report: Value 404 TSH reflex Free T4 Reviewed date:07/06/2024 05:11:26 PM Interpretation: Performing Lab:[facility], [address] [place] [phone] Notes/Report: TSH reflex Free T4 0.16 0.32-4.0 uIU/mL Urine Culture Reviewed date:11/12/2023 06:27:53 PM Interpretation: Performing Lab:[address] [phone] Notes/Report: Urine Culture Report Result Urine Culture 10,000 to 50,000 cfu/ml Urine Culture Mixed bacterial herson a characteristic of Urine Culture urogenital contamination. Complete Blood Count Auto Di ff Reviewed date:01/23/2024 12:45:16 PM Interpretation: Performing Lab:[address] [phone] Notes/Report: White Blood Count 6.1 4.8-10.8 X10*3/uL [...] te Reviewed date:01/23/2024 12:09:33 PM Interpretation: Performing Lab:[address] [phone] Notes/Report: Erythrocyte Sedimentation Rate 2 0-20 MM/HR Patients with polycythemia and many hemoglobin abnormalities may have depressed sed rates whereas patients with anemia may have elevated sed rates. Comprehensive Met. Panel Reviewed date:01/23/2024 12:12:34 PM Interpretation: Performing Lab:[address] [address] Notes/Report: Sodium 141 135-145 mmol/L Potassium 4.0 3.3-5.1 mmol/L Chloride 110 96-108 mmol/L Carbon Dioxide 22 22-29 mmol/L Anion Gap 13 12-20 Blood Urea Nitrogen 20 9-16 mg/dL Creatinine 0.67 0.5-1.4 mg/dL Estimated Glomerular Filt Rate > 60 NOTE: For -[place] individuals, multiply the result by 1.210. Chronic [...] Protein Reviewed date:01/23/2024 12:09:42 PM Interpretation: Performing Lab:[facility], [address] [place] [phone] Notes/Report: C Reactive Protein 0.22 < or = 0.50 mg/dL XR knee LT 3V Reviewed date:04/27/2024 05:15:34 PM Interpretation: Performing Lab: Notes/Report: [address] [address] XRay Report Signed Patient: Selene Barry MR#: [id number] 3611 : 1955 Acct:[id number] Age/Sex: 68 / F ADM Date: 02/03/24 Loc: [facility] Attending Dr: Kasey LUKE Ordering Physician: Kasey Wesley Date of Service: 02/03/24 Procedure(s): XR knee LT 3V Accession Number(s): [id number] cc: Aaron Rob MD; Kasey Wesley EXAMINATION: [...] Mac Arce in OV> 04/27/24 1138 DD/ TD/TT: 02/03/24 1022 Parts Counter Associate: [address] [address] XRay Report Signed Patient: Selene Barry MR#: [id number] 3611 : 1955 Acct:[id number] Age/Sex: 68 / F ADM Date: 02/03/24 Loc: HO.XRAY Attending Dr: Kasey Wesley 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 Ordering Physician: Kasey Wseley Date of Service: 02/03/24 Procedure(s): XR kne e LT 3V Accession Number(s): [id number] cc: Aaron Rob MD; Kasey Wesley EXAMINATION: [...] 04/27/24 1138 DD/ 0954 TD/TT: 02/03/24 1022 Parts Counter Associate: XR foot LT min 3V Reviewed date:04/27/2024 11:59:11 AM Interpretation: Performing Lab: Notes/Report: [address] [address] XRay Report Signed Patient: Selene Barry MR#: [id number] 3611 : 1955 Acct:[id number] Age/Sex: 68 / F ADM Date: 02/03/24 Loc: CAR[facility] Attending Dr: Kasey LUKE Ordering Physician: Kasey Wesley Date of Service: 02/03/24 Procedure(s): XR foot LT min 3V Accession Number(s): [id number] cc: Aaron Rob MD; Kasey Wesley EXAMINATION: [...] 04/27/2024 10:45 AM EDT Dictated By: Mac Spencer Signed By: <Electronically signed by Mac Arce in OV> 04/27/24 1045 DD/ 0954 TD/TT: 02/03/24 1022 Parts Counter Associate: [place] [address] XRay Report Signed Patient: Selene Barry MR#: [id number] 3611 : 1955 Acct:[id number] Age/Sex: 68 / F ADM Date: 02/03/24 Loc: [facility] Attending Dr: Kasey LUKE Ordering Physician: Kasey Wesley Date of Service: 02/03/24 Procedure(s): XR sea t LT min 3V Accession Number(s): [id number] cc: Aaron Rob MD; Kasey Wesley EXAMINATION: [...] 04/27/24 1045 DD/ 0954 TD/TT: 02/03/24 1022 Parts Counter Associate: XR lumbar spine 4V min Reviewed date:04/11/2024 06:48:51 PM Interpretation: Performing Lab: Notes/Report: [address] [address] XRay Report Signed Patient: Selene Barry MR#: [id number] 3611 : 1955 Acct:[id number] Age/Sex: 68 / F ADM Date: 02/03/24 Loc: CAR[facility] Attending Dr: Kasey LUKE Ordering Physician: Kasey Wesley Date of Service: 02/03/24 Procedure(s): XR lumbar spine 4V min Accession Number(s): [id number] cc: Aaron Rob MD; Kasey Wesley EXAMINATION: [...] 04/09/24 0840 DD/ 0954 TD/TT: 02/03/24 1022 Parts Counter Associate: [place] [address] XRay Report Signed Patient: Selene Barry MR#: [id number] 3611 : 1955 Acct:[id number] Age/Sex: 68 / F ADM Date: 02/03/24 Loc: CAR[facility] Attending Dr: Kasey LUKE Ordering Physician: Kasey Wesley Date of Service: 02/03/24 Procedure(s): XR lum bar spine 4V min Accession Number(s): [id number] cc: Aaron Rob MD; Kasey Wesley EXAMINATION: [...] severe thoracolumbar rotatory levoscoliosis. There is mild build technician ior disc space narrowing at T12-L1 and [...] 04/09/24 0840 DD/ 0954 TD/TT: 02/03/24 1022 Parts Counter Associate: RONALD MR lumbar spine wo con Reviewed date:03/15/2024 12:30:31 PM Interpretation: Performing Lab: Notes/Report: [address] [address] Magnetic Resonance Report Signed Patient: Selene Barry MR#: [id number] 3611 : 1955 Acct:[id number] Age/Sex: 68 / F ADM Date: 03/14/24 Loc: HO.MRI Attending Dr: Kasey LUKE Ordering Physician: Kasey Wesley Date of Service: 03/14/24 Procedure(s): MR lumbar spine wo con Accession Number(s): [id number] cc: Aaron Rob MD; Kasey Wesley EXAMINATION: [...] OV> 03/15/24 1001 DD/ 10 TD/TT: 03/14/242027 Parts Counter Associate: [place] [address] Magnetic Resonance Report Signed Patient: Selene Barry MR#: [id number] 3611 : 1955 Acct:[id number] Age/Sex: 68 / F ADM Date: 03/14/24 Loc: HO.MRI Attending Dr: Kasey LUKE Ordering Physician: Kasey Wesley Date of Service: 03/14/24 Procedure(s): MR lum bar spine wo con Accession Number(s): [id number] cc: Aaron Rob MD; Kasey Wesley EXAMINATION: [...] OV> 03/15/24 1001 DD/ 10 TD/TT: 03/14/242027 Parts Counter Associate: MARIA ISABEL MM tomosynthesis screening B I Reviewed date:03/28/2024 03:56:48 PM Interpretation: Performing Lab: Notes/Report: [facility] [place], [place] [address] Mammography Report Signed Patient: Selene Barry MR#: [id number] 3611 : 1955 Acct:[id number] Age/Sex: 68 / F ADM Date: 03/16/24 Loc: HO.MAMMO Attending Dr: Power Becker MD Ordering Physician: Power Becker MD Results: 1Negativ e Date of Service: 03/16/24 Follow Up: 1 Year From [facility] ina Mammogram Procedure(s): MM tomosynthesis screening BI Accession Number(s): [id number] cc: Aaron Rob MD; Power Becker MD [...] 03/28/24 1159 DD/ 0830 TD/TT: 03/16/24 0840 Parts Counter Associate: [facility] [address] [place], [place] [address] Mammography Report Signed Patient: Selene Barry MR#: [id number] 3611 : 1955 Acct:[id number] Age/Sex: 68 / F ADM Date: 03/16/24 Loc: HO.MAMMO Attending Dr: Power Becker MD Ordering Physician: Power Becker MD Results: 1Negativ e Date of Service: 03/16/24 Follow Up: 1 Year From Orig inal Mammogram Procedure(s): MM tomosynthesis screening BI Accession Number(s): [id number] cc: Aaron Rob MD; Power Becker MD [...] 03/28/24 1159 DD/ 0830 TD/TT: 03/16/24 0840 Parts Counter Associate: XR DEXA axial skeleton Reviewed date:04/03/2024 02:11:53 PM Interpretation: Performing Lab: Notes/Report: [facility]'[address] [place] [address] Mammography Report Signed Patient: Selene Barry MR#: [id number] 3611 : 1955 Acct:[id number] Age/Sex: 68 / F ADM Date: 03/16/24 Loc: HO.MAMMO Attending Dr: Power Becker MD Ordering Physician: Power Becker MD Results: Date of Service: 03/16/24 Follow Up: Procedure(s): XR DEXA axial skeleton Accession Number(s): [id number] cc: Aaron Rob MD; Power Becker MD EXAMINATION: BONE DENSITOMETRY CLINICAL INDICATION: Menopause. COMPARISON: Previous BD dated 10/09/2021 and baseline BD dated 10/05/2016. TECHNIQUE: Using a [employer] DXA System (software version: 13.1) manufactured by [employer], dual-energy x-ray absorptiometry was performed of the [...] 04/03/24 0839 DD/ 0845 TD/TT: 03/16/24 0900 Parts Counter Associate: [facility] [address] [place] [address] Mammography Report Signed Patient: Selene Barry MR#: [id number] 3611 : 1955 Acct:[id number] Age/Sex: 68 / F ADM Date: 03/16/24 Loc: HO.MAMMO Attending Dr: Power Becker MD Ordering Physician: Power Becker MD Results: Date of Service: 03/16/24 Follow Up: Procedure(s): XR DEX A axial skeleton Accession Number(s): [id number] cc: Aaron Rob MD; Power Becker MD EXAMINATION: BONE DENSITOMETRY CLINICAL INDICATION: Menopause. COMPARISON: Previous BD dated 10/09/2021 and baseline BD dated 10/05/2016. TECHNIQUE: Using a [employer] DXA System (software version: 13.1) manufactured [employer], dual-energy x-ray absorptiometry was performed of the [...] 04/03/24 0839 DD/ 0845 TD/TT: 03/16/24 0900 Parts Counter Associate: ABUNDIO MR thoracic spine wo con Reviewed date:04/04/2024 06:26:06 PM Interpretation: Performing Lab: Notes/Report: [address] [address] Magnetic Resonance Report Signed Patient: Selene Barry MR#: [id number] 3611 : 1955 Acct:[id number] Age/Sex: 68 / F ADM Date: 04/02/24 Loc: HO.MRI Attending Dr: Osmel MAARDIAGA Ordering Physician: Osmel Mckoy Date of Service: 04/02/24 Procedure(s): MR thoracic spine wo con Accession Number(s): [id number] cc: Aaron Rob MD; Osmel Mckoy EXAMINATION: [...] 04/03/24 1509 DD/ 1830 TD/TT: 04/02/24 1855 Parts Counter Associate: [place] [address] Magnetic Resonance Report Signed Patient: Selene Barry MR#: [id number] 3611 : 1955 Acct:[id number] Age/Sex: 68 / F ADM Date: 04/02/24 Loc: HO.MRI Attending Dr: Osmel MARADIAGA Ordering Physician: Osmel Mckoy Date of Service: 04/02/24 Procedure(s): MR thoracic spine wo con Accession Number(s): [id number] cc: Aaron Rob MD; Osmel Mckoy EXAMINATION: [...] 04/03/24 1509 DD/ 1830 TD/TT: 04/02/24 1855 Parts Counter Associate: Complete Blood Count Auto Di ff Reviewed date:05/03/2024 12:29:13 PM Interpretation: Performing Lab:[facility], [address] [place] [phone] Notes/Report: White Blood Count 6.5 4.8-10.8 X10*3/uL [...] te Reviewed date:05/03/2024 12:46:33 PM Interpretation: Performing Lab:[address] [address] Notes/Report: Erythrocyte Sedimentation Rate 5 0-20 MM/HR Patients with polycythemia and many hemoglobin abnormalities may have depressed sed rates whereas patients with anemia may have elevated sed rates. Comprehensive Met. Panel Reviewed date:05/03/2024 12:46:22 PM Interpretation: Performing Lab:[address] [address] Notes/Report: Sodium 141 135-145 mmol/L Potassium 4.5 3.3-5.1 mmol/L Slight Hemolysis.Interpret result with caution. Chloride 108 96-108 mmol/L Carbon Dioxide 21 22-29 mmol/L Anion Gap 17 12-20 Blood Urea Nitrogen 15 9-16 mg/dL Creatinine 0.60 0.5-1.4 mg/dL Estimated Glomerular Filt Rate > 60 NOTE: For -[place] individuals, multiply the result by 1.210. Chronic [...] Protein Reviewed date:05/03/2024 12:28:49 PM Interpretation: Performing Lab:[address] [address] Notes/Report: C Reactive Protein 0.61 < or = 0.50 mg/dL Hepatitis A,B,C Profile Reviewed date:05/03/2024 12:28:29 PM Interpretation: Performing Lab:[facility], [address] [place] [phone] Notes/Report: Hepatitis A Antibody IgM Nonreactive Nonreactive [...] TB Reviewed date:05/06/2024 12:59:20 PM Interpretation: Performing Lab:[facility], [address] [place] [phone] Notes/Report: TSpotTB Negative Negative A negative test [...] Passed For additional information, please refer to http://education.zoojoo.BEs.Gradeable/fa q/UEU698 (This link is being provided for informational/ educational purposes only.) THIS TEST WAS PERFORMED AT: [facility] [address] [place] [address] RACHELL OLIVAREZ MD,PHD CT lumbar spine wo con Reviewed date:07/23/2024 05:20:34 PM Interpretation: Performing Lab: Notes/Report: [address] [place] [address] CT Scan Report Signed Patient: Selene Barry MR#: [id number] 3611 : 1955 Acct:[id number] Age/Sex: 69 / F ADM Date: 05/11/24 Loc: HO.CT Attending Dr: Osmel MARADIAGA Ordering Physician: Osmel Mckoy Date of Service: 05/11/24 Procedure(s): CT lumbar spine wo IV con Accession Number(s): [id number] cc: Aaron Rob MD; Osmel Mckoy Report Number: [id number]: Total DLP = 681.00 mGy-cm EXAMINATION: CT [...] by Marito Benitez DO in OV> 07/23/24 5771 DD/ 1318 TD/TT: 05/11/24 1345 Parts Counter Associate: [place] [address] [address] Scan Report Signed Patient: Selene Barry MR#: [id number] 3611 : 1955 Acct:[id number] Age/Sex: 69 / F ADM Date: 05/11/24 Loc: HO.CT Attending Dr: Osmel MARADIAGA Ordering Physician: Osmel Mckoy Date of Service: 05/11/24 Procedure(s): CT lum bar spine wo IV con Accession Number(s): [id number] cc: Aaron Rob MD; Osmel Mckoy Report Number: [id number]: Total DLP = 681.00 mGy-cm EXAMINATION: CT [...] of S1. 1. No evidence of ac [place] fracture or traumatic subluxation of the lumbar [...] 07/23/24 0441 DD/ 1318 TD/TT: 05/11/24 1345 Parts Counter Associate: KYAW Monsivais Reviewed date:06/04/2024 12:48:56 PM Interpretation: Performing Lab:[facility], [address] [place] [phone] Notes/Report: Afshan Monsivais See Note Specimen held untested for 24 hours; Call to request Chemistry testing. XR chest 2V Reviewed date:07/06/2024 12:50:13 PM Interpretation:BRINDA 07/06/24 Performing Lab: Notes/Report: [address] [address] XRay Report Signed Patient: Selene Barry MR#: [id number] 3611 : 1955 Acct:[id number] Age/Sex: 69 / F ADM Date: 06/29/24 Loc: HO.XRAY Attending Dr: Aaron Rob MD Ordering Physician: Aaron Rob MD Date of Service: 06/29/24 Procedure(s): XR chest 2V Accession Number(s): [id number] cc: Aaron Rob MD CLINICAL HISTORY: Acute [...] 07/02/24 1055 DD/ 1055 TD/TT: 07/02/24 1055 Parts Counter Associate: [address] [address] XRay Report Signed Patient: Selene Barry MR#: [id number] 3611 : 1955 Acct:[id number] Age/Sex: 69 / F ADM Date: 06/29/24 Loc: HO.XRAY Attending Dr: Aaron Rob MD Ordering Physician: Aaron Rob MD Date of Service: 06/29/24 Procedure(s): XR tigist st 2V Accession Number(s): [id number] cc: Aaron Rob MD CLINICAL HISTORY: Ac [place] URI Chest two views Comparison: None Findings: [...] 07/02/24 1055 DD/ 1055 TD/TT: 07/02/24 1055 Parts Counter Associate: Free T4 (Free Thyroxine) Reviewed date:07/06/2024 05:11:14 PM Interpretation: Performing Lab:[facility], [address] [place] [phone] Notes/Report: Free T4 (Free Thyroxine) 1.31 0.71-1.85 ng/dL Afshan Monsivais Reviewed date:07/06/2024 01:24:48 PM Interpretation: Performing Lab:[facility], [address] [place] [phone] Notes/Report: Afshan Monsivais See Note Specimen held untested for 24 hours; Call to request Chemistry testing. Afshan Monsivais Reviewed date:10/04/2024 06:20:14 PM Interpretation: Performing Lab:[facility], [address] [place] [phone] Notes/Report: Afshan Monsivais See Note Specimen held untested for 24 hours; Call to request Chemistry testing. Urine Culture Reviewed date:10/05/2024 09:02:59 AM Interpretation: Performing Lab:[facility], [address] [place] [phone] Notes/Report: Urine Culture No growth. XR chest 2V Reviewed date:10/19/2024 10:26:20 AM Interpretation: Performing Lab: Notes/Report: [address] [address] XRay Report Signed Patient: Selene Barry MR#: [id number] 3611 : 1955 Acct:[id number] Age/Sex: 69 / F ADM Date: 10/17/24 Loc: CARM[facility] Attending Dr: Aaron Rob MD Ordering Physician: Aaron Rob MD Date of Service: 10/17/24 Procedure(s): XR chest 2V Accession Number(s): [id number] cc: Aaron Rob MD CLINICAL HISTORY: MILD [...] in OV> 10/18/242154 DD/ 54 TD/TT: 10/18/242154 Parts Counter Associate: [address] [address] XRay Report Signed Patient: Selene Barry MR#: [id number] 3611 : 1955 Acct:[id number] Age/Sex: 69 / F ADM Date: 10/17/24 Loc: CARMEL Attending Dr: Aaron Rob MD Ordering Physician: Aaron Rob MD Date of Service: 10/17/24 Procedure(s): XR tigist st 2V Accession Number(s): [id number] cc: Aaron Rob MD CLINICAL HISTORY: OR LD INTERMITTENT ASTHMA --- Additional Notes or [...] in OV> 10/18/242154 DD/ 54 TD/TT: 10/18/242154 Parts Counter Associate: Comprehensive Met. Panel (No t yet reviewed by provider) Interpretation:[facility] 11/06 Performing Lab:[address] [address] Notes/Report: Sodium 134 135-145 mmol/L Potassium 4.3 [...] ff Reviewed date:11/02/2024 12:26:56 PM Interpretation: Performing Lab:[address] [address] Notes/Report: White Blood Count 7.9 4.8-10.8 X10*3/uL [...] te Reviewed date:11/02/2024 05:05:39 PM Interpretation: Performing Lab:[facility], [address] [place] [phone] Notes/Report: Erythrocyte Sedimentation Rate 12 0-20 MM/HR Patients with polycythemia and many hemoglobin abnormalities may have depressed sed rates whereas patients with anemia may have elevated sed rates. C Reactive Protein Reviewed date:11/02/2024 01:00:24 PM Interpretation: Performing Lab:[facility], [address] [place] [address] Notes/Report: C Reactive Protein 1.94 < or [...] 0 07/26/2024 03:26:47 PM >info faxed with [facility] office note Referral Priority Routine Referral Appointment Date 07/30/2024 Medications Medication SIG (Take, Route, Frequency, Duration) Notes Start Date End Date Status Amoxicillin-Pot Clavulanate 875-125 MG 1 tablet Orally every 12 hrs for 7 days 08/25/2023 Not-Taking Synthroid 100 MCG 1 tablet in the morn ing on an empty stomach Orally Once a day Active metFORMIN HCl 500 MG 1 tablet with a bayron l Orally twice a day for 30 days 11/06/2024 Active Lasix 20 MG 1 tablet Orally Once a day Active Calcium + D 315-200 MG-UNIT 1 tablet Orally 500/125 once a day Active Docusate Sodium 100 MG 1 capsule as need ed Orally Once a day Not-Taking Omeprazole 20 MG Take 1 capsule by [facility] once daily for 90 Active Estradiol 0.1 MG/GM as directed Vaginal Two times a Week 10/11/2023 Active Ventolin HFA 108 (90 Base) MCG/ACT INHALE 1 PUFF BY MOUTH EVERY 4 HOURS NEEDED Active Albuterol Sulfate (2.5 MG/3ML) 0.083% 3 ml Inhalation Three times a day 06/15/2012 Active Atorvastatin Calcium 80 MG Take 1 tablet by mouth once daily Active Aspir-81 81 MG 1 tablet Orally Once a day Active Metoprolol Succinate ER 50 MG 1 tablet Orally twice a day Active Magnesium 250 MG 1 capsule Orally Onc e a day Active Enbrel 50 MG/ML 1 mL Subcutaneous Not-Taking Immunizations Vaccine Route Administration Date Status Comme [...] W/U Status Risk Notes Problem Hypercoagulable state (02407238) Secondary hypercoagulable state (289.82) Active confirmed Problem Spinal stenosis (99881118) Spinal stenosis (724.00) Active confirmed Problem 75662708 Age-related osteoporosis without current pathological fracture (M81.0) Active confirmed Problem 641954888 Thyroid nodule (E04.1) Active confirm ed Problem 81967751 Lymphocytosis (D72.820) Active confirmed Problem 373466545628663 USP (curre nt) use of systemic steroids (Z79.52) Active confirmed Problem 84605270 Lumbar disc dise ase (M51.9) Active confirmed Problem 86211641 Essential hypert ension (I10) Active confirmed Problem 727275323 Mild intermitten t asthma without complication (J45.20) Active confirmed Problem 0590011 Prediabetes (R73.09) Active confirmed Problem 977047445 Chronic systolic congestive heart failure (I50.22) Active confirmed Problem 44163751 Hyperthyroidism (E05.90) Active confirmed Problem 858085037 Rheumatoid arthr itis involving multiple sites, 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) Active confirmed Problem 591696485 Graves disease (E05.00) Active confirmed Problem 285412788 History of coron marie artery bypass graft (Z95.1) Active confirmed Problem 7106042 Thyromegaly (E04.9) Active confirmed Problem 908406544 Non-rheumatic mi tral regurgitation (I34.0) Active confirmed Problem 112206753 Thyroid cancer (C73) Active confirmed Problem 845237629 Vaginal bleeding (N93.9) Active confirmed Problem 68609927 Sciatica of righ t side (M54.31) Active confirmed Problem 91118249 Hypercholesterol emia (E78.00) Active confirmed Problem 9829489172507 Coronary artery disease of [place] artery of [place] heart with stable angina pectoris (I25.118) Active confirmed Problem 018800930 Atrophy of vagin a (N95.2) Active confirmed Problem 720190267 Vaginal prolapse (N81.10) Active confirmed Problem Type II diabetes mellitus without complication (135648385) Type 2 diabetes mellitus treated without insulin (E11.9) Active confirmed Vital Signs Blood pressure diastolic 64 mm Hg 11/06/2024 Height 63.5 in 11/06/2024 Blood pressure systolic 132 mm Hg 11/06/2024 Weight 182 lbs 11/06/2024 BMI 31.73 kg/m2 11/06/2024 Encounters Encounter Location Date Provider Diagnosis Aaron Rob MD [address] [place] [address] [id number] 11/11/2023 Aaron Rob Hematuria, unspecifi ed type R31.9 Aaron Rob MD [address] [place] [address] [id number] 06/04/2024 Aaron Rob Prediabetes R73.09 a nd Hypercholesterolemia E78.00 Aaron Rob MD [address] [place] [address] [id number] 10/04/2024 Aaron Rob Essential hypertensi on I10 ; Prediabetes R73.09 ; Lymphocytosis D72.820 ; Chronic systolic congestive heart failure I50.22 ; Hyperthyroidism E05.90 and Hypercholesterolemia E78.00 Aaron Rob MD [address] [place] [address] [id number] 11/06/2024 Aaron Rob Essential hypertensi on I10 ; Rheumatoid arthritis involving multiple sites, unspecified rheumatoid factor presence M06.9 and Type 2 diabetes mellitus treated without insulin E11.9 Aaron Rob MD [address] [place] [address] [id number] 04/16/2024 Aaron Rob Encounter for administration of vaccine Z23 Aaron Rob MD [address] [place] [address] [id number] 06/11/2024 Aaron Rob Vaginal prolapse N81 .10 ; Essential hypertension I10 and Rheumatoid arthritis involving multiple sites, unspecified rheumatoid factor presence M06.9 Aaron Rob MD [address] [place] [address] Drive [address] [place] [address] [id number] 06/21/2024 Aaron Rob Mild intermittent as thma without complication J45.20 Aaron Rob MD [address] [place] [address] [id number] 06/29/2024 Aaron Rob Acute URI J06.9 Aaron Rob MD [address] [place] [address] Drive [address] [place] [address] [id number] 07/06/2024 Aaron Rob Mild intermittent as thma without complication J45.20 ; Hyperthyroidism E05.90 and Pneumonitis, interstitial J84.89 Aaron Rob MD [address] [place] [address] [id number] 10/11/2024 Aaron Rob Atrophy of vagina N9 [...] 10/04/2024 Essential hypertensi on (ICD-10 - I10) 11/06/2024 Essential hypertensi on (ICD-10 - I10) 11/06/2024 Rheumatoid arthritis involving multiple sites, unspecified rheumatoid factor presence (ICD-10 - M06.9) 04/16/2024 Encounter for administration of vaccine (ICD-10 - Z23) 06/11/2024 Vaginal prolapse (ICD-10 - N81.10) is trying to decide if surgery or pessary. will try pessary, 06/21/2024 Mild intermittent asthma without complication (ICD-10 - J45.20) 06/29/2024 Acute URI (ICD-10 - J06.9) THE XRAY ORDER WAS FAXED TO [facility] PATIENT REG. PATIENT AWARE, patient verbalized understanding [...] have surgery 10/04/2024 Prediabetes (ICD-10 - R73.09) 11/06/2024 Type 2 diabetes mellitus treated without insulin (ICD-10 - E11.9) will need to cancel her upcoming surgery until we get her \sugars under control, patient verbalized understanding of medication and directions for use 06/11/2024 Essential hypertensi on (ICD-10 - I10) [...] 08/03/2024 Next Appt Details Provider Name:Aaron deleon, 11/13/2024 02:00:00 PM, [address] [place] [address], [address], [phone], Provider Name:Aaron deleon, 02/15/2025 10:15:00 AM, [address] [place] [address], [address], [id number], Provider Name:Aaron deleon, 04/16/2025 07:30:00 AM, [address] [place] [address], [address], [phone], Provider Name:Aaron deleon, 10/08/2025 07:45:00 AM, [address], [address], [place], [place], [phone], Provider Name:Aaron Atkinson ier, 10/15/2025 09:30:00 AM, [address], [address], [place], [place], [phone], Insurance Providers Payer Name Payer Address Payer Phone Subscriber Number Group Number Insured Name Patient Relationship to Insured Coverage Start Date Coverage End Date [employer] [address] [place] [address] [id number] Selene Valdovinos Self [place] [address] [id number] Selene Valdovinos Self - patient is the insured Medical (General) History Medical History History ICD Code colonoscopy - 03/2008 hyperp lastic polyp due 03/[address] Lan; Colonoscopy done 07/14/[address] 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
--- OUTSIDE RECORDS SUMMARY | 2024-11-07 14:25 | XMS_ITS | Encounter Summary ---
Author Organization [employer] Address [address] [facility] 7[address] [place] [address] Care Team Providers Care Documentation Consultant Name Role Phone Unavailable Primary Care Provider Unavailabl e Encounter Details Date Type Department Care Team (Late st Contact Info) Description 03/01/2023 Abstract [facility] [address] [place] [address] Sunny Martin, DMD [address] [place] [address] Social History Tobacco Use Types Packs/Day Years [...]
--- NOTE | 2024-11-07 14:27 | HO.SPINEOV ---
Intake Visit Reasons: meet sx 11/15 Intake Note: Ms. Barry is here to Discuss surgery and meet Dr. Beltran. Public Policy Professor Required: No Allergies No Known Allergies [No Known Allergies*] Allergy (Verified 11/07/24 14:29) Assessment & Plan Assessment & Plan (1) Lumbar spinal stenosis: Code(s): M48.061 - Spinal stenosis, lumbar region without neurogenic claudication Category: Medical Plan Dear colleague, On 11/07/2024, I saw Selene Barry for preoperative visit. She is scheduled to undergo a left L5-S1 decompression on 11/15/2024. She was already cleared preoperatively by anesthesia. However, her latest lab values showed that her glucose was above 300. Interestingly, her A1c a month ago was 5.8. The patient tells me that you would like to postpone the surgery until the glucose levels are stabilized. I told the patient that this is an elective surgery and agree with your recommendation. She will call my office when you give the green light for me to perform the surgery. Questions regarding the surgery and expected postoperative course were answered satisfactorily. I spent 20 minutes in his consult. Rodney Beltran MD, PhD Spine Fellowship Trained Neurosurgeon Director, [facility] [employer] Coding Level of Care Code Est Pt Level 3 (07371) Diagnoses Lumbar spinal stenosis M48.061
== END 2024-11-07 15:13 | disposition home or self-care (01) ==
LOC: HO.HNS 14:22
PROVIDERS: PCP Internal Medicine; Visit Provider Neurological Surgery
DX: M48.061 Spinal stenosis, lumbar region without neurogenic claudication (principal)
CPT/HCPCS: 99213

== ENCOUNTER → 2024-11-07 14:21 | Outpatient (BNVA) | payer MEDICARE, MEDICAID, SELFPAY | PROVIDERS: PCP Internal Medicine; Visit Provider Neurological Surgery | DX: M48.061 Spinal stenosis, lumbar region without neurogenic claudication (principal) | CPT/HCPCS: 99212 ==

== ENCOUNTER 2024-11-14 08:09 | Outpatient (REF) | payer MEDICARE, MEDICAID, SELFPAY ==
[2024-11-14 10:57] LABS: Creatinine, mg/dL 42.38
[2024-11-14 11:31] LABS: Phosphorus 3.7 mg/dL (2.7-4.5)
[2024-11-14 12:07] LABS: Vitamin D 25-OH Total 70.4 ng/mL (>30)
[2024-11-14 13:16] LABS: Creatinine, 24Hr Urine 0.7 G/Day (1.0-2.0); Total Volume 24 Hour Urine 1650 mL
[2024-11-17 14:43] LABS: Calcium, 24 Hr Urine 96 mg/24 h; Calcium/Creatinine Ratio 138 mg/g creat (30-275); Creatinine 24Hr Urine 0.69 g/24 h (0.50-2.15)
== END 2024-11-14 08:10 | disposition home or self-care (01) ==
LOC: HO.10HDL 08:09
PROVIDERS: Visit Provider Internal Medicine Endocrinology, Diabetes & Metabolism
DX: M85.80 Other specified disorders of bone density and structure, unspecified site (principal)
CPT/HCPCS: 36415; 82306; 82340; 82570; 84100

== ENCOUNTER 2024-11-27 09:52 | Outpatient (AMB) | payer MEDICARE, MEDICAID, SELFPAY ==
--- NOTE | 2024-11-27 10:10 | MHC.OFFVIS ---
Vital Signs 11/27/24 10:15 Height 5 ft 3.31 in Weight 177 lb 14.609 oz BMI 31.2 BP 130/78 Blood Pressure Location Rt brachial Position Sitting Pulse 70 Pulse Source Pulse Oximeter Pulse Oximetry (%) 95 Oxygen Delivery Method Room Air Intake Visit Reasons: Osteoporosis Intake Note: Patient present today for Osteoporosis follow up. Generation Engineer Required: No Accompanied by: Daughter Allergies No Known Allergies [No Known Allergies*] Allergy (Verified 11/27/24 10:17) Medication List - Last Reconciled 11/27/24 by Angelo Andrew MD acetaminophen 650 mg PO Q6H PRN amlodipine 2.5 mg PO DAILY ascorbic acid (vitamin C) (Vitamin C) 1 g PO DAILY aspirin (Adult Low Dose Aspirin) 81 mg PO DAILY atorvastatin 80 mg PO BEDTIME calcium carbonate-vitamin D3 500 mg-5 mcg (200 unit) 1 tab PO DAILY etanercept (Enbrel SureClick) 50 mg subcut QWEEK furosemide 20 mg PO DAILY levothyroxine (Synthroid) 100 mcg PO DAILY magnesium 250 mg PO DAILY metformin 500 mg PO BID metoprolol tartrate 50 mg PO BID multivitamin 1 tab PO DAILY omeprazole 20 mg PO DAILY HPI Comments Details: 69 YO Female with PMHx rheumatoid arthritis is seen in consultation at the request of PCP for Osteoporosis. First diagnosed in just found out. . Never Received treatment in the past No history of pathologic fracture or ONJ. Has several servings of dietary calcium per day in the form of cheese, brocoli , cereal . Takes Calcium supplement 500 mg daily in divided doses. Takes 200 IU of Vitamin D daily. Takes PPI, -anticoagulant, -antiepileptic or +glucocorticoid medication rarely but was on it or yrs . Not Does weight bearing exercise Fracture history: No Height loss: Yes NATURAL RESOURCES ENGINEER history: Menarache at age 12- Menopause at age 52- irregular Has history of Kidney stones: Has ? family history of Osteoporosis mom, sisters but no hip fracture. UTD on dental cleanings and sees dentist every 6 months. No planned upcoming dental work or extractions. DXA dated 03/16/24 :FINDINGS: LEFT FEMUR, NECK: Current: BMD 1.145 g/cm2, Z-score 2.0, T-score 0.8, normal. Prior: BMD 0.923 g/cm2. Baseline: BMD 0.751 g/cm2. LEFT FEMUR, TOTAL: Current: BMD 0.838 g/cm2, Z-score -0.4, T-score -1.3, osteopenia, 14.2% increase from previous, 21.3% increase from baseline (<5% change is not significant). Prior: BMD 0.734 g/cm2. Baseline: BMD 0.691 g/cm2. AP SPINE L1-L2 (excluding L3 and L4): The data of L1-L4 has been changed to exclude the L3 and L4 vertebral bodies, because significant degenerative change at these levels may cause overestimation of lumbar spine density. Current: BMD 1.037 g/cm2, Z-score 0.0, T-score -1.1, osteopenia, 5.1% increase from previous, 11.9% increase from baseline (<5% change is not significant). Prior: BMD 0.987 g/cm2. Baseline: BMD 0.927 g/cm2. IDENTIFIED RISK FACTORS: Menopause, rheumatoid arthritis. HISTORY OF FRACTURE: None listed. MEDICATIONS: Calcium, vitamin D. MM/XR DEXA axial skeleton IMPRESSION: 1. DIAGNOSIS: Osteopenia based on the lowest T-score value of -1.3 in the total femur applying World Health Organization criteria. Labs: Secondary workup was negative The patient is a 69-year-old female presenting with osteopenia and hyperglycemia. Previous evaluations, including urine and blood tests, did not reveal additional concerns and confirmed no fractures since her last visit. The patient's bone density suggests osteopenia, not osteoporosis, indicating a low fracture risk at present. She reports an elevated blood sugar level of 400 mg/dL, prompting the cancellation of planned spinal fusion surgery. This highlights the need for glycemic control. Future bone density assessments are planned to monitor potential progression to osteoporosis. The patient reports an increased intake of milk and yogurt to address osteopenia and ensures adequate calcium and Vitamin D levels. Specific intake amounts are not discussed, but the patient confirms compliance with dietary recommendations. [facility] Medical History (Updated 11/05/24 @ 15:46 by Katelynn Garcia MD) Rheumatoid arthritis Osteopenia Scoliosis Long-term use of immunosuppressant medication Personal history of COVID-19 Hx of thyroid cancer Non-rheumatic mitral regurgitation Essential hypertension Atherosclerotic cardiovascular disease care home 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 Seropositive rheumatoid arthritis Coronary arteriosclerosis Surgical History (Updated 10/31/24 @ 10:49 by Milagros Neumann RN) Hx of thyroidectomy (~2019) Hx of total knee replacement (06/22/22) Hx of bilateral cataract extraction Hx of colonoscopy History of back surgery Status post coronary artery bypass graft Family History Mother HTN (hypertension) Social History (Updated 10/31/24 @ 10:59 by Milagros Neumann RN) Household Members: Spouse Housing: Apartment Are you a primary neonatal intensive care nurse to a significant other at home: No Do you presently have visiting nurse or other home services: No 75 years or older and lives alone: No Alcohol intake: current Alcohol intake frequency: holidays/special occasions only Alcohol type: wine Comment: bathroom only, aware of trip hazards Patient Tobacco Use Status: Former Tobacco user Tobacco use type: Cigarette Female Reproductive History Menstrual Age of Menarche: 12 Assessment & Plan Assessment & Plan (1) Osteopenia: Code(s): M85.80 - Other specified disorders of bone density and structure, unspecified site Category: Medical Plan: This is a 69-year-old female with a history of low bone mass. Secondary workup was negative Will ensure 1200 mg of calcium and 2000 IU of vitamin D3and continue calcium vitamin D3 supplementation. patient does not meet criteria for pharmacologic treatment. At this point, she returned to the care of her primary care provider who can measure a another bone density in 02/2026. If there is significant decline on the bone density into the osteoporotic range, patient returned back to endocrinology for discussion of treatment options 1. Osteopenia The patient's bone density confirms osteopenia with a low fracture risk. Continuation of calcium and Vitamin D supplementation is recommended, with follow-up bone density evaluation planned in one to two years depending on clinical indications by PCP . During the visit, we discussed the outcomes of her bone density testing, which confirm osteopenia rather than osteoporosis. I advised against initiating osteoporosis medications now, given the low fracture risk and the adequacy of current supplementation with calcium and Vitamin D. The patient understands the plan for periodic bone density evaluation to monitor any potential progression. - Continue taking calcium and Vitamin D supplements as advised. - Maintain a diet rich in calcium and Vitamin D, including milk and yogurt. - Monitor blood sugar levels regularly and follow dietary guidelines to manage glucose effectively. - Undergo scheduled bone density tests as recommended. - Contact medical support if there are any further issues with glucose control or unexpected symptoms. The patient had an opportunity to ask questions regarding treatment plan. The patient expressed understanding and agreement with the above treatment plan. Patient was informed and verbally consented to the use of an ambient scribe for clinic note documentation during this visit. Coding Level of Care Code Est Pt Level 3 (84008) Diagnoses Osteopenia M85.80
[2024-11-27 10:15] VITALS: BP 130/78; PULSE 70; O2SAT 95; BMI 31.2
--- OUTSIDE RECORDS SUMMARY | 2024-11-27 11:08 | XMS_ITS ---
Author Organization Aaron Rob MD Address [address] [place] [phone] Care Team Providers Care Manager Requirements Name Role Phone Aarno Rob Primary Care Provider [phone] Allergies No Known Allergies REASON FOR VISIT comp visit Medications Medication SIG (Take, Route, Frequency, Duration) Notes Start Date End Date Status Docusate Sodium 100 MG 1 capsule as need ed Orally Once a day Not-Taking Amoxicillin-Pot Clavulanate 875-125 MG 1 tablet Orally every 12 hrs for 7 days 08/25/2023 Not-Taking Omeprazole 20 MG Take 1 capsule by [facility] once daily for 90 Active Synthroid 100 [...] 10/11/2024 weight is down 6 pounds [facility] e 07-06-24 Encounters Encounter Location Date Provider Diagnosis Aaron Rob MD [address] [place] [address] [place] [phone] 10/11/2024 Aaron Rob Atrophy of vagina N9 [...] Up: 4 Months, Reason: Provider Name:Aaron deleon, 11/29/2024 10:30:00 AM, [address] [place] [address], [address], [place], [phone], Provider Name:Aaron deleon, 02/15/2025 10:15:00 AM, [address] [place] [address], [address], [place], [place], [phone], Provider Name:Aaron Atkinson ier, 04/16/2025 07:30:00 AM, [address], [address], [place], [place], [phone], Provider Name:Aaron Atkinson ier, 10/08/2025 07:45:00 AM, [address], [address], [place], [phone], Provider Name:Aaron Atkinson ier, 10/15/2025 09:30:00 AM, [address], [address], [place], [phone], Progress Notes * Selene BARRYDOB: [birth year] (69 yo F)Acc No.[id number]:10/11/2024 Patient:?Selene BARRY Provider:?Aaron Rob MD :1955???Age:69 Y???Sex:Female D ate:10/11/2024 Address:[address] [place] [id number] Subjective: * Chief Complaints: * ???Comp visit [...] Objective: * Vitals:?Ht: 63.5, Wt: 183, B CT:31.91, BP:152/78, Repeat BP:140/70, Wt-k.01. weight is down [...] Blood Small (1+) A Negative - ?Specific [place] - Urine 1.015 1.005-1.025 - ?Urine Protein [...] Casts Urine 0-2 0-2 - /LPF ???Lab:Comprehensive Turner. P vandana Fast (Order Date - 10/04/2024) [...] organomegaly , no masses palpable.?RECTAL EXAM:?done by copra sampler.?FEMALE GENITOURINARY:?done by copra sampler.?EXTREMITIES:?no clubbing, cyanosis, or edema.?NEUROLOGIC:?nonfocal, motor strength normal [...] MD Date:?0 10/11/2024 Generated for Julius pittman/Fito/Dionnaitting on:?11/27/2024 11:07 AM EDT History and Physical Notes * HPI [...] or edema BREASTS: RECTAL EXAM: done by copra sampler FEMALE GENITOURINARY: done by copra sampler ORAL CAVITY: mucosa moist
== END 2024-11-27 10:31 | disposition home or self-care (01) ==
LOC: HO.ENCR 09:53
PROVIDERS: PCP Internal Medicine; Visit Provider Internal Medicine Endocrinology, Diabetes & Metabolism
DX: M85.80 Other specified disorders of bone density and structure, unspecified site (principal)
CPT/HCPCS: 99213

== ENCOUNTER → 2024-11-27 09:52 | Outpatient (BNVA) | payer MEDICARE, MEDICAID, SELFPAY | PROVIDERS: PCP Internal Medicine; Visit Provider Internal Medicine Endocrinology, Diabetes & Metabolism | DX: M85.80 Other specified disorders of bone density and structure, unspecified site (principal) | CPT/HCPCS: 99212 ==

== ENCOUNTER 2024-12-03 10:54 | Emergency (ER) | payer MEDICARE, MEDICAID, SELFPAY ==
[2024-12-03 11:04] VITALS: BP 194/90; PULSE 89; RESP 18; TEMP 36.6; O2SAT 98; BMI 32.1
--- NOTE | 2024-12-03 11:06 | ED_ITS ---
HPI - General Adult General Chief complaint: Abdominal Pain Stated complaint: High Blood sugar, abd pain, dizzy Time Seen by Provider: 12/03/24 16:01 Source: patient Mode of arrival: ambulatory Limitations: no limitations History of Present Illness ED Provider: HPI narrative: Patient has PCP involved in her care regarding diabetic management, she is currently starting metformin that has been adjusted, and then had noted bright red blood in her stool, and stool mixed with blood, this really no abdominal pain no fevers or chills , intermittent nausea has not had no issues with p.o. intake. Related Data Home Medications ?Medication ?Instructions ?Recorded ?Confirmed omeprazole 20 mg capsule,delayed 20 mg PO DAILY 10/20/20 11/27/24 release aspirin 81 mg tablet,delayed 81 mg PO DAILY 11/10/22 11/27/24 release (Adult Low Dose Aspirin) acetaminophen 325 mg tablet 650 mg PO Q6H PRN Pain, Mild (Pain 11/02/23 11/27/24 Scale 1-3) atorvastatin 80 mg tablet 80 mg PO BEDTIME 11/02/23 11/27/24 levothyroxine 100 mcg tablet 100 mcg PO DAILY 05/04/24 11/27/24 (Synthroid) multivitamin 1 tab PO DAILY 07/30/24 11/27/24 ascorbic acid (vitamin C) 1,000 mg 1 g PO DAILY 10/31/24 11/27/24 tablet (Vitamin C) magnesium 250 mg tablet 250 mg PO DAILY 10/31/24 11/27/24 metformin 500 mg tablet 500 mg PO BID 11/27/24 11/27/24 Previous Rx's ?Medication ?Instructions ?Recorded calcium 500 mg (as 1 tab PO DAILY #30 tabs 11/02/23 carbonate)-vitamin D3 5 mcg (200 unit) tablet furosemide 20 mg tablet 20 mg PO DAILY #90 tabs 02/28/24 etanercept 50 mg/mL (1 mL) 50 mg subcut QWEEK #4 mL 07/17/24 subcutaneous pen injector (Enbrel SureClick) metoprolol tartrate 50 mg tablet 50 mg PO BID #180 tabs 07/25/24 amlodipine 2.5 mg tablet 2.5 mg PO DAILY #90 tabs 10/09/24 hydrocortisone acetate 25 mg 25 mg SC BID #12 ea 12/03/24 rectal suppository (Anusol-HC) psyllium husk 3.4 gram/5.4 gram 1 tbsp PO DAILY #660 grams 12/03/24 oral powder (Metamucil) Allergies Allergy/AdvReac Type Severity Reaction Status Date / Time No Known Allergies Allergy Verified 12/03/24 11:06 [No Known Allergies*] Review of Systems 2 Constitutional: Constitutional: Reports as per HPI ON LICENSE OF [facility] Past Medical History Medical History (Updated 12/03/24 @ 16:41 by Rayo Rocha DO) Rheumatoid arthritis Osteopenia Scoliosis Long-term use of immunosuppressant medication Personal history of COVID-19 Hx of thyroid cancer Non-rheumatic mitral regurgitation Essential hypertension 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 Coronary arteriosclerosis Surgical History Hx of thyroidectomy (~2018) Hx of total knee replacement (06/22/22) Hx of bilateral cataract extraction Hx of colonoscopy History of back surgery Status post coronary artery bypass graft Family History Family History Mother HTN (hypertension) Social History Social History Household Members: Spouse Housing: Apartment Are you a primary wound care center consultant to a significant other at home: No Do you presently have visiting nurse or other home services: No Alcohol intake: current Alcohol intake frequency: holidays/special occasions only Alcohol type: wine Comment: bathroom only, aware of trip hazards Patient Tobacco Use Status: Former Tobacco user Tobacco use type: Cigarette Advance Directives: No Advance Directives Information Provided: Yes Do you have a plan to hurt others: No Plan Physical Exam ED Vital Signs: Vital Signs - 24 hr 12/03/24 11:04 12/03/24 16:00 Temperature 98 F 97.6 F Pulse Rate 89 70 Respiratory Rate 18 16 Blood Pressure 194/90 H 154/74 H Pulse Oximetry 98 97 Oxygen Delivery Method Room Air Room Air BMI result Body Mass Index 32.1 Const Other: * Gen: ?Overall well-appearing patient * HEENT: PERRLA, EOMI, MMM, * Neck: Supple, no LAD * CV: RRR, no obvious murmurs appreciated * Resp: ?No wheezing rales rhonchi no stridor moving air well * Abd: ?Bowel sounds are present, no tenderness no rebound no rigidity * MSK: FROM, strength 5/5 all extremities * Skin: Warm, dry, intact, * Neuro: ?Alert and oriented x3, moving upper and lower extremities symmetrically, no obvious facial asymmetry noted Course Course Course Narrative: RME, this is a rapid medical exam performed by Calvin Sherman please refer to primary provider for complete H&P- 69 year old female presents for evaluation of abdominal pain and bloody stool for the last few days. She was recently started on Metformin by her PCP for diabetes. Plan for labs, she is quite well appearing Medical Decision Making Medical Decision Making MDM Narrative: So far as rectal bleeding H and H is stable, completely benign abdominal exam did not feel she needs further imaging such as CT to evaluate for diverticulitis, there is no reports of melena, not on blood thinners, H and H is stable do not think this is related to upper GI bleed, we spoke quite a bit regarding her diabetic management I reassured her that she has a PCP and now torpedo specialist involved in her care though figure out a good regimen for her, otherwise we will recommend Metamucil and rectal suppositories and follow up with the PCP as needed Differential Diagnosis Differential Diagnoses: The differential diagnosis associated with the presentation includes Diverticulitis, infectious colitis, ischemic colitis, external hemorrhoids, upper GI bleed Lab Data 12/03/24 12:04 12/03/24 12:04 Labs: Lab Results 12/03/24 Range/Units 12:04 WBC 6.3 (4.8-10.8) X10*3/uL RBC 5.09 (4.20-5.50) X10*6/uL Hgb 13.9 (12.0-16.0) g/dl Hct 41.7 (37.0-47.0) % MCV 81.9 (80.0-98.0) fL MCH 27.3 (27.0-33.0) pg MCHC 33.3 (31.0-35.0) g/dl RDW 13.0 (11.0-16.0) % Plt Count 260 (160-400) X10*3/uL MPV 10.3 (9.4-12.3) fL Immature Gran % (Auto) 0.3 (0.0-0.4) % Neut % (Auto) 54.4 (45-73) % Lymph % (Auto) 36.2 (20-40) % [place] % (Auto) 6.5 (2-11) % Eos % (Auto) 1.8 (0-4) % Baso % (Auto) 0.8 (0-2) % Lymph # (Auto) 2.3 (1.2-4.9) X10*3/uL [place] # (Auto) 0.4 (0.1-1.2) X10*3/uL Eos # (Auto) 0.1 (0.0-0.4) X10*3/uL Baso # (Auto) 0.1 (0.0-0.2) X10*3/uL Abs Immat Gran (auto) 0.02 (0.00-0.03) X10*3/uL Absolute Neuts (auto) 3.4 (2.0-8.3) x10*3/uL Absolute Nucleated RBC 0.000 (0.0-0.012) X10*3/uL Nucleated RBC % (auto) 0.0 (0.0-0.2) /100WBC Sodium 140 (135-145) mmol/L Potassium 3.3 D (3.3-5.1) mmol/L Chloride 108 (96-108) mmol/L Carbon Dioxide 23 (22-29) mmol/L Anion Gap 12 (12-20) BUN 11 (9-16) mg/dL Creatinine 0.56 (0.5-1.4) mg/dL Estim Creat Clear Calc 98.9 Estimated GFR > 60 Random Glucose 247 H (60-115) mg/dL Lactic Acid 1.2 (0.5-2.0) mmol/L Calcium 8.8 (8.4-10.2) mg/dL Total Bilirubin 0.8 (0.0-1.0) mg/dL AST 25 (5-31) U/L ALT 14 (0-31) U/L Alkaline Phosphatase 137 H (39-117) U/L Total Protein 7.3 (6.5-8.0) g/dL Albumin 4.2 (3.5-5.0) g/dL Lipase 59 (8-78) U/L Urine Color Yellow Urine Appearance Clear Urine pH 5.5 (5.0-9.0) Ur Specific [place] <= 1.005 (1.005-1.025) Urine Protein Negative (Neg-Trace) mg/dL Urine Glucose (UA) Negative (Negative) mg/dL Urine Ketones Negative (Negative) mg/dL Urine Blood Trace H (Negative) Urine Nitrite Negative (Negative) Ur Leukocyte Esterase Negative (Negative) Urine RBC 0-2 (0-2) /HPF Urine WBC 0-5 (0-5) /HPF Ur Squamous Epith Cells 0-2 (0-2) /HPF Urine Bacteria Trace (None Seen) Hyaline Casts 0-2 (0-2) /LPF Discharge Plan Discharge Clinical Impression: RB (rectal bleeding) Patient Disposition: Home, Self-Care Additional Instructions: As discussed as far as rectal bleeding, this is likely due to internal hemorrhoids, your hemoglobin and hematocrit does not show any abnormality, and reassuringly you are not on blood thinners, I am going to recommend Metamucil and rectal suppositories. If this continues to be an issue you may need colonoscopy, as far as elevated sugars we have discussed that as well give it some time, at some point you will find a regimen that works via. Any other issues or concerns come back to the ER. Prescriptions: New Metamucil 3.4 gram/5.4 gram powder 1 tbsp PO DAILY Qty: 660 0RF Rx Instructions: mix into at least 8 oz of water or juice before administering hydrocortisone acetate [Anusol-HC] 25 mg suppository 25 mg SC BID Qty: 12 0RF No Action furosemide 20 mg tablet 20 mg PO DAILY Qty: 90 3RF Enbrel SureClick 50 mg/mL (1 mL) pen injector 50 mg subcut QWEEK Qty: 4 4RF metoprolol tartrate 50 mg tablet 50 mg PO BID Qty: 180 3RF amlodipine 2.5 mg tablet 2.5 mg PO DAILY Qty: 90 3RF ascorbic acid (vitamin C) [Vitamin C] 1,000 mg Tablet 1 g PO DAILY magnesium 250 mg Tablet 250 mg PO DAILY omeprazole 20 mg capsule,delayed release(DR/EC) 20 mg PO DAILY aspirin [Adult Low Dose Aspirin] 81 mg tablet,delayed release (DR/EC) 81 mg PO DAILY acetaminophen 325 mg tablet 650 mg PO Q6H PRN (Reason: Pain, Mild (Pain Scale 1-3)) atorvastatin 80 mg tablet 80 mg PO BEDTIME calcium carbonate-vitamin D3 500 mg-5 mcg (200 unit) tablet 1 tab PO DAILY Qty: 30 0RF levothyroxine [Synthroid] 100 mcg tablet 100 mcg PO DAILY multivitamin Tablet 1 tab PO DAILY metformin 500 mg tablet 500 mg PO BID Print Language: French
[2024-12-03 12:16] LABS: Appearance Urine Clear; Color Urine Yellow; Glucose Urine UA Negative (Negative); Leukocyte Esterase Urine Negative (Negative); Nitrite Urine Negative (Negative); PH 5.5 (5.0-9.0); Specific Gravity - Urine <= 1.005 (1.005-1.025); UMIC TRIGGER UACC YES; Urine Blood Trace (Negative); Urine Ketones Negative (Negative); Urine Protein Negative (Neg-Trace)
[2024-12-03 12:21] LABS: Bacteria Urine Trace (None Seen); Hyaline Casts Urine 0-2 /LPF (0-2); RBC Urine 0-2 /HPF (0-2); Squamous Epithelial Cell Urine 0-2 /HPF (0-2); WBC Urine 0-5 /HPF (0-5)
[2024-12-03 12:26] LABS: MANUAL DIFF FLAG NO
[2024-12-03 12:27] LABS: Basophils Absolute Auto 0.1 X10*3/uL (0.0-0.2); Basophils Percent Auto 0.8 % (0-2); Eosinophils Absolute Auto 0.1 X10*3/uL (0.0-0.4); Eosinophils Percent Auto 1.8 % (0-4); Hematocrit 41.7 % (37.0-47.0); Hemoglobin 13.9 g/dl (12.0-16.0); Imm Gran Abs Auto 0.02 X10*3/uL (0.00-0.03); Imm Gran Pct Auto 0.3 % (0.0-0.4); Lymphocytes Absolute Auto 2.3 X10*3/uL (1.2-4.9); Lymphocytes Percent Auto 36.2 % (20-40); Mean Corpuscular HGB Conc 33.3 g/dl (31.0-35.0); Mean Corpuscular Hemoglobin 27.3 pg (27.0-33.0); Mean Corpuscular Volume 81.9 fL (80.0-98.0); Mean Platelet Volume 10.3 fL (9.4-12.3); Monocytes Absolute Auto 0.4 X10*3/uL (0.1-1.2); Monocytes Percent Auto 6.5 % (2-11); Neutrophils Absolute Auto 3.4 x10*3/uL (2.0-8.3); Neutrophils Percent Auto 54.4 % (45-73); Platelet Count 260 X10*3/uL (160-400); Red Blood Count 5.09 X10*6/uL (4.20-5.50); White Blood Count 6.3 X10*3/uL (4.8-10.8)
[2024-12-03 12:35] LABS: Lactic Acid 1.2 mmol/L (0.5-2.0)
[2024-12-03 12:43] LABS: Alanine Aminotransferase 14 U/L (0-31); Albumin Level 4.2 g/dL (3.5-5.0); Alkaline Phosphatase 137 U/L (39-117); Anion Gap 12 (12-20); Aspartate Amino Transferase 25 U/L (5-31); Bilirubin Total 0.8 mg/dL (0.0-1.0); Blood Urea Nitrogen 11 mg/dL (9-16); Calcium 8.8 mg/dL (8.4-10.2); Carbon Dioxide 23 mmol/L (22-29); Chloride 108 mmol/L (96-108); Creatinine Clr Calc Pharmacy 98.9; Estimated Glomerular Filt Rate > 60; Glucose Random 247 mg/dL (60-115); Lipase 59 U/L (8-78); Potassium 3.3 mmol/L (3.3-5.1); Sodium 140 mmol/L (135-145); Total Protein 7.3 g/dL (6.5-8.0)
[2024-12-03 16:00] VITALS: BP 154/74; PULSE 70; RESP 16; TEMP 36.4; O2SAT 97
[2024-12-03 16:53] VITALS: BP 154/74; PULSE 70; RESP 16; TEMP 36.4; O2SAT 97
--- OUTSIDE RECORDS SUMMARY | 2024-12-03 17:24 | XMS_ITS ---
Author Organization Aaron Rob MD Address [address] [place] [phone] Care Team Providers Care Nursing Informatics Analyst Name Role Phone Aaron Rob Primary Care Provider [phone] REASON FOR VISIT weakness decreased appetite Encounters Encounter Location Date Provider Diagnosis Aaron Rob MD [address] [place] [address] [address] [place] [phone] 12/03/2024 Aaron Rob Plan Of Treatment Next Appt Details Provider Name:Aaron deleon, 12/14/2024 10:30:00 AM, [address] [place] [address], [address], [phone], Provider Name:Aaron deleon, 02/15/2025 10:15:00 AM, [address] [place] [address], [address], [phone], Provider Name:Aaron Atkinson ier, 04/16/2025 07:30:00 AM, [address], [address], [place], [phone], Provider Name:Aaron Atkinson ier, 10/08/2025 07:45:00 AM, [address], [address], [place], [phone], Provider Name:Aaron Atkinson ier, 10/15/2025 09:30:00 AM, [address], [address], [place], [phone], Progress Notes * Selene BARRYDOB: [birth year] (69 yo F)Acc No.[id number]:12/03/2024 Patient:?SWAPNIL Selene :1955???Age:69 Y???Sex:Female Address:[address] [place] [phone] * true * Date:? Generated for Julius pittman/Fito/eTransmitting on:?12/03/2024 05:24 PM EDT
== END 2024-12-03 16:54 | disposition home or self-care (01) ==
PROVIDERS: Physician Assistant; Emergency Provider Emergency Medicine; PCP Internal Medicine
DX: K62.5 Hemorrhage of anus and rectum (principal); R10.2 Pelvic and perineal pain; R42 Dizziness and giddiness; Z87.891 Personal history of nicotine dependence; Z79.899 Other long term (current) drug therapy
CPT/HCPCS: 36415; 80053; 81001; 83605; 83690; 85025; 99283; 99284

== ENCOUNTER 2024-12-20 10:46 | Outpatient (AMB) | payer MEDICARE, MEDICAID, SELFPAY ==
--- OUTSIDE RECORDS SUMMARY | 2024-12-17 05:30 | XMS_ITS ---
Author Organization Aaron Rob MD Address [address] [place] [phone] Care Team Providers Care Engineer Station Mainline Name Role Phone Aaron Rob Primary Care Provider [phone] REASON FOR VISIT sick from Metformin Medications Medication SIG (Take, Route, Frequency, Duration) Notes Start Date End Date Status Januvia 50 MG 1 tab Orally daily for 30 days 12/17 Active Encounters Encounter Location Date Provider Diagnosis Aaron Rob MD 10 [facility] [address] [place] [phone] 12/17/2024 Aaron Rob Plan Of Treatment Medication Medication Name Sig Start Date Stop Date Notes Januvia 50 MG 1 tab Orally daily for 30 days 12/17/2024 Next Appt Details Provider Name:Aaron deleon, 01/14/2025 09:00:00 AM, [address] [place] [address], [address] [place] [address], [phone], Provider Name:Aaron Atkinson ier, 02/15/2025 10:15:00 AM, [address] [place] [address], [address], [place], [phone], Provider Name:Aaron Atkinson ier, 04/16/2025 07:30:00 AM, [address] [place] [address], [address], [place], [phone], Provider Name:Aaron Atkinson ier, 10/08/2025 07:45:00 AM, [address] [place] [address], Suite [facility], [place], [phone], Provider Name:Aaron Atkinson ier, 10/15/2025 09:30:00 AM, [address] [place] [address], Suite [facility], [place], [phone], Progress Notes * Selene BARRYDOB: [birth year] (69 yo F)Acc No.[id number]:12/17/2024 Patient: Nohemi Selene MARIE :1955 A ge:69 Y S ex:Female Address:[address] [place] [address] [facility] [place] [phone] * Refills Start Januvia Tablet, 50 MG, Orally, 30 Tablet, 1 tab, daily, 30 days, Refills=5 * true * Date: Generated for Julius ptitman/Fito/eTransmitting on: 0 12/20/2024 12:38 PM EDT
--- NOTE | 2024-12-20 11:39 | A.OFFVIS_ITS ---
Intake Intake Visit Reasons: T2DM Rail Flaw Detector Operator Required: No Accompanied by: Daughter Allergies No Known Allergies (No Known Allergies*) Allergy (Verified 12/03/24 11:06) [facility] Comprehensive Diabetes Asmnt General Diabetes type type 2 Age of onset 69 Do any yazidi or cultural beliefs play a role in diabetes care No Date of last diabetes education 12/20/24 Comorbidities reports hypertension and cardiovascular disease Medications Uses insulin pump No Past diabetes medications reports DPP-4 inhibitors Lifestyle Physical activity functional status independent ambulation Most Recent Diabetes Results: Creatinine, (0.5-1.4) 0.56 mg/dL 12/03/24 BUN, (9-16) 11 mg/dL 12/03/24 Sodium, (135-145) 140 mmol/L 12/03/24 Potassium, (3.3-5.1) 3.3 mmol/L Δ 12/03/24 Chloride, (96-108) 108 mmol/L 12/03/24 Carbon Dioxide, (22-29) 23 mmol/L 12/03/24 Calcium, (8.4-10.2) 8.8 mg/dL 12/03/24 AST, (5-31) 25 U/L 12/03/24 ALT, (0-31) 14 U/L 12/03/24 Total Protein, (6.5-8.0) 7.3 g/dL 12/03/24 Albumin, (3.5-5.0) 4.2 g/dL 12/03/24 [facility] Medical History (Updated 12/20/24 @ 11:56 by Peggy Mix RN) Rheumatoid arthritis Osteopenia Scoliosis Long-term use of immunosuppressant medication Personal history of COVID-19 Hx of thyroid cancer Non-rheumatic mitral regurgitation Essential hypertension Atherosclerotic cardiovascular disease skilled nursing 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 Seropositive rheumatoid arthritis Coronary arteriosclerosis Surgical History Hx of thyroidectomy (~2019) Hx of total knee replacement (06/22/22) Hx of bilateral cataract extraction Hx of colonoscopy History of back surgery Status post coronary artery bypass graft Family History Mother HTN (hypertension) Social History Household Members: Spouse Housing: Apartment Are you a primary director career to a significant other at home: No Do you presently have visiting nurse or other home services: No 75 years or older and lives alone: No Alcohol intake: current Alcohol intake frequency: holidays/special occasions only Alcohol type: wine Comment: bathroom only, aware of trip hazards Patient Tobacco Use Status: Former Tobacco user Tobacco use type: Cigarette Female Reproductive History Menstrual Age of Menarche: 12 Assessment & Plan Assessment & Plan (1) Diabetes: Code(s): E11.9 - Type 2 diabetes mellitus without complications Plan: Diabetes self-management education and support participation record Assessment/scale: 1= needs instructed? 2= needs review? 3= comprehend keep point? 4= demonstrates understanding/ competent? NC= Not Covered Topics Learning Objective: Initial visit Initial or post srvc Initial or post srvc Initial or post srvc Initial or post srvc Initial or post srvc Post srvc Comments Pre Edu-assessment/plan Outcome or reassess Outcome or reassess Outcome or reassess Outcome or reassess Outcome or reassess Outcome or reassess Diabetes pathophysiology 1 Healthy eating 1 Being active 1 Taking medication 1 Monitoring glucose 1 Acute complication 1 Chronic complicated 1 Lifestyle and healthy coping 1 Diabetes distress in support 1 ?Diabetes pathophysiology: ?Defined diabetes med identify own type of diabetes; list 3 options for treating diabetes Healthy eating: ?Described effect of type, amount and ?timing of food on blood glucose; list 3 methods for planning meal Being active: ?State effect of exercise on blood glucose level Taking medication: ?State effect of diabetes medications on diabetes; name diabetes medications taking, action and side effects Monitoring glucose: ?Identify recommended blood glucose targets and personal target Acute complication: ?List symptoms and treatment of hyper and hypoglycemia, DKA, sick day guidelines and guidelines for severe weather or situations of crisis and diabetes supply manage Chronic complication: ?To find the relationship of blood glucose levels to long- term complications of diabetes in screening and preventative measures Lifestyle and healthy coping: ?Described lifestyle and healthy coping strategies to rule out diabetes self-management Diabetes to stress and support: ?Recognize Diabetes to stress and be able to identified support options Learning objectives: The patient was provided with verbal and written education on the following t opics as outlined below. The patient met all learning objectives and was able to verbalize understanding and provide teach back of education topics discussed . The patient was provided with the opportunity to ask questions and all questions were answered. Patient Assessment Assess patient education level/literacy/barriers, patient diagnosed with type 2 diabetes approximately 1 month ago. A1c 7.6% 10/31/2024. Patient reports that she does her cooking, food shopping with her daughter. Lives with her and her daughter Patient questions/concerns, patient concerned about meal planning What is Diabetes? Pathophysiology How the body produces and uses insulin Identify type of DM Risk factors Signs of Diabetes Brief overview of Diabetes Management Monitoring blood sugar Following a meal plan Taking medication as needed Members of the care team (PCP, RN, MA, RD, CDE, hole digger) Blood glucose monitoring When/how often to test Target blood sugar ranges Patient reports she began testing glucose proximally 4 days ago, patient did not bring meter to today's visit Introduction to Nutrition Importance of healthy diet in managing DM Diet is personalized to individual preference Review patient?s regular diet/food preferences Who prepares meals/does food shopping/ Dining out?/ Barriers? How diet effects glucose Eating 3 balanced meals a day with small, healthy snacks between meals Review food groups Carbohydrates: What is a carbohydrate/Which food/food groups are considered carbohydrates Effect of carbohydrates on blood glucose Portion sizes Reading food labels Basic carb counting (if applicable per nursing assessment) Plate method Meal planning Recommendations: Follow plate method, consistent carbs and read nutritional labels. Smart Goal: Patient will identify foods with carbohydrates in current meal plan by next visit Educational Materials: The patient was provided with the following written educational materials: Planning Healthy Meals Handout Patient Response to instructions: Comprehension of Instructions: Fair Readiness to make changes: Contemplation How confident they feel about making changes: Positive Portions of this note were created using voice recognition software, please excuse any words or phrases that may have been misinterpreted. Patient Instructions: Include regular daily activity. ADA recommends 30 minutes of exercise 5 days a week. Weight loss talk to PCP or Kinesiology Internship before starting new plan. Test blood sugar as directed; Fasting and 2hpp largest meal. Watch trends in results. Utilize results and to assess how food, physical activity and medications affect blood sugar results. Bring glucometer or CGM to next visit. Be knowledgeable about diabetes medication, its action, side effects, efficacy, toxicity, prescribed dosage, appropriate timing and frequency of administration, effect of missed and delayed doses and instructions for storage, travel and safety. Problem solving techniques to monitor hypo/hyperglycemia episodes and treatments. Reduce risk reduction behaviors, smoking cessation, regular eye, foot and dental examinations. Coding Level of Care Code Est Pt Level 1 (08036) Diagnoses Diabetes E11.9
== END 2024-12-20 11:58 | disposition home or self-care (01) ==
LOC: HO.ENCR 10:47
PROVIDERS: PCP Internal Medicine; Visit Provider Registered Nurse Diabetes Educator
DX: E11.9 Type 2 diabetes mellitus without complications (principal)

== ENCOUNTER → 2024-12-20 10:46 | Outpatient (BNVA) | payer MEDICARE, MEDICAID, SELFPAY | PROVIDERS: PCP Internal Medicine; Visit Provider Registered Nurse Diabetes Educator | DX: E11.9 Type 2 diabetes mellitus without complications (principal) | CPT/HCPCS: 99211 ==

== ENCOUNTER 2025-01-17 05:43 | Day surgery (SDC) | payer MEDICARE, MEDICAID, SELFPAY ==
--- OUTSIDE RECORDS SUMMARY | 2024-12-17 05:30 | XMS_ITS ---
Author Organization Aaron Rob MD Address [address] [place] [phone] Care Team Providers Care Geospatial Information Scientist Name Role Phone Araon Rob Primary Care Provider [phone] REASON FOR VISIT sick from Metformin Medications Medication SIG (Take, Route, Frequency, Duration) Notes Start Date End Date Status Januvia 50 MG 1 tab Orally daily for 30 days 12/17 Active Encounters Encounter Location Date Provider Diagnosis Aaron Rob MD 10 [facility] [address] [place] [phone] 12/17/2024 Aaron Rob Plan Of Treatment Medication Medication Name Sig Start Date Stop Date Notes Januvia 50 MG 1 tab Orally daily for 30 days 12/17/2024 Next Appt Details Provider Name:Aaron deleon, 01/14/2025 09:00:00 AM, [address] [place] [address], [address] [place] [address], [phone], Provider Name:Aaron Atkinson ier, 02/15/2025 10:15:00 AM, [address] [place] [address], [address], [place], [phone], Provider Name:Aaron Atkinson ier, 04/16/2025 07:30:00 AM, [address] [place] [address], [address], [place], [phone], Provider Name:Aaron Atkinson ier, 10/08/2025 07:45:00 AM, [address] [place] [address], Suite [facility], [place], [phone], Provider Name:Aaron Atkinson ier, 10/15/2025 09:30:00 AM, [address] [place] [address], Suite [facility], [place], [phone], Progress Notes * Selene BARRYDOB: [birth year] (69 yo F)Acc No.[id number]:12/17/2024 Patient: Nohemi Selene MARIE :1955 A ge:69 Y S ex:Female Address:[address] [place] [address] [facility] [place] [phone] * Refills Start Januvia Tablet, 50 MG, Orally, 30 Tablet, 1 tab, daily, 30 days, Refills=5 * true * Date: Generated for Julius pittman/Fito/eTransmitting on: 0 01/01/2025 01:10 PM EDT
--- OUTSIDE RECORDS SUMMARY | 2025-01-01 13:10 | XMS_ITS | Patient Health Record ---
Author Organization [facility] Address [address] [place] [address] Care Team Providers Care Dairy Feed Sales Consultant Name Role Phone Aaron Rob MD Primary Care Provider Angelo Caceres Unavailable [phone] Reason For Referral No Information Medications Medication SIG (Take, Route, Frequency, Duration) Notes Start Date End Date Status predniSONE 1 MG 1 tablet with food o r milk Orally Once a day Active Acetaminophen 325 MG 3 capsule as needed Orally BID Active Metoprolol Tartrate 50 MG 1 tablet with food Orally Twice a day Active Atorvastatin Calcium 80 MG 1 tablet Oral ly Once a day Active Pantoprazole Sodium 40 MG 1 tablet Orall y Once a day Active Aspir-81 81 MG 1 tablet Orally Once a day Active Propylthiouracil 50 MG 1 tablet Orally t hree x a day Active Immunizations Vaccine Route Administration Date Status Comme nts Influenza Unknown 03/06/2018 Administered Social History Tobacco Use: Social History Observation Description Date Details (start date - stop date) Former Smoker NA - NA Tobacco Use/Smoking Question Answer Notes Patient is a former smoker How long has it been since you last smoked? > 10 years Alcohol Screen Question Answer Notes Did you have a drink contain ing alcohol in the past year? Yes How often did you have a dri nk containing alcohol in the past year? Monthly or less (1 point) How many drinks did you have on a typical day when you were drinking in the past year? 1 or 2 drinks (0 point) How often did you have 6 or more drinks on one occasion in the past year? Never (0 point) Points 1 Interpretation Negative Section Notes: Nonsmoker; no sig alcohol Problems Problem Type SNOMED Code ICD Code Onset Dates Problem Status W/U Status Risk Notes Problem 593219542 Encounter for screening for malignant neoplasm of colon (Z12.11) Active confirmed Problem 764719728 Gastroesophageal reflux disease without esophagitis (K21.9) Active confirmed Plan Of Treatment Future Test Test Name Order Date COLONOSCOPY 05/30/2018 Next Appt Details Provider Name:Angelo Lan , 04/09/2025 02:20:00 PM, [address] [facility], [address], [place], [phone], Insurance Providers Payer Name Payer Address Payer Phone Subscriber Number Group Number Insured Name Patient Relationship to Insured Coverage Start Date Coverage End Date MEDICARE OF [place] [address] [place] [address] [id number] BERT HOOD Self - patient is the insured MEDICAID OF [facility] [address] [place] [address] [id number] TRACEY Lindsay BERT Self - patient is the insured Medical (General) History Medical History History ICD Code Denies [place],DM,CVA,Lung disease,renal dise ase HTN CAD-with 3-V CABG as below--had CHF Rheumatoid arthritis Hyperthyroidism GERD--EGD in 03/2008--small HH, no esoph agitis, no Rubio'a Screening colonoscopy in 2007--hyperplastic polyp, sigmoid diverticulosis, small internal hemorrhoids Surgical History Surgery Date(Month/Year) 3-V CABG 04/11/2018 Back surgery
--- OUTSIDE RECORDS SUMMARY | 2025-01-01 13:10 | XMS_ITS | Encounter Summary ---
Author Organization [employer] Address [address] [facility] [address] [place] [address] Care Team Providers Care Industrial Rehabilitation Consultant Name Role Phone Unavailable Primary Care Provider Unavailabl e Encounter Details Date Type Department Care Team (Late st Contact Info) Description 03/01/2023 Abstract [facility] [address] [place] [address] Sunny Martin, DMD [address] [place] [address] Social History Tobacco Use Types Packs/Day Years [...]
[2025-01-10 12:38] VITALS: BMI 31.1
[2025-01-17] VITALS (8 sets, daily range): BP systolic 130–151; BP diastolic 68–78; PULSE 45–60; RESP 12–16; TEMP 36.1–36.6; O2SAT 94–100; BMI 29.6
--- NOTE | ~2025-01-17 | FL_ITS ---
EXAMINATION: FL GUIDANCE ONLY HISTORY: L5-S1 decompression left COMPARISON: Correlation is made with a CT of the lumbar spine dated 05/11/2024. TECHNIQUE: Fluoroscopy time: 0.1 minutes. Cumulative Dose: 7.48 mGy. DAP: 2.04 mGym2 Images: 1. FINDINGS: A single fluoroscopic spot film of the lumbar spine in the lateral projection demonstrates a probe directed toward the L5 vertebral body from a posterior approach. FL/FL guidance in OR IMPRESSION: Fluoroscopy during procedure. Please see procedure report for additional information. Electronically signed by: Angelo Haley MD 01/17/2025 09:02 AM EDT
[2025-01-17 06:50] LABS: Glucose, Whole Blood 147 mg/dL (60-115)
[2025-01-17] MEDS: Lactated Ringers 1,000 ML 100 ML IVCONT (06:53)
--- NOTE | 2025-01-17 06:57 | MHC.SHP ---
Pre-Procedural Eval Section A - 24 Hr Update-Section A only Date of Service: 01/17/25 Section B - Complete if H&P > 30 days Chief Complaint: Radiculopathy, lumbar region Allergies: Allergies Allergy/AdvReac Type Severity Reaction Status Date / Time No Known Allergies (No Known Allergy Verified 12/03/24 11:06 Allergies*) Review of Systems Sugical H&P ROS: Negative: Constitution, Cardiovascular, Respiratory, Neurological, Psychiatric, Hem-Onc, Allergic/Immunologic, Gastrointestinal, Genitourinary, Musculoskeletal, Integumentary, Endocrine and Eyes/Ears/Nose/Throat Exam Surgical H&P Exam: Not Evaluated: HEENT, Not Evaluated: Heart, Not Evaluated: Lungs, Not Evaluated: Extremities, Not Evaluated: Abdomen, Not Evaluated: Skin and Not Evaluated: Neurological Exam Comment: The patient is awake, alert, no acute distress. Proposed surgical incision site is clean, dry, with no signs of recent trauma. Plan Diagnosis/Plan: Unchanged I have reviewed the history and physical and performed a pertinent physical examination on my patient. No changes have occurred unless specified. Plan remains the same, left L5-S1 lumbar decompression. Time Spent With Patient Time: Total time managing care of this patient today __6__ minutes.
--- NOTE | 2025-01-17 07:25 | HO.ANESPROP2 ---
Documented by User: Annalise Marques NP 01/16/25 09:49 HPI - Anesthesia Eval Consult details Narrative: 69 YR old female for L5-S1 Decompression, Side: Left Medically cleared for surgery by PCP 11/2024 Newly diagnosed Type 2 DM: on metformin per last PCP note 11/29/24, ?Terri added late 11/2024, A1C 7.6% broth setter immunosuppression for RA Follows with [facility] for coronary disease, bypass surgery: last visit 06/2024 [facility] Active Problems Active Problems: All Active Problems (Updated 12/20/24 @ 11:56 by Peggy Mix, ALOK) Diabetes (Acute) Osteopenia (Acute) Lumbar spinal stenosis (Acute) Lumbar degenerative disc disease (Acute) Left lumbar radiculopathy (Acute) Pain of left heel (Acute) Lumbosacral spondylosis (Acute) Left knee pain (Acute) Degenerative spinal arthritis (Acute) Cystocele and rectocele with incomplete uterovaginal prolapse (Acute) Vaginal prolapse without uterine prolapse (Acute) Pelvic floor weakness (Acute) assisted use of drug (Acute) Osteoarthritis of right hip (Acute) Osteoarthritis of left hip (Acute) Status post total knee replacement, right (Acute) Osteoarthritis of right knee (Acute) History of lumbosacral spine surgery (Acute) Leg edema (Acute) Trochanteric bursitis, left hip (Acute) History of back surgery (Acute) Long-term use of immunosuppressant medication (Acute) Non-rheumatic mitral regurgitation (Acute) Status post coronary artery bypass graft (Acute) Essential hypertension (Acute) Atherosclerotic cardiovascular disease (Acute) Seropositive rheumatoid arthritis (Acute) Past Medical History Medical History (Updated 12/20/24 @ 11:56 by Peggy Mix RN) Rheumatoid arthritis Osteopenia Scoliosis Long-term use of immunosuppressant medication Personal history of COVID-19 Hx of thyroid cancer Non-rheumatic mitral regurgitation Essential hypertension Atherosclerotic cardiovascular disease assisted 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 Seropositive rheumatoid arthritis Coronary arteriosclerosis Family History Family History Mother HTN (hypertension) Family history of problems with anesthesia: No Surgical History Surgical History (Updated 01/17/25 @ 06:21 by Nereida Mata RN) Hx of thyroidectomy (~2018) Hx of total knee replacement (06/22/22) Hx of bilateral cataract extraction Hx of colonoscopy History of back surgery Status post coronary artery bypass graft History of Problems with Anesthesia: No Social History Social History (Updated 01/10/25 @ 12:23 by Milagros Neumann RN) Household Members: Spouse Housing: Apartment Are you a primary animal daycare provider to a significant other at home: No Do you presently have visiting nurse or other home services: No Alcohol intake: current Alcohol intake frequency: holidays/special occasions only Alcohol type: wine Comment: bathroom only, aware of trip hazards Patient Tobacco Use Status: Former Tobacco user Tobacco use type: Cigarette Use of substances other than those prescribed or required for medical reasons: No Have you been hit, kicked, punched, or otherwise hurt by someone within the past year? If so, by whom?: No Are you DNR?: No Advance Directives: No Advance Directives Information Provided: Yes Advance Directives on File: No Patient : No : No Poor oral hygiene: No Meds Allergies Allergy/AdvReac Type Severity Reaction Status Date / Time No Known Allergies (No Known Allergy Verified 12/03/24 11:06 Allergies*) Home Medications ?Medication ?Instructions ?Recorded ?Confirmed ?Last Taken ?Type omeprazole 20 mg capsule,delayed 20 mg PO DAILY 10/20/20 01/10/25 01/17/25 History release aspirin 81 mg tablet,delayed 81 mg PO DAILY 11/10/22 01/10/25 Unknown History release (Adult Low Dose Aspirin) acetaminophen 325 mg tablet 650 mg PO Q6H PRN Pain, Mild (Pain 11/02/23 01/10/25 Unknown History Scale 1-3) atorvastatin 80 mg tablet 80 mg PO BEDTIME 11/02/23 01/10/25 Unknown History levothyroxine 100 mcg tablet 100 mcg PO DAILY 05/04/24 01/10/25 Unknown History (Synthroid) multivitamin 1 tab PO DAILY 07/30/24 01/10/25 Unknown History magnesium 250 mg tablet 250 mg PO DAILY 10/31/24 01/10/25 Unknown History Januvia 01/17/25 01/14/25 History Exam Height,Weight and Vital Signs: Height 5 ft 3.3 in Weight 80.286 kg Narrative Narrative: EKG 06/2024 NSR, non-specific ST & T wave abnormality, rate 71 Echo 2022 Conclusions: - 1. Normal LV systolic function with impaired relaxation filling pattern which regional wall motion ordinary suggestive underlying coronary artery disease 2. Mildly dilated left atrium 3. Plas-[id number] mitral regurgitation 4. Normal RV systolic pressure 5. 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 Seropositive rheumatoid arthritis Coronary arteriosclerosis Family History Family History Mother HTN (hypertension) Family history of problems with anesthesia: No Surgical History Surgical History (Updated 01/17/25 @ 06:21 by Nereida Mata RN) Hx of thyroidectomy (~2018) Hx of total knee replacement (06/22/22) Hx of bilateral cataract extraction Hx of colonoscopy History of back surgery Status post coronary artery bypass graft History of Problems with Anesthesia: No Social History Social History (Updated 01/10/25 @ 12:23 by Milagros Neumann RN) Household Members: Spouse Housing: Apartment Are you a primary animal daycare provider to a significant other at home: No Do you presently have visiting nurse or other home services: No Alcohol intake: current Alcohol intake frequency: holidays/special occasions only Alcohol type: wine Comment: bathroom only, aware of trip hazards Patient Tobacco Use Status: Former Tobacco user Tobacco use type: Cigarette Use of substances other than those prescribed or required for medical reasons: No Have you been hit, kicked, punched, or otherwise hurt by someone within the past year? If so, by whom?: No Are you DNR?: No Advance Directives: No Advance Directives Information Provided: Yes Advance Directives on File: No Patient : No : No Poor oral hygiene: No Meds Allergies Allergy/AdvReac Type Severity Reaction Status Date / Time No Known Allergies (No Known Allergy Verified 12/03/24 11:06 Allergies*) Home Medications ?Medication ?Instructions ?Recorded ?Confirmed ?Last Taken ?Type omeprazole 20 mg capsule,delayed 20 mg PO DAILY 10/20/20 01/10/25 01/17/25 History release aspirin 81 mg tablet,delayed 81 mg PO DAILY 11/10/22 01/10/25 Unknown History release (Adult Low Dose Aspirin) acetaminophen 325 mg tablet 650 mg PO Q6H PRN Pain, Mild (Pain 11/02/23 01/10/25 Unknown History Scale 1-3) atorvastatin 80 mg tablet 80 mg PO BEDTIME 11/02/23 01/10/25 Unknown History levothyroxine 100 mcg tablet 100 mcg PO DAILY 05/04/24 01/10/25 Unknown History (Synthroid) multivitamin 1 tab PO DAILY 07/30/24 01/10/25 Unknown History magnesium 250 mg tablet 250 mg PO DAILY 10/31/24 01/10/25 Unknown History Januvia 01/17/25 01/14/25 History Exam Exam Date and Time: 01/17/25 0725 Height,Weight and Vital Signs: Height 5 ft 3.3 in Weight 80.286 kg Height 5 ft 3.3 in Weight 76.5 kg Vital Signs Temperature 97.9 F 01/17/25 06:38 Pulse Rate 50 01/17/25 06:38 Respiratory Rate 16 01/17/25 06:38 Blood Pressure 151/78 H 01/17/25 06:38 Pulse Oximetry 98 01/17/25 06:38 Oxygen Delivery Method Room Air 01/17/25 06:38 Temperature 97.9 F 01/17/25 06:38 Pulse Rate 45 L 01/17/25 06:53 Respiratory Rate 16 01/17/25 06:38 Blood Pressure 151/78 H 01/17/25 06:38 Pulse Oximetry 98 01/17/25 06:38 Oxygen Delivery Method Room Air 01/17/25 06:38 Airway Mallampati Class: II TM Dist: >3cm Neck ROM: Limited Loose/Missing/Broken Teeth: Yes (several missing molars) Heart: S1S2 Lungs: CTAB Assessment and Plan Assessment Anesthesia Assessment: Anesthesia Plan Discussed and Chart Reviewed Final Anesthetic Review Family History of Problems with Anesthesia: No History of Problems with Anesthesia: No NPO: Yes ASA Class: III Final Preanesthetic Review: No Changes in Pt Med Stat, Meds/Allgs Chart Reviewed, Consent Obtained/Reviewed and Anes Risks/Benef Reviewed Patient Risk: Intermediate Procedure Risk: Intermediate Anesthetic Plan Anesthetic Plan: GA and Agree w/ Assess. and Plan Disposition: Standard PACU
--- NOTE | 2025-01-17 08:43 | P.OP_ITS ---
Operative Note Operative Note Date of Service: 01/17/25 Narrative: Preoperative Diagnosis: Spinal stenosis/lateral recess stenosis/neural foraminal stenosis Operation: Left L5 Laminotomy, Partial facetectomy and foraminotomy with use of microscope Consent Informed Consent was obtained for this operation. I have explained the nature, purpose and benefits of the operation. I have discussed the risks and benefit of the operation including possible complications or adverse events with patient/family. Alternative(s) were discussed with the patient with their relative benefits and risks as well as the consequences of not accepting the operation were included in obtaining consent. Surgeon: LUIGI BROCK MD, PHD Procedure Assisted By: HIREN Rankin Description of Procedure 69-year-old female had a previous fused done the past with autograft along the posterolateral borders which produced excessive bone growth including from the medial facet compressing the nerve root. The patient was offered a decompression of the nervous structures. The procedure complications were explained. The patient was consented. The patient was brought to the operating room and endotracheally intubated. The patient was turned in prone position on the Erwin frame. Prep and drape was done followed by timeout. Physician assistant professor of life sciences provided access. A mid lumbar incision was made followed by release of the paravertebral muscle to expose the L5 and S1 lamina and facet joint. An intraoperative x-ray was obtained to confirm the correct level. Localizing the level was very difficult due to the previous fusion and removal of spinous processes. However comparing with a CT scan we are confident we are at the correct level. The microscope was brought in. I took over the procedure. The high-speed drill was used to do a L5 laminotom in the midline until dura became visible. Thena #2 Kerrison was used to further remove the lamina towards the left L5 foramen. With a nerve hook the medial wall of the L5 pedicle was palpated as well as the beginning of the L5 foramen. The facet joint was partially drilled down after which with a #2 Kerrison a foraminotomy was done. Finally a foraminotomy Kerrison was used to complete the foraminotomy. There was still resistance over the nerve root but I was not able to gain anymore space. The microscope was removed. Hemostasis was done. Incision was closed in 2 layers. Steri-Strips were used to approximate incision. An OpSite with Tegaderm was used to cover the incision. All sponge needle counts were correct. Patient was extubated and transported in stable is to recovery room. Anesthesia: General Estimated Blood Loss (ml): Minimal Duration of Surgery: Under 60 Minutes Postoperative Plan: Discharge to home
--- NOTE | 2025-01-17 08:47 | P.DS_ITS ---
DS: Providers Provider Date of Service: 01/17/25 Date of discharge: 01/17/25 Primary care physician: Aaron Rob MD DS: Summary Time Attestation Discharge Coordination Time (in mins): 12 Quality: Safe Use of Opioids Does Pt have an Active Cancer Diagnosis on the Problem List?: No Quality: Stroke Does the patient have a stroke diagnosis?: No Physical Exam Vital Signs: Vital Signs: Last Vital Signs Temp 97.9 F 01/17/25 06:38 Pulse 45 L 01/17/25 06:53 Resp 16 01/17/25 06:38 BP 151/78 H 01/17/25 06:38 Pulse Ox 98 01/17/25 06:38 O2 Del Method Room Air 01/17/25 06:38 BMI result Body Mass Index 29.6 DS: Data Data Completed and Pending Labs on day of discharge: Laboratory Results - last 24 hr 01/17/25 06:46 POC Glucose 147 H Discharge Plan Discharge Patient Disposition: Home, Self-Care Referrals: Aaron Rob MD [Primary Care Provider, Medical] - 1 Week Discharge Medications: New oxycodone 5 mg tablet 5 mg PO Q6H PRN (Reason: pain) Qty: 20 0RF Rx Instructions: Partial Fill upon patient request. Continued furosemide 20 mg tablet 20 mg PO DAILY Qty: 90 3RF metoprolol tartrate 50 mg tablet 50 mg PO BID Qty: 180 3RF amlodipine 2.5 mg tablet 2.5 mg PO DAILY Qty: 90 3RF Metamucil 3.4 gram/5.4 gram powder 1 tbsp PO DAILY Qty: 660 0RF Rx Instructions: mix into at least 8 oz of water or juice before administering hydrocortisone acetate [Anusol-HC] 25 mg suppository 25 mg VT BID Qty: 12 0RF Januvia magnesium 250 mg Tablet 250 mg PO DAILY omeprazole 20 mg capsule,delayed release(DR/EC) 20 mg PO DAILY acetaminophen 325 mg tablet 650 mg PO Q6H PRN (Reason: Pain, Mild (Pain Scale 1-3)) atorvastatin 80 mg tablet 80 mg PO BEDTIME calcium carbonate-vitamin D3 500 mg-5 mcg (200 unit) tablet 1 tab PO DAILY Qty: 30 0RF levothyroxine [Synthroid] 100 mcg tablet 100 mcg PO DAILY multivitamin Tablet 1 tab PO DAILY Held aspirin [Adult Low Dose Aspirin] 81 mg tablet,delayed release (DR/EC) 81 mg PO DAILY Hold Instructions: Resume on 01/22/25. Discharge Orders: Discharge Order (Routine); Ordered 01/17/25 Ordered By: Osmel Mckoy Diet: Advance to usual diet Activity on Discharge: As tolerated Activity Restrictions/Additional Instructions: After your spinal surgery we ask you to observe the following restrictions/guidelines: Activity: It is normal to feel some discomfort as you increase your activity, but that will improve with time. We ask you avoid heavy lifting or acitivities that cause pain. As a general rule, 8lbs is a safe limit for lifting right after surgery. Walk as much as you feel comfortable but not to exhaustion. You will feel extra tired the first few days after surgery. Stay well hydrated. It is OK to walk up and down stairs You may return to driving when you are off narcotics (such as vicodin, oxycodone, dilaudid, etc), and you are back to normal functional capacity. If you have any concerns please check with office before driving. Return to work is specific to each patient and each surgery, so please speak with your doctor/PA at first follow up. Please bring paperwork such as FMLA at that time if you need it filled out. Medications: We recommend you take 1,000mg Tylenol every 8 hours for the first few weeks after surgery, if you do not have any liver issues and can tolerate this medication. Do not exceed 4,000mg daily. We will give you a short supply of narcotics after surgery (usually one weeks worth). If you need more please call the office but do not use more than prescribed. You will need to give our office 48 hours notice if you need narcotics refilled and we do not fill narcotics on weekends or evenings. If you are on a narcotic, it is a good idea to take a stool softener such as colace or senna to avoid constipation If you take blood thinner such as aspirin, Plavix, Coumadin, Effient, Eliquis etc for conditions such as Afib, DVT, Pulmonary embolus, coronary disease, stent s etc please speak with your surgeon about specific details as to when you can resume these medications. You can resume NSAIDs on post op day 1 (eg: Motrin, Naproxen, etc). Follow up: Please call the office, , after surgery to arrange a 3 week follow up for wound check. Wound Care: You may remove your dressing on the first day after surgery. ?You may ?leave open to air. Please do not remove the steri strips underneath. they will fall off on their own in one week. IT IS NORMAL FOR THE WOUND TO OOZE OR BE BLOODY FOR A FEW DAYS AFTER SURGERY. ?IF THIS HAPPENS JUST PLACE NEW DRESSING OVER IT TO AVOID STAINING CLOTHES. You may shower on post op day # 1 We ask that you do not let the water soak the wound. If it does get wet, just towel dry lightly. Please do not scrub your incision or place any type of chemical/ointment on the wound. No tub baths, pools or jacuzzis for one month. If you have any leaking or redness from your wound, or fevers, please call the office. Print Language: Lithuanian
== END 2025-01-17 10:21 | disposition home or self-care (01) ==
PROVIDERS: PCP Internal Medicine; Visit Provider Neurological Surgery
PROC: (CPT 63047; principal; 2025-01-17 07:30)
DX: M48.062 Spinal stenosis, lumbar region with neurogenic claudication (principal); M54.16 Radiculopathy, lumbar region; I10 Essential (primary) hypertension; E11.9 Type 2 diabetes mellitus without complications; M05.9 Rheumatoid arthritis with rheumatoid factor, unspecified; Z79.84 Long term (current) use of oral hypoglycemic drugs; Z79.82 Long term (current) use of aspirin; Z79.620 Long term (current) use of immunosuppressive biologic; Z79.899 Other long term (current) drug therapy; Z98.1 Arthrodesis status; Z87.891 Personal history of nicotine dependence
CPT/HCPCS: 63047; 82947; J0131; J0690; J1100; J1885; J2003; J2250; J2371; J2405; J2704; J3010

== ENCOUNTER → 2025-01-17 05:43 | Outpatient (BNV) | payer MEDICARE, MEDICAID, SELFPAY | PROVIDERS: PCP Internal Medicine; Visit Provider Neurological Surgery | DX: M48.062 Spinal stenosis, lumbar region with neurogenic claudication (principal) | CPT/HCPCS: 63047; 99499 ==

== ENCOUNTER 2025-01-31 09:49 | Outpatient (AMB) | payer MEDICARE, MEDICAID, SELFPAY ==
--- OUTSIDE RECORDS SUMMARY | 2025-01-17 06:03 | XMS_ITS ---
Author Organization Aaron Rob MD Address [address] [place] [phone] Care Team Providers Care Wire Stitcher Operator Name Role Phone Aaron Rob Primary Care Provider REASON FOR VISIT discharge Encounters Encounter Location Date Provider Diagnosis Aaron Rob MD [address] [place] [address] [address] [place] [phone] 01/17/2025 Aaron Rob Plan Of Treatment Next Appt Details Provider Name:Aaron deleon, 04/16/2025 07:30:00 AM, [address] [place] [address], [address], [phone], Provider Name:Aaron deleon, 04/23/2025 10:15:00 AM, [address] [place] [address], [address], [phone], Provider Name:Aaron Atkinson ier, 10/08/2025 07:45:00 AM, [address], [address], [place], [phone], Provider Name:Aaron Atkinson ier, 10/15/2025 09:30:00 AM, [address], [address], [place], [place], [phone], Progress Notes * Selene BARRYDOB: [birth year] (69 yo F)Acc No.[id number]:01/17/2025 Patient: Nohemi MARIE Selene :1955 A ge:69 Y S ex:Female Address:[address] [place] [phone] * true * Date: Generated for Julius pittman/Fito/Dionnaitting on: 0 01/31/2025 10:18 AM EDT
--- NOTE | 2025-01-31 10:08 | A.OFFVIS_ITS ---
Intake Intake Visit Reasons: 60 min Vmware Consultant Required: No Accompanied by: Self / Same As Patient Allergies No Known Allergies (No Known Allergies*) Allergy (Verified 12/03/24 11:06) HPI Comprehensive Diabetes Asmnt Most Recent Diabetes Results: Hemoglobin A1c 5.4 % 12/10/19 Microalb/Creat Ratio, (<30) 37.6 ug/mg cr H 10/04/24 Cholesterol, (<200) 92 mg/dL 10/04/24 HDL Cholesterol, (>40) 31 mg/dL L 10/04/24 Triglycerides, (<150) 101 mg/dL 10/04/24 Creatinine, (0.5-1.4) 0.56 mg/dL 12/03/24 BUN, (9-16) 11 mg/dL 12/03/24 Sodium, (135-145) 140 mmol/L 12/03/24 Potassium, (3.3-5.1) 3.3 mmol/L Δ 12/03/24 Chloride, (96-108) 108 mmol/L 12/03/24 Carbon Dioxide, (22-29) 23 mmol/L 12/03/24 Calcium, (8.4-10.2) 8.8 mg/dL 12/03/24 AST, (5-31) 25 U/L 12/03/24 ALT, (0-31) 14 U/L 12/03/24 Total Protein, (6.5-8.0) 7.3 g/dL 12/03/24 Albumin, (3.5-5.0) 4.2 g/dL 12/03/24 [facility] Medical History (Updated 12/20/24 @ 11:56 by Peggy Mix RN) Rheumatoid arthritis Osteopenia Scoliosis Long-term use of immunosuppressant medication Personal history of COVID-19 Hx of thyroid cancer Non-rheumatic mitral regurgitation Essential hypertension Atherosclerotic cardiovascular disease residential 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 Seropositive rheumatoid arthritis Coronary arteriosclerosis Surgical History (Updated 01/17/25 @ 06:21 by Nereida Mata RN) Hx of thyroidectomy (~2019) Hx of total knee replacement (06/22/22) Hx of bilateral cataract extraction Hx of colonoscopy History of back surgery Status post coronary artery bypass graft Family History Mother HTN (hypertension) Social History (Updated 01/10/25 @ 12:23 by Milagros Neumann RN) Household Members: Spouse Housing: Apartment Are you a primary acute care assistant to a significant other at home: No Do you presently have visiting nurse or other home services: No 75 years or older and lives alone: No Alcohol intake: current Alcohol intake frequency: holidays/special occasions only Alcohol type: wine Comment: bathroom only, aware of trip hazards Patient Tobacco Use Status: Former Tobacco user Tobacco use type: Cigarette Female Reproductive History Menstrual Age of Menarche: 12 Assessment & Plan Assessment & Plan (1) Diabetes: Code(s): E11.9 - Type 2 diabetes mellitus without complications Plan: Patient reports blood sugars below: Date Breakfast/Fasting Pre-Lunch Pre-Supper Bedtime Notes 01/25 138 8/2 137 171 8/3 135 171 8/4 155 154 8/5 134 223 8/6 148 146 8/7 137 Assess patient education level/literacy/barriers Patient questions/concerns, patient reports she has adjusted carbohydrate portions at mealtimes. She is testing glucose 1-2 times daily. Denies symptoms of hypoglycemia The patient met all learning objectives and was able to verbalize understanding and provide teach back of education topics discussed . The patient was provided with the opportunity to ask questions and all questions were answered. Topics covered in today?s session included: Medications (If applicable) * Name of medication? * Dosing/administration instructions? * Mechanism of action? * Potential side effects? * Potential adverse reaction and appropriate treatment? * Review onset, peak, duration Assess for concerns re: insurance coverage, cost, barriers to compliance Insulin/Injectables (If applicable) * Storage/care of insulin?? * Injection sites? * Site rotation? * Onset, peak, duration * Drawing up insulin? * Injecting insulin/other injectables? * Sharps disposal Continuous blood glucose monitoring (if applicable) Hypoglycemia and Hyperglycemia * Signs and symptoms? * Causes?? * Treatment? * Preventing hypoglycemia? * When to seek medical attention Target Goals: * Blood glucose targets and how you feel when your blood glucose is in and out of your target ranges. * Monitoring and knowing your A1C. * What can make blood glucose go up and down and preventing high and low blood glucose. * Review of blood sugar targets in expected goal range and outside of expected goal range. * Problem solving and preventing hyper/hypoglycemia. * Sick day management of diabetes. * Using blood sugar results in decision making process in managing diabetes. ?Patient was receptive to information provided and participated in the discussion. Asked?appropriate questions and demonstrated good understanding of the topics discussed.? ? Educational Materials: The patient was provided with the following written educational materials: Target Goal handout Smart Goal Assessment:? Patient will identify foods in current meal plan that contain carbohydrates Pt met goal 100% New Smart Goal: Patient will test glucose at various times of the day, if after meals waiting at least 2 hours post meal Patient Response to instructions: Comprehension of Instructions: good Readiness to make changes:? Action How confident they feel about making changes: Positive Portions of this note were created using voice recognition software, please excuse any words or phrases that may have been misinterpreted. Coding Level of Care Code Est Pt Level 1 (72219) Diagnoses Diabetes E11.9
--- OUTSIDE RECORDS SUMMARY | 2025-01-31 10:19 | XMS_ITS | Encounter Summary ---
Author Organization [employer] Address [address] [place] [address] Care Team Providers Care Complaint Evaluation Officer Name Role Phone Unavailable Primary Care Provider Unavailabl e Encounter Details Date Type Department Care Team (Late st Contact Info) Description 03/01/2023 Abstract [facility] [address] [place] [address] Sunny Martin, DMD [address] [place] [address] Social History Tobacco Use Types Packs/Day Years [...]
--- OUTSIDE RECORDS SUMMARY | 2025-01-31 10:19 | XMS_ITS | Patient Health Record ---
Author Organization [facility] Address [address] [place] [address] Care Team Providers Care Window Framer Name Role Phone Aaron Rob MD Primary Care Provider Angelo Caceres Unavailable [phone] Reason For Referral No Information Medications Medication [...] Problem Status W/U Status Risk Notes Problem [id number] Encounter for screening for malignant neoplasm of colon (Z12.11) Active confirmed Problem [id number] Gastroesophageal reflux disease without esophagitis (K21.9) Active confirmed Plan Of Treatment Future Test Test Name Order Date COLONOSCOPY 05/30/2018 Next Appt Details Provider Name:Angelo Lan , 04/09/2025 02:20:00 PM, [address] [facility], [address], [place], [phone], Insurance Providers Payer Name Payer Address Payer Phone Subscriber Number Group Number Insured Name Patient Relationship to Insured Coverage Start Date Coverage End Date MEDICARE OF [place] [address] [place] [address] [phone] [id number] BERT HOOD Self - patient is the insured [place] [facility] [address] [place] [address] [id number] TRACEY Lindsay BERT Self - patient is the insured Medical (General) History Medical History History ICD Code Denies SD,DM,CVA,Lung disease,renal dise ase HTN CAD-with 3-V CABG as below--had CHF Rheumatoid arthritis Hyperthyroidism GERD--EGD in 03/2008--small HH, no esoph agitis, no Rubio'a Screening colonoscopy in 2007--hyperplastic polyp, sigmoid diverticulosis, small internal hemorrhoids Surgical History Surgery Date(Month/Year) 3-V CABG 04/11/2018 Back surgery
== END 2025-01-31 10:29 | disposition home or self-care (01) ==
LOC: HO.ENCR 09:50
PROVIDERS: PCP Internal Medicine; Visit Provider Registered Nurse Diabetes Educator
DX: E11.9 Type 2 diabetes mellitus without complications (principal)

== ENCOUNTER → 2025-01-31 09:49 | Outpatient (BNVA) | payer MEDICARE, MEDICAID, SELFPAY | PROVIDERS: PCP Internal Medicine; Visit Provider Registered Nurse Diabetes Educator | DX: E11.9 Type 2 diabetes mellitus without complications (principal) | CPT/HCPCS: 99211 ==

== ENCOUNTER 2025-02-07 09:27 | Outpatient (AMB) | payer MEDICARE, MEDICAID, SELFPAY ==
--- OUTSIDE RECORDS SUMMARY | 2025-01-17 06:03 | XMS_ITS ---
Author Organization Aaron Rob MD Address [address] [place] [phone] Care Team Providers Care Night Club Manager Name Role Phone Aaron oRb Primary Care Provider REASON FOR VISIT discharge Encounters Encounter Location Date Provider Diagnosis Aaron Rob MD [address] [place] [address] [address] [place] [phone] 01/17/2025 Araon Rob Plan Of Treatment Next Appt Details Provider Name:Aaron deleon, 04/16/2025 07:30:00 AM, [address] [place] [address], [address], [phone], Provider Name:Aaron deleon, 04/23/2025 10:15:00 AM, [address] [place] [address], [address], [phone], Provider Name:Aaron Atkinson ier, 10/08/2025 07:45:00 AM, [address], [address], [place], [phone], Provider Name:Aaron Atkinson ier, 10/15/2025 09:30:00 AM, [address], [address], [place], [place], [phone], Progress Notes * Selene BARRYDOB: [birth year] (69 yo F)Acc No.[id number]:01/17/2025 Patient: Nohemi MARIE Selene :1955 A ge:69 Y S ex:Female Address:[address] [place] [phone] * true * Date: Generated for Julius pittman/Fito/Dionnaitting on: 0 02/07/2025 10:09 AM EDT
--- NOTE | 2025-02-07 09:43 | HO.SPINEOV ---
Intake Visit Reasons: 1st post op Intake Note: Ms. Barry is here today for her 1st post-op visit. Route Sales Driver Required: No Allergies No Known Allergies (No Known Allergies*) Allergy (Verified 12/03/24 11:06) Assessment & Plan Assessment & Plan (1) Status post lumbar spine surgery for decompression of spinal cord: Code(s): Z98.890 - Other specified postprocedural states Category: Medical Plan Operation: Left L5 Laminotomy, Partial facetectomy and foraminotomy Selene is a pleasant 69-year-old female that comes in today for her 1st postoperative visit after having a left-sided L5 laminotomy completed by Dr. Beltran a few weeks ago. Overall, she is very satisfied with her surgery, and states that she feels much better than she did preoperatively. Her severe leg pain has subsided, and she has only left with some low-grade cramping of the left lower extremity, and some right-sided hip discomfort. She states that she did have some right sided discomfort before surgery which may now be more evident as her severe leg pain is gone. She is ambulating well and completing ADLs without issue. She was accompanied by her daughter to this visit, they asked several questions regarding the postoperative healing course all of which I answered to the best of my ability. No new neurological deficits. The patient ambulates well and rises from a seated position without difficulty. Her posterior incision site is closed and well healing. I would like to follow up with Selene again in 6 weeks for his 2nd postoperative visit. Osmel Beltran MD,PhD [facility] Coding Level of Care Code Global (74930) Diagnoses Status post lumbar spine surgery for decompression of spinal cord Z98.890
--- OUTSIDE RECORDS SUMMARY | 2025-02-07 10:10 | XMS_ITS | Patient Health Record ---
Author Organization [facility] Address [address] [place] [address] Care Team Providers Care Envelope Machine Operator Name Role Phone Aaron Rob MD Primary Care Provider Angelo Caceres Unavailable [phone] Reason For Referral No Information Medications Medication [...] Problem Status W/U Status Risk Notes Problem [id number] Encounter for screening for malignant neoplasm of colon (Z12.11) Active confirmed Problem [id number] Gastroesophageal reflux disease without esophagitis (K21.9) Active confirmed Plan Of Treatment Future Test Test Name Order Date COLONOSCOPY 05/30/2018 Next Appt Details Provider Name:Angelo Lan , 04/09/2025 02:20:00 PM, [address], [address], [place], [address], Insurance Providers Payer Name Payer Address Payer Phone Subscriber Number Group Number Insured Name Patient Relationship to Insured Coverage Start Date Coverage End Date MEDICARE OF [place] [address] [place] [address] [phone] [id number] BERT HOOD Self - patient is the insured MEDICAID OF [facility] [address] [place] [phone] [id number] TRACEY Lindsay BERT Self - patient is the insured Medical (General) History Medical History History ICD Code Denies OR,DM,CVA,Lung disease,renal dise ase HTN CAD-with 3-V CABG as below--had CHF Rheumatoid arthritis Hyperthyroidism GERD--EGD in 03/2008--small HH, no esoph agitis, no Rubio'a Screening colonoscopy in 2007--hyperplastic polyp, sigmoid diverticulosis, small internal hemorrhoids Surgical History Surgery Date(Month/Year) 3-V CABG 04/11/2018 Back surgery
--- OUTSIDE RECORDS SUMMARY | 2025-02-07 10:10 | XMS_ITS | Encounter Summary ---
Author Organization [employer] Address [address] [place] [address] Care Team Providers Care Telecommunications Professional Name Role Phone Unavailable Primary Care Provider Unavailabl e Encounter Details Date Type Department Care Team (Late st Contact Info) Description 03/01/2023 Abstract [facility] [address] [place] [address] Sunny Martin, DMD [address] [place] [address] Social History Tobacco Use Types Packs/Day Years [...]
== END 2025-02-07 09:59 | disposition home or self-care (01) ==
LOC: HO.HNS 09:32
PROVIDERS: PCP Internal Medicine; Visit Provider Physician Assistant
DX: Z98.890 Other specified postprocedural states (principal)
CPT/HCPCS: 99024

== ENCOUNTER → 2025-02-07 09:27 | Outpatient (BNVA) | payer MEDICARE, MEDICAID, SELFPAY | PROVIDERS: PCP Internal Medicine; Visit Provider Physician Assistant | DX: M48.062 Spinal stenosis, lumbar region with neurogenic claudication (principal); Z98.890 Other specified postprocedural states | CPT/HCPCS: 99212 ==

== ENCOUNTER 2025-03-25 08:53 | Outpatient (AMB) | payer MEDICARE, SELFPAY ==
--- OUTSIDE RECORDS SUMMARY | 2024-12-14 06:57 | XMS_ITS ---
Author Organization Aaron Rob MD Address 10 [facility] [address] [place] [phone] Care Team Providers Care Lpta Name Role Phone Aaron Rob Primary Care Provider REASON FOR VISIT SURGERY CLERANCE NOTE Encounters Encounter Location Date Provider Diagnosis Aaron Rob MD [address] [place] [address] [place] [phone] 12/14/2024 Aaron Rob Plan Of Treatment Next Appt Details Provider Name:Aaron deleon, 04/16/2025 07:30:00 AM, [address] [place] [address], [address], [phone], Provider Name:Aaron deleon, 04/23/2025 10:15:00 AM, [address] [place] [address], [phone], Provider Name:Aaron Atkinson ier, 10/08/2025 07:45:00 AM, [address], [address], [place], [place], [phone], Provider Name:Aaron Atkinson ier, 10/15/2025 09:30:00 AM, [address], [address], [place], [place], [phone], Progress Notes * Selene BARRYDOB: [birth year] (69 yo F)Acc No.[id number]:12/14/2024 Patient: Nohemi FRANK Selene :1955 A ge:69 Y S ex:Female Address:[address] [place] [address] [facility] [place] [phone] * true * Date: Generated for Julius pittman/Fito/eTbeckiesmitting on: 0 03/25/2025 09:23 AM EDT
--- OUTSIDE RECORDS SUMMARY | 2024-12-17 05:30 | XMS_ITS ---
Author Organization Aaron Rob MD Address [address] [place] [phone] Care Team Providers Care Hydroelectric Plant Electrician Name Role Phone Aaron Rob Primary Care Provider REASON FOR VISIT sick from Metformin Medications Medication SIG (Take, Route, Frequency, Duration) Notes Start Date End Date Status Januvia 50 MG 1 tab Orally daily for 30 days 12/17 Active Encounters Encounter Location Date Provider Diagnosis Aaron Rob MD [address] [facility] [address] [place] [phone] 12/17/2024 Aaron Rob Plan Of Treatment Medication Medication Name Sig Start Date Stop Date Notes Januvia 50 MG 1 tab Orally daily for 30 days 12/17/2024 Next Appt Details Provider Name:Aaron deleon, 04/16/2025 07:30:00 AM, [address] [place] [address], [address], [phone], Provider Name:Aaron Atkinson ier, 04/23/2025 10:15:00 AM, [address] [place] [address], [address], [place], [phone], Provider Name:Aaron Atkinson ier, 10/08/2025 07:45:00 AM, [address] [place] [address], Suite [facility], [place], [phone], Provider Name:Aaron Atkinson ier, 10/15/2025 09:30:00 AM, [address] [place] [address], Suite [facility], [place], [phone], Progress Notes * Selene BARRYDOB: [birth year] (69 yo F)Acc No.[id number]:12/17/2024 Patient: Nohemi Selene MARIE :1955 A ge:69 Y S ex:Female Address:[address] [place] [address] [facility] [place] [phone] * Refills Start Januvia Tablet, 50 MG, Orally, 30 Tablet, 1 tab, daily, 30 days, Refills=5 * true * Date: Generated for Julius pittman/Fito/eTransmitting on: 0 03/25/2025 09:22 AM EDT
--- OUTSIDE RECORDS SUMMARY | 2025-01-14 05:00 | XMS_ITS ---
Author Organization Aaron Rob MD Address [address] [place] [phone] Care Team Providers Care Soakers Supervisor Name Role Phone Aaron Rob Primary [...] Omeprazole 20 MG Take 1 capsule by [facility] once daily for 90 Active [...] Date Provider Diagnosis Aaron Rob MD 10 [facility] [address] [place], [place] [phone] 01/14/2025 Aaron Rob Type 2 diabetes mellitus [...] Next Appt Details Provider Name:Aaron Atkinson ier, 04/16/2025 07:30:00 AM, [address], [address], [place], [place], [phone], Provider Name:Aaron Atkinson ier, 04/23/2025 10:15:00 AM, [address], [address], [place], [place], [phone], Provider Name:Aaron Atkinson ier, 10/08/2025 07:45:00 AM, [address], Suite [facility], [place], [place], [phone], Provider Name:Aaron Atkinson ier, 10/15/2025 09:30:00 AM, [address] [place] [address], Suite [facility], [place], [place], [phone], Progress Notes * BARRY SeleneDOB: [birth year] (69 yo F)Acc No.[id number]:01/14/2025 Progress Notes Patient: Gian EASTONmen Provider: Josh Rob MD :1955 A ge:69 Y S ex:Female Date:01/14/2025 Address:[address] [place] [phone] Subjective: * Chief Complaints: * 4 week [...] requent urination. R espiratory: Denies C ough. Art enradha S hortness of breath at rest. D enies S hortness of breath with exertion. G astrointestinal: Berenice Cordova iarrhea. D enies N ausea. * Medical [...] 0 01/14/2025 Generated for Julius pittman/Fito/Dionnaitting on: 0 03/25/2025 09:22 AM EDT History and Physical Notes * [...]
--- OUTSIDE RECORDS SUMMARY | 2025-01-17 06:03 | XMS_ITS ---
Author Organization Aaron Rob MD Address [address] [facility] [address] [place] [phone] Care Team Providers Care Ship Runner Name Role Phone Aaron Rob Primary Care Provider [phone] REASON FOR VISIT discharge Encounters Encounter Location Date Provider Diagnosis Aaron Rob MD [address] [place] [address] [place] [phone] 01/17/2025 Aaron Rob Plan Of Treatment Next Appt Details Provider Name:Aaron deleon, 04/16/2025 07:30:00 AM, [address] [place] [address], [address], [phone], Provider Name:Aaron deleon, 04/23/2025 10:15:00 AM, [address] [place] [address], [address], [phone], Provider Name:Aaron Atkinson ier, 10/08/2025 07:45:00 AM, [address], [place], [phone], Provider Name:Aaron Atkinson ier, 10/15/2025 09:30:00 AM, [address], [address], [place], [phone], Progress Notes * Selene BARRYDOB: [birth year] (69 yo F)Acc No.[id number]:01/17/2025 Patient: Nohemi HAYDENLAURA Selene :1955 A ge:69 Y S ex:Female Address:[address] [place] [phone] * true * Date: Generated for Julius pittman/Fito/Riosmitting on: 0 03/25/2025 09:22 AM EDT
--- OUTSIDE RECORDS SUMMARY | 2025-01-25 05:15 | XMS_ITS ---
Author Organization Aaron Rob MD Address [address] [place] [phone] Care Team Providers Care Cone Machine Feeder Name Role Phone Aaron Rob Primary Care Provider [phone] Results Component Value Reference Range Notes Glucose, [...] Omeprazole 20 MG Take 1 capsule by [facility] once daily for 90 Active Calcium [...] Date Provider Diagnosis Aaron Rob MD [address] [place], [place] [phone] 01/25/2025 Aaron Rob Type 2 diabetes mellitus [...] Provider Name:Aaron deleon, 04/16/2025 07:30:00 AM, [address], [address], [place], [place], [phone], Provider Name:Aaron Atkinson ier, 04/23/2025 10:15:00 AM, [address], [address], [place], [phone], Provider Name:Aaron Atkinson ier, 10/08/2025 07:45:00 AM, [address], [address], [place], [phone], Provider Name:Aaron Atkinson ier, 10/15/2025 09:30:00 AM, [address], [address], [place], [place], [phone], Progress Notes * Selene BARRYDOB: [birth year] (69 yo F)Acc No.[id number]:01/25/2025 Progress Notes Patient: Selene EASTON Provider: Josh Rob MD :1955 A ge:69 Y S ex:Female Date:01/25/2025 Address:[address] [place] [phone] Subjective: * Chief Complaints: * F /u [...] MD Date: 0 01/25/2025 Generated for Julius pittman/Fito/eTronelitting on: 0 03/25/2025 09:22 AM EDT History [...]
--- NOTE | 2025-03-25 09:02 | HO.SPINEOV ---
Intake Visit Reasons: 2nd post op Intake Note: Ms. Barry is here today for her 2nd post op. 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 Beltran on 01/17/25. To recap, during her last office visit she reported that her severe leg pain had subsided, and she was only left with some low-grade cramping of the left lower extremity, and some right-sided hip discomfort. Today, she continues to report meaningful improvements since surgery. She feels her left leg pain has continued to improve gradually. She does still have some baseline right hip discomfort, which she did have pre-operatively. She asked several questions regarding activity / restrictions which I answered to the best of my ability. She reports she just returned from a trip to [place] and is very happpy that she was able to engage in activities (such as going to the beach) without pain. No new neurological deficits. The patient ambulates well and rises from a seated position without difficulty. She uses no assistive devices to ambulate. There is no need for continued routine follow up with Selene, she may follow up in the future on an as needed basis. Osmel Beltran MD,PhD [facility] Coding Level of Care Code Global (15097) Diagnoses Status post lumbar spine surgery for decompression of spinal cord Z98.890
--- OUTSIDE RECORDS SUMMARY | 2025-03-25 09:23 | XMS_ITS | Patient Health Record ---
Author Organization Aaron Rob MD Address [address] [place] [address] [phone] Care Team Providers Care Affiliate Marketing Manager Name Role Phone Aaron Rob Primary Care Provider Allergies No Known Allergies Results Component Value Reference Range Notes Hemoglobin A1c Reviewed date:11/06/2024 02:24:19 PM Interpretation: Performing Lab: Notes/Report: Hemoglobin A1c 7.6 Liver Panel Reviewed date:06/04/2024 12:45:25 PM Interpretation: Performing Lab:[facility], [address] [place] [phone] Notes/Report: Bilirubin Total 0.9 0.0-1.0 mg/dL Bilirubin Direct 0.3 0.0-0.5 mg/dL Aspartate Amino Transferase 30 5-31 U/L Alanine Aminotransferase 16 0-31 U/L Total Protein 7.3 6.5-8.0 g/dL Albumin Level 4.0 3.5-5.0 g/dL Alkaline Phosphatase 122 39-117 U/L Glucose Fasting Reviewed date:06/04/2024 12:49:55 PM Interpretation: Performing Lab:[address] [address] Notes/Report: Glucose Fasting 109 60-99 mg/dL A fasting glucose from 100-125 mg/dl is considered impaired (pre-diabetes). Lipid Panel with Reflex Reviewed date:06/04/2024 12:45:35 PM Interpretation: Performing Lab:[address] [address] Notes/Report: Triglycerides 114 <150 mg/dL Desirable Triglyceride: [...] A1c Reviewed date:06/04/2024 12:44:41 PM Interpretation: Performing Lab:[address] [phone] Notes/Report: Hemoglobin A1c % 5.3 <6.0 % [...] average glucose, using the formula of the N4W-Jtaisbi Average Glucose study (ADAG), Diabetes Care, Vol.31,#8, Jan. 2007 Complete Blood Count Auto Di ff Reviewed date:10/04/2024 06:46:14 PM Interpretation: Performing Lab:[facility], [address] [place] [phone] Notes/Report: White Blood Count 6.5 4.8-10.8 X10*3/uL [...] NRBC Abs Auto 0.000 0.0-0.012 X10*3/uL Comprehensive [place]. Panel Fa st Reviewed date:10/05/2024 09:05:22 AM Interpretation: Performing Lab:[facility], [address] [place] [phone] Notes/Report: Sodium 144 135-145 mmol/L Potassium 3.9 [...] Panel Reviewed date:10/04/2024 06:22:42 PM Interpretation: Performing Lab:[facility], [address] [place] [phone] Notes/Report: Triglycerides 101 <150 mg/dL Desirable Triglyceride: [...] T4 Reviewed date:10/04/2024 06:24:59 PM Interpretation: Performing Lab:[facility], [address] [place] [phone] Notes/Report: TSH reflex Free T4 0.34 0.32-4.0 uIU/mL Microalbumin, Random Reviewed date:10/04/2024 06:28:23 PM Interpretation: Performing Lab:[facility], [address] [place] [phone] Notes/Report: Creatinine Urine 63.70 Microalbumin Urine 24.0 Microalbum/Creatinine Ratio Ur 37.6 <30 ug/mg cr Albumin/Creatinine Ratio Reference Ranges: Normal: < 30 ug/mg creatinine Microalbuminuria: 30 - 300 ug/mg creatinine Clinical Albuminuria: > 300 ug/mg creatinine Hemoglobin A1c Reviewed date:10/04/2024 06:25:17 PM Interpretation: Performing Lab:[address] [address] Notes/Report: Hemoglobin A1c % 5.8 <6.0 % [...] average glucose, using the formula of the G4U-Bazjaja Average Glucose study (ADAG), Diabetes Care, Vol.31,#8, Jan. 2007 UA ClnCatch+Micro w/rflx Cul t Reviewed date:10/05/2024 09:05:43 AM Interpretation: Performing Lab:[facility], [address] [place] [phone] Notes/Report: Urine, Clean Catch Color Urine Yellow Appearance Urine Clear PH 6.5 5.0-9.0 Glucose Urine UA Negative Negative mg/dL Urine Blood Small (1+) Negative Specific [place] - Urine 1.015 1.005-1.025 Urine Protein Negative Neg-Trace mg/dL Urine Ketones Negative Negative mg/dL Nitrite Urine Negative Negative Leukocyte Esterase Urine Trace Negative RBC Urine 11-20 0-2 /HPF WBC Urine 6-10 0-5 /HPF Squamous Epithelial Cell Urine 6-10 0-2 /HPF Bacteria Urine 3+ None Seen Hyaline Casts Urine 0-2 0-2 /LPF TSH reflex Free T4 Reviewed date:07/06/2024 05:11:26 PM Interpretation: Performing Lab:[facility], [address] [place] [address] Notes/Report: TSH reflex Free T4 0.16 0.32-4.0 uIU/mL Glucose, finger stick Reviewed date:11/06/2024 02:17:40 PM Interpretation: Performing Lab: Notes/Report: Value 404 Glucose, finger stick Reviewed date:11/13/2024 01:55:57 PM Interpretation: Performing Lab: Notes/Report: Value 298 Glucose, finger stick (Not y et reviewed by provider) Interpretation: Performing Lab: Notes/Report: Value 203 Glucose, finger stick Reviewed date:12/14/2024 10:20:30 AM Interpretation: Performing Lab: Notes/Report: Value 189 Glucose, finger stick Reviewed date:01/14/2025 08:53:15 AM Interpretation: Performing Lab: Notes/Report: Value 142 Glucose, finger stick Reviewed date:01/25/2025 09:08:34 AM Interpretation: Performing Lab: Notes/Report: Value 124 MR thoracic spine wo con Reviewed date:04/04/2024 06:26:06 PM Interpretation: Performing Lab: Notes/Report: [address] [address] Magnetic Resonance Report Signed Patient: Selene Barry MR#: [id number] 3611 : 1955 Acct:[id number] Age/Sex: 68 / F ADM Date: 04/02/24 Loc: HO.MRI Attending Dr: Osmel MARADIAGA Ordering Physician: Osmel Mckoy Date of Service: 04/02/24 Procedure(s): MR thoracic spine wo con Accession Number(s): [id number] cc: Aaron Rob MD; Osmel Mckoy EXAMINATION: [...] OV> 04/03/24 1509 DD/ 1830 TD/TT: 04/02/24 1850 Cellar Pumper: [address] Resonance Report Signed Patient: Selene Barry MR#: [id number] 3611 : 1955 Acct:[id number] Age/Sex: 68 / F ADM Date: 04/02/24 Loc: HO.MRI Attending Dr: Osmel MARADIAGA Ordering Physician: Osmel Mckoy Date of Service: 04/02/24 Procedure(s): MR thoracic spine wo con Accession Number(s): [id number] cc: Aaron Rob MD; Osmel Mckoy EXAMINATION: [...] 04/03/24 1509 DD/ 1830 TD/TT: 04/02/24 1855 Cellar Pumper: Complete Blood Count Auto Di ff Reviewed date:05/03/2024 12:29:13 PM Interpretation: Performing Lab:[facility], [address] [place] [phone] Notes/Report: White Blood Count 6.5 4.8-10.8 X10*3/uL [...] te Reviewed date:05/03/2024 12:46:33 PM Interpretation: Performing Lab:[address] [address] Notes/Report: Erythrocyte Sedimentation Rate 5 0-20 MM/HR Patients with polycythemia and many hemoglobin abnormalities may have depressed sed rates whereas patients with anemia may have elevated sed rates. Comprehensive Met. Panel Reviewed date:05/03/2024 12:46:22 PM Interpretation: Performing Lab:[address] [address] Notes/Report: Sodium 141 135-145 mmol/L Potassium 4.5 3.3-5.1 mmol/L Slight Hemolysis.Interpret result with caution. Chloride 108 96-108 mmol/L Carbon Dioxide 21 22-29 mmol/L Anion Gap 17 12-20 Blood Urea Nitrogen 15 9-16 mg/dL Creatinine 0.60 0.5-1.4 mg/dL Estimated Glomerular Filt Rate > 60 NOTE: For -Georgian individuals, multiply the result by 1.210. Chronic [...] Protein Reviewed date:05/03/2024 12:28:49 PM Interpretation: Performing Lab:[facility], [address] [place] [phone] Notes/Report: C Reactive Protein 0.61 < or = 0.50 mg/dL Hepatitis A,B,C Profile Reviewed date:05/03/2024 12:28:29 PM Interpretation: Performing Lab:[facility], [address] [place] [phone] Notes/Report: Hepatitis A Antibody IgM Nonreactive Nonreactive [...] TB Reviewed date:05/06/2024 12:59:20 PM Interpretation: Performing Lab:[facility], [address] [place] [phone] Notes/Report: TSpotTB Negative Negative A negative test [...] Passed For additional information, please refer to http://education.[employer]/fa q/VGO987 (This link is being provided for informational/ educational purposes only.) THIS TEST WAS PERFORMED AT: [facility] RACHELL OLIVAREZ MD,PHD CT lumbar spine wo con Reviewed date:07/23/2024 05:20:34 PM Interpretation: Performing Lab: Notes/Report: [address] [address] [address] Scan Report Signed Patient: Selene Barry MR#: [id number] 3611 : 1955 Acct:[id number] Age/Sex: 69 / F ADM Date: 05/11/24 Loc: HO.CT Attending Dr: Osmel MARADIAGA Ordering Physician: Osmel Mckoy Date of Service: 05/11/24 Procedure(s): CT lumbar spine wo IV con Accession Number(s): [id number] cc: Aaron oRb MD; Osmel Mckoy Report Number: [id number]: Total DLP = 681.00 mGy-cm EXAMINATION: CT [...] 07/23/24 0441 DD/ 1318 TD/TT: 05/11/24 1345 Cellar Pumper: [place] [address] [address] Scan Report Signed Patient: Selene Barry MR#: [id number] 3611 : 1955 Acct:[id number] Age/Sex: 69 / F ADM Date: 05/11/24 Loc: HO.CT Attending Dr: Osmel MARADIAGA Ordering Physician: Osmel Mckoy Date of Service: 05/11/24 Procedure(s): CT lum bar spine wo IV con Accession Number(s): [id number] cc: Aaron Rob MD; Osmel Mckoy Report Number: [id number]: Total DLP = 681.00 mGy-cm EXAMINATION: CT [...] 07/23/24 0441 DD/ 1318 TD/TT: 05/11/24 1345 Cellar Pumper: KYAW Monsivais Reviewed date:06/04/2024 12:48:56 PM Interpretation: Performing Lab:[facility], [address] [place] [phone] Notes/Report: Afshan Monsivais See Note Specimen held untested for 24 hours; Call to request Chemistry testing. XR chest 2V Reviewed date:07/06/2024 12:50:13 PM Interpretation:BRINDA 07/06/24 Performing Lab: Notes/Report: [address] [address] XRay Report Signed Patient: Selene Barry MR#: [id number] 3611 : 1955 Acct:[id number] Age/Sex: 69 / F ADM Date: 06/29/24 Loc: RICARDO.SUSAN Attending Dr: Aaron Rob MD Ordering Physician: Aaron Rob MD Date of Service: 06/29/24 Procedure(s): XR chest 2V Accession Number(s): [id number] cc: Aaron Rob MD CLINICAL HISTORY: Acute [...] in OV> 07/02/241054 DD/ 54 TD/TT: 07/02/241054 Cellar Pumper: [address] [address] XRay Report Signed Patient: Selene Barry MR#: [id number] 3611 : 1955 Acct:[id number] Age/Sex: 69 / F ADM Date: 06/29/24 Loc: HO.XRAY Attending Dr: Aaron Rob MD Ordering Physician: Aaron Rob MD Date of Service: 06/29/24 Procedure(s): XR tigist st 2V Accession Number(s): [id number] cc: Aaron Rob MD CLINICAL HISTORY: Ac [...] OV> 07/02/24 105 DD/ 54 TD/TT: 07/02/241054 Cellar Pumper: Free T4 (Free Thyroxine) Reviewed date:07/06/2024 05:11:14 PM Interpretation: Performing Lab:[facility], [address] [place] [phone] Notes/Report: Free T4 (Free Thyroxine) 1.31 0.71-1.85 ng/dL Afshan Monsivais Reviewed date:07/06/2024 01:24:48 PM Interpretation: Performing Lab:[facility], [address] [place] [phone] Notes/Report: Afshan Monsivais See Note Specimen held untested for 24 hours; Call to request Chemistry testing. Afshan Monsivais Reviewed date:10/04/2024 06:20:14 PM Interpretation: Performing Lab:[facility], [address] [place] [phone] Notes/Report: Hold Gold See Note Specimen held untested for 24 hours; Call to request Chemistry testing. Urine Culture Reviewed date:10/05/2024 09:02:59 AM Interpretation: Performing Lab:[facility], [address] [place] [phone] Notes/Report: Urine Culture No growth. XR chest 2V Reviewed date:10/19/2024 10:26:20 AM Interpretation: Performing Lab: Notes/Report: [address] [address] XRay Report Signed Patient: Selene Barry MR#: [id number] 3611 : 1955 Acct:[id number] Age/Sex: 69 / F ADM Date: 10/17/24 Loc: HOZULMA Attending Dr: Aaron Rob MD Ordering Physician: Aaron Rob MD Date of Service: 10/17/24 Procedure(s): XR chest 2V Accession Number(s): [id number] cc: Aaron Rob MD CLINICAL HISTORY: MILD [...] This document has been electronically signed by: oRmario Winters MD on 10/18/2024 21:55:08 Dictated By: Romario Winters MD Signed By: <Electronically signed by Romario Winters MD in OV> 10/18/242154 DD/ 54 TD/TT: 10/18/242154 Cellar Pumper: [address] [address] XRay Report Signed Patient: Selene Barry MR#: [id number] 3611 : 1955 Acct:[id number] Age/Sex: 69 / F ADM Date: 10/17/24 Loc: HO.RAMONAAY Attending Dr: Aaron Rob MD Ordering Physician: Aaron Rob MD Date of Service: 10/17/24 Procedure(s): XR tigist st 2V Accession Number(s): [id number] cc: Aaron Rob MD CLINICAL HISTORY: MN LD INTERMITTENT ASTHMA --- Additional Notes or [...] in OV> 10/18/242154 DD/ 54 TD/TT: 10/18/242154 Cellar Pumper: Complete Blood Count Auto Di ff Reviewed date:11/02/2024 12:26:56 PM Interpretation: Performing Lab:[facility], [address] [place] [phone] Notes/Report: White Blood Count 7.9 4.8-10.8 X10*3/uL [...] te Reviewed date:11/02/2024 05:05:39 PM Interpretation: Performing Lab:[facility], [address] [place] [phone] Notes/Report: Erythrocyte Sedimentation Rate 12 0-20 MM/HR Patients with polycythemia and many hemoglobin abnormalities may have depressed sed rates whereas patients with anemia may have elevated sed rates. Comprehensive Met. Panel Reviewed date:11/08/2024 08:01:35 AM Interpretation:CBACK 11/06 Performing Lab:[address] [address] Notes/Report: Sodium 134 135-145 mmol/L Potassium 4.3 [...] 3.5-5.0 g/dL Alkaline Phosphatase 156 39-117 U/L C Reactive Protein Reviewed date:11/02/2024 01:00:24 PM Interpretation: Performing Lab:[address] [address] Notes/Report: C Reactive Protein 1.94 < or = 0.50 mg/dL Glucose, Whole Blood Reviewed date:01/17/2025 12:33:33 PM Interpretation: Performing Lab:[facility], [address] [place] [phone] Notes/Report: Glucose, Whole Blood 147 60-115 mg/dL METER # : [id number] FL guidance in OR Reviewed date:01/17/2025 12:32:59 PM Interpretation: Performing Lab: Notes/Report: [address] [address] Fluoroscopy Report Signed Patient: Selene Barry MR#: [id number] 3611 : 1955 Acct:[id number] Age/Sex: 69 / F ADM Date: 01/17/25 Loc: HO.[facility] Attending Dr: Rodney Beltran MD, PhD Ordering Physician: Rodney Beltran MD, PhD Date of Service: 01/17/25 Procedure(s): FL guidance in OR Accession Number(s): [id number] cc: Aaron Rob MD; Rodney Beltran MD, PhD EXAMINATION: FL GUIDANCE ONLY HISTORY: L5-S1 decompression left COMPARISON: Correlation is made with a CT of the lumbar spine dated 05/11/2024. TECHNIQUE: Fluoroscopy time: 0.1 minutes. Cumulative Dose: 7.48 mGy. DAP: 2.04 mGym2 Images: 1. FINDINGS: A single fluoroscopic spot film of the lumbar spine in the lateral projection demonstrates a probe directed toward the L5 vertebral body from a posterior approach. FL/FL guidance in OR IMPRESSION: Fluoroscopy during procedure. Please see procedure report for additional information. Electronically signed by: Angelo Haley MD 01/17/2025 09:02 AM EDT RP Dictated By: Angelo Haley MD Signed By: <Electronically signed by Angelo Haley MD in OV> 01/17/25 0902 DD/ 0736 TD/TT: 01/17/25 0844 Cellar Pumper: [place] [address] Fluoroscopy Report Signed Patient: Selene Barry MR#: [id number] 3611 : 1955 Acct:[id number] Age/Sex: 69 / F ADM Date: 01/17/25 Loc: HO.[facility] Attending Dr: Jessica Beltran MD, PhD Ordering Physician: Rodney Beltran MD, PhD Date of Service: 01/17/25 Procedure(s): FL guidance in OR Accession Number(s): [id number] cc: Aaron Rob MD; Rodney Beltran MD, PhD EXAMINATION: FL GUID ANCE ONLY HISTORY: L5-S1 decompression left COMPARISON: Correlation is made with a CT of the lumbar spine dated 05/11/2024. TECHNIQUE: Fluoroscopy time: 0. 1 minutes. Cumulative Dose: 7.4 8 mGy. DAP: 2.04 mGym2 Images: 1. FINDINGS: A single fluoroscopi c spot film of the lumbar spine in the lateral projection demonstra paul a probe directed toward the L5 vertebral body from a posterior approach. F L/FL guidance in OR IMPRESSION: Fluoroscopy during procedure. Please see procedure report for additional information. Electronically kristine d by: Angelo Haley MD 01/17/2025 09:02 AM EDT RP Dictated By: Angelo Haley MD Signed By: <Electronically signed by Angelo Haley MD in OV> 01/17/25 0902 DD/ 0736 TD/TT: 01/17/25 0844 Cellar Pumper: Reason For Referral Reason osteoporosis Diagnosis 1 Age-related osteopor osis without current pathological fracture (M81.0) Referral Organization Aaron Rob MD Referring Provider First Name Aaron Referring Provider Last Name Darron Referring Provider Speciality Internal M edicine Referred Provider Angelo Ramires Referred Provider Specialty Endocrinolog y General Notes Ursula Tracy 0 07/26/2024 03:26:47 PM >info faxed with [facility] office note Referral Priority Routine Referral Appointment Date 07/30/2024 Reason DM Diagnosis 1 Type 2 diabetes santhosh itus treated without insulin (E11.9) Referral Organization Aaron Rob MD Referring Provider First Name Aaron Referring Provider Last Name Darron Referring Provider Speciality Internal edicine Referred Provider Marjan Burch Referred Provider Specialty Nutrition General Notes Ursula Tracy 0 11/26/2024 02:26:23 PM >info faxed Referral Priority Routine Referral Appointment Date 12/20/2024 Reason RECTAL BLEEDING Diagnosis 1 Rectal bleeding (K62 .5) Referral Organization Aaron Rob MD Referring Provider First Name Aaron Referring Provider Last Name Darron Referring Provider Speciality Internal edicine Referred Provider Angelo Mcgarry Referred Provider Specialty Gastroentero logy General Notes Valorie Christy 12/24/2024 10:44:16 AM >REFERRAL FAXED TO [facility] GARDUNO Patti A 01/25/2025 10:51:01 AM >APPT SCHEDULED FOR APRIL 09 AT 220 PM , PATIENT AWARE Referral Priority Routine Referral Appointment Date 04/09/2025 Medications Medication SIG (Take, Route, Frequency, Duration) Notes Start Date End Date Status Aspir-81 81 MG 1 tablet Orally Once a day Active Enbrel 50 MG/ML 1 mL Subcutaneous Not-Taking Magnesium 250 MG 1 capsule Orally Onc e a day Active Omeprazole 20 MG Take 1 capsule by mo [facility] once daily for 90 Active Calcium + D 315-200 MG-UNIT 1 tablet Orally 500/125 once a day Active Amoxicillin-Pot Clavulanate 875-125 MG 1 tablet Orally every 12 hrs for 7 days 08/25/2023 Not-Taking Estradiol 0.1 MG/GM as directed Vaginal Two times a Week 10/11/2023 Active Januvia 50 MG 1 tab Orally daily 12/17/2024 Active Atorvastatin Calcium 80 MG Take 1 tablet by mouth once daily Active Metoprolol Succinate ER 50 MG 1 tablet Orally twice a day Active Ventolin HFA 108 (90 Base) MCG/ACT INHALE 1 PUFF BY MOUTH EVERY 4 HOURS NEEDED Active Synthroid 100 MCG 1 tablet in the morn ing on an empty stomach Orally Once a day Active Docusate Sodium 100 MG 1 capsule as need ed Orally Once a day Not-Taking Albuterol Sulfate (2.5 MG/3ML) 0.083% 3 ml Inhalation Three times a day 06/15/2012 Active Lasix 20 MG 1 tablet Orally Once a day Active Immunizations Vaccine Route Administration [...] W/U Status Risk Notes Problem Hypercoagulable state (07852506) Secondary hypercoagulable state (289.82) Active confirmed Problem Spinal stenosis (78713465) Spinal stenosis (724.00) Active confirmed Problem 07026260 Age-related osteoporosis without current pathological fracture (M81.0) Active confirmed Problem 114490915 Thyroid nodule (E04.1) Active confirm ed Problem 49753185 Lymphocytosis (D72.820) Active confirmed Problem 562239635771662 FDC (curre nt) use of systemic steroids (Z79.52) Active confirmed Problem 98479119 Lumbar disc dise ase (M51.9) Active confirmed Problem 58646553 Essential hypert ension (I10) Active confirmed Problem 259261532 Mild intermitten t asthma without complication (J45.20) Active confirmed Problem 416478221 Chronic systolic congestive heart failure (I50.22) Active confirmed Problem 36903158 Hyperthyroidism (E05.90) Active confirmed Problem 473060984 Rheumatoid arthr itis involving multiple sites, 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) Active confirmed Problem 621283507 Graves disease (E05.00) Active confirmed Problem 458475411 History of coron marie artery bypass graft (Z95.1) Active confirmed Problem 2220398 Thyromegaly (E04.9) Active confirmed Problem 604368487 Non-rheumatic mi tral regurgitation (I34.0) Active confirmed Problem 103804547 Thyroid cancer (C73) Active confirmed Problem 260684189 Vaginal bleeding (N93.9) Active confirmed Problem 30126991 Sciatica of righ t side (M54.31) Active confirmed Problem 79593039 Hypercholesterol emia (E78.00) Active confirmed Problem 1722567933822 Coronary artery disease of [place] artery of [place] heart with stable angina pectoris (I25.118) Active confirmed Problem 320119264 Atrophy of vagin a (N95.2) Active confirmed Problem 313243068 Vaginal prolapse (N81.10) Active confirmed Problem Type II diabetes mellitus without complication (947431796) Type 2 diabetes mellitus treated without insulin (E11.9) Active confirmed Problem 7210154 Prediabetes (R73.09) Inactive confirmed Vital Signs Blood pressure diastolic 66 mm Hg 01/25/2025 Height 63.5 in 01/25/2025 Blood pressure systolic 122 mm Hg 01/25/2025 Weight 168 lbs 01/25/2025 BMI 29.29 kg/m2 01/25/2025 Encounters Encounter Location Date Provider Diagnosis Aaron Rob MD [address] [place] [id number] 06/04/2024 Aaron Rob Prediabetes R73.09 a nd Hypercholesterolemia E78.00 Aaron Rob MD [address] [place] [id number] 10/04/2024 Aaron Rob Essential hypertensi on I10 ; Prediabetes R73.09 ; Lymphocytosis D72.820 ; Chronic systolic congestive heart failure I50.22 ; Hyperthyroidism E05.90 and Hypercholesterolemia E78.00 Aaron Rob MD [address] [place] [id number] 04/16/2024 Aaron Rob Encounter for administration of vaccine Z23 Aaron Rob MD [address] [place] [address] [id number] 06/11/2024 Aaron Rob Vaginal prolapse N81 .10 ; Essential hypertension I10 and Rheumatoid arthritis involving multiple sites, unspecified rheumatoid factor presence M06.9 Aaron Rob MD [address] [place] [address] [id number] 06/21/2024 Aaron Rob Mild intermittent as thma without complication J45.20 Aaron Rob MD [address] [place] [address] [id number] 06/29/2024 Aaron Rob Acute URI J06.9 Aaron Rob MD [address] [place] [address] [id number] 07/06/2024 Aaron Rob Mild intermittent as thma without complication J45.20 ; Hyperthyroidism E05.90 and Pneumonitis, interstitial J84.89 Aaron Rob MD [address] [place] [address] [id number] 10/11/2024 Aaron Rob Atrophy of vagina N9 5.2 ; Vaginal prolapse N81.10 ; Hematuria R31.9 ; Essential hypertension I10 ; Prediabetes R73.09 ; Mild intermittent asthma without complication J45.20 ; Chronic systolic congestive heart failure I50.22 ; Graves disease E05.00 and Hypercholesterolemia E78.00 Aaron Rob MD [address] [place] [address] [id number] 11/06/2024 Aaron Rob Essential hypertensi on I10 ; Rheumatoid arthritis involving multiple sites, unspecified rheumatoid factor presence M06.9 and Type 2 diabetes mellitus treated without insulin E11.9 Aaron Rob MD [address] [place] [address] [id number] 11/13/2024 Aaron Rob Type 2 diabetes santhosh itus treated without insulin E11.9 Aaron Rob MD [address] [place] [address] [id number] 11/29/2024 Aaron Rob Type 2 diabetes santhosh itus treated without insulin E11.9 and Headache, unspecified R51.9 Aaron Rob MD [address] [place] [address] [id number] 12/14/2024 Aaron Rob Type 2 diabetes santhosh itus treated without insulin E11.9 and Rectal bleeding K62.5 Aaron Rob MD [address] [place] [address] [id number] 01/14/2025 Aaron Rob Type 2 diabetes santhosh itus treated without insulin E11.9 ; Lumbar disc disease M51.9 and Essential hypertension I10 Aaron Rob MD [address] [place] [address] [id number] 01/25/2025 Aaron Rob Type 2 diabetes santhosh itus treated without insulin E11.9 and Lumbar disc disease M51.9 Aaron Rob MD [address] [place] [address] [id number] 11/29/2024 Aaron Rob MD [address] [place] [address] [id number] 12/03/2024 Aaron Rob MD [address] [place] [address] [id number] 12/03/2024 Aaron Rob MD [address] [place] [address] [id number] 12/04/2024 Aaron Rob MD [address] [place] [address] [id number] 12/14/2024 Aaron Rob MD [address] [place] [address] [id number] 12/17/2024 Aaron Rob MD [address] [place] [address] [id number] 01/17/2025 Aaron Rob Assessments Encounter Date Diagnosis (ICD Code) Assessment Notes Treatment Notes Treatment Clinical Notes Section Notes 06/04/2024 Prediabetes (ICD-10 - R73.09) 06/04/2024 [...] J06.9) THE XRAY ORDER WAS FAXED TO [facility] PATIENT REG. PATIENT AWARE, [...] - N81.10) is going to have surgery 11/06/2024 Essential hypertensi on (ICD-10 - I10) 11/06/2024 Rheumatoid arthritis involving multiple sites, unspecified rheumatoid factor presence (ICD-10 - M06.9) 11/13/2024 Type 2 diabetes mellitus treated without insulin (ICD-10 - E11.9) consult hematology nurse educator, patient will continue current regiment 11/29/2024 Type 2 diabetes mellitus treated without insulin (ICD-10 - E11.9) at this point her sugars are low enough that she could proceed with her back surgry 11/29/2024 Headache, unspecifie d (ICD-10 - R51.9) does not appear to be temporal arteritis 12/14/2024 Type 2 diabetes mellitus treated without insulin (ICD-10 - E11.9) needs referral to dr ramires. not tolerating meds well 12/14/2024 Rectal bleeding (ICD -10 - K62.5) referral to dr mcgarry Total time spent on the date of the encounter is 35 minutes including both face to face time spent and time spent reviewing documentation, pertinent lab data, studies and counseling the patient. 01/14/2025 Type 2 diabetes mellitus treated without insulin (ICD-10 - E11.9) doing much better this week as is doing diet now 01/25/2025 Type 2 diabetes mellitus treated without insulin (ICD-10 - E11.9) stable, will continue current regiment 10/04/2024 Prediabetes (ICD-10 - R73.09) 06/11/2024 Essential hypertensi on (ICD-10 - I10) running a little highwill continue current regiment and will contiue to monitor 07/06/2024 Pneumonitis, interstitial (ICD-10 - J84.89) will contiue to monitor , pending future chest xray 10/11/2024 Hematuria (ICD-10 - R31.9) will continue to monitor 11/06/2024 Type 2 diabetes mellitus treated without insulin (ICD-10 - E11.9) will need to cancel her upcoming surgery until we get her \sugars under control, patient verbalized understanding of medication and directions for use 01/14/2025 Lumbar disc disease (ICD-10 - M51.9) going for surgery this week 01/25/2025 Lumbar disc disease (ICD-10 - M51.9) doing great. small opening in incision but does not appear infected 10/04/2024 Lymphocytosis (ICD-1 0 - D72.820) 06/11/2024 Rheumatoid arthritis involving multiple sites, unspecified rheumatoid factor presence (ICD-10 - M06.9) doing better on embrel, will continue current regiment 10/11/2024 Essential hypertensi on (ICD-10 - I10) stable, will continue curent regiment 01/14/2025 Essential hypertensi on (ICD-10 - I10) runing high today but didn't take her meds yet. will continue to monitor and continue current regiment 10/04/2024 Chronic systolic congestive [...] - E78.00) stable, will continue current regiment 12/14/2024 Other At the present Plan Of Treatment Pending Test Test Name Order Date Electrocardiogram (EKG) 06/07/2019 Glucose, finger stick 11/29/2024 XR CHEST 2 VIEW PA & LAT 05/23/2023 XR CHEST 2 VIEW PA & LAT 06/29/2024 BONE DENSITY DEXA 07/03/2021 Future Test Test Name Order Date XR CHEST 2 VIEW PA & LAT 08/03/2024 Next Appt Details Provider Name:Aaron deleon, 04/16/2025 07:30:00 AM, [address] [place] [address], [address], [phone], Provider Name:Aaron deleon, 04/23/2025 10:15:00 AM, [address] [place] [address], [address], [phone], Provider Name:Aaron deleon, 10/08/2025 07:45:00 AM, [address] [place] [address], [address], [phone], Provider Name:Aaron deleon, 10/15/2025 09:30:00 AM, [address] [facility], [address], [place], [place], [phone], Insurance Providers Payer Name Payer Address Payer Phone Subscriber Number Group Number Insured Name Patient Relationship to Insured Coverage Start Date Coverage End Date MEDICARE [employer] [address] [place] [address] [id number] Selene Valdovinos Self - patient is the insured [facility] [address] [place] [address] [id number] Selene Valdovinos Self - patient is the insured Medical (General) History Medical History History ICD Code colonoscopy - 03/2008 hyperp lastic polyp due 03/[address] Mcgarry; Colonoscopy done 07/14/[address] 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
--- OUTSIDE RECORDS SUMMARY | 2025-03-25 09:23 | XMS_ITS | Clinical Summary ---
Author Organization [employer] Address [address] [place] [address] [address] [place] [address] Care Team Providers Care Wool Buyer Name Role Phone Unavailable Primary Care Provider [...] - Risk 60-74 years 1-dose series) 2017 Dental Oral Exam 09/26/2024 03/27/2024, , 02/23/2013, Additional history exists Dental Prophylaxis 09/26/2024 03/27/2024, 0 03/01/2023, 01/29/2013, Additional history exists COVID-19 Vaccine ( - season) 2025 08/19/2022, 06/07/2021, 11/19/2020, Additional history exists Influenza Vaccine (#1) 2025 , 04/08/2022, 03/19/2021, Additional history exists Pneumococcal Vaccine: 50+ Years [...] patient's age to complete this topic Meningococcal B Vaccine Aged Out No l onger eligible based on patient's age to complete [...] Recently Relevant to Health Maintenance Insurance MEDICARE [facility] MEDICAID [facility] ADULT
--- OUTSIDE RECORDS SUMMARY | 2025-03-25 09:23 | XMS_ITS | Patient Health Record ---
Author Organization [facility] Address [address] [place] [address] Care Team Providers Care Business Project Analyst Name Role Phone Aaron Rob MD Primary Care Provider Angelo Caceres Unavailable [phone] Reason For Referral No Information Medications Medication [...] Problem Status W/U Status Risk Notes Problem [id number] Encounter for screening for malignant neoplasm of colon (Z12.11) Active confirmed Problem [id number] Gastroesophageal reflux disease without esophagitis (K21.9) Active confirmed Plan Of Treatment Future Test Test Name Order Date COLONOSCOPY 05/30/2018 Next Appt Details Provider Name:Angelo Lan , 04/09/2025 02:20:00 PM, [address] [facility], [address], [place], [address], Insurance Providers Payer Name Payer Address Payer Phone Subscriber Number Group Number Insured Name Patient Relationship to Insured Coverage Start Date Coverage End Date MEDICARE OF [place] [address] [place] [address] [id number] BERT HOOD Self - patient is the insured Medical (General) History Medical History History ICD Code Denies AK,DM,CVA,Lung disease,renal dise ase HTN CAD-with 3-V CABG as below--had CHF Rheumatoid arthritis Hyperthyroidism GERD--EGD in 03/2008--small HH, no esoph agitis, no Rubio'a Screening colonoscopy in 2007--hyperplastic polyp, sigmoid diverticulosis, small internal hemorrhoids Surgical History Surgery Date(Month/Year) 3-V CABG 04/11/2018 Back surgery
--- OUTSIDE RECORDS SUMMARY | 2025-03-25 09:23 | XMS_ITS | Encounter Summary ---
Author Organization [employer] Address [address] [facility] [address] [place] [address] Care Team Providers Care Warrant Server Name Role Phone Unavailable Primary Care Provider Unavailabl e Encounter Details Date Type Department Care Team (Late st Contact Info) Description 03/01/2023 Abstract [facility] [address] [place] [address] Sunny Martin, DMD [address] [place] [address] Social History Tobacco Use Types Packs/Day Years [...]
== END 2025-03-25 09:16 | disposition home or self-care (01) ==
LOC: HO.HNS 08:54
PROVIDERS: PCP Internal Medicine; Visit Provider Physician Assistant
DX: Z98.890 Other specified postprocedural states (principal)
CPT/HCPCS: 99024

== ENCOUNTER → 2025-03-25 08:53 | Outpatient (BNVA) | payer MEDICARE, SELFPAY | PROVIDERS: PCP Internal Medicine; Visit Provider Physician Assistant | DX: Z98.890 Other specified postprocedural states (principal) | CPT/HCPCS: 99212 ==

== ENCOUNTER 2025-03-26 13:18 | Outpatient (AMB) | payer MEDICARE, SELFPAY ==
--- OUTSIDE RECORDS SUMMARY | 2024-12-14 06:57 | XMS_ITS ---
Author Organization Aaron Rob MD Address 10 [facility] [address] [place] [phone] Care Team Providers Care Staff Toxicologist Name Role Phone Aaron Rob Primary Care Provider REASON FOR VISIT SURGERY CLERANCE NOTE Encounters Encounter Location Date Provider Diagnosis Aaron Rob MD [address] [place] [address] [place] [phone] 12/14/2024 Aaron Rob Plan Of Treatment Next Appt Details Provider Name:Aaron deleon, 04/16/2025 07:30:00 AM, [address] [place] [address], [address], [phone], Provider Name:Aaron deleon, 04/23/2025 10:15:00 AM, [address] [place] [address], [phone], Provider Name:Aaron Atkinson ier, 10/08/2025 07:45:00 AM, [address], [address], [place], [place], [phone], Provider Name:Aaron Atkinson ier, 10/15/2025 09:30:00 AM, [address], [address], [place], [place], [phone], Progress Notes * Selene BARRYDOB: [birth year] (69 yo F)Acc No.[id number]:12/14/2024 Patient: Nohemi FRANK Selene :1955 A ge:69 Y S ex:Female Address:[address] [place] [address] [facility] [place] [phone] * true * Date: Generated for Julius pittman/Fito/Riosmitting on: 0 03/26/2025 02:35 PM EDT
--- OUTSIDE RECORDS SUMMARY | 2024-12-17 05:30 | XMS_ITS ---
Author Organization Aaron Rob MD Address [address] [place] [phone] Care Team Providers Care Histologic Technician Name Role Phone Aaron Rob Primary Care Provider REASON FOR VISIT sick from Metformin Medications Medication SIG (Take, Route, Frequency, Duration) Notes Start Date End Date Status Januvia 50 MG 1 tab Orally daily for 30 days 12/17 Active Encounters Encounter Location Date Provider Diagnosis Aaron Rob MD 10 [facility] [address] [place] [phone] 12/17/2024 Aaron Rob Plan Of Treatment Medication Medication Name Sig Start Date Stop Date Notes Januvia 50 MG 1 tab Orally daily for 30 days 12/17/2024 Next Appt Details Provider Name:Aaron deleon, 04/16/2025 07:30:00 AM, [address] [place] [address], [address], [phone], Provider Name:Aaron Atkinson ier, 04/23/2025 10:15:00 AM, [address] [place] [address], [address], [place], [phone], Provider Name:Araon Atkinson ier, 10/08/2025 07:45:00 AM, [address] [place] [address], Suite [facility], [place], [phone], Provider Name:Aaron Atkinson ier, 10/15/2025 09:30:00 AM, [address] [place] [address], Suite [facility], [place], [phone], Progress Notes * Selene BARRYDOB: [birth year] (69 yo F)Acc No.[id number]:12/17/2024 Patient: Nhoemi Selene MARIE :1955 A ge:69 Y S ex:Female Address:[address] [place] [address] [facility] [place] [phone] * Refills Start Januvia Tablet, 50 MG, Orally, 30 Tablet, 1 tab, daily, 30 days, Refills=5 * true * Date: Generated for Julius pittman/Fito/eTransmitting on: 0 03/26/2025 02:35 PM EDT
--- OUTSIDE RECORDS SUMMARY | 2025-01-14 05:00 | XMS_ITS ---
Author Organization Aaron Rob MD Address [address] [place] [phone] Care Team Providers Care It Senior Analyst Name Role Phone Aaron Rob Primary Care Provider [phone] Allergies No Known Allergies Results Component [...] [facility] once daily for 90 Active Januvia [...] Diagnosis Aaron Rob MD 10 [facility] [address] [place], [place] [phone] 01/14/2025 Aaron Rob Type 2 diabetes mellitus [...] 07:30:00 AM, [address], [address], [place], [place], [phone], Provider Name:Aaron Atkinson ier, 04/23/2025 10:15:00 AM, [address], [address], [place], [place], [phone], Provider Name:Aaron Atkinson ier, 10/08/2025 07:45:00 AM, [address] [facility] [address], Suite [facility], [place], [place], [phone], Provider Name:Aaron Atkinson ier, 10/15/2025 09:30:00 AM, [address] [place] [address], Suite [facility], [place], [place], [phone], Progress Notes * BARRY SeleneDOB: [birth year] (69 yo F)Acc No.[id number]:01/14/2025 Progress Notes Patient: Gian EASTONmen Provider: Josh Rob MD :1955 A ge:69 Y S ex:Female Date:01/14/2025 Address:[address] [place] [phone] Subjective: * Chief Complaints: * 4 week [...] 01/14/2025 Generated for Julius pittman/Fito/Dionnaitting on: 0 03/26/2025 02:35 PM EDT History and Physical Notes * [...]
--- OUTSIDE RECORDS SUMMARY | 2025-01-17 06:03 | XMS_ITS ---
Author Organization Aaron Rob MD Address [address] [place] [phone] Care Team Providers Care Refractive Surgeon Name Role Phone Aaron Rob Primary Care Provider REASON FOR VISIT discharge Encounters Encounter Location Date Provider Diagnosis Aaron Rob MD [address] [place] [address] [place] [phone] 01/17/2025 Aaron Rob Plan Of Treatment Next Appt Details Provider Name:Aaron deleon, 04/16/2025 07:30:00 AM, [address] [place] [address], [address], [phone], Provider Name:Aaron deleon, 04/23/2025 10:15:00 AM, [address] [place] [address], [address], [phone], Provider Name:Aaron Atkinson ier, 10/08/2025 07:45:00 AM, [address], [place], [place], [phone], Provider Name:Aaron Atkinson ier, 10/15/2025 09:30:00 AM, [address], [address], [place], [phone], Progress Notes * Selene BARRYDOB: [birth year] (69 yo F)Acc No.[id number]:01/17/2025 Patient: Nohemi MARIE Selene :1955 A ge:69 Y S ex:Female Address:[address] [place] [phone] * true * Date: Generated for Julius pittman/Fito/Dionnaitting on: 0 03/26/2025 02:34 PM EDT
--- OUTSIDE RECORDS SUMMARY | 2025-01-25 05:15 | XMS_ITS ---
Author Organization Aaron Rob MD Address [address] [place] [phone] Care Team Providers Care Speech Scientist Name Role Phone Aaron Rob Primary Care [...] 20 MG Take 1 capsule by [facility] once daily for 90 Active Calcium + [...] Date Provider Diagnosis Aaron Rob MD [address] [place], [place] [phone] 01/25/2025 Aaron Rob Type 2 diabetes mellitus [...] 2 Months, Reason: dm Provider Name:Aaron deleon, 04/16/2025 07:30:00 AM, [address], [address], [place], [place], [phone], Provider Name:Aaron Atkinson ier, 04/23/2025 10:15:00 AM, [address], [address], [place], [phone], Provider Name:Aaron Atkinson ier, 10/08/2025 07:45:00 AM, [address], [address], [place], [phone], Provider Name:Aaron Atkinson ier, 10/15/2025 09:30:00 AM, [address], [address], [place], [place], [phone], Progress Notes * Selene BARRYDOB: [birth year] (69 yo F)Acc No.[id number]:01/25/2025 Progress Notes Patient: Selene EASTON Provider: Josh Rob MD :1955 A ge:69 Y S ex:Female Date:01/25/2025 Address:[address] [place] [phone] Subjective: * Chief Complaints: * F /u [...] true * Provider: Josh Rob MD Date: 01/25/2025 Generated for Julius pittman/Fito/eTronelitting on: 0 03/26/2025 02:35 PM EDT History [...]
--- NOTE | 2025-03-26 13:21 | MHC.OFFVIS ---
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 No complaints. 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 Seropositive rheumatoid arthritis Coronary arteriosclerosis Surgical History Hx of thyroidectomy (~2018) Hx of total knee replacement (06/22/22) Hx of bilateral cataract extraction Hx of colonoscopy History of back surgery Status post coronary artery bypass graft Family History Mother HTN (hypertension) Social History Household Members: Spouse Housing: Apartment Are you a primary care coordination manager to a significant other at home: No Do you presently have visiting nurse or other home services: No 75 years or older and lives alone: No Alcohol intake: current Alcohol intake frequency: holidays/special occasions only Alcohol type: wine Comment: bathroom only, aware of trip hazards Patient Tobacco Use Status: Former Tobacco user Tobacco use type: Cigarette Female Reproductive History Menstrual Age of Menarche: 12 Review of Systems Const All systems reviewed & are unremarkable except as noted in HPI and below Card Reports as per HPI Resp Reports as per HPI GI Reports as per HPI and Reports no additional complaints Reports as per HPI Physical Exam Vital Signs: Last Vital Signs BP 130/80 03/26/25 13:25 BMI result Body Mass Index 30.4 Const General: cooperative, healthy appearing and comfortable Chest Chest palpation & inspection: normal inspection of the chest and normal palpation of entire chest wall Breast/axilla inspection: normal inspection of the breasts and normal inspection of the axillae Breast/axilla palpation: normal palpation of the breasts, normal palpation of the axillae and no axillary lymphadenopathy Resp Effort & Inspection: normal respiratory effort Auscultation: clear to auscultation bilaterally Percussion: percussion normal Cardio Palpation: normal PMI Rate: regular rate Rhythm: regular rhythm Heart sounds: no murmurs and no rubs Peripheral pulses: Peripheral pulses 2+ throughout GI Inspection: Yes normal to inspection Palpation (GI): Soft to palpation, nontender, no guarding, not rigid and No hepatosplenomegaly present Percussion: Yes normal to percussion Auscultation: normal bowel sounds Rectal Exam - Female: deferred General: Yes bladder normal to palpation External Female Exam: No lesion Speculum Exam - Vagina: normal appearance of the vagina, normal palpation, normal vaginal discharge and not erythematous Speculum Exam - Cervix: normal appearance of the cervix and normal palpation Bimanual exam- vagina & uterus: normal bimanual exam, normal palpation, uterine size normal, bladder normal to palpation, consistency normal and normal palpation Bimanual Exam- Adnexa, other: normal adnexae, no masses and no tenderness Assessment & Plan Assessment & Plan (1) Well woman exam: Code(s): Z01.419 - Encounter for gynecological examination (general) (routine) without abnormal findings Category: Medical Plan: Co testing not indicated this year Counseled the patient about the recommended dietary allowance of 1200 mg of Calcium & 800 IU of vitamin D. Mammogram scheduled in few weeks. The patient was instructed to perform monthly self-breast exams and to schedule an annual exam in a year; All questions answered and the patient verbalized understanding. Coding Level of Care Code New Pt Prev Care >65yr (54253) Diagnoses Well woman exam Z01.419
[2025-03-26 13:25] VITALS: BP 130/80; BMI 30.4
--- OUTSIDE RECORDS SUMMARY | 2025-03-26 14:36 | XMS_ITS | Encounter Summary ---
Author Organization [employer] Address [address] [facility] [address] [place] [address] Care Team Providers Care Color Mixer Name Role Phone Unavailable Primary Care Provider Unavailabl e Encounter Details Date Type Department Care Team (Late st Contact Info) Description 03/01/2023 Abstract [facility] [address] [place] [address] Sunny Martin, DMD [address] [place] [address] Social History Tobacco Use Types Packs/Day Years [...]
--- OUTSIDE RECORDS SUMMARY | 2025-03-26 14:36 | XMS_ITS | Patient Health Record ---
Author Organization Aaron Rob MD Address [address] [place] [address] [phone] Care Team Providers Care Materials Specialist Name Role Phone Aaron Rob Primary Care Provider Allergies No Known Allergies Results Component Value Reference Range Notes Hemoglobin A1c Reviewed date:11/06/2024 02:24:19 PM Interpretation: Performing Lab: Notes/Report: Hemoglobin A1c 7.6 Liver Panel Reviewed date:06/04/2024 12:45:25 PM Interpretation: Performing Lab:[facility], [address] [place] [phone] Notes/Report: Bilirubin Total 0.9 0.0-1.0 mg/dL Bilirubin Direct 0.3 0.0-0.5 mg/dL Aspartate Amino Transferase 30 5-31 U/L Alanine Aminotransferase 16 0-31 U/L Total Protein 7.3 6.5-8.0 g/dL Albumin Level 4.0 3.5-5.0 g/dL Alkaline Phosphatase 122 39-117 U/L Glucose Fasting Reviewed date:06/04/2024 12:49:55 PM Interpretation: Performing Lab:[address] [address] Notes/Report: Glucose Fasting 109 60-99 mg/dL A fasting glucose from 100-125 mg/dl is considered impaired (pre-diabetes). Lipid Panel with Reflex Reviewed date:06/04/2024 12:45:35 PM Interpretation: Performing Lab:[address] [address] Notes/Report: Triglycerides 114 <150 mg/dL Desirable Triglyceride: [...] A1c Reviewed date:06/04/2024 12:44:41 PM Interpretation: Performing Lab:[address] [address] Notes/Report: Hemoglobin A1c % 5.3 <6.0 % [...] average glucose, using the formula of the A1E-Xqjtlrd Average Glucose study (ADAG), Diabetes Care, Vol.31,#8, Jan. 2007 Complete Blood Count Auto Di ff Reviewed date:10/04/2024 06:46:14 PM Interpretation: Performing Lab:[facility], [address] [place] [phone] Notes/Report: White Blood Count 6.5 4.8-10.8 X10*3/uL [...] NRBC Abs Auto 0.000 0.0-0.012 X10*3/uL Comprehensive [place]. Panel Fa st Reviewed date:10/05/2024 09:05:22 AM Interpretation: Performing Lab:[facility], [address] [place] [phone] Notes/Report: Sodium 144 135-145 mmol/L Potassium 3.9 [...] Panel Reviewed date:10/04/2024 06:22:42 PM Interpretation: Performing Lab:[facility], [address] [place] [phone] Notes/Report: Triglycerides 101 <150 mg/dL Desirable Triglyceride: [...] T4 Reviewed date:10/04/2024 06:24:59 PM Interpretation: Performing Lab:[facility], [address] [place] [phone] Notes/Report: TSH reflex Free T4 0.34 0.32-4.0 uIU/mL Microalbumin, Random Reviewed date:10/04/2024 06:28:23 PM Interpretation: Performing Lab:[facility], [address] [place] [phone] Notes/Report: Creatinine Urine 63.70 Microalbumin Urine 24.0 Microalbum/Creatinine Ratio Ur 37.6 <30 ug/mg cr Albumin/Creatinine Ratio Reference Ranges: Normal: < 30 ug/mg creatinine Microalbuminuria: 30 - 300 ug/mg creatinine Clinical Albuminuria: > 300 ug/mg creatinine Hemoglobin A1c Reviewed date:10/04/2024 06:25:17 PM Interpretation: Performing Lab:[address] [address] Notes/Report: Hemoglobin A1c % 5.8 <6.0 % [...] average glucose, using the formula of the Z1Y-Tjuucbs Average Glucose study (ADAG), Diabetes Care, Vol.31,#8, Jan. 2007 UA ClnCatch+Micro w/rflx Cul t Reviewed date:10/05/2024 09:05:43 AM Interpretation: Performing Lab:[facility], [address] [place] [phone] Notes/Report: Urine, Clean Catch Color Urine Yellow Appearance Urine Clear PH 6.5 5.0-9.0 Glucose Urine UA Negative Negative mg/dL Urine Blood Small (1+) Negative Specific [place] - Urine 1.015 1.005-1.025 Urine Protein Negative Neg-Trace mg/dL Urine Ketones Negative Negative mg/dL Nitrite Urine Negative Negative Leukocyte Esterase Urine Trace Negative RBC Urine 11-20 0-2 /HPF WBC Urine 6-10 0-5 /HPF Squamous Epithelial Cell Urine 6-10 0-2 /HPF Bacteria Urine 3+ None Seen Hyaline Casts Urine 0-2 0-2 /LPF TSH reflex Free T4 Reviewed date:07/06/2024 05:11:26 PM Interpretation: Performing Lab:[facility], [address] [place] [address] Notes/Report: TSH reflex Free T4 0.16 0.32-4.0 [...] date:04/04/2024 06:26:06 PM Interpretation: Performing Lab: Notes/Report: [address] [address] Magnetic Resonance Report Signed Patient: Selene Barry MR#: [id number] 3611 : 1955 Acct:[id number] Age/Sex: 68 / F ADM Date: 04/02/24 Loc: HO.MRI Attending Dr: Osmel MARADIAGA Ordering Physician: Osmel Mckoy Date of Service: 04/02/24 Procedure(s): MR thoracic spine wo con Accession Number(s): [id number] cc: Aaron Rob MD; Osmel Mckoy EXAMINATION: [...] OV> 04/03/24 1509 DD/ 1830 TD/TT: 04/02/24 1853 Cardiac Cath Technician: [address] Resonance Report Signed Patient: Selene Barry MR#: [id number] 3611 : 1955 Acct:[id number] Age/Sex: 68 / F ADM Date: 04/02/24 Loc: HO.MRI Attending Dr: Osmel MARADIAGA Ordering Physician: Osmel Mckoy Date of Service: 04/02/24 Procedure(s): MR thoracic spine wo con Accession Number(s): [id number] cc: Aaron Rob MD; Osmel Mckoy EXAMINATION: MR THORACIC SPINE WITHOUT CONTRAST CLINICAL INFORMATION: Other spondylosis wi th myelopathy, thoracic region COMPARISON: None available. TECHNIQUE: MRI of the thoracic spine was obtained using routine sequences without contrast. FINDINGS: Preservation of the normal thoracic kyphosis. No listhesis. Probable intraosseous hemangi reic involving the majority of T8. Otherwise, no [...] nerve roots. Electronically kristine d by: Eliane Gumzan MD 04/03/2024 03:09 PM EDT RP Dictated By: Eliane Guzman MD Signed By: <Electronically signed by Eliane Guzman MD in OV> 04/03/24 1509 DD/ 1830 TD/TT: 04/02/24 1855 Cardiac Cath Technician: Complete Blood Count Auto Di ff Reviewed date:05/03/2024 12:29:13 PM Interpretation: Performing Lab:[facility], [address] [place] [phone] Notes/Report: White Blood Count 6.5 4.8-10.8 X10*3/uL [...] te Reviewed date:05/03/2024 12:46:33 PM Interpretation: Performing Lab:[address] [address] Notes/Report: Erythrocyte Sedimentation Rate 5 0-20 MM/HR Patients with polycythemia and many hemoglobin abnormalities may have depressed sed rates whereas patients with anemia may have elevated sed rates. Comprehensive Met. Panel Reviewed date:05/03/2024 12:46:22 PM Interpretation: Performing Lab:[address] [address] Notes/Report: Sodium 141 135-145 mmol/L Potassium 4.5 3.3-5.1 mmol/L Slight Hemolysis.Interpret result with caution. Chloride 108 96-108 mmol/L Carbon Dioxide 21 22-29 mmol/L Anion Gap 17 12-20 Blood Urea Nitrogen 15 9-16 mg/dL Creatinine 0.60 0.5-1.4 mg/dL Estimated Glomerular Filt Rate > 60 NOTE: For -[place] Islander individuals, multiply the result by 1.210. Chronic [...] Protein Reviewed date:05/03/2024 12:28:49 PM Interpretation: Performing Lab:[facility], [address] [place] [phone] Notes/Report: C Reactive Protein 0.61 < or = 0.50 mg/dL Hepatitis A,B,C Profile Reviewed date:05/03/2024 12:28:29 PM Interpretation: Performing Lab:[facility], [address] [place] [phone] Notes/Report: Hepatitis A Antibody IgM Nonreactive Nonreactive [...] TB Reviewed date:05/06/2024 12:59:20 PM Interpretation: Performing Lab:[facility], [address] [place] [phone] Notes/Report: TSpotTB Negative Negative A negative test [...] Passed For additional information, please refer to http://education.[employer].CareCloud/fa q/FPC322 (This link is being provided for informational/ educational purposes only.) THIS TEST WAS PERFORMED AT: [email or web address] RACHELL OLIVAREZ MD,PHD CT lumbar spine wo con Reviewed date:07/23/2024 05:20:34 PM Interpretation: Performing Lab: Notes/Report: [address] [address] [address] Scan Report Signed Patient: Selene Barry MR#: [id number] 3611 : 1955 Acct:[id number] Age/Sex: 69 / F ADM Date: 05/11/24 Loc: HO.CT Attending Dr: Osmel MARADIAGA Ordering Physician: Osmel Mckoy Date of Service: 05/11/24 Procedure(s): CT lumbar spine wo IV con Accession Number(s): [id number] cc: Aaron Rob MD; Osmel Mckoy Report Number: [id number]: Total DLP = 681.00 mGy-cm EXAMINATION: CT [...] 07/23/24 0441 DD/ 1318 TD/TT: 05/11/24 1345 Cardiac Cath Technician: [place] [address] [place] Scan Report Signed Patient: Selene Barry MR#: [id number] 3611 : 1955 Acct:[id number] Age/Sex: 69 / F ADM Date: 05/11/24 Loc: HO.CT Attending Dr: Osmel MARADIAGA Ordering Physician: Osmel Mckoy Date of Service: 05/11/24 Procedure(s): CT lum bar spine wo IV con Accession Number(s): [id number] cc: Aaron Rob MD; Osmel Mckoy Report Number: [id number]: Total DLP = 681.00 mGy-cm EXAMINATION: CT [...] 07/23/24 0441 DD/ 1318 TD/TT: 05/11/24 1345 Cardiac Cath Technician: KYAW Monsivais Reviewed date:06/04/2024 12:48:56 PM Interpretation: Performing Lab:[facility], [address] [place] [phone] Notes/Report: Afshan Monsivais See Note Specimen held untested for 24 hours; Call to request Chemistry testing. XR chest 2V Reviewed date:07/06/2024 12:50:13 PM Interpretation:BRINDA 07/06/24 Performing Lab: Notes/Report: [address] [address] XRay Report Signed Patient: Selene Barry MR#: [id number] 3611 : 1955 Acct:[id number] Age/Sex: 69 / F ADM Date: 06/29/24 Loc: RICARDO.SUSAN Attending Dr: Aaron Rob MD Ordering Physician: Aaron Rob MD Date of Service: 06/29/24 Procedure(s): XR chest 2V Accession Number(s): [id number] cc: Aaron Rob MD CLINICAL HISTORY: Acute [...] in OV> 07/02/241054 DD/ 54 TD/TT: 07/02/241054 Cardiac Cath Technician: [address] [address] XRay Report Signed Patient: Selene Barry MR#: [id number] 3611 : 1955 Acct:[id number] Age/Sex: 69 / F ADM Date: 06/29/24 Loc: HO.XRAY Attending Dr: Aaron Rob MD Ordering Physician: Aaron Rob MD Date of Service: 06/29/24 Procedure(s): XR tigist st 2V Accession Number(s): [id number] cc: Aaron Rob MD CLINICAL HISTORY: Ac [...] OV> 07/02/24 105 DD/ 54 TD/TT: 07/02/241054 Cardiac Cath Technician: Free T4 (Free Thyroxine) Reviewed date:07/06/2024 05:11:14 PM Interpretation: Performing Lab:[facility], [address] [place] [phone] Notes/Report: Free T4 (Free Thyroxine) 1.31 0.71-1.85 ng/dL Afshan Monsivais Reviewed date:07/06/2024 01:24:48 PM Interpretation: Performing Lab:[facility], [address] [place] [phone] Notes/Report: Afshan Monsivais See Note Specimen held untested for 24 hours; Call to request Chemistry testing. Afshan Monsivais Reviewed date:10/04/2024 06:20:14 PM Interpretation: Performing Lab:[facility], [address] [place] [phone] Notes/Report: Hold Gold See Note Specimen held untested for 24 hours; Call to request Chemistry testing. Urine Culture Reviewed date:10/05/2024 09:02:59 AM Interpretation: Performing Lab:[facility], [address] [place] [phone] Notes/Report: Urine Culture No growth. XR chest 2V Reviewed date:10/19/2024 10:26:20 AM Interpretation: Performing Lab: Notes/Report: [address] [address] XRay Report Signed Patient: Selene Barry MR#: [id number] 3611 : 1955 Acct:[id number] Age/Sex: 69 / F ADM Date: 10/17/24 Loc: HOZULMA Attending Dr: Aaron Rob MD Ordering Physician: Aaron Rob MD Date of Service: 10/17/24 Procedure(s): XR chest 2V Accession Number(s): [id number] cc: Aaron Rob MD CLINICAL HISTORY: MILD [...] in OV> 10/18/242154 DD/ 54 TD/TT: 10/18/242154 Cardiac Cath Technician: [address] [address] XRay Report Signed Patient: Selene Barry MR#: [id number] 3611 : 1955 Acct:[id number] Age/Sex: 69 / F ADM Date: 10/17/24 Loc: HO.RAMONAAY Attending Dr: Aaron Rob MD Ordering Physician: Aaron Rob MD Date of Service: 10/17/24 Procedure(s): XR tigist st 2V Accession Number(s): [id number] cc: Aaron Rob MD CLINICAL HISTORY: MN [...] in OV> 10/18/242154 DD/ 54 TD/TT: 10/18/242154 Cardiac Cath Technician: Complete Blood Count Auto Di ff Reviewed date:11/02/2024 12:26:56 PM Interpretation: Performing Lab:[facility], [address] [place] [phone] Notes/Report: White Blood Count 7.9 4.8-10.8 X10*3/uL [...] te Reviewed date:11/02/2024 05:05:39 PM Interpretation: Performing Lab:[facility], [address] [place] [phone] Notes/Report: Erythrocyte Sedimentation Rate 12 0-20 MM/HR Patients with polycythemia and many hemoglobin abnormalities may have depressed sed rates whereas patients with anemia may have elevated sed rates. Comprehensive Met. Panel Reviewed date:11/08/2024 08:01:35 AM Interpretation:CBACK 11/06 Performing Lab:[address] [address] Notes/Report: Sodium 134 135-145 mmol/L Potassium 4.3 [...] Protein Reviewed date:11/02/2024 01:00:24 PM Interpretation: Performing Lab:[address] [address] Notes/Report: C Reactive Protein 1.94 < or = 0.50 mg/dL Glucose, Whole Blood Reviewed date:01/17/2025 12:33:33 PM Interpretation: Performing Lab:[facility], [address] [place] [phone] Notes/Report: Glucose, Whole Blood 147 60-115 mg/dL METER # : [id number] FL guidance in OR Reviewed date:01/17/2025 12:32:59 PM Interpretation: Performing Lab: Notes/Report: [address] [address] Fluoroscopy Report Signed Patient: Selene Barry MR#: [id number] 3611 : 1955 Acct:[id number] Age/Sex: 69 / F ADM Date: 01/17/25 Loc: HO.[facility] Attending Dr: Rodney Beltran MD, PhD Ordering Physician: Rodney Beltran MD, PhD Date of Service: 01/17/25 Procedure(s): FL guidance in OR Accession Number(s): [id number] cc: Aaron Rob MD; Rodney Beltran MD, [...] 01/17/25 0902 DD/ 0736 TD/TT: 01/17/25 0844 Cardiac Cath Technician: [place] [address] Fluoroscopy Report Signed Patient: Selene Barry MR#: [id number] 3611 : 1955 Acct:[id number] Age/Sex: 69 / F ADM Date: 01/17/25 Loc: HO.[facility] Attending Dr: Jessica Beltran MD, PhD Ordering Physician: Rodney Beltran MD, PhD Date of Service: 01/17/25 Procedure(s): FL guidance in OR Accession Number(s): [id number] cc: Aaron Rob MD; Rodney Beltran MD, [...] 01/17/25 0902 DD/ 0736 TD/TT: 01/17/25 0844 Cardiac Cath Technician: Reason For Referral Reason osteoporosis Diagnosis 1 Age-related osteopor osis without current pathological fracture (M81.0) Referral Organization Aaron Rob MD Referring Provider First Name Aaron Referring Provider Last Name Darron Referring Provider Speciality Internal M edicine Referred Provider Angelo Ramires Referred Provider Specialty Endocrinolog y General Notes Ursula Tracy 0 07/26/2024 03:26:47 PM >info faxed with [facility] spine Center office note Referral Priority Routine [...] 20 MG Take 1 capsule by mo [facility] once daily for 90 Active Calcium [...] W/U Status Risk Notes Problem Hypercoagulable state (05751728) Secondary hypercoagulable state (289.82) Active confirmed Problem Spinal stenosis (30264556) Spinal stenosis (724.00) Active confirmed Problem 72659945 Age-related osteoporosis without current pathological fracture (M81.0) Active confirmed Problem 718861935 Thyroid nodule (E04.1) Active confirm ed Problem 79796142 Lymphocytosis (D72.820) Active confirmed Problem 894014674658170 [facility] (cur[facility]) use of systemic steroids (Z79.52) Active confirmed Problem 05220620 Lumbar disc dise ase (M51.9) Active confirmed Problem 38051336 Essential hypert ension (I10) Active confirmed Problem 023698488 Mild intermitten t asthma without complication (J45.20) Active confirmed Problem 228355259 Chronic systolic congestive heart failure (I50.22) Active confirmed Problem 22818182 Hyperthyroidism (E05.90) Active confirmed Problem 435770253 Rheumatoid arthr itis involving multiple sites, 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) Active confirmed Problem 177114086 Graves disease (E05.00) Active confirmed Problem 140255616 History of coron marie artery bypass graft (Z95.1) Active confirmed Problem 8615991 Thyromegaly (E04.9) Active confirmed Problem 204281906 Non-rheumatic mi tral regurgitation (I34.0) Active confirmed Problem 394345479 Thyroid cancer (C73) Active confirmed Problem 815498166 Vaginal bleeding (N93.9) Active confirmed Problem 27123220 Sciatica of righ t side (M54.31) Active confirmed Problem 20021417 Hypercholesterol emia (E78.00) Active confirmed Problem 2574832364369 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) Active confirmed Problem 053451793 Atrophy of vagin a (N95.2) Active confirmed Problem 482301806 Vaginal prolapse (N81.10) Active confirmed Problem Type II diabetes mellitus without complication (471927365) Type 2 diabetes mellitus treated without insulin (E11.9) Active confirmed Problem 3766984 Prediabetes (R73.09) Inactive confirmed Vital Signs Blood pressure diastolic 66 mm Hg 01/25/2025 Height 63.5 in 01/25/2025 Blood pressure systolic 122 mm Hg 01/25/2025 Weight 168 lbs 01/25/2025 BMI 29.29 kg/m2 01/25/2025 Encounters Encounter Location Date Provider Diagnosis Aaron Rob MD [address] [place] [id number] 06/04/2024 Aaron Rob Prediabetes R73.09 a nd Hypercholesterolemia E78.00 Aaron Rob MD [address] [place] [id number] 10/04/2024 Aaron Rob Essential hypertensi on I10 ; Prediabetes R73.09 ; Lymphocytosis D72.820 ; Chronic systolic congestive heart failure I50.22 ; Hyperthyroidism E05.90 and Hypercholesterolemia E78.00 Aaron Rob MD [address] [place] [id number] 04/16/2024 Aaron Rob Encounter for administration of vaccine Z23 Aaron Rob MD [address] [place] [address] [id number] 06/11/2024 Aaron Rob Vaginal prolapse N81 .10 ; Essential hypertension I10 and Rheumatoid arthritis involving multiple sites, unspecified rheumatoid factor presence M06.9 Aaron Rob MD [address] [place] [address] [id number] 06/21/2024 Aaron Rob Mild intermittent as thma without complication J45.20 Aaron Rob MD [address] [place] [address] [id number] 06/29/2024 Aaron Rob Acute URI J06.9 Aaron Rob MD [address] [place] [address] [id number] 07/06/2024 Aaron Rob Mild intermittent as thma without complication J45.20 ; Hyperthyroidism E05.90 and Pneumonitis, interstitial J84.89 Aaron Rob MD [address] [place] [address] [id number] 10/11/2024 Aaron Rob Atrophy of vagina N9 5.2 ; Vaginal prolapse N81.10 ; Hematuria R31.9 ; Essential hypertension I10 ; Prediabetes R73.09 ; Mild intermittent asthma without complication J45.20 ; Chronic systolic congestive heart failure I50.22 ; Graves disease E05.00 and Hypercholesterolemia E78.00 Aaron Rob MD [address] [place] [address] [id number] 11/06/2024 Aaron Rob Essential hypertensi on I10 ; Rheumatoid arthritis involving multiple sites, unspecified rheumatoid factor presence M06.9 and Type 2 diabetes mellitus treated without insulin E11.9 Aaron Rob MD [address] [place] [address] [id number] 11/13/2024 Aaron Rob Type 2 diabetes santhosh itus treated without insulin E11.9 Aaron Rob MD [address] [place] [address] [id number] 11/29/2024 Aaron Rob Type 2 diabetes santhosh itus treated without insulin E11.9 and Headache, unspecified R51.9 Aaron Rob MD [address] [place] [address] [id number] 12/14/2024 Aaron Rob Type 2 diabetes santhosh itus treated without insulin E11.9 and Rectal bleeding K62.5 Aaron Rob MD [address] [place] [address] [id number] 01/14/2025 Aaron Rob Type 2 diabetes santhosh itus treated without insulin E11.9 ; Lumbar disc disease M51.9 and Essential hypertension I10 Aaron Rob MD [address] [place] [address] [id number] 01/25/2025 Aaron Rob Type 2 diabetes santhosh itus treated without insulin E11.9 and Lumbar disc disease M51.9 Aaron Rob MD [address] [place] [address] [id number] 11/29/2024 Aaron Rob MD [address] [place] [address] [id number] 12/03/2024 Aaron Rob MD [address] [place] [address] [id number] 12/03/2024 Aaron Rob MD [address] [place] [address] [id number] 12/04/2024 Aaron Rob MD [address] [place] [address] [id number] 12/14/2024 Aaron Rob MD [address] [place] [address] [id number] 12/17/2024 Aaron Rob MD [address] [place] [address] [id number] 01/17/2025 Aaron Rob Assessments Encounter Date Diagnosis [...] J06.9) THE XRAY ORDER WAS FAXED TO [facility] PATIENT REG. PATIENT AWARE, patient verbalized understanding [...] treated without insulin (ICD-10 - E11.9) consult diabetes educator, patient will continue current regiment 11/29/2024 [...] Details Provider Name:Aaron deleon, 04/16/2025 07:30:00 AM, [address] [place] [address], [address], [phone], Provider Name:Aaron deleon, 04/23/2025 10:15:00 AM, [address] [place] [address], [address], [phone], Provider Name:Aaron deleon, 10/08/2025 07:45:00 AM, [address] [place] [address], [address], [phone], Provider Name:Aaron deleon, 10/15/2025 09:30:00 AM, [address] [facility], [address], [place], [place], [phone], Insurance Providers Payer Name Payer Address Payer Phone Subscriber Number Group Number Insured Name Patient Relationship to Insured Coverage Start Date Coverage End Date [employer] [address] [place] [address] [id number] Selene Valdovinos Self - patient is the insured [facility] [address] [place] [address] [id number] Selene Valdovinos Self - patient is the insured Medical (General) History Medical History History ICD Code colonoscopy - 03/2008 hyperp lastic polyp due 03/[address] Mcgarry; Colonoscopy done 07/14/[address] Mcgarry - repeat 10 years [employer] appt 06/04/13 at [facility] hematuria w/u 2017 08/21/2019 Total Thyroidectomy Pulmonary nodule R91.1 nodule evaluated and no need for further eval 2017 Prediabetes R73.09 Surgical History Surgery Date(Month/Year) L3-4, L4-5 Decompression 03/2014 Total Thyroidectomy 07/2019
--- OUTSIDE RECORDS SUMMARY | 2025-03-26 14:36 | XMS_ITS | Clinical Summary ---
Author Organization [employer] Address [address] [place] [address] [address] [place] [address] Care Team Providers Care Slitter And Rewinder Name Role Phone Unavailable Primary Care Provider [...] Recently Relevant to Health Maintenance Insurance MEDICARE [facility] MEDICAID [facility] ADULT
--- OUTSIDE RECORDS SUMMARY | 2025-03-26 14:36 | XMS_ITS | Patient Health Record ---
Author Organization [facility] Address [address] [place] [address] Care Team Providers Care Hybrid Car Mechanic Name Role Phone Aaron Rob MD Primary Care Provider Angelo Caceres Unavailable [phone] Reason For Referral No Information Medications Medication [...] Problem Status W/U Status Risk Notes Problem [id number] Encounter for screening for malignant neoplasm of colon (Z12.11) Active confirmed Problem [id number] Gastroesophageal reflux disease without esophagitis (K21.9) Active confirmed Plan Of Treatment Future Test Test Name Order Date COLONOSCOPY 05/30/2018 Next Appt Details Provider Name:Angelo Lan , 04/09/2025 02:20:00 PM, [address] [facility], [address], [place], [address], Insurance Providers Payer Name Payer Address Payer Phone Subscriber Number Group Number Insured Name Patient Relationship to Insured Coverage Start Date Coverage End Date MEDICARE OF [place] [address] [facility] [place] [address] [id number] BERT HOOD Self - patient is the insured Medical (General) History Medical History History ICD Code Denies [place],DM,CVA,Lung disease,renal dise ase HTN CAD-with 3-V CABG as below--had CHF Rheumatoid arthritis Hyperthyroidism GERD--EGD in 03/2008--small HH, no esoph agitis, no Rubio'a Screening colonoscopy in 2007--hyperplastic polyp, sigmoid diverticulosis, small internal hemorrhoids Surgical History Surgery Date(Month/Year) 3-V CABG 04/11/2018 Back surgery
== END 2025-03-26 13:40 | disposition home or self-care (01) ==
LOC: HO.HWS 13:18
PROVIDERS: PCP Internal Medicine; Visit Provider Obstetrics & Gynecology
DX: Z01.419 Encounter for gynecological examination (general) (routine) without abnormal findings (principal)
CPT/HCPCS: G0101

== ENCOUNTER → 2025-03-26 13:18 | Outpatient (BNVA) | payer MEDICARE, SELFPAY | PROVIDERS: PCP Internal Medicine; Visit Provider Obstetrics & Gynecology | DX: Z01.419 Encounter for gynecological examination (general) (routine) without abnormal findings (principal) | CPT/HCPCS: G0101 ==

== ENCOUNTER 2025-04-16 07:30 | Outpatient (REF) | payer MEDICARE, SELFPAY ==
--- OUTSIDE RECORDS SUMMARY | 2024-12-03 05:00 | XMS_ITS ---
Author Organization Aaron Rob MD Address [address] [place] [phone] Care Team Providers Care It Program Manager Name Role Phone Aaron Rob Primary Care Provider REASON FOR VISIT weakness decreased appetite Encounters Encounter Location Date Provider Diagnosis Aaron Rob MD [address] [place] [address] [place] [phone] 12/03/2024 Aaron Rob Plan Of Treatment Next Appt Details Provider Name:Aaron deleon, 04/23/2025 10:15:00 AM, [address] [place] [address], [address], [phone], Provider Name:Aaron deleon, 10/08/2025 07:45:00 AM, [address] [place] [address], [address], [phone], Provider Name:Aaron Edi Aevlinaluz marina adrienne, 10/15/2025 09:30:00 AM, [address], [address], [place], [place], [phone], Progress Notes * Selene BARRYDOB: [birth year] (69 yo F)Acc No.[id number]:12/03/2024 Patient: Selene EASTON :1955 A ge:69 Y S ex:Female Address:[address] [place] [phone] * true * Date: Generated for Julius pittman/Fito/Riosmitting on: 12:23 PM EDT
--- OUTSIDE RECORDS SUMMARY | 2024-12-03 05:21 | XMS_ITS ---
Author Organization Aaron Rob MD Address [address] [place] [phone] Care Team Providers Care Plastic Surgery Manager Name Role Phone Aaron Rob Primary Care Provider REASON FOR VISIT bool in her stool Encounters Encounter Location Date Provider Diagnosis Aaron Rob MD [address] [place] [address] [address] [place] [phone] 12/03/2024 Aaron Rob Plan Of Treatment Next Appt Details Provider Name:Aaron deleon, 04/23/2025 10:15:00 AM, [address] [place] [address], [address], [phone], Provider Name:Aaron deleon, 10/08/2025 07:45:00 AM, [address] [place] [address], [address], [phone], Provider Name:Aaron Edi Atkinson adrienne, 10/15/2025 09:30:00 AM, [address], [address], [place], [place], [phone], Progress Notes * Selene BARRYDOB: [birth year] (69 yo F)Acc No.[id number]:12/03/2024 Patient: Selene EASTON :1955 A ge:69 Y S ex:Female Address:[address] [place] [phone] * true * Date: Generated for Julius pittman/Fito/Dionnaitting on: 12:24 PM EDT
--- OUTSIDE RECORDS SUMMARY | 2024-12-04 09:18 | XMS_ITS ---
Author Organization Aaron Rob MD Address [address] [place] [phone] Care Team Providers Care Waterworks Chief Engineer Name Role Phone Aaron Rob Primary Care Provider REASON FOR VISIT ER Encounters Encounter Location Date Provider Diagnosis Aaron Rob MD [address] [place] [address] [place] [phone] 12/04/2024 Aaron Rob Plan Of Treatment Next Appt Details Provider Name:Aaron deleon, 04/23/2025 10:15:00 AM, [address] [place] [address], [address], [phone], Provider Name:Aaron deleon, 10/08/2025 07:45:00 AM, [address] [place] [address], [address], [phone], Provider Name:Aaron Edi China deleon, 10/15/2025 09:30:00 AM, [address], [address], [place], [phone], Progress Notes * Selene BARRYDOB: [birth year] (69 yo F)Acc No.[id number]:12/04/2024 Patient: Selene EASTON :1955 A ge:69 Y S ex:Female Address:[address] [place] [address] [place] [phone] * true * Date: Generated for Julius pittman/Fito/Riosmitting on: 12:23 PM EDT
--- OUTSIDE RECORDS SUMMARY | 2024-12-14 06:30 | XMS_ITS ---
Author Organization Aaron Rob MD Address [address] [place] [phone] Care Team Providers Care Front Office Specialist Name Role Phone Aaron Rob Primary [...] MG Take 1 capsule by [facility] once daily for 90 Active Docusate [...] kg/m2 12/14/2024 weight is down 4 pounds [facility] e 11-29-24 Encounters Encounter Location Date Provider Diagnosis Aaron Rob MD [address] [place] [address] [address] [place], [place] [phone] 12/14/2024 Aaron Rob Type 2 diabetes mellitus [...] 4 Weeks, Reason: Provider Name:Aaron Atkinson ier, 04/23/2025 10:15:00 AM, [address] [place] [address], Suite [facility], [place], [place], [phone], Provider Name:Aaron Atkinson ier, 10/08/2025 07:45:00 AM, [address] [place] [address], [place] [address], [place], [place], [phone], Provider Name:Aaron Atkinson ier, 10/15/2025 09:30:00 AM, [address] [place] [address], [place] [address], [place], [place], [phone], Progress Notes * Gian BARRYwhitneyDOB: [birth year] (69 yo F)Acc No.[id number]:12/14/2024 Progress Notes Patient: Selene EASTON Provider: Josh Rob MD :1955 A ge:69 Y S ex:Female Date:12/14/2024 Address:[address] [place] [phone] Subjective: * Chief Complaints: * 2 weekAccompanied [...] 12/14/2024 Generated for Printi ng/Faesperanzag/eTransmitting on: 1 12:24 PM EDT History and Physical Notes * [...]
--- OUTSIDE RECORDS SUMMARY | 2024-12-14 06:57 | XMS_ITS ---
Author Organization Aaron Rob MD Address [address] [facility] [address] [place] [phone] Care Team Providers Care General Road Supervisor Name Role Phone Aaron Rob Primary Care Provider [phone] REASON FOR VISIT SURGERY CLERANCE NOTE Encounters Encounter Location Date Provider Diagnosis Aaron Rob MD [address] [place] [address] [place] [phone] 12/14/2024 Aaron Rob Plan Of Treatment Next Appt Details Provider Name:Aaron deleon, 04/23/2025 10:15:00 AM, [address] [place] [address], [address], [phone], Provider Name:Aaron deleon, 10/08/2025 07:45:00 AM, [address] [place] [address], [phone], Provider Name:Aaron Atkinson adrienne, 10/15/2025 09:30:00 AM, [address], [address], [place], [place], [phone], Progress Notes * Selene BARRYDOB: [birth year] (69 yo F)Acc No.[id number]:12/14/2024 Patient: Selene EASTON :1955 A ge:69 Y S ex:Female Address:[address] [place] [phone] * true * Date: Generated for Julius pittman/Fito/Riosmitting on: 12:25 PM EDT
--- OUTSIDE RECORDS SUMMARY | 2024-12-17 05:30 | XMS_ITS ---
Author Organization Aaron Rob MD Address [address] [place] [phone] Care Team Providers Care Contract Writer Name Role Phone Aaron Rob Primary Care Provider REASON FOR VISIT sick from Metformin Medications Medication SIG (Take, Route, Frequency, Duration) Notes Start Date End Date Status Januvia 50 MG 1 tab Orally daily for 30 days 12/17 Active Encounters Encounter Location Date Provider Diagnosis Aaron Rob MD 10 [facility] [address] [place] [phone] 12/17/2024 Aaron Rob Plan Of Treatment Medication Medication Name Sig Start Date Stop Date Notes Januvia 50 MG 1 tab Orally daily for 30 days 12/17/2024 Next Appt Details Provider Name:Aaron deleon, 04/23/2025 10:15:00 AM, [address] [place] [address], [address], [phone], Provider Name:Aaron Atkinson adrienne, 10/08/2025 07:45:00 AM, [address] [facility], [address], [place], [phone], Provider Name:Aaron Atkinson allenr, 10/15/2025 09:30:00 AM, [address] [facility], [address], [place], [phone], Progress Notes * Selene BARRYDOB: [birth year] (69 yo F)Acc No.[id number]:12/17/2024 Patient: Nohemi Selene MARIE :1955 A ge:69 Y S ex:Female Address:[address] [place] [phone] * Refills Start Januvia Tablet, 50 MG, Orally, 30 Tablet, 1 tab, daily, 30 days, Refills=5 * true * Date: Generated for Julius pittman/Fito/eTransmitting on: 1 12:23 PM EDT
--- OUTSIDE RECORDS SUMMARY | 2025-01-14 05:00 | XMS_ITS ---
Author Organization Aaron Rob MD Address [address] [place] [phone] Care Team Providers Care Patch Finisher Name Role Phone Aaron Rob Primary Care [...] Omeprazole 20 MG Take 1 capsule by [facility] once daily for 90 Active Januvia [...] Date Provider Diagnosis Aaron Rob MD 10 [facility] [address] [place], [place] [phone] 01/14/2025 Aaron Rob Type 2 diabetes mellitus [...] Next Appt Details Provider Name:Aaron Atkinson ier, 04/23/2025 10:15:00 AM, [address], [address], [place], [place], [phone], Provider Name:Aaron Atkinson ier, 10/08/2025 07:45:00 AM, [address], [address], [place], [place], [phone], Provider Name:Aaron Atkinson ier, 10/15/2025 09:30:00 AM, [address] [facility] [address], Suite [facility], [place], [place], [phone], Progress Notes * BARRYSelene GALLEGOSDOB: [birth year] (69 yo F)Acc No.[id number]:01/14/2025 Progress Notes Patient: Selene EASTON Provider: Josh Rob MD :1955 A ge:69 Y S ex:Female Date:01/14/2025 Address:[address] [place] [phone] Subjective: * Chief Complaints: * 4 week [...] 01/14/2025 Generated for Julius pittman/Fito/eTbeckiesmitting on: 1 12:23 PM EDT History and Physical Notes * [...]
--- OUTSIDE RECORDS SUMMARY | 2025-01-17 06:03 | XMS_ITS ---
Author Organization Aaron Rob MD Address [address] [place] [phone] Care Team Providers Care Residential Worker Name Role Phone Aaron Rob Primary Care Provider REASON FOR VISIT discharge Encounters Encounter Location Date Provider Diagnosis Aaron Rob MD [address] [place] [address] [place] [phone] 01/17/2025 Aaron Rob Plan Of Treatment Next Appt Details Provider Name:Aaron deleon, 04/23/2025 10:15:00 AM, [address] [place] [address], [address], [phone], Provider Name:Aaron deleon, 10/08/2025 07:45:00 AM, [address] [place] [address], [address], [phone], Provider Name:Aaron Edi China deleon, 10/15/2025 09:30:00 AM, [address], [address], [place], [phone], Progress Notes * Selene BARRYDOB: [birth year] (69 yo F)Acc No.[id number]:01/17/2025 Patient: Selene EASTON :1955 A ge:69 Y S ex:Female Address:[address] [place] [address] [facility] [place] [phone] * true * Date: Generated for Julius pittman/Fito/Riosmitting on: 12:23 PM EDT
--- OUTSIDE RECORDS SUMMARY | 2025-01-25 05:15 | XMS_ITS ---
Author Organization Aaron Rob MD Address [address] [place] [phone] Care Team Providers Care Farm Equipment Engineer Name Role Phone Aaron Rob Primary [...] Omeprazole 20 MG Take 1 capsule by [facility] once daily for 90 Active Calcium [...] Rob MD [address] [place], [place] [phone] 01/25/2025 Aaron Rob Type 2 diabetes mellitus [...] 2 Months, Reason: dm Provider Name:Aaron deleon, 04/23/2025 10:15:00 AM, [address], [address], [place], [place], [phone], Provider Name:Aaron Atkinson ier, 10/08/2025 07:45:00 AM, [address], [address], [place], [place], [phone], Provider Name:Aaron Atkinson ier, 10/15/2025 09:30:00 AM, [address], [address], [place], [phone], Progress Notes * Selene BARRYDOB: [birth year] (69 yo F)Acc No.[id number]:01/25/2025 Progress Notes Patient: Selene EASTON Provider: Josh Rob MD :1955 A ge:69 Y S ex:Female Date:01/25/2025 Address:[address] [place], [place] [phone] Subjective: * Chief Complaints: * F /u [...] 0 01/25/2025 Generated for Julius pittman/Fito/Dionnaitting on: 12:24 PM EDT History and Physical Notes [...]
--- OUTSIDE RECORDS SUMMARY | 2025-04-09 10:20 | XMS_ITS ---
Author Organization [facility] Address [address] [place] [address] Care Team Providers Care Scientific Helper Name Role Phone Darron PIERCE, Aaron Primary Care Provider Angelo Caceres [phone] REASON FOR VISIT Patient presents today for a rectal bleeding Encounters Encounter Location Date Provider Diagnosis [facility] [address] [facility] [address] [place] [address] 04/09/2025 Angelo Lan Plan Of Treatment Next Appt Details Provider Name:Angelo Arambula Lan , 08/01/2025 10:20:00 AM, [address], [address], [place], [address], Progress Notes * BERT KRAFTDOB: [birth year] (70 yo F)Acc No.[id number]:04/09/2025 Progress Notes Patient: BERT EASTON Provider: Lavelle Lan MD :1955 A ge:70 Y S ex:Female Date:04/09/2025 Address:[address] [place], [place] [phone] Pcp:Aaron Rob MD Subjective: * Chief Complaints: * 1 . Patient presents today for a rectal bleeding. * Medical History: Objective: * Vitals: Assessment: Plan: * Treatment: * * The named appointment provid er may or may not be the originator of this progress note, and it is not deemed complete until electronically signed by the appointment provider. Sign off status: Pending * Provider: Lavelle Lan MD Date: 1 Generated for Julius pittman/Fito/Dionnaitting on: 1 12:24 PM EDT
--- OUTSIDE RECORDS SUMMARY | 2025-04-16 03:30 | XMS_ITS ---
Author Organization Aaron Rob MD Address [address] [place] [phone] Care Team Providers Care Silver Service Waiter Name Role Phone Aaron Rob Primary Care Provider [phone] Results Component Value Reference Range Notes Hemoglobin A1c (Not yet revi ewed by provider) Interpretation: Performing Lab:[facility], [address] [place] [phone] Notes/Report: Hemoglobin A1c % 5.6 <6.0 % [...] average glucose, using the formula of the G4M-Lsytuow Average Glucose study (ADAG), Diabetes Care, Vol.31,#8, Jan. 2007 REASON FOR VISIT FASTING LIPIDS Immunizations Vaccine Route Administration Date Status Comme nts Influenza High Dose IM Intramuscular 04/16/2025 Administer ed Encounters Encounter Location Date Provider Diagnosis Aaron Rob MD [address] [place] [phone] 04/16/2025 Aaron Rob Type 2 diabetes santhosh [...] Treatment Pending Test Test Name Order Date Liver Panel 04/16/2025 Glucose Fasting 04/16/2025 Lipid Panel with Reflex 04/16/2025 Hemoglobin A1c 04/16/2025 Next Appt Details Provider Name:Aaron deleon, 04/23/2025 10:15:00 AM, [address] [place] [address], [address], [phone], Provider Name:Aaron deleon, 10/08/2025 07:45:00 AM, [address] [place] [address], [address], [phone], Provider Name:Aaron deleon, 10/15/2025 09:30:00 AM, [address] [place] [address], [address], [phone], Progress Notes * Selene BARRYDOB: [birth year] (70 yo F)Acc No.[id number]:04/16/2025 Progress Note Patient: Selene EASTON Provider: Josh Rob MD :1955 A ge:70 Y S ex:Female Date:04/16/2025 Address:[address] [place], [place] [phone] Subjective: * Chief Complaints: * 1 . FASTING LIPIDS. * Medical History: Objective: * Vitals: Assessment: * Assessment: 1. E ncounter for administration of vaccine - Z23 (Primary) 2 . T ype 2 diabetes mellitus treated without insulin - E11.9 3 . H ypercholesterolemia - E78.00 Plan: * Treatment: 2. H ypercholesterolemia L AB: Liver Panel L AB: Glucose Fasting L AB: Lipid Panel with Reflex L AB: Hemoglobin A1c (Collection Date & Time - 04/16/2025 07:30 AM) * Immunizations: Influenza High Dose : 0.5 mL (Dose No:1) (Route: Intramuscular) given by Kyung Cordova , Office Staff on Right Deltoid * Procedure Codes: 3 6415 VENIPUNCT, ROUTINE*, 64880 FLU VACC PRSV FREE INC ANTIG, G0008 ADMN FLU VAC NO FEE SCHED SAME DAY * * The named appointment provid er may or may not be the originator of this progress note, and it is not deemed complete until electronically signed by the appointment provider. Sign off status: Pending * Provider: Josh Rob MD Date: 1 Generated for Julius pittman/Fito/Dionnaitting on: 12:24 PM EDT
[2025-04-16 11:54] LABS: Alanine Aminotransferase 12 U/L (0-31); Albumin Level 3.8 g/dL (3.5-5.0); Alkaline Phosphatase 125 U/L (39-117); Aspartate Amino Transferase 31 U/L (5-31); Cholesterol 112 mg/dL (<200); HDL Cholesterol 29 mg/dL (>40); Total Protein 6.9 g/dL (6.5-8.0); Triglycerides 224 mg/dL (<150)
--- OUTSIDE RECORDS SUMMARY | 2025-04-16 12:24 | XMS_ITS | Patient Health Record ---
Author Organization [facility] Address [address] [place] [address] Care Team Providers Care Telephone Ad Taker Name Role Phone Aaron Rob MD Primary Care Provider Angelo Caceres Unavailable [phone] Reason For Referral No Information Medications Medication [...] Problem Status W/U Status Risk Notes Problem Screening for malignant neoplasm of colon (058839697) Encounter for screening for malignant neoplasm of colon (Z12.11) Active confirmed Problem Gastroesophageal reflux disease without esophagitis (765038692) Gastroesophageal reflux disease without esophagitis (K21.9) Active confirmed Encounters Encounter Location Date Provider Diagnosis [facility] [address] [place] [address] 04/05/2025 Angelo Lan Plan Of Treatment Future Test Test Name Order Date COLONOSCOPY 05/30/2018 Next Appt Details Provider Name:Angelo Arambula Lan , 08/01/2025 10:20:00 AM, [address], [address], [place], [phone], Insurance Providers Payer Name Payer Address Payer Phone Subscriber Number Group Number Insured Name Patient Relationship to Insured Coverage Start Date Coverage End Date MEDICARE OF [employer] [address] [facility] [phone] [id number] BERT HOOD Self - patient is the insured Medical (General) History Medical History History ICD Code Denies VA,DM,CVA,Lung disease,renal dise ase HTN CAD-with 3-V CABG as below--had CHF Rheumatoid arthritis Hyperthyroidism GERD--EGD in 03/2008--small HH, no esoph agitis, no Rubio'a Screening colonoscopy in 2007--hyperplastic polyp, sigmoid diverticulosis, small internal hemorrhoids Surgical History Surgery Date(Month/Year) 3-V CABG 04/11/2018 Back surgery
--- OUTSIDE RECORDS SUMMARY | 2025-04-16 12:25 | XMS_ITS | Encounter Summary ---
Author Organization [employer] Address [address] [facility] [address] [place] [address] Care Team Providers Care Wrapper Opener Name Role Phone Unavailable Primary Care Provider Unavailabl e Encounter Details Date Type Department Care Team (Late st Contact Info) Description 03/01/2023 Abstract [facility] [address] [place] [address] Sunny Martin, DMD [address] [place] [address] Social History Tobacco Use Types Packs/Day Years [...]
--- OUTSIDE RECORDS SUMMARY | 2025-04-16 12:25 | XMS_ITS | Clinical Summary ---
Author Organization [employer] Address [address] [place] [address] [address] [place] [address] Care Team Providers Care Bilingual Teacher Assistant Name Role Phone Unavailable Primary Care Provider [...] Recently Relevant to Health Maintenance Insurance MEDICARE [place] [facility] MEDICAID [facility] ADULT
--- OUTSIDE RECORDS SUMMARY | 2025-04-16 12:26 | XMS_ITS | Patient Health Record ---
Author Organization Aaron Rob MD Address [address] [place] [phone] Care Team Providers Care Toaster Element Repairer Name Role Phone Aaron Rob Primary Care Provider Allergies No Known Allergies Results Component Value Reference Range Notes Hemoglobin A1c Reviewed date:11/06/2024 02:24:19 PM Interpretation: Performing Lab: Notes/Report: Hemoglobin A1c 7.6 Liver Panel Reviewed date:06/04/2024 12:45:25 PM Interpretation: Performing Lab:[facility], [address] [place] [address] Notes/Report: Bilirubin Total 0.9 0.0-1.0 mg/dL Bilirubin Direct 0.3 0.0-0.5 mg/dL Aspartate Amino Transferase 30 5-31 U/L Alanine Aminotransferase 16 0-31 U/L Total Protein 7.3 6.5-8.0 g/dL Albumin Level 4.0 3.5-5.0 g/dL Alkaline Phosphatase 122 39-117 U/L Glucose Fasting Reviewed date:06/04/2024 12:49:55 PM Interpretation: Performing Lab:[address] [address] Notes/Report: Glucose Fasting 109 60-99 mg/dL A fasting glucose from 100-125 mg/dl is considered impaired (pre-diabetes). Lipid Panel with Reflex Reviewed date:06/04/2024 12:45:35 PM Interpretation: Performing Lab:[address] [address] Notes/Report: Triglycerides 114 <150 mg/dL Desirable Triglyceride: [...] A1c Reviewed date:06/04/2024 12:44:41 PM Interpretation: Performing Lab:[address] [address] Notes/Report: Hemoglobin A1c % 5.3 <6.0 % [...] average glucose, using the formula of the D9T-Xbnpppg Average Glucose study (ADAG), Diabetes Care, Vol.31,#8, Jan. 2007 Complete Blood Count Auto Di ff Reviewed date:10/04/2024 06:46:14 PM Interpretation: Performing Lab:[facility], [address] [place] [address] Notes/Report: White Blood Count 6.5 4.8-10.8 X10*3/uL [...] NRBC Abs Auto 0.000 0.0-0.012 X10*3/uL Comprehensive Centerview. Panel Fa st Reviewed date:10/05/2024 09:05:22 AM Interpretation: Performing Lab:[facility], [address] [place] [address] Notes/Report: Sodium 144 135-145 mmol/L Potassium 3.9 [...] Panel Reviewed date:10/04/2024 06:22:42 PM Interpretation: Performing Lab:[facility], [address] [place] [phone] Notes/Report: Triglycerides 101 <150 mg/dL Desirable Triglyceride: [...] T4 Reviewed date:10/04/2024 06:24:59 PM Interpretation: Performing Lab:[facility], [address] [place] [address] Notes/Report: TSH reflex Free T4 0.34 0.32-4.0 uIU/mL Microalbumin, Random Reviewed date:10/04/2024 06:28:23 PM Interpretation: Performing Lab:[address] [address] Notes/Report: Creatinine Urine 63.70 Microalbumin Urine 24.0 Microalbum/Creatinine Ratio Ur 37.6 <30 ug/mg cr Albumin/Creatinine Ratio Reference Ranges: Normal: < 30 ug/mg creatinine Microalbuminuria: 30 - 300 ug/mg creatinine Clinical Albuminuria: > 300 ug/mg creatinine Hemoglobin A1c Reviewed date:10/04/2024 06:25:17 PM Interpretation: Performing Lab:[address] [address] Notes/Report: Hemoglobin A1c % 5.8 <6.0 % [...] average glucose, using the formula of the V4N-Gmepntf Average Glucose study (ADAG), Diabetes Care, Vol.31,#8, Jan. 2007 UA ClnCatch+Micro w/rflx Cul t Reviewed date:10/05/2024 09:05:43 AM Interpretation: Performing Lab:[address] [address] Notes/Report: Urine, Clean Catch Color Urine Yellow Appearance Urine Clear PH 6.5 5.0-9.0 Glucose Urine UA Negative Negative mg/dL Urine Blood Small (1+) Negative Specific [place] - Urine 1.015 1.005-1.025 Urine Protein Negative Neg-Trace mg/dL Urine Ketones Negative Negative mg/dL Nitrite Urine Negative Negative Leukocyte Esterase Urine Trace Negative RBC Urine 11-20 0-2 /HPF WBC Urine 6-10 0-5 /HPF Squamous Epithelial Cell Urine 6-10 0-2 /HPF Bacteria Urine 3+ None Seen Hyaline Casts Urine 0-2 0-2 /LPF Hemoglobin A1c (Not yet revi ewed by provider) Interpretation: Performing Lab:[facility] [address] [address] Notes/Report: Hemoglobin A1c % 5.6 <6.0 % [...] average glucose, using the formula of the W3J-Lsaugmt Average Glucose study (ADAG), Diabetes Care, Vol.31,#8, 2007 TSH reflex Free T4 Reviewed date:07/06/2024 05:11:26 PM Interpretation: Performing Lab:[address] [address] Notes/Report: TSH reflex Free T4 0.16 0.32-4.0 [...] AM Interpretation: Performing Lab: Notes/Report: Value 124 Complete Blood Count Auto Di ff Reviewed date:05/03/2024 12:29:13 PM Interpretation: Performing Lab:[address] [address] Notes/Report: White Blood Count 6.5 4.8-10.8 X10*3/uL [...] te Reviewed date:05/03/2024 12:46:33 PM Interpretation: Performing Lab:[address] [address] Notes/Report: Erythrocyte Sedimentation Rate 5 0-20 MM/HR Patients with polycythemia and many hemoglobin abnormalities may have depressed sed rates whereas patients with anemia may have elevated sed rates. Comprehensive Met. Panel Reviewed date:05/03/2024 12:46:22 PM Interpretation: Performing Lab:[address] [address] Notes/Report: Sodium 141 135-145 mmol/L Potassium 4.5 3.3-5.1 mmol/L Slight Hemolysis.Interpret result with caution. Chloride 108 96-108 mmol/L Carbon Dioxide 21 22-29 mmol/L Anion Gap 17 12-20 Blood Urea Nitrogen 15 9-16 mg/dL Creatinine 0.60 0.5-1.4 mg/dL Estimated Glomerular Filt Rate > 60 NOTE: For -[place] individuals, multiply the result by 1.210. Chronic [...] Protein Reviewed date:05/03/2024 12:28:49 PM Interpretation: Performing Lab:[address] [address] Notes/Report: C Reactive Protein 0.61 < or = 0.50 mg/dL Hepatitis A,B,C Profile Reviewed date:05/03/2024 12:28:29 PM Interpretation: Performing Lab:[address] [address] Notes/Report: Hepatitis A Antibody IgM Nonreactive Nonreactive [...] TB Reviewed date:05/06/2024 12:59:20 PM Interpretation: Performing Lab:[address] [address] Notes/Report: TSpotTB Negative Negative A negative test [...] Passed For additional information, please refer to http://education.BOLD Guidance/fa q/MLK582 (This link is being provided for informational/ educational purposes only.) THIS TEST WAS PERFORMED AT: [employer] [address] RACHELL OLIVAREZ MD,PHD CT lumbar spine wo con Reviewed date:07/23/2024 05:20:34 PM Interpretation: Performing Lab: Notes/Report: [address] [address] [address] Scan Report Signed Patient: Selene Barry MR#: [id number] 3611 : 1955 Acct:[id number] Age/Sex: 69 / F ADM Date: 05/11/24 Loc: HO.CT Attending Dr: Osmel MARADIAGA Ordering Physician: Osmel Mckoy Date of Service: 05/11/24 Procedure(s): CT lumbar spine wo IV con Accession Number(s): [id number] cc: Aaron Rob MD; Osmel Mckoy Report Number: [id number]: Total DLP = 681.00 mGy-cm EXAMINATION: CT [...] by: García Benitez DO 07/23/2024 04:41 AM [facility] Dictated By: Marito Benitez DO Signed By: <Electronically signed by Marito Benitez DO in OV> 07/23/24 0441 DD/ 1318 TD/TT: 05/11/24 1345 Chief Building Inspector: [place] [address] [address] Scan Report Signed Patient: Selene Barry MR#: [id number] 3611 : 1955 Acct:[id number] Age/Sex: 69 / F ADM Date: 05/11/24 Loc: HO.CT Attending Dr: Osmel MARADIAGA Ordering Physician: Osmel Mckoy Date of Service: 05/11/24 Procedure(s): CT lum bar spine wo IV con Accession Number(s): [id number] cc: Aaron Rob MD; Osmel Mckoy Report Number: [id number]: Total DLP = 681.00 mGy-cm EXAMINATION: CT LUMBAR SPINE WITH OUT CONTRAST CLINICAL INFORMATION: Lumbar radiculopathy. COMPARISON: Lumbar spine MRI fro 03/14/2024. TECHNIQUE: Multidetector helica l imaging of [...] 07/23/24 0441 DD/ 1318 TD/TT: 05/11/24 1345 Chief Building Inspector: KYAW Monsivais Reviewed date:06/04/2024 12:48:56 PM Interpretation: Performing Lab:[facility], [address] [place] [address] Notes/Report: Afshan Monsivais See Note Specimen held untested for 24 hours; Call to request Chemistry testing. XR chest 2V Reviewed date:07/06/2024 12:50:13 PM Interpretation:BRINDA 07/06/24 Performing Lab: Notes/Report: [address] [address] XRay Report Signed Patient: Selene Barry MR#: [id number] 3611 : 1955 Acct:[id number] Age/Sex: 69 / F ADM Date: 06/29/24 Loc: HO.XRAY Attending Dr: Aaron Rob MD Ordering Physician: Aaron Rob MD Date of Service: 06/29/24 Procedure(s): XR chest 2V Accession Number(s): [id number] cc: Aaron Rob MD CLINICAL HISTORY: Acute [...] 07/02/24 1055 DD/ 1055 TD/TT: 07/02/24 1055 Chief Building Inspector: [place] [address] XRay Report Signed Patient: Selene Barry MR#: [id number] 3611 : 1955 Acct:[id number] Age/Sex: 69 / F ADM Date: 06/29/24 Loc: HO.XRAY Attending Dr: Aaron Rob MD Ordering Physician: Aaron Rob MD Date of Service: 06/29/24 Procedure(s): XR tigist st 2V Accession Number(s): [id number] cc: Aaron Rob MD CLINICAL HISTORY: Ac [...] OV> 07/02/24 1055 DD/ 105 TD/TT: 07/02/24 1055 Chief Building Inspector: Free T4 (Free Thyroxine) Reviewed date:07/06/2024 05:11:14 PM Interpretation: Performing Lab:[facility], [address] [place] [address] Notes/Report: Free T4 (Free Thyroxine) 1.31 0.71-1.85 ng/dL Afshan Monsivais Reviewed date:07/06/2024 01:24:48 PM Interpretation: Performing Lab:[facility], [address] [place] [address] Notes/Report: Afshan Monsivais See Note Specimen held untested for 24 hours; Call to request Chemistry testing. Afshan Monsivais Reviewed date:10/04/2024 06:20:14 PM Interpretation: Performing Lab:[facility], [address] [place] [address] Notes/Report: Hold Gold See Note Specimen held untested for 24 hours; Call to request Chemistry testing. Urine Culture Reviewed date:10/05/2024 09:02:59 AM Interpretation: Performing Lab:[facility], [address] [place] [address] Notes/Report: Urine Culture No growth. XR chest 2V Reviewed date:10/19/2024 10:26:20 AM Interpretation: Performing Lab: Notes/Report: [address] [address] XRay Report Signed Patient: Selene Barry MR#: [id number] 3611 : 1955 Acct:[id number] Age/Sex: 69 / F ADM Date: 10/17/24 Loc: HO.RAMONAAY Attending Dr: Aaron Rob MD Ordering Physician: Aaron Rob MD Date of Service: 10/17/24 Procedure(s): XR chest 2V Accession Number(s): [id number] cc: Aaron Rob MD CLINICAL HISTORY: MILD [...] in OV> 10/18/242154 DD/ 54 TD/TT: 10/18/242154 Chief Building Inspector: [address] [address] XRay Report Signed Patient: Selene Barry MR#: [id number] 3611 : 1955 Acct:[id number] Age/Sex: 69 / F ADM Date: 10/17/24 Loc: HOZULMA Attending Dr: Aaron Rob MD Ordering Physician: Aaron Rob MD Date of Service: 10/17/24 Procedure(s): XR tigist st 2V Accession Number(s): [id number] cc: Aaron Rob MD CLINICAL HISTORY: NV LD INTERMITTENT ASTHMA --- Additional Notes or [...] in OV> 10/18/242154 DD/ 54 TD/TT: 10/18/242154 Chief Building Inspector: Complete Blood Count Auto Di ff Reviewed date:11/02/2024 12:26:56 PM Interpretation: Performing Lab:[facility], [address] [place] [address] Notes/Report: White Blood Count 7.9 4.8-10.8 X10*3/uL [...] te Reviewed date:11/02/2024 05:05:39 PM Interpretation: Performing Lab:[facility], [address] [place] [address] Notes/Report: Erythrocyte Sedimentation Rate 12 0-20 MM/HR Patients with polycythemia and many hemoglobin abnormalities may have depressed sed rates whereas patients with anemia may have elevated sed rates. Comprehensive Met. Panel Reviewed date:11/08/2024 08:01:35 AM Interpretation:CBATR 11/06 Performing Lab:[facility], [address] [place] [address] Notes/Report: Sodium 134 135-145 mmol/L Potassium 4.3 [...] Protein Reviewed date:11/02/2024 01:00:24 PM Interpretation: Performing Lab:[facility], [address] [place] [address] Notes/Report: C Reactive Protein 1.94 < or = 0.50 mg/dL Glucose, Whole Blood Reviewed date:01/17/2025 12:33:33 PM Interpretation: Performing Lab:[facility], [address] [place] [address] Notes/Report: Glucose, Whole Blood 147 60-115 mg/dL METER # : [id number] FL guidance in OR Reviewed date:01/17/2025 12:32:59 PM Interpretation: Performing Lab: Notes/Report: [address] [address] Fluoroscopy Report Signed Patient: Selene Barry MR#: [id number] 3611 : 1955 Acct:[id number] Age/Sex: 69 / F ADM Date: 01/17/25 Loc: HO.[facility] Attending Dr: Rodney Beltran MD, PhD Ordering Physician: Rodney Beltran MD, PhD Date of Service: 01/17/25 Procedure(s): FL guidance in OR Accession Number(s): [id number] cc: Aaron Rob MD; Rodney Beltran MD, [...] Angelo Haley MD 01/17/2025 09:02 AM EDT Dictated By: Angelo Haley MD Signed By: <Electronically signed by Angelo Haley MD in OV> 01/17/25 0902 DD/ 0736 TD/TT: 01/17/25 0844 Chief Building Inspector: [place] [address] Fluoroscopy Report Signed Patient: Selene Barry MR#: [id number] 3611 : 1955 Acct:[id number] Age/Sex: 69 / F ADM Date: 01/17/25 Loc: HO.SSS Attending Dr: Jessica Beltran MD, PhD Ordering Physician: Rodney Beltran MD, PhD Date of Service: 01/17/25 Procedure(s): FL guidance in OR Accession Number(s): [id number] cc: Aaron Rob MD; Rodney Beltran MD, [...] signed by Angelo Haley MD in OV> 01/17/25901 DD/ 0736 TD/TT: 01/17/25 0844 Chief Building Inspector: Afshan Monsivais (Not yet reviewed by provider) Interpretation: Performing Lab:[facility], [address] [place] [address] Notes/Report: Afshan Monsivais See Note Specimen held untested for 24 hours; Call to request Chemistry testing. Reason For Referral Reason osteoporosis Diagnosis 1 Age-related osteopor osis without current pathological fracture (M81.0) Referral Organization Aaron Rob MD Referring Provider First Name Aaron Referring Provider Last Name Darron Referring Provider Speciality Internal edicine Referred Provider Angelo Ramires Referred Provider Specialty Endocrinolog y General Notes Ursula Tracy 0 07/26/2024 03:26:47 PM >info faxed with [facility] spine Center office note [...] High Dose IM Intramuscular 04/16/2024 Administer ed Influenza High Dose IM Intramuscular 04/16/2025 Administer ed Flu Vaccine Unknown 04/01/2014 Pending [...] W/U Status Risk Notes Problem Hypercoagulable state (64974500) Secondary hypercoagulable state (289.82) Active confirmed Problem Spinal stenosis (12711261) Spinal stenosis (724.00) Active confirmed Problem 05082713 Age-related osteoporosis without current pathological fracture (M81.0) Active confirmed Problem 544907959 Thyroid nodule (E04.1) Active confirm ed Problem 41340196 Lymphocytosis (D72.820) Active confirmed Problem 284146835251828 shelter (curre nt) use of systemic steroids (Z79.52) Active confirmed Problem 70780894 Lumbar disc dise ase (M51.9) Active confirmed Problem 40061748 Essential hypert ension (I10) Active confirmed Problem 261531481 Mild intermitten t asthma without complication (J45.20) Active confirmed Problem 352232663 Chronic systolic congestive heart failure (I50.22) Active confirmed Problem 96100589 Hyperthyroidism (E05.90) Active confirmed Problem 772996714 Rheumatoid arthr itis involving multiple sites, 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) Active confirmed Problem 537850449 Graves disease (E05.00) Active confirmed Problem 477694673 History of coron marie artery bypass graft (Z95.1) Active confirmed Problem 9651998 Thyromegaly (E04.9) Active confirmed Problem 621695892 Non-rheumatic mi tral regurgitation (I34.0) Active confirmed Problem 597979285 Thyroid cancer (C73) Active confirmed Problem 486917607 Vaginal bleeding (N93.9) Active confirmed Problem 78166386 Sciatica of righ t side (M54.31) Active confirmed Problem 49826760 Hypercholesterol emia (E78.00) Active confirmed Problem 0731479497393 Coronary artery disease of [place] artery of [place] heart with stable angina pectoris (I25.118) Active confirmed Problem 607678413 Atrophy of vagin a (N95.2) Active confirmed Problem 795795278 Vaginal prolapse (N81.10) Active confirmed Problem Type II diabetes mellitus without complication (209132625) Type 2 diabetes mellitus treated without insulin (E11.9) Active confirmed Problem 2789940 Prediabetes (R73.09) Inactive confirmed Vital Signs Blood pressure diastolic 66 mm Hg 01/25/2025 Height 63.5 in 01/25/2025 Blood pressure systolic 122 mm Hg 01/25/2025 Weight 168 lbs 01/25/2025 BMI 29.29 kg/m2 01/25/2025 Encounters Encounter Location Date Provider Diagnosis Aaron Rob MD [address] [place] [id number] 06/04/2024 Aaron Rob Prediabetes R73.09 a nd Hypercholesterolemia E78.00 Aaron Rob MD [address] [place] [address] Drive [address] [place] [id number] 10/04/2024 Aaron Rob Essential hypertensi on I10 ; Prediabetes R73.09 ; Lymphocytosis D72.820 ; Chronic systolic congestive heart failure I50.22 ; Hyperthyroidism E05.90 and Hypercholesterolemia E78.00 Aaron Rob MD [address] [place] [address] Drive [address] [place] [id number] 04/16/2025 Aaron Rob Type 2 diabetes santhosh itus treated without insulin E11.9 ; Encounter for administration of vaccine Z23 and Hypercholesterolemia E78.00 Aaron Rob MD [address] [place] [id number] 04/16/2024 Aaron Bombardier Encounter for administration of vaccine Z23 Aaron Rob MD [address] [place] [id number] 06/11/2024 Aaron Rob Vaginal prolapse N81 .10 ; Essential hypertension I10 and Rheumatoid arthritis involving multiple sites, unspecified rheumatoid factor presence M06.9 Aaron Rob MD [address] [place] [id number] 06/21/2024 Aaron Rob Mild intermittent as thma without complication J45.20 Aaron Rob MD [address] [place] [id number] 06/29/2024 Aaron Rob Acute URI J06.9 Aaron Rob MD [address] [place] [id number] 07/06/2024 Aaron Rob Mild intermittent as thma without complication J45.20 ; Hyperthyroidism E05.90 and Pneumonitis, interstitial J84.89 Aaron Rob MD [address] [place] [address] [id number] 10/11/2024 Aaron Rob Atrophy of vagina N9 5.2 ; Vaginal prolapse N81.10 ; Hematuria R31.9 ; Essential hypertension I10 ; Prediabetes R73.09 ; Mild intermittent asthma without complication J45.20 ; Chronic systolic congestive heart failure I50.22 ; Graves disease E05.00 and Hypercholesterolemia E78.00 Aaron Rob MD [address] [place] [id number] 11/06/2024 Aaron Rob Essential hypertensi on I10 ; Rheumatoid arthritis involving multiple sites, unspecified rheumatoid factor presence M06.9 and Type 2 diabetes mellitus treated without insulin E11.9 Aaron Rob MD [address] [place] [id number] 11/13/2024 Aaron Rob Type 2 diabetes santhosh itus treated without insulin E11.9 Aaron Rob MD [address] [place] [id number] 11/29/2024 Aaron Rob Type 2 diabetes santhosh itus treated without insulin E11.9 and Headache, unspecified R51.9 Aaron Rob MD [address] [place] [id number] 12/14/2024 Aaron Bombardier Type 2 diabetes santhosh itus treated without insulin E11.9 and Rectal bleeding K62.5 Aaron Rob MD [address] [place] [address] [id number] 01/14/2025 Aaron Rob Type 2 diabetes santhosh itus treated without insulin E11.9 ; Lumbar disc disease M51.9 and Essential hypertension I10 Aaron Rob MD [address] [place] [address] [id number] 01/25/2025 Aaron Rob Type 2 diabetes santhosh itus treated without insulin E11.9 and Lumbar disc disease M51.9 Aaron Rob MD [address] [place] [address] [id number] 11/29/2024 Aaron Rob MD [address] [place] [id number] 12/03/2024 Aaron Rob MD [address] [place] [address] [id number] 12/03/2024 Aaron Rob MD [address] [place] [address] [id number] 12/04/2024 Aaron Rob MD [address] [place] [address] [id number] 12/14/2024 Aaron Rob MD [address] [place] [id number] 12/17/2024 Aaron Rob MD [address] [place] [address] [id number] 01/17/2025 Aaron Rob Assessments Encounter Date Diagnosis (ICD Code) Assessment Notes Treatment Notes Treatment Clinical Notes Section Notes 06/04/2024 Prediabetes (ICD-10 - R73.09) 06/04/2024 Hypercholesterolemia (ICD-10 - E78.00) 10/04/2024 Essential hypertensi on (ICD-10 - I10) 04/16/2025 Type 2 diabetes mellitus treated without insulin (ICD-10 - E11.9) 04/16/2025 Encounter for administration of vaccine (ICD-10 - Z23) 04/16/2024 Encounter for administration of vaccine (ICD-10 - Z23) 06/11/2024 Vaginal prolapse (ICD-10 - N81.10) is trying to decide if surgery or pessary. will try pessary, 06/21/2024 Mild intermittent asthma without complication (ICD-10 - J45.20) 06/29/2024 Acute URI (ICD-10 - J06.9) THE XRAY ORDER WAS FAXED TO [facility] PATIENT REG. PATIENT AWARE, [...] treated without insulin (ICD-10 - E11.9) consult inclusion special educator, patient will continue current regiment 11/29/2024 [...] current regiment 10/04/2024 Prediabetes (ICD-10 - R73.09) 04/16/2025 Hypercholesterolemia (ICD-10 - E78.00) 06/11/2024 Essential hypertensi on (ICD-10 - I10) [...] & LAT 06/29/2024 BONE DENSITY DEXA 07/03/2021 Liver Panel 04/16/2025 Glucose Fasting 04/16/2025 Lipid Panel with Reflex 04/16/2025 Hold Gold 04/16/2025 Hemoglobin A1c 04/16/2025 Future Test Test Name Order Date XR CHEST 2 VIEW PA & LAT 08/03/2024 Next Appt Details Provider Name:Aaron Edi Atkinson ier, 04/23/2025 10:15:00 AM, [address] [place] [address], [address], [phone], Provider Name:Aaron Atkinson ier, 10/08/2025 07:45:00 AM, [address] [place] [address], [address], [phone], Provider Name:Aaron Atkinson ier, 10/15/2025 09:30:00 AM, [address] [place] [address], [address] [place] [address], [phone], Insurance Providers Payer Name Payer Address Payer Phone Subscriber Number Group Number Insured Name Patient Relationship to Insured Coverage Start Date Coverage End Date MEDICARE [employer] [address] [place] [phone] [id number] Selene Valdovinos Self - patient is the insured Medical (General) History Medical History History ICD Code colonoscopy - 03/2008 hyperp lastic polyp due 03/[address] Mcgarry; Colonoscopy done 07/14/[address] 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
[2025-04-16 14:29] LABS: Reflex LDLD? No
== END 2025-04-16 07:31 | disposition home or self-care (01) ==
LOC: HO.LNP 07:30
PROVIDERS: Visit Provider Internal Medicine
DX: E11.9 Type 2 diabetes mellitus without complications (principal); E78.00 Pure hypercholesterolemia, unspecified
CPT/HCPCS: 80061; 80076; 82947; 83036

== ENCOUNTER 2025-04-25 10:39 | Outpatient (REF) | payer MEDICARE, SELFPAY ==
--- OUTSIDE RECORDS SUMMARY | 2024-12-03 05:21 | XMS_ITS ---
Author Organization Aaron Rob MD Address [address] [place] [phone] Care Team Providers Care Dicer Operator Name Role Phone Aaron Rob Primary Care Provider REASON FOR VISIT bool in her stool Encounters Encounter Location Date Provider Diagnosis Aaron Rob MD [address] [place] [address] [place] [phone] 12/03/2024 Aaron Rob Plan Of Treatment Next Appt Details Provider Name:Aaron deleon, 10/08/2025 07:45:00 AM, [address] [place] [address], [address], [phone], Provider Name:Aaron deleon, 10/15/2025 09:30:00 AM, [address] [place] [address], [address], [phone], Progress Notes * BARRYSelene SANCHEZDOB: [birth year] (69 yo F)Acc No.[id number]:12/03/2024 Patient: Selene EASTON :1955 A ge:69 Y S ex:Female Address:[address] [place] [phone] * true * Date: Generated for Julius pittman/Fito/Riosmitting on: 01:08 PM EDT
--- OUTSIDE RECORDS SUMMARY | 2024-12-04 09:18 | XMS_ITS ---
Author Organization Aaron Rob MD Address [address] [place] [phone] Care Team Providers Care Care Process Manager Name Role Phone Aaron Rob Primary Care Provider REASON FOR VISIT ER Encounters Encounter Location Date Provider Diagnosis Aaron Rob MD 10 [facility] [address] [place] [phone] 12/04/2024 Aaron Rob Plan Of Treatment Next Appt Details Provider Name:Aaron deleon, 10/08/2025 07:45:00 AM, [address] [place] [address], [address], [phone], Provider Name:Aaron deleon, 10/15/2025 09:30:00 AM, [address] [place] [address], [address], [phone], Progress Notes * Selene BARRYDOB: [birth year] (69 yo F)Acc No.[id number]:12/04/2024 Patient: Selene EASTON :1955 A ge:69 Y S ex:Female Address:[address] [place] [phone] * true * Date: Generated for Julius pittman/Fito/Riosmitting on: 01:07 PM EDT
--- OUTSIDE RECORDS SUMMARY | 2024-12-14 06:30 | XMS_ITS ---
Author Organization Aaron Rob MD Address [address] [place] [phone] Care Team Providers Care Cattle Farmer Name Role Phone Aaron Rob Primary Care [...] Omeprazole 20 MG Take 1 capsule by [facility] once daily for 90 Active Docusate Sodium [...] kg/m2 12/14/2024 weight is down 4 pounds [facility] e 11-29-24 Encounters Encounter Location Date Provider Diagnosis Aaron Rob MD [address] [place] [address] [address] [place], [place] [phone] 12/14/2024 Aaron Rob Type 2 diabetes mellitus [...] Name:Aaron Atkinson ier, 10/08/2025 07:45:00 AM, 10 [facility], Suite [facility], [place], [place], [phone], Provider Name:Aaron Atkinson ier, 10/15/2025 09:30:00 AM, 10 [facility], [address], [place], [place], [phone], Progress Notes * BARRYSelene GALLEGOSDOB: [birth year] (69 yo F)Acc No.[id number]:12/14/2024 Progress Notes Patient: Selene EASTON Provider: Josh Rob MD :1955 A ge:69 Y S ex:Female Date:12/14/2024 Address:[address] [place] [phone] Subjective: * Chief Complaints: * 2 weekAccompanied [...] MD Date: 0 12/14/2024 Generated for Julius pittman/Fito/Jh on: 01:08 PM EDT History and Physical Notes * [...]
--- OUTSIDE RECORDS SUMMARY | 2024-12-14 06:57 | XMS_ITS ---
Author Organization Aaron Rob MD Address [address] [facility] [address] [place] [phone] Care Team Providers Care Partition Notcher Name Role Phone Aaron Rob Primary Care Provider REASON FOR VISIT SURGERY CLERANCE NOTE Encounters Encounter Location Date Provider Diagnosis Aaron Rob MD [address] [place] [address] [address] [place] [phone] 12/14/2024 Aaron Rob Plan Of Treatment Next Appt Details Provider Name:Aaron deleon, 10/08/2025 07:45:00 AM, [address] [place] [address], [address], [phone], Provider Name:Aaron deleon, 10/15/2025 09:30:00 AM, [address] [place] [address], [address], [phone], Progress Notes * BARRYSeleneDOB: [birth year] (69 yo F)Acc No.[id number]:12/14/2024 Patient: Selene EASTON :1955 A ge:69 Y S ex:Female Address:[address] [place] [phone] * true * Date: Generated for Julius pittman/Fito/Riosmitting on: 01:09 PM EDT
--- OUTSIDE RECORDS SUMMARY | 2024-12-17 05:30 | XMS_ITS ---
Author Organization Aaron Rob MD Address [address] [place] [phone] Care Team Providers Care Rectification Printer Name Role Phone Aaron Rob Primary Care Provider REASON FOR VISIT sick from Metformin Medications Medication SIG (Take, Route, Frequency, Duration) Notes Start Date End Date Status Januvia 50 MG 1 tab Orally daily for 30 days 12/17 Active Encounters Encounter Location Date Provider Diagnosis Aaron Rob MD 10 [facility] [address] [place] [phone] 12/17/2024 Aaron Rob Plan Of Treatment Medication Medication Name Sig Start Date Stop Date Notes Januvia 50 MG 1 tab Orally daily for 30 days 12/17/2024 Next Appt Details Provider Name:Aaron deleon, 10/08/2025 07:45:00 AM, [address], [address], [place], [phone], Provider Name:Aaron Atkinson adrienne, 10/15/2025 09:30:00 AM, [address], [address], [place], [phone], Progress Notes * Selene BARRYDOB: [birth year] (69 yo F)Acc No.[id number]:12/17/2024 Patient: Selene EASTON :1955 A ge:69 Y S ex:Female Address:[address] [place] [phone] * Refills Start Januvia Tablet, 50 MG, Orally, 30 Tablet, 1 tab, daily, 30 days, Refills=5 * true * Date: Generated for Julius pittman/Fito/Riosmitting on: 01:07 PM EDT
--- OUTSIDE RECORDS SUMMARY | 2025-01-14 05:00 | XMS_ITS ---
Author Organization Aaron Rob MD Address [address] [place] [phone] Care Team Providers Care Plant Etiologist Name Role Phone Aaron Rob Primary Care [...] Omeprazole 20 MG Take 1 capsule by [facility] once daily for 90 Active [...] Date Provider Diagnosis Aaron Rob MD 10 [facility] [address] [place], [place] [phone] 01/14/2025 Aaron Rob Type 2 diabetes mellitus [...] 07:45:00 AM, [address], [address], [place], [place], [phone], Provider Name:Aaron Atkinson ier, 10/15/2025 09:30:00 AM, [address], [address], [place], [place], [phone], Progress Notes * Selene BARRYDOB: [birth year] (69 yo F)Acc No.[id number]:01/14/2025 Progress Notes Patient: Selene EASTON Provider: Josh Rob MD :1955 A ge:69 Y S ex:Female Date:01/14/2025 Address:[address] [place], [place] [phone] Subjective: * Chief Complaints: * 4 week [...] 0 01/14/2025 Generated for Julius pittman/Fito/Dionnaitting on: 01:07 PM EDT History and Physical Notes * [...]
--- OUTSIDE RECORDS SUMMARY | 2025-01-17 06:03 | XMS_ITS ---
Author Organization Aaron Rob MD Address [address] [place] [phone] Care Team Providers Care Printing Shop Supervisor Name Role Phone Aaron Rob Primary Care Provider REASON FOR VISIT discharge Encounters Encounter Location Date Provider Diagnosis Aaron Rob MD 10 [facility] [address] [place] [phone] 01/17/2025 Aaron Rob Plan Of Treatment Next Appt Details Provider Name:Aaron deleon, 10/08/2025 07:45:00 AM, [address] [place] [address], [address], [phone], Provider Name:Aaron deleon, 10/15/2025 09:30:00 AM, [address] [place] [address], [address], [phone], Progress Notes * Selene BARRYDOB: [birth year] (69 yo F)Acc No.[id number]:01/17/2025 Patient: Selene EASTON :1955 A ge:69 Y S ex:Female Address:[address] [place] [phone] * true * Date: Generated for Julius pittman/Fito/Riosmitting on: 01:07 PM EDT
--- OUTSIDE RECORDS SUMMARY | 2025-01-25 05:15 | XMS_ITS ---
Author Organization Aaron Rob MD Address [address] [place] [phone] Care Team Providers Care Picking Supervisor Name Role Phone Aaron Rob Primary [...] Omeprazole 20 MG Take 1 capsule by [facility] once daily for 90 Active Calcium + [...] Rob MD [address] [place], [place] [phone] 01/25/2025 Aaron Rob Type 2 diabetes mellitus [...] 07:45:00 AM, [address], [address], [place], [place], [phone], Provider Name:Aaron Atkinson ier, 10/15/2025 09:30:00 AM, [address], [address], [place], [phone], Progress Notes * Selene BARRYDOB: [birth year] (69 yo F)Acc No.[id number]:01/25/2025 Progress Notes Patient: Selene EASTON Provider: Josh Rob MD :1955 A ge:69 Y S ex:Female Date:01/25/2025 Address:[address] [place] [address] YESSI Lockhart, [phone] Subjective: * Chief Complaints: * F /u [...] 01/25/2025 Generated for Julius pittman/Fito/eTransmitting on: 1 01:08 PM EDT History and Physical Notes [...]
--- OUTSIDE RECORDS SUMMARY | 2025-04-09 10:20 | XMS_ITS ---
Author Organization [facility] Address [address] [place] [address] Care Team Providers Care Grain Packer Name Role Phone Darron PIERCE, Aaron Primary Care Provider Angelo Caceres [phone] REASON FOR VISIT Patient presents today for a rectal bleeding Encounters Encounter Location Date Provider Diagnosis [facility] 10 [facility] [address] [place] [address] 04/09/2025 Angelo Lan Plan Of Treatment Next Appt Details Provider Name:Angelo Arambula Lan , 08/01/2025 10:20:00 AM, [address], [address], [place], [address], Progress Notes * BERT KRAFTDOB: [birth year] (70 yo F)Acc No.[id number]:04/09/2025 Progress Notes Patient: BERT EASTON Provider: Lavelle Lan MD :1955 A ge:70 Y S ex:Female Date:04/09/2025 Address:[address] [place], [place] [phone] Pcp:Aaron Rob MD Subjective: * Chief Complaints: [...] Date: 1 Generated for Julius pittman/Fito/Dionnaitting on: 01:08 PM EDT
--- OUTSIDE RECORDS SUMMARY | 2025-04-16 03:30 | XMS_ITS ---
Author Organization Aaron Rob MD Address [address] [place] [phone] Care Team Providers Care Cnc Machinist Name Role Phone Aaron Rob Primary Care Provider Results Component Value Reference Range Notes Liver Panel Reviewed date:04/16/2025 03:56:30 PM Interpretation: Performing Lab:[facility], [address] [place] [phone] Notes/Report: Bilirubin Total 0.4 0.0-1.0 mg/dL Bilirubin Direct 0.2 0.0-0.5 mg/dL Aspartate Amino Transferase 31 5-31 U/L Alanine Aminotransferase 12 0-31 U/L Total Protein 6.9 6.5-8.0 g/dL Albumin Level 3.8 3.5-5.0 g/dL Alkaline Phosphatase 125 39-117 U/L Glucose Fasting Reviewed date:04/16/2025 03:57:54 PM Interpretation: Performing Lab:[facility], [address] [place] [phone] Notes/Report: Glucose Fasting 118 60-99 mg/dL A fasting glucose from 100-125 mg/dl is considered impaired (pre-diabetes). Lipid Panel with Reflex Reviewed date:04/16/2025 04:02:18 PM Interpretation: Performing Lab:[facility], [address] [place] [phone] Notes/Report: Triglycerides 224 <150 mg/dL Desirable Triglyceride: [...] A1c Reviewed date:04/16/2025 12:25:34 PM Interpretation: Performing Lab:[facility], [address] [place] [phone] Notes/Report: Hemoglobin A1c % 5.6 <6.0 % [...] average glucose, using the formula of the F7W-Dhpmhsy Average Glucose study (ADAG), Diabetes Care, Vol.31,#8, 2007 REASON FOR VISIT FASTING LIPIDS Immunizations Vaccine Route Administration Date Status Comme nts Influenza High Dose IM Intramuscular 04/16/2025 Administer ed Encounters Encounter Location Date Provider Diagnosis Aaron Rob MD [address] [place] [address] [place] [phone] 04/16/2025 Aaron Rob Type 2 diabetes santhosh [...] Provider Name:Aaron Atkinson ieaddison, 10/08/2025 07:45:00 AM, [address] [place] [address], [place] [address], [place], [place], [phone], Provider Name:Aaron deleon, 10/15/2025 09:30:00 AM, [address] [place] [address], [place] [address], [place], [place], [phone], Progress Notes * Selene BARRYDOB: [birth year] (70 yo F)Acc No.[id number]:04/16/2025 Progress Note Patient: Selene EASTON Provider: Josh Rob MD :1955 A ge:70 Y S ex:Female Date:04/16/2025 Address:[address] [place], [place] [phone] Subjective: * Chief Complaints: * 1 . [...] * Procedure Codes: 3 6415 VENIPUNCT, ROUTINE*, 88718 FLU VACC PRSV FREE INC ANTIG, G0008 ADMN FLU VAC NO FEE SCHED SAME DAY * * The named appointment provid er may or may not be the originator of this progress note, and it is not deemed complete until electronically signed by the appointment provider. Sign off status: Pending * Provider: Josh Rob MD Date: Generated for Julius pittman/Fito/Jh on: 01:09 PM EDT
--- OUTSIDE RECORDS SUMMARY | 2025-04-23 06:15 | XMS_ITS ---
Author Organization Aaron Rob MD Address [address] [place] [phone] Care Team Providers Care Dye Tub Tender Name Role Phone Aaron Rob Primary [...] Status Risk Notes Problem History of hysterectomy (719956446) History of hysterectomy (Z90.710) Active confirmed Vital Signs Blood pressure systolic 144 mm Hg 04/23/20 25 Blood pressure diastolic 80 mm Hg 025 Height 63.5 in 04/23/2025 Weight 167 lbs 04/23/2025 BMI 29.12 kg/m2 04/23/2025 Encounters Encounter Location Date Provider Diagnosis Aaron Rob MD [address] [facility] [address] [place], [place] [phone] 04/23/2025 Aaron Rob History of hysterectomy Z90.710 ; Vaginal bleeding N93.9 ; Essential hypertension I10 and 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 Assessments Encounter Date Diagnosis (ICD Code) Assessment Notes Treatment Notes Treatment Clinical Notes Section Notes 04/23/2025 History of hysterectomy (ICD-10 - Z90.710) need notes from dr wolfe at [facility] 04/23/2025 Vaginal bleeding (ICD-10 - N93.9) has [...] hysterectomy need notes from dr wolfe at [facility] Vaginal bleeding has a hysterectomy a nd [...] 07:45:00 AM, [address], [address], [place], [place], [phone], Provider Name:Aaron Atkinson ier, 10/15/2025 09:30:00 AM, [address], [address], [place], [place], [phone], Progress Notes * Selene BARRYDOB: [birth year] (70 yo F)Acc No.[id number]:04/23/2025 Progress Notes Patient: Selene EASTON Provider: Josh Rob MD :1955 A ge:70 Y S ex:Female Date:04/23/2025 Address:[address] [place] [phone] Subjective: * Chief Complaints: * 1 . 2 month DM. * HPI: S ymptom(s): patient is a [...] D enies N ausea. * Medical History: c olonoscopy - 03/2008 hyperplastic polyp due 03/[address] Lan; Colonoscopy done 07/14/[address] 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 * Medications: T aking Magnesium 250 MG Capsule 1 capsule Orally [...] 1 tablet Orally twice a day , Taking Januvia 50 MG Tablet 1 tab Orally daily , Not-Taking/PRN Enbrel 50 MG/ML Solution Prefilled Syringe 1 mL Subcutaneous , Not-Taking/PRN Amoxicillin-Pot Clavulanate 875-125 MG Tablet 1 tablet Orally every 12 hrs , Not-Taking/PRN Docusate Sodium 100 MG Capsule 1 capsule as needed Orally Once a day , Medication List reviewed and reconciled with the patient * Allergies: N .K.D.A. Objective: * Vitals: H t: 63.5, Wt: [...] evidence of temporal arteritis on exam * * The named appointment provid er may or may not be the originator of this progress note, and it is not deemed complete until electronically signed by the appointment provider. Sign off status: Pending * Provider: Josh Rob MD Date: Generated for Julius Weber/Jh on: 01:08 PM EDT History and Physical [...]
[2025-04-25 11:19] LABS: MANUAL DIFF FLAG NO
[2025-04-25 11:29] LABS: Hematocrit 41.7 % (37.0-47.0); Hemoglobin 13.2 g/dl (12.0-16.0); Imm Gran Abs Auto 0.02 X10*3/uL (0.00-0.03); Imm Gran Pct Auto 0.3 % (0.0-0.4); Lymphocytes Absolute Auto 2.4 X10*3/uL (1.2-4.9); Mean Corpuscular HGB Conc 31.7 g/dl (31.0-35.0); Mean Corpuscular Hemoglobin 27.3 pg (27.0-33.0); Mean Corpuscular Volume 86.3 fL (80.0-98.0); NRBC Abs Auto 0.000 X10*3/uL (0.0-0.012); NRBC Pct Auto 0.0 /100WBC (0.0-0.2); Platelet Count 319 X10*3/uL (160-400); Red Blood Count 4.83 X10*6/uL (4.20-5.50); White Blood Count 6.5 X10*3/uL (4.8-10.8)
[2025-04-25 12:03] LABS: Alanine Aminotransferase 14 U/L (0-31); Albumin Level 4.4 g/dL (3.5-5.0); Alkaline Phosphatase 128 U/L (39-117); Anion Gap 12 (12-20); Aspartate Amino Transferase 20 U/L (5-31); Blood Urea Nitrogen 14 mg/dL (9-16); Calcium 9.2 mg/dL (8.4-10.2); Carbon Dioxide 29 mmol/L (22-29); Chloride 106 mmol/L (96-108); Estimated Glomerular Filt Rate > 60; Potassium 4.2 mmol/L (3.3-5.1); Sodium 143 mmol/L (135-145); Total Protein 7.7 g/dL (6.5-8.0)
--- OUTSIDE RECORDS SUMMARY | 2025-04-25 13:09 | XMS_ITS | Patient Health Record ---
Author Organization [facility] Address [address] [place] [address] Care Team Providers Care Gang Boss Name Role Phone Aaron Rob MD Primary Care Provider Angelo Caceres Unavailable [phone] Reason For Referral No Information Medications Medication [...] Problem Screening for malignant neoplasm of colon (596422959) Encounter for screening for malignant neoplasm of colon (Z12.11) Active confirmed Problem Gastroesophageal reflux disease without esophagitis (031192071) Gastroesophageal reflux disease without esophagitis (K21.9) Active confirmed Encounters Encounter Location Date Provider Diagnosis [facility] [address] [place] [phone] 04/05/2025 Angelo Lan Plan Of Treatment Future Test Test Name Order Date COLONOSCOPY 05/30/2018 Next Appt Details Provider Name:Angelo Arambula Lan , 08/01/2025 10:20:00 AM, [address], [address], [place], [phone], Insurance Providers Payer Name Payer Address Payer Phone Subscriber Number Group Number Insured Name Patient Relationship to Insured Coverage Start Date Coverage End Date MEDICARE OF [employer] [address] [facility] [phone] [id number] BERT HOOD Self - patient is the insured Medical (General) History Medical History History ICD Code Denies [place],DM,CVA,Lung disease,renal dise ase HTN CAD-with 3-V CABG as below--had CHF Rheumatoid arthritis Hyperthyroidism GERD--EGD in 03/2008--small HH, no esoph agitis, no Rubio'a Screening colonoscopy in 2007--hyperplastic polyp, sigmoid diverticulosis, small internal hemorrhoids Surgical History Surgery Date(Month/Year) 3-V CABG 04/11/2018 Back surgery
--- OUTSIDE RECORDS SUMMARY | 2025-04-25 13:09 | XMS_ITS | Encounter Summary ---
Author Organization [employer] Address [address] [facility] 7t [place] [address] Care Team Providers Care Management Development Specialist Name Role Phone Unavailable Primary Care Provider Unavailabl e Encounter Details Date Type Department Care Team (Late st Contact Info) Description 03/01/2023 Abstract [facility] [address] [place] [address] Sunny Martin, DMD [address] [place] [address] Social History Tobacco Use Types Packs/Day Years [...]
--- OUTSIDE RECORDS SUMMARY | 2025-04-25 13:09 | XMS_ITS | Clinical Summary ---
Author Organization [employer] Address [address] [place] [address] 7[address] [place] [address] Care Team Providers Care Senior Financial Name Role Phone Unavailable Primary Care Provider [...] Recently Relevant to Health Maintenance Insurance MEDICARE [facility] [facility] MEDICAID [place]
--- OUTSIDE RECORDS SUMMARY | 2025-04-25 13:10 | XMS_ITS | Patient Health Record ---
Author Organization Aaron Rob MD Address [address] [place] [phone] Care Team Providers Care Adult Basic Education Teacher Name Role Phone Aaron Rob Primary Care Provider [phone] Allergies No Known Allergies Results Component Value Reference Range Notes Hemoglobin A1c Reviewed date:11/06/2024 02:24:19 PM Interpretation: Performing Lab: Notes/Report: Hemoglobin A1c 7.6 Liver Panel Reviewed date:06/04/2024 12:45:25 PM Interpretation: Performing Lab:[facility], [address] [place] [address] Notes/Report: Bilirubin Total 0.9 0.0-1.0 mg/dL Bilirubin Direct 0.3 0.0-0.5 mg/dL Aspartate Amino Transferase 30 5-31 U/L Alanine Aminotransferase 16 0-31 U/L Total Protein 7.3 6.5-8.0 g/dL Albumin Level 4.0 3.5-5.0 g/dL Alkaline Phosphatase 122 39-117 U/L Glucose Fasting Reviewed date:06/04/2024 12:49:55 PM Interpretation: Performing Lab:[address] [address] Notes/Report: Glucose Fasting 109 60-99 mg/dL A fasting glucose from 100-125 mg/dl is considered impaired (pre-diabetes). Lipid Panel with Reflex Reviewed date:06/04/2024 12:45:35 PM Interpretation: Performing Lab:[address] [address] Notes/Report: Triglycerides 114 <150 mg/dL Desirable Triglyceride: [...] A1c Reviewed date:06/04/2024 12:44:41 PM Interpretation: Performing Lab:[address] [address] Notes/Report: Hemoglobin A1c % 5.3 <6.0 % [...] average glucose, using the formula of the U6Y-Gzycudn Average Glucose study (ADAG), Diabetes Care, Vol.31,#8, Jan. 2007 Complete Blood Count Auto Di ff Reviewed date:10/04/2024 06:46:14 PM Interpretation: Performing Lab:[facility], [address] [place] [address] Notes/Report: White Blood Count 6.5 4.8-10.8 X10*3/uL [...] NRBC Abs Auto 0.000 0.0-0.012 X10*3/uL Comprehensive [place]. Panel Fa st Reviewed date:10/05/2024 09:05:22 AM Interpretation: Performing Lab:[facility], [address] [place] [address] Notes/Report: Sodium 144 135-145 mmol/L Potassium 3.9 [...] Reviewed date:10/04/2024 06:22:42 PM Interpretation: Performing Lab:[facility], [address] [place] [address] Notes/Report: Triglycerides 101 <150 mg/dL Desirable Triglyceride: [...] Reviewed date:10/04/2024 06:24:59 PM Interpretation: Performing Lab:[facility], [address] [place] [address] Notes/Report: TSH reflex Free T4 0.34 0.32-4.0 uIU/mL Microalbumin, Random Reviewed date:10/04/2024 06:28:23 PM Interpretation: Performing Lab:[address] [address] Notes/Report: Creatinine Urine 63.70 Microalbumin Urine 24.0 Microalbum/Creatinine Ratio Ur 37.6 <30 ug/mg cr Albumin/Creatinine Ratio Reference Ranges: Normal: < 30 ug/mg creatinine Microalbuminuria: 30 - 300 ug/mg creatinine Clinical Albuminuria: > 300 ug/mg creatinine Hemoglobin A1c Reviewed date:10/04/2024 06:25:17 PM Interpretation: Performing Lab:[address] [address] Notes/Report: Hemoglobin A1c % 5.8 <6.0 % [...] average glucose, using the formula of the B8L-Gsnlcjd Average Glucose study (ADAG), Diabetes Care, Vol.31,#8, Jan. 2007 UA ClnCatch+Micro w/rflx Cul t Reviewed date:10/05/2024 09:05:43 AM Interpretation: Performing Lab:[address] [address] Notes/Report: Urine, Clean Catch Color Urine Yellow Appearance Urine Clear PH 6.5 5.0-9.0 Glucose Urine UA Negative Negative mg/dL Urine Blood Small (1+) Negative Specific Clements - Urine 1.015 1.005-1.025 Urine Protein Negative Neg-Trace mg/dL Urine Ketones Negative Negative mg/dL Nitrite Urine Negative Negative Leukocyte Esterase Urine Trace Negative RBC Urine 11-20 0-2 /HPF WBC Urine 6-10 0-5 /HPF Squamous Epithelial Cell Urine 6-10 0-2 /HPF Bacteria Urine 3+ None Seen Hyaline Casts Urine 0-2 0-2 /LPF Liver Panel Reviewed date:04/16/2025 03:56:30 PM Interpretation: Performing Lab:[facility], [address] [place] [address] Notes/Report: Bilirubin Total 0.4 0.0-1.0 mg/dL Bilirubin Direct 0.2 0.0-0.5 mg/dL Aspartate Amino Transferase 31 5-31 U/L Alanine Aminotransferase 12 0-31 U/L Total Protein 6.9 6.5-8.0 g/dL Albumin Level 3.8 3.5-5.0 g/dL Alkaline Phosphatase 125 39-117 U/L Glucose Fasting Reviewed date:04/16/2025 03:57:54 PM Interpretation: Performing Lab:[facility], [address] [place] [address] Notes/Report: Glucose Fasting 118 60-99 mg/dL A fasting glucose from 100-125 mg/dl is considered impaired (pre-diabetes). Lipid Panel with Reflex Reviewed date:04/16/2025 04:02:18 PM Interpretation: Performing Lab:[facility], [address] [place] [phone] Notes/Report: Triglycerides 224 <150 mg/dL Desirable Triglyceride: [...] A1c Reviewed date:04/16/2025 12:25:34 PM Interpretation: Performing Lab:[facility], [address] [place] [address] Notes/Report: Hemoglobin A1c % 5.6 <6.0 % [...] average glucose, using the formula of the E1J-Fstjxzf Average Glucose study (ADAG), Diabetes Care, Vol.31,#8, 2007 TSH reflex Free T4 Reviewed date:07/06/2024 05:11:26 PM Interpretation: Performing Lab:[facility], [address] [place] [address] Notes/Report: TSH reflex Free T4 0.16 0.32-4.0 [...] Reviewed date:05/03/2024 12:29:13 PM Interpretation: Performing Lab:[facility], [address] [place] [address] Notes/Report: White Blood Count 6.5 4.8-10.8 X10*3/uL [...] te Reviewed date:05/03/2024 12:46:33 PM Interpretation: Performing Lab:[address] [address] Notes/Report: Erythrocyte Sedimentation Rate 5 0-20 MM/HR Patients with polycythemia and many hemoglobin abnormalities may have depressed sed rates whereas patients with anemia may have elevated sed rates. Comprehensive Met. Panel Reviewed date:05/03/2024 12:46:22 PM Interpretation: Performing Lab:[address] [address] Notes/Report: Sodium 141 135-145 mmol/L Potassium 4.5 3.3-5.1 mmol/L Slight Hemolysis.Interpret result with caution. Chloride 108 96-108 mmol/L Carbon Dioxide 21 22-29 mmol/L Anion Gap 17 12-20 Blood Urea Nitrogen 15 9-16 mg/dL Creatinine 0.60 0.5-1.4 mg/dL Estimated Glomerular Filt Rate > 60 NOTE: For -Luxembourger individuals, multiply the result by 1.210. Chronic [...] Protein Reviewed date:05/03/2024 12:28:49 PM Interpretation: Performing Lab:[address] [address] Notes/Report: C Reactive Protein 0.61 < or = 0.50 mg/dL Hepatitis A,B,C Profile Reviewed date:05/03/2024 12:28:29 PM Interpretation: Performing Lab:[address] [address] Notes/Report: Hepatitis A Antibody IgM Nonreactive Nonreactive [...] TB Reviewed date:05/06/2024 12:59:20 PM Interpretation: Performing Lab:[address] [address] Notes/Report: TSpotTB Negative Negative A negative test [...] Passed For additional information, please refer to [email or web address] (This link is being provided for informational/ educational purposes only.) THIS TEST WAS PERFORMED AT: [facility] [address] RACHELL OLIVAREZ MD,PHD CT lumbar spine wo con Reviewed date:07/23/2024 05:20:34 PM Interpretation: Performing Lab: Notes/Report: [address] [address] [address] Scan Report Signed Patient: Selene Barry MR#: [id number] 3611 : 1955 Acct:[id number] Age/Sex: 69 / F ADM Date: 05/11/24 Loc: HO.CT Attending Dr: Osmel MARADIAGA Ordering Physician: Osmel Mckoy Date of Service: 05/11/24 Procedure(s): CT lumbar spine wo IV con Accession Number(s): [id number] cc: Aaron Rob MD; Osmel Mckoy Report Number: [id number]: Total DLP = 681.00 mGy-cm EXAMINATION: CT [...] 07/23/24 0441 DD/ 1318 TD/TT: 05/11/24 1345 Truck Supervisor: [place] [address] CT Scan Report Signed Patient: Selene Barry MR#: [id number] : 1955 Acct:[id number] Age/Sex: 69 / F ADM Date: 05/11/24 Loc: HO.CT Attending Dr: Osmel MARADIAGA Ordering Physician: Osmel Mckoy Date of Service: 05/11/24 Procedure(s): CT lum bar spine wo IV con Accession Number(s): [id number] cc: Aaron Rob MD; Osmel Mckoy Report Number: [id number]: Total DLP = 681.00 mGy-cm EXAMINATION: CT [...] of S1. 1. No evidence of ac mcgrath fracture or traumatic subluxation of the lumbar [...] 07/23/24 0441 DD/ 1318 TD/TT: 05/11/24 1345 Truck Supervisor: KYAW Monsivais Reviewed date:06/04/2024 12:48:56 PM Interpretation: Performing Lab:[facility], [address] [place] [phone] Notes/Report: Afshan Monsivais See Note Specimen held untested for 24 hours; Call to request Chemistry testing. XR chest 2V Reviewed date:07/06/2024 12:50:13 PM Interpretation:WALECK 07/06/24 Performing Lab: Notes/Report: [address] [address] XRay Report Signed Patient: Selene Barry MR#: [id number] 3611 : 1955 Acct:[id number] Age/Sex: 69 / F ADM Date: 06/29/24 Loc: HO.XRAY Attending Dr: Aaron Rob MD Ordering Physician: Aaron Rob MD Date of Service: 06/29/24 Procedure(s): XR chest 2V Accession Number(s): [id number] cc: Aaron Rob MD CLINICAL HISTORY: Acute [...] in OV> 07/02/24 105 DD/ 54 TD/TT: 07/02/24 105 Truck Supervisor: [place] [address] XRay Report Signed Patient: Selene Barry MR#: [id number] 3611 : 1955 Acct:[id number] Age/Sex: 69 / F ADM Date: 06/29/24 Loc: CARMEL Attending Dr: Aaron Rob MD Ordering Physician: Aaron Rob MD Date of Service: 06/29/24 Procedure(s): XR tigist st 2V Accession Number(s): [id number] cc: Aaron Rob MD CLINICAL HISTORY: Ac mcgrath URI Chest two views Comparison: None Findings: [...] 07/02/24 1055 DD/ 1055 TD/TT: 07/02/24 1055 Truck Supervisor: Free T4 (Free Thyroxine) Reviewed date:07/06/2024 05:11:14 PM Interpretation: Performing Lab:[facility], [address] [place] [address] Notes/Report: Free T4 (Free Thyroxine) 1.31 0.71-1.85 ng/dL Afshan Loi Reviewed date:07/06/2024 01:24:48 PM Interpretation: Performing Lab:[facility], [address] [place] [address] Notes/Report: Afshan Monsivais See Note Specimen held untested for 24 hours; Call to request Chemistry testing. [facility] Loi Reviewed date:10/04/2024 06:20:14 PM Interpretation: Performing Lab:[facility], [address] [place] [address] Notes/Report: Afshan Monsivais See Note Specimen held untested for 24 hours; Call to request Chemistry testing. Urine Culture Reviewed date:10/05/2024 09:02:59 AM Interpretation: Performing Lab:[facility], [address] [place] [address] Notes/Report: Urine Culture No growth. XR chest 2V Reviewed date:10/19/2024 10:26:20 AM Interpretation: Performing Lab: Notes/Report: [address] [address] XRay Report Signed Patient: Selene Barry MR#: [id number] 3611 : 1955 Acct:[id number] Age/Sex: 69 / F ADM Date: 10/17/24 Loc: HO.XRAY Attending Dr: Aaron Rob MD Ordering Physician: Aaron Rob MD Date of Service: 10/17/24 Procedure(s): XR chest 2V Accession Number(s): [id number] cc: Aaron Rob MD CLINICAL HISTORY: MILD [...] in OV> 10/18/242154 DD/ 54 TD/TT: 10/18/242154 Truck Supervisor: [address] [address] XRay Report Signed Patient: Selene Barry MR#: [id number] 3611 : 1955 Acct:[id number] Age/Sex: 69 / F ADM Date: 10/17/24 Loc: HO.XRAY Attending Dr: Aaron Rob MD Ordering Physician: Aaron Rob MD Date of Service: 10/17/24 Procedure(s): XR tigist st 2V Accession Number(s): [id number] cc: Aaron Rob MD CLINICAL HISTORY: RI LD INTERMITTENT ASTHMA --- Additional Notes or [...] in OV> 10/18/242154 DD/ 54 TD/TT: 10/18/242154 Truck Supervisor: Complete Blood Count Auto Di ff Reviewed date:11/02/2024 12:26:56 PM Interpretation: Performing Lab:[facility], [address] [place] [address] Notes/Report: White Blood Count 7.9 4.8-10.8 X10*3/uL [...] te Reviewed date:11/02/2024 05:05:39 PM Interpretation: Performing Lab:[facility], [address] [place] [address] Notes/Report: Erythrocyte Sedimentation Rate 12 0-20 MM/HR Patients with polycythemia and many hemoglobin abnormalities may have depressed sed rates whereas patients with anemia may have elevated sed rates. Comprehensive Met. Panel Reviewed date:11/08/2024 08:01:35 AM Interpretation:BIRNDA 11/06 Performing Lab:[address] [address] Notes/Report: Sodium 134 135-145 mmol/L Potassium 4.3 [...] Protein Reviewed date:11/02/2024 01:00:24 PM Interpretation: Performing Lab:[address] [address] Notes/Report: C Reactive Protein 1.94 < or = 0.50 mg/dL Glucose, Whole Blood Reviewed date:01/17/2025 12:33:33 PM Interpretation: Performing Lab:[address] [address] Notes/Report: Glucose, Whole Blood 147 60-115 mg/dL METER # : [id number] FL guidance in OR Reviewed date:01/17/2025 12:32:59 PM Interpretation: Performing Lab: Notes/Report: [address] [address] Fluoroscopy Report Signed Patient: Selene Barry MR#: [id number] 3611 : 1955 Acct:[id number] Age/Sex: 69 / F ADM Date: 01/17/25 Loc: HO.SSS Attending Dr: Rodney Beltran MD, PhD Ordering Physician: Rodney Beltran MD, PhD Date of Service: 01/17/25 Procedure(s): FL guidance in OR Accession Number(s): [id number] cc: Aaron Rob MD; Rodney Beltran MD, [...] 01/17/25 0902 DD/ 0736 TD/TT: 01/17/25 0844 Truck Supervisor: [place] [address] Fluoroscopy Report Signed Patient: Selene Barry MR#: [id number] 3611 : 1955 Acct:[id number] Age/Sex: 69 / F ADM Date: 01/17/25 Loc: HO.SSS Attending Dr: Jessica Beltran MD, PhD Ordering Physician: Rodney Beltran MD, PhD Date of Service: 01/17/25 Procedure(s): FL guidance in OR Accession Number(s): [id number] cc: Aaron Rob MD; Rodney Beltran MD, [...] OV> 01/17/25901 DD/ 0736 TD/TT: 01/17/25 0844 Truck Supervisor: Afshan Monsivais Reviewed date:04/16/2025 12:25:44 PM Interpretation: Performing Lab:[facility], [address] [place] [address] Notes/Report: Afshan Monsivais See Note Specimen held [...] 0 07/26/2024 03:26:47 PM >info faxed with [facility] spine Center office note Referral Priority Routine [...] Speciality Internal M edicine Referred Provider Angelo Mcgarry Referred Provider [...] Omeprazole 20 MG Take 1 capsule by [facility] once daily for 90 Active [...] capsule Orally Onc e a day Active Januvia 50 MG 1 [...] W/U Status Risk Notes Problem Hypercoagulable state (78604329) Secondary hypercoagulable state (289.82) Active confirmed Problem Spinal stenosis (68339318) Spinal stenosis (724.00) Active confirmed Problem 93996638 Age-related osteoporosis without current pathological fracture (M81.0) Active confirmed Problem 678914070 Thyroid nodule (E04.1) Active confirm ed Problem 03302257 Lymphocytosis (D72.820) Active confirmed Problem 097520154485048 FPC (curre nt) use of systemic steroids (Z79.52) Active confirmed Problem 79312185 Lumbar disc dise ase (M51.9) Active confirmed Problem 97948547 Essential hypert ension (I10) Active confirmed Problem 753937442 Mild intermitten t asthma without complication (J45.20) Active confirmed Problem 122266542 Chronic systolic congestive heart failure (I50.22) Active confirmed Problem 04176891 Hyperthyroidism (E05.90) Active confirmed Problem 169262954 Rheumatoid arthr itis involving multiple sites, 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) Active confirmed Problem 252788869 Graves disease (E05.00) Active confirmed Problem 535520156 History of coron marie artery bypass graft (Z95.1) Active confirmed Problem 7240412 Thyromegaly (E04.9) Active confirmed Problem 183116055 Non-rheumatic mi tral regurgitation (I34.0) Active confirmed Problem 971574773 Thyroid cancer (C73) Active confirmed Problem 986280551 Vaginal bleeding (N93.9) Active confirmed Problem 70366202 Sciatica of righ t side (M54.31) Active confirmed Problem 82846346 Hypercholesterol emia (E78.00) Active confirmed Problem 1601244326406 Coronary artery disease of [place] artery of [place] heart with stable angina pectoris (I25.118) Active confirmed Problem 548292361 Atrophy of vagin a (N95.2) Active confirmed Problem History of hysterectomy (094917332) History of hysterectomy (Z90.710) Active confirmed Problem 706493230 Vaginal prolapse (N81.10) Active confirmed Problem Type II diabetes mellitus without complication (130712484) Type 2 diabetes mellitus treated without insulin (E11.9) Active confirmed Problem 3943600 Prediabetes (R73.09) Inactive confirmed Vital Signs Blood pressure diastolic 80 mm Hg 04/23/2025 Height 63.5 in 04/23/2025 Blood pressure systolic 144 mm Hg 04/23/2025 Weight 167 lbs 04/23/2025 BMI 29.12 kg/m2 04/23/2025 Encounters Encounter Location Date Provider Diagnosis Aaron Rob MD [address] [place] [id number] 06/04/2024 Aaron Rob Prediabetes R73.09 a nd Hypercholesterolemia E78.00 Aaron Rob MD [address] [place] [id number] 10/04/2024 Aaron Rob Essential hypertensi on I10 ; Prediabetes R73.09 ; Lymphocytosis D72.820 ; Chronic systolic congestive heart failure I50.22 ; Hyperthyroidism E05.90 and Hypercholesterolemia E78.00 Aaron Rob MD [address] [place] [id number] 04/16/2025 Aaron Rob Type 2 diabetes santhosh itus treated without insulin E11.9 ; Encounter for administration of vaccine Z23 and Hypercholesterolemia E78.00 Aaron Rob MD [address] [place] [id number] 04/23/2025 Aaron Rob History of hysterect ravinder Z90.710 ; Vaginal bleeding N93.9 ; Essential hypertension I10 and 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 Aaron Rob MD [address] [place] [id number] 06/11/2024 Aaron Rob Vaginal prolapse N81 .10 ; Essential hypertension I10 and Rheumatoid arthritis involving multiple sites, unspecified rheumatoid factor presence M06.9 Aaron Rob MD [address] [place] [id number] 06/21/2024 Aaron Rob Mild intermittent as thma without complication J45.20 Aaron Rob MD [address] [place] [id number] 06/29/2024 Aaron Rob Acute URI J06.9 Aaron Rob MD [address] [place] [id number] 07/06/2024 Aaron Rob Mild intermittent as thma without complication J45.20 ; Hyperthyroidism E05.90 and Pneumonitis, interstitial J84.89 Aaron Rob MD [address] [place] [id number] 10/11/2024 Aaron Rob Atrophy of vagina N9 5.2 ; Vaginal prolapse N81.10 ; Hematuria R31.9 ; Essential hypertension I10 ; Prediabetes R73.09 ; Mild intermittent asthma without complication J45.20 ; Chronic systolic congestive heart failure I50.22 ; Graves disease E05.00 and Hypercholesterolemia E78.00 Aaron Rob MD [address] [place] [id number] 11/06/2024 Aaron Rob Essential hypertensi on I10 ; Rheumatoid arthritis involving multiple sites, unspecified rheumatoid factor presence M06.9 and Type 2 diabetes mellitus treated without insulin E11.9 Aaron Rob MD [address] [place] [id number] 11/13/2024 Aaron Rob Type 2 diabetes santhosh itus treated without insulin E11.9 Aaron Rob MD [address] [place] [id number] 11/29/2024 Aaron Rob Type 2 diabetes santhosh itus treated without insulin E11.9 and Headache, unspecified R51.9 Aaron Rob MD [address] [place] [id number] 12/14/2024 Aaron Rob Type 2 diabetes santhosh itus treated without insulin E11.9 and Rectal bleeding K62.5 Aaron Rob MD [address] [place] [id number] 01/14/2025 Aaron Rob Type 2 diabetes santhosh itus treated without insulin E11.9 ; Lumbar disc disease M51.9 and Essential hypertension I10 Aaron Rob MD [address] [place] [address] [id number] 01/25/2025 Aaron Rob Type 2 diabetes santhosh itus treated without insulin E11.9 and Lumbar disc disease M51.9 Aaron Rob MD [address] [place] [address] [id number] 11/29/2024 Aaron Rob MD [address] [place] [address] [id number] 12/03/2024 Aaron Rob MD [address] [place] [address] [id number] 12/03/2024 Aaron Rob MD [address] [place] [address] [id number] 12/04/2024 Aaron Rob MD [address] [place] [id number] 12/14/2024 Aaron Rob MD [address] [place] [address] [id number] 12/17/2024 Aaron Rob MD [address] [place] [id number] 01/17/2025 Aaron Rob Assessments Encounter Date Diagnosis (ICD Code) Assessment Notes Treatment Notes Treatment Clinical Notes Section Notes 06/04/2024 Prediabetes (ICD-10 - R73.09) 06/04/2024 Hypercholesterolemia (ICD-10 - E78.00) 10/04/2024 Essential hypertensi on (ICD-10 - I10) 04/16/2025 Type 2 diabetes mellitus treated without insulin (ICD-10 - E11.9) 04/16/2025 Encounter for administration of vaccine (ICD-10 - Z23) 04/23/2025 History of hysterect ravinder (ICD-10 - Z90.710) need notes from dr wolfe at [facility] 04/23/2025 Vaginal bleeding (ICD-10 - N93.9) has a hysterectomy and is doing well 06/11/2024 Vaginal prolapse (ICD-10 - N81.10) is trying to decide if surgery or pessary. will try pessary, 06/21/2024 Mild intermittent asthma without complication (ICD-10 - J45.20) 06/29/2024 Acute URI (ICD-10 - J06.9) THE XRAY ORDER WAS FAXED TO [facility] PATIENT REG. 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 she has no evidence of temporal arteritis on exam 06/11/2024 Rheumatoid arthritis involving multiple sites, unspecified [...] Name:Aaron Atkinson ier, 10/08/2025 07:45:00 AM, [address] [place] [address], [address], [phone], Provider Name:Aaron Atkinson ier, 10/15/2025 09:30:00 AM, [address] [place] [address], [address], [phone], Insurance Providers Payer Name Payer Address Payer Phone Subscriber Number Group Number Insured Name Patient Relationship to Insured Coverage Start Date Coverage End Date [employer] [address] [place] [address] [id number] Selene Valdovinos Self - patient is the insured Medical (General) History Medical History History ICD Code colonoscopy - 03/2008 hyperp lastic polyp due 03/[address] Mcgarry; Colonoscopy done 07/14/[address] Mcgarry - repeat 10 years [employer]PLE [employer]ACHINE [employer] appt 06/04/13 at [facility] hematuria w/u 2017 08/21/2019 Total Thyroidectomy Pulmonary nodule R91.1 nodule evaluated and no need for further eval 2018 Prediabetes R73.09 Surgical History Surgery Date(Month/Year) L3-4, L4-5 Decompression 03/2014 Total Thyroidectomy 07/2019
[2025-04-26 04:39] LABS: HBS Num1 0.71 mIU/mL (0-7.99); HBc Num1 0.06 S/CO (0.00-0.79); HBsAGNum1 0.32 S/CO (0.00-0.99); Hepatitis B Surface Antigen Negative (Negative); ~HepC Num1 0.08 S/CO (0.00-0.79); ~Hepatitis B Surface Antibody NONREACTIVE (Nonreactive); ~Hepatitis C Antibody Nonreactive (Nonreactive)
[2025-04-28 02:44] LABS: TS Negative Control Passed; TS Panel A 0; TS Panel B 0; TS Positive Control Passed; TSpotTB Negative (Negative)
== END 2025-04-25 10:40 | disposition home or self-care (01) ==
LOC: HO.10HDL 10:39
PROVIDERS: Visit Provider Student in an Organized Health Care Education/Training Program
DX: Z11.1 Encounter for screening for respiratory tuberculosis (principal); Z79.899 Other long term (current) drug therapy
CPT/HCPCS: 36415; 80053; 85025; 85652; 86140; 86481; 86704; 86706; 86803; 87340

== ENCOUNTER 2025-04-26 10:21 | Outpatient (AMB) | payer MEDICARE, SELFPAY ==
--- OUTSIDE RECORDS SUMMARY | 2024-12-03 05:21 | XMS_ITS ---
Author Organization Aaron Rob MD Address [address] [place] [phone] Care Team Providers Care Pipe Line Repairer Name Role Phone Aaron Rob Primary Care Provider REASON FOR VISIT bool in her stool Encounters Encounter Location Date Provider Diagnosis Aaron Rob MD [address] [place] [address] [place] [phone] 12/03/2024 Aaron Rob Plan Of Treatment Next Appt Details Provider Name:Aaron deleon, 10/08/2025 07:45:00 AM, [address] [place] [address], [address], [phone], Provider Name:Aaron deleon, 10/15/2025 09:30:00 AM, [address] [place] [address], [address], [phone], Progress Notes * BARRY, SeleneDOB: [birth year] (69 yo F)Acc No.[id number]:12/03/2024 Patient: Selene EASTON :1955 A ge:69 Y S ex:Female Address:[address] [place] [phone] * true * Date: Generated for Julius pittman/Fito/eTbeckiesmitting on: 11:43 AM EDT
--- OUTSIDE RECORDS SUMMARY | 2024-12-04 09:18 | XMS_ITS ---
Author Organization Aaron Rob MD Address [address] [place] [phone] Care Team Providers Care Technician Automatic Name Role Phone Aaron Rob Primary Care Provider REASON FOR VISIT ER Encounters Encounter Location Date Provider Diagnosis Aaron oRb MD [address] [facility] [address] [place] [phone] 12/04/2024 Aaron Rob Plan Of Treatment Next Appt Details Provider Name:Aaron deleon, 10/08/2025 07:45:00 AM, [address] [place] [address], [address], [phone], Provider Name:Aaron deleon, 10/15/2025 09:30:00 AM, [address] [place] [address], [address], [phone], Progress Notes * Selene BARRYDOB: [birth year] (69 yo F)Acc No.[id number]:12/04/2024 Patient: Selene EASTON :1955 A ge:69 Y S ex:Female Address:[address] [place] [phone] * true * Date: Generated for Julius pittman/Fito/Riosmitting on: 11:42 AM EDT
--- OUTSIDE RECORDS SUMMARY | 2024-12-14 06:30 | XMS_ITS ---
Author Organization Aaron Rob MD Address [address] [place] [phone] Care Team Providers Care Event Management Consultant Name Role Phone Aaron Rob Primary Care [...] 20 MG Take 1 capsule by [facility] once daily for 90 [...] kg/m2 12/14/2024 weight is down 4 pounds [facility] e 11-29-24 Encounters Encounter Location Date Provider Diagnosis Aaron Rob MD [address] [place] [address] [address] [place], [place] [phone] 12/14/2024 Aaron Rob Type 2 diabetes mellitus [...] 4 Weeks, Reason: Provider Name:Aaron Atkinson ier, 10/08/2025 07:45:00 AM, 10 [facility], Suite [facility], [place], [place], [phone], Provider Name:Aaron Atkinson ier, 10/15/2025 09:30:00 AM, 10 [facility], [address], [place], [place], [phone], Progress Notes * BARRYSelene GALLEGOSDOB: [birth year] (69 yo F)Acc No.[id number]:12/14/2024 Progress Notes Patient: Selene EASTON Provider: Josh Rob MD :1955 A ge:69 Y S ex:Female Date:12/14/2024 Address:[address] [place] [phone] Subjective: * Chief Complaints: * 2 weekAccompanied [...] Rob MD Date: 0 12/14/2024 Generated for Julius pittman/Ftio/Jh on: 11:43 AM EDT History and Physical Notes * [...]
--- OUTSIDE RECORDS SUMMARY | 2024-12-14 06:57 | XMS_ITS ---
Author Organization Aaron Rob MD Address 10 [facility] [address] [place] [phone] Care Team Providers Care Principal Military Analyst Name Role Phone Aaron Rob Primary Care Provider [phone] REASON FOR VISIT SURGERY CLERANCE NOTE Encounters Encounter Location Date Provider Diagnosis Aaron Rob MD [address] [place] [address] [address] [place] [phone] 12/14/2024 Aaron Rob Plan Of Treatment Next Appt Details Provider Name:Aaron deleno, 10/08/2025 07:45:00 AM, [address] [place] [address], [address], [phone], Provider Name:Aaron deleon, 10/15/2025 09:30:00 AM, [address] [place] [address], [address], [phone], Progress Notes * BARRYSeleneDOB: [birth year] (69 yo F)Acc No.[id number]:12/14/2024 Patient: Selene EASTON :1955 A ge:69 Y S ex:Female Address:[address] [place] [phone] * true * Date: Generated for Julius pittman/Fito/Riosmitting on: 11:44 AM EDT
--- OUTSIDE RECORDS SUMMARY | 2024-12-17 05:30 | XMS_ITS ---
Author Organization Aaron Rob MD Address [address] [place] [phone] Care Team Providers Care Signal Maintenance Technician Name Role Phone Aaron Rob Primary Care Provider REASON FOR VISIT sick from Metformin Medications Medication SIG (Take, Route, Frequency, Duration) Notes Start Date End Date Status Januvia 50 MG 1 tab Orally daily for 30 days 12/17 Active Encounters Encounter Location Date Provider Diagnosis Aaron Rob MD 10 [facility] [address] [place] [phone] 12/17/2024 Aaron Rob Plan Of Treatment Medication Medication Name Sig Start Date Stop Date Notes Januvia 50 MG 1 tab Orally daily for 30 days 12/17/2024 Next Appt Details Provider Name:Aaron deleon, 10/08/2025 07:45:00 AM, [address], [address], [place], [phone], Provider Name:Aaron Atkinson adrienne, 10/15/2025 09:30:00 AM, [address] [facility] [address], [address], [place], [phone], Progress Notes * Selene BARRYDOB: [birth year] (69 yo F)Acc No.[id number]:12/17/2024 Patient: Selene EASTON :1955 A ge:69 Y S ex:Female Address:[address] [place] [phone] * Refills Start Januvia Tablet, 50 MG, Orally, 30 Tablet, 1 tab, daily, 30 days, Refills=5 * true * Date: Generated for Julius pittman/Fito/Riosmitting on: 11:43 AM EDT
--- OUTSIDE RECORDS SUMMARY | 2025-01-14 05:00 | XMS_ITS ---
Author Organization Aaron Rob MD Address [address] [place] [phone] Care Team Providers Care High School Music Instructor Name Role Phone Aaron Rob Primary Care [...] Date Provider Diagnosis Aaron Rob MD 10 [facility] [address] [place], [place] [phone] 01/14/2025 Aaron Rob Type 2 diabetes mellitus [...] 07:45:00 AM, [address], [address], [place], [place], [phone], Provider Name:Aaron Atkinson ier, 10/15/2025 09:30:00 AM, [address], [address], [place], [place], [phone], Progress Notes * Selene BARRYDOB: [birth year] (69 yo F)Acc No.[id number]:01/14/2025 Progress Notes Patient: Selene EASTON Provider: Josh Rob MD :1955 A ge:69 Y S ex:Female Date:01/14/2025 Address:[address] [place], [place] [phone] Subjective: * Chief Complaints: * 4 week [...] 0 01/14/2025 Generated for Julius pittman/Fito/Dionnaitting on: 11:42 AM EDT History and Physical Notes * [...]
--- OUTSIDE RECORDS SUMMARY | 2025-01-17 06:03 | XMS_ITS ---
Author Organization Aaron Rob MD Address [address] [place] [phone] Care Team Providers Care Chart Writer Name Role Phone Aaron Rob Primary Care Provider REASON FOR VISIT discharge Encounters Encounter Location Date Provider Diagnosis Aaron Rob MD 10 [facility] [address] [place] [phone] 01/17/2025 Aaron Rob Plan Of Treatment Next Appt Details Provider Name:Aaron deleon, 10/08/2025 07:45:00 AM, [address] [place] [address], [address], [phone], Provider Name:Aaron deleon, 10/15/2025 09:30:00 AM, [address] [place] [address], [address], [phone], Progress Notes * Selene BARRYDOB: [birth year] (69 yo F)Acc No.[id number]:01/17/2025 Patient: Selene EASTON :1955 A ge:69 Y S ex:Female Address:[address] [place] [phone] * true * Date: Generated for Julius pittman/Fito/Riosmitting on: 11:42 AM EDT
--- OUTSIDE RECORDS SUMMARY | 2025-01-25 05:15 | XMS_ITS ---
Author Organization Aaron Rob MD Address [address] [place] [phone] Care Team Providers Care Aurist Name Role Phone Aaron Rob Primary Care Provider [phone] Results Component Value Reference Range Notes Glucose, [...] Omeprazole 20 MG Take [address] [facility] once daily for 90 Active Calcium + [...] Rob MD [address] [place], [place] [phone] 01/25/2025 Aaron Rob Type 2 diabetes mellitus [...] 07:45:00 AM, [address], [address], [place], [place], [phone], Provider Name:Aaron Atkinson ier, 10/15/2025 09:30:00 AM, [address], [address], [place], [phone], Progress Notes * Selene BARRYDOB: [birth year] (69 yo F)Acc No.[id number]:01/25/2025 Progress Notes Patient: Selene EASTON Provider: Josh Rob MD :1955 A ge:69 Y S ex:Female Date:01/25/2025 Address:[address] [place] [address] YESSI Lockhart, [phone] Subjective: * Chief Complaints: * F /u [...] 01/25/2025 Generated for Julius pittman/Fito/eTransmitting on: 1 11:43 AM EDT History and Physical Notes [...]
--- OUTSIDE RECORDS SUMMARY | 2025-04-09 10:20 | XMS_ITS ---
Author Organization [facility] Address [address] [place] [address] Care Team Providers Care J2Ee Application Developer Name Role Phone Darron PIERCE, Aaron Primary Care Provider Angelo Caceres [phone] REASON FOR VISIT Patient presents today for a rectal bleeding Encounters Encounter Location Date Provider Diagnosis [facility] 10 [facility] [address] [place] [address] 04/09/2025 Angelo Lan Plan Of Treatment Next Appt Details Provider Name:Angelo Arambula Lan , 08/01/2025 10:20:00 AM, [address], [address], [place], [address], Progress Notes * BERT KRAFTDOB: [birth year] (70 yo F)Acc No.[id number]:04/09/2025 Progress Notes Patient: BERT EASTON Provider: Lavelle Lna MD :1955 A ge:70 Y S ex:Female Date:04/09/2025 Address:[address] [place], [place] [phone] Pcp:Aaron Rob MD Subjective: * Chief Complaints: [...] 1 Generated for Julius pittman/Fito/Dionnaitting on: 1 11:43 AM EDT
--- OUTSIDE RECORDS SUMMARY | 2025-04-16 03:30 | XMS_ITS ---
Author Organization Aaron Rob MD Address [address] [place] [phone] Care Team Providers Care Agent Contract Clerk Name Role Phone Aaron Rob Primary Care Provider Results Component Value Reference Range Notes Liver Panel Reviewed date:04/16/2025 03:56:30 PM Interpretation: Performing Lab:[facility], [address] [place] [phone] Notes/Report: Bilirubin Total 0.4 0.0-1.0 mg/dL Bilirubin Direct 0.2 0.0-0.5 mg/dL Aspartate Amino Transferase 31 5-31 U/L Alanine Aminotransferase 12 0-31 U/L Total Protein 6.9 6.5-8.0 g/dL Albumin Level 3.8 3.5-5.0 g/dL Alkaline Phosphatase 125 39-117 U/L Glucose Fasting Reviewed date:04/16/2025 03:57:54 PM Interpretation: Performing Lab:[facility], [address] [place] [phone] Notes/Report: Glucose Fasting 118 60-99 mg/dL A fasting glucose from 100-125 mg/dl is considered impaired (pre-diabetes). Lipid Panel with Reflex Reviewed date:04/16/2025 04:02:18 PM Interpretation: Performing Lab:[facility], [address] [place] [phone] Notes/Report: Triglycerides 224 <150 mg/dL Desirable Triglyceride: [...] A1c Reviewed date:04/16/2025 12:25:34 PM Interpretation: Performing Lab:[facility], [address] [place] [phone] Notes/Report: Hemoglobin A1c % 5.6 <6.0 % [...] average glucose, using the formula of the L1E-Uoxjsdk Average Glucose study (ADAG), Diabetes Care, Vol.31,#8, 2007 REASON FOR VISIT FASTING LIPIDS Immunizations Vaccine Route Administration Date Status Comme nts Influenza High Dose IM Intramuscular 04/16/2025 Administer ed Encounters Encounter Location Date Provider Diagnosis Aaron Rob MD [address] [place] [address] [place] [phone] 04/16/2025 Aaron Rob Type 2 diabetes santhosh [...] Provider Name:Aaron Atkinson ieaddison, 10/08/2025 07:45:00 AM, [address] [place] [address], [place] [address], [place], [place], [phone], Provider Name:Aaron deleon, 10/15/2025 09:30:00 AM, [address] [place] [address], [place] [address], [place], [place], [phone], Progress Notes * Selene BARRYDOB: [birth year] (70 yo F)Acc No.[id number]:04/16/2025 Progress Note Patient: Selene EASTON Provider: Josh Rob MD :1955 A ge:70 Y S ex:Female Date:04/16/2025 Address:[address] [place], [place] [phone] Subjective: * Chief Complaints: * 1 . [...] * Procedure Codes: 3 6415 VENIPUNCT, ROUTINE*, 47803 FLU VACC PRSV FREE INC ANTIG, G0008 ADMN FLU VAC NO FEE SCHED SAME DAY * * The named appointment provid er may or may not be the originator of this progress note, and it is not deemed complete until electronically signed by the appointment provider. Sign off status: Pending * Provider: Josh Rob MD Date: 1 Generated for Julius pittman/Fito/Jh on: 11:44 AM EDT
--- OUTSIDE RECORDS SUMMARY | 2025-04-23 06:15 | XMS_ITS ---
Author Organization Aaron Rob MD Address [address] [place] [id number] Care Team Providers Care Med Dir Name Role Phone Aaron Rob Primary Care Provider [phone] Allergies No Known Allergies REASON FOR VISIT [...] Omeprazole 20 MG Take 1 capsule by [facility] once daily for 90 Active [...] Status Risk Notes Problem History of hysterectomy (199983900) History of hysterectomy (Z90.710) Active confirmed Vital Signs Blood pressure systolic 144 mm Hg 04/23/20 25 Blood pressure diastolic 80 mm Hg 025 Height 63.5 in 04/23/2025 Weight 167 lbs 04/23/2025 BMI 29.12 kg/m2 04/23/2025 Encounters Encounter Location Date Provider Diagnosis Aaron Rob MD [address] [facility] [address] [place], [place] [phone] 04/23/2025 Aaron Rob History of hysterectomy Z90.710 ; Vaginal bleeding N93.9 ; Essential hypertension I10 and 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 Assessments Encounter Date Diagnosis (ICD Code) Assessment Notes Treatment Notes Treatment Clinical Notes Section Notes 04/23/2025 History of hysterectomy (ICD-10 - Z90.710) need notes from dr wolfe at [facility] 04/23/2025 Vaginal bleeding (ICD-10 - N93.9) [...] hysterectomy need notes from dr wolfe at [facility] Vaginal bleeding has a hysterectomy a [...] 07:45:00 AM, [address], [address], [place], [place], [id number], Provider Name:Aaron Atkinson ier, 10/15/2025 09:30:00 AM, [address], [address], [place], [place], [phone], Progress Notes * Selene BARRYDOB: [birth year] (70 yo F)Acc No.[id number]:04/23/2025 Progress Notes Patient: Selene EASTON Provider: Josh Rob MD :1955 A ge:70 Y S ex:Female Date:04/23/2025 Address:[address] [place] [phone] Subjective: * Chief Complaints: * 2 month [...] MD Date: Generated for Julius pittman/Fito/Dionnaitting on: 11:43 AM EDT History and Physical [...]
--- NOTE | 2025-04-26 10:35 | A.OFFVIS_ITS ---
Vital Signs 04/26/25 10:45 Height 5 ft 1 in Weight 164 lb 10.965 oz BMI 31.1 BP 130/80 Blood Pressure Location Lt brachial Position Sitting Pulse 53 Pulse Source Pulse Oximeter Pulse Oximetry (%) 98 Oxygen Delivery Method Room Air Intake Visit Reasons: follow up Intake Note: Patient presents for RA follow up. Allergies No Known Allergies (No Known Allergies*) Allergy (Verified 04/26/25 10:43) Medication List - Last Reconciled 04/26/25 by Katelynn Garcia MD acetaminophen 650 mg PO Q6H PRN amlodipine 2.5 mg PO DAILY aspirin (Adult Low Dose Aspirin) 81 mg PO DAILY Held on 01/17/25. Instructions: Resume on 01/22/25. atorvastatin 80 mg PO BEDTIME calcium carbonate-vitamin D3 500 mg-5 mcg (200 unit) 1 tab PO DAILY furosemide 20 mg PO DAILY hydrocortisone acetate (Anusol-HC) 25 mg SD BID [Januvia ] levothyroxine (Synthroid) 100 mcg PO DAILY magnesium 250 mg PO DAILY metoprolol tartrate 50 mg PO BID multivitamin 1 tab PO DAILY omeprazole 20 mg PO DAILY psyllium husk (Metamucil) 1 tbsp PO DAILY HPI Comments Details: Patient is a 70-year-old female with hypertension, hyperlipidemia, hypothyroidism, polyarticular osteoarthritis, osteopenia, and seropositive rheumatoid arthritis here today for follow up Interval History: Patient last seen 11/05/2024 with me - Not on any DMARDs - Patient self discontinued at the end of August because it was not effective - Currently only on Tylenol arthritis - Is scheduled for back surgery this month and so would like to remain off the medication Today - Not on DMARDs - Had back surgery 09/2024, doing well since then - Had bladder prolapse and repair as well as hysterectomy about 1 month ago, so still recovering - Doing well overall - Gets intermittent pain but not unbearable - Also complains of right TMJ pain, which she uses a hot towel for Rheumatologic History: +RF++CCP dx 2016 Leflunomide 2016 Plaquenil 2017 Humira January 2019 - October 2019 Methotrexate October 2018-September 2020-self stopped Xeljanz October 2019- September 2020- self stopped Kevzara- September 2020- October 2021- active disease on exam Actemra- October 2021- January 2022-low WBC, PLTS and absolute neutraphils Enbrel September 2018-December 2018- restarted February 2022 (on Hold for right arthroplasty on Jun 22) restarted July 2022 - 05/2024 self d/c not effective Current Rheumatology Medication(s): FOR[facility]LY [facility] Medical History Rheumatoid arthritis Osteopenia Scoliosis Long-term use of immunosuppressant medication Personal history of COVID-19 Hx of thyroid cancer Non-rheumatic mitral regurgitation Essential hypertension Atherosclerotic cardiovascular disease assisted 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 Seropositive rheumatoid arthritis Coronary arteriosclerosis Surgical History Hx of thyroidectomy () Hx of total knee replacement (06/22/22) Hx of bilateral cataract extraction Hx of colonoscopy History of back surgery Status post coronary artery bypass graft Family History Mother HTN (hypertension) Social History Household Members: Spouse Housing: Apartment Are you a primary home care aide to a significant other at home: No Do you presently have visiting nurse or other home services: No 75 years or older and lives alone: No Alcohol intake: current Alcohol intake frequency: holidays/special occasions only Alcohol type: wine Comment: bathroom only, aware of trip hazards Patient Tobacco Use Status: Former Tobacco user Tobacco use type: Cigarette Female Reproductive History Menstrual Age of Menarche: 12 Review of Systems Narrative Review of Systems Constitutional: Denies fever, chills, weight loss ENT: Denies vision changes, eye pain or eye redness, dental caries, dry mouth GI: Denies nausea, vomiting, diarrhea, abdominal pain, change in BM Pulm: Denies SOB, DAVID, hemoptysis, wheezing Cards: Denies chest pain, palpitations Skin: Denies Raynaud's, rash, nail changes, photosensitivity, LABOR CONTRACT ANALYST: Denies headaches, weakness, paresthesias, recurrent falls MSK: as per HPI All other systems reviewed and are unremarkable except noted above Physical Exam Exam Exam: Vital signs reviewed Physical Examination CONSTITUITIONAL Patient alert and cooperative. Well appearing and in no apparent painful distress MSK Hands * Right Hand: Able to make a fist. No swelling or tenderness to palpation of the MCPs, PIPs or DIPs. No deformities noted. * Left Hand: Able to make a fist. No swelling or tenderness to palpation of the MCPs, PIPs or DIPs. No deformities noted. Wrists * Right Wrist: Full ROM to flexion and extension. No swelling or TTP * Left Wrist: Full ROM to flexion and extension. No swelling or TTP Elbows * Right Elbow: Full ROM. No swelling or TTP. No TTP of the medial epicondyle. No TTP of the lateral epicondyle * Left Elbow: Full ROM. No swelling or TTP. No TTP of the medial epicondyle. No TTP of the lateral epicondyle Shoulders * Right shoulder: Full ROM. No swelling noted. No TTP of the AC joint. No TTP of the subacromial bursa. No TTP of the posterior shoulder * Left shoulder: Full ROM. No swelling noted. No TTP of the AC joint. No TTP of the subacromial bursa. No TTP of the posterior shoulder Hips * Right hip: Good ROM. No pain elicited with hip flexion/internal rotation/external rotation * Left hip: Good ROM. No pain elicited with hip flexion/internal rotation/external rotation Hip bursa: No tenderness to palpation bilaterally Knees * Right knee: Full ROM. No swelling noted. No TTP of the knee joint line. No TTP of pes anserine bursa * Left knee: Full ROM. No swelling noted. No TTP of the knee joint line. No TTP of pes anserine bursa. Ankles * Right ankle: Good ankle dorsiflexion and plantar flexion. No swelling. No TTP of the ankle joint * Left ankle: Good ankle dorsiflexion and plantar flexion. No swelling. No TTP of the ankle joint Feet * Right foot: Negative squeeze test * Left foot: Negative squeeze test Tender points? * No tenderness to palpation of the bilateral trapezius, supraspinatus, anterior costochondral junctions, bilateral suboccipital muscle insertions SKIN No rashes Vital Signs: Last Vital Signs Pulse 53 04/26/25 10:45 BP 130/80 04/26/25 10:45 Pulse Ox 98 04/26/25 10:45 Oxygen Delivery Method Room Air 04/26/25 10:45 BMI result Body Mass Index 31.1 Results Reviewed Results Reviewed: Laboratory Tests 04/25/25 10:46 WBC 6.5 RBC 4.83 Hgb 13.2 Hct 41.7 Plt Count 319 ESR 10 Sodium 143 Potassium 4.2 D Chloride 106 Carbon Dioxide 29 BUN 14 Creatinine 0.65 AST 20 ALT 14 C-Reactive Protein 0.38 Laboratory Tests 05/03/24 04/25/25 10:03 10:46 Hep Bs Antigen Negative Hep Bs Antibody NONREACTIVE Hep B Core Total Ab Nonreactive Hepatitis C Ab (EIA) Nonreactive TB Test (T-Spot) Com Negative Pending Assessment & Plan Assessment & Plan (1) Seropositive rheumatoid arthritis: Comment: +RF++CCP dx 2016 Leflunomide 2016 Plaquenil 2017 Humira January 2019 - October 2019 Methotrexate October 2018-September 2020-self stopped Xeljanz October 2019- September 2020- self stopped Kevzara- September 2020- October 2021- active disease on exam Actemra- October 2021- January 2022-low WBC, PLTS and absolute neutraphils Enbrel September 2018-December 2018- restarted February 2022 (on Hold for right arthroplasty on Jun 22) restarted July 2022 effective Code(s): M05.9 - Rheumatoid arthritis with rheumatoid factor, unspecified Category: Medical Plan: #Seropositive RA Patient is a 70-year-old female with seropositive rheumatoid arthritis here today for follow up. No evidence of active synovitis on exam today off DMARDs. We will monitor off immunosuppression for now Plan - Monitor off immunosuppression - RTC 6 months - Labs before visit: CBC, CMP, ESR, CRP Plan I spent 20 minutes reviewing the record and labs, taking a history, examining the patient, discussing the treatment plan, ordering diagnostic work up and documenting in the medical record Orders: Orders Erythrocyte Sedimentation Rate 6 Months Z79.899 - Other termite control technician (current) drug therapy Comprehensive [place]. Panel Fast 6 Months Z79.899 - Other fpc (current) drug therapy C Reactive Protein 6 Months Z79.899 - Other termite control technician (current) drug therapy Complete Blood Count Auto Diff 6 Months Z79.899 - Other termite control technician (current) drug therapy Coding Level of Care Code Est Pt Level 3 (36247) Complex EM visit Add On G2211 Diagnoses Seropositive rheumatoid arthritis M05.9
[2025-04-26 10:45] VITALS: BP 130/80; PULSE 53; O2SAT 98; BMI 31.1
--- OUTSIDE RECORDS SUMMARY | 2025-04-26 11:43 | XMS_ITS | Patient Health Record ---
Author Organization [facility] Address [address] [place] [address] Care Team Providers Care Anchorer Name Role Phone Aaron Rob MD Primary Care Provider Angelo Caceres Unavailable [phone] Reason For Referral No Information Medications Medication [...] Problem Screening for malignant neoplasm of colon (398652068) Encounter for screening for malignant neoplasm of colon (Z12.11) Active confirmed Problem Gastroesophageal reflux disease without esophagitis (603807599) Gastroesophageal reflux disease without esophagitis (K21.9) Active confirmed Encounters Encounter Location Date Provider Diagnosis [facility] [address] [place] [address] 04/05/2025 Angelo Lan Plan Of Treatment Future Test Test Name Order Date COLONOSCOPY 05/30/2018 Next Appt Details Provider Name:Angelo Arambula Lan , 08/01/2025 10:20:00 AM, [address], [address], [place], [address], Insurance Providers Payer Name Payer Address Payer Phone Subscriber Number Group Number Insured Name Patient Relationship to Insured Coverage Start Date Coverage End Date MEDICARE OF [place] [address] [facility] [place] [address] [phone] [id number] BERT HOOD Self - patient is the insured Medical (General) History Medical History History ICD Code Denies PR,DM,CVA,Lung disease,renal dise ase HTN CAD-with 3-V CABG as below--had CHF Rheumatoid arthritis Hyperthyroidism GERD--EGD in 03/2008--small HH, no esoph agitis, no Rubio'a Screening colonoscopy in 2007--hyperplastic polyp, sigmoid diverticulosis, small internal hemorrhoids Surgical History Surgery Date(Month/Year) 3-V CABG 04/11/2018 Back surgery
--- OUTSIDE RECORDS SUMMARY | 2025-04-26 11:44 | XMS_ITS | Clinical Summary ---
Author Organization [employer] Address [address] [place] [address] [address] [place] [address] Care Team Providers Care Software Engineering Project Manager Name Role Phone Unavailable Primary Care Provider [...] Recently Relevant to Health Maintenance Insurance [facility] [place] MEDICAID [facility] ADULT
--- OUTSIDE RECORDS SUMMARY | 2025-04-26 11:44 | XMS_ITS | Encounter Summary ---
Author Organization [employer] Address [address] [place] [address] Care Team Providers Care Auto Damage Insurance Appraiser Name Role Phone Unavailable Primary Care Provider Unavailabl e Encounter Details Date Type Department Care Team (Late st Contact Info) Description 03/01/2023 Abstract [facility] [address] [place] [address] Sunny Martin, DMD [address] [place] [address] Social History Tobacco Use Types Packs/Day Years [...]
--- OUTSIDE RECORDS SUMMARY | 2025-04-26 11:45 | XMS_ITS | Patient Health Record ---
Author Organization Aaron Rob MD Address [address] [place] [address] [phone] Care Team Providers Care Maintenance Trainer Name Role Phone Aaron Rob Primary Care Provider Allergies No Known Allergies Results Component Value Reference Range Notes Hemoglobin A1c Reviewed date:11/06/2024 02:24:19 PM Interpretation: Performing Lab: Notes/Report: Hemoglobin A1c 7.6 Liver Panel Reviewed date:06/04/2024 12:45:25 PM Interpretation: Performing Lab:[facility], [address] [place] [phone] Notes/Report: Bilirubin Total 0.9 0.0-1.0 mg/dL Bilirubin Direct 0.3 0.0-0.5 mg/dL Aspartate Amino Transferase 30 5-31 U/L Alanine Aminotransferase 16 0-31 U/L Total Protein 7.3 6.5-8.0 g/dL Albumin Level 4.0 3.5-5.0 g/dL Alkaline Phosphatase 122 39-117 U/L Glucose Fasting Reviewed date:06/04/2024 12:49:55 PM Interpretation: Performing Lab:[address] [address] Notes/Report: Glucose Fasting 109 60-99 mg/dL A fasting glucose from 100-125 mg/dl is considered impaired (pre-diabetes). Lipid Panel with Reflex Reviewed date:06/04/2024 12:45:35 PM Interpretation: Performing Lab:[address] [address] Notes/Report: Triglycerides 114 <150 mg/dL Desirable Triglyceride: [...] A1c Reviewed date:06/04/2024 12:44:41 PM Interpretation: Performing Lab:[address] [address] Notes/Report: Hemoglobin A1c % 5.3 <6.0 % [...] average glucose, using the formula of the X5S-Zrnnwzx Average Glucose study (ADAG), Diabetes Care, Vol.31,#8, Jan. 2007 Complete Blood Count Auto Di ff Reviewed date:10/04/2024 06:46:14 PM Interpretation: Performing Lab:[facility], [address] [place] [phone] Notes/Report: White Blood Count 6.5 4.8-10.8 X10*3/uL [...] NRBC Abs Auto 0.000 0.0-0.012 X10*3/uL Comprehensive [place]. Panel Fa st Reviewed date:10/05/2024 09:05:22 AM Interpretation: Performing Lab:[facility], [address] [place] [phone] Notes/Report: Sodium 144 135-145 mmol/L Potassium 3.9 [...] Panel Reviewed date:10/04/2024 06:22:42 PM Interpretation: Performing Lab:[facility], [address] [place] [phone] Notes/Report: Triglycerides 101 <150 mg/dL Desirable Triglyceride: [...] T4 Reviewed date:10/04/2024 06:24:59 PM Interpretation: Performing Lab:[facility], [address] [place] [phone] Notes/Report: TSH reflex Free T4 0.34 0.32-4.0 uIU/mL Microalbumin, Random Reviewed date:10/04/2024 06:28:23 PM Interpretation: Performing Lab:[address] [address] Notes/Report: Creatinine Urine 63.70 Microalbumin Urine 24.0 Microalbum/Creatinine Ratio Ur 37.6 <30 ug/mg cr Albumin/Creatinine Ratio Reference Ranges: Normal: < 30 ug/mg creatinine Microalbuminuria: 30 - 300 ug/mg creatinine Clinical Albuminuria: > 300 ug/mg creatinine Hemoglobin A1c Reviewed date:10/04/2024 06:25:17 PM Interpretation: Performing Lab:[address] [address] Notes/Report: Hemoglobin A1c % 5.8 <6.0 % [...] average glucose, using the formula of the V3M-Nxqtphc Average Glucose study (ADAG), Diabetes Care, Vol.31,#8, Jan. 2007 UA ClnCatch+Micro w/rflx Cul t Reviewed date:10/05/2024 09:05:43 AM Interpretation: Performing Lab:[address] [address] Notes/Report: Urine, Clean Catch Color Urine Yellow Appearance Urine Clear PH 6.5 5.0-9.0 Glucose Urine UA Negative Negative mg/dL Urine Blood Small (1+) Negative Specific [place] - Urine 1.015 1.005-1.025 Urine Protein Negative Neg-Trace mg/dL Urine Ketones Negative Negative mg/dL Nitrite Urine Negative Negative Leukocyte Esterase Urine Trace Negative RBC Urine 11-20 0-2 /HPF WBC Urine 6-10 0-5 /HPF Squamous Epithelial Cell Urine 6-10 0-2 /HPF Bacteria Urine 3+ None Seen Hyaline Casts Urine 0-2 0-2 /LPF Liver Panel Reviewed date:04/16/2025 03:56:30 PM Interpretation: Performing Lab:[facility], [address] [place] [phone] Notes/Report: Bilirubin Total 0.4 0.0-1.0 mg/dL Bilirubin Direct 0.2 0.0-0.5 mg/dL Aspartate Amino Transferase 31 5-31 U/L Alanine Aminotransferase 12 0-31 U/L Total Protein 6.9 6.5-8.0 g/dL Albumin Level 3.8 3.5-5.0 g/dL Alkaline Phosphatase 125 39-117 U/L Glucose Fasting Reviewed date:04/16/2025 03:57:54 PM Interpretation: Performing Lab:[facility], [address] [place] [phone] Notes/Report: Glucose Fasting 118 60-99 mg/dL A fasting glucose from 100-125 mg/dl is considered impaired (pre-diabetes). Lipid Panel with Reflex Reviewed date:04/16/2025 04:02:18 PM Interpretation: Performing Lab:[facility], [address] [place] [phone] Notes/Report: Triglycerides 224 <150 mg/dL Desirable Triglyceride: [...] A1c Reviewed date:04/16/2025 12:25:34 PM Interpretation: Performing Lab:[facility], [address] [place] [phone] Notes/Report: Hemoglobin A1c % 5.6 <6.0 % [...] average glucose, using the formula of the N9R-Pvzleuf Average Glucose study (ADAG), Diabetes Care, Vol.31,#8, 2007 TSH reflex Free T4 Reviewed date:07/06/2024 05:11:26 PM Interpretation: Performing Lab:[facility], [address] [place] [phone] Notes/Report: TSH reflex Free T4 0.16 0.32-4.0 [...] ff Reviewed date:05/03/2024 12:29:13 PM Interpretation: Performing Lab:[facility], [address] [place] [phone] Notes/Report: White Blood Count 6.5 4.8-10.8 X10*3/uL [...] te Reviewed date:05/03/2024 12:46:33 PM Interpretation: Performing Lab:[address] [phone] Notes/Report: Erythrocyte Sedimentation Rate 5 0-20 MM/HR Patients with polycythemia and many hemoglobin abnormalities may have depressed sed rates whereas patients with anemia may have elevated sed rates. Comprehensive Met. Panel Reviewed date:05/03/2024 12:46:22 PM Interpretation: Performing Lab:[address] [address] Notes/Report: Sodium 141 135-145 mmol/L Potassium 4.5 3.3-5.1 mmol/L Slight Hemolysis.Interpret result with caution. Chloride 108 96-108 mmol/L Carbon Dioxide 21 22-29 mmol/L Anion Gap 17 12-20 Blood Urea Nitrogen 15 9-16 mg/dL Creatinine 0.60 0.5-1.4 mg/dL Estimated Glomerular Filt Rate > 60 NOTE: For -[place] individuals, multiply the result by 1.210. Chronic [...] Protein Reviewed date:05/03/2024 12:28:49 PM Interpretation: Performing Lab:[address] [address] Notes/Report: C Reactive Protein 0.61 < or = 0.50 mg/dL Hepatitis A,B,C Profile Reviewed date:05/03/2024 12:28:29 PM Interpretation: Performing Lab:[address] [address] Notes/Report: Hepatitis A Antibody IgM Nonreactive Nonreactive [...] TB Reviewed date:05/06/2024 12:59:20 PM Interpretation: Performing Lab:[address] [address] Notes/Report: TSpotTB Negative Negative A negative test [...] Passed For additional information, please refer to http://[email or web address]/fa q/ANE995 (This link is being provided for informational/ educational purposes only.) THIS TEST WAS PERFORMED AT: [employer]/NULL [address] RACHELL OLIVAREZ MD,PHD CT lumbar spine wo con Reviewed date:07/23/2024 05:20:34 PM Interpretation: Performing Lab: Notes/Report: [address] [address] [address] Scan Report Signed Patient: Selene Brary MR#: [id number] 3611 : 1955 Acct:[id number] Age/Sex: 69 / F ADM Date: 05/11/24 Loc: HO.CT Attending Dr: Osmel MARADIAGA Ordering Physician: Osmel Mckoy Date of Service: 05/11/24 Procedure(s): CT lumbar spine wo IV con Accession Number(s): [id number] cc: Aaron Rob MD; Osmel Mckoy Report Number: [id number]: Total DLP = 681.00 mGy-cm EXAMINATION: CT [...] 07/23/24 0441 DD/ 1318 TD/TT: 05/11/24 1345 Bookstore Clerk: [place] [address] CT Scan Report Signed Patient: Selene Barry MR#: [id number] 3611 : 1955 Acct:[id number] Age/Sex: 69 / F ADM Date: 05/11/24 Loc: HO.CT Attending Dr: Osmel MARADIAGA Ordering Physician: Osmel Mckoy Date of Service: 05/11/24 Procedure(s): CT lum bar spine wo IV con Accession Number(s): [id number] cc: Aaron Rob MD; Osmel Mckoy Report Number: [id number]: Total DLP = 681.00 mGy-cm EXAMINATION: CT [...] of S1. 1. No evidence of ac inaja fracture or traumatic subluxation of the lumbar [...] 07/23/24 0441 DD/ 1318 TD/TT: 05/11/24 1345 Bookstore Clerk: KYAW Monsivais Reviewed date:06/04/2024 12:48:56 PM Interpretation: Performing Lab:[facility], [address] [place] [phone] Notes/Report: Afshan Monsivais See Note Specimen held untested for 24 hours; Call to request Chemistry testing. XR chest 2V Reviewed date:07/06/2024 12:50:13 PM Interpretation:WALECK 07/06/24 Performing Lab: Notes/Report: [address] [address] XRay Report Signed Patient: Selene Barry MR#: [id number] 3611 : 1955 Acct:[id number] Age/Sex: 69 / F ADM Date: 06/29/24 Loc: HO.XRAY Attending Dr: Aaron Rob MD Ordering Physician: Aaron Rob MD Date of Service: 06/29/24 Procedure(s): XR chest 2V Accession Number(s): [id number] cc: Aaron Rob MD CLINICAL HISTORY: Acute [...] 07/02/24 105 DD/ 54 TD/TT: 07/02/24 105 Bookstore Clerk: [place] [address] XRay Report Signed Patient: Selene Barry MR#: [id number] 3611 : 1955 Acct:[id number] Age/Sex: 69 / F ADM Date: 06/29/24 Loc: CARMEL Attending Dr: Aaron Rob MD Ordering Physician: Aaron Rob MD Date of Service: 06/29/24 Procedure(s): XR tigist st 2V Accession Number(s): [id number] cc: Aaron Rob MD CLINICAL HISTORY: Ac inaja URI Chest two views Comparison: None Findings: [...] 07/02/24 1055 DD/ 1055 TD/TT: 07/02/24 1055 Bookstore Clerk: Free T4 (Free Thyroxine) Reviewed date:07/06/2024 05:11:14 PM Interpretation: Performing Lab:[facility], [address] [place] [phone] Notes/Report: Free T4 (Free Thyroxine) 1.31 0.71-1.85 ng/dL Afshan Loi Reviewed date:07/06/2024 01:24:48 PM Interpretation: Performing Lab:[facility], [address] [place] [phone] Notes/Report: Afshan Monsivais See Note Specimen held untested for 24 hours; Call to request Chemistry testing. [facility] Loi Reviewed date:10/04/2024 06:20:14 PM Interpretation: Performing Lab:[facility], [address] [place] [phone] Notes/Report: Afshan Monsivais See Note Specimen held untested for 24 hours; Call to request Chemistry testing. Urine Culture Reviewed date:10/05/2024 09:02:59 AM Interpretation: Performing Lab:[facility], [address] [place] [phone] Notes/Report: Urine Culture No growth. XR chest 2V Reviewed date:10/19/2024 10:26:20 AM Interpretation: Performing Lab: Notes/Report: [address] [address] XRay Report Signed Patient: Selene Barry MR#: [id number] 3611 : 1955 Acct:[id number] Age/Sex: 69 / F ADM Date: 10/17/24 Loc: HO.XRAY Attending Dr: Aaron Rob MD Ordering Physician: Aaron Rob MD Date of Service: 10/17/24 Procedure(s): XR chest 2V Accession Number(s): [id number] cc: Aaron Rob MD CLINICAL HISTORY: MILD [...] in OV> 10/18/242154 DD/ 54 TD/TT: 10/18/242154 Bookstore Clerk: [address] [address] XRay Report Signed Patient: Selene Barry MR#: [id number] 3611 : 1955 Acct:[id number] Age/Sex: 69 / F ADM Date: 10/17/24 Loc: HO.XRAY Attending Dr: Aaron Rob MD Ordering Physician: Aaron Rob MD Date of Service: 10/17/24 Procedure(s): XR tigist st 2V Accession Number(s): [id number] cc: Aaron Rob MD CLINICAL HISTORY: LA LD INTERMITTENT ASTHMA --- Additional Notes or [...] in OV> 10/18/242154 DD/ 54 TD/TT: 10/18/242154 Bookstore Clerk: Complete Blood Count Auto Di ff Reviewed date:11/02/2024 12:26:56 PM Interpretation: Performing Lab:[facility], [address] [place] [phone] Notes/Report: White Blood Count 7.9 4.8-10.8 X10*3/uL [...] te Reviewed date:11/02/2024 05:05:39 PM Interpretation: Performing Lab:[facility], [address] [place] [address] Notes/Report: Erythrocyte Sedimentation Rate 12 0-20 MM/HR Patients with polycythemia and many hemoglobin abnormalities may have depressed sed rates whereas patients with anemia may have elevated sed rates. Comprehensive Met. Panel Reviewed date:11/08/2024 08:01:35 AM Interpretation:BRINDA 11/06 Performing Lab:[address] [address] Notes/Report: Sodium 134 135-145 mmol/L Potassium 4.3 [...] Protein Reviewed date:11/02/2024 01:00:24 PM Interpretation: Performing Lab:[address] [address] Notes/Report: C Reactive Protein 1.94 < or = 0.50 mg/dL Glucose, Whole Blood Reviewed date:01/17/2025 12:33:33 PM Interpretation: Performing Lab:[address] [address] Notes/Report: Glucose, Whole Blood 147 60-115 mg/dL METER # : [id number] FL guidance in OR Reviewed date:01/17/2025 12:32:59 PM Interpretation: Performing Lab: Notes/Report: [address] [address] Fluoroscopy Report Signed Patient: Selene Barry MR#: [id number] 3611 : 1955 Acct:[id number] Age/Sex: 69 / F ADM Date: 01/17/25 Loc: HO.SSS Attending Dr: Rodney Beltran MD, PhD Ordering Physician: Rodney Beltran MD, PhD Date of Service: 01/17/25 Procedure(s): FL guidance in OR Accession Number(s): [id number] cc: Aaron Rob MD; Rodney Beltran MD, [...] 01/17/25 0902 DD/ 0736 TD/TT: 01/17/25 0844 Bookstore Clerk: [place] [address] Fluoroscopy Report Signed Patient: Selene Barry MR#: [id number] 3611 : 1955 Acct:[id number] Age/Sex: 69 / F ADM Date: 01/17/25 Loc: HO.SSS Attending Dr: Jessica Beltran MD, PhD Ordering Physician: Rodney Beltran MD, PhD Date of Service: 01/17/25 Procedure(s): FL guidance in OR Accession Number(s): [id number] cc: Aaron Rob MD; Rodney Beltran MD, [...] OV> 01/17/25901 DD/ 0736 TD/TT: 01/17/25 0844 Bookstore Clerk: Afshan Monsivais Reviewed date:04/16/2025 12:25:44 PM Interpretation: Performing Lab:[facility], [address] [place] [phone] Notes/Report: Afshan Monsivais See Note Specimen held [...] 0 07/26/2024 03:26:47 PM >info fax[place] [facility] [place] [facility] [place] Referral [...] W/U Status Risk Notes Problem Hypercoagulable state (32233066) Secondary hypercoagulable state (289.82) Active confirmed Problem Spinal stenosis (10521735) Spinal stenosis (724.00) Active confirmed Problem 02704716 Age-related osteoporosis without current pathological fracture (M81.0) Active confirmed Problem 912760124 Thyroid nodule (E04.1) Active confirm ed Problem 06782335 Lymphocytosis (D72.820) Active confirmed Problem 859647977040092 [facility] (curre nt) use of systemic steroids (Z79.52) Active confirmed Problem 37505214 Lumbar disc dise ase (M51.9) Active confirmed Problem 40297902 Essential hypert ension (I10) Active confirmed Problem 361736650 Mild intermitten t asthma without complication (J45.20) Active confirmed Problem 673740753 Chronic systolic congestive heart failure (I50.22) Active confirmed Problem 69450560 Hyperthyroidism (E05.90) Active confirmed Problem 539164590 Rheumatoid arthr itis involving multiple sites, 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) Active confirmed Problem 494918413 Graves disease (E05.00) Active confirmed Problem 262225496 History of coron marie artery bypass graft (Z95.1) Active confirmed Problem 3437496 Thyromegaly (E04.9) Active confirmed Problem 284494005 Non-rheumatic mi tral regurgitation (I34.0) Active confirmed Problem 175157721 Thyroid cancer (C73) Active confirmed Problem 492775355 Vaginal bleeding (N93.9) Active confirmed Problem 67483734 Sciatica of righ t side (M54.31) Active confirmed Problem 03660788 Hypercholesterol emia (E78.00) Active confirmed Problem 9283611702478 Coronary artery disease of [place] artery of [place] heart with stable angina pectoris (I25.118) Active confirmed Problem 913123658 Atrophy of vagin a (N95.2) Active confirmed Problem History of hysterectomy (383154085) History of hysterectomy (Z90.710) Active confirmed Problem 449470993 Vaginal prolapse (N81.10) Active confirmed Problem Type II diabetes mellitus without complication (115788278) Type 2 diabetes mellitus treated without insulin (E11.9) Active confirmed Problem 6129455 Prediabetes (R73.09) Inactive confirmed Vital Signs Blood pressure diastolic 80 mm Hg 04/23/2025 Height 63.5 in 04/23/2025 Blood pressure systolic 144 mm Hg 04/23/2025 Weight 167 lbs 04/23/2025 BMI 29.12 kg/m2 04/23/2025 Encounters Encounter Location Date Provider Diagnosis Aaron Rob MD [address] [place] [id number] 06/04/2024 Aaron Rob Prediabetes R73.09 a nd Hypercholesterolemia E78.00 Aaron Rob MD [address] [place] [id number] 10/04/2024 Aaron Rob Essential hypertensi on I10 ; Prediabetes R73.09 ; Lymphocytosis D72.820 ; Chronic systolic congestive heart failure I50.22 ; Hyperthyroidism E05.90 and Hypercholesterolemia E78.00 Aaron Rob MD [address] [place] [id number] 04/16/2025 Aaron Rob Type 2 diabetes santhosh itus treated without insulin E11.9 ; Encounter for administration of vaccine Z23 and Hypercholesterolemia E78.00 Aaron Rob MD [address] [place] [id number] 06/11/2024 Aaron Rob Vaginal prolapse N81 .10 ; Essential hypertension I10 and Rheumatoid arthritis involving multiple sites, unspecified rheumatoid factor presence M06.9 Aaron Rob MD [address] [place] [id number] 06/21/2024 Aarno Rob Mild intermittent as thma without complication J45.20 Aaron Rob MD [address] [place] [id number] 06/29/2024 Aaron Rob Acute URI J06.9 Aaron Rob MD [address] [place] [id number] 07/06/2024 Aaron Rob Mild intermittent as thma without complication J45.20 ; Hyperthyroidism E05.90 and Pneumonitis, interstitial J84.89 Aaron Rob MD [address] [place] [id number] 10/11/2024 Aaron Rob Atrophy of vagina N9 5.2 ; Vaginal prolapse N81.10 ; Hematuria R31.9 ; Essential hypertension I10 ; Prediabetes R73.09 ; Mild intermittent asthma without complication J45.20 ; Chronic systolic congestive heart failure I50.22 ; Graves disease E05.00 and Hypercholesterolemia E78.00 Aaron Rob MD [address] [place] [id number] 11/06/2024 Aaron Rob Essential hypertensi on I10 ; Rheumatoid arthritis involving multiple sites, unspecified rheumatoid factor presence M06.9 and Type 2 diabetes mellitus treated without insulin E11.9 Aaron Rob MD [address] [place] [address] [id number] 11/13/2024 Aaron Rob Type 2 diabetes santhosh itus treated without insulin E11.9 Aaron Rob MD [address] [place] [id number] 11/29/2024 Aaron Rob Type 2 diabetes santhosh itus treated without insulin E11.9 and Headache, unspecified R51.9 Aaron Rob MD [address] [place] [id number] 12/14/2024 Aaron Rob Type 2 diabetes santhosh itus treated without insulin E11.9 and Rectal bleeding K62.5 Aaron Rob MD [address] [place] [address] [id number] 01/14/2025 Aaron Rob Type 2 diabetes santhosh itus treated without insulin E11.9 ; Lumbar disc disease M51.9 and Essential hypertension I10 Aaron Rob MD [address] [place] [id number] 01/25/2025 Aaron Rob Type 2 diabetes santhosh itus treated without insulin E11.9 and Lumbar disc disease M51.9 Aaron Rob MD [address] [place] [id number] 04/23/2025 Aaron Rob History of hysterect ravinder Z90.710 ; Vaginal bleeding N93.9 ; Essential hypertension I10 and 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 Aaron Rob MD [address] [place] [address] [id number] 11/29/2024 Aaron Rob MD [address] [place] [id number] 12/03/2024 Aaron Rob MD [address] [place] [address] [id number] 12/03/2024 Aaron Rob MD [address] [place] [id number] 12/04/2024 Aaron Rob MD [address] [place] [address] [id number] 12/14/2024 Aaron Rob MD [address] [place] [address] [id number] 12/17/2024 Aaron Rob MD [address] [place] [id number] 01/17/2025 Aaron Rob Assessments Encounter Date Diagnosis [...] J06.9) THE XRAY ORDER WAS FA[place] [facility] [place] [facility]. PATIENT AWARE, patient [...] treated without insulin (ICD-10 - E11.9) consult clinical trial educator, patient will continue current regiment 11/29/2024 [...] - E11.9) stable, will continue current regiment 04/23/2025 History of hysterect ravinder (ICD-10 - Z90.710) need notes from dr wolfe at [facility] 04/23/2025 Vaginal bleeding (ICD-10 - N93.9) has a hysterectomy and is doing well 10/04/2024 Prediabetes (ICD-10 - R73.09) 04/16/2025 Hypercholesterolemia [...] in incision but does not appear infected 04/23/2025 Essential hypertensi on (ICD-10 - I10) doing well on meds 10/04/2024 Lymphocytosis (ICD-1 0 - D72.820) 06/11/2024 Rheumatoid arthritis involving multiple sites, unspecified rheumatoid factor presence (ICD-10 - M06.9) doing better on embrel, will continue current regiment 10/11/2024 Essential hypertensi on (ICD-10 - I10) stable, will continue curent regiment 01/14/2025 Essential hypertensi on (ICD-10 - I10) runing high today but didn't take her meds yet. 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 she has no evidence of temporal arteritis on exam 10/04/2024 Chronic systolic congestive heart failure (ICD-10 [...] Provider Name:Aaron Atkinson ier, 10/08/2025 07:45:00 AM, [address] [place] [address], [address], [phone], Provider Name:Aaron Atkinson ier, 10/15/2025 09:30:00 AM, [address] [place] [address], [address], [phone], Insurance Providers Payer Name Payer Address Payer Phone Subscriber Number Group Number Insured Name Patient Relationship to Insured Coverage Start Date Coverage End Date [employer] [address] [place] [address] [id number] Selene Valdovinos Self - patient is the insured Medical (General) History Medical History History ICD Code colonoscopy - 03/2008 hyperp lastic polyp due 03/[address] Mcgarry; Colonoscopy done 07/14/[address] Mcgarry - repeat 10 years [employer] appt 06/04/13 [place] [facility] [place]uria w/u 2017 08/21/2019 Total Thyroidectomy Pulmonary nodule R91.1 nodule evaluated and no need for further eval 2018 Prediabetes R73.09 Surgical History Surgery Date(Month/Year) L3-4, L4-5 Decompression 03/2014 Total Thyroidectomy 07/2019
== END 2025-04-26 11:11 | disposition home or self-care (01) ==
LOC: HO.RHES 10:22
PROVIDERS: PCP Internal Medicine; Visit Provider Student in an Organized Health Care Education/Training Program
DX: M05.9 Rheumatoid arthritis with rheumatoid factor, unspecified (principal)
CPT/HCPCS: 99213; G2211

== ENCOUNTER → 2025-04-26 10:21 | Outpatient (BNVA) | payer MEDICARE, SELFPAY | PROVIDERS: PCP Internal Medicine; Visit Provider Student in an Organized Health Care Education/Training Program | DX: M05.9 Rheumatoid arthritis with rheumatoid factor, unspecified (principal); I10 Essential (primary) hypertension; Z87.891 Personal history of nicotine dependence; E03.9 Hypothyroidism, unspecified; Z79.82 Long term (current) use of aspirin | CPT/HCPCS: 99212 ==

== ENCOUNTER 2025-05-10 10:31 | Emergency (ER) | payer MEDICARE, SELFPAY ==
--- NOTE | ~2025-05-10 | CT_ITS ---
EXAMINATION: CT ABDOMEN AND PELVIS WITH CONTRAST CLINICAL INFORMATION: lower abdominal pain, hysterectomy in March 2025 COMPARISON: July 09, 2016 TECHNIQUE: Multidetector volumetric images were obtained from the superior aspect of the liver through the pubic symphysis following administration 85 mL of Omnipaque 350 intravenous contrast. Sagittal and coronal reformatted images were obtained on the technologist's workstation. Oral contrast: No This CT examination was performed using dose optimization techniques as appropriate, variously including the following: *Automated exposure control *Adjustment of mA and/or kV according to patient size (this includes techniques or standardized protocols for targeted exams where dose is matched to indication/reason for exam; i.e. extremities or head) *Use of iterative reconstruction technique FINDINGS: LUNG BASES: The visualized lung bases are unremarkable. LIVER, GALLBLADDER, AND BILIARY TREE: The liver is normal in size, shape, and attenuation. No focal hepatic lesion or biliary ductal dilatation is present. The gallbladder is unremarkable with no evidence of radiopaque gallstones, gallbladder wall thickening, or obvious pericholecystic inflammatory changes. PANCREAS: Again seen is a punctate calcification in the tail. SPLEEN: Unremarkable. ADRENAL GLANDS: Unremarkable. KIDNEYS AND URETERS: The kidneys are normal in size, shape, and attenuation. No hydronephrosis, hydroureter, or calculi seen. No perinephric stranding. BLADDER: The bladder is mostly decompressed and thick-walled. GASTROINTESTINAL TRACT: Innumerable pseudodiverticula are present in the descending and sigmoid colon. There is mild prominence of the vascularity along the sigmoid colon and mild increased density in the mesentery. ABDOMINAL WALL: No significant hernia is appreciated. LYMPH NODES: Normal. VASCULAR: Unremarkable. PELVIC VISCERA: There are changes related to recent hysterectomy. There is fat stranding and ill-defined soft tissue density at the cuff of the vagina. There is a bilobed fluid collection with thin peripheral enhancement measuring 4.5 x 1.8 x 1.8 cm (CC by transverse by AP) extending up from that region. There is a second loculated fluid collection along the posterior right and superior margin of the bladder that measures 2.9 x 1.8 x 1.9 cm (AP by CC by transverse). This likely represents a cyst related to the right ovary. OSSEOUS STRUCTURES: Moderate to severe degenerative changes are present in the lumbar spine. There is chronic left L4 pars intra-articular's defect. There is moderate levoscoliosis. There is severe right hip osteoarthritis with mild lateral subluxation of the left femoral head. There are serpentine bands of sclerosis involving the left femoral head, somewhat sparing the posterior femoral head. There is central groundglass and minimal cystic change. There is subtle subchondral flattening and the superficial tibial bone. This is new since the prior. CT/CT abdomen pelvis w IV con IMPRESSION: Postoperative changes are identified related to recent hysterectomy. There is heterogeneous soft tissue density in the postoperative bed measuring 4.5 x 1.8 x 1.8 bilobed loculation that could represent hematoma, abscess, or seroma. There is a second 2.9 x 1.8 x 1.9 cm cystic region along the posterior superior right bladder margin is probably a right ovarian cyst. However, this could also represent a loculation with the same differential: hematoma, abscess, seroma. Diverticulosis is noted in the descending and sigmoid colon. There is mild prominence of vascularity and subtle fat stranding along the sigmoid colon. This is likely secondary to the changes related to recent hysterectomy, but a mild infectious colitis is not ruled out. 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 The left hip was unremarkable in 2017. Lumbar spine demonstrates moderate levoscoliosis, severe degenerative change, and chronic left pars defect involving L4. Bladder appears thick walled. This could be reactive related to recent surgery, but infection/cystitis is not ruled out. Fleischner guidelines were followed. Electronically signed by: Jorge Carr MD 05/10/2025 02:21 PM [facility]
--- NOTE | 2025-05-10 10:48 | ED.GENADULT ---
HPI - General Adult General Chief complaint: Abdominal Pain Stated complaint: rectal bleeding Time Seen by Provider: 05/10/25 11:39 Related Data Home Medications ?Medication ?Instructions ?Recorded ?Confirmed omeprazole 20 mg capsule,delayed 20 mg PO DAILY 10/20/20 04/26/25 release aspirin 81 mg tablet,delayed 81 mg PO DAILY 11/10/22 04/26/25 release (Adult Low Dose Aspirin) Held on 01/17/25. Instructions: Resume on 01/22/25. acetaminophen 325 mg tablet 650 mg PO Q6H PRN Pain, Mild (Pain 11/02/23 04/26/25 Scale 1-3) atorvastatin 80 mg tablet 80 mg PO BEDTIME 11/02/23 04/26/25 levothyroxine 100 mcg tablet 100 mcg PO DAILY 05/04/24 04/26/25 (Synthroid) multivitamin 1 tab PO DAILY 07/30/24 04/26/25 magnesium 250 mg tablet 250 mg PO DAILY 10/31/24 04/26/25 Januvia 01/17/25 04/26/25 Previous Rx's ?Medication ?Instructions ?Recorded calcium 500 mg (as 1 tab PO DAILY #30 tabs 11/02/23 carbonate)-vitamin D3 5 mcg (200 unit) tablet metoprolol tartrate 50 mg tablet 50 mg PO BID #180 tabs 07/25/24 amlodipine 2.5 mg tablet 2.5 mg PO DAILY #90 tabs 10/09/24 hydrocortisone acetate 25 mg 25 mg DE BID #12 ea 12/03/24 rectal suppository (Anusol-HC) psyllium husk 3.4 gram/5.4 gram 1 tbsp PO DAILY #660 grams 12/03/24 oral powder (Metamucil) furosemide 20 mg tablet 20 mg PO DAILY #90 tabs 02/18/25 Allergies Allergy/AdvReac Type Severity Reaction Status Date / Time No Known Allergies (No Known Allergy Verified 05/10/25 10:50 Allergies*) [facility] Past Medical History Medical History Rheumatoid arthritis Osteopenia Scoliosis Long-term use of immunosuppressant medication Personal history of COVID-19 Hx of thyroid cancer Non-rheumatic mitral regurgitation Essential hypertension Atherosclerotic cardiovascular disease [facility] 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 Seropositive rheumatoid arthritis Coronary arteriosclerosis Surgical History Hx of thyroidectomy (~2019) Hx of total knee replacement (06/22/22) Hx of bilateral cataract extraction Hx of colonoscopy History of back surgery Status post coronary artery bypass graft Family History Family History Mother HTN (hypertension) Social History Social History Household Members: Spouse Housing: Apartment Are you a primary health care specialist to a significant other at home: No Do you presently have visiting nurse or other home services: No Alcohol intake: current Alcohol intake frequency: holidays/special occasions only Alcohol type: wine Comment: bathroom only, aware of trip hazards Patient Tobacco Use Status: Former Tobacco user Tobacco use type: Cigarette Smoked in Last 30 Days: No Use of substances other than those prescribed or required for medical reasons: No Advance Directives: No Advance Directives Information Provided: No Do you have a plan to hurt others: No Plan Physical Exam ED Vital Signs: Vital Signs - 24 hr 05/10/25 10:49 05/10/25 12:03 Temperature 98 F Pulse Rate 72 66 Respiratory Rate 16 18 Blood Pressure 211/95 H 150/75 H Pulse Oximetry 99 97 Oxygen Delivery Method Room Air Room Air BMI result Body Mass Index 29.4 Course Course Course Narrative: This is a rapid medical exam performed by Елена Gleason NP: Additional HPI, ROS, PE not included below will be deferred to primary provider. Patient is a 70y/o F s/p hysterectomy on 04/01 presenting with complaint of rectal bleeding. Reports episode of diarrhea this morning followed by rectal bleeding. Prior to that has been using Miralax for constipation. Plan: labs Medical Decision Making Lab Data 05/10/25 11:02 05/10/25 11:01 Labs: Lab Results 05/10/25 05/10/25 Range/Units 11:01 11:02 WBC 9.6 (4.8-10.8) X10*3/uL RBC 4.75 (4.20-5.50) X10*6/uL Hgb 13.2 (12.0-16.0) g/dl Hct 39.4 (37.0-47.0) % MCV 82.9 (80.0-98.0) fL MCH 27.8 (27.0-33.0) pg MCHC 33.5 (31.0-35.0) g/dl RDW 13.0 (11.0-16.0) % Plt Count 270 (160-400) X10*3/uL MPV 10.0 (9.4-12.3) fL Immature Gran % (Auto) 0.3 (0.0-0.4) % Neut % (Auto) 69.3 (45-73) % Lymph % (Auto) 22.9 (20-40) % [place] % (Auto) 5.7 (2-11) % Eos % (Auto) 1.1 (0-4) % Baso % (Auto) 0.7 (0-2) % Lymph # (Auto) 2.2 (1.2-4.9) X10*3/uL [place] # (Auto) 0.6 (0.1-1.2) X10*3/uL Eos # (Auto) 0.1 (0.0-0.4) X10*3/uL Baso # (Auto) 0.1 (0.0-0.2) X10*3/uL Abs Immat Gran (auto) 0.03 (0.00-0.03) X10*3/uL Absolute Neuts (auto) 6.7 (2.0-8.3) x10*3/uL Absolute Nucleated RBC 0.000 (0.0-0.012) X10*3/uL Nucleated RBC % (auto) 0.0 (0.0-0.2) /100WBC PT 12.1 (11.2-13.5) SEC INR 1.0 (0.9-1.1) Sodium 142 (135-145) mmol/L Potassium 3.9 (3.3-5.1) mmol/L Chloride 109 H (96-108) mmol/L Carbon Dioxide 23 (22-29) mmol/L Anion Gap 14 (12-20) BUN 15 (9-16) mg/dL Creatinine 0.55 (0.5-1.4) mg/dL Estim Creat Clear Calc 95.1 Estimated GFR > 60 Random Glucose 117 H (60-115) mg/dL Calcium 8.9 (8.4-10.2) mg/dL Total Bilirubin 0.6 (0.0-1.0) mg/dL AST 23 (5-31) U/L ALT 9 (0-31) U/L Alkaline Phosphatase 123 H (39-117) U/L Total Protein 7.6 (6.5-8.0) g/dL Albumin 4.3 (3.5-5.0) g/dL Influenza Type A (PCR) NEGATIVE (Negative) Influenza Type B (PCR) NEGATIVE (Negative) RSV RNA Qual (PCR) NEGATIVE (Negative) SARS-CoV-2 RNA (RT-PCR) NEGATIVE (Negative) Discharge Plan Discharge Prescriptions: No Action metoprolol tartrate 50 mg tablet 50 mg PO BID Qty: 180 3RF amlodipine 2.5 mg tablet 2.5 mg PO DAILY Qty: 90 3RF furosemide 20 mg tablet 20 mg PO DAILY Qty: 90 3RF Metamucil 3.4 gram/5.4 gram powder 1 tbsp PO DAILY Qty: 660 0RF Rx Instructions: mix into at least 8 oz of water or juice before administering hydrocortisone acetate [Anusol-HC] 25 mg suppository 25 mg DE BID Qty: 12 0RF Januvia magnesium 250 mg Tablet 250 mg PO DAILY omeprazole 20 mg capsule,delayed release(DR/EC) 20 mg PO DAILY aspirin [Adult Low Dose Aspirin] 81 mg tablet,delayed release (DR/EC) 81 mg PO DAILY acetaminophen 325 mg tablet 650 mg PO Q6H PRN (Reason: Pain, Mild (Pain Scale 1-3)) atorvastatin 80 mg tablet 80 mg PO BEDTIME calcium carbonate-vitamin D3 500 mg-5 mcg (200 unit) tablet 1 tab PO DAILY Qty: 30 0RF levothyroxine [Synthroid] 100 mcg tablet 100 mcg PO DAILY multivitamin Tablet 1 tab PO DAILY Print Language: Upper Sorbian
[2025-05-10 10:49] VITALS: BP 211/95; PULSE 72; RESP 16; TEMP 36.6; O2SAT 99; BMI 29.4
[2025-05-10 11:10] LABS: MANUAL DIFF FLAG NO
[2025-05-10 11:12] LABS: Hematocrit 39.4 % (37.0-47.0); Hemoglobin 13.2 g/dl (12.0-16.0); Imm Gran Abs Auto 0.03 X10*3/uL (0.00-0.03); Imm Gran Pct Auto 0.3 % (0.0-0.4); Lymphocytes Absolute Auto 2.2 X10*3/uL (1.2-4.9); Mean Corpuscular HGB Conc 33.5 g/dl (31.0-35.0); Mean Corpuscular Hemoglobin 27.8 pg (27.0-33.0); Mean Corpuscular Volume 82.9 fL (80.0-98.0); NRBC Abs Auto 0.000 X10*3/uL (0.0-0.012); NRBC Pct Auto 0.0 /100WBC (0.0-0.2); Platelet Count 270 X10*3/uL (160-400); Red Blood Count 4.75 X10*6/uL (4.20-5.50); White Blood Count 9.6 X10*3/uL (4.8-10.8)
[2025-05-10 11:23] LABS: INTERNATIONAL NORM RATIO 1.0 (0.9-1.1); Prothrombin Time 12.1 SEC (11.2-13.5)
[2025-05-10 11:28] LABS: Alanine Aminotransferase 9 U/L (0-31); Albumin Level 4.3 g/dL (3.5-5.0); Alkaline Phosphatase 123 U/L (39-117); Anion Gap 14 (12-20); Aspartate Amino Transferase 23 U/L (5-31); Blood Urea Nitrogen 15 mg/dL (9-16); Calcium 8.9 mg/dL (8.4-10.2); Carbon Dioxide 23 mmol/L (22-29); Chloride 109 mmol/L (96-108); Creatinine Clr Calc Pharmacy 95.1; Estimated Glomerular Filt Rate > 60; Potassium 3.9 mmol/L (3.3-5.1); Sodium 142 mmol/L (135-145); Total Protein 7.6 g/dL (6.5-8.0)
--- NOTE | 2025-05-10 11:44 | ED.GENADULT ---
HPI - General Adult General Chief complaint: Abdominal Pain Stated complaint: rectal bleeding Time Seen by Provider: 05/10/25 11:39 Source: patient Mode of arrival: ambulatory Limitations: no limitations History of Present Illness ED Provider: HIREN Orantes HPI narrative: 70-year-old female with a history of rheumatoid arthritis, scoliosis, chronic immunosuppressant use, thyroid cancer (s/p thyroidectomy), non-rheumatic mitral regurgitation, hypertension, coronary atherosclerosis (s/p CABG ?3 about 6?7?years ago), and recent total abdominal hysterectomy (04/01, ~6?weeks ago) presents to the ED after noting bright red blood during a bowel movement this morning. The first bowel movement contained stool mixed with blood in the toilet; the subsequent 2?3 episodes were diarrhea consisting only of blood. She describes diffuse abdominal cramping, associated nausea and one episode of vomiting after taking her thyroid medication. She denies use of anticoagulants. She reports a similar episode of rectal bleeding a couple of months ago, attributed at that time to pelvic prolapse and flaring hemorrhoids. She has a history of hemorrhoids and chronic constipation for which she takes MiraLAX. Last colonoscopy was at age 62 and was reportedly normal. No family history of colorectal cancer. Related Data Home Medications ?Medication ?Instructions ?Recorded ?Confirmed omeprazole 20 mg capsule,delayed 20 mg PO DAILY 10/20/20 04/26/25 release aspirin 81 mg tablet,delayed 81 mg PO DAILY 11/10/22 04/26/25 release (Adult Low Dose Aspirin) Held on 01/17/25. Instructions: Resume on 01/22/25. acetaminophen 325 mg tablet 650 mg PO Q6H PRN Pain, Mild (Pain 11/02/23 04/26/25 Scale 1-3) atorvastatin 80 mg tablet 80 mg PO BEDTIME 11/02/23 04/26/25 levothyroxine 100 mcg tablet 100 mcg PO DAILY 05/04/24 04/26/25 (Synthroid) multivitamin 1 tab PO DAILY 07/30/24 04/26/25 magnesium 250 mg tablet 250 mg PO DAILY 10/31/24 04/26/25 Januvia 01/17/25 04/26/25 Previous Rx's ?Medication ?Instructions ?Recorded calcium 500 mg (as 1 tab PO DAILY #30 tabs 11/02/23 carbonate)-vitamin D3 5 mcg (200 unit) tablet metoprolol tartrate 50 mg tablet 50 mg PO BID #180 tabs 07/25/24 amlodipine 2.5 mg tablet 2.5 mg PO DAILY #90 tabs 10/09/24 hydrocortisone acetate 25 mg 25 mg AL BID #12 ea 12/03/24 rectal suppository (Anusol-HC) psyllium husk 3.4 gram/5.4 gram 1 tbsp PO DAILY #660 grams 12/03/24 oral powder (Metamucil) furosemide 20 mg tablet 20 mg PO DAILY #90 tabs 02/18/25 Allergies Allergy/AdvReac Type Severity Reaction Status Date / Time No Known Allergies (No Known Allergy Verified 05/10/25 10:50 Allergies*) Review of Systems Review of Systems: Positive: blood per rectum, diarrhea, diffuse abdominal pain/cramping, nausea, vomiting. All other systems not specifically discussed during the encounter. Yes all other systems are reviewed and are negative PMFSH Past Medical History Attestation statement: The following information was validated with the patient. Source: old records reviewed and nursing notes reviewed Medical History Rheumatoid arthritis Osteopenia Scoliosis Long-term use of immunosuppressant medication Personal history of COVID-19 Hx of thyroid cancer Non-rheumatic mitral regurgitation Essential hypertension Atherosclerotic cardiovascular disease [facility] 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 Seropositive rheumatoid arthritis Coronary arteriosclerosis Surgical History Hx of thyroidectomy (~2018) Hx of total knee replacement (06/22/22) Hx of bilateral cataract extraction Hx of colonoscopy History of back surgery Status post coronary artery bypass graft Family History Family History Mother HTN (hypertension) Social History Social History Household Members: Spouse Housing: Apartment Are you a primary primary care physician to a significant other at home: No Do you presently have visiting nurse or other home services: No Alcohol intake: current Alcohol intake frequency: holidays/special occasions only Alcohol type: wine Comment: bathroom only, aware of trip hazards Patient Tobacco Use Status: Former Tobacco user Tobacco use type: Cigarette Smoked in Last 30 Days: No Use of substances other than those prescribed or required for medical reasons: No Advance Directives: No Advance Directives Information Provided: No Do you have a plan to hurt others: No Plan Physical Exam ED Exam Exam: Appearance: Alert.? Oriented X3.? No acute distress.? Head: Normocephalic, atraumatic, no step-offs or deformities Eyes: Pupils equal, round and reactive to light.? ENT: Pharynx normal.? Neck: Normal inspection.? Neck supple.? CVS: Normal heart rate and rhythm.? Pulses normal.? Respiratory: No respiratory distress.? Breath sounds normal.? Abdomen: Soft and diffuse lower abdominal discomfort.? Skin: Skin warm and dry.? Normal skin color.? Normal skin turgor.? Rectal exam: Deferred Extremities: No lower extremity edema.? No calf ttp. 5/5 strength to bilateral upper and lower extremities Back: No midline tenderness, no C-spine tenderness, full range of motion, no CVA tenderness bilaterally Neuro: Oriented X 3.? No motor deficit.? No sensory deficit. CN 2-12 intact Vital Signs: Vital Signs - 24 hr 05/10/25 10:49 05/10/25 12:03 05/10/25 13:04 Temperature 98 F 97.7 F Pulse Rate 72 66 73 Respiratory Rate 16 18 14 Blood Pressure 211/95 H 150/75 H 143/73 H Pulse Oximetry 99 97 94 Oxygen Delivery Method Room Air Room Air Room Air BMI result Body Mass Index 29.4 vss Course Reevaluation(s) Reevaluation #1: Patient's CBC unremarkable. No signs of anemia. Chemistry no acute findings needing intervention. OBS, CT abdomen and pelvis pending Time: 11:50 Reevaluation #2: Flu, COVID, negative. CT abdomen pelvis still pending. Stool study pending. Time: 12:11 Reevaluation #3: Repeat CBC ordered. It shows a drop of hemoglobin by 1 point. I will reach out to Dr. Vences who performed patient's transvaginal hysterectomy and right salpingo-oophorectomy, bilateral sacrospinous ligament fixation, posterior repair, enterocele repair, advantage fit blue retropubic midurethral sling, cystoscopy Time: 14:51 Additional Reevaluation(s): Dr. Vences recommends treatment for IV ATBX. [facility] provider . Medications Administered Discontinued Medications Generic Name Dose Route Start Last Admin Trade Name Mare PRN Reason Stop Dose Admin Iohexol 100 ml 05/10/25 12:37 05/10/25 12:37 Iohexol 350 Mg/Ml 100 Ml Infus..Btl IV 05/10/25 12:38 80 ml ONCE ONE Administration Medical Decision Making Medical Decision Making [facility] Narrative: 70-year-old female presents with abdominal pain, lower GI bleeding ongoing since this morning. On exam diffuse lower abdominal tenderness on exam History and physical exam concerning for rectal bleeding/hematochezia with an unknown etiology however likely from hemorrhoids. Other differentials include anal fissure, diverticulosis, colorectal cancer, ischemic colitis, infectious colitis inflammatory bowel disease complications related to recent hysterectomy although unlikely. Plan will obtain CT abdomen pelvis CBC CMP stool studies. Patient deferring rectal exam however will sent guaiac Differential Diagnosis Differential Diagnoses: The differential diagnosis associated with the presentation includes (History and physical exam concerning for rectal bleeding/hematochezia with an unknown etiology however likely from hemorrhoids. Other differentials include anal fissure, diverticulosis, colorectal cancer, ischemic colitis, infectious colitis inflammatory bowel disease complications related to recen) Admission/Observation Consideration of admission/observation: Escalation of care including admission/observation considered Lab Data [facility] Lab Attestation statement: I reviewed the patient's lab results. 05/10/25 13:18 05/10/25 11:01 Labs: Lab Results 05/10/25 05/10/25 05/10/25 Range/Units 11:01 11:02 12:06 WBC 9.6 (4.8-10.8) X10*3/uL RBC 4.75 (4.20-5.50) X10*6/uL Hgb 13.2 (12.0-16.0) g/dl Hct 39.4 (37.0-47.0) % MCV 82.9 (80.0-98.0) fL MCH 27.8 (27.0-33.0) pg MCHC 33.5 (31.0-35.0) g/dl RDW 13.0 (11.0-16.0) % Plt Count 270 (160-400) X10*3/uL MPV 10.0 (9.4-12.3) fL Immature Gran % (Auto) 0.3 (0.0-0.4) % Neut % (Auto) 69.3 (45-73) % Lymph % (Auto) 22.9 (20-40) % [place] % (Auto) 5.7 (2-11) % Eos % (Auto) 1.1 (0-4) % Baso % (Auto) 0.7 (0-2) % Lymph # (Auto) 2.2 (1.2-4.9) X10*3/uL [place] # (Auto) 0.6 (0.1-1.2) X10*3/uL Eos # (Auto) 0.1 (0.0-0.4) X10*3/uL Baso # (Auto) 0.1 (0.0-0.2) X10*3/uL Abs Immat Gran (auto) 0.03 (0.00-0.03) X10*3/uL Absolute Neuts (auto) 6.7 (2.0-8.3) x10*3/uL Absolute Nucleated RBC 0.000 (0.0-0.012) X10*3/uL Nucleated RBC % (auto) 0.0 (0.0-0.2) /100WBC PT 12.1 (11.2-13.5) SEC INR 1.0 (0.9-1.1) Sodium 142 (135-145) mmol/L Potassium 3.9 (3.3-5.1) mmol/L Chloride 109 H (96-108) mmol/L Carbon Dioxide 23 (22-29) mmol/L Anion Gap 14 (12-20) BUN 15 (9-16) mg/dL Creatinine 0.55 (0.5-1.4) mg/dL Estim Creat Clear Calc 95.1 Estimated GFR > 60 Random Glucose 117 H (60-115) mg/dL Calcium 8.9 (8.4-10.2) mg/dL Total Bilirubin 0.6 (0.0-1.0) mg/dL AST 23 (5-31) U/L ALT 9 (0-31) U/L Alkaline Phosphatase 123 H (39-117) U/L Total Protein 7.6 (6.5-8.0) g/dL Albumin 4.3 (3.5-5.0) g/dL Stool Occult Blood POSITIVE (NEGATIVE) Influenza Type A (PCR) NEGATIVE (Negative) Influenza Type B (PCR) NEGATIVE (Negative) RSV RNA Qual (PCR) NEGATIVE (Negative) SARS-CoV-2 RNA (RT-PCR) NEGATIVE (Negative) 05/10/25 Range/Units 13:18 WBC 8.8 (4.8-10.8) X10*3/uL RBC 4.46 (4.20-5.50) X10*6/uL Hgb 12.3 (12.0-16.0) g/dl Hct 37.1 (37.0-47.0) % MCV 83.2 (80.0-98.0) fL MCH 27.6 (27.0-33.0) pg MCHC 33.2 (31.0-35.0) g/dl RDW 12.9 (11.0-16.0) % Plt Count 258 (160-400) X10*3/uL MPV 9.9 (9.4-12.3) fL Immature Gran % (Auto) 0.2 (0.0-0.4) % Neut % (Auto) 69.3 (45-73) % Lymph % (Auto) 23.1 (20-40) % [place] % (Auto) 5.8 (2-11) % Eos % (Auto) 0.9 (0-4) % Baso % (Auto) 0.7 (0-2) % Lymph # (Auto) 2.0 (1.2-4.9) X10*3/uL [place] # (Auto) 0.5 (0.1-1.2) X10*3/uL Eos # (Auto) 0.1 (0.0-0.4) X10*3/uL Baso # (Auto) 0.1 (0.0-0.2) X10*3/uL Abs Immat Gran (auto) 0.02 (0.00-0.03) X10*3/uL Absolute Neuts (auto) 6.1 (2.0-8.3) x10*3/uL Absolute Nucleated RBC 0.000 (0.0-0.012) X10*3/uL Nucleated RBC % (auto) 0.0 (0.0-0.2) /100WBC PT (11.2-13.5) SEC INR (0.9-1.1) Sodium (135-145) mmol/L Potassium (3.3-5.1) mmol/L Chloride (96-108) mmol/L Carbon Dioxide (22-29) mmol/L Anion Gap (12-20) BUN (9-16) mg/dL Creatinine (0.5-1.4) mg/dL Estim Creat Clear Calc Estimated GFR Random Glucose (60-115) mg/dL Calcium (8.4-10.2) mg/dL Total Bilirubin (0.0-1.0) mg/dL AST (5-31) U/L ALT (0-31) U/L Alkaline Phosphatase (39-117) U/L Total Protein (6.5-8.0) g/dL Albumin (3.5-5.0) g/dL Stool Occult Blood (NEGATIVE) Influenza Type A (PCR) (Negative) Influenza Type B (PCR) (Negative) RSV RNA Qual (PCR) (Negative) SARS-CoV-2 RNA (RT-PCR) (Negative) Independent Interpretation I performed an independent interpretation of an: CT Scan Radiology Impression Discussion of test interpretation with radiology: I have reviewed the radiologist's reading. External Record Review External record reviewed: Inpatient record, Office record, Outpatient record, Prior outpatient labs, Prior outpatient radiology, Primary care record and Outside ED record Critical Care Time Critical Care Time Critical Care Time: Yes Total Critical Care Time: 45 Attestation: I attest to this time spent taking care of the patient, obtaining history, physical, reviewing labs, imaging, speaking to my attending and or speaking to specialist. Or preforming a procedure Discharge Plan Discharge Clinical Impression: Rectal bleeding, Abdominal pain, Status post hysterectomy, Diverticulosis, Avascular necrosis of femur head, left Patient Disposition: Xfer Other Transfer Details: [facility] Instructions: Rectal Bleeding (ED), Abdominal Pain (ED) Prescriptions: No Action metoprolol tartrate 50 mg tablet 50 mg PO BID Qty: 180 3RF amlodipine 2.5 mg tablet 2.5 mg PO DAILY Qty: 90 3RF furosemide 20 mg tablet 20 mg PO DAILY Qty: 90 3RF Metamucil 3.4 gram/5.4 gram powder 1 tbsp PO DAILY Qty: 660 0RF Rx Instructions: mix into at least 8 oz of water or juice before administering hydrocortisone acetate [Anusol-HC] 25 mg suppository 25 mg AL BID Qty: 12 0RF Januvia magnesium 250 mg Tablet 250 mg PO DAILY omeprazole 20 mg capsule,delayed release(DR/EC) 20 mg PO DAILY aspirin [Adult Low Dose Aspirin] 81 mg tablet,delayed release (DR/EC) 81 mg PO DAILY acetaminophen 325 mg tablet 650 mg PO Q6H PRN (Reason: Pain, Mild (Pain Scale 1-3)) atorvastatin 80 mg tablet 80 mg PO BEDTIME calcium carbonate-vitamin D3 500 mg-5 mcg (200 unit) tablet 1 tab PO DAILY Qty: 30 0RF levothyroxine [Synthroid] 100 mcg tablet 100 mcg PO DAILY multivitamin Tablet 1 tab PO DAILY Print Language: Arabic
[2025-05-10 11:52] LABS: Resp Syncy Virus RNA Qual PCR NEGATIVE (Negative); SARS COV2 PCR INHOUSE NEGATIVE (Negative)
[2025-05-10 12:03] VITALS: BP 150/75; PULSE 66; RESP 18; O2SAT 97
--- NOTE | 2025-05-10 12:14 | PC.NURSE ---
pt is alert and oriented, skin appropriate for ethnicity, respirations even and unlabored, pt is reporting that this morning woke up fine then took her thyroid medication and started to feel nausea and vomited and shortly after had bloody diarrhea with abd pain, bowel sounds in all 4 quadrants, soft but tender on right upper and lower, pt does take asa pt had a small water with blood diarrhea while in the ED
[2025-05-10 12:31] LABS: OBS Int Ctl Valid YES; OBS1 POSITIVE (NEGATIVE)
[2025-05-10] MEDS: iohexoL 350 MG/ML 100 ML INFUS..BTL IV (12:37)
[2025-05-10 13:04] VITALS: BP 143/73; PULSE 73; RESP 14; TEMP 36.5; O2SAT 94
[2025-05-10 13:22] LABS: MANUAL DIFF FLAG NO
[2025-05-10 13:25] LABS: Hematocrit 37.1 % (37.0-47.0); Hemoglobin 12.3 g/dl (12.0-16.0); Imm Gran Abs Auto 0.02 X10*3/uL (0.00-0.03); Imm Gran Pct Auto 0.2 % (0.0-0.4); Lymphocytes Absolute Auto 2.0 X10*3/uL (1.2-4.9); Mean Corpuscular HGB Conc 33.2 g/dl (31.0-35.0); Mean Corpuscular Hemoglobin 27.6 pg (27.0-33.0); Mean Corpuscular Volume 83.2 fL (80.0-98.0); NRBC Abs Auto 0.000 X10*3/uL (0.0-0.012); NRBC Pct Auto 0.0 /100WBC (0.0-0.2); Platelet Count 258 X10*3/uL (160-400); Red Blood Count 4.46 X10*6/uL (4.20-5.50); White Blood Count 8.8 X10*3/uL (4.8-10.8)
--- NOTE | 2025-05-10 15:34 | PC.NURSE ---
Report given to Heidi in [facility] at [facility].
[2025-05-10 15:55] VITALS: BP 139/67; PULSE 76; RESP 16; O2SAT 97
[2025-05-10 16:20] VITALS: BP 139/67; PULSE 76; RESP 16; TEMP -17.7; TEMP 0; O2SAT 97
== END 2025-05-10 16:21 | disposition other institution (70) ==
PROVIDERS: Physician Assistant; Registered Nurse Emergency; Emergency Provider Emergency Medicine; PCP Internal Medicine
DX: K62.5 Hemorrhage of anus and rectum (principal); R10.9 Unspecified abdominal pain; K57.90 Diverticulosis of intestine, part unspecified, without perforation or abscess without bleeding; M87.9 Osteonecrosis, unspecified; Z90.710 Acquired absence of both cervix and uterus; Z03.818 Encounter for observation for suspected exposure to other biological agents ruled out
CPT/HCPCS: 36415; 74177; 80053; 82272; 83605; 85025; 85610; 87040; 87637; 96365; 99285; J2543; Q9967

== ENCOUNTER → 2025-05-10 11:46 | Outpatient (BNV) | payer MEDICARE, SELFPAY | PROVIDERS: Emergency Provider Emergency Medicine; PCP Internal Medicine; Visit Provider Radiology Diagnostic Radiology | DX: R10.30 Lower abdominal pain, unspecified (principal) | CPT/HCPCS: 74177 ==

== ENCOUNTER 2025-05-17 12:53 | Outpatient (AMB) | payer MEDICARE, SELFPAY ==
--- OUTSIDE RECORDS SUMMARY | 2024-12-04 08:18 | XMS_ITS ---
Author Organization Aaron Rob MD Address [address] [place] [phone] Care Team Providers Care Dry Cleaner Name Role Phone Aaron Rob Primary Care Provider [phone] REASON FOR VISIT ER Encounters Encounter Location Date Provider Diagnosis Aaron Rob MD [address] [facility] [address] [place] [phone] 12/04/2024 Aaron Rob Plan Of Treatment Next Appt Details Provider Name:Aaron deleon, 05/21/2025 10:15:00 AM, [address] [place] [address], [address], [phone], Provider Name:Aaron deleon, 10/08/2025 07:45:00 AM, [address] [place] [address], [address], [phone], Provider Name:Aaron Edi China deleon, 10/15/2025 09:30:00 AM, [address], [address], [place], [phone], Progress Notes * Selene BARRYDOB: [birth year] (69 yo F)Acc No.[id number]:12/04/2024 Patient: Selene EASTON :1955 A ge:69 Y S ex:Female Address:[address] [place] [address] [place] [id number] * true * Date: Generated for Julius pittman/Fito/Riosmitting on: 07/17/2024 01:15 PM EST
--- OUTSIDE RECORDS SUMMARY | 2024-12-14 05:30 | XMS_ITS ---
Author Organization Aaron Rob MD Address [address] [place] [phone] Care Team Providers Care Seasoning Mixer Name Role Phone Aaron Rob Primary Care Provider Allergies No Known Allergies Results Component Value Reference Range Notes Glucose, finger stick Reviewed date:12/14/2024 10:20:30 AM Interpretation: Performing Lab: Notes/Report: Value 189 REASON FOR VISIT 2 week, accompanied by daughter Medications Medication SIG (Take, Route, Frequency, Duration) Notes Start Date End Date Status Enbrel 50 MG/ML 1 mL Subcutaneous Not-Taking Metoprolol Succinate ER 50 MG 1 tablet Orally twice a day Active Ventolin HFA 108 (90 Base) MCG/ACT INHALE 1 PUFF BY MOUTH EVERY 4 HOURS NEEDED Active metFORMIN HCl 500 MG 1 tablet Orally twi ce a day 11/06/2024 Active Amoxicillin-Pot Clavulanate 875-125 MG 1 tablet Orally every 12 hrs for 7 days 08/25/2023 Not-Taking Estradiol 0.1 MG/GM as directed Vaginal Two times a Week 10/11/2023 Active Atorvastatin Calcium 80 MG Take 1 tablet by mouth once daily Active Albuterol Sulfate (2.5 MG/3ML) 0.083% 3 ml Inhalation Three times a day 06/15/2012 Active Lasix 20 MG 1 tablet Orally Once a day Active Synthroid 100 MCG 1 tablet in the morn ing on an empty stomach Orally Once a day Active Aspir-81 81 MG 1 tablet Orally Once a day Active Magnesium 250 MG 1 capsule Orally Onc e a day Active Omeprazole 20 MG Take 1 capsule by [facility] once daily for 90 Active Docusate Sodium 100 MG 1 capsule as need ed Orally Once a day Not-Taking Calcium + D 315-200 MG-UNIT 1 tablet Orally 500/125 once a day Active Vital Signs Blood pressure systolic 142 mm Hg 12/15/19 25 Blood pressure diastolic 80 mm Hg 025 Height 63.5 in 12/14/2024 Weight 175 lbs 12/14/2024 BMI 30.51 kg/m2 12/14/2024 weight is down 4 pounds [facility] e 11-29-24 Encounters Encounter Location Date Provider Diagnosis Aaron Rob MD [address] [place] [address] [address] [place], [place] [phone] 12/14/2024 Aaron Rob Type 2 diabetes mellitus treated without insulin E11.9 and Rectal bleeding K62.5 Assessments Encounter Date Diagnosis (ICD Code) Assessment Notes Treatment Notes Treatment Clinical Notes Section Notes 12/14/2024 Type 2 diabetes mellitus treated without insulin (ICD-10 - E11.9) needs referral to dr ramires. not tolerating meds well 12/14/2024 Rectal bleeding (ICD-10 - K62.5) referral to dr mcgarry Total time spent on the date of the encounter is 35 minutes including both face to face time spent and time spent reviewing documentation, pertinent lab data, studies and counseling the patient. 12/14/2024 Other At the present Plan Of Treatment Medication Medication Name Sig Start Date Stop Date Notes metFORMIN HCl 500 MG 1 tablet Orally twice a day Treatment Notes Assessment Notes Type 2 diabetes mellitus yuko ated without insulin needs referral to dr ramires. not tolerating meds well Rectal bleeding referral to dr mcgarry Total time spent on the date of the encounter is 35 minutes including both face to face time spent and time spent reviewing documentation, pertinent lab data, studies and counseling the patient. Other At the present Next Appt Details Follow Up: 4 Weeks, Reason: Provider Name:Aaron Atkinson ier, 05/21/2025 10:15:00 AM, [address] [place] [address], Suite [facility], [place], [place], [phone], Provider Name:Aaron Atkinson ier, 10/08/2025 07:45:00 AM, [address] [place] [address], [place] [address], [place], [place], [phone], Provider Name:Aaron Atkinson ier, 10/15/2025 09:30:00 AM, [address] [place] [address], [place] [address], [place], [place], [phone], Progress Notes * Gian BARRYwhitneyDOB: [birth year] (69 yo F)Acc No.[id number]:12/14/2024 Progress Notes Patient: Selene EASTON Provider: Josh Rob MD :1955 A ge:69 Y S ex:Female Date:12/14/2024 Address:[address] [place] [id number] Subjective: * Chief Complaints: * 2 weekAccompanied by daughter * HPI: S ymptom(s): patient is a 69 yo female here for 2 week follow up visit/ had bleeding in stool. went to er. had red blood in toilet and on toilet paper. had been straining at stool. * ROS: G eneral/Constitutional: Denies C hills. D enies F atigue. D enies F ever. D enies H eadache. E NT: Denies S ore throat. E ndocrine: Denies D ifficulty sleeping. A dmits D izziness.?Denies E xcessive sweating. A dmits E xcessive thirst. A dmits F requent urination. R espiratory: Denies C ough. D enies P ain with inspiration. D enies S hortness of breath at rest. G astrointestinal: Admits A bdominal pain. A dmits D ecreased appetite. A dmits D iarrhea. D enies N ausea. * Medical History: * Surgical History: * Hospitalization/Major Diagno stic Procedure: * Medications: T akingMagnesium 250 MG Capsule 1 capsule Orally Once a day Aspir-81 81 MG Tablet Delayed Release 1 tablet Orally Once a day Calcium + D 315-200 MG-UNIT Tablet 1 tablet Orally 500/125 once a day Omeprazole 20 MG Capsule Delayed Release Take 1 capsule by mouth once daily Synthroid 100 MCG Tablet 1 tablet in the morning on an empty stomach Orally Once a day Lasix 20 MG Tablet 1 tablet Orally Once a day Albuterol Sulfate (2.5 MG/3ML) 0.083% Nebulization Solution 3 ml Inhalation Three times a day Atorvastatin Calcium 80 MG Tablet Take 1 tablet by mouth once daily Estradiol 0.1 MG/GM Cream as directed Vaginal Two times a Week Ventolin HFA 108 (90 Base) MCG/ACT Aerosol Solution INHALE 1 PUFF BY MOUTH EVERY 4 HOURS NEEDED Metoprolol Succinate ER 50 MG Tablet Extended Release 24 Hour 1 tablet Orally twice a day metFORMIN HCl 500 MG Tablet 1 tablet Orally twice a day Taking Magnesium 250 MG Capsule 1 capsule Orally Once a day Taking Aspir-81 81 MG Tablet Delayed Release 1 tablet Orally Once a day Taking Calcium + D 315-200 MG-UNIT Tablet 1 tablet Orally 500/125 once a day Taking Omeprazole 20 MG Capsule Delayed Release Take 1 capsule by mouth once daily Taking Synthroid 100 MCG Tablet 1 tablet in the morning on an empty stomach Orally Once a day Taking Lasix 20 MG Tablet 1 tablet Orally Once a day Taking Albuterol Sulfate (2.5 MG/3ML) 0.083% Nebulization Solution 3 ml Inhalation Three times a day Taking Atorvastatin Calcium 80 MG Tablet Take 1 tablet by mouth once daily Taking Estradiol 0.1 MG/GM Cream as directed Vaginal Two times a Week Taking Ventolin HFA 108 (90 Base) MCG/ACT Aerosol Solution INHALE 1 PUFF BY MOUTH EVERY 4 HOURS NEEDED Taking Metoprolol Succinate ER 50 MG Tablet Extended Release 24 Hour 1 tablet Orally twice a day Taking metFORMIN HCl 500 MG Tablet 1 tablet Orally twice a day Not-Taking/PRNEnbrel 50 MG/ML Solution Prefilled Syringe 1 mL Subcutaneous Amoxicillin-Pot Clavulanate 875-125 MG Tablet 1 tablet Orally every 12 hrs Docusate Sodium 100 MG Capsule 1 capsule as needed Orally Once a day Medication List reviewed and reconciled with the patientNot-Taking/PRN Enbrel 50 MG/ML Solution Prefilled Syringe 1 mL Subcutaneous Not-Taking/PRN Amoxicillin-Pot Clavulanate 875-125 MG Tablet 1 tablet Orally every 12 hrs Not-Taking/PRN Docusate Sodium 100 MG Capsule 1 capsule as needed Orally Once a day Medication List reviewed and reconciled with the patient * Allergies: N .K.D.A.yes[Allergies Verified] Objective: * Vitals: H t: 63.5, Wt: 175, BMI:30.51, BP:142/80, Wt-k.38. weight is down 4 pounds since 11-29-24. * Examination: G eneral Examination: GENERAL APPEARANCE: a lert, well hydrated, in no distress, in no acute distress. HEAD: n ormocephalic. SKIN: g ood turgor. HEART: r egular rate and rhythm, no murmurs, rubs, gallops.? LUNGS: n o wheezes, rales, rhonchi, good air movement, clear to auscultation bilaterally. Assessment: * Assessment: 1. T ype 2 diabetes mellitus treated without insulin - E11.9 (Primary) 2 . R ectal bleeding - K62.5 Plan: * Treatment: Value Reference Range V alue 189 Notes: needs referral to dr ramires. not tolerating meds well ??2.?Rectal bleeding? Notes: referral to dr mcgarry Total time spent on the date of the encounter is 35 minutes including both face to face time spent and time spent reviewing documentation, pertinent lab data, studies and counseling the patient.?? 3.?Others? Notes: At the present ?? * Procedure Codes: 8 2947 ASSAY, GLUCOSE, BLOOD QUANT, Modifiers: QW * Follow Up: 4 Weeks * * Sign off status: Completed true * Provider: Josh Rob MD Date: 0 12/14/2024 Generated for Printi ng/Faesperanzag/eTransmitting on: 07/17/2024 01:15 PM EST History and Physical Notes * HPI (History of Present Illness) Category Sub-Category Detail Notes Category Not es Symptom(s) patient is a 69 yo female here for 2 week follow up visit/ had bleeding in stool. went to er. had red blood in toilet and on toilet paper. had been straining at stool Examination Category Sub-Category Detail Notes Category Not es General Examination GENERAL APPEARANCE: alert, w ell hydrated, in no distress, in no acute distress HEAD: normocephalic HEART: regular rate and rhy thm, no murmurs, rubs, gallops LUNGS: no wheezes, rales, r honchi, good air movement, clear to auscultation bilaterally SKIN: good turgor
--- OUTSIDE RECORDS SUMMARY | 2024-12-14 05:57 | XMS_ITS ---
Author Organization Aaron Rob MD Address 10 [facility] [address] [place] [phone] Care Team Providers Care Quality Project Manager Name Role Phone Aaron Rob Primary Care Provider [phone] REASON FOR VISIT SURGERY CLERANCE NOTE Encounters Encounter Location Date Provider Diagnosis Aaron Rob MD 10 [facility] [address] [place] [phone] 12/14/2024 Aaron Rob Plan Of Treatment Next Appt Details Provider Name:Aaron deleon, 05/21/2025 10:15:00 AM, [address] [place] [address], [address], [phone], Provider Name:Aaron deleon, 10/08/2025 07:45:00 AM, [address] [place] [address], [phone], Provider Name:Aaron Edi Avelinaluz marina adrienne, 10/15/2025 09:30:00 AM, [address], [address], [place], [place], [phone], Progress Notes * Selene BARRYDOB: [birth year] (69 yo F)Acc No.[id number]:12/14/2024 Patient: Selene EASTON :1955 A ge:69 Y S ex:Female Address:[address] [place] [phone] * true * Date: Generated for Julius pittman/Fito/Dionnaitting on: 07/17/2024 01:16 PM EST
--- OUTSIDE RECORDS SUMMARY | 2024-12-17 04:30 | XMS_ITS ---
Author Organization Aaron Rob MD Address [address] [facility] [address] [place] [phone] Care Team Providers Care Constitutional Law Professor Name Role Phone Aaron Rob Primary Care Provider [phone] REASON FOR VISIT sick from Metformin Medications Medication SIG (Take, Route, Frequency, Duration) Notes Start Date End Date Status Januvia 50 MG 1 tab Orally daily for 30 days 12/17 Active Encounters Encounter Location Date Provider Diagnosis Aaron Rob MD 10 [facility] [address] [place] [phone] 12/17/2024 Aaron Rob Plan Of Treatment Medication Medication Name Sig Start Date Stop Date Notes Januvia 50 MG 1 tab Orally daily for 30 days 12/17/2024 Next Appt Details Provider Name:Aaron deleon, 05/21/2025 10:15:00 AM, [address] [place] [address], [address] [place] [address], [phone], Provider Name:Aaron Atkinson adrienne, 10/08/2025 07:45:00 AM, 10 [facility], [address], [place], [phone], Provider Name:Aaron Atkinson allenr, 10/15/2025 09:30:00 AM, 10 [facility], [address], [place], [phone], Progress Notes * Selene BARRYDOB: [birth year] (69 yo F)Acc No.[id number]:12/17/2024 Patient: Nohemi Selene MARIE :1955 A ge:69 Y S ex:Female Address:[address] [place] [phone] * Refills Start Januvia Tablet, 50 MG, Orally, 30 Tablet, 1 tab, daily, 30 days, Refills=5 * true * Date: Generated for Julius pittman/Fito/eTransmitting on: 07/17/2024 01:15 PM EST
--- OUTSIDE RECORDS SUMMARY | 2025-01-14 04:00 | XMS_ITS ---
Author Organization Aaron Rob MD Address [address] [place] [phone] Care Team Providers Care Tool Profiling Machine Set Up Operator Name Role Phone Aaron Rob Primary Care Provider [phone] Allergies No Known Allergies Results Component Value [...] [facility] once daily for 90 Active Januvia 50 [...] Date Provider Diagnosis Aaron Rob MD 10 [facility] [address] [place], [place] [phone] 01/14/2025 Aaron Rob Type 2 diabetes mellitus [...] Next Appt Details Provider Name:Aaron Atkinson ier, 05/21/2025 10:15:00 AM, [address], [address], [place], [place], [phone], Provider Name:Aaron Atkinson ier, 10/08/2025 07:45:00 AM, [address], [address], [place], [place], [phone], Provider Name:Aaron Atkinson ier, 10/15/2025 09:30:00 AM, [address] [facility], Suite [facility], [place], [place], [phone], Progress Notes * BARRYSelene GALLEGOSDOB: [birth year] (69 yo F)Acc No.[id number]:01/14/2025 Progress Notes Patient: Selene EASTON Provider: Josh Rob MD :1955 A ge:69 Y S ex:Female Date:01/14/2025 Address:[address] [place] [phone] Subjective: * Chief Complaints: * 4 week [...] 01/14/2025 Generated for Julius pittman/Fito/eTbeckiesmitting on: 1 07/17/2024 01:15 PM EST History and Physical [...]
--- OUTSIDE RECORDS SUMMARY | 2025-01-17 05:03 | XMS_ITS ---
Author Organization Aaron Rob MD Address [address] [place] [phone] Care Team Providers Care Plant Attendant Or Assistant Operator Name Role Phone Aaron Rob Primary Care Provider REASON FOR VISIT discharge Encounters Encounter Location Date Provider Diagnosis Aaron Rob MD 10 [facility] [address] [place] [phone] 01/17/2025 Aaron Rob Plan Of Treatment Next Appt Details Provider Name:Aaron deleon, 05/21/2025 10:15:00 AM, [address] [place] [address], [address] [place] [address], [phone], Provider Name:Aaron deleon, 10/08/2025 07:45:00 AM, [address] [place] [address], [address] [place] [address], [phone], Provider Name:Aaron Edi China deleon, 10/15/2025 09:30:00 AM, [address], [address], [place], [phone], Progress Notes * Selene BARRYDOB: [birth year] (69 yo F)Acc No.[id number]:01/17/2025 Patient: Selene EASTON :1955 A ge:69 Y S ex:Female Address:[address] [place] [address] [place] [address] * true * Date: Generated for Julius pittman/Fito/Riosmitting on: 07/17/2024 01:14 PM EST
--- OUTSIDE RECORDS SUMMARY | 2025-01-25 04:15 | XMS_ITS ---
Author Organization Aaron Rob MD Address [address] [place] [phone] Care Team Providers Care Cryogenics Engineer Name Role Phone Aaron Rob Primary Care Provider [phone] Results Component Value Reference Range Notes Glucose, finger stick Reviewed date:01/25/2025 09:08:34 AM Interpretation: Performing Lab: Notes/Report: Value 124 REASON FOR VISIT f/u back surgery Medications Medication SIG (Take, Route, Frequency, Duration) Notes Start Date End Date Status Synthroid 100 MCG 1 tablet in the morn ing on an empty stomach Orally Once a day Active Aspir-81 81 MG 1 tablet Orally Once a day Active Magnesium 250 MG 1 capsule Orally Onc e a day Active Omeprazole 20 MG Take 1 capsule by [facility] once daily for 90 Active Calcium + D 315-200 MG-UNIT 1 tablet Orally 500/125 once a day Active Januvia 50 MG 1 tab Orally daily 12/17/2024 Active Metoprolol Succinate ER 50 MG 1 tablet Orally twice a day Active Docusate Sodium 100 MG 1 capsule as need ed Orally Once a day Not-Taking Enbrel 50 MG/ML 1 mL Subcutaneous Not-Taking Amoxicillin-Pot Clavulanate 875-125 MG 1 tablet Orally every 12 hrs for 7 days 08/25/2023 Not-Taking Estradiol 0.1 MG/GM as directed Vaginal Two times a Week 10/11/2023 Active Atorvastatin Calcium 80 MG Take 1 tablet by mouth once daily Active Ventolin HFA 108 (90 Base) MCG/ACT INHALE 1 PUFF BY MOUTH EVERY 4 HOURS NEEDED Active Albuterol Sulfate (2.5 MG/3ML) 0.083% 3 ml Inhalation Three times a day 06/15/2012 Active Lasix 20 MG 1 tablet Orally Once a day Active Vital Signs Blood pressure systolic 122 mm Hg 01/26/20 25 Blood pressure diastolic 66 mm Hg 025 Height 63.5 in 01/25/2025 Weight 168 lbs 01/25/2025 BMI 29.29 kg/m2 01/25/2025 Encounters Encounter Location Date Provider Diagnosis Aaron Rob MD [address] [place], [place] [phone] 01/25/2025 Aaron Rob Type 2 diabetes mellitus treated without insulin E11.9 and Lumbar disc disease M51.9 Assessments Encounter Date Diagnosis (ICD Code) Assessment Notes Treatment Notes Treatment Clinical Notes Section Notes 01/25/2025 Type 2 diabetes mellitus treated without insulin (ICD-10 - E11.9) stable, will continue current regiment 01/25/2025 Lumbar disc disease (ICD-10 - M51.9) doing great. small opening in incision but does not appear infected Plan Of Treatment Medication Medication Name Sig Start Date Stop Date Notes Januvia 50 MG 1 tab Orally daily 12/17/2024 Treatment Notes Assessment Notes Type 2 diabetes mellitus yuko ated without insulin stable, will continue current regiment Lumbar disc disease doing great. small o pening in incision but does not appear infected Next Appt Details Follow Up: 2 Months, Reason: dm Provider Name:Aaron deleon, 05/21/2025 10:15:00 AM, [address], [address], [place], [place], [phone], Provider Name:Aaron Atkinson ier, 10/08/2025 07:45:00 AM, [address], [address], [place], [place], [phone], Provider Name:Aaron Atkinson ier, 10/15/2025 09:30:00 AM, [address], [address], [place], [phone], Progress Notes * Selene BARRYDOB: [birth year] (69 yo F)Acc No.[id number]:01/25/2025 Progress Notes Patient: Selene EASTON Provider: Josh Rob MD :1955 A ge:69 Y S ex:Female Date:01/25/2025 Address:[address] [place], [place] [phone] Subjective: * Chief Complaints: * F /u back surgery * HPI: S ymptom(s): patient is a 69 yo female here for follow up following recent back surgery/ doing much better. feels that spine is getting better. just taking tylenol. / leg is getting better. had been swollen. * ROS: G eneral/Constitutional: Denies C hills. D enies F atigue. D enies F ever. D enies H eadache. E NT: Denies S ore throat. E ndocrine: Denies D ifficulty sleeping. D enies D izziness.?Admits E xcessive sweating. D enies E xcessive [...] List reviewed and reconciled with the patient Objective: * Vitals: H t: 63.5, Wt: 168, BMI:29.29, BP:122/66, Wt-k.2. * Examination: G eneral Examination: GENERAL APPEARANCE: a lert, well hydrated, in no distress.? SKIN: a bnormal scar from surgery well healed. at the top of scar is an opening about 2 mm with no redness or drainage. HEART: n o murmurs, rubs, gallops, regular rate and rhythm.? LUNGS: n o wheezes, rales, rhonchi, good air movement, clear to auscultation bilaterally. Assessment: * Assessment: 1. T ype 2 diabetes mellitus treated without insulin - E11.9 (Primary) 2 . L umbar disc disease - M51.9 Plan: * Treatment: Value Reference Range V alue 124 Notes: stable, will continue current regiment??2.?Lumbar disc disease? Notes: doing great. small opening in incision but does not appear infected?? * Procedure Codes: 8 2947 ASSAY, GLUCOSE, BLOOD QUANT, Modifiers: QW * Follow Up: 2 Months (Reason: dm) * * Sign off status: Completed true * Provider: Josh Rob MD Date: 0 01/25/2025 Generated for Julius pittman/Fito/Dionnaitting on: 07/17/2024 01:14 PM EST History and Physical Notes * HPI (History of Present Illness) Category Sub-Category Detail Notes Category Not es Symptom(s) patient is a 69 yo female here for follow up following recent back surgery/ doing much better. feels that spine is getting better. just taking tylenol. / leg is getting better. had been swollen Examination Category Sub-Category Detail Notes Category Not es General Examination GENERAL APPEARANCE: alert, w ell hydrated, in no distress HEART: no murmurs, rubs, ga llops, regular rate and rhythm LUNGS: no wheezes, rales, r honchi, good air movement, clear to auscultation bilaterally SKIN: abnormal scar from s urgery well healed. at the top of scar is an opening about 2 mm with no redness or drainage
--- OUTSIDE RECORDS SUMMARY | 2025-04-09 09:20 | XMS_ITS ---
Author Organization [facility] Address [address] [place] [address] Care Team Providers Care Specialty Plant Supervisor Name Role Phone Darron PIERCE, Aaron Primary Care Provider Angelo Caceres [phone] REASON FOR VISIT Patient presents today for a rectal bleeding Encounters Encounter Location Date Provider Diagnosis [facility] [address] [facility] [address] [place] [address] 04/09/2025 Angelo Lan Plan Of Treatment Next Appt Details Provider Name:Angelo Lan , 08/01/2025 10:20:00 AM, [address], [address], [place], [address], Progress Notes * BERT KRAFTDOB: [birth year] (70 yo F)Acc No.[id number]:04/09/2025 Progress Notes Patient: BERT EASTON Provider: Lavelle Lan MD :1955 A ge:70 Y S ex:Female Date:04/09/2025 Address:[address] [place], [place] [id number] Pcp:Aaron Rob MD Subjective: * Chief Complaints: * P atient presents today for a rectal bleeding * The named appointment provid er may or may not be the originator of this progress note, and it is not deemed complete until electronically signed by the appointment provider. Sign off status: Pending * Provider: Lavelle Lan MD Date: 1 Generated for Printi ng/Faesperanzag/eTransmitting on: 07/17/2024 01:14 PM EST
--- OUTSIDE RECORDS SUMMARY | 2025-04-16 02:30 | XMS_ITS ---
Author Organization Aaron Rob MD Address [address] [place] [phone] Care Team Providers Care Shell Molder Name Role Phone Aaron Rob Primary Care Provider [phone] Results Component Value Reference Range Notes Liver Panel Reviewed date:04/16/2025 03:56:30 PM Interpretation: Performing Lab:[facility], [address] [place] [phone] Notes/Report: Bilirubin Total 0.4 0.0-1.0 mg/dL Bilirubin Direct 0.2 0.0-0.5 mg/dL Aspartate Amino Transferase 31 5-31 U/L Alanine Aminotransferase 12 0-31 U/L Total Protein 6.9 6.5-8.0 g/dL Albumin Level 3.8 3.5-5.0 g/dL Alkaline Phosphatase 125 39-117 U/L Glucose Fasting Reviewed date:04/16/2025 03:57:54 PM Interpretation: Performing Lab:[facility], [address] [place] [phone] Notes/Report: Glucose Fasting 118 60-99 mg/dL A fasting glucose from 100-125 mg/dl is considered impaired (pre-diabetes). Lipid Panel with Reflex Reviewed date:04/16/2025 04:02:18 PM Interpretation: Performing Lab:[facility], [address] [place] [phone] Notes/Report: Triglycerides 224 <150 mg/dL Desirable Triglyceride: [...] A1c Reviewed date:04/16/2025 12:25:34 PM Interpretation: Performing Lab:[facility], [address] [place] [phone] Notes/Report: Hemoglobin A1c % 5.6 <6.0 % [...] average glucose, using the formula of the M8V-Vmhhbox Average Glucose study (ADAG), Diabetes Care, Vol.31,#8, 2007 REASON FOR VISIT FASTING LIPIDS Immunizations Vaccine Route Administration Date Status Comme nts Influenza High Dose IM Intramuscular 04/16/2025 Administer ed Encounters Encounter Location Date Provider Diagnosis Aaron Rob MD [address] [place] [address] [place] [phone] 04/16/2025 Aaron Rob Type 2 diabetes santhosh [...] Provider Name:Aaron Atkinson ier, 05/21/2025 10:15:00 AM, [address] [place] [address], [address] [place] [address], [phone], Provider Name:Aaron Atkinson ier, 10/08/2025 07:45:00 AM, [address] [place] [address], [address], [phone], Provider Name:Aaron Atkinson ier, 10/15/2025 09:30:00 AM, [address] [place] [address], [address], [phone], Progress Notes * BARRY, SeleneDOB: [birth year] (70 yo F)Acc No.[id number]:04/16/2025 Progress Note Patient: Selene EASTON Provider: Josh Rob MD :1955 A ge:70 Y S ex:Female Date:04/16/2025 Address:[address] [place] [phone] Subjective: * Chief Complaints: * 1 . [...] * Procedure Codes: 3 6415 VENIPUNCT, ROUTINE*, 64473 FLU VACC PRSV FREE INC ANTIG, G0008 ADMN FLU VAC NO FEE SCHED SAME DAY * * The named appointment provid er may or may not be the originator of this progress note, and it is not deemed complete until electronically signed by the appointment provider. Sign off status: Pending * Provider: Josh Rob MD Date: Generated for Julius pittman/Fito/Dionnaitting on: 07/17/2024 01:16 PM EST
--- OUTSIDE RECORDS SUMMARY | 2025-04-23 05:15 | XMS_ITS ---
Author Organization Aaron Rob MD Address [address] [place] [phone] Care Team Providers Care Dump Truck Driver Off Highway Name Role Phone Aaron Rob Primary Care [...] Status Risk Notes Problem History of hysterectomy (661650079) History of hysterectomy (Z90.710) Active confirmed Vital Signs Blood pressure systolic 144 mm Hg 04/23/20 25 Blood pressure diastolic 80 mm Hg 025 Height 63.5 in 04/23/2025 Weight 167 lbs 04/23/2025 BMI 29.12 kg/m2 04/23/2025 Encounters Encounter Location Date Provider Diagnosis Aaron Rob MD [address] [facility] [place], [place] [phone] 04/23/2025 Aaron Rob History of hysterectomy Z90.710 ; Vaginal bleeding N93.9 ; Essential hypertension I10 and 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 Assessments Encounter Date Diagnosis (ICD Code) Assessment Notes Treatment Notes Treatment Clinical Notes Section Notes 04/23/2025 History of hysterectomy (ICD-10 - Z90.710) need notes from dr wolfe at [facility] 04/23/2025 Vaginal bleeding (ICD-10 - N93.9) has [...] hysterectomy need notes from dr wolfe at [facility] Vaginal bleeding has a hysterectomy a nd [...] Name:Aaron Atkinson ier, 05/21/2025 10:15:00 AM, [address] [facility], [address], [place], [place], [phone], Provider Name:Aaron Atkinson ier, 10/08/2025 07:45:00 AM, [address] [facility], [address], [place], [place], [phone], Provider Name:Aaron Atkinson ier, 10/15/2025 09:30:00 AM, [address] [facility], Suite [facility], [place], [place], [phone], Progress Notes * Selene BARRYDOB: [birth year] (70 yo F)Acc No.[id number]:04/23/2025 Progress Notes Patient: Gian EASTONmen Provider: Josh Rob MD :1955 A ge:70 Y S ex:Female Date:04/23/2025 Address:[address] [place] [phone] Subjective: * Chief Complaints: * 2 month [...] true * Provider: Josh Rob MD Date: Generated for Julius pittman/Fito/Riosmitting on: 07/17/2024 01:16 PM EST History and Physical Notes * [...]
--- OUTSIDE RECORDS SUMMARY | 2025-05-12 13:29 | XMS_ITS ---
Author Organization Aaron Rob MD Address [address] [place] [phone] Care Team Providers Care Big Data Analytics Lead Name Role Phone Aaron Rob Primary Care Provider [phone] REASON FOR VISIT ER Encounters Encounter Location Date Provider Diagnosis Aaron Rob MD [address] [facility] [address] [place] [phone] 05/12/2025 Aaron Rbo Plan Of Treatment Next Appt Details Provider Name:Aaron deleon, 05/21/2025 10:15:00 AM, [address] [place] [address], [address], [phone], Provider Name:Aaron deleon, 10/08/2025 07:45:00 AM, [address] [place] [address], [address], [phone], Provider Name:Aaron deleon, 10/15/2025 09:30:00 AM, [address], [address], [place], [place], [phone], Progress Notes * Selene BARRYDOB: [birth year] (70 yo F)Acc No.[id number]:05/12/2025 Patient: Selene EASTON :1955 A ge:70 Y S ex:Female Address:[address] [place] [address] [place] [address] * * Date:
--- OUTSIDE RECORDS SUMMARY | 2025-05-13 10:00 | XMS_ITS | Continuity of Care Document ---
Author Organization [facility] ter Address [address] [place] [id number]- Care Team Providers Care Winder Operator Name Role Phone Aaron Rob MD Primary Care Physician [phone] [id number] Date(s): 05/10/25 - 05/13/[address] [address]- Discharge Disposition: A-D/C Home Attending Physician: Ole Cantu MD Admitting Physician: Cary Winkler MD Referring Physician: Cary Winkler MD Encounter Type: Disch IP Allergies, Adverse Reactions, Alerts Substance Criticality Severity Reaction Reaction Severity Status Coreg unknown Active Functional Status Functional Status Assessment Assessment Assessment Component Result Effecti ve Date Total Falls Risk Score 0 05/12 Functional Status Assessment Assessment Assessment Component Result Effecti ve Date Samuel scale total score 22 Functional Status Assessment Assessment Assessment Component Result Effecti ve Date Total score [AUDIT] 1 05/10/25 Functional Status Assessment Assessment Assessment Component Result Effecti ve Date Samuel scale total score 21 Functional Status Assessment Assessment Assessment Component Result Effecti ve Date Total Falls Risk Score 3 05/11 Functional Status Assessment Assessment Assessment Component Result Effecti ve Date Total Falls Risk Score 0 05/12 Functional Status Assessment Assessment Assessment Component Result Effecti ve Date Samuel scale total score 22 Functional Status Assessment Assessment Assessment Component Result Effecti ve Date Disability status [CUBS] I'm Thriving - no identified disability 05/10/25 Do you have difficul ty dressing or bathing No 05/10/25 Do you need any tigre tional assistance or accommodations during your visit No 05/10/25 Difficulty Reading O r Writing No 05/10/25 Difficulty communica ting in usual language No 05/10/25 Because of a physica l, mental, or emotional condition, do you have difficulty doing errands alone such as visiting a physician's office or shopping No 05/10/25 Do you have serious difficulty walking or climbing stairs No 05/10/25 Because of a physica l, mental, or emotional condition, do you have serious difficulty concentrating, remembering, or making decisions No 05/10/25 Are you blind, or do you have serious difficulty seeing, even when wearing glasses No 05/10/25 Are you deaf, or do you have serious difficulty hearing No 05/10/25 Medications amLODIPine 2.5 mg oral tablet 90 each, 0 Refill(s), TAKE 1 TABLET BY MOUTH ONCE DAILY, 0 Refills, 02/09/24 1:54:00 PM EDT, Partialfill upon patient request if the prescription is for a schedule II opioid drug. Start Date: 02/09/24 Status: Ordered Medication Dispense Status: Completed Total Allowed Fills: 1 Fills Dispensed: 0 aspirin 81 mg oral tablet 1 tablet = 81 mg, By Mouth, Daily at bedtime, # 30 tablet, 0 Refills, Maintenance, 04/05/18 11:23:26 AM EDT, Tablet Start Date: 04/05/18 Status: Ordered Medication Dispense Status: Completed Quantity: 30.0 Unit: tablet Total Allowed Fills: 1 Fills Dispensed: 0 atorvastatin 80 mg oral tablet 1 tablet = 80 mg, By Mouth, Daily at bedtime, # 30 tablet, 0 Refills, Maintenance, Tablet, Print Requisition Start Date: 04/16/18 Stop Date: 05/16/18 Status: Ordered Medication Dispense Status: Completed Quantity: 30.0 Unit: tablet Total Allowed Fills: 1 Fills Dispensed: 0 Colace sodium 100 mg oral capsule 100 mg, 1, capsule, By Mouth, 2 times a day, PRN, # 20 capsule, Refills 0, Tot. Refills 0, Maintenance, for constipation, 04/01/25 10:19:00 AM EDT, Route to Pharmacy Electronically, [id number], Partial fill upon patient request if the prescription is for a schedule II opioid drug., 157.5,cm, 01/31/25 12:42:00 EDT, Height, 75.1, kg, 04/01/25 7:10:00 EDT, Dry Weight Start Date: 04/01/25 Status: Ordered Medication Dispense Status: Completed Quantity: 20.0 Unit: capsule Total Allowed Fills: 1 Fills Dispensed: 0 estradiol 0.1 mg/g vaginal cream = 1 Gm, Vaginally, Daily at bedtime, Take every night for two weeks then twice weekly, # 42.5 Gm, 6Refills, Maintenance, 06/11/24 10:42:00 AM EST, [id number], Partial fill upon patient request if the prescription is for a schedule II opioid drug., 157.5, cm, 02/09/24 13:55:00 EDT, Height Start Date: 06/11/24 Status: Ordered Medication Dispense Status: Completed Quantity: 42.5 Unit: g Total Allowed Fills: 7 Fills Dispensed: 0 furosemide 20 mg oral tablet TAKE 1 TABLET BY MOUTH ONCE DAILY Start Date: 02/11/23 Status: Ordered Medication Dispense Status: Completed Total Allowed Fills: 1 Fills Dispensed: 0 Janumet XR 50 mg-500 mg oral tablet, extended release 1 tablet, By Mouth, Daily in PM, # 30 tablet, 0 Refills, Maintenance, 01/31/25 12:41:00 PM EDT, ER Tablet, Partial fill upon patient request if the prescription is for a schedule II opioid drug. Start Date: 01/31/25 Status: Ordered Medication Dispense Status: Completed Quantity: 30.0 Unit: tablet Total Allowed Fills: 1 Fills Dispensed: 0 magnesium gluconate 500 mg oral tablet 1 tablet = 500 mg, By Mouth, 2 times a day, 0 Refills, Maintenance, 06/11/24 10:18:00 AM EST, Partial fill upon patient request if the prescription is for a schedule II opioid drug. Start Date: 06/11/24 Status: Ordered Medication Dispense Status: Completed Total Allowed Fills: 1 Fills Dispensed: 0 Metoprolol Tartrate 50 mg oral tablet TAKE 1 TABLET BY MOUTH TWICE DAILY Start Date: 02/11/23 Status: Ordered Medication Dispense Status: Completed Total Allowed Fills: 1 Fills Dispensed: 0 omeprazole 20 mg oral delayed release tablet 1 tablet = 20 mg, By Mouth, Daily, 0 Refills, Maintenance, 10/15/20 1:58:00 PM EDT, Partial fill upon patient request if the prescription is for a schedule II opioid drug. Start Date: 10/15/20 Status: Ordered Medication Dispense Status: Completed Total Allowed Fills: 1 Fills Dispensed: 0 Synthroid 0.1 mg oral tablet 1 tablet = 100 mcg, By Mouth, Daily, 1 tablet = 100 mcg, By Mouth, Daily. 90 day supply, # 90 tablet, 3 Refills, Maintenance, 05/02/25 3:44:00 PM EST, Tablet, [id number], Do not subsitute, 157.5, cm, 01/31/25 12:42:00 EDT, Height, 75.1, kg, 04/01/25 7:10:00 EDT, Dry Weight Start Date: 05/02/25 Status: Ordered Medication Dispense Status: Completed Quantity: 90.0 Unit: tablet Total Allowed Fills: 4 Fills Dispensed: 0 Problem List Condition Confirmation Course Effective Dates Status H ealth Status Informant Asthma Confirmed Active Obesity (BMI 32.6 as of 12/05/2017) Confirmed Active Cardiomyopathy Confirmed Active CHF (congestive heart failure) Confirmed Active CAD (coronary artery disease) Confirmed Active SOB (shortness of breath) Confirmed Active Ex-smoker, 1/2 ppd X5-10 years, quit 2002 Confirmed Active Angina effort Confirmed Active Graves disease Confirmed Active HTN (hypertension) Confirmed Active Pulmonary nodule Confirmed Active Mitral regurgitation Confirmed Active Rheumatoid arthritis w/chronic steroid exposure Confirmed Active Spinal stenosis Confirmed Active Vital Signs Most recent to oldest [Reference Range]: 1 2 3 Height 157.5 cm (05/13/25 3:29 AM) 157.5 cm (05/12/25 11:11 PM) 157.5 cm (05/12/25 7:24 PM) Weight 74.4 kg (05/12/25 4:10 PM) 74.4 kg (05/10/25 10:11 PM) Oxygen Saturation [94-100 %] 93 % *L* (05/13/25 8:00 AM) 95 % (05/13/25 7:21 AM) 100 % (05/13/25 7:00 AM) Pulse Rate [55-90 bpm] 58 bpm (05/13/25 8:00 AM) 58 bpm (05/13/25 7:00 AM) 51 bpm *L* (05/13/25 3:29 AM) Body Mass Index [18.5-24.99 kg/m2] 29.99 kg/m2 *H* (05/12/25 4:10 PM) 29.99 kg/m2 *H* (05/10/25 10:11 PM) Blood Pressure [90-138/55-84 mm Hg] 133/78mm Hg (05/13/25 8:00 AM) 129/81mm Hg (05/13/25 7:20 AM) 137/75mm Hg (05/13/25 7:00 AM) Respiratory Rate [16-30 br/min] 16 br/min (05/13/25 8:00 AM) 15 br/min *L* (05/13/25 7:21 AM) 18 br/min (05/13/25 7:00 AM) Temperature [96.8-100.4 DegF] 98.5 DegF (05/13/25 8:00 AM) 97.7 DegF (05/13/25 7:00 AM) 97.8 DegF (05/13/25 3:29 AM) Liters per Minute 6 L/min (05/12/25 5:00 PM) Mode of Delivery (Oxygen) Room air (05/13/25 8:00 AM) Room air (05/13/25 7:00 AM) Room air (05/13/25 3:29 AM) Blood pressure sites Arm, right (05/13/25 8:00 AM) Arm, right (05/13/25 7:00 AM) Arm, right (05/13/25 3:29 AM) Temperature Route Oral (05/13/25 8:00 AM) Oral (05/13/25 7:00 AM) Oral (05/13/25 3:29 AM) Dry Weight 74.4 kg (05/10/25 10:11 PM) 74.4 kg (05/10/25 6:06 PM) Dry Weight Obtained Via Standing scale (05/10/25 6:06 PM) Social History Social History Type Response Smoking Status Former smoker; Other : 0.5ppd x ~5-10 years. Quit 2002.; entered on: 02/23/18 Sex Sex Representation Female (finding) Social Determinants of Health Assessment Assessment Assessment Component Result Effecti ve Date Unspecifed Social Determinants of Health Assessment Are you worried abou t losing your housing [PRAPARE] No 05/10/25 Housing status I have housing 05/10/25 Within the last year , have you been afraid of your partner or ex-partner No 05/10/25 Do you feel physical ly and emotionally safe where you currently live [PRAPARE] Yes 05/10/25 How often do you see or talk to people that you care about and feel close to [PRAPARE] 3 to 5 times a week 05/10/25 Has lack of transportation kept you from medical appointments, meetings, work, or from getting things needed for daily living Yes, it has kept me from medical appointments or from getting my medications 05/10/25 Have you or any fami ly members you live with been unable to get any of the following when it was really needed in past 1 year [PRAPARE] None 05/10/25 Flexible sigmoidoscopy study * Event Display: GG Sigmoidoscopy Please click on pdf link to open report History and physical note * Ru PIERCE, Kacey R: MODIFY Patricia Pan DO: PERFORM Event Display: History and Physical Hospital Authored Date: Patient: ??BERT KRAFT ? Age:??70 Years?Sex:??Female?:??1955?LOC:??[facility]?? Chief Complaint abdominal pain, bloody diarrhea History of Present Illness Patient is a 70 yo who is 6 weeks post op from a??Transvaginal Hysterectomy and right salpingoophorectomy,??bilateral Sacrospinous Ligament Fixation,??Posterior repair Enterocele repair,??Midurethral Sling, and??Cystoscopy who was transferred from [facility] where she presented with bright red blood in her stool followed by significant abdominal pain. She states she first noted diarrhea around 3am. She then had two more bowel movements noting stool mixed with blood and then 2-3 more episodes of diarrhea consisting of only blood. She states she then had diffuse abdominal pain. She reports a history of rectal bleeding from hemorrhoids however this feels very different from those prior episodes. She has been taking about 400mg of ibuprofen in the mornings for pain. She states her last colonoscopy at age 62 that was normal and is due in two years. Physical Exam Vitals & Measurements T:??98.0?F?? HR:??75??(Peripheral)?? RR:??20?? BP:??142/74?? SpO2:??100%?? HT:??157.5??cm?? Constitutional:??Normal affect, no acute distress, well-developed. Respirations:??Normal exam, not labored.? Cardiovascular:??Skin warm and well-perfused.? Abdomen/GI:??Soft, diffuse mild tenderness, and non-distended, no guarding, no rebound tenderness.?? Gynecologic:?Vagina: normal support, no lesions, no discharge, vaginal cuff intact Rectal exam:??Rectum intact, no??sutures palpable in the rectum, no??blood noted on??glove. Extremities:??No clubbing, cyanosis, or significant edema present.?? Skin:??No rash or jaundice. Normal for ethnicity. Neurological/Psychiatric:??Appearance appropriate, mood and affect stable. Assessment/Plan Assessment:??Patient is a??70 yo who is s/p??Transvaginal Hysterectomy and right salpingoophorectomy,??bilateral Sacrospinous Ligament Fixation,??Posterior repair, enterocele repair,??Midurethral Sling, and??Cystoscopy on 04/01/2025??who was transferred from [facility] where she presented with bright red blood in her stool followed by significant abdominal pain. CT scan at [facility] showed 4.5x1.8x1.8 cm bilobed loculation that could represent hematoma, abscess, or seroma and a second 2.9x1.8x1.9 cm cystic region along the posterior??superior??right bladder margin that could represent right ovarian cyst vs loculation. Labs at [facility] without leukocytosis (WBC 9.6), H/H stable (13.2/39.4). Given abdominal pain and CT finding plan to admit for IV Zosyn. Rectal exam unremarkable without suture palpable within the rectum. GI PCR and c.diff testing ordered. Patient placed on isolation precautions. Will consult GI for further guidance on diarrhea/ GI bleed. ?? Patient seen and plan discussed with Dr. Vences, attending physician. ?? GI (gastrointestinal bleed) (K92.2):? - Sudden onset diarrhea and hematochezia (p) GI PCR and c.diff (p) GI consult ?? HTN (hypertension) (I10):? - continue home amlodipine and metoprolol - Aspirin held in the setting of GI bleed ?? Graves disease (E05.00):? - s/p thyroidectomy - Continue home levothyroxine ?? Post op infection (T81.40XA):? - s/p??Transvaginal Hysterectomy and right salpingoophorectomy,??bilateral Sacrospinous Ligament Fixation,??Posterior repair,??Enterocele repair,??Midurethral Sling, and??Cystoscopy on 04/01 - [facility] with concern for hematoma vs abscess - IV Zosyn - Tylenol 975mg ?? Attending Attestation:??I have seen and evaluated this patient. ??I have discussed the case and itsmanagement with the resident and agree with the findings and plan as documented in the resident???snote. Patient's abdomen is NT/ND and no rebound or??guarding.??The patient's incisions are intact. Able to palpate the sacrospinous suture on the right side, however, palpated through the rectum wallno no injury from that.?? There was no blood on my glove after rectal exam.?? Patient with no feveror leukocytosis.?? Is on IV antibiotics but I do not think this is from an abscess or is surgicallyrelated.?? I do think she has a GI bleed.?? Awaiting GI consult ?? Kacey Vences MD [facility] Urogynecology OB History History?(0,0,0,0)?No previous pregnancies history have been recorded Active Problem List Active Problem List Angina effort: (Medical) Asthma: (Medical) CAD (coronary artery disease): (Medical) Cardiomyopathy: (Medical) CHF (congestive heart failure): (Medical) Ex-smoker, 1/2 ppd X5-10 years, quit 2002: (Medical) Graves disease: (Medical) HTN (hypertension): (Medical) Mitral regurgitation: (Medical) Obesity (BMI 32.6 as of 12/05/2017): (Medical) Pulmonary nodule: (Medical) Rheumatoid arthritis w/chronic steroid exposure: (Medical) SOB (shortness of breath): (Medical) Spinal stenosis: (Medical) Procedure/Surgical History Total Thyroidectomy: 08/21/19 Cardiac catheterization: 02/28/18 Echocardiogram: 01/31/18 Cardiac catheterization: 01/11/18 Echocardiogram: 06/28/17 Lumber Operation: 2010 Home Medications Amlodipine: 90 each, 0 Refill(s), TAKE 1 TABLET BY MOUTH ONCE DAILY Aspirin: 81 mg = 1 tablet, By Mouth, Daily at bedtime Atorvastatin: 80 mg = 1 tablet, By Mouth, Daily at bedtime Docusate: 100 mg = 1 capsule, By Mouth, 2 times a day, PRN (for constipation) Estradiol Topical: 1 Gm, Vaginally, Daily at bedtime, Take every night for two weeks then twice weekly Furosemide: TAKE 1 TABLET BY MOUTH ONCE DAILY Levothyroxine: 100 mcg = 1 tablet, By Mouth, Daily, 1 tablet = 100 mcg, By Mouth, Daily. ??90 day supply Magnesium Gluconate: 500 mg = 1 tablet, By Mouth, 2 times a day metformin-sitagliptin: 1 tablet, By Mouth, Daily in PM Metoprolol: TAKE 1 TABLET BY MOUTH TWICE DAILY Omeprazole: 20 mg = 1 tablet, By Mouth, Daily Allergies Coreg??unknown Social History Alcohol Use:Current Frequency:1-2 times per year Home/Environment Living situation:Home/Independent Lives with:Spouse Substance Abuse Use:Never Tobacco Use:Former smoker Other:0.5ppd x ~5-10 years. Quit 2002. Family History Mother: Asthma; CAD - Coronary artery disease; Pacemaker... Father (): Unknown Electronically Signed on 05/10/25 08:04 PM Patricia Pan DO Electronically Signed on 05/11/25 08:32 AM Kacey Vences MD EKG study * Event Display: ECG 12-Lead Authored Date: Please click on pdf link to open report * Event Display: ECG 12-Lead Authored Date: Ventricular Rate: 49 BPM Atrial Rate: 49 BPM P-R Interval: 150 ms QRS Duration: 112 ms Q-T Interval: 500 ms QTC Calculation(Bazett): 451 ms R [place]: 26 degrees T [place]: 23 degrees Sinus bradycardia Incomplete right bundle branch block Inferior infarct (cited on or before 12-Apr-2018) Cannot rule out Anterior infarct , age undetermined Abnormal ECG When compared with ECG of 17-Aug-2019 10:51, Incomplete right bundle branch block is now Present QT has lengthened Confirmed by KRISTOPHER AGUILAR ([id number]) on 05/13/2025 1:17:02 PM [place]: KRISTOPHER AGUILAR Procedure * Event Display: Cardiac Rhythm Strips Authored Date: Hospital Progress note * Urszula Tapia RN: MODIFY, SIGN, PERFORM, SIGN, VERIFY, MODIFY, SIGN Event Display: Progress Note Hospital Authored Date: Patient: BERT KRAFT Age: 70 years Sex: Female : 1955 Associated Diagnoses: None Author: Urszula Tapia RN Findings Problem Related to Alteration in Gastrointestinal : Alteration in Gastrointestinal Func/new 05/12/2025 22:00 EST Alteration in GI status Related to Diarrhea Goals & Outcomes, Gastrointestinal Establish a regular pattern of elimination for pt, Nutritional intake is adequate for metabolic needs, Pt will achieve normal/improved fluid balance, Pt will have a bowel movement prior to discharge, Pt will maintain adequate GI function appropriate for pt, Ptwill maintain normal elimination patterns, Pt will resume/maintain adequate hemodynamic status, Pt will tolerate age appropriate diet prior to discharge Interventions, Gastrointestinal Assess/monitor abdomen for distention, tenderness, Assess/monitor abdominal girth & bowel function, Assess/monitor bowel pattern, bowel sounds, flatus, Assess/monitor number of bowel movements, Assess if pt tolerating diet BH Goals/Interventions, Gastrointestinal Yes Gastrointestinal, Problem Start 05/10/2025 23:39 Reviewed plan with, Gastrointestinal Patient Patient Progression, Gastrointestinal Pt progressing according to plan . Nursing Data Vital Signs : VITAL SIGNS SECTION 05/12/2025 19:24 EST Temperature 97.5 DegF Temperature Route Oral Pulse Rate 58 bpm Respiratory Rate 18 br/min Systolic Blood Pressure 159 mm Hg H Diastolic Blood Pressure 72 mm Hg Blood pressure sites Arm, left Mean Arterial Pressure 101 mm Hg Pulse Pressure 87 mm Hg Oxygen Saturation 99 % Mode of Delivery (Oxygen) Room air . Evaluation Plan of Care: Alteration in GI Intervention: See Above. Evaluation: Patient is alert & oriented x4. Lungs are clear bilaterally. Denies chest pain and shortness of breath. Last bowel movement: 05/12. Abdomen is soft, round and non-tender. Tolerating full liquid diet without nausea and vomiting. Voiding in bathroom without difficulty. Skin is intact. Patient ambulating with steady gait. Patient denies pain at this time. Patient resting in bed wtih call baron within reach at this time. At 0000: heart rate down to 45 (manually noted to be 42), asympatomatic paged overnight medicine team regarding per SOCIAL WORK SUPERVISOR Darby Jara EKG ordered & cardiac monitoring ordered: sinus coco overnight: heart rate in 40s Report called to discharge unit. Patient aware of this.. Electronically Signed on 05/12/25 10:37 PM Urszula Tapia RN Electronically Signed on 05/13/25 02:13 AM Urszula Tapia RN Electronically Signed on 05/13/25 07:27 AM Urszula Tapia RN * Alondra PIERCE, Ole: PERFORM Event Display: Progress Note Hospital Authored Date: [id number] Patient: ??BERT KRAFT ? Age:??70 Years?Sex:??Female?:??1955?LOC:??[facility]?? Subjective Patient seen and examined care discussed with nursing. ??No further rectal bleed overnight.?? Currently awaiting flexible sigmoidoscopy. Review of Systems Constitutional:??No weight loss, fever, chills, weakness or fatigue. Eyes:??No visual loss, blurred vision, double vision or yellow sclera ENT:??No hearing loss, sneezing, congestion, runny nose or sore throat. Respiratory:??No shortness of breath, cough or sputum production. Cardiovascular:??No chest pain, chest pressure or chest discomfort. No palpitations or pedal edema. Gastrointestinal:??Rectal bleed now??improved. Neurologic:??No headache, dizziness, syncope, unilateral weakness, ataxia, numbness or tingling in the extremities.?? Musculoskeletal:??No muscle pain, back pain, joint pain or stiffness. Hematologic/Lymphatics:??No bleeding or bruising. No painful lymph nodes. Psychiatric:??No depression or anxiety. Objective ?? Physical Exam Constitutional: Alert, in no distress. Mental Status: Oriented to person, place and time. Head: Normocephalic. Eyes: Pupils are equal, round and reactive to light. Extraocular muscles intact. Ear, Nose and Throat: Oropharynx clear, mucous membranes moist.?? Neck: Supple, Full range of motion. Respiratory: Clear to auscultation. No wheezing, rales or rhonchi. Cardiovascular: S1 S2 regular. No murmurs, rubs or gallops. Gastrointestinal: Abdomen soft, non-tender, non-distended. Normal bowel sounds.?? Genitourinary: No costovertebral angle tenderness. Neurologic: Cranial nerves II-XII grossly intact. No focal neurological deficits.?? Psychiatric: Normal mood and affect Assessment/Plan ?? Patient is a pleasant??70-year-old lady with past medical history of??significant for??congestive heart failure, coronary artery disease,??ischemic cardiomyopathy,??ex-smoker??quit in 2002,??Graves' disease status post thyroidectomy, hypertension, mitral regurgitation??status post coronary artery bypass grafting, rheumatoid arthritis, spinal stenosis??recently discharged from [facility]??following??transvaginal hysterectomy and right salpingo-oophorectomy, bilateral sacrospinous ligament fixation, posterior??of enterocele??with mid urethral sling on 04/01/25??here in [facility]??now presented to [facility]??with??abdominal pain as well as bleeding??per rectum.?Patient initially transferred to??gynecology service??as??surgery was done here and medicine consulted for comanagement of her medical conditions. Subsequently patient transferred to medical service??given the primary issue currently is the GI bleeding ? GI (gastrointestinal bleed) (K92.2):??Patient with recent??transvaginal hysterectomy and right salpingo-oophorectomy??now presenting??and bleeding per rectum.??Initially episodes??consisted of blood mixed with stool but later??fresh blood per rectum.?Her Abdominal pain is now improving.?She is hemodynamically stable and her hemoglobin is stable at 12.2. Stool for C. difficile toxin has been negative Gastroenterology has been consulted and they are planning for flexible sigmoidoscopy today. Differential includes diverticular bleed versus??hemorrhoidal bleed versus??ischemic colitis versusmalignancy. Patient's hemoglobin has been??stable. ?? Abdominal pain;??patient had a CT scan of the abdomen pelvis done in [facility]??which showed 4.5 x 1.8 x 1.8 cm??bilobed loculation??suggestive of hematoma versus abscess versus seroma??and a second??2.9 x 1.8 x 1.9 cm cystic lesion??along the posterior superior??right bladder margin.?? Gynecology team feels this is normal postoperative changes. ??Patient was initially started on IV Zosyn but this was discontinued??on 05/12??after discussion with gynecology team.?? Patient to follow-up with urogynecology team as an outpatient. ?? Graves disease (E05.00):??Patient had a history of Graves' disease and she is status post??thyroidectomy and currently on levothyroxine replacement.??Will continue on her home dose of levothyroxine??100 mcg daily ?? HTN (hypertension) (I10):??Patient is amlodipine 10 mg p.o. daily which will be continued here.??Currently at??the pressures well-controlled. ?? CHF (congestive heart failure) (I50.9):??Patient has history of congestive heart failure??secondaryto ischemic cardiomyopathy.??She can be continued on her home dose of metoprolol 50 g p.o. daily.??Currently she does not appear to be volume overloaded??and??she appears euvolemic.??Given the ongoing GI bleed would recommend holding her home dose of Lasix 20 mg daily.??Will assess fluid status on a daily basis??and resume diuretics when needed. ?? CAD (coronary artery disease) (I25.10):??Patient has history of coronary artery disease??and she reports to me that she had a CABG??done in the past.??She is on aspirin which is on??hold due to GI bleed.??Will monitor for any chest pain. ?? Rheumatoid arthritis w/chronic steroid exposure (M06.9):??Patient sees a political reporter at [facility] and she is on Enbrel injections which will be continued??as before. ?? VTE Prophylaxis:??Heparin will be avoided given the bleeding.??We could use pneumatic compression boots ?? Ongoing medical necessity; awaiting??flexible sigmoidoscopy. ? Electronically Signed on 05/12/25 01:26 PM Alondra PIERCE, Ole * Saray Silva RN: MODIFY, SIGN, VERIFY, PERFORM, MODIFY, SIGN Event Display: Progress Note Hospital Authored Date: [id number] Patient: BERT KRAFT Age: 70 years Sex: Female : 1955 Associated Diagnoses: None Author: Saray Silva RN Findings Problem Related to Alteration in Gastrointestinal : Alteration in Gastrointestinal Func/new 05/12/2025 7:00 EST Alteration in GI status Related to Diarrhea Goals & Outcomes, Gastrointestinal Establish a regular pattern of elimination for pt, Nutritional intake is adequate for metabolic needs, Pt will achieve normal/improved fluid balance, Pt will have a bowel movement prior to discharge, Pt will maintain adequate GI function appropriate for pt, Ptwill maintain normal elimination patterns, Pt will resume/maintain adequate hemodynamic status, Pt will tolerate age appropriate diet prior to discharge Interventions, Gastrointestinal Assess/monitor abdomen for distention, tenderness, Assess/monitor abdominal girth & bowel function, Assess/monitor bowel pattern, bowel sounds, flatus, Assess/monitor number of bowel movements, Assess/monitor color, quantity, quality, consistency of stoo, Assess/monitor pt for nausea, vomiting, Assess/monitor effects of re-hydration, Assess/monitor intake &output, Assess if pt tolerating diet, DVT prophylaxis as ordered, Taking PO: Encourage/monitor intake & swallowing ability, Teach Pt/caregiver diet & give copy of dietary instructions, Teach Pt/caregiver on bowel elimination interventions, Teach Pt/caregiver re: importance of bowel regime, Teach Pt/caregiver re: nutritional intake & dietary restrict, Teach/encourage deep breath & cough exercises, Teach/encourage use of incentive spirometer Goals/Interventions, Gastrointestinal Yes Gastrointestinal, Problem Start 05/10/2025 23:39 Reviewed plan with, Gastrointestinal Patient Patient Progression, Gastrointestinal Pt progressing according to plan . Narrative/Incidental P: Alteration in Gastrointestinal I: See above care plan E: Upon assessment patient reports 7/10 pain. Pain well managed with Tylenol and rest and repositioning. Patient is alert and oriented to person, place, time, and situation. Patient denies numbness and tingling. Patient denies dizziness. Lung sounds clear on room air. Patient denies shortness of breath. Patient utilizing incentive spirometer, reaching 2000, and able to demonstrate usage. Trace bilateral lower extremity edema noted upon assessment. Circulation, movement, and sensation present inall four extremities. Abdomen is soft, round, and tender. Patient denies nausea. Bowel sounds present in all four quadrants. Patient passing gas and belching. Last bowel movement 05/11. Patient NPO, oral care provided. Patient independently ambulating around the room and unit steady on her feet approximately 200 feet at a time. Patient voiding clear yellow urine. Skin is intact. Bed locked and inlowest position. Call baron in reach. 1500 Patient given x2 tap water enemas per GI before procedure . Electronically Signed on 05/12/25 11:13 AM Saray Silva RN Electronically Signed on 05/12/25 03:04 PM Saray Silva RN Note * Event Display: Provider Clarification Note Please click on pdf link to open report * Shirley Koroma RN: PERFORM Event Display: Discharge/Transfer Note Hospital Authored Date: [id number] Nursing Discharge Note Entered On: 05/13/2025 10:07 EST Performed On: 05/13/2025 10:06 EST by Shirley Koroma RN Nursing Discharge Note 2 Discharge Time : 05/13/2025 10:00 EST Discharge Level of Care at Discharge : Home/Shelter/Foster Care Patient Left Unit Via : Wheelchair Patient Accompanied Off Unit with : Responsible adult DC Instructions Provided & Signed by Pt : Yes Patient Understands D/C Instructions : Yes Patient Instructions Discharge Signed : Yes Did Pt have Specialty Bed or Wound Vac : No Shirley Koroma RN - 05/13/2025 10:06 EST Electronically Signed on 05/13/25 10:06 AM Shirley Koroma RN * Alondra PIERCE, Ole: PERFORM Event Display: Discharge/Transfer Note Hospital Authored Date: [id number] Patient: ??BERT KRAFT ? Age:??70 Years?Sex:??Female?:??1955?LOC:??[facility]?? 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) _ Discharge Medications Amlodipine (amLODIPine 2.5 mg oral tablet)??90 each, 0 Refill(s), TAKE 1 TABLET BY MOUTH ONCE DAILY Aspirin (aspirin 81 mg oral tablet)??1 tab(s) 81 Milligram By Mouth Daily at bedtime Atorvastatin (atorvastatin 80 mg oral tablet)??1 tab(s) 80 Milligram By Mouth Daily at bedtime for 30 Days Docusate (Colace sodium 100 mg oral capsule)??100 Milligram 1 capsule By Mouth 2 times a day as needed for constipation Estradiol Topical (estradiol 0.1 mg/g vaginal cream)??1 gram Vaginally Daily at bedtime Take every night for two weeks then twice weekly Furosemide (furosemide 20 mg oral tablet)??TAKE 1 TABLET BY MOUTH ONCE DAILY Levothyroxine (Synthroid 0.1 mg oral tablet)??1 tab(s) 100 Microgram By Mouth Daily 1 tablet = 100 mcg, By Mouth, Daily. ??90 day supply Magnesium Gluconate (magnesium gluconate 500 mg oral tablet)??1 tab(s) 500 Milligram By Mouth 2 times a day metformin-sitagliptin (Janumet XR 50 mg-500 mg oral tablet, extended release)??1 tab(s) By Mouth Daily in PM Metoprolol (Metoprolol Tartrate 50 mg oral tablet)??TAKE 1 TABLET BY MOUTH TWICE DAILY Omeprazole (omeprazole 20 mg oral delayed release tablet)??1 tab(s) 20 Milligram By Mouth Daily ? Discharge Medications Unchanged Amlodipine (amLODIPine 2.5 mg oral tablet)90 each, 0 Refill(s), TAKE 1 TABLET BY MOUTH ONCE DAILY. Aspirin (aspirin 81 mg oral tablet)1 tab(s) Oral Daily at Bedtime. Atorvastatin (atorvastatin 80 mg oral tablet)1 tab(s) Oral Daily at Bedtime for 30 Days. Refills: 0. Docusate (Colace sodium 100 mg oral capsule)1 capsule Oral twice a day as needed for constipation. Refills: 0. Estradiol Topical (estradiol 0.1 mg/g vaginal cream)1 gram Vaginally Daily at Bedtime. Take every night for two weeks then twice weekly. Refills: 6. Furosemide (furosemide 20 mg oral tablet)TAKE 1 TABLET BY MOUTH ONCE DAILY. Levothyroxine (Synthroid 0.1 mg oral tablet)1 tab(s) Oral Daily. 1 tablet = 100 mcg, By Mouth, Daily. 90 day supply. Refills: 3. Magnesium Gluconate (magnesium gluconate 500 mg oral tablet)1 tab(s) Oral twice a day. metformin-sitagliptin (Janumet XR 50 mg-500 mg oral tablet, extended release)1 tab(s) Oral Daily inPM. Metoprolol (Metoprolol Tartrate 50 mg oral tablet)TAKE 1 TABLET BY MOUTH TWICE DAILY. Omeprazole (omeprazole 20 mg oral delayed release tablet)1 tab(s) Oral Daily. Allergies Allergies ?(Active and Proposed Allergies Only) Coreg? (Severity: Unknown severity, Onset: Unknown) ?Reactions: unknown ? Future Appointments Tuesday 10:00 AM EST ?? Type: Return ASBESTOS REMOVAL SUPERVISOR With: Ru PIERCE, Kacey Valderrama Where: [facility] [address] [address]- Status: Pending Hospital Course ??Patient is a 70 yo who is 6 weeks post op from a??Transvaginal Hysterectomy and right salpingoophorectomy,??bilateral Sacrospinous Ligament Fixation,??Posterior repair, Enterocele repair,??Midurethral Sling, and??Cystoscopy who was transferred from [facility] where she presented with bright red blood in her stool followed by significant abdominal pain. She states she first noted diarrhea around 3am. She then had two more bowel movements noting stool mixed with blood and then 2-3 more episodes of diarrhea consisting of only blood. She states she then had diffuse abdominal pain. She reports a history of rectal bleeding from hemorrhoids however this feels very different from those prior episodes. She has been taking about 400mg of ibuprofen in the mornings for pain.CT scan at [facility] showed 4.5x1.8x1.8 cm bilobed loculation that could represent hematoma, abscess, or seroma and a second 2.9x1.8x1.9 cm cystic region along the posterior??superior??right bladder margin that could represent right ovarian cyst vs loculation. ??Given the recent surgery??and her gynecology service in [facility] patient was transferred to [facility] for further evaluation. ? GI (gastrointestinal bleed) (K92.2):??Patient with recent??transvaginal hysterectomy and right salpingo-oophorectomy??now presenting??and bleeding per rectum.??Initially episodes??consisted of blood mixed with stool but later??fresh blood per rectum.?Her Abdominal pain now improved.?She is hem odynamically stable and her hemoglobin is stable at 12.2. Stool for C. difficile toxin has been negative Gastroenterology has been consulted and they did flexible sigmoidoscopy??on the evening of 05/12. ?? She was found to have??diverticulosis of sigmoid colon as well as some features of possible ischemic colitis. Patient did not had any further rectal bleed send hemoglobin has been stable. GI recommended supportive care. ??Biopsies are taken and results will be conveyed to the patient bythe GI team ?? Abdominal pain;??patient had a CT scan of the abdomen pelvis done in [facility]??which showed 4.5 x 1.8 x 1.8 cm??bilobed loculation??suggestive of hematoma versus abscess versus seroma??and a second??2.9 x 1.8 x 1.9 cm cystic lesion??along the posterior superior??right bladder margin.?? Gynecology team feels this is normal postoperative changes. ??Patient was initially started on IV Zosyn but this was discontinued??on 05/12??after discussion with gynecology team.?? Patient to follow-up with urogynecology team as an outpatient. ?? Graves disease (E05.00):??Patient had a history of Graves' disease and she is status post??thyroidectomy and currently on levothyroxine replacement.??Will continue on her home dose of levothyroxine??100 mcg daily ?? HTN (hypertension) (I10):??Patient is amlodipine 10 mg p.o. daily which will be continued here.??Currently at??the pressures well-controlled. ?? CHF (congestive heart failure) (I50.9):??Patient has history of congestive heart failure??secondaryto ischemic cardiomyopathy.??She can be continued on her home dose of metoprolol 50 g p.o. daily.??Currently she does not appear to be volume overloaded??and??she appears euvolemic.??Given the ongoing GI bleed would recommend holding her home dose of Lasix 20 mg daily.??Will assess fluid status on a daily basis??and resume diuretics when needed. ?? CAD (coronary artery disease) (I25.10):??Patient has history of coronary artery disease??and she reports to me that she had a CABG??done in the past.??She is on aspirin which is on??hold due to GI bleed.??Will monitor for any chest pain. ?? Rheumatoid arthritis w/chronic steroid exposure (M06.9):??Patient sees a political reporter at [facility] and she is on Enbrel injections which will be continued??as before. ?? She remained well with no further??bleeding and hemoglobin stable. ??She was independent ambulatingand so discharge plans made today. ? Objective Vital Signs?? Temperature: 98.5 DegF (05/13/25 08:00:00) Temperature Route: Oral (05/13/25 08:00:00) Pulse Rate: 58 bpm (05/13/25 08:00:00) Heart Rate Monitored:??98 bpm??High (05/12/25 17:55:15) Respiratory Rate: 16 br/min (05/13/25 08:00:29) Systolic Blood Pressure: 133 mm Hg (05/13/25 08:00:00) Diastolic Blood Pressure: 78 mm Hg (05/13/25 08:00:00) Blood pressure sites: Arm, right (05/13/25 08:00:00) Mean Arterial Pressure: 80 mm Hg (05/13/25 03:29:00) Pulse Pressure: 55 mm Hg (05/13/25 08:00:00) Oxygen Saturation:??93 %??Low (05/13/25 08:00:29) Liters per Minute: 6 L/min (05/12/25 17:00:00) Mode of Delivery (Oxygen): Room air (05/13/25 08:00:00) Early Warning Score: 4 (05/13/25 07:32:47) ? . Physical Exam Constitutional: Alert, in no distress. Mental Status: Oriented to person, place and time. Head: Normocephalic. Eyes: Pupils are equal, round and reactive to light. Ear, Nose and Throat: Oropharynx clear, mucous membranes moist. Neck: Supple, Full range of motion. Respiratory: Clear to auscultation. No wheezing, rales or rhonchi. Cardiovascular: S1 S2 regular. No murmurs, rubs or gallops. Gastrointestinal: Abdomen soft, non-tender, non-distended. Normal bowel sounds. Genitourinary: No costovertebral angle tenderness. Neurologic: Cranial nerves II-XII grossly intact. No focal neurological deficits. Psychiatric: Normal mood and affect Surgical Procedures Sigmoidoscopy Flexible 05/12/2025 16:41 Pending Results Add On Lab Order ordered on 05/10/2025 CBC w/ Differential ordered on 05/11/2025 Comprehensive Metabolic Panel ordered on 05/11/2025 GI Profile, Stool, PCR ordered on 05/10/2025 Pathology Tissue Request ordered on 05/12/2025 Follow-Up Appointments Added Follow Up ?Time Frame ?Comments Aaron Rob MD?1 week: call to discuss follow up visit Home Health Face to Face ^HomeHealth[facility] Results Discharge Labs BACTERIOLOGY C. Difficile Toxin by PCR NEGATIVE ()?? 05/10/2025 22:36 ? BLOOD BANK Blood Type O Negative ()?? 05/11/2025 11:11 Antibody Screen Negative ()?? 05/11/2025 11:11 ?? BLOOD COUNT & DIFF WBC 7.2 k/mm3 ()?? 05/13/2025 01:15 RBC 4.22 m/mm3 ()?? 05/13/2025 01:15 Hgb 11.6 Gm/dL (Low)?? 05/13/2025 01:15 Hct 34.7 % (Low)?? 05/13/2025 01:15 MCV 82.2 femtoliters ()?? 05/13/2025 01:15 MCH 27.5 pg ()?? 05/13/2025 01:15 MCHC 33.4 Gm/dL ()?? 05/13/2025 01:15 Platelet Count 264 k/mm3 ()?? 05/13/2025 01:15 RDW-SD 39.6 femtoliters ()?? 05/13/2025 01:15 MPV 10.2 femtoliters ()?? 05/13/2025 01:15 Nucleated RBC (Automated) 0.0 #/100 WBC'S ()?? 05/13/2025 01:15 Abs. NRBC 0.0 k/mm3 ()?? 05/13/2025 01:15 Abs. Neut 3.5 k/mm3 ()?? 05/13/2025 01:15 Abs. Lymph 3.0 k/mm3 ()?? 05/13/2025 01:15 Abs. [place] 0.5 k/mm3 ()?? 05/13/2025 01:15 Abs. Eo 0.2 k/mm3 ()?? 05/13/2025 01:15 Abs. Baso 0.1 k/mm3 ()?? 05/13/2025 01:15 Neut % 48.0 % ()?? 05/13/2025 01:15 Lymph % 40.9 % ()?? 05/13/2025 01:15 [place] % 7.3 % ()?? 05/13/2025 01:15 Eos % 2.8 % ()?? 05/13/2025 01:15 Baso % 0.7 % ()?? 05/13/2025 01:15 Imm Gran 0.3 % ()?? 05/13/2025 01:15 Abs. Imm Gran 0.0 k/mm3 ()?? 05/13/2025 01:15 ?? CHEM GENERAL Sodium 141 mmol/L ()?? 05/13/2025 01:15 Potassium 3.3 mmol/L (Low)?? 05/13/2025 01:15 Chloride 106 mmol/L ()?? 05/13/2025 01:15 Bicarbonate Level 23 mmol/L ()?? 05/13/2025 01:15 Anion Gap 12 mmol/L ()?? 05/13/2025 01:15 Glucose Level 90 mg/dL ()?? 05/13/2025 01:15 Glucose, POC 109 mg/dL (High)?? 05/12/2025 21:01 BUN 8 mg/dL ()?? 05/13/2025 01:15 Creatinine-Blood 0.44 mg/dL (Low)?? 05/13/2025 01:15 Estimated GFR Creatinine 105 ML/MIN/1.73 M2 ()?? 05/13/2025 01:15 Calcium 8.8 mg/dL ()?? 05/13/2025 01:15 Protein, Total 6.5 Gm/dL ()?? 05/13/2025 01:15 Albumin 3.8 Gm/dL ()?? 05/13/2025 01:15 AG Ratio 1.4 ()?? 05/13/2025 01:15 Alkaline Phosphatase 94 units/L ()?? 05/13/2025 01:15 AST (SGOT) 14 units/L ()?? 05/13/2025 01:15 ALT (SGPT) 9 units/L ()?? 05/13/2025 01:15 Bilirubin, Total 0.5 mg/dL ()?? 05/13/2025 01:15 ?? STOOL STUDIES GI PCR, Campylobacter NEGATIVE ()?? 05/10/2025 22:36 GI PCR, Plesiomonas shigelloides NEGATIVE ()?? 05/10/2025 22:36 GI PCR, Salmonella NEGATIVE ()?? 05/10/2025 22:36 GI PCR, Vibrio NEGATIVE ()?? 05/10/2025 22:36 GI PCR, Vibrio cholerae NEGATIVE ()?? 05/10/2025 22:36 GI PCR, Yersinia enterocolitica NEGATIVE ()?? 05/10/2025 22:36 GI PCR, Enteroaggregative E coli NEGATIVE ()?? 05/10/2025 22:36 GI PCR, Enteropathogenic E coli NEGATIVE ()?? 05/10/2025 22:36 GI PCR, Enterotoxigenic E coli NEGATIVE ()?? 05/10/2025 22:36 GI PCR, Sdibm-czqgt-yvjnkixqr E coli NEGATIVE ()?? 05/10/2025 22:36 GI PCR, Shigella/Enteroinvasive E coli NEGATIVE ()?? 05/10/2025 22:36 GI PCR, Cryptosporidium NEGATIVE ()?? 05/10/2025 22:36 GI PCR, Cyclospora cayetanensis NEGATIVE ()?? 05/10/2025 22:36 GI PCR, Entamoeba histolytica NEGATIVE ()?? 05/10/2025 22:36 GI PCR, Giardia lamblia NEGATIVE ()?? 05/10/2025 22:36 GI PCR, Adenovirus F 40/41 NEGATIVE ()?? 05/10/2025 22:36 GI PCR, Astrovirus NEGATIVE ()?? 05/10/2025 22:36 GI PCR, Norovirus GI/GII NEGATIVE ()?? 05/10/2025 22:36 GI PCR, Rotavirus A NEGATIVE ()?? 05/10/2025 22:36 GI PCR, Sapovirus NEGATIVE ()?? 05/10/2025 22:36 ?? URINE OTHER Est Creatinine Clearance 96.82 mL/min ()?? 05/13/2025 02:39 ? 40??minutes spent on discharge Electronically Signed on 05/13/25 08:23 AM Alondra PIERCE, Ole Koroma RN, Shirley: PERFORM Event Display: Patient Education/Instruction Authored Date: [id number] Inpatient Adult Discharge Instructions. [place] [id number] Name: BERT KRAFT : 1955?? Visit: 05/10/2025 19:14?? Current Date: 05/13/2025 08:57 ?? Account: [id number]?? Inpatient Adult Discharge Instructions We would like to thank you for allowing us to assist you with your healthcare needs. The following includes patient education materials and information regarding your injury/illness. Our entire staffstrives to provide an excellent experience for our patients and their families. PLEASE ENSURE YOU FOLLOW-UP PER THE INSTRUCTIONS BELOW! ?? YOUR OPINION IS IMPORTANT TO US! Please complete the survey you may receive by mail or email. Your feedback will be used to make improvements to the healthcare experiences of our patients and their families. Surveys are administered by [employer] ?? If further treatment with your primary care physician or another doctor is recommended, it is important for you to keep the appointment. Call your primary care physician or return to the Emergency Department immediately if your condition worsens, fails to improve, or new symptoms develop. If you need to find a doctor, you can call [facility] for a referral at [phone] or toll free at [phone]) or log in to [email or web address].. ?? [facility], in keeping with [facility] guidance, no longer requires face masks for staff, patientsor visitors in most situations. Similiar to time spent indoors at other locations, there is the chance that you were exposed to repiratory viruses during your time with us (such as flu or COVID-19). If you develop symptoms concerning for a viral respiratory infection, please seek testing (and treatment if indicated) from your medical provider or home test kit. ?? You can view and manage your care through the patient portal or by using a health care kolby of your choosing. [employer] is a website that allows you to securely view your medical information including your hospital discharge summary, office visit summaries, medications and follow-up visits. You can also request appointments, renew medications, and request access to your medical information using a health care kolby of your choosing, or just ask a question. You are entitled to know the individuals who participated in your treatment. This information is available within your medical record and will be provided upon your request. You can enroll at [email or web address] or register d uring your next office visit. You have been discharged from [facility], Patient Care Unit: S15??. If you have any questions regarding these instructions, including results of studies pending, afteryou leave, please call us and we will be happy to assist you 17/01. [facility] Your Care Team Attending Physician Ole Cantu MD?? Consulting Providers Ole Cantu MD?? Discharging Providers Ole Cantu MD Your Diagnosis Angina effort CAD (coronary artery disease) Cardiomyopathy Mitral regurgitation Rheumatoid arthritis w/chronic steroid exposure Spinal stenosis CHF (congestive heart failure) GI (gastrointestinal bleed) Graves disease HTN (hypertension) Large bowel diverticular disease Post op infection Tests Performed Below is a partial list of the tests performed during your hospitalization. You may have had other tests and procedures not included in this list. Please discuss all test results with your provider. C.diff PCR, w Rfx Toxin/Ag CBC w/ Differential Comprehensive Metabolic Panel GI Profile, Stool, PCR?-- Results Pending -- GLUCOSE POC H + H Type and Screen Add On Lab Order?? C.diff PCR, w Rfx Toxin/Ag?? CBC w/ Differential?? Comprehensive Metabolic Panel?? GI Profile, Stool, PCR?? Glucose POC?? Hgb + Hct (H + H)?? Pathology Tissue Request ()?? Type and Screen?? Primary Care Provider Aaron Rob MD? Advance Directive Health Care Proxy on File Yes - Health Care Proxy Discharge Vitals Temperature: 98.5 DegF Height: 157.5 cm Pulse Rate: 58 bpm Weight: 74.4 kg Respiratory Rate: 16 br/min Body Mass Index:??29.99 kg/m2??High Systolic Blood Pressure: 133 mm Hg Body surface area: 1.8 Diastolic Blood Pressure: 78 mm Hg ?? Oxygen Saturation:??93 %??Low ?? Studies Pending All studies ordered during this hospital stay have been completed unless listed below. Please discuss all pending results with your provider listed above in these instructions. ?? Add On Lab Order?? CBC w/ Differential?? Comprehensive Metabolic Panel?? GI Profile, Stool, PCR?? Pathology Tissue Request ()?? What to do next Instructions From Your Doctor ?? Orders? 05/13/25 8:24:00 EST?? Prescriptions??, ??05/13/25 8:24:00 EST?? Scheduled Follow-Up Appointments Tuesday 10:00 AM EST ?? Type: Return ASBESTOS REMOVAL SUPERVISOR With: Ru PIERCE, Kacey Valderrama Where: [facility] [address] [address]- Status: Pending You Need to Schedule the Following Appointments Follow Up with??Aaron Rob MD When:Within 1 week: call to discuss follow up visit Where:[address] [place] [address]- Business (1) Discharge Medications BERT KRAFT :1955 Visit Date:05/10/2025 Medications: Please continue your medications until treatment is completed or stopped by your provider. Medications not listed below should be discontinued. Discuss any questions related to medications with your provider. What How Much When Instructions Next Dose Unchanged Amlodipine (amLODIPine 2.5 mg oral tablet) Special Instructions: 90 each, 0 Refill(s), TAKE 1 TABLET BY MOUTH ONCE DAILY ?? am 05/14 Unchanged Aspirin (aspirin 81 mg oral tablet) 1 tab(s) Oral Daily at Bedtime pm 05/13 Unchanged Atorvastatin (atorvastatin 80 mg oral tablet) 1 tab(s) Oral Daily at Bedtime Duration: 30 Days Ordering Physician: Dk Alvarado pm 05/13 Unchanged Docusate (Colace sodium 100 mg oral capsule) 1 capsule Oral Twice a day as needed for for constipation Ordering Physician: Meli Spivey MD pm 05/13 Unchanged Estradiol Topical (estradiol 0.1 mg/ g vaginal cream) 1 gram Vaginally Daily at Bedtime Special Instructions: Take every night for two weeks then twice weekly Ordering Physician: Kacey Vences MD ?? pm 05/13 Unchanged Furosemide (furosemide 20 mg oral tablet) Special Instructions: TAKE 1 TABLET BY MOUTH ONCE DAILY ?? take this am at home Unchanged Levothyroxine (Synthroid 0.1 mg oral tablet) 1 tab(s) Oral Daily Special Instructions: 1 tablet = 100 mcg, By Mouth, Daily. ??90 day supply Ordering Physician: Amara PIERCE, Nacho Lindsay ?? am 05/14 Unchanged Magnesium Gluconate (magnesium gluconate 500 mg oral tablet) 1 tab(s) Oral Twice a day pm 05/13 Unchanged metformin-sitagliptin (Janumet XR 50 mg-500 mg oral tablet, extended release) 1 tab(s) Oral Daily in PM pm 05/13 Unchanged Metoprolol (Metoprolol Tartrate 50 mg oral tablet) Special Instructions: TAKE 1 TABLET BY MOUTH TWICE DAILY ?? pm 05/13 Unchanged Omeprazole (omeprazole 20 mg oral delayed release tablet) 1 tab(s) Oral Daily am 05/14 Prescription Given During Visit No new medications prescribed at time of discharge.?? Laboratory Results Below is a partial list of the most recent Laboratory test results done prior to this discharge. You may have had other tests and procedures not included in this list. Please discuss all test resultswith your provider. Est Creatinine Clearance - 96.82 mL/min (05/13/2025) C.diff PCR, w Rfx Toxin/Ag (05/10/2025) ???C. Difficile Toxin by PCR - NEGATIVE CBC w/ Differential (05/13/2025) ???WBC - 7.2 k/mm3???RBC - 4.22 m/mm3???Hgb - 11.6 Gm/dL???Hct - 34.7 %???MCV - 82.2 femtoliters???MCH - 27.5 pg???MCHC - 33.4 Gm/dL???Platelet Count - 264 k/mm3???RDW-SD - 39.6 femtoliters???MPV - 10.2 femtoliters???Nucleated RBC (Automated) - 0.0 #/100 WBC'S???Abs. NRBC - 0.0 k/mm3???Abs. Neut - 3.5 k/mm3???Abs. Lymph - 3.0 k/mm3???Abs. [place] - 0.5 k/mm3???Abs. Eo - 0.2 k/mm3???Abs. Baso - 0.1 k/mm3???Neut % - 48.0 %???Lymph % - 40.9 %???[place] % - 7.3 %???Eos % - 2.8 %???Baso % - 0.7 %???Imm Gran - 0.3 %???Abs. Imm Gran - 0.0 k/mm3 Comprehensive Metabolic Panel (05/13/2025) ???Sodium - 141 mmol/L???Potassium - 3.3 mmol/L???Chloride - 106 mmol/L???Bicarbonate Level - 23 mmol/L???Anion Gap - 12 mmol/L???Glucose Level - 90 mg/dL???BUN - 8 mg/dL???Creatinine-Blood - 0.44 mg/dL???Estimated GFR Creatinine - 105 ML/MIN/1.73 M2???Calcium - 8.8 mg/dL???Protein, Total - 6.5 Gm/dL???Albumin - 3.8 Gm/dL???AG Ratio - 1.4???Alkaline Phosphatase - 94 units/L???AST (SGOT) - 14 units/L???ALT (SGPT) - 9 units/L???Bilirubin, Total - 0.5 mg/dL GLUCOSE POC (05/12/2025) ???Glucose, POC - 109 mg/dL H + H (05/11/2025) ???Hgb - 12.5 Gm/dL???Hct - 36.9 % Type and Screen (05/11/2025) ???Blood Type - O Negative???Antibody Screen - Negative Allergies (NKA means No Known Allergies) Coreg??unknown Problems Active Problems??(14) Angina effort?? Asthma?? CAD (coronary artery disease)?? Cardiomyopathy?? CHF (congestive heart failure)?? Ex-smoker, 1/2 ppd X5-10 years, quit 2002?? Graves disease?? HTN (hypertension)?? Mitral regurgitation?? Obesity (BMI 32.6 as of 12/05/2017)?? Pulmonary nodule?? Rheumatoid arthritis w/chronic steroid exposure?? SOB (shortness of breath)?? Spinal stenosis?? Education Materials Below is the list of Educational Leaflet Providered with your Discharge Instructions. [employer] Patient Education - Lower Gastrointestinal (GI) Bleeding (Stable)?? Valuables and Belongings I fully understand and agree that [facility] accepts no responsibility for all my personal property including clothing, toilet articles, radios, jewelry, dentures, hearing aids, rings, money, or any other property that is in my possession or is brought to me after admission. I understand certain valuables may be placed in a hospital safe for a short period of time. I understand that the hospital is not liable for loss or damage due to accident, fire, or other natural occurrence while said property is in the safe. I accept full responsibility for any personal property that I keep with me, and will not hold the hospital responsible in case of loss or disappearance. I acknowledge that i have been encouraged to send valuables and belongings home. ?? Review of Valuable and Belonging List: With patient Possessions released to: no valuables or belongings in pre-op 05/12/2025 Date for Pt to Sign Valuables/Belongings: 05/13/25 08:08:00 ?? Other Discharge Information ? Pulmonary Rehab Status?? Pulmonary Rehab Discharge Status?? Respiratory Rate: 16 br/min ? Common Emergency Awareness Tips IS IT A STROKE? Act FAST and Check for these signs: FACE Does the face look uneven? ARM Does one arm drift down? SPEECH Does their speech sound strange? TIME Call at any sign of stroke ?? Heart Attack Signs Chest discomfort: Most heart attacks involve discomfort in the center of the chest and lasts more than a few minutes, or goes away and comes back. It can feel like uncomfortable pressure, squeezing, fullness or pain. Discomfort in upper body: Symptoms can include pain or discomfort in one or both arms, back, neck, jaw or stomach. Shortness of breath: With or without discomfort. Other signs: Breaking out in a cold sweat, nausea, or lightheaded. Remember, MINUTES DO MATTER. If you experience any of these heart attack warning signs, call to get immediate medical attention! ?? Smoking can increase your chances of developing chronic health problems and can cause harmful effects to other family members in your house. If you smoke, you are strongly encouraged to quit. Please call [facility] [employer] Link at [phone] or [phone] ([phone]) or log in to [email or web address] for referrals to smoking cessation programs. ?? 896 Suicide & Crisis Lifeline is available 17/01 if you or someone you know needs to find a reason to keep living. By calling 095 you'll be connected to a skilled, trained counselor at a crisis center in your area. INPATIENT DISCHARGE INSTRUCTIONS SIGNATURE PAGE BERT KRAFT Location:[facility] Registration Date and Time:05/10/2025 19:14 EST Primary Care Physician: Aaron Rob MD, [id number] Attending Physician: Alondra PIERCE, Ole, I BERT KRAFT, have received the above patient education materials/instructions and have verbalized understanding. If ambulance or transport services are being used I further acknowledge being given a choice of service. ?? If you need to contact me, please call me at this number: . Patient/Rubber Goods Tester Name: Patient/Rubber Goods Tester Signature: Relationship to Patient: Witness Name/Signature: Date: * Ole Cantu MD: PERFORM, SIGN, VERIFY Event Display: Patient Education Handout Authored Date: [id number] * Shirley Koroma RN: PERFORM Event Display: Patient Education Leaflets Authored Date: [id number] Lower Gastrointestinal (GI) Bleeding (Stable) ?? [id number] Lower Gastrointestinal (GI) Bleeding (Stable) You have signs of blood in your stool. This is called rectal bleeding. The bleeding may have begun in another part of your gastrointestinal (GI) tract. If the blood is bright red, it's likely coming from the lower part of the GI tract. If the blood is black or dark, it might be coming from higher up in the GI tract. Very small amounts of GI bleeding may not be visible and can only be discovered during a test on your stool. Possible causes of lower GI bleeding include: ??? Swollen inflamed veins in the rectum (hemorrhoids) ??? Tear in the lining of the anus (anal fissures) ??? Bleeding from a blood vessel in a small pouch in the large intestine (diverticular bleeding) ??? Inflammatory bowel disease (Crohn's disease or ulcerative colitis) ??? Polyps (growths) in the intestine ??? Swelling and irritation of the colon (infectious colitis or other types of colitis)??? Colon cancer Note:??Iron supplements and medicines for diarrhea or upset stomach can cause black stools. Foods, such as licorice and red beets, can also discolor the stool and be mistaken for bleeding. These are not bleeding and are not a cause for alarm. Home care You have not lost a large amount of blood and your condition appears stable at this time.??You may resume normal activity as long as you feel well. Don't take NSAIDs, such as aspirin, ibuprofen, or naproxen. They can irritate the stomach and causefurther bleeding. If you are taking these medicines for other medical reasons, talk to your healthcare provider before you stop them.? Follow-up care Follow up with your healthcare provider, or as advised. Further tests may be needed to find??the cause of your bleeding. ?? When to get medical advice Call your healthcare provider??right away??if any of the following occur: ??? Rectal bleeding?Increasing belly (abdominal) pain ??? Weakness, dizziness ??? Current symptoms get worse, or you have new symptoms ?? Call 911 Call 911 if any of the following occur: ??? Loss of consciousness ??? Vomiting blood ??? Large amount of rectal bleeding? Last Reviewed Date: 2025 00:00:00 ?? [id number] [employer]. All rights reserved. This information is not intended as a substitute for professional medical care. Always follow your healthcare professional's instructions. ?? Consult note * Mateo Hartman MD: PERFORM Event Display: Consultation Note Authored Date: [id number] Patient: ??BERT KRAFT ? Age:??70 Years?Sex:??Female?:??1955?LOC:??[facility]?? Referrring Provider Patricia Pan DO Chief Complaint Abdominal pain, diarrhea, hematochezia Reason for Consultation Abdominal pain, diarrhea, hematochezia History of Present Illness This is a 70-year-old female with a past medical history of CHF, CAD, ischemic cardiomyopathy, prior tobacco use, Graves' disease s/p thyroidectomy, hypertension, prior CABG, rheumatoid arthritis, spinal stenosis, recent transvaginal hysterectomy and right salpingo-oophorectomy with bilateral sacros pinous ligament fixation, posterior repair, enterocele repair with mid urethral sling on 04/01 who presented to the ED with abdominal pain/hematochezia. ?? Patient has a recent history of urogyn surgery with transvaginal hysterectomy, posterior repair, bilateral sacrospinous ligament fixation, and anterior seal repair.?? Postop course went well.?? Unfortunately yesterday she began to experience left-sided abdominal pain and had multiple episodes of hematochezia for which she initially presented to [facility] for further evaluation.?? There she was noted to have a hemoglobin of 13.2 and white count of 9.6.?? CT imaging revealed a bilobed loculationof 4.5 x 1.8 x 1.8 cm possibly representing hematoma versus abscess versus seroma as well as a second 2.9 x 1.8 x 1.9 cm cystic region around the posterior superior right bladder margin possibly repre senting ovarian cyst versus loculation.?? She was ultimately transferred to [facility] for further management in light of her recent surgery here. ?? Here she has been afebrile and hemodynamically stable.?? Hemoglobin stable at 12.2 and labs otherwise reassuring.?? No repeat imaging obtained here.?? She is on IV Zosyn given CT findings and GI have been consulted for further recommendations. Review of Systems All relevant systems reviewed and are negative with exception of those discussed in HPI Physical Exam Vitals & Measurements T:??98.3?F?? TMIN:??97.2?F?? TMAX:??98.3?F?? HR:??60??(Peripheral)?? RR:??18?? BP:??134/73?? SpO2:??99%?? WT:??74.4??kg?? General: No acute distress HEENT: EOMI, mucous membranes moist Abdominal: Soft, nontender.?? Psych: Affect appropriate Assessment/Plan Assessment:??This is a 70-year-old female with a past medical history of CHF, CAD, ischemic cardiomyopathy, prior tobacco use, Graves' disease s/p thyroidectomy, hypertension, prior CABG, rheumatoid arthritis, spinal stenosis, recent transvaginal hysterectomy and right salpingo-oophorectomy with bilateral sacrospinous ligament fixation, posterior repair, enterocele repair with mid urethral sling on 04/01 who presented to the ED with abdominal pain/hematochezia. ?? Problems - Abdominal pain, diarrhea, hematochezia - Severe diverticulosis - Colitis of descending colon ?? Patient presenting with relatively sudden onset abdominal pain and multiple episodes of hematochezia also with diarrhea.??Symptoms seem to be improving at this point and diarrhea/hematochezia is starting to slow down.??Infectious workup has been negative.??On review of this patient's CT imaging shehas very severe sigmoid colon diverticulosis as well as colonic wall thickening from the splenic flexure down to the rectum.??Differentials for hematochezia here include a diverticular bleed however the possibility of colonic ischemia also needs to be explored especially with evidence of colitis ofthe descending colon.??She would benefit from flexible sigmoidoscopy to evaluate the left-sided colon further and this will likely help to guide further management as well.??She may well need a full colonoscopy at some point in the future which she can have done either through us or with her primary GI at [facility]. ?? Recommendation/plan ??? Please keep n.p.o. after midnight ??? Monitor for overt bleeding and transfuse as needed to maintain hemoglobin above 7 ??? Will plan for flexible sigmoidoscopy tomorrow ??? Will need to be given to tapwater enemas before sigmoidoscopy tomorrow ??? Will continue to follow along with you ?? Patient has been??seen and??discussed with Dr. Esau Hartman PGY5 Pager: [phone] ?? Problem List/Past Medical History Ongoing Angina effort Asthma CAD (coronary artery disease) Cardiomyopathy CHF (congestive heart failure) Ex-smoker, 1/2 ppd X5-10 years, quit 2003 Graves disease HTN (hypertension) Mitral regurgitation Obesity (BMI 32.6 as of 12/05/2017) Pulmonary nodule Rheumatoid arthritis w/chronic steroid exposure SOB (shortness of breath) Spinal stenosis Procedure/Surgical History Total Thyroidectomy: 08/21/19 Cardiac catheterization: 02/28/18 Echocardiogram: 01/31/18 Cardiac catheterization: 01/11/18 Echocardiogram: 06/28/17 Lumber Operation: 2010 Medications Inpatient Acetaminophen(Tylenol 325 mg oral tablet), 975 mg, By Mouth, Every 6 hours, PRN Amlodipine(amLODIPine 5 mg oral tablet), 2.5 mg, By Mouth, Daily Furosemide(furosemide 20 mg oral tablet), 20 mg, By Mouth, Daily Levothyroxine(Synthroid 0.1 mg oral tablet), 100 mcg, By Mouth, Daily Metoprolol(Lopressor 50 mg oral tablet), 50 mg, By Mouth, 2 times a day Pantoprazole(pantoprazole 20 mg oral delayed release tablet), 20 mg, By Mouth, Daily Piperacillin-Tazobactam(Zosyn Extended IVPB), 3.375 Gm, IVPB, Every 8 hours Home Amlodipine(amLODIPine 2.5 mg oral tablet) Aspirin(aspirin 81 mg oral tablet), 81 mg= 1 tablet, By Mouth, Daily at bedtime Atorvastatin(atorvastatin 80 mg oral tablet), 80 mg= 1 tablet, By Mouth, Daily at bedtime Docusate(Colace sodium 100 mg oral capsule), 100 mg= 1 capsule, By Mouth, 2 times a day, PRN Estradiol Topical(estradiol 0.1 mg/g vaginal cream), 1 Gm, Vaginally, Daily at bedtime, 6 refills Furosemide(furosemide 20 mg oral tablet) Levothyroxine(Synthroid 0.1 mg oral tablet), 100 mcg= 1 tablet, By Mouth, Daily, 3 refills Magnesium Gluconate(magnesium gluconate 500 mg oral tablet), 500 mg= 1 tablet, By Mouth, 2 times a day metformin-sitagliptin(Janumet XR 50 mg-500 mg oral tablet, extended release), 1 tablet, By Mouth, Daily in PM Metoprolol(Metoprolol Tartrate 50 mg oral tablet) Omeprazole(omeprazole 20 mg oral delayed release tablet), 20 mg= 1 tablet, By Mouth, Daily Allergies Coreg??unknown Social History Alcohol Use:Current Frequency:1-2 times per year Type:Wine Home/Environment Living situation:Home/Independent Lives with:Spouse Substance Abuse Use:Never Tobacco Use:Former smoker Other:0.5ppd x ~5-10 years. Quit 2002. Family History Asthma: Mother. CAD - Coronary artery disease: Mother. Pacemaker...: Mother. Unknown: Father. Family Member(s) Relationship: Father, Age: 83 years Electronically Signed on 05/11/25 03:15 PM Mateo Hartman MD * Esau Taveras MD, Jos Jacques: PERFORM Event Display: Consultation Note Authored Date: [id number] Attending Attestation:??I have seen and evaluated this patient. ??I have discussed the case and itsmanagement with the fellow and agree with the findings and plan as documented in the fellow???s note.??Proceed with flexible sigmoidoscopy.?? Imaging reviewed from outside center.?? Colitis changes should be visible via flexible sigmoidoscopy. Ischemic colitis suspected clinically & radiographically.? Given recent pelvic surgery, would prefer not to perform full colonoscopy as the transmural pressures with these maneuvers may increase risk of pericolonic injury Electronically Signed on 05/11/25 05:54 PM Esau Taveras MD, Jos Jacques * Alondra PIERCE, Ole: PERFORM Event Display: Consultation Note Authored Date: [id number] Patient: ??BERT KRAFT ? Age:??70 Years?Sex:??Female?:??1955?LOC:??[facility]?? Chief Complaint/Reason for Consultation Patient transferred from [facility] for abdominal pain??and bleeding per rectum. ??Medicine consulted for comanagement History of Present Illness Patient is a pleasant??70-year-old lady with past medical history of??significant for??congestive heart failure, coronary artery disease,??ischemic cardiomyopathy,??ex-smoker??quit in 2002,??Graves' disease status post thyroidectomy, hypertension, mitral regurgitation??status post coronary artery bypass grafting, rheumatoid arthritis, spinal stenosis??recently discharged from [facility]??following??transvaginal hysterectomy and right salpingo-oophorectomy, bilateral sacrospinous ligament fixation, posterior??of enterocele??with mid urethral sling on 04/01/25??here in [facility]??now presented to [facility]??with??abdominal pain as well as bleeding??per rectum.?? She describes this initial episodes??where blood mixed with stools but later bright red blood alone.?? She also reported diffuse abdominal pain. ??She has history of hemorrhoids but this??bleeding was somewhat different from her previous hemorrhoidal bleed.?? Patient underwent a CAT scan ofthe abdomen pelvis in [facility] which showed??4.5 x 1.8 x 1.8 cm??bilobed loculation??suggestive of hematoma versus abscess versus seroma??and a second??2.9 x 1.8 x 1.9 cm cystic lesion??along the posterior superior??right bladder margin.?? Patient was transferred to[facility] enter admitted under gynecology service for further management.? Given the rectal bleed GI was consulted by gynecology team and medicine consulted as well for comanagement.?? At the time of my evaluation she was comfortable alert sitting in??bed and able to give a good history.?? She felt that her??bleeding per rectum is improving and none??in the last few hours. ??She denies any dizziness lightheadedness chest pain or palpitations.?? She denies any nausea or vomiting fever or chills. Review of Systems Constitutional:??No weight loss, fever, chills, weakness or fatigue. Allergy/Immune: Denies any??Eczema or hives Eyes:??No visual loss, blurred vision, double vision or yellow sclera ENT:??No hearing loss, sneezing, congestion, runny nose or sore throat. Respiratory:??No shortness of breath, cough or sputum production. Cardiovascular:??No chest pain, chest pressure or chest discomfort. No palpitations or pedal edema. Gastrointestinal:??Bleeding??per rectum.?? Abdominal pain now improved Genitourinary:??No burning micturition. No urinary frequency or incontinence. Neurologic:??No headache, dizziness, syncope, unilateral weakness, ataxia, numbness or tingling in the extremities.?? Musculoskeletal:??No muscle pain, back pain, joint pain or stiffness. Psychiatric:??No depression or anxiety. Objective Vital Signs?? Temperature: 98.3 DegF (05/11/25 11:00:00) Temperature Route: Oral (05/11/25 11:00:00) Pulse Rate: 60 bpm (05/11/25 11:00:00) Heart Rate Monitored: 61 bpm (05/10/25 20:50:00) Respiratory Rate: 18 br/min (05/11/25 11:00:00) Systolic Blood Pressure: 134 mm Hg (05/11/25 11:00:00) Diastolic Blood Pressure: 73 mm Hg (05/11/25 11:00:00) Blood pressure sites: Arm, right (05/11/25 11:00:00) Mean Arterial Pressure: 96 mm Hg (05/11/25 10:51:00) Pulse Pressure: 61 mm Hg (05/11/25 11:00:00) Oxygen Saturation: 99 % (05/11/25 11:00:00) Mode of Delivery (Oxygen): Room air (05/11/25 11:00:00) Early Warning Score: 0 (05/11/25 11:47:44) ? Physical Exam Constitutional: Alert, in no distress. Mental Status: Oriented to person, place and time. Head: Normocephalic. Eyes: Pupils are equal, round and reactive to light.?? Ear, Nose and Throat: Oropharynx clear, mucous membranes moist.?? Neck: Supple, Full range of motion. Respiratory: Clear to auscultation. No wheezing, rales or rhonchi. Cardiovascular: S1 S2 regular. No murmurs, rubs or gallops. Gastrointestinal: Abdomen soft,??minimal tenderness in lower abdomen. ??No guarding or rigidity. Genitourinary: No costovertebral angle tenderness.?? Neurologic:??Patient alert oriented x 3. ??Moves all extremities spontaneously.?? Musculoskeletal: No cyanosis or clubbing. No gross deformities. Normal range of motion. Psychiatric: Normal mood and affect Assessment/Plan Patient is a pleasant??70-year-old lady with past medical history of??significant for??congestive heart failure, coronary artery disease,??ischemic cardiomyopathy,??ex-smoker??quit in 2002,??Graves' disease status post thyroidectomy, hypertension, mitral regurgitation??status post coronary artery bypass grafting, rheumatoid arthritis, spinal stenosis??recently discharged from [facility]??following??transvaginal hysterectomy and right salpingo-oophorectomy, bilateral sacrospinous ligament fixation, posterior??of enterocele??with mid urethral sling on 04/01/25??here in [facility]??now presented to [facility]??with??abdominal pain as well as bleeding??per rectum.?Medicine consulted for comanagement of her medical conditions. ? GI (gastrointestinal bleed) (K92.2):??Patient with recent??transvaginal hysterectomy and right salpingo-oophorectomy??now presenting??and bleeding per rectum.??Initially episodes??consisted of blood mixed with stool but later??fresh blood per rectum.?Her Abdominal pain is now improving.?She is hemodynamically stable and her hemoglobin is stable at 12.2. Stool for C. difficile toxin has been negative Gastroenterology has been consulted and awaiting evaluation. Differential includes diverticular bleed versus??hemorrhoidal bleed versus??ischemic colitis versusmalignancy. Monitor hemoglobin and await further??GI??input. ?? Graves disease (E05.00):??Patient had a history of Graves' disease and she is status post??thyroidectomy and currently on levothyroxine replacement.??Will continue on her home dose of levothyroxine??100 mcg daily ?? HTN (hypertension) (I10):??Patient is amlodipine 10 mg p.o. daily which will be continued here.??Currently at??the pressures well-controlled. ?? CHF (congestive heart failure) (I50.9):??Patient has history of congestive heart failure??secondaryto ischemic cardiomyopathy.??She can be continued on her home dose of metoprolol 50 g p.o. daily.??Currently she does not appear to be volume overloaded??and??she appears euvolemic.??Given the ongoing GI bleed would recommend holding her home dose of Lasix 20 mg daily.??Will assess fluid status on a daily basis??and resume diuretics when needed. ?? CAD (coronary artery disease) (I25.10):??Patient has history of coronary artery disease??and she reports to me that she had a CABG??done in the past.??She is on aspirin which is on??hold due to GI bleed.??Will monitor for any chest pain. ?? Rheumatoid arthritis w/chronic steroid exposure (M06.9):??Patient sees a political reporter at [facility] and she is on Enbrel injections which will be continued??as before. ?? VTE Prophylaxis:??Heparin will be avoided given the bleeding.??We could use pneumatic compression boots ?? Thank you for consultation. ??Our medical consultation team will continue to follow along with you. ? Medications Home Medications Amlodipine (amLODIPine 2.5 mg oral tablet)??90 each, 0 Refill(s), TAKE 1 TABLET BY MOUTH ONCE DAILY Aspirin (aspirin 81 mg oral tablet)??1 tab(s) 81 Milligram By Mouth Daily at bedtime Atorvastatin (atorvastatin 80 mg oral tablet)??1 tab(s) 80 Milligram By Mouth Daily at bedtime for 30 Days Docusate (Colace sodium 100 mg oral capsule)??100 Milligram 1 capsule By Mouth 2 times a day as needed for constipation Estradiol Topical (estradiol 0.1 mg/g vaginal cream)??1 gram Vaginally Daily at bedtime Take every night for two weeks then twice weekly Furosemide (furosemide 20 mg oral tablet)??TAKE 1 TABLET BY MOUTH ONCE DAILY Levothyroxine (Synthroid 0.1 mg oral tablet)??1 tab(s) 100 Microgram By Mouth Daily 1 tablet = 100 mcg, By Mouth, Daily. ??90 day supply Magnesium Gluconate (magnesium gluconate 500 mg oral tablet)??1 tab(s) 500 Milligram By Mouth 2 times a day metformin-sitagliptin (Janumet XR 50 mg-500 mg oral tablet, extended release)??1 tab(s) By Mouth Daily in PM Metoprolol (Metoprolol Tartrate 50 mg oral tablet)??TAKE 1 TABLET BY MOUTH TWICE DAILY Omeprazole (omeprazole 20 mg oral delayed release tablet)??1 tab(s) 20 Milligram By Mouth Daily ? Inpatient Medications Medications (7) Active SCHEDULED: (6) Amlodipine 5 mg Tablet (amLODIPine 5 mg oral tablet) ??2.5 mg, By Mouth, Daily Furosemide 20 mg Tablet (furosemide 20 mg oral tablet) ??20 mg, By Mouth, Daily Levothyroxine 100 mcg Tablet (Synthroid 0.1 mg oral tablet) ??100 mcg, By Mouth, Daily Metoprolol 50 mg Tablet (Lopressor 50 mg oral tablet) ??50 mg, By Mouth, 2 times a day Pantoprazole 20 mg EC Tablet (pantoprazole 20 mg oral delayed release tablet) ??20 mg, By Mouth, Daily Piperacillin/Tazobactam 3.375 Gm Inj (Zosyn Extended IVPB) ??3.375 Gm, IVPB, Every 8 hours CONTINUOUS: (0) PRN: (1) Acetaminophen 325 mg Tablet (Tylenol 325 mg oral tablet) ??975 mg, By Mouth, Every 6 hours ? Results Recent Labs BACTERIOLOGY C. Difficile Toxin by PCR NEGATIVE ()?? 05/10/2025 22:36 ?? BLOOD COUNT & DIFF WBC 7.9 k/mm3 ()?? 05/11/2025 11:25 RBC 4.50 m/mm3 ()?? 05/11/2025 11:25 Hgb 12.2 Gm/dL ()?? 05/11/2025 11:25 Hct 36.6 % ()?? 05/11/2025 11:25 MCV 81.3 femtoliters ()?? 05/11/2025 11:25 MCH 27.1 pg ()?? 05/11/2025 11:25 MCHC 33.3 Gm/dL ()?? 05/11/2025 11:25 Platelet Count 245 k/mm3 ()?? 05/11/2025 11:25 RDW-SD 38.4 femtoliters ()?? 05/11/2025 11:25 MPV 9.6 femtoliters ()?? 05/11/2025 11:25 Nucleated RBC (Automated) 0.0 #/100 WBC'S ()?? 05/11/2025 11:25 Abs. NRBC 0.0 k/mm3 ()?? 05/11/2025 11:25 Abs. Neut 4.7 k/mm3 ()?? 05/11/2025 11:25 Abs. Lymph 2.5 k/mm3 ()?? 05/11/2025 11:25 Abs. [place] 0.6 k/mm3 ()?? 05/11/2025 11:25 Abs. Eo 0.1 k/mm3 ()?? 05/11/2025 11:25 Abs. Baso 0.1 k/mm3 ()?? 05/11/2025 11:25 Neut % 59.0 % ()?? 05/11/2025 11:25 Lymph % 31.4 % ()?? 05/11/2025 11:25 [place] % 7.3 % ()?? 05/11/2025 11:25 Eos % 1.4 % ()?? 05/11/2025 11:25 Baso % 0.6 % ()?? 05/11/2025 11:25 Imm Gran 0.3 % ()?? 05/11/2025 11:25 Abs. Imm Gran 0.0 k/mm3 ()?? 05/11/2025 11:25 ?? CHEM GENERAL Sodium 139 mmol/L ()?? 05/11/2025 03:09 Potassium 3.4 mmol/L (Low)?? 05/11/2025 03:09 Chloride 106 mmol/L ()?? 05/11/2025 03:09 Bicarbonate Level 23 mmol/L ()?? 05/11/2025 03:09 Anion Gap 10 mmol/L ()?? 05/11/2025 03:09 Glucose Level 135 mg/dL (High)?? 05/11/2025 03:09 Glucose, POC 102 mg/dL (High)?? 05/11/2025 11:21 BUN 12 mg/dL ()?? 05/11/2025 03:09 Creatinine-Blood 0.49 mg/dL (Low)?? 05/11/2025 03:09 Estimated GFR Creatinine 103 ML/MIN/1.73 M2 ()?? 05/11/2025 03:09 Calcium 8.6 mg/dL ()?? 05/11/2025 03:09 Protein, Total 6.6 Gm/dL ()?? 05/11/2025 03:09 Albumin 3.4 Gm/dL ()?? 05/11/2025 03:09 AG Ratio 1.1 ()?? 05/11/2025 03:09 Alkaline Phosphatase 115 units/L (High)?? 05/11/2025 03:09 AST (SGOT) 11 units/L ()?? 05/11/2025 03:09 ALT (SGPT) 8 units/L ()?? 05/11/2025 03:09 Bilirubin, Total 0.6 mg/dL ()?? 05/11/2025 03:09 ?? STOOL STUDIES GI PCR, Campylobacter NEGATIVE ()?? 05/10/2025 22:36 GI PCR, Plesiomonas shigelloides NEGATIVE ()?? 05/10/2025 22:36 GI PCR, Salmonella NEGATIVE ()?? 05/10/2025 22:36 GI PCR, Vibrio NEGATIVE ()?? 05/10/2025 22:36 GI PCR, Vibrio cholerae NEGATIVE ()?? 05/10/2025 22:36 GI PCR, Yersinia enterocolitica NEGATIVE ()?? 05/10/2025 22:36 GI PCR, Enteroaggregative E coli NEGATIVE ()?? 05/10/2025 22:36 GI PCR, Enteropathogenic E coli NEGATIVE ()?? 05/10/2025 22:36 GI PCR, Enterotoxigenic E coli NEGATIVE ()?? 05/10/2025 22:36 GI PCR, Xnuyy-dnahh-wrvxzkyho E coli NEGATIVE ()?? 05/10/2025 22:36 GI PCR, Shigella/Enteroinvasive E coli NEGATIVE ()?? 05/10/2025 22:36 GI PCR, Cryptosporidium NEGATIVE ()?? 05/10/2025 22:36 GI PCR, Cyclospora cayetanensis NEGATIVE ()?? 05/10/2025 22:36 GI PCR, Entamoeba histolytica NEGATIVE ()?? 05/10/2025 22:36 GI PCR, Giardia lamblia NEGATIVE ()?? 05/10/2025 22:36 GI PCR, Adenovirus F 40/41 NEGATIVE ()?? 05/10/2025 22:36 GI PCR, Astrovirus NEGATIVE ()?? 05/10/2025 22:36 GI PCR, Norovirus GI/GII NEGATIVE ()?? 05/10/2025 22:36 GI PCR, Rotavirus A NEGATIVE ()?? 05/10/2025 22:36 GI PCR, Sapovirus NEGATIVE ()?? 05/10/2025 22:36 ?? URINE OTHER Est Creatinine Clearance 86.94 mL/min ()?? 05/11/2025 04:31 ? Electronically Signed on 05/11/25 12:32 PM Alondra PIERCE, Ole Patient Care team information Care Team Personnel Name: Sudha Christensen RN Position: S RN Member Role: Primary Care Nurse Name: Aaron Rob MD Position: Reference Physician Member Role: PCP Address: [address] [place] [address] Aaron Rob [place], [place] [address] Telecom: [phone] Name: Stephen Summers MD Position: [facility] Renal MD Member Role: Lifetime Consulting Physician Address: [address] [place] [address] [id number] [facility] [place], [place] [address] Telecom: Name: Phyllis Sarkar RN Position: S RN Member Role: Primary Care Nurse Name: Martha Perez RN Position: S RN Member Role: Primary Care Nurse Name: Kimberlyn Richards RN Position: S RN Member Role: Primary Care Nurse Name: Dwight Rodriguez RN Position: [facility] RN Member Role: Primary Care Nurse Name: Parul Russell MD Position: [facility] Cardiology MD Member Role: Lifetime Consulting Physician Name: Ricardo Jeffrey RN Position: S RN Member Role: Primary Care Nurse Name: Brandie Metz RN Position: [facility] OB RN Member Role: Patient Care Provider Care Team Related Persons Name: ALEX KRAFT Name: YOVANA KRAFT Insurance Providers Guarantor name: BERT WEBBA Health Plan Information #: 1 Payer: MEDICARE B Payer Identifier: NA Member Number: [id number] Group Number: NA Subscriber Identifier: [id number] Relationship to Subscriber: self Coverage Type: NA Coverage Verification Date: NA Telecom: NA Address: NA
--- OUTSIDE RECORDS SUMMARY | 2025-05-17 13:15 | XMS_ITS | Clinical Summary ---
Author Organization [employer] Address [address] [place] [address] [address] [place] [address] Care Team Providers Care Cigar Packer Name Role Phone Unavailable Primary Care Provider [...] Vaccines (1 - Tdap) 1976 Mammogram 1997 RSV Patients and Patients Aged 60 years or older (1 - Risk 50-74 years 1-dose series) 2007 Zoster Vaccines (1 of 2) 2007 Dental Oral Exam 09/26/2024 03/27/2024, , 02/23/2013, [...] Recently Relevant to Health Maintenance Insurance MEDICARE [facility] MEDICAID [facility] ADULT
--- OUTSIDE RECORDS SUMMARY | 2025-05-17 13:15 | XMS_ITS | Encounter Summary ---
Author Organization [employer] Address [address] [place] [address] Care Team Providers Care Jacquard Fixer Name Role Phone Unavailable Primary Care Provider Unavailabl e Encounter Details Date Type Department Care Team (Late st Contact Info) Description 03/01/2023 Abstract [facility] [address] [place] [address] Sunny Martin, DMD [address] [place] [address] Social History Tobacco Use Types Packs/Day Years [...]
--- OUTSIDE RECORDS SUMMARY | 2025-05-17 13:16 | XMS_ITS | Patient Health Record ---
Author Organization [facility] Address [address] [place] [address] Care Team Providers Care Mechanical Integrity Engineer Name Role Phone Aaron Rob MD Primary Care Provider Angelo Caceres [phone] Reason For Referral No Information Medications Medication SIG (Take, Route, Frequency, Duration) Notes Start Date End Date Status predniSONE 1 MG Tablet 1 tablet with sea d or milk Orally Once a day Active Acetaminophen 325 MG Capsule 3 capsule a s needed Orally BID Active Metoprolol Tartrate 50 MG Tablet 1 tablet with food Orally Twice a day Active Atorvastatin Calcium 80 MG Tablet 1 tablet Orally Once a day Active Pantoprazole Sodium 40 MG Tablet Delayed Release 1 tablet Orally Once a day Active Aspir-81 81 MG Tablet Delaye d Release 1 tablet Orally Once a day Active Propylthiouracil 50 MG Tablet 1 tablet O rally three x a day Active Immunizations Vaccine Route Administration Date Status Comme nts Influenza Unknown 03/06/2018 Administered Social History Tobacco Use: Social History Observation Description Date Details (start date - stop date) Former Smoker NA - NA Social History Drugs/Alcohol: Social Info Question Answer Notes Alcohol Screen Did you have a drink containing alcohol in the past year? Yes How often did you have a drink containing alcohol in the past year? Monthly or less (1 point) How many drinks did you have on a typical day when you were drinking in the past year? 1 or 2 drinks (0 point) How often did you have 6 or more drinks on one occasion in the past year? Never (0 point) Points 1 Interpretation Negative Tobacco Use: Social Info Question Answer Notes Tobacco Use/Smoking Patient is a former smoker How long has it been since you last smoked? > 10 years Additional Details Category Social Info Options Details Miscellaneous: Marital status: Occupation: unemployed Section Notes: Nonsmoker; no sig alcohol Problems Problem Type SNOMED Code ICD Code Onset Dates Problem Status W/U Status Risk Notes Problem Screening for malignant neoplasm of colon (935905199) Encounter for screening for malignant neoplasm of colon (Z12.11) Active confirmed Problem Gastroesophageal reflux disease without esophagitis (881476285) Gastroesophageal reflux disease without esophagitis (K21.9) Active confirmed Encounters Encounter Location Date Provider Diagnosis [facility] [address] [place] [address] 04/05/2025 Angelo Lan Plan Of Treatment Future Test Test Name Order Date COLONOSCOPY 05/30/2018 Next Appt Details Provider Name:Angelo Lan , 08/01/2025 10:20:00 AM, [address], [address], [place], [address], Insurance Providers Payer Name Payer Address Payer Phone Subscriber Number Group Number Insured Name Patient Relationship to Insured Coverage Start Date Coverage End Date MEDICARE OF [place] [address] [facility] [place] [address] [id number] BERT HOOD Self - patient is the insured Medical (General) History Medical History History ICD Code Denies LA,DM,CVA,Lung disease,renal dise ase HTN CAD-with 3-V CABG as below--had CHF Rheumatoid arthritis Hyperthyroidism GERD--EGD in 03/2008--small HH, no esoph agitis, no Rubio'a Screening colonoscopy in 2007--hyperplastic polyp, sigmoid diverticulosis, small internal hemorrhoids Surgical History Surgery Date(Month/Year) 3-V CABG 04/11/2018 Back surgery
--- OUTSIDE RECORDS SUMMARY | 2025-05-17 13:17 | XMS_ITS | Patient Health Record ---
Author Organization Aaron Rob MD Address [address] [place] [id number] Care Team Providers Care Can Labeler Name Role Phone Aaron Rob Primary Care Provider [phone] Allergies No Known Allergies Results Component Value Reference Range Notes Hemoglobin A1c Reviewed date:11/06/2024 02:24:19 PM Interpretation: Performing Lab: Notes/Report: Hemoglobin A1c 7.6 Liver Panel Reviewed date:06/04/2024 12:45:25 PM Interpretation: Performing Lab:[facility], [address] [place] [address] Notes/Report: Bilirubin Total 0.9 0.0-1.0 mg/dL Bilirubin Direct 0.3 0.0-0.5 mg/dL Aspartate Amino Transferase 30 5-31 U/L Alanine Aminotransferase 16 0-31 U/L Total Protein 7.3 6.5-8.0 g/dL Albumin Level 4.0 3.5-5.0 g/dL Alkaline Phosphatase 122 39-117 U/L Glucose Fasting Reviewed date:06/04/2024 12:49:55 PM Interpretation: Performing Lab:[address] [address] Notes/Report: Glucose Fasting 109 60-99 mg/dL A fasting glucose from 100-125 mg/dl is considered impaired (pre-diabetes). Lipid Panel with Reflex Reviewed date:06/04/2024 12:45:35 PM Interpretation: Performing Lab:[address] [address] Notes/Report: Triglycerides 114 <150 mg/dL Desirable Triglyceride: [...] A1c Reviewed date:06/04/2024 12:44:41 PM Interpretation: Performing Lab:[address] [address] Notes/Report: Hemoglobin A1c % 5.3 <6.0 % [...] average glucose, using the formula of the D5Q-Wydotey Average Glucose study (ADAG), Diabetes Care, Vol.31,#8, Jan. 2007 Complete Blood Count Auto Di ff Reviewed date:10/04/2024 06:46:14 PM Interpretation: Performing Lab:[facility], [address] [place] [address] Notes/Report: White Blood Count 6.5 4.8-10.8 X10*3/uL [...] NRBC Abs Auto 0.000 0.0-0.012 X10*3/uL Comprehensive [place]. Panel Fa st Reviewed date:10/05/2024 09:05:22 AM Interpretation: Performing Lab:[facility], [address] [place] [address] Notes/Report: Sodium 144 135-145 mmol/L Potassium 3.9 [...] Panel Reviewed date:10/04/2024 06:22:42 PM Interpretation: Performing Lab:[facility], [address] [place] [address] Notes/Report: Triglycerides 101 <150 mg/dL Desirable Triglyceride: [...] T4 Reviewed date:10/04/2024 06:24:59 PM Interpretation: Performing Lab:[facility], [address] [place] [address] Notes/Report: TSH reflex Free T4 0.34 0.32-4.0 uIU/mL Microalbumin, Random Reviewed date:10/04/2024 06:28:23 PM Interpretation: Performing Lab:[address] [address] Notes/Report: Creatinine Urine 63.70 Microalbumin Urine 24.0 Microalbum/Creatinine Ratio Ur 37.6 <30 ug/mg cr Albumin/Creatinine Ratio Reference Ranges: Normal: < 30 ug/mg creatinine Microalbuminuria: 30 - 300 ug/mg creatinine Clinical Albuminuria: > 300 ug/mg creatinine Hemoglobin A1c Reviewed date:10/04/2024 06:25:17 PM Interpretation: Performing Lab:[address] [address] Notes/Report: Hemoglobin A1c % 5.8 <6.0 % [...] average glucose, using the formula of the Q9N-Nridqvt Average Glucose study (ADAG), Diabetes Care, Vol.31,#8, Jan. 2007 UA ClnCatch+Micro w/rflx Cul t Reviewed date:10/05/2024 09:05:43 AM Interpretation: Performing Lab:[address] [address] Notes/Report: Urine, Clean Catch Color Urine Yellow Appearance Urine Clear PH 6.5 5.0-9.0 Glucose Urine UA Negative Negative mg/dL Urine Blood Small (1+) Negative Specific Wentworth - Urine 1.015 1.005-1.025 Urine Protein Negative Neg-Trace mg/dL Urine Ketones Negative Negative mg/dL Nitrite Urine Negative Negative Leukocyte Esterase Urine Trace Negative RBC Urine 11-20 0-2 /HPF WBC Urine 6-10 0-5 /HPF Squamous Epithelial Cell Urine 6-10 0-2 /HPF Bacteria Urine 3+ None Seen Hyaline Casts Urine 0-2 0-2 /LPF Liver Panel Reviewed date:04/16/2025 03:56:30 PM Interpretation: Performing Lab:[facility], [address] [place] [address] Notes/Report: Bilirubin Total 0.4 0.0-1.0 mg/dL Bilirubin Direct 0.2 0.0-0.5 mg/dL Aspartate Amino Transferase 31 5-31 U/L Alanine Aminotransferase 12 0-31 U/L Total Protein 6.9 6.5-8.0 g/dL Albumin Level 3.8 3.5-5.0 g/dL Alkaline Phosphatase 125 39-117 U/L Glucose Fasting Reviewed date:04/16/2025 03:57:54 PM Interpretation: Performing Lab:[facility], [address] [place] [address] Notes/Report: Glucose Fasting 118 60-99 mg/dL A fasting glucose from 100-125 mg/dl is considered impaired (pre-diabetes). Lipid Panel with Reflex Reviewed date:04/16/2025 04:02:18 PM Interpretation: Performing Lab:[facility], [address] [place] [address] Notes/Report: Triglycerides 224 <150 mg/dL Desirable Triglyceride: [...] A1c Reviewed date:04/16/2025 12:25:34 PM Interpretation: Performing Lab:[facility], [address] [place] [address] Notes/Report: Hemoglobin A1c % 5.6 <6.0 % [...] average glucose, using the formula of the C2H-Pawzwbw Average Glucose study (ADAG), Diabetes Care, Vol.31,#8, 2007 TSH reflex Free T4 Reviewed date:07/06/2024 05:11:26 PM Interpretation: Performing Lab:[facility], [address] [place] [address] Notes/Report: TSH reflex Free T4 0.16 0.32-4.0 [...] AM Interpretation: Performing Lab: Notes/Report: Value 124 Hold Gold Reviewed date:06/04/2024 12:48:56 PM Interpretation: Performing Lab:[facility], [address] [place] [address] Notes/Report: Hold Gold See Note Specimen held untested for 24 hours; Call to request Chemistry testing. XR chest 2V Reviewed date:07/06/2024 12:50:13 PM Interpretation:BRINDA 07/06/24 Performing Lab: Notes/Report: [address] [address] XRay Report Signed Patient: Selene Barry MR#: [id number] 3611 : 1955 Acct:[id number] Age/Sex: 69 / F ADM Date: 06/29/24 Loc: HO.XRAY Attending Dr: Aaron Rob MD Ordering Physician: Aaron Rob MD Date of Service: 06/29/24 Procedure(s): XR chest 2V Accession Number(s): [id number] cc: Aaron Rob MD CLINICAL HISTORY: Acute [...] 07/02/24 1055 DD/ 1055 TD/TT: 07/02/24 1055 Sausage Mixer: [place] [address] XRay Report Signed Patient: Selene Barry MR#: [id number] 3611 : 1955 Acct:[id number] Age/Sex: 69 / F ADM Date: 06/29/24 Loc: CARMEL Attending Dr: Aaron Rob MD Ordering Physician: Aaron Rob MD Date of Service: 06/29/24 Procedure(s): XR tigist st 2V Accession Number(s): [id number] cc: Aaron Rob MD CLINICAL HISTORY: Ac [...] Grajeda MD in OV> 07/02/24 105 DD/ 105 TD/TT: 07/02/24 105 Sausage Mixer: Free T4 (Free Thyroxine) Reviewed date:07/06/2024 05:11:14 PM Interpretation: Performing Lab:[facility], [address] [place] [address] Notes/Report: Free T4 (Free Thyroxine) 1.31 0.71-1.85 ng/dL Afshan Monsivais Reviewed date:07/06/2024 01:24:48 PM Interpretation: Performing Lab:[facility], [address] [place] [address] Notes/Report: Afshan Monsivais See Note Specimen held untested for 24 hours; Call to request Chemistry testing. Afshan Monsivais Reviewed date:10/04/2024 06:20:14 PM Interpretation: Performing Lab:[facility], [address] [place] [address] Notes/Report: Afshan Monsivais See Note Specimen held untested for 24 hours; Call to request Chemistry testing. Urine Culture Reviewed date:10/05/2024 09:02:59 AM Interpretation: Performing Lab:[facility], [address] [place] [address] Notes/Report: Urine Culture No growth. XR chest 2V Reviewed date:10/19/2024 10:26:20 AM Interpretation: Performing Lab: Notes/Report: [address] [address] XRay Report Signed Patient: Selene Barry MR#: [id number] 3611 : 1955 Acct:[id number] Age/Sex: 69 / F ADM Date: 10/17/24 Loc: CARMEL Attending Dr: Aaron Rob MD Ordering Physician: Aaron Rob MD Date of Service: 10/17/24 Procedure(s): XR chest 2V Accession Number(s): [id number] cc: Aaron Rob MD CLINICAL HISTORY: MILD [...] in OV> 10/18/242154 DD/ 54 TD/TT: 10/18/242154 Sausage Mixer: [address] [address] XRay Report Signed Patient: Selene Barry MR#: [id number] 3611 : 1955 Acct:[id number] Age/Sex: 69 / F ADM Date: 10/17/24 Loc: HO.XRAY Attending Dr: Aaron Rob MD Ordering Physician: Aaron Rob MD Date of Service: 10/17/24 Procedure(s): XR tigist st 2V Accession Number(s): [id number] cc: Aaron Rob MD CLINICAL HISTORY: PR LD INTERMITTENT ASTHMA --- Additional Notes or [...] in OV> 10/18/242154 DD/ 54 TD/TT: 10/18/242154 Sausage Mixer: Complete Blood Count Auto Di ff Reviewed date:11/02/2024 12:26:56 PM Interpretation: Performing Lab:[facility], [address] [place] [address] Notes/Report: White Blood Count 7.9 4.8-10.8 X10*3/uL [...] te Reviewed date:11/02/2024 05:05:39 PM Interpretation: Performing Lab:[facility], [address] [place] [address] Notes/Report: Erythrocyte Sedimentation Rate 12 0-20 MM/HR Patients with polycythemia and many hemoglobin abnormalities may have depressed sed rates whereas patients with anemia may have elevated sed rates. Comprehensive Met. Panel Reviewed date:11/08/2024 08:01:35 AM Interpretation:BRINDA 11/06 Performing Lab:[facility], [address] [place] [address] Notes/Report: Sodium 134 135-145 mmol/L Potassium 4.3 [...] Protein Reviewed date:11/02/2024 01:00:24 PM Interpretation: Performing Lab:[facility], [address] [place] [address] Notes/Report: C Reactive Protein 1.94 < or = 0.50 mg/dL Glucose, Whole Blood Reviewed date:01/17/2025 12:33:33 PM Interpretation: Performing Lab:[facility], [address] [place] [address] Notes/Report: Glucose, Whole Blood 147 60-115 mg/dL METER # : [id number] FL guidance in OR Reviewed date:01/17/2025 12:32:59 PM Interpretation: Performing Lab: Notes/Report: [address] [address] Fluoroscopy Report Signed Patient: Selene Barry MR#: [id number] 3611 : 1955 Acct:[id number] Age/Sex: 69 / F ADM Date: 01/17/25 Loc: HO.SSS Attending Dr: Rodney Beltran MD, PhD Ordering Physician: Rodney Beltran MD, PhD Date of Service: 01/17/25 Procedure(s): FL guidance in OR Accession Number(s): [id number] cc: Aaron Rob MD; Rodney Beltran MD, [...] 01/17/25 0902 DD/ 0736 TD/TT: 01/17/25 0844 Sausage Mixer: [place] [address] Fluoroscopy Report Signed Patient: Selene Barry MR#: [id number] 3611 : 1955 Acct:[id number] Age/Sex: 69 / F ADM Date: 01/17/25 Loc: HO.SSS Attending Dr: Jessica Beltran MD, PhD Ordering Physician: Rodney Beltran MD, PhD Date of Service: 01/17/25 Procedure(s): FL guidance in OR Accession Number(s): [id number] cc: Aaron Rob MD; Rodney Beltran MD, [...] signed by Angelo Haley MD in OV> 01/17/2502 DD/ 0736 TD/TT: 01/17/25 0844 Sausage Mixer: Afshan Monsivais Reviewed date:04/16/2025 12:25:44 PM Interpretation: Performing Lab:[facility], [address] [place] [phone] Notes/Report: Afshan Monsivais See Note Specimen held untested for 24 hours; Call to request Chemistry testing. Complete Blood Count Auto Di ff Reviewed date:05/10/2025 12:15:21 PM Interpretation: Performing Lab:[facility], [address] [place] [address] Notes/Report: White Blood Count 9.6 4.8-10.8 X10*3/uL Red Blood Count 4.75 4.20-5.50 X10*6/uL Hemoglobin 13.2 12.0-16.0 g/dl Hematocrit 39.4 37.0-47.0 % Mean Corpuscular Volume 82.9 80.0-98.0 fL Mean Corpuscular Hemoglobin 27.8 27.0-33.0 pg Mean Corpuscular HGB Conc 33.5 31.0-35.0 g/dl Red Cell Distribution Width 13.0 11.0-16.0 % Platelet Count 270 160-400 X10*3/uL Mean Platelet Volume 10.0 9.4-12.3 fL Neutrophils Percent Auto 69.3 45-73 % Imm Gran Pct Auto 0.3 0.0-0.4 % Lymphocytes Percent Auto 22.9 20-40 % Monocytes Percent Auto 5.7 2-11 % Eosinophils Percent Auto 1.1 0-4 % Basophils Percent Auto 0.7 0-2 % NRBC Pct Auto 0.0 0.0-0.2 /100WBC Neutrophils Absolute Auto 6.7 2.0-8.3 x10*3/u L Imm Gran Abs Auto 0.03 0.00-0.03 X10*3/uL Lymphocytes Absolute Auto 2.2 1.2-4.9 X10*3/u L Monocytes Absolute Auto 0.6 0.1-1.2 X10*3/uL Eosinophils Absolute Auto 0.1 0.0-0.4 X10*3/u L Basophils Absolute Auto 0.1 0.0-0.2 X10*3/uL NRBC Abs Auto 0.000 0.0-0.012 X10*3/uL Prothrombin Time INR Reviewed date:05/10/2025 12:15:29 PM Interpretation: Performing Lab:[address] [address] Notes/Report: Prothrombin Time 12.1 11.2-13.5 SEC INTERNATIONAL NORM RATIO 1.0 0.9-1.1 INTERNATIONAL NORMALIZED RATIO (INR) REFERENCE RANGES Reference Range For patients not on anticoagulant therapy: 0.9 - 1.1 INR ranges for oral anticoagulant therapy: For prevention and treatment of venous thrombosis and pulmonary embolism: 2.0 - 3.0 For acute myocardial infarction with aspirin therapy: 2.0 - 3.0 For acute myocardial infarction without aspirin therapy: 3.0 - 4.0 For patients with mechanical prosthetic heart valves: 2.5 - 3.5 OBSX1 Reviewed date:05/10/2025 12:38:15 PM Interpretation: Performing Lab:[address] [address] Notes/Report: OBS1 POSITIVE NEGATIVE Comprehensive Met. Panel Reviewed date:05/10/2025 12:14:52 PM Interpretation: Performing Lab:[facility], [address] [place] [address] Notes/Report: Sodium 142 135-145 mmol/L Potassium 3.9 3.3-5.1 mmol/L Chloride 109 96-108 mmol/L Carbon Dioxide 23 22-29 mmol/L Anion Gap 14 12-20 Blood Urea Nitrogen 15 9-16 mg/dL Creatinine 0.55 0.5-1.4 mg/dL Creatinine Clr Calc Pharmacy 95.1 Provided height and weight: 160.02 cm, 75.296 kg. eGFR (calculated from the MDRD study equation) and eCrCl (calculated from the Cockcroft-Gault equation) are based on different parameters and may not yield comparable results. If eCrCl result is absurd, please check patient's height/weight. Estimated Glomerular Filt Rate > 60 Chronic Kidney Disease: Estimated GFR < 60 mL/min/1.73m2 Severe Kidney Disease: Estimated GFR < 15 mL/min/1.73m2 Glucose Random 117 60-115 mg/dL Calcium 8.9 8.4-10.2 mg/dL Bilirubin Total 0.6 0.0-1.0 mg/dL Aspartate Amino Transferase 23 5-31 U/L Alanine Aminotransferase 9 0-31 U/L Total Protein 7.6 6.5-8.0 g/dL Albumin Level 4.3 3.5-5.0 g/dL Alkaline Phosphatase 123 39-117 U/L Lactic Acid Reviewed date:05/12/2025 04:28:20 PM Interpretation: Performing Lab:[address] [address] Notes/Report: Lactic Acid 1.4 0.5-2.0 mmol/L SARS-CoV2/FLU/RSV Reviewed date:05/10/2025 12:14:32 PM Interpretation: Performing Lab:[address] [address] Notes/Report: Influenza A PCR NEGATIVE Negative Influenza B PCR NEGATIVE Negative Resp Syncy Virus RNA Qual PCR NEGATIVE Negative SARS COV2 PCR INHOUSE NEGATIVE Negative All test results must be correlated with clinical findings. Negative results do not preclude SARS-CoV2, influenza A virus, influenza B virus and/or RSV infection and should not be used as the sole basis for treatment or other patient management decisions. Negative results must be combined with clinical observations, patient history, and epidemiological information. This test has not been evaluated for monitoring treatment of infection. This test has been authorized by the FDA under an Emergency Use Authorization (EUA) for use by authorized laboratories. Testing performed on the [employer] GeneXpert utilizing real-time RT-PCR. All SARS CoV2 and positive influenza A/B results are reported to [facility]. Blood Culture (First) Reviewed date:05/16/2025 12:47:54 PM Interpretation: Performing Lab:[address] [address] Notes/Report: Blood Culture (First) No growth after 5 days. Blood Culture (Second) Reviewed date:05/16/2025 12:48:02 PM Interpretation: Performing Lab:[facility], [address] [place] [address] Notes/Report: Blood Culture (Second) No growth after [address] abdomen pelvis w con Reviewed date:05/10/2025 03:13:30 PM Interpretation: Performing Lab: Notes/Report: [address] [address] [address] Scan Report Signed Patient: Selene Barry MR#: [id number] : 1955 Acct:[id number] Age/Sex: 70 / F ADM Date: 05/10/25 Loc: .ED Attending Dr: Ordering Physician: Vanita Orantes Date of Service: 05/10/25 Procedure(s): CT abdomen pelvis w IV con Accession Number(s): [id number] cc: Aaron Rob MD; Vanita Orantes Report Number: [id number]: Total DLP = 506.00 mGy-cm Reason for Exam: lower abd pain EXAMINATION: CT ABDOMEN AND PELVIS WITH CONTRAST CLINICAL INFORMATION: lower abdominal pain, hysterectomy in March 2025 COMPARISON: July 09, 2016 TECHNIQUE: Multidetector volumetric images were obtained from the superior aspect of the liver through the pubic symphysis following administration 85 mL of Omnipaque 350 intravenous contrast. Sagittal and coronal reformatted images were obtained on the technologist's workstation. Oral contrast: No This CT examination was performed using dose optimization techniques as appropriate, variously including the following: *Automated exposure control *Adjustment of mA and/or kV according to patient size (this includes techniques or standardized protocols for targeted exams where dose is matched to indication/reason for exam; i.e. extremities or head) *Use of iterative reconstruction technique FINDINGS: LUNG BASES: The visualized lung bases are unremarkable. LIVER, GALLBLADDER, AND BILIARY TREE: The liver is normal in size, shape, and attenuation. No focal hepatic lesion or biliary ductal dilatation is present. The gallbladder is unremarkable with no evidence of radiopaque gallstones, gallbladder wall thickening, or obvious pericholecystic inflammatory changes. PANCREAS: Again seen is a punctate calcification in the tail. SPLEEN: Unremarkable. ADRENAL GLANDS: Unremarkable. KIDNEYS AND URETERS: The kidneys are normal in size, shape, and attenuation. No hydronephrosis, hydroureter, or calculi seen. No perinephric stranding. BLADDER: The bladder is mostly decompressed and thick-walled. GASTROINTESTINAL TRACT: Innumerable pseudodiverticula are present in the descending and sigmoid colon. There is mild prominence of the vascularity along the sigmoid colon and mild increased density in the mesentery. ABDOMINAL WALL: No significant hernia is appreciated. LYMPH NODES: Normal. VASCULAR: Unremarkable. PELVIC VISCERA: There are changes related to recent hysterectomy. There is fat stranding and ill-defined soft tissue density at the cuff of the vagina. There is a bilobed fluid collection with thin peripheral enhancement measuring 4.5 x 1.8 x 1.8 cm (CC by transverse by AP) extending up from that region. There is a second loculated fluid collection along the posterior right and superior margin of the bladder that measures 2.9 x 1.8 x 1.9 cm (AP by CC by transverse). This likely represents a cyst related to the right ovary. OSSEOUS STRUCTURES: Moderate to severe degenerative changes are present in the lumbar spine. There is chronic left L4 pars intra-articular's defect. There is moderate levoscoliosis. There is severe right hip osteoarthritis with mild lateral subluxation of the left femoral head. There are serpentine bands of sclerosis involving the left femoral head, somewhat sparing the posterior femoral head. There is central groundglass and minimal cystic change. There is subtle subchondral flattening and the superficial tibial bone. This is new since the prior. CT/CT abdomen pelvis w IV con IMPRESSION: Postoperative changes are identified related to recent hysterectomy. There is heterogeneous soft tissue density in the postoperative bed measuring 4.5 x 1.8 x 1.8 bilobed loculation that could represent hematoma, abscess, or seroma. There is a second 2.9 x 1.8 x 1.9 cm cystic region along the posterior superior right bladder margin is probably a right ovarian cyst. However, this could also represent a loculation with the same differential: hematoma, abscess, seroma. Diverticulosis is noted in the descending and sigmoid colon. There is mild prominence of vascularity and subtle fat stranding along the sigmoid colon. This is likely secondary to the changes related to recent hysterectomy, but a mild infectious colitis is not ruled out. 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 The left hip was unremarkable in 2017. Lumbar spine demonstrates moderate levoscoliosis, severe degenerative change, and chronic left pars defect involving L4. Bladder appears thick walled. This could be reactive related to recent surgery, but infection/cystitis is not ruled out. Fleischner guidelines were followed. Electronically signed by: Jorge Carr MD 05/10/2025 02:21 PM EST Dictated By: Jorge Carr MD Signed By: <Electronically signed by Jorge Carr MD in OV> 05/10/25 1421 DD/ 1239 TD/TT: 05/10/25 1325 Sausage Mixer: [place] [address] CT Scan Report Signed Patient: Selene Barry MR#: [id number] 3611 : 1955 Acct:[id number] Age/Sex: 70 / F ADM Date: 05/10/25 Loc: HO.ED Attending Dr: Ordering Physician: Vanita Orantes Date of Service: 05/10/25 Procedure(s): CT abd omen pelvis w IV con Accession Number(s): [id number] cc: Aaron Rob MD; Vanita Orantes Report Number: [id number]: Total DLP = 506.00 mGy-cm Reason for Exam: low er abd pain EXAMINATION: CT ABDOMEN AND PELVI S WITH CONTRAST CLINICAL INFORMATION: lower abdominal pain , hysterectomy in March 2025 COMPARISON: July 09, 2016 TECHNIQUE: Multidetector volume tric images were obtained from the superior aspect of the liver through the pubic symphysis following administration 85 mL of Omnipaque 350 intravenous contrast. Sagittal and coronal reformatted images were obtained on the technologist's workstation. Oral contrast: No This CT examination was performed using dose optimization techniques as appropriate, various ly including the following: *Automated exposure control *Adjustment of mA an d/or kV according to patient size (this includes techniques or standardized protocols for targeted exams where dose is matched to indication/reason for exam; i.e. extremities or head) *Use of iterative reconstruction technique FINDINGS: LUNG BASES: The visualized lung bases are unremarkable. LIVER, GALLBLADDER, AND BILIARY TREE: The liver is normal in size, shape, and attenuati on. No focal hepatic lesion or biliary ductal dilatation is presen t. The gallbladder is unremarkable with no evidence of radiopaque gallstones, gallbladder wall thickening, or obvious pericholecystic inflammatory changes. PANCREAS: Again seen is a punctate calcification in the tail. SPLEEN: Unremarkable. ADRENAL GLANDS: Unremarkable. KIDNEYS AND URETERS: The kidneys are normal in size, shape, and attenuation. No hydronephrosis, hydroureter, or calculi seen. No perinephric stranding. BLADDER: The bladder is mostly decompressed and thick-walled. GASTROINTESTINAL TRA CT: Innumerable pseudodiverticula are present in the descending and sigmoid colon. There is mild prominence of the vascularity along th e sigmoid colon and mild increased density in the mesentery. ABDOMINAL WALL: No significant hernia is appreciated. LYMPH NODES: Normal. VASCULAR: Unremarkable. PELVIC VISCERA: Ther e are changes related to recent hysterectomy. There is fat strandi ng and ill-defined soft tissue density at the cuff of the vagina. There is a bilobed f luid collection with thin peripheral enhancement measuring 4.5 x 1.8 x 1.8 cm (CC by transverse by AP) extending up from that region. There is a second loculated fluid collection along the posterior right and superior margin of the bladder that measures 2.9 x 1.8 x 1.9 cm (AP by CC by transverse) . This likely represents a cyst related to the right ovary. OSSEOUS STRUCTURES: Moderate to severe degenerative changes are present in the lumbar spine. There is chronic lef t L4 pars intra-articular's defect. There is moderate levoscoliosis. There is severe righ t hip osteoarthritis with mild lateral subluxation of the left femoral head. There are serpentine bands of sclerosis involving the left femoral head, somewhat sparing the posterior femoral head. There is centr al groundglass and minimal cystic change. There is subtle subchondral flattening and the superficial tibial bone. This is new since the prior. C T/CT abdomen pelvis w IV con IMPRESSION: Postoperative change s are identified related to recent hysterectomy. There is heterogeneo us soft tissue density in the postoperative bed measuring 4.5 x 1.8 x 1.8 bilobed loculation that could represent hematoma, abscess, o r seroma. There is a second 2. 9 x 1.8 x 1.9 cm cystic region along the posterior superior right bladd er margin is probably a right ovarian cyst. However, this could also represent a loculation with the same differential: hemato ma, abscess, seroma. Diverticulosis is no sukhi in the descending and sigmoid colon. There is mild prominence of vascularity and subtle fat stranding along the sigmoid colon. This is likely secondary to the changes related to recent hysterectomy, but a mild infectious colitis is not ruled out. Left femoral head avascular necrosis with minimal subchondral flattening and sever e osteoarthritis, Ficat 4. The left hip was unremarkable in 2017. Lumbar spine demonstrates moderate levoscoliosis, severe degenerative change, and chronic left pars defect involving L4. Bladder appears thic k walled. This could be reactive related to recent surgery, but infection/cystitis is not ruled out. Fleischner guideline s were followed. Electronically kristine d by: Jorge Carr MD 05/10/2025 02:21 PM [facility] Dictated By: Jorge Carr MD Signed By: <Electronically signed by Jorge Carr MD in OV> 05/10/25 1421 DD/ 1239 TD/TT: 05/10/25 1325 Sausage Mixer: Complete Blood Count Auto Di ff Reviewed date:05/12/2025 04:28:46 PM Interpretation: Performing Lab:[facility], [address] [place] [id number] Notes/Report: White Blood Count 8.8 4.8-10.8 X10*3/uL Red Blood Count 4.46 4.20-5.50 X10*6/uL Hemoglobin 12.3 12.0-16.0 g/dl Hematocrit 37.1 37.0-47.0 % Mean Corpuscular Volume 83.2 80.0-98.0 fL Mean Corpuscular Hemoglobin 27.6 27.0-33.0 pg Mean Corpuscular HGB Conc 33.2 31.0-35.0 g/dl Red Cell Distribution Width 12.9 11.0-16.0 % Platelet Count 258 160-400 X10*3/uL Mean Platelet Volume 9.9 9.4-12.3 fL Neutrophils Percent Auto 69.3 45-73 % Imm Gran Pct Auto 0.2 0.0-0.4 % Lymphocytes Percent Auto 23.1 20-40 % Monocytes Percent Auto 5.8 2-11 % Eosinophils Percent Auto 0.9 0-4 % Basophils Percent Auto 0.7 0-2 % NRBC Pct Auto 0.0 0.0-0.2 /100WBC Neutrophils Absolute Auto 6.1 2.0-8.3 x10*3/u L Imm Gran Abs Auto 0.02 0.00-0.03 X10*3/uL Lymphocytes Absolute Auto 2.0 1.2-4.9 X10*3/u L Monocytes Absolute Auto 0.5 0.1-1.2 X10*3/uL Eosinophils Absolute Auto 0.1 0.0-0.4 X10*3/u L Basophils Absolute Auto 0.1 0.0-0.2 X10*3/uL NRBC Abs Auto 0.000 0.0-0.012 X10*3/uL Reason For Referral Reason osteoporosis Diagnosis 1 Age-related osteopor osis without current pathological fracture (M81.0) Referral Organization Aaron Rob MD Referring Provider First Name Aaron Referring Provider Last Name Darron Referring Provider Speciality Internal edicine Referred Provider Angelo Ramires Referred Provider Specialty Endocrinolog y General Notes Ursula Tracy 0 07/26/2024 03:26:47 PM >info faxed with [facility] [place] [place] spine Center office note Referral Priority Routine [...] W/U Status Risk Notes Problem Hypercoagulable state (48985313) Secondary hypercoagulable state (289.82) Active confirmed Problem Spinal stenosis (37747731) Spinal stenosis (724.00) Active confirmed Problem 29307214 Age-related osteoporosis without current pathological fracture (M81.0) Active confirmed Problem 595069519 Thyroid nodule (E04.1) Active confirm ed Problem 04912956 Lymphocytosis (D72.820) Active confirmed Problem 433990289226653 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.52) Active confirmed Problem 32591136 Lumbar disc dise ase (M51.9) Active confirmed Problem 51935959 Essential hypert ension (I10) Active confirmed Problem 938982057 Mild intermitten t asthma without complication (J45.20) Active confirmed Problem 220786993 Chronic systolic congestive heart failure (I50.22) Active confirmed Problem 58839060 Hyperthyroidism (E05.90) Active confirmed Problem 656312528 Rheumatoid arthr itis involving multiple sites, 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) Active confirmed Problem 966278507 Graves disease (E05.00) Active confirmed Problem 295089741 History of coron marie artery bypass graft (Z95.1) Active confirmed Problem 9253790 Thyromegaly (E04.9) Active confirmed Problem 079241687 Non-rheumatic mi tral regurgitation (I34.0) Active confirmed Problem 289881047 Thyroid cancer (C73) Active confirmed Problem 744837168 Vaginal bleeding (N93.9) Active confirmed Problem 68542701 Sciatica of righ t side (M54.31) Active confirmed Problem 11458468 Hypercholesterol emia (E78.00) Active confirmed Problem 8166962252461 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) Active confirmed Problem 095867057 Atrophy of vagin a (N95.2) Active confirmed Problem History of hysterectomy (436985093) History of hysterectomy (Z90.710) Active confirmed Problem 838349700 Vaginal prolapse (N81.10) Active confirmed Problem Type II diabetes mellitus without complication (135924579) Type 2 diabetes mellitus treated without insulin (E11.9) Active confirmed Problem 3991288 Prediabetes (R73.09) Inactive confirmed Vital Signs Blood pressure diastolic 80 mm Hg 04/23/2025 Height 63.5 in 04/23/2025 Blood pressure systolic 144 mm Hg 04/23/2025 Weight 167 lbs 04/23/2025 BMI 29.12 kg/m2 04/23/2025 Encounters Encounter Location Date Provider Diagnosis Aaron Rob MD [address] [place] [address] [id number] 06/04/2024 Aaron Rob Prediabetes R73.09 a nd Hypercholesterolemia E78.00 Aaron Rob MD [address] [place] [address] Drive [address] [place] [address] [id number] 10/04/2024 Aaron Rob Essential hypertensi on I10 ; Prediabetes R73.09 ; Lymphocytosis D72.820 ; Chronic systolic congestive heart failure I50.22 ; Hyperthyroidism E05.90 and Hypercholesterolemia E78.00 Aaron Rob MD [address] [place] [address] Drive [address] [place] [address] [id number] 04/16/2025 Aaron Rob Type 2 diabetes santhosh itus treated without insulin E11.9 ; Encounter for administration of vaccine Z23 and Hypercholesterolemia E78.00 Aaron Rob MD [address] [place] [address] [id number] 06/11/2024 Aaron Rob Vaginal prolapse N81 .10 ; Essential hypertension I10 and Rheumatoid arthritis involving multiple sites, unspecified rheumatoid factor presence M06.9 Aaron Rob MD [address] [place] [address] [id number] 06/21/2024 Aaron Rob Mild intermittent as thma without complication J45.20 Aaron Rob MD [address] [place] [address] [id number] 06/29/2024 Aaron Rob Acute URI J06.9 Aaron Rob MD [address] [place] [address] [id number] 07/06/2024 Aaron Rob Mild intermittent as thma without complication J45.20 ; Hyperthyroidism E05.90 and Pneumonitis, interstitial J84.89 Aaron Rob MD [address] [place] [address] [id number] 10/11/2024 Aaron Rob Atrophy of vagina N9 5.2 ; Vaginal prolapse N81.10 ; Hematuria R31.9 ; Essential hypertension I10 ; Prediabetes R73.09 ; Mild intermittent asthma without complication J45.20 ; Chronic systolic congestive heart failure I50.22 ; Graves disease E05.00 and Hypercholesterolemia E78.00 Aaron Rob MD [address] [place] [address] [id number] 11/06/2024 Aaron Rob Essential hypertensi on I10 ; Rheumatoid arthritis involving multiple sites, unspecified rheumatoid factor presence M06.9 and Type 2 diabetes mellitus treated without insulin E11.9 Aaron Rob MD [address] [place] [address] [id number] 11/13/2024 Aaron Rob Type 2 diabetes santhosh itus treated without insulin E11.9 Aaron Rob MD [address] [place] [address] [id number] 11/29/2024 Aaron Rob Type 2 diabetes santhosh itus treated without insulin E11.9 and Headache, unspecified R51.9 Aaron Rob MD [address] [place] [address] [id number] 12/14/2024 Aaron Rob Type 2 diabetes santhosh itus treated without insulin E11.9 and Rectal bleeding K62.5 Aaron Rob MD [address] [place] [address] [id number] 01/14/2025 Aaron Rob Type 2 diabetes santhosh itus treated without insulin E11.9 ; Lumbar disc disease M51.9 and Essential hypertension I10 Aaron Rob MD [address] [place] [address] [id number] 01/25/2025 Aaron Rob Type 2 diabetes santhosh itus treated without insulin E11.9 and Lumbar disc disease M51.9 Aaron Rob MD [address] [place] [address] [id number] 04/23/2025 Aaron Rob History of hysterect ravinder Z90.710 ; Vaginal bleeding N93.9 ; Essential hypertension I10 and 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 Aaron Rob MD [address] [place] [address] [id number] 05/12/2025 Aaron Rob MD [address] [place] [address] [id number] 11/29/2024 Aaron Rob MD [address] [place] [address] [id number] 12/03/2024 Aaron Rob MD [address] [place] [address] [id number] 12/03/2024 Aaron Rob MD [address] [place] [address] [id number] 12/04/2024 Aaron Rob MD [address] [place] [address] [id number] 12/14/2024 Aaron Rob MD [address] [place] [address] [id number] 12/17/2024 Aaron Rob MD [address] [place] [address] [id number] 01/17/2025 Aaron Rob Assessments Encounter Date Diagnosis [...] J06.9) THE XRAY ORDER WAS FAXED TO [facility] [place] [place] PATIENT REG. PATIENT AWARE, patient verbalized [...] treated without insulin (ICD-10 - E11.9) consult para educator, patient will continue current regiment 11/29/2024 [...] Z90.710) need notes from dr wolfe at [facility] 04/23/2025 Vaginal bleeding (ICD-10 - [...] 08/03/2024 Next Appt Details Provider Name:Aaron deleon, 05/21/2025 10:15:00 AM, [address] [place] [address], [address], [place], [phone], Provider Name:Aaron deleon, 10/08/2025 07:45:00 AM, [address] [place] [address], [address], [place], [place], [phone], Provider Name:Aaron deleon, 10/15/2025 09:30:00 AM, [address], [address], [place], [place], [phone], Insurance Providers Payer Name Payer Address Payer Phone Subscriber Number Group Number Insured Name Patient Relationship to Insured Coverage Start Date Coverage End Date [employer] [address] [place] [address] [id number] Selene Valdovinos Self - patient is the insured Medical (General) History Medical History History ICD Code colonoscopy - 03/2008 hyperp lastic polyp due 03/[address] Mcgarry; Colonoscopy done 07/14/[address] 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
--- NOTE | 2025-05-17 13:27 | AM.OFFVISNUR ---
Intake Visit Reasons: toradol Allergies No Known Allergies (No Known Allergies*) Allergy (Verified 05/10/25 10:50) Office Meds ketorolac 30 mg/mL (1 mL) injection solution Performing Provider: Katelynn Garcia MD Performing Location: [facility] Administered by: Vee Lamar RN on 05/17/25 13:36 Dose Route Admin Location Dispensed Lot Number Expiration Date NDC [employer] 30 mg IM left upper arm 1 mL [id number] 09/24/25 70415-412-21 [place] [employer] Total Dispensed Waste 1 mL 0 % Comments: Patient tolerated injection of ketorolac to left upper arm. Site was clean, dry, and intact. Patient was informed to notify us if there are any side effects or adverse reactions. Assessment & Plan Assessment & Plan Orders: Orders AMB Ketorolac Injection Today M70.62 - Trochanteric bursitis, left hip Coding
== END 2025-05-17 13:34 | disposition home or self-care (01) ==
LOC: HO.RHES 12:54
PROVIDERS: PCP Internal Medicine; Visit Provider Student in an Organized Health Care Education/Training Program
DX: M70.62 Trochanteric bursitis, left hip (principal)

== ENCOUNTER → 2025-05-17 12:53 | Outpatient (BNVA) | payer MEDICARE, SELFPAY | PROVIDERS: PCP Internal Medicine; Visit Provider Student in an Organized Health Care Education/Training Program | DX: M70.62 Trochanteric bursitis, left hip (principal); Z79.1 Long term (current) use of non-steroidal anti-inflammatories (NSAID) | CPT/HCPCS: 96372; J1885 ==

== ENCOUNTER 2025-05-22 14:49 | Outpatient (REF) | payer MEDICARE, SELFPAY ==
--- NOTE | ~2025-05-22 | XR_ITS ---
EXAMINATION: XR LUMBAR SPINE 4 OR MORE VIEWS CLINICAL INFORMATION: Z98.890 - Other specified postprocedural states COMPARISON: Radiographs on February 03, 2024. TECHNIQUE: AP and lateral views of the lumbar spine were obtained. Lateral views were obtained in flexion, extension, and neutral positions. FINDINGS: The numbering of the vertebrae follows the same from previous radiograph in 2023. 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 Rotatory levoscoliosis. Redemonstration of loss of disc height at multiple levels extending from L2-L3 through the lumbosacral region. Mild anterior wedging deformity of T12 and L1 vertebral bodies and posterior wedging deformity of L5 vertebral body appears similar to 202. Minimal grade 1 retrolisthesis of L1 on L2 on the neutral and extension positions. Minimal grade 1 anterolisthesis of L5 on L6 on neutral, flexion and extension positions. No worsening listhesis with flexion or extension. XR/XR lumbar spine 4V min IMPRESSION: Multilevel degenerative changes, most severe at L2-3 through the lumbosacral junction, similar to 2023. Electronically signed by: Isra Cordero MD 05/22/2025 04:21 PM [facility]
== END 2025-05-22 14:50 | disposition home or self-care (01) ==
LOC: HO.HOSX 14:49
PROVIDERS: PCP Internal Medicine; Visit Provider Physician Assistant
DX: Z98.890 Other specified postprocedural states (principal)
CPT/HCPCS: 72110; 99212

== ENCOUNTER 2025-05-22 14:49 | Outpatient (AMB) | payer MEDICARE, SELFPAY ==
--- NOTE | 2025-05-22 15:14 | A.SPINEOV_ITS ---
Intake Visit Reasons: LBP Intake Note: Ms. Barry is here today c/o low back pain. [employer] Laboratory Technician Required: No Allergies No Known Allergies (No Known Allergies*) Allergy (Verified 05/10/25 10:50) Assessment & Plan Assessment & Plan (1) Status post lumbar spine surgery for decompression of spinal cord: Code(s): Z98.890 - Other specified postprocedural states Category: Surgical Plan Operation: Left L5 Laminotomy Selene is a pleasant 70-year-old female comes in today in follow-up. She had the above-mentioned procedure with Dr. Beltran on 01/17/25. To recap during her last office visit she reported overall good resolution of her left lower extremity pain. Unfortunately she is now experiencing a different type of pain that starts near her left lateral hip and shoots down the lateral aspect of her left leg terminating just below the knee. She states that the pain feels like a burning pain, and has been ongoing for about 4 weeks. She is concerned that she may have a recurrent issue in her low back. She was evaluated in her primary care physician's office for this issue, and was given an injection of what sounds like cortisone are Toradol, which temporary relieved her pain for a couple of days, however it returned shortly thereafter. She is concerned that the pain seems to be worsening, and no bkus-[id number] medications that she is taking seem to help it very much. She is accompanied by her daughter today who helps provide some of her history. Her daughter states that overall functionally she has declined since her last office visit. She is only able to stand for short periods of time, and activity such as cooking in the kitchen have become much more difficult for her. She denies any numbness/weakness associated with her pain, however it does report that she has been walking with her cane again. No new neurological deficits on examination. Slightly antalgic gait with ambulation favoring the right-hand side. Posterior incision site is closed and well healed. Given that Selene is experiencing a new onset of pain which sounds like nerve pain and is in a different distribution in the pain that she had prior to surgery, I believe we should send her for a set of dynamic lumbar spine x-rays to ensure that there is no instability secondary to her laminotomy. If her her x-ray imaging is unremarkable, I will order an updated MRI of the lumbar spine to evaluate for any new or worsening nerve impingement given that she has only a few months out from surgery. Osmel Beltran MD,PhD [facility] Orders: Orders XR lumbar spine 4V min Today Z98.890 - Other specified postprocedural states Coding Level of Care Code Est Pt Level 2 (93453) Diagnoses Status post lumbar spine surgery for decompression of spinal cord Z98.890
--- OUTSIDE RECORDS SUMMARY | 2025-05-22 17:30 | XMS_ITS | Encounter Summary ---
Author Organization [employer] Address [address] [facility] 7[address] [place] [address] Care Team Providers Care Marketing Financial Analyst Name Role Phone Unavailable Primary Care Provider Unavailabl e Encounter Details Date Type Department Care Team (Late st Contact Info) Description 03/01/[address] [facility] ADULT DENTAL [address] [place] [address] Sunny Martin, DMD [address] [place] [address] Social History Tobacco Use Types Packs/Day Years [...]
--- OUTSIDE RECORDS SUMMARY | 2025-05-22 17:30 | XMS_ITS | Clinical Summary ---
Author Organization [employer] Address [address] [place] [address] 7[address] [place] [address] Care Team Providers Care Acidity Tester Name Role Phone Unavailable Primary Care [...] Recently Relevant to Health Maintenance Insurance MEDICARE [facility] MEDICAID [facility] ADULT
== END 2025-05-22 15:54 | disposition home or self-care (01) ==
LOC: HO.HNS 14:50
PROVIDERS: PCP Internal Medicine; Visit Provider Physician Assistant
DX: Z98.890 Other specified postprocedural states (principal)
CPT/HCPCS: 99212

== ENCOUNTER → 2025-05-22 15:43 | Outpatient (BNV) | payer MEDICARE, SELFPAY | PROVIDERS: PCP Internal Medicine; Visit Provider Radiology Body Imaging | DX: M47.816 Spondylosis without myelopathy or radiculopathy, lumbar region (principal); Z98.890 Other specified postprocedural states | CPT/HCPCS: 72110 ==

== ENCOUNTER → 2025-06-01 07:15 | Outpatient (BNV) | payer MEDICARE, SELFPAY | PROVIDERS: PCP Internal Medicine; Visit Provider Radiology Diagnostic Radiology | DX: M54.16 Radiculopathy, lumbar region (principal); M51.369 Other intervertebral disc degeneration, lumbar region without mention of lumbar back pain or lower extremity pain | CPT/HCPCS: 72148 ==

== ENCOUNTER 2025-06-01 07:16 | Outpatient (REF) | payer MEDICARE, SELFPAY ==
--- NOTE | ~2025-06-01 | MR_ITS ---
CLINICAL HISTORY: M54.16 - Radiculopathy, lumbar region MR of the lumbar spine without contrast Comparison: DX/SR - XR LUMBAR SPINE 4 OR MORE VIEWS - 05/22/25 15:[address]/SR - CT LUMBAR SPINE WITHOUT IV CONTRAST - 05/11/24 13:18 EST MR/SR - MR LUMBAR SPINE WITHOUT IV CONTRAST - 03/14/24 20:11 EDT DX/SR - XR LUMBAR SPINE 4 OR MORE VIEWS - 02/03/24 10:14 EDT Findings: There are 6 kba-bka-pihkhrv lumbar-type vertebra. There is moderate levocurvature with the apex L3/L4. There is left lateral subluxation L4 on L5 by up to 1.3 cm. There is right lateral subluxation of L5 upon the transitional vertebra by up to 1.0 cm. 2 mm retrolisthesis of L1 on L2. 1 mm anterolisthesis of L2 on L3. 5 mm anterolisthesis of L5 upon the transitional vertebra. There is multilevel Modic type 2 change. There is a trace amount edema within the L4 vertebra, presumed to be degenerative. No cord expansion or abnormal signal intensity. The conus medullaris terminates at L2, which is the lower limit of normal. The cauda equina is unremarkable. Moderate to severe paraspinal muscular atrophy, asymmetric. There is edema within the subcutaneous fat. 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 T12/L1: 3 mm disc bulge. Moderate facet joint and ligamentum flavum hypertrophy. Mild central canal stenosis. No right and mild to moderate left lateral recess stenosis. No right and mild left foraminal stenosis. L1/L2: 1.0 cm right paracentral disc protrusion with concurrent 5 mm broad-based disc bulge. Moderate facet joint and ligamentum flavum hypertrophy. Severe central canal stenosis. Severe right and no left lateral recess stenosis. Mild right and no left foraminal stenosis. L2/L3: 4 mm broad-based disc bulge. Moderate to severe facet joint and ligamentum flavum hypertrophy. Moderate central canal stenosis. Mild right and severe left lateral recess stenosis. Juqd-dq-eaziibjp right and mild left foraminal stenosis. L3/L4: 3 mm broad-based disc bulge. Severe facet joint and ligamentum flavum hypertrophy. Moderate central canal stenosis. Severe right and moderate left lateral recess stenosis. Severe right and no left foraminal stenosis. L4/L5: Postsurgical change with resection of the spinous process. The lamina are intact. There is disc desiccation with partial osseous fusion of the vertebra. There is a right paracentral disc protrusion measuring 3 mm. Severe facet joint hypertrophy. Qjzj-og-udguieus central canal stenosis. Severe bilateral lateral recess stenosis. Moderate to severe right and eqru-tj-aefgajol left foraminal stenosis. L5/transitional vertebra: Status post laminectomies. Uncovering of the disc with 7 mm disc bulge. Severe facet joint hypertrophy. Moderate to severe central canal stenosis greater to the left of midline. Severe bilateral lateral recess stenosis, left greater than right. Xalv-ed-mcmizhvl right and severe left foraminal stenosis. Transitional vertebra/1st sacral vertebra: Disc desiccation a trace amount of disc seen to the right of midline measuring 2 mm. Moderate to severe facet joint hypertrophy. Mild central canal stenosis. Severe bilateral lateral recess stenosis. Moderate to severe right severe left foraminal stenosis. Impression: Severe multilevel degenerative change, detailed above. This document has been electronically signed by: Lillian Dodson MD on 06/05/2025 16:01:54
--- OUTSIDE RECORDS SUMMARY | 2025-06-01 07:19 | XMS_ITS | Encounter Summary ---
Author Organization [employer] Address [address] [facility] [address] [place] [address] Care Team Providers Care Revenue Cycle Consultant Name Role Phone Unavailable Primary Care Provider Unavailabl e Encounter Details Date Type Department Care Team (Late st Contact Info) Description 03/01/2023 Abstract [facility] ADULT DENTAL [address] [place] [address] Sunny Martin, DMD [address] [place] [address] Social History Tobacco Use Types Packs/Day Years [...]
--- OUTSIDE RECORDS SUMMARY | 2025-06-01 07:19 | XMS_ITS | Clinical Summary ---
Author Organization [employer] Address [address] [place] [address] 7[address] [place] [address] Care Team Providers Care Mass Spectroscopist Name Role Phone Unavailable Primary Care Provider [...] Recently Relevant to Health Maintenance Insurance [facility] MEDICAID [facility] ADULT
== END 2025-06-01 07:17 | disposition home or self-care (01) ==
LOC: HO.MRI 07:16
PROVIDERS: PCP Internal Medicine; Visit Provider Physician Assistant
DX: M54.16 Radiculopathy, lumbar region (principal)
CPT/HCPCS: 72148

== ENCOUNTER 2025-06-03 08:43 | Outpatient (AMB) | payer MEDICARE, MEDICAID, SELFPAY ==
--- NOTE | 2025-06-03 08:54 | A.OFFVIS_ITS ---
Intake Intake Visit Reasons: 60 min Compliance Investigator Required: No Accompanied by: Self / Same As Patient Allergies No Known Allergies (No Known Allergies*) Allergy (Verified 05/10/25 10:50) HPI Comprehensive Diabetes Asmnt Most Recent Diabetes Results: Hemoglobin A1c 5.4 % 12/10/19 Microalb/Creat Ratio, (<30) 37.6 ug/mg cr H 10/04/24 Cholesterol, (<200) 112 mg/dL 04/16/25 HDL Cholesterol, (>40) 29 mg/dL L 04/16/25 Triglycerides, (<150) 224 mg/dL H 04/16/25 Creatinine, (0.5-1.4) 0.55 mg/dL 05/10/25 BUN, (9-16) 15 mg/dL 05/10/25 Sodium, (135-145) 142 mmol/L 05/10/25 Potassium, (3.3-5.1) 3.9 mmol/L 05/10/25 Chloride, (96-108) 109 mmol/L H 05/10/25 Carbon Dioxide, (22-29) 23 mmol/L 05/10/25 Calcium, (8.4-10.2) 8.9 mg/dL 05/10/25 AST, (5-31) 23 U/L 05/10/25 ALT, (0-31) 9 U/L 05/10/25 Total Protein, (6.5-8.0) 7.6 g/dL 05/10/25 Albumin, (3.5-5.0) 4.3 g/dL 05/10/25 [facility] Medical History Rheumatoid arthritis Osteopenia Scoliosis Long-term use of immunosuppressant medication Personal history of COVID-19 Hx of thyroid cancer Non-rheumatic mitral regurgitation Essential hypertension Atherosclerotic cardiovascular disease correction 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 Seropositive rheumatoid arthritis Coronary arteriosclerosis Surgical History Hx of thyroidectomy (~2019) Hx of total knee replacement (06/22/22) Hx of bilateral cataract extraction Hx of colonoscopy History of back surgery Status post coronary artery bypass graft Family History Mother HTN (hypertension) Social History Household Members: Spouse Housing: Apartment Are you a primary patient care technician to a significant other at home: No Do you presently have visiting nurse or other home services: No 75 years or older and lives alone: No Alcohol intake: current Alcohol intake frequency: holidays/special occasions only Alcohol type: wine Comment: bathroom only, aware of trip hazards Patient Tobacco Use Status: Former Tobacco user Tobacco use type: Cigarette Female Reproductive History Menstrual Age of Menarche: 12 Assessment & Plan Assessment & Plan (1) Diabetes: Code(s): E11.9 - Type 2 diabetes mellitus without complications Plan: Diabetes self-management education and support participation record Assessment/scale: 1= needs instructed? 2= needs review? 3= comprehend keep point? 4= demonstrates understanding/ competent? NC= Not Covered Topics Learning Objective: Initial visit Initial or post srvc Initial or post srvc Initial or post srvc Initial or post srvc Initial or post srvc Post srvc Comments Pre Edu-assessment/plan Outcome or reassess Outcome or reassess Outcome or reassess Outcome or reassess Outcome or reassess Outcome or reassess Diabetes pathophysiology 1 3 Healthy eating 1 3 Being active 1 3 Taking medication 1 2 Monitoring glucose 1 3 Acute complication 1 3 Chronic complicated 1 3 Lifestyle and healthy coping 1 3 Diabetes distress in support 1 3 ?Diabetes pathophysiology: ?Defined diabetes med identify own type of diabetes; list 3 options for treating diabetes Healthy eating: ?Described effect of type, amount and ?timing of food on blood glucose; list 3 methods for planning meal Being active: ?State effect of exercise on blood glucose level Taking medication: ?State effect of diabetes medications on diabetes; name diabetes medications taking, action and side effects Monitoring glucose: ?Identify recommended blood glucose targets and personal target Acute complication: ?List symptoms and treatment of hyper and hypoglycemia, DKA, sick day guidelines and guidelines for severe weather or situations of crisis and diabetes supply manage Chronic complication: ?To find the relationship of blood glucose levels to long- term complications of diabetes in screening and preventative measures Lifestyle and healthy coping: ?Described lifestyle and healthy coping strategies to rule out diabetes self-management Diabetes to stress and support: ?Recognize Diabetes to stress and be able to identified support options Learning objectives: The patient was provided with verbal and written education on the following topics as outlined below. The patient met all learning objectives and was able to verbalize understanding and provide teach back of education topics discussed . The patient was provided with the opportunity to ask questions and all questions were answered. Patient Assessment Assess patient education level/literacy/barriers, patient's A1c on 04/16/2025 5.6%, patient's A1c in September 2024 5.8% Patient was diagnosed with diabetes when on prednisone for rheumatoid arthritis She no longer taking prednisone Exercise Medical clearance Effect of exercise on blood sugar Start slowly and gradually increase pace/duration over time Goal amount of exercise Checking blood glucose/have a source of carbs with you Diabetes Complications: ?Nephropathy :Kidney Disease ?diabetes can damage the kidneys, which is not only can cause them to fail but can make them lose their ability to filter waste from the blood? ?Retinopathy: Eye complications ?Retinopathy? is the commonest long-term complication of diabetes. It is leading cause of blindness Besides, Retinopathy- People with diabetes? are also prone to cataract and Glaucoma. ?Neuropathy: Nerve damage -It involves temporary or permanent damage to nerve tissue. Nerve tissue gets injured mainly due to decreased blood flow and rise in blood glucose levels. This damage can lead to pain , or loss of sensation it can also include sexual dysfunction in both men and women ? Infections poor healing: People with diabetes? have increased susceptibility to various infections, such as? pneumonias, pyelonephritis, carbuncles and diabetic ulcers. This may be due to poor blood supply, reduced cellular immunity or hyperglycemia. ?Heart Disease And Stroke: People with diabetes are four times more prone to develop Heart disease than those who do not have diabetes ?Depression: Feeling down once in awhile is normal, but some people feel sadness that just won't go away. Life for them seems hopeless. Feeling this way most of the day for two weeks or more is a sign of serious depression ?Gum Disease: People get gum disease when plaque destroys the gums and bone around the teeth. People with diabetes can get gum disease from having high blood glucose levels for a long time Foot problems most often happen when there is nerve damage, also called neuropathy. This can cause tingling, pain (burning or stinging), or weakness in the foot. It can also cause loss of feeling in the foot, so you can injure it and not know it. Poor blood flow or changes in the shape of your feet or toes may also cause problems. Take good care of your feet. Check them daily, and see your doctor right away if you see any signs of foot problems. Do not go barefoot, indoors or outdoors. Lifestyle * Work * Travel * Stress management * Problem solving Know your goals * A1C * Blood sugar targets * Blood pressure * Cholesterol/LDL Urine microalbumin Smart Goal Assessment:Patient will test glucose at various times of the day, if after meals waiting at least 2 hours post meal Pt met goal 50% New Goal:? Patient will follow-up with diabetes education as needed Educational Materials: The patient was provided with the following written educational materials: ADCES 7 Healthy Behaviors Reducing Risks handout Patient Response to instructions: Comprehension of Instructions: good Readiness to make changes: action How confident they feel about making changes: Positive Letter of completion of diabetes Education program will be sent to referring provider Portions of this note were created using voice recognition software, please excuse any words or phrases that may have been misinterpreted. Patient Instructions: Include regular daily activity. ADA recommends 30 minutes of exercise 5 days a week. Weight loss talk to PCP or Extension Specialist before starting new plan. Test blood sugar as directed; Fasting and 2hpp largest meal. Watch trends in results. Utilize results and to assess how food, physical activity and medications affect blood sugar results. Bring glucometer or CGM to next visit. Be knowledgeable about diabetes medication, its action, side effects, efficacy, toxicity, prescribed dosage, appropriate timing and frequency of administration, effect of missed and delayed doses and instructions for storage, travel and safety. Problem solving techniques to monitor hypo/hyperglycemia episodes and treatments. Reduce risk reduction behaviors, smoking cessation, regular eye, foot and dental examinations. Coding Level of Care Code Est Pt Level 1 (59285) Diagnoses Diabetes E11.9
== END 2025-06-03 09:27 | disposition home or self-care (01) ==
LOC: HO.ENCR 08:44
PROVIDERS: PCP Internal Medicine; Visit Provider Registered Nurse Diabetes Educator
DX: E11.9 Type 2 diabetes mellitus without complications (principal)

== ENCOUNTER → 2025-06-03 08:43 | Outpatient (BNVA) | payer MEDICARE, SELFPAY | PROVIDERS: PCP Internal Medicine; Visit Provider Registered Nurse Diabetes Educator | DX: E11.9 Type 2 diabetes mellitus without complications (principal) | CPT/HCPCS: 99211 ==

== ENCOUNTER 2025-06-06 12:42 | Outpatient (AMB) | payer MEDICARE, SELFPAY ==
--- OUTSIDE RECORDS SUMMARY | 2024-12-14 05:30 | XMS_ITS ---
Author Organization Aaron Rob MD Address [address] [place] [phone] Care Team Providers Care Director Semiconductor Name Role Phone Aaron Rob Primary Care Provider [phone] Allergies No Known Allergies Results Component Value [...] Omeprazole 20 MG Take 1 capsule by [facility] once daily for 90 Active Docusate Sodium [...] kg/m2 12/14/2024 weight is down 4 pounds [facility] e 11-29-24 Encounters Encounter Location Date Provider Diagnosis Aaron Rob MD [address] [place] [address] [address] [place], [place] [phone] 12/14/2024 Aaron Rob Type 2 diabetes mellitus [...] 4 Weeks, Reason: Provider Name:Aaron Atkinson ier, 06/18/2025 11:30:00 AM, [address] [place] [address], Suite [facility], [place], [place], [phone], Provider Name:Aaron Atkinson ier, 10/08/2025 07:45:00 AM, [address] [place] [address], Suite [facility], [place], [place], [phone], Provider Name:Aaron Atkinson ier, 10/15/2025 09:30:00 AM, [address] [place] [address], [place] [address], [place], [place], [phone], Progress Notes * Gian BARRYwhitneyDOB: [birth year] (69 yo F)Acc No.[id number]:12/14/2024 Progress Notes Patient: Selene EASTON Provider: Josh Rob MD :1955 A ge:69 Y S ex:Female Date:12/14/2024 Address:[address] [place] [phone] Subjective: * Chief Complaints: * 2 weekAccompanied [...] 0 12/14/2024 Generated for Printi ng/Faesperanzag/eTransmitting on: 1 08/07/2024 07:14 PM EST History and Physical Notes * [...]
--- OUTSIDE RECORDS SUMMARY | 2024-12-14 05:57 | XMS_ITS ---
Author Organization Aaron Rob MD Address 10 [facility] [address] [place] [phone] Care Team Providers Care Internal Audit Senior Manager Name Role Phone Aaron Rob Primary Care Provider REASON FOR VISIT SURGERY CLERANCE NOTE Encounters Encounter Location Date Provider Diagnosis Aaron Rob MD [address] [place] [address] [place] [phone] 12/14/2024 Aaron Rob Plan Of Treatment Next Appt Details Provider Name:Aaron deleon, 06/18/2025 11:30:00 AM, [address] [place] [address], [address], [phone], Provider Name:Aaron deleon, 10/08/2025 07:45:00 AM, [address] [place] [address], [address], [phone], Provider Name:Aaron Edi Avelinaluz marina adrienne, 10/15/2025 09:30:00 AM, [address], [address], [place], [place], [phone], Progress Notes * Selene BARRYDOB: [birth year] (69 yo F)Acc No.[id number]:12/14/2024 Patient: Selene EASTON :1955 A ge:69 Y S ex:Female Address:[address] [place] [phone] * true * Date: Generated for Julius pittman/Fito/Dionnaitting on: 08/07/2024 07:16 PM EST
--- OUTSIDE RECORDS SUMMARY | 2024-12-17 04:30 | XMS_ITS ---
Author Organization Aaron Rob MD Address [address] [place] [phone] Care Team Providers Care Referral Rn Name Role Phone Aaron Rob Primary Care Provider REASON FOR VISIT sick from Metformin Medications Medication SIG (Take, Route, Frequency, Duration) Notes Start Date End Date Status Januvia 50 MG 1 tab Orally daily for 30 days 12/17 Active Encounters Encounter Location Date Provider Diagnosis Aaron Rob MD 10 [facility] [address] [place] [phone] 12/17/2024 Aaron Rob Plan Of Treatment Medication Medication Name Sig Start Date Stop Date Notes Januvia 50 MG 1 tab Orally daily for 30 days 12/17/2024 Next Appt Details Provider Name:Aaron deleon, 06/18/2025 11:30:00 AM, [address] [place] [address], [address] [place] [address], [phone], Provider Name:Aaron Atkinson adrienne, 10/08/2025 07:45:00 AM, 10 [facility], [address], [place], [phone], Provider Name:Aarno Atkinson allenr, 10/15/2025 09:30:00 AM, 10 [facility], [address], [place], [phone], Progress Notes * Selene BARRYDOB: [birth year] (69 yo F)Acc No.[id number]:12/17/2024 Patient: Nohemi Selene MARIE :1955 A ge:69 Y S ex:Female Address:[address] [place] [phone] * Refills Start Januvia Tablet, 50 MG, Orally, 30 Tablet, 1 tab, daily, 30 days, Refills=5 * true * Date: Generated for Julius pittman/Fito/eTransmitting on: 1 08/07/2024 07:13 PM EST
--- OUTSIDE RECORDS SUMMARY | 2025-01-14 04:00 | XMS_ITS ---
Author Organization Aaron Rob MD Address [address] [place] [phone] Care Team Providers Care Wood Drilling Machine Operator Name Role Phone Aaron Rob [...] Omeprazole 20 MG Take 1 capsule by [facility] once daily for 90 Active Januvia 50 [...] Date Provider Diagnosis Aaron Rob MD 10 [facility] [address] [place], [place] [phone] 01/14/2025 Aaron Rob Type 2 diabetes mellitus [...] 11:30:00 AM, [address], [address], [place], [place], [phone], Provider Name:Aaron Atkinson ier, 10/08/2025 07:45:00 AM, [address], [address], [place], [place], [phone], Provider Name:Aaron Atkinson ier, 10/15/2025 09:30:00 AM, [address] [facility] [address], Suite [facility], [place], [place], [phone], Progress Notes * BARRYSelene GALLEGOSDOB: [birth year] (69 yo F)Acc No.[id number]:01/14/2025 Progress Notes Patient: Selene EASTON Provider: Josh Rob MD :1955 A ge:69 Y S ex:Female Date:01/14/2025 Address:[address] [place] [phone] Subjective: * Chief Complaints: * 4 week [...] MD Date: 0 01/14/2025 Generated for Julius pittman/Fito/eTronelitting on: 1 08/07/2024 07:13 PM EST History and Physical Notes * [...]
--- OUTSIDE RECORDS SUMMARY | 2025-01-17 05:03 | XMS_ITS ---
Author Organization Aaron Rob MD Address [address] [place] [phone] Care Team Providers Care Batting Machine Operator Insulation Name Role Phone Aaron Rob Primary Care Provider [phone] REASON FOR VISIT discharge Encounters Encounter Location Date Provider Diagnosis Aaron Rob MD [address] [place] [address] [place] [phone] 01/17/2025 Aaron Rob Plan Of Treatment Next Appt Details Provider Name:Aaron deleon, 06/18/2025 11:30:00 AM, [address] [place] [address], [address], [phone], Provider Name:Aaron deleon, 10/08/2025 07:45:00 AM, [address] [place] [address], [address], [phone], Provider Name:Aaron Edi China deleon, 10/15/2025 09:30:00 AM, [address], [address], [place], [phone], Progress Notes * Selene BARRYDOB: [birth year] (69 yo F)Acc No.[id number]:01/17/2025 Patient: Selene EASTON :1955 A ge:69 Y S ex:Female Address:[address] [place] [address] [facility] [place] [address] * true * Date: Generated for Julius pittman/Fito/Dionnaitting on: 08/07/2024 07:11 PM EST
--- OUTSIDE RECORDS SUMMARY | 2025-01-25 04:15 | XMS_ITS ---
Author Organization Aaron Rob MD Address [address] [place] [phone] Care Team Providers Care Pipe And Test Supervisor Name Role Phone Aaron Rob Primary [...] Omeprazole 20 MG Take 1 capsule by [facility] once daily for 90 Active Calcium [...] Rob MD [address] [place], [place] [phone] 01/25/2025 Aaron Rob Type 2 diabetes mellitus [...] 11:30:00 AM, [address], [address], [place], [place], [phone], Provider Name:Aaron Atkinson ier, 10/08/2025 07:45:00 AM, [address], [address], [place], [place], [phone], Provider Name:Aaron Atkinson ier, 10/15/2025 09:30:00 AM, [address], [address], [place], [phone], Progress Notes * Selene BARRYDOB: [birth year] (69 yo F)Acc No.[id number]:01/25/2025 Progress Notes Patient: Selene EASTON Provider: Josh Rob MD :1955 A ge:69 Y S ex:Female Date:01/25/2025 Address:[address] [place], [place] [phone] Subjective: * Chief Complaints: * F /u [...] 0 01/25/2025 Generated for Julius pittman/Fito/Dionnaitting on: 1 08/07/2024 07:11 PM EST History and Physical Notes * [...]
--- OUTSIDE RECORDS SUMMARY | 2025-04-09 09:20 | XMS_ITS ---
Author Organization [facility] Address [address] [place] [address] Care Team Providers Care Data Integration Architect Name Role Phone Darron PIERCE, Aaron Primary Care Provider Angelo Caceres [phone] REASON FOR VISIT Patient presents today for a rectal bleeding Encounters Encounter Location Date Provider Diagnosis [facility] 10 [facility] [address] [place] [address] 04/09/2025 Angelo Lan Plan Of Treatment Next Appt Details Provider Name:Angelo Lan , 08/01/2025 10:20:00 AM, [address], [address], [place], [address], Progress Notes * BERT KRAFTDOB: [birth year] (70 yo F)Acc No.[id number]:04/09/2025 Progress Notes Patient: BERT EASTON Provider: Lavelle Lan MD :1955 A ge:70 Y S ex:Female Date:04/09/2025 Address:[address] [place], [place] [phone] Pcp:Aaron Rob MD Subjective: * Chief Complaints: * P atient presents today for a rectal bleeding * The named appointment provid er may or may not be the originator of this progress note, and it is not deemed complete until electronically signed by the appointment provider. Sign off status: Pending * Provider: Lavelle Lan MD Date: 1 Generated for Printi ng/Faesperanzag/eTransmitting on: 1 08/07/2024 07:11 PM EST
--- OUTSIDE RECORDS SUMMARY | 2025-04-16 02:30 | XMS_ITS ---
Author Organization Aaron Rob MD Address [address] [place] [phone] Care Team Providers Care Professor Of Counseling Name Role Phone Aaron Rob Primary Care Provider Results Component Value Reference Range Notes Liver Panel Reviewed date:04/16/2025 03:56:30 PM Interpretation: Performing Lab:[facility], [address] [place] [phone] Notes/Report: Bilirubin Total 0.4 0.0-1.0 mg/dL Bilirubin Direct 0.2 0.0-0.5 mg/dL Aspartate Amino Transferase 31 5-31 U/L Alanine Aminotransferase 12 0-31 U/L Total Protein 6.9 6.5-8.0 g/dL Albumin Level 3.8 3.5-5.0 g/dL Alkaline Phosphatase 125 39-117 U/L Glucose Fasting Reviewed date:04/16/2025 03:57:54 PM Interpretation: Performing Lab:[facility], [address] [place] [phone] Notes/Report: Glucose Fasting 118 60-99 mg/dL A fasting glucose from 100-125 mg/dl is considered impaired (pre-diabetes). Lipid Panel with Reflex Reviewed date:04/16/2025 04:02:18 PM Interpretation: Performing Lab:[facility], [address] [place] [phone] Notes/Report: Triglycerides 224 <150 mg/dL Desirable Triglyceride: [...] A1c Reviewed date:04/16/2025 12:25:34 PM Interpretation: Performing Lab:[facility], [address] [place] [phone] Notes/Report: Hemoglobin A1c % 5.6 <6.0 % [...] average glucose, using the formula of the V1P-Snzxvzs Average Glucose study (ADAG), Diabetes Care, Vol.31,#8, 2007 REASON FOR VISIT FASTING LIPIDS Immunizations Vaccine Route Administration Date Status Comme nts Influenza High Dose IM Intramuscular 04/16/2025 Administer ed Encounters Encounter Location Date Provider Diagnosis Aaron Rob MD [address] [place] [address] [place] [phone] 04/16/2025 Aaron Rob Type 2 diabetes santhosh [...] Provider Name:Aaron Atkinson ier, 06/18/2025 11:30:00 AM, [address] [place] [address], [address] [place] [address], [phone], Provider Name:Aaron Atkinson ier, 10/08/2025 07:45:00 AM, [address] [place] [address], [address], [phone], Provider Name:Aaron Atkinson ier, 10/15/2025 09:30:00 AM, [address] [place] [address], [address], [phone], Progress Notes * BARRYGian GALLEGOSwhitneyDOB: [birth year] (70 yo F)Acc No.[id number]:04/16/2025 Progress Note Patient: Selene EASTON Provider: Josh Rob MD :1955 A ge:70 Y S ex:Female Date:04/16/2025 Address:[address] [place] [phone] Subjective: * Chief Complaints: * 1 . [...] * Procedure Codes: 3 6415 VENIPUNCT, ROUTINE*, 92667 FLU VACC PRSV FREE INC ANTIG, G0008 ADMN FLU VAC NO FEE SCHED SAME DAY * * The named appointment provid er may or may not be the originator of this progress note, and it is not deemed complete until electronically signed by the appointment provider. Sign off status: Pending * Provider: Josh Rob MD Date: 1 Generated for Julius pittman/Fito/Dionnaitting on: 1 08/07/2024 07:16 PM EST
--- OUTSIDE RECORDS SUMMARY | 2025-04-23 05:15 | XMS_ITS ---
Author Organization Aaron Rob MD Address [address] [place] [phone] Care Team Providers Care Information Services Assistant Name Role Phone Aaron Rob Primary Care Provider Allergies No Known Allergies REASON FOR VISIT 2 month DM Medications Medication SIG (Take, Route, Frequency, Duration) Notes Start Date End Date Status Amoxicillin-Pot Clavulanate 875-125 MG 1 tablet Orally every 12 hrs for 7 days 08/25/2023 Not-Taking Enbrel 50 MG/ML 1 mL Subcutaneous Not-Taking Januvia 50 MG 1 tab Orally daily 12/17/2024 Active Metoprolol Succinate ER 50 MG 1 tablet Orally twice a day Active Ventolin HFA 108 (90 Base) MCG/ACT INHALE 1 PUFF BY MOUTH EVERY 4 HOURS NEEDED Active Synthroid 100 MCG 1 tablet in the morn ing on an empty stomach Orally Once a day Active Estradiol 0.1 MG/GM as directed Vaginal Two times a Week 10/11/2023 Active Atorvastatin Calcium 80 MG Take 1 tablet by mouth once daily Active Albuterol Sulfate (2.5 MG/3ML) 0.083% 3 ml Inhalation Three times a day 06/15/2012 Active Lasix 20 MG 1 tablet Orally Once a day Active Omeprazole 20 MG Take 1 capsule by [facility] once daily for 90 Active [...] Problem Status W/U Status Risk Notes Problem History of hysterectomy (614317791) History of hysterectomy (Z90.710) Active confirmed Vital Signs Blood pressure systolic 144 mm Hg 04/23/20 25 Blood pressure diastolic 80 mm Hg 025 Height 63.5 in 04/23/2025 Weight 167 lbs 04/23/2025 BMI 29.12 kg/m2 04/23/2025 Encounters Encounter Location Date Provider Diagnosis Aaron Rob MD [address] [place], [place] [phone] 04/23/2025 Aaron Rob History of hysterectomy Z90.710 ; Vaginal bleeding N93.9 ; Essential hypertension I10 and 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 she has no evidence of temporal arteritis on exam Plan Of Treatment Treatment Notes Assessment Notes History of hysterectomy need notes from dr wlofe at [facility] Vaginal bleeding has a hysterectomy a nd is doing well Essential hypertension doing well on med s TMJ syndrome had been concerned o t giant cell ateritis in view of her history but does not appear to be claudication but is just inflammation in the tmj will observe. she has no evidence of temporal arteritis on exam Next Appt Details Provider Name:Aaron Atkinson ier, 06/18/2025 11:30:00 AM, [address] [facility], [address], [place], [place], [phone], Provider Name:Aaron Atkinson ier, 10/08/2025 07:45:00 AM, [address], [address], [place], [place], [phone], Provider Name:Aaron Atkinson ier, 10/15/2025 09:30:00 AM, [address] [facility], Suite [facility], [place], [place], [phone], Progress Notes * Selene BARRYDOB: [birth year] (70 yo F)Acc No.[id number]:04/23/2025 Progress Notes Patient: Gian EASTONmen Provider: Josh Rob MD :1955 A ge:70 Y S ex:Female Date:04/23/2025 Address:[address] [place] [phone] Subjective: * Chief Complaints: * 2 month DM * HPI: S ymptom(s): patient is a 70 yo female here for 2 month follow up visit/ had hysterectomy/ getting pains in tmj on the rt. hurts at tmj and behind her ear. not taking any meds for ra.was unable to open her mouth not claudication. * ROS: G eneral/Constitutional: Denies C hills. [...] hortness of breath with exertion. G astrointestinal: Denradha D iarrhea. D enies N ausea. * [...] Objective: * Vitals: H t: 63.5, Wt: 167, BMI:29.12, BP:144/80, Repeat BP:140/72, Wt-k.75. * P ast Orders: L ab:Glucose Fasting (Order Date - 04/16/2025) (Collection Date & Time - 04/16/2025 07:30 AM) Value Reference Range Glucose Fasting 118 H 60-99 - mg/dL L ab:Lipid Panel with Reflex (Order Date - 04/16/2025) (Collection Date & Time - 04/16/2025 07:30 AM) Value Reference Range Triglycerides 224 H <150 - mg/dL Cholesterol 112 <200 - mg/dL LDL Cholesterol Calculated 39 <100 - mg/dL HDL Cholesterol 29 L >40 - mg/dL L ab:Hemoglobin A1c (Order Date - 04/16/2025) (Collection Date & Time - 04/16/2025 07:30 AM) Value Reference Range Hemoglobin A1c % 5.6 <6.0 - % Estimated Average Glucose 114 - mg/dL L ab:Liver Panel (Order Date - 04/16/2025) (Collection Date & Time - 04/16/2025 07:30 AM) Value Reference Range Bilirubin Total 0.4 0.0-1.0 - mg/dL Bilirubin Direct 0.2 0.0-0.5 - mg/dL Aspartate Amino Transferase 31 5-31 - U/L Alanine Aminotransferase 12 0-31 - U/L Total Protein 6.9 6.5-8.0 - g/dL Albumin Level 3.8 3.5-5.0 - g/dL Alkaline Phosphatase 125 H 39-117 - U/L * Examination: G eneral Examination: GENERAL APPEARANCE: a lert, well hydrated, in no distress.? HEAD: n ormocephalic. SKIN: g ood turgor. HEART: n o murmurs, rubs, gallops, regular rate and rhythm.? LUNGS: n o wheezes, rales, rhonchi, good air movement, clear to auscultation bilaterally. MUSCULOSKELETAL: h as tenderness over the tmj on the rt.? Assessment: * Assessment: 1. H istory of hysterectomy - Z90.710 (Primary) 2 . V aginal bleeding - N93.9 3 . E ssential hypertension - I10 4 . 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 V aginal bleeding Notes: has a hysterectomy and is doing well 3. E ssential hypertension Notes: doing well on meds 4. T MJ syndrome Notes: had been concerned ot giant cell ateritis in view of her history but does not appear to be claudication but is just inflammation in the tmj will observe. she has no evidence of temporal arteritis on exam * Procedure Codes: * * Sign off status: Completed true * Provider: Josh Rob MD Date: 1 Generated for Julius pittman/Fito/Riosmitting on: 1 08/07/2024 07:15 PM EST History and Physical Notes * HPI (History of Present Illness) Category Sub-Category Detail Notes Category Not es Symptom(s) patient is a 70 yo female here for 2 month follow up visit/ had hysterectomy/ getting pains in tmj on the rt. hurts at tmj and behind her ear. not taking any meds for ra.was unable to open her mouth not claudication Examination Category Sub-Category Detail Notes Category Not es General Examination GENERAL APPEARANCE: alert, w ell hydrated, in no distress HEAD: normocephalic HEART: no murmurs, rubs, ga llops, regular rate and rhythm LUNGS: no wheezes, rales, r honchi, good air movement, clear to auscultation bilaterally SKIN: good turgor MUSCULOSKELETAL: has tenderness over the tmj on the rt
--- OUTSIDE RECORDS SUMMARY | 2025-05-12 13:29 | XMS_ITS ---
Author Organization Aaron Rob MD Address [address] [place] [phone] Care Team Providers Care Accounts Receivable Collector Name Role Phone Aaron Rob Primary Care Provider REASON FOR VISIT ER Encounters Encounter Location Date Provider Diagnosis Aaron Rob MD [address] [facility] [address] [place] [phone] 05/12/2025 Aaron Rob Plan Of Treatment Next Appt Details Provider Name:Aaron deleon, 06/18/2025 11:30:00 AM, [address] [place] [address], [address], [phone], Provider Name:Aaron deleon, 10/08/2025 07:45:00 AM, [address] [place] [address], [address], [phone], Provider Name:Aaron Edi China deleon, 10/15/2025 09:30:00 AM, [address], [address], [place], [phone], Progress Notes * Selene BARRYDOB: [birth year] (70 yo F)Acc No.[id number]:05/12/2025 Patient: Selene EASTON :1955 A ge:70 Y S ex:Female Address:[address] [place] [address] [place] [address] * true * Date: Generated for Julius pittman/Fito/Dionnaitting on: 08/07/2024 07:14 PM EST
--- OUTSIDE RECORDS SUMMARY | 2025-05-21 05:15 | XMS_ITS ---
Author Organization Aaron Rob MD Address [address] [place] [phone] Care Team Providers Care Timber Cruiser Name Role Phone Aaron Rob Primary Care Provider [phone] Allergies No Known Allergies Reason For Referral Reason DM Diagnosis 1 Type 2 diabetes santhosh itus treated without insulin (E11.9) Referral Organization Aaron Rob MD Referring Provider First Name Aaron Referring Provider Last Name Darron Referring Provider Speciality Internal M edicine Referred Provider Angelo Ramires Referred Provider Specialty Endocrinolog y General Notes Ursula Tracy 1 07/28/2024 10:09:42 AM >referral info refaxed Referral Priority Routine REASON FOR VISIT 2 week f/u after ER visit per Dr Rob and PH/TCM Medications Medication SIG (Take, Route, Frequency, Duration) Notes Start Date End Date Status Januvia 50 MG 1 tab Orally daily 12/17/2024 Active Magnesium 250 MG 1 capsule Orally Onc e a day Active Docusate Sodium 100 MG 1 capsule as need ed Orally Once a day Not-Taking Enbrel 50 MG/ML 1 mL Subcutaneous Not-Taking Amoxicillin-Pot Clavulanate 875-125 MG 1 tablet Orally every 12 hrs for 7 days 08/25/2023 Not-Taking Metoprolol Succinate ER 50 MG 1 tablet Orally twice a day Active Ventolin HFA 108 (90 Base) MCG/ACT INHALE 1 PUFF BY MOUTH EVERY 4 HOURS NEEDED Active Atorvastatin Calcium 80 MG Take 1 tablet by mouth once daily Active Estradiol 0.1 MG/GM as directed Vaginal Two times a Week 10/11/2023 Active Albuterol Sulfate (2.5 MG/3ML) 0.083% 3 ml Inhalation Three times a day 06/15/2012 Active Omeprazole 20 MG Take 1 capsule by [facility] once daily for 90 Active Synthroid 100 MCG 1 tablet in the morn ing on an empty stomach Orally Once a day Active Aspir-81 81 MG 1 tablet Orally Once a day Active Calcium + D 315-200 MG-UNIT 1 tablet Orally 500/125 once a day Active Lasix 20 MG 1 tablet Orally Once a day Active Vital Signs Blood pressure systolic 132 mm Hg 05/21/20 25 Blood pressure diastolic 70 mm Hg Height 63.5 in 05/21/2025 Weight 163 lbs 05/21/2025 BMI 28.42 kg/m2 05/21/2025 weight is down 4 pounds [facility] e 04-23-25 Encounters Encounter Location Date Provider Diagnosis Aaron Rob MD [address] [place] [address] [place] [id number] 05/21/2025 Aaron Rob Type 2 diabetes mellitus treated without insulin E11.9 and Lumbar disc disease M51.9 Assessments Encounter Date Diagnosis (ICD Code) Assessment Notes Treatment Notes Treatment Clinical Notes Section Notes 05/21/2025 Type 2 diabetes mellitus treated without insulin (ICD-10 - E11.9) trying to see dr ramires 05/21/2025 Lumbar disc disease (ICD-10 - M51.9) if she continues to have pain to go back to the spine center Plan Of Treatment Medication Medication Name Sig Start Date Stop Date Notes Januvia 50 MG 1 tab Orally daily 12/17/2024 Treatment Notes Assessment Notes Type 2 diabetes mellitus yuko ated without insulin trying to see dr ramires Lumbar disc disease if she continues to have pain to go back to the spine center Referrals Referral Date Details 05/21/2025 05/21/2025, DM, Joee rt Kamran Next Appt Details Follow Up: 4 Weeks, Reason: Provider Name:Aaron Atkinson adrienne, 06/18/2025 11:30:00 AM, [address] [place] [address], [address] [facility], [place], [place], [phone], Provider Name:Aaron Atkinson adrienne, 10/08/2025 07:45:00 AM, [address] [place] [address], [place] [address], [place], [place], [phone], Provider Name:Aaron Atkinson allenr, 10/15/2025 09:30:00 AM, [address] [place] [address], [place] [address], [place], [place], [phone], Progress Notes * BARRY, CarmenDOB: [birth year] (70 yo F)Acc No.[id number]:05/21/2025 Patient: Gian EASTONmen Provider: Josh Rob MD :1955 A ge:70 Y S ex:Female Date:05/21/2025 Address:[address] [place] [id number] Subjective: * Chief Complaints: * 2 week f/u after ER visit per Dr Rob and PH/TCM * HPI: S ymptom(s): patient is a 70 yo female here for follow up from recent ER visit. * ROS: G eneral/Constitutional: Denies C hills. D enies F atigue. D enies F ever. D enies H eadache. E NT: Denies S ore throat. R espiratory: Denies C ough. D enies S hortness of breath at rest. D enies S hortness of breath with exertion. G astrointestinal: Denies A bdominal pain. D enies B lood in stool.?Denies D iarrhea. D enies N ausea. * [...] Objective: * Vitals: H t: 63.5, Wt: 163, BMI:28.42, BP:132/70, Wt-k.94. weight is down 4 pounds since 04-23-25. * Examination: G eneral Examination: GENERAL APPEARANCE: a lert, well hydrated, in no distress.? HEAD: n ormocephalic. SKIN: g ood turgor. HEART: r egular rate and rhythm, no murmurs, rubs, gallops.? LUNGS: n o wheezes, rales, rhonchi, good air movement, clear to auscultation bilaterally. ABDOMEN: s oft, nontender, nondistended, no rebound tenderness, no organomegaly. Assessment: * Assessment: 1. T ype 2 diabetes mellitus treated without insulin - E11.9 (Primary) 2 . L umbar disc disease - M51.9 Plan: * Treatment: 2. L umbar disc disease Notes: if she continues to have pain to go back to the spine center * Procedure Codes: * Follow Up: 4 Weeks * * Sign off status: Completed true * Provider: Josh Rob MD Date: 07/21/2024 Generated for Julius pittman/Fito/Dionnaitting on: 08/07/2024 07:12 PM EST History and Physical Notes * HPI (History of Present Illness) Category Sub-Category Detail Notes Category Not es Symptom(s) patient is a 70 yo female here for follow up from recent ER visit Examination Category Sub-Category Detail Notes Category Not es General Examination GENERAL APPEARANCE: alert, w ell hydrated, in no distress HEAD: normocephalic HEART: regular rate and rhy thm, no murmurs, rubs, gallops LUNGS: no wheezes, rales, r honchi, good air movement, clear to auscultation bilaterally ABDOMEN: soft, nontender, non distended, no rebound tenderness, no organomegaly SKIN: good turgor Consultation Request Notes Referral Date Referring Provider Referred Provider Not es 05/21/2025 Aaron Rob Robert DM
--- NOTE | 2025-06-06 13:00 | MHC.OFFVIS ---
Vital Signs 06/06/25 13:09 Height 5 ft 3 in Weight 163 lb 5.8 oz BMI 28.9 BP 130/72 Blood Pressure Location Lt brachial Position Sitting Pulse 60 Pulse Source Pulse Oximeter Pulse Oximetry (%) 98 Oxygen Delivery Method Room Air Intake Visit Reasons: follow up/ MD [place] urgent visit Intake Note: Patient presents today for RA follow up. Patient c/o of bilateral shoulder and LT hip pain. Copywriter Required: No Information Interpreted: non-clinical & clinical Accompanied by: Self / Same As Patient Allergies No Known Allergies (No Known Allergies*) Allergy (Verified 06/06/25 13:06) Medication List - Last Reconciled 06/06/25 by Katelynn Garcia MD acetaminophen 650 mg PO Q6H PRN amlodipine 2.5 mg PO DAILY aspirin (Adult Low Dose Aspirin) 81 mg PO DAILY Held on 01/17/25. Instructions: Resume on 01/22/25. atorvastatin 80 mg PO BEDTIME calcium carbonate-vitamin D3 500 mg-5 mcg (200 unit) 1 tab PO DAILY furosemide 20 mg PO DAILY hydrocortisone acetate (Anusol-HC) 25 mg SD BID [Januvia ] levothyroxine (Synthroid) 100 mcg PO DAILY magnesium 250 mg PO DAILY metoprolol tartrate 50 mg PO BID multivitamin 1 tab PO DAILY omeprazole 20 mg PO DAILY psyllium husk (Metamucil) 1 tbsp PO DAILY HPI Comments Details: Patient is a 70-year-old female with hypertension, hyperlipidemia, hypothyroidism, polyarticular osteoarthritis, osteopenia, and seropositive rheumatoid arthritis here today for follow up Interval History: Patient last seen 04/26/2025 with me - Not on DMARDs - Had back surgery 09/2024, doing well since then - Had bladder prolapse and repair as well as hysterectomy about 1 month ago, so still recovering - Doing well overall - Gets intermittent pain but not unbearable - Also complains of right TMJ pain, which she uses a hot towel for - No evidence of active synovitis, plan to continue monitoring off DMARDs Today - Not on DMARDs - urgent visit - presenting for follow-up of hip pain and evaluation of new, widespread body pain. - she contacted the office 05/08/2025 complaining of hip pain - 05/17 she was given a Toradol injection, which provided 1-2 days of relief - She now reports diffuse pain, most prominently in her shoulders, which limits her ability to lift her arms. - pain is affecting her entire body in bilateral shoulders, arms, hands. waking up is the worst and it takes over an hour to feel any relief. brace on right hand. the cold weather has also made in unbearable. tylenol, 1000mg, every 8 hours. 200mg ibuprofen every 6 hours. heating pad slightly effective. - The pain and stiffness are most severe in the mornings, rating it 100% in severity, which significantly impacts her ability to perform daily activities and requires her to use a cane. - Her hip pain is primarily associated with walking and tends to improve by the end of the day. - Associated symptoms include a recent onset of numbness or a sensation of heat in her feet. - She has been self-treating with one ibuprofen daily, along with paulo and turmeric. - The patient has a history of treatment for suspected rheumatoid arthritis, including a trial of Enbrel for approximately one year, which was discontinued due to a lack of efficacy. - She was recently hospitalized for rectal bleeding, and an endoscopic procedure revealed inflammation in the colon; she is awaiting a follow-up colonoscopy. - Her medical history is also significant for spine surgery in December and a past hysterectomy with oophorectomy. - She reports a history of high blood sugar levels, for which she takes medication, and notes her recent A1c has improved. - She has a pending appointment with an diamond finishing supervisor to review her diabetes management. Rheumatologic History: +RF++CCP dx 2016 Leflunomide 2016 Plaquenil 2017 Humira January 2019 - October 2019 Methotrexate October 2018-September 2020-self stopped Xeljanz October 2019- September 2020- self stopped Kevzara- September 2020- October 2021- active disease on exam Actemra- October 2021- January 2022-low WBC, PLTS and absolute neutraphils Enbrel September 2018-December 2018- restarted February 2022 (on Hold for right arthroplasty on Jun 22) restarted July 2022 - 05/2024 self d/c not effective Current Rheumatology Medication(s): [facility] Medical History Rheumatoid arthritis Osteopenia Scoliosis Long-term use of immunosuppressant medication Personal history of COVID-19 Hx of thyroid cancer Non-rheumatic mitral regurgitation Essential hypertension Atherosclerotic cardiovascular disease [facility]PC 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 Seropositive rheumatoid arthritis Coronary arteriosclerosis Surgical History Hx of thyroidectomy (~2019) Hx of total knee replacement (06/22/22) Hx of bilateral cataract extraction Hx of colonoscopy History of back surgery Status post coronary artery bypass graft Family History Mother HTN (hypertension) Social History Household Members: Spouse Housing: Apartment Are you a primary manager intensive care to a significant other at home: No Do you presently have visiting nurse or other home services: No 75 years or older and lives alone: No Alcohol intake: current Alcohol intake frequency: holidays/special occasions only Alcohol type: wine Comment: bathroom only, aware of trip hazards Patient Tobacco Use Status: Former Tobacco user Tobacco use type: Cigarette Female Reproductive History Menstrual Age of Menarche: 12 Review of Systems Narrative Review of Systems - General: Reports diffuse body aches. - Musculoskeletal: Reports severe morning stiffness, particularly in the hands making it difficult to open them. - Musculoskeletal: Reports bilateral shoulder pain that limits her range of motion. - Musculoskeletal: Reports hip pain that is exacerbated by walking. - Neurological: Reports intermittent numbness and a sensation of heat in both feet. - Gastrointestinal: Reports a recent history of hematochezia. All other systems reviewed and are unremarkable except noted above Physical Exam Exam Exam: Vital signs reviewed Physical Examination CONSTITUITIONAL Patient alert and cooperative. Well appearing and in no apparent painful distress MSK Hands Right Hand: Able to make a fist. No swelling or tenderness to palpation of the MCPs, PIPs or DIPs. Left Hand: Able to make a fist. No swelling or tenderness to palpation of the MCPs, PIPs or DIPs. Herbedens nodes noted bilaterally Wrists Right Wrist: Full ROM to flexion and extension. No swelling or TTP Left Wrist: Full ROM to flexion and extension. No swelling or TTP Elbows Right Elbow: Full ROM. No swelling or TTP. No TTP of the medial epicondyle. No TTP of the lateral epicondyle Left Elbow: Full ROM. No swelling or TTP. No TTP of the medial epicondyle. No TTP of the lateral epicondyle Shoulders Right shoulder: Full ROM. No swelling noted. No TTP of the AC joint. No TTP of the subacromial bursa. No TTP of the posterior shoulder Left shoulder: Full ROM. No swelling noted. No TTP of the AC joint. No TTP of the subacromial bursa. No TTP of the posterior shoulder Hip bursa: Tenderness to palpation bilaterally Knees Right knee: Full ROM. No swelling noted. No TTP of the knee joint line. No TTP of pes anserine bursa Left knee: Full ROM. No swelling noted. No TTP of the knee joint line. No TTP of pes anserine bursa. Ankles Right ankle: Good ankle dorsiflexion and plantar flexion. No swelling. No TTP of the ankle joint Left ankle: Good ankle dorsiflexion and plantar flexion. No swelling. No TTP of the ankle joint Feet Right foot: Negative squeeze test Left foot: Negative squeeze test Tender points? Tenderness to palpation of the bilateral trapezius, supraspinatus, anterior costochondral junctions, bilateral suboccipital muscle insertions Vital Signs: Last Vital Signs Pulse 60 06/06/25 13:09 BP 130/72 06/06/25 13:09 Pulse Ox 98 06/06/25 13:09 Oxygen Delivery Method Room Air 06/06/25 13:09 BMI result Body Mass Index 28.9 Office Procedures AMB Joint Injection/Aspiration Coding 14992 - Large joint Procedure code (CPT) selection complete AMB Joint Injection/Aspiration Coding 30123 - Large joint Procedure code (CPT) selection complete Office Meds lidocaine (PF) 10 mg/mL (1 %) injection solution Performing Provider: Katelynn Garcia MD Performing Location: [facility] Administered by: Katelynn Garcia MD on 06/06/25 14:51 Dose Route Admin Location Dispensed Lot Number Expiration Date [facility] Garnishment Specialist 1 mL Infiltration left shoulder bursa 2 mL [id number] 11/24/26 04747-375-52 [employer] Total Dispensed Waste 2 mL 50 % Kenalog 40 mg/mL suspension for injection Performing Provider: Katelynn Garcia MD Performing Location: [facility] Administered by: Katelynn Garcia MD on 06/06/25 14:51 Dose Route Admin Location Dispensed Lot Number Expiration Date [facility] Garnishment Specialist 40 mg intrabursal left shoulder bursa 1 mL [id number] 12/24/26 [address]-8 [employer] Total Dispensed Waste 1 mL 0 % lidocaine (PF) 10 mg/mL (1 %) injection solution Performing Provider: Katelynn Garcia MD Performing Location: [facility] Administered by: Katelynn Garcia MD on 06/06/25 14:51 Dose Route Admin Location Dispensed Lot Number Expiration Date [facility] Garnishment Specialist 1 mL Infiltration right shoulder bursa 2 mL [id number] 11/24/26 34310-814-96 [employer] Total Dispensed Waste 2 mL 50 % Kenalog 40 mg/mL suspension for injection Performing Provider: Katelynn Garcia MD Performing Location: [facility] Administered by: Katelynn Garcia MD on 06/06/25 14:51 Dose Route Admin Location Dispensed Lot Number Expiration Date [facility] Garnishment Specialist 40 mg intrabursal right shoulder bursa 1 mL [id number] 12/24/26 [address]-5 [employer] Total Dispensed Waste 1 mL 0 % Results Reviewed Results Reviewed: Laboratory Tests 04/25/25 05/10/25 05/10/25 10:46 11:01 13:18 WBC 8.8 RBC 4.46 Hgb 12.3 Hct 37.1 Plt Count 258 ESR 10 Sodium 142 Potassium 3.9 Chloride 109 H Carbon Dioxide 23 BUN 15 Creatinine 0.55 AST 23 ALT 9 C-Reactive Protein 0.38 DEXA 02/2024 FINDINGS: LEFT FEMUR, NECK: Current: BMD 1.145 g/cm2, Z-score 2.0, T-score 0.8, normal. Prior: BMD 0.923 g/cm2. Baseline: BMD 0.751 g/cm2. LEFT FEMUR, TOTAL: Current: BMD 0.838 g/cm2, Z-score -0.4, T-score -1.3, osteopenia, 14.2% increase from previous, 21.3% increase from baseline (<5% change is not significant). Prior: BMD 0.734 g/cm2. Baseline: BMD 0.691 g/cm2. AP SPINE L1-L2 (excluding L3 and L4): The data of L1-L4 has been changed to exclude the L3 and L4 vertebral bodies, because significant degenerative change at these levels may cause overestimation of lumbar spine density. Current: BMD 1.037 g/cm2, Z-score 0.0, T-score -1.1, osteopenia, 5.1% increase from previous, 11.9% increase from baseline (<5% change is not significant). Prior: BMD 0.987 g/cm2. Baseline: BMD 0.927 g/cm2. Assessment & Plan Assessment & Plan (1) Seropositive rheumatoid arthritis: Comment: +RF++CCP dx 2016 Leflunomide 2016 Plaquenil 2017 Humira January 2019 - October 2019 Methotrexate October 2018-September 2020-self stopped Xeljanz October 2019- September 2020- self stopped Kevzara- September 2020- October 2021- active disease on exam Actemra- October 2021- January 2022-low WBC, PLTS and absolute neutraphils Enbrel September 2018-December 2018- restarted February 2022 (on Hold for right arthroplasty on Jun 22) restarted July 2022 effective Code(s): M05.9 - Rheumatoid arthritis with rheumatoid factor, unspecified Category: Medical Plan: #Seropositive RA Patient is a 70-year-old female with seropositive rheumatoid arthritis here today for follow up. No evidence of active synovitis on exam today off DMARDs. We will monitor off immunosuppression for now Plan - Monitor off immunosuppression - RTC 4 months - Labs before visit: CBC, CMP, ESR, CRP (2) Fibromyalgia: Code(s): M79.7 - Fibromyalgia Plan: #Fibromyalgia The patient's clinical presentation of diffuse pain, significant morning stiffness, fatigue, multiple muscular tender points on examination, and a lack of response to prior disease-modifying antirheumatic drugs is consistent with fibromyalgia rather than an active inflammatory arthritis. The plan is to restart gabapentin 300 mg nightly, a medication she has tolerated in the past for sleep. Additionally, she was advised to start taking scheduled Tylenol 1000 mg twice daily for baseline pain control, with education provided on the importance of consistent dosing versus as-needed use. She was counseled that NSAIDs like ibuprofen should be used only sparingly due to the risk of renal complications in her age group. Plan - Tylenol 1000mg bid - Gabapentin 300mg nightly (3) Bilateral shoulder bursitis: Code(s): M75.51 - Bursitis of right shoulder; M75.52 - Bursitis of left shoulder Plan: #Bilateral shoulder bursitis The bilateral shoulder pain is considered a component of her fibromyalgia and myofascial pain syndrome. For symptomatic relief, she received bilateral shoulder steroid injections during the visit. She was informed that it may take 3-5 days for the injections to take full effect. Plan - S/p bilateral shoulder injections Plan I explained to the patient that based on her symptoms and my physical exam, her diagnosis is fibromyalgia, not active rheumatoid arthritis. I clarified that fibromyalgia is a nerve-related pain condition, which is why medications designed to suppress the immune system, like Enbrel, were ineffective for her. We discussed the treatment plan, which includes restarting gabapentin 300 mg at night and initiating scheduled Tylenol 1000 mg twice daily. I emphasized the importance of taking Tylenol consistently for it to be effective, rather than only when she is already in pain. I advised against regular, long-term use of ibuprofen due to its potential to cause kidney problems, especially at her age, but noted it is acceptable for occasional use. For her acute shoulder pain, I administered bilateral steroid injections and informed her that it may take three to five days to feel the full benefit. We will reassess her progress at her next scheduled follow-up appointment in September. I spent 35 minutes reviewing the record and labs, taking a history, examining the patient, discussing the treatment plan, ordering diagnostic work up and documenting in the medical record Orders: Orders AMB Joint Injection/Aspiration Today M75.51 - Bursitis of right shoulder, M75.52 - Bursitis of left shoulder C Reactive Protein 4 Months Z79.899 - Other group home (current) drug therapy AMB Joint Injection/Aspiration Today M75.51 - Bursitis of right shoulder, M75.52 - Bursitis of left shoulder Complete Blood Count Auto Diff 4 Months Z79.899 - Other group home (current) drug therapy Comprehensive Met. Panel 4 Months Z79.899 - Other buttermaker (current) drug therapy Erythrocyte Sedimentation Rate 4 Months Z79.899 - Other group home (current) drug therapy Medications: New gabapentin 300 mg PO BID 90 caps 1RF 90 days M79.7 - Fibromyalgia Coding Level of Care Code Est Pt Level 4 (41017) Add On Problem Visit Only Diagnoses Seropositive rheumatoid arthritis M05.9 Fibromyalgia M79.7 Bilateral shoulder bursitis M75.51; M75.52 CPT Codes Coding - 10355 Large joint: 76535 - Large joint ([id number]) Coding - 61944 Large joint: 30598 - Large joint ([id number])
[2025-06-06 13:09] VITALS: BP 130/72; PULSE 60; O2SAT 98; BMI 28.9
--- OUTSIDE RECORDS SUMMARY | 2025-06-06 19:12 | XMS_ITS | Encounter Summary ---
Author Organization [employer] Address [address] [place] [address] Care Team Providers Care University Relations Director Name Role Phone Unavailable Primary Care Provider Unavailabl e Encounter Details Date Type Department Care Team (Late st Contact Info) Description 03/01/2023 Abstract [facility] [address] [place] [address] Sunny Martin, DMD [address] [place] [address] Social History Tobacco Use Types Packs/Day Years [...]
--- OUTSIDE RECORDS SUMMARY | 2025-06-06 19:13 | XMS_ITS | Clinical Summary ---
Author Organization [employer] Address [address] [place] [address] [address] [place] [address] Care Team Providers Care Catalogue Maker Name Role Phone Unavailable Primary Care Provider [...] Recently Relevant to Health Maintenance Insurance MEDICARE [facility] MEDICAID [facility] ADULT
--- OUTSIDE RECORDS SUMMARY | 2025-06-06 19:15 | XMS_ITS | Patient Health Record ---
Author Organization [facility] Address [address] [place] [address] Care Team Providers Care Shop Clerk Name Role Phone Aaron Rob MD Primary Care Provider Angelo Caceres [phone] Reason For Referral No Information Medications Medication [...] Problem Screening for malignant neoplasm of colon (096662449) Encounter for screening for malignant neoplasm of colon (Z12.11) Active confirmed Problem Gastroesophageal reflux disease without esophagitis (775294878) Gastroesophageal reflux disease without esophagitis (K21.9) Active confirmed Encounters Encounter Location Date Provider Diagnosis [facility] [address] [place] [address] 04/05/2025 Angelo Lan Plan Of Treatment Future Test Test Name Order Date COLONOSCOPY 05/30/2018 Next Appt Details Provider Name:Angelo Lan , 08/01/2025 10:20:00 AM, [address] [facility], [address], [place], [address], Insurance Providers Payer Name Payer Address Payer Phone Subscriber Number Group Number Insured Name Patient Relationship to Insured Coverage Start Date Coverage End Date MEDICARE OF [place] [address] [place] [address] [id number] BERT HOOD Self - patient is the insured Medical (General) History Medical History History ICD Code Denies [place],DM,CVA,Lung disease,renal dise ase HTN CAD-with 3-V CABG as below--had CHF Rheumatoid arthritis Hyperthyroidism GERD--EGD in 03/2008--small HH, no esoph agitis, no Rubio'a Screening colonoscopy in 2007--hyperplastic polyp, sigmoid diverticulosis, small internal hemorrhoids Surgical History Surgery Date(Month/Year) 3-V CABG 04/11/2018 Back surgery
--- OUTSIDE RECORDS SUMMARY | 2025-06-06 19:17 | XMS_ITS | Patient Health Record ---
Author Organization Aaron Rob MD Address [address] [place] [phone] Care Team Providers Care Test Preparer Name Role Phone Aaron Rob Primary Care Provider [phone] Allergies No Known Allergies Results Component Value Reference Range Notes Hemoglobin A1c Reviewed date:11/06/2024 02:24:19 PM Interpretation: Performing Lab: Notes/Report: Hemoglobin A1c 7.6 Complete Blood Count Auto Di ff Reviewed date:10/04/2024 06:46:14 PM Interpretation: Performing Lab:[facility], [address] [place] [phone] Notes/Report: White Blood Count 6.5 4.8-10.8 X10*3/uL [...] NRBC Abs Auto 0.000 0.0-0.012 X10*3/uL Comprehensive [place]. Panel Fa st Reviewed date:10/05/2024 09:05:22 AM Interpretation: Performing Lab:[facility], [address] [place] [phone] Notes/Report: Sodium 144 135-145 mmol/L Potassium 3.9 [...] Panel Reviewed date:10/04/2024 06:22:42 PM Interpretation: Performing Lab:[address] [address] Notes/Report: Triglycerides 101 <150 mg/dL Desirable Triglyceride: [...] T4 Reviewed date:10/04/2024 06:24:59 PM Interpretation: Performing Lab:[address] [address] Notes/Report: TSH reflex Free T4 0.34 0.32-4.0 uIU/mL Microalbumin, Random Reviewed date:10/04/2024 06:28:23 PM Interpretation: Performing Lab:[address] [phone] Notes/Report: Creatinine Urine 63.70 Microalbumin Urine 24.0 Microalbum/Creatinine Ratio Ur 37.6 <30 ug/mg cr Albumin/Creatinine Ratio Reference Ranges: Normal: < 30 ug/mg creatinine Microalbuminuria: 30 - 300 ug/mg creatinine Clinical Albuminuria: > 300 ug/mg creatinine Hemoglobin A1c Reviewed date:10/04/2024 06:25:17 PM Interpretation: Performing Lab:[facility], [address] [place] [phone] Notes/Report: Hemoglobin A1c % 5.8 <6.0 % [...] average glucose, using the formula of the E4Y-Avtmphk Average Glucose study (ADAG), Diabetes Care, Vol.31,#8, Jan. 2007 UA ClnCatch+Micro w/rflx Cul t Reviewed date:10/05/2024 09:05:43 AM Interpretation: Performing Lab:[facility], [address] [place] [phone] Notes/Report: Urine, Clean Catch Color Urine Yellow Appearance Urine Clear PH 6.5 5.0-9.0 Glucose Urine UA Negative Negative mg/dL Urine Blood Small (1+) Negative Specific Fletcher - Urine 1.015 1.005-1.025 Urine Protein Negative Neg-Trace mg/dL Urine Ketones Negative Negative mg/dL Nitrite Urine Negative Negative Leukocyte Esterase Urine Trace Negative RBC Urine 11-20 0-2 /HPF WBC Urine 6-10 0-5 /HPF Squamous Epithelial Cell Urine 6-10 0-2 /HPF Bacteria Urine 3+ None Seen Hyaline Casts Urine 0-2 0-2 /LPF Liver Panel Reviewed date:04/16/2025 03:56:30 PM Interpretation: Performing Lab:[facility], [address] [place] [phone] Notes/Report: Bilirubin Total 0.4 0.0-1.0 mg/dL Bilirubin Direct 0.2 0.0-0.5 mg/dL Aspartate Amino Transferase 31 5-31 U/L Alanine Aminotransferase 12 0-31 U/L Total Protein 6.9 6.5-8.0 g/dL Albumin Level 3.8 3.5-5.0 g/dL Alkaline Phosphatase 125 39-117 U/L Glucose Fasting Reviewed date:04/16/2025 03:57:54 PM Interpretation: Performing Lab:[facility], [address] [place] [phone] Notes/Report: Glucose Fasting 118 60-99 mg/dL A fasting glucose from 100-125 mg/dl is considered impaired (pre-diabetes). Lipid Panel with Reflex Reviewed date:04/16/2025 04:02:18 PM Interpretation: Performing Lab:[address] [address] Notes/Report: Triglycerides 224 <150 mg/dL Desirable Triglyceride: [...] A1c Reviewed date:04/16/2025 12:25:34 PM Interpretation: Performing Lab:[address] [address] Notes/Report: Hemoglobin A1c % 5.6 <6.0 % [...] average glucose, using the formula of the F7V-Plleprx Average Glucose study (ADAG), Diabetes Care, Vol.31,#8, Jan. 2007 TSH reflex Free T4 Reviewed date:07/06/2024 05:11:26 PM Interpretation: Performing Lab:[facility], [address] [place] [address] Notes/Report: TSH reflex Free T4 0.16 0.32-4.0 [...] AM Interpretation: Performing Lab: Notes/Report: Value 124 XR chest 2V Reviewed date:07/06/2024 12:50:13 PM Interpretation:CBACK 07/06/24 Performing Lab: Notes/Report: [address] [address] XRay Report Signed Patient: Selene Barry MR#: [id number] 3611 : 1955 Acct:[id number] Age/Sex: 69 / F ADM Date: 06/29/24 Loc: HO.XRAY Attending Dr: Aaron Rob MD Ordering Physician: Aaron Rob MD Date of Service: 06/29/24 Procedure(s): XR chest 2V Accession Number(s): [id number] cc: Aaron Rob MD CLINICAL HISTORY: Acute [...] OV> 07/02/24 105 DD/ 54 TD/TT: 07/02/241054 Communications Advisor: [address] [place] [address] XRay Report Signed Patient: Selene Barry MR#: [id number] 3611 : 1955 Acct:[id number] Age/Sex: 69 / F ADM Date: 06/29/24 Loc: HO.XRAY Attending Dr: Aaron Rob MD Ordering Physician: Aaron Rob MD Date of Service: 06/29/24 Procedure(s): XR tigist st 2V Accession Number(s): [id number] cc: Aaron Rob MD CLINICAL HISTORY: Ac [...] in OV> 07/02/241054 DD/ 54 TD/TT: 07/02/241054 Communications Advisor: Free T4 (Free Thyroxine) Reviewed date:07/06/2024 05:11:14 PM Interpretation: Performing Lab:[facility], [address] [place] [phone] Notes/Report: Free T4 (Free Thyroxine) 1.31 0.71-1.85 ng/dL Hold Gold Reviewed date:07/06/2024 01:24:48 PM Interpretation: Performing Lab:[facility], [address] [place] [phone] Notes/Report: Hold Gold See Note Specimen held untested for 24 hours; Call to request Chemistry testing. Afshan Monsivais Reviewed date:10/04/2024 06:20:14 PM Interpretation: Performing Lab:[facility], [address] [place] [phone] Notes/Report: Afshan Monsivais See Note Specimen held untested for 24 hours; Call to request Chemistry testing. Urine Culture Reviewed date:10/05/2024 09:02:59 AM Interpretation: Performing Lab:[facility], [address] [place] [phone] Notes/Report: Urine Culture No growth. XR chest 2V Reviewed date:10/19/2024 10:26:20 AM Interpretation: Performing Lab: Notes/Report: [address] [address] XRay Report Signed Patient: Selene Barry MR#: [id number] 3611 : 1955 Acct:[id number] Age/Sex: 69 / F ADM Date: 10/17/24 Loc: [facility] Attending Dr: Aaron Rob MD Ordering Physician: Aaron Rob MD Date of Service: 10/17/24 Procedure(s): XR chest 2V Accession Number(s): [id number] cc: Aaron Rob MD CLINICAL HISTORY: MILD [...] in OV> 10/18/242154 DD/ 54 TD/TT: 10/18/242154 Communications Advisor: [address] [address] XRay Report Signed Patient: Selene Barry MR#: [id number] 3611 : 1955 Acct:[id number] Age/Sex: 69 / F ADM Date: 10/17/24 Loc: [facility] Attending Dr: Aaron Rob MD Ordering Physician: Aaron Rob MD Date of Service: 10/17/24 Procedure(s): XR tigist st 2V Accession Number(s): [id number] cc: Aaron Rob MD CLINICAL HISTORY: UT LD INTERMITTENT ASTHMA --- Additional Notes or [...] in OV> 10/18/242154 DD/ 54 TD/TT: 10/18/242154 Communications Advisor: Complete Blood Count Auto Di ff Reviewed date:11/02/2024 12:26:56 PM Interpretation: Performing Lab:[facility], [address] [place] [phone] Notes/Report: White Blood Count 7.9 4.8-10.8 X10*3/uL [...] te Reviewed date:11/02/2024 05:05:39 PM Interpretation: Performing Lab:[facility], [address] [place] [phone] Notes/Report: Erythrocyte Sedimentation Rate 12 0-20 MM/HR Patients with polycythemia and many hemoglobin abnormalities may have depressed sed rates whereas patients with anemia may have elevated sed rates. Comprehensive Met. Panel Reviewed date:11/08/2024 08:01:35 AM Interpretation:BRINDA 11/06 Performing Lab:[address] [address] Notes/Report: Sodium 134 135-145 mmol/L Potassium 4.3 [...] Protein Reviewed date:11/02/2024 01:00:24 PM Interpretation: Performing Lab:[facility], [address] [place] [phone] Notes/Report: C Reactive Protein 1.94 < or = 0.50 mg/dL Glucose, Whole Blood Reviewed date:01/17/2025 12:33:33 PM Interpretation: Performing Lab:[facility], [address] [place] [phone] Notes/Report: Glucose, Whole Blood 147 60-115 mg/dL METER # : [id number] FL guidance in OR Reviewed date:01/17/2025 12:32:59 PM Interpretation: Performing Lab: Notes/Report: [address] [address] Fluoroscopy Report Signed Patient: Selene Barry MR#: [id number] 3611 : 1955 Acct:[id number] Age/Sex: 69 / F ADM Date: 01/17/25 Loc: HO.[facility] Attending Dr: Rodney Beltran MD, PhD Ordering Physician: Rodney Beltran MD, PhD Date of Service: 01/17/25 Procedure(s): FL guidance in OR Accession Number(s): [id number] cc: Aaron Rob MD; Rodney Beltran MD, [...] Angelo Haley MD in OV> 01/17/25901 DD/ 5 TD/TT: 01/17/2544 Communications Advisor: [address] [address] Fluoroscopy Report Signed Patient: Selene Barry MR#: [id number] 3611 : 1955 Acct:[id number] Age/Sex: 69 / F ADM Date: 01/17/25 Loc: HO.SSS Attending Dr: Jessica Beltran MD, PhD Ordering Physician: Rodney Beltran MD, PhD Date of Service: 01/17/25 Procedure(s): FL guidance in OR Accession Number(s): [id number] cc: Aaron Rob MD; Rodney Beltran MD, [...] Angelo Haley MD in OV> 01/17/25901 DD/ 5 TD/TT: 01/17/2544 Communications Advisor: Afshan Monsivais Reviewed date:04/16/2025 12:25:44 PM Interpretation: Performing Lab:[facility], [address] [place] [phone] Notes/Report: Hold Gold See Note Specimen held untested for 24 hours; Call to request Chemistry testing. Complete Blood Count Auto Di ff Reviewed date:05/10/2025 12:15:21 PM Interpretation: Performing Lab:[facility], [address] [place] [phone] Notes/Report: White Blood Count 9.6 4.8-10.8 X10*3/uL [...] INR Reviewed date:05/10/2025 12:15:29 PM Interpretation: Performing Lab:[facility], [address] [place] [phone] Notes/Report: Prothrombin Time 12.1 11.2-13.5 SEC [employer] [...] OBSX1 Reviewed date:05/10/2025 12:38:15 PM Interpretation: Performing Lab:[facility], [address] [place] [phone] Notes/Report: OBS1 POSITIVE NEGATIVE Comprehensive Met. Panel Reviewed date:05/10/2025 12:14:52 PM Interpretation: Performing Lab:[facility], [address] [place] [phone] Notes/Report: Sodium 142 135-145 mmol/L Potassium 3.9 [...] Acid Reviewed date:05/12/2025 04:28:20 PM Interpretation: Performing Lab:[facility], [address] [place] [phone] Notes/Report: Lactic Acid 1.4 0.5-2.0 mmol/L SARS-CoV2/FLU/RSV Reviewed date:05/10/2025 12:14:32 PM Interpretation: Performing Lab:[facility], [address] [place] [phone] Notes/Report: Influenza A PCR NEGATIVE Negative Influenza [...] by authorized laboratories. Testing performed on the [employer] GeneXpert utilizing real-time RT-PCR. All SARS CoV2 and positive influenza A/B results are reported to [facility]. Blood Culture (First) Reviewed date:05/16/2025 12:47:54 PM Interpretation: Performing Lab:[facility], [address] [place] [phone] Notes/Report: Blood Culture (First) No growth after 5 days. Blood Culture (Second) Reviewed date:05/16/2025 12:48:02 PM Interpretation: Performing Lab:[facility], [address] [place] [phone] Notes/Report: Blood Culture (Second) No growth after [address] abdomen pelvis w con Reviewed date:05/10/2025 03:13:30 PM Interpretation: Performing Lab: Notes/Report: [address] [address] [address] Scan Report Signed Patient: Selene Barry MR#: [id number] 3611 : 1955 Acct:[id number] Age/Sex: 70 / F ADM Date: 05/10/25 Loc: HO.ED Attending Dr: Ordering Physician: Vanita Orantes Date of Service: 05/10/25 Procedure(s): CT abdomen pelvis w IV con Accession Number(s): [id number] cc: Aaron Rob MD; Vanita Orantes Report Number: [id number]: Total DLP = 506.00 mGy-cm Reason for [...] by: Jorge Carr MD 05/10/2025 02:21 PM [facility] Dictated By: Jorge Carr MD Signed By: <Electronically signed by Jorge Carr MD in OV> 05/10/25 1421 DD/ 1239 TD/TT: 05/10/25 1325 Communications Advisor: [address] [address] [address] Scan Report Signed Patient: Selene Barry MR#: [id number] 3611 : 1955 Acct:[id number] Age/Sex: 70 / F ADM Date: 05/10/25 Loc: HO.ED Attending Dr: Ordering Physician: Vanita Orantes Date of Service: 05/10/25 Procedure(s): CT abd omen pelvis w IV con Accession Number(s): [id number] cc: Aaron Rob MD; Vanita Orantes Report Number: [id number]: Total DLP = 506.00 mGy-cm Reason for [...] 05/10/25 1421 DD/ 1239 TD/TT: 05/10/25 1325 Communications Advisor: Complete Blood Count Auto Di ff Reviewed date:05/12/2025 04:28:46 PM Interpretation: Performing Lab:[facility], [address] [place] [phone] Notes/Report: White Blood Count 8.8 4.8-10.8 X10*3/uL [...] X10*3/uL NRBC Abs Auto 0.000 0.0-0.012 X10*3/uL XR lumbar spine 4V min Reviewed date:05/22/2025 04:55:35 PM Interpretation: Performing Lab: Notes/Report: [facility] [address] [place] [address] XRay Report Signed Patient: Selene Barry MR#: [id number] 3611 : 1955 Acct:[id number] Age/Sex: 70 / F ADM Date: 05/22/25 Loc: [facility] Attending Dr: Osmel MARADIAGA Ordering Physician: Osmel Mckoy Date of Service: 05/22/25 Procedure(s): XR lumbar spine 4V min Accession Number(s): [id number] cc: Aaron Rob MD; Osmel Mckoy Reason for Exam: Z98.890 - Other specified postprocedural states EXAMINATION: XR LUMBAR SPINE 4 OR MORE VIEWS CLINICAL INFORMATION: Z98.890 - Other specified postprocedural states COMPARISON: Radiographs on February 03, 2024. TECHNIQUE: AP and lateral views of the lumbar spine were obtained. Lateral views were obtained in flexion, extension, and neutral positions. FINDINGS: The numbering of the vertebrae follows the same from previous radiograph in 2023. 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 Rotatory levoscoliosis. Redemonstration of loss of disc height at multiple levels extending from L2-L3 through the lumbosacral region. Mild anterior wedging deformity of T12 and L1 vertebral bodies and posterior wedging deformity of L5 vertebral body appears similar to 2023. Minimal grade 1 retrolisthesis of L1 on L2 on the neutral and extension positions. Minimal grade 1 anterolisthesis of L5 on L6 on neutral, flexion and extension positions. No worsening listhesis with flexion or extension. XR/XR lumbar spine 4V min IMPRESSION: Multilevel degenerative changes, most severe at L2-3 through the lumbosacral junction, similar to 2023. Electronically signed by: Isra Cordero MD 05/22/2025 04:21 PM EST Dictated By: Isra Cordero MD Signed By: <Electronically signed by Isra Cordero MD in OV> 05/22/25 1621 DD/ 1543 TD/TT: 05/22/25 1547 Communications Advisor: [facility] [address] [place] [address] XRay Report Signed Patient: Selene Barry MR#: [id number] : 1955 Acct:[id number] Age/Sex: 70 / F ADM Date: 05/22/25 Loc: [facility] Attending Dr: Osmel MARADIAGA Ordering Physician: Osmel Mckoy Date of Service: 05/22/25 Procedure(s): XR lum bar spine 4V min Accession Number(s): [id number] cc: Aaron Rob MD; Osmel Mckoy Reason for Exam: Z98 .890 - Other specified postprocedural states EXAMINATION: XR LUMBAR SPINE 4 OR MORE VIEWS CLINICAL INFORMATION: Z98.890 - Other specified postprocedural states COMPARISON: Radiographs on [facility] 2023. TECHNIQUE: AP and lateral views of the lumbar spine were obtained. Lateral views were obtained in flexion, extension, and neutral positions. FINDINGS: The numbering of the vertebrae follows the same from previous radiograph in 2023. 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 Rotatory levoscoliosis. Redemonstration of l oss of disc height at multiple levels extending from L2-L3 through t he lumbosacral region. Mild anterior wedging deformity of T12 and L1 vertebral bodies and posterior wedging deformity of L5 vertebral body appears similar to 2023. Minimal grade 1 retrolisthesis of L1 on L2 on the neutral and extension positions. Minimal g rade 1 anterolisthesis of L5 on L6 on neutral, flexion and extensio n positions. No worsening listhesis with flexion or extension. X R/XR lumbar spine 4V min IMPRESSION: Multilevel degenerat shilpa changes, most severe at L2-3 through the lumbosacral junction , similar to 2023. Electronically kristine d by: Isra Cordero MD 05/22/2025 04:21 PM EST RP Dictated By: Isra Cordero MD Signed By: <Electronically signed by Isra Cordero MD in OV> 05/22/25 1621 DD/ 1543 TD/TT: 05/22/25 1547 Communications Advisor: MR lumbar spine wo con Reviewed date:06/06/2025 08:58:32 AM Interpretation: Performing Lab: Notes/Report: [address] [address] Magnetic Resonance Report Signed Patient: Selene Barry MR#: [id number] 3611 : 1955 Acct:[id number] Age/Sex: 70 / F ADM Date: 06/01/25 Loc: HO.MRI Attending Dr: Osmel MARADIAGA Ordering Physician: Osmel Mckoy Date of Service: 06/01/25 Procedure(s): MR lumbar spine wo con Accession Number(s): [id number] cc: Aaron Rob MD; Osmel Mckoy Reason for Exam: M54.16 - Radiculopathy, lumbar region CLINICAL HISTORY: M54.16 - Radiculopathy, lumbar region MR of the lumbar spine without contrast Comparison: DX/SR - XR LUMBAR SPINE 4 OR MORE VIEWS - 05/22/25 15:[address]/SR - CT LUMBAR SPINE WITHOUT IV CONTRAST - 05/11/24 13:18 EST MR/SR - MR LUMBAR SPINE WITHOUT IV CONTRAST - 03/14/24 20:11 EDT DX/SR - XR LUMBAR SPINE 4 OR MORE VIEWS - 02/03/24 10:14 EDT Findings: There are 6 ajq-iqj-xhuopwy lumbar-type vertebra. There is moderate levocurvature with the apex L3/L4. There is left lateral subluxation L4 on L5 by up to 1.3 cm. There is right lateral subluxation of L5 upon the transitional vertebra by up to 1.0 cm. 2 mm retrolisthesis of L1 on L2. 1 mm anterolisthesis of L2 on L3. 5 mm anterolisthesis of L5 upon the transitional vertebra. There is multilevel Modic type 2 change. There is a trace amount edema within the L4 vertebra, presumed to be degenerative. No cord expansion or abnormal signal intensity. The conus medullaris terminates at L2, which is the lower limit of normal. The cauda equina is unremarkable. Moderate to severe paraspinal muscular atrophy, asymmetric. There is edema within the subcutaneous fat. 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 T12/L1: 3 mm disc bulge. Moderate facet joint and ligamentum flavum hypertrophy. Mild central canal stenosis. No right and mild to moderate left lateral recess stenosis. No right and mild left foraminal stenosis. L1/L2: 1.0 cm right paracentral disc protrusion with concurrent 5 mm broad-based disc bulge. Moderate facet joint and ligamentum flavum hypertrophy. Severe central canal stenosis. Severe right and no left lateral recess stenosis. Mild right and no left foraminal stenosis. L2/L3: 4 mm broad-based disc bulge. Moderate to severe facet joint and ligamentum flavum hypertrophy. Moderate central canal stenosis. Mild right and severe left lateral recess stenosis. Gvgn-yc-zkpkvbwv right and mild left foraminal stenosis. L3/L4: 3 mm broad-based disc bulge. Severe facet joint and ligamentum flavum hypertrophy. Moderate central canal stenosis. Severe right and moderate left lateral recess stenosis. Severe right and no left foraminal stenosis. L4/L5: Postsurgical change with resection of the spinous process. The lamina are intact. There is disc desiccation with partial osseous fusion of the vertebra. There is a right paracentral disc protrusion measuring 3 mm. Severe facet joint hypertrophy. Ecov-vl-ebqfoiya central canal stenosis. Severe bilateral lateral recess stenosis. Moderate to severe right and rbfc-pl-zigqxaxz left foraminal stenosis. L5/transitional vertebra: Status post laminectomies. Uncovering of the disc with 7 mm disc bulge. Severe facet joint hypertrophy. Moderate to severe central canal stenosis greater to the left of midline. Severe bilateral lateral recess stenosis, left greater than right. Yexh-lq-prhsubbj right and severe left foraminal stenosis. Transitional vertebra/1st sacral vertebra: Disc desiccation a trace amount of disc seen to the right of midline measuring 2 mm. Moderate to severe facet joint hypertrophy. Mild central canal stenosis. Severe bilateral lateral recess stenosis. Moderate to severe right severe left foraminal stenosis. Impression: Severe multilevel degenerative change, detailed above. This document has been electronically signed by: Lillian Dodson MD on 06/05/2025 16:01:54 Dictated By: Lillian Elias MD Signed By: <Electronically signed by Lillian Elias MD in OV> 06/05/25 1602 DD/ 1601 TD/TT: 06/05/25 1601 Communications Advisor: [place] [id number] Magnetic Resonance Report Signed Patient: Selene Brary MR#: [id number] 3611 : 1955 Acct:[id number] Age/Sex: 70 / F ADM Date: 06/01/25 Loc: HO.MRI Attending Dr: Osmel MARADIAGA Ordering Physician: Osmel Mckoy Date of Service: 06/01/25 Procedure(s): MR lum bar spine wo con Accession Number(s): [id number] cc: Aaron Rob MD; Osmel Mckoy Reason for Exam: M54 .16 - Radiculopathy, lumbar region CLINICAL HISTORY: M5 4.16 - Radiculopathy, lumbar region MR of the lumbar spi ne without contrast Comparison: DX/SR - XR LUMBAR SPINE 4 OR MORE VIEWS - 05/22/25 15:[address]/SR - CT LUMBAR SP INE WITHOUT IV CONTRAST - 05/11/24 13:18 EST MR/SR - MR LUMBAR SP INE WITHOUT IV CONTRAST - 03/14/24 20:11 EDT DX/SR - XR LUMBAR SP INE 4 OR MORE VIEWS - 02/03/24 10:14 EDT Findings: There are 6 ozt-jen-tsorcff lumbar-type vertebra. There is moderate levocurvature with t he apex L3/L4. There is left lateral subluxation L4 on L5 by up to 1.3 cm. There is right lateral subluxation of L5 upon the transitional vertebr a by up to 1.0 cm. 2 mm retrolisthesis of L1 on L2. 1 mm anterolisthesis o f L2 on L3. 5 mm anterolisthesis of L5 upon the transitional vertebr a. There is multilevel Modic type 2 change. There is a trace amount edema within the L4 vertebra, presumed to be degenerative. No cord expansion or abnormal signal intensity. The conus medullaris terminates at L2, wh ich is the lower limit of normal. The cauda equina is unremarkable. Modera te to severe paraspinal muscular atrophy, asymmetric. There is edema withi n the subcutaneous fat. Edema is also present within the soft tissues including the musculature adjacent to L5 in the transitional vertebr a at the left aspect without edema within bone marrow; this likely indicate s denervation myositis. T12/L1: 3 mm disc bu lge. Moderate facet joint and ligamentum flavum hypertrophy. Mild central canal stenosis. No right and mild to moderate left lateral recess stenosis. No right and mild left foraminal stenosis. L1/L2: 1.0 cm right paracentral disc protrusion with concurrent 5 mm broad-based disc bul ge. Moderate facet joint and ligamentum flavum hypertrophy. Severe central canal stenosis. Severe right and no left lateral recess steno sis. Mild right and no left foraminal stenosis. L2/L3: 4 mm broad-ba sed disc bulge. Moderate to severe facet joint and ligamentum flavum hypertrophy. Moderate central canal stenosis. Mild right and severe left late ral recess stenosis. Wbbm-ee-dxvreool right and mild left foraminal stenosis. L3/L4: 3 mm broad-ba sed disc bulge. Severe facet joint and ligamentum flavum hypertrophy. Moderate central canal stenosis. Severe right and moderate left latera l recess stenosis. Severe right and no left foraminal stenosis. L4/L5: Postsurgical change with resection of the spinous process. The lamina are intact. T here is disc desiccation with partial osseous fusion of the vertebra. The re is a right paracentral disc protrusion measuring 3 mm. Severe facet kwame nt hypertrophy. Knee-aj-mngdhvfu central canal stenosis. Severe bilateral lateral recess stenosis. Moderate to severe right and unkr-de-ngcnxmta left foraminal stenosis. L5/transitional vertebra: Status post laminectomies. Uncovering of the disc with 7 mm disc bulge. Severe facet joint hypertrophy. Moderate to severe central canal stenosis greater to the left of midline. Severe bilateral lateral re cess stenosis, left greater than right. Vncx-lg-klmleicg rig ht and severe left foraminal stenosis. Transitional vertebra/1st sacral vertebra: Disc desiccation a trace amount of disc seen to the right of midline measuring 2 mm. Moderate to severe facet joint hypertro phy. Mild central canal stenosis. Severe bilateral lateral recess steno sis. Moderate to severe right severe left foraminal stenosis. Impression: Severe multilevel degenerative change, detailed above. This document has be en electronically signed by: Lillian Dodson MD on 06/05/2025 16:01:54 Dictated By: Lillian Elias MD Signed By: <Electronically signed by Lillian Elias MD in OV> 06/05/25 160 DD/ 160 TD/TT: 06/05/251600 Communications Advisor: Reason For Referral Reason osteoporosis Diagnosis 1 Age-related osteopor osis without current pathological fracture (M81.0) Referral Organization Aaron Rob MD Referring Provider First Name Aaron Referring Provider Last Name Darron Referring Provider Speciality Internal edicine Referred Provider Angelo Ramires Referred Provider Specialty Endocrinolog y General Notes Ursula Tracy 0 07/26/2024 03:26:47 PM >info faxed with [facility] spine [facility] office note Referral Priority Routine [...] APRIL 09 AT 220 PM , PATIENT AWARE, Valorie Christy 05/30/2025 03:33:03 PM >R/S BY PATIENT TO 08/01/25 10:20AM Referral Priority Routine Referral Appointment Date 08/01/2025 Reason DM Diagnosis 1 Type 2 diabetes santhosh itus treated without insulin (E11.9) Referral Organization Aaron Rob MD Referring Provider First Name Aaron Referring Provider Last Name Darron Referring Provider Speciality Internal M edicine Referred Provider Angelo Ramires Referred Provider Specialty Endocrinolog y General Notes Ursula Tracy 1 07/28/2024 10:09:42 AM >referral info refaxed Referral Priority Routine Medications Medication SIG (Take, Route, Frequency, Duration) Notes Start Date End Date Status Omeprazole 20 MG Take 1 capsule by [facility] once daily for 90 Active Docusate Sodium 100 MG 1 capsule as need ed Orally Once a day Not-Taking Synthroid 100 MCG 1 tablet in the morn ing on an empty stomach Orally Once a day Active Aspir-81 81 MG 1 tablet Orally Once a day Active Enbrel 50 MG/ML 1 mL Subcutaneous Not-Taking Calcium + D 315-200 MG-UNIT 1 tablet Orally 500/125 once a day Active Amoxicillin-Pot Clavulanate 875-125 MG 1 tablet Orally every 12 hrs for 7 days 08/25/2023 Not-Taking Atorvastatin Calcium 80 MG Take 1 tablet by mouth once daily Active Estradiol 0.1 MG/GM as directed Vaginal Two times a Week 10/11/2023 Active Lasix 20 MG 1 tablet Orally Once a day Active Albuterol Sulfate (2.5 MG/3ML) 0.083% 3 ml Inhalation Three times a day 06/15/2012 Active Januvia 50 MG 1 tab Orally daily 12/17/2024 Active Metoprolol Succinate ER 50 MG 1 tablet Orally twice a day Active Magnesium 250 MG 1 capsule Orally Onc e a day Active Ventolin HFA 108 (90 Base) MCG/ACT INHALE 1 PUFF BY MOUTH EVERY 4 HOURS NEEDED Active Immunizations Vaccine Route Administration Date Status [...] W/U Status Risk Notes Problem Hypercoagulable state (16334578) Secondary hypercoagulable state (289.82) Active confirmed Problem Spinal stenosis (42160832) Spinal stenosis (724.00) Active confirmed Problem 28175787 Age-related osteoporosis without current pathological fracture (M81.0) Active confirmed Problem 998323455 Thyroid nodule (E04.1) Active confirm ed Problem 66494152 Lymphocytosis (D72.820) Active confirmed Problem 660851294515149 USP (curre nt) use of systemic steroids (Z79.52) Active confirmed Problem 51295980 Lumbar disc dise ase (M51.9) Active confirmed Problem 68096253 Essential hypert ension (I10) Active confirmed Problem 459368437 Mild intermitten t asthma without complication (J45.20) Active confirmed Problem 106421582 Chronic systolic congestive heart failure (I50.22) Active confirmed Problem 39528904 Hyperthyroidism (E05.90) Active confirmed Problem 457289575 Rheumatoid arthr itis involving multiple sites, 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) Active confirmed Problem 931084350 Graves disease (E05.00) Active confirmed Problem 855769389 History of coron marie artery bypass graft (Z95.1) Active confirmed Problem 1851752 Thyromegaly (E04.9) Active confirmed Problem 895065513 Non-rheumatic mi tral regurgitation (I34.0) Active confirmed Problem 280141146 Thyroid cancer (C73) Active confirmed Problem 350680801 Vaginal bleeding (N93.9) Active confirmed Problem 21996947 Sciatica of righ t side (M54.31) Active confirmed Problem 16112606 Hypercholesterol emia (E78.00) Active confirmed Problem 2805124757907 Coronary artery disease of [place] artery of [place] heart with stable angina pectoris (I25.118) Active confirmed Problem 728897578 Atrophy of vagin a (N95.2) Active confirmed Problem History of hysterectomy (321342155) History of hysterectomy (Z90.710) Active confirmed Problem 899116210 Vaginal prolapse (N81.10) Active confirmed Problem Type II diabetes mellitus without complication (684756751) Type 2 diabetes mellitus treated without insulin (E11.9) Active confirmed Problem 0573042 Prediabetes (R73.09) Inactive confirmed Vital Signs Blood pressure diastolic 70 mm Hg 05/21/2025 doroteo ght is down 4 pounds since 04-23-25 Height 63.5 in 05/21/2025 weight is down 4 pounds since 04-23-25 Blood pressure systolic 132 mm Hg 05/21/2025 weig ht is down 4 pounds since 04-23-25 Weight 163 lbs 05/21/2025 weight is down 4 pounds since 04-23-25 BMI 28.42 kg/m2 05/21/2025 weight is down 4 pounds since 04-23-25 Encounters Encounter Location Date Provider Diagnosis Aaron Rob MD [address] [place], [place] [id number] 10/04/2024 Aaron Rob Essential hypertensi on I10 ; Prediabetes R73.09 ; Lymphocytosis D72.820 ; Chronic systolic congestive heart failure I50.22 ; Hyperthyroidism E05.90 and Hypercholesterolemia E78.00 Aaron Rob MD [address] [place] [address] [id number] 04/16/2025 Aaron Rob Type 2 diabetes santhosh itus treated without insulin E11.9 ; Encounter for administration of vaccine Z23 and Hypercholesterolemia E78.00 Aaron Rob MD [address] [place] [address] [id number] 06/11/2024 Aaron Rob Vaginal prolapse N81 .10 ; Essential hypertension I10 and Rheumatoid arthritis involving multiple sites, unspecified rheumatoid factor presence M06.9 Aaron Rob MD [address] [place] [address] [id number] 06/21/2024 Aaron Rob Mild intermittent as thma without complication J45.20 Aaron Rob MD [address] [place] [address] [id number] 06/29/2024 Aaron Rob Acute URI J06.9 Aaron Rob MD [address] [place] [address] [id number] 07/06/2024 Aaron Rob Mild intermittent as thma without complication J45.20 ; Hyperthyroidism E05.90 and Pneumonitis, interstitial J84.89 Aaron Rob MD [address] [place] [address] [id number] 10/11/2024 Aaron Rob Atrophy of vagina N9 5.2 ; Vaginal prolapse N81.10 ; Hematuria R31.9 ; Essential hypertension I10 ; Prediabetes R73.09 ; Mild intermittent asthma without complication J45.20 ; Chronic systolic congestive heart failure I50.22 ; Graves disease E05.00 and Hypercholesterolemia E78.00 Aaron Rob MD [address] [place] [address] [id number] 11/06/2024 Aaron Rob Essential hypertensi on I10 ; Rheumatoid arthritis involving multiple sites, unspecified rheumatoid factor presence M06.9 and Type 2 diabetes mellitus treated without insulin E11.9 Aaron Rob MD [address] [place] [address] [id number] 11/13/2024 Aaron Rob Type 2 diabetes santhosh itus treated without insulin E11.9 Aaron Rob MD [address] [place] [address] [id number] 11/29/2024 Aaron Avelinaardier Type 2 diabetes santhosh itus treated without insulin E11.9 and Headache, unspecified R51.9 Aaron Rob MD [address] [place] [address] [id number] 12/14/2024 Aaron Quanardier Type 2 diabetes santhosh itus treated without insulin E11.9 and Rectal bleeding K62.5 Aaron Rob MD [address] [place] [address] [id number] 01/14/2025 Aaron Quanardimarina Type 2 diabetes santhosh itus treated without insulin E11.9 ; Lumbar disc disease M51.9 and Essential hypertension I10 Aaron Rob MD [address] [place] [address] [id number] 01/25/2025 Aaron Quanardimarina Type 2 diabetes santhosh itus treated without insulin E11.9 and Lumbar disc disease M51.9 Aaron Rob MD [address] [place] [address] [id number] 04/23/2025 Aaron Rob History of hysterect ravinder Z90.710 ; Vaginal bleeding N93.9 ; Essential hypertension I10 and 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 Aaron Rob MD [address] [place] [address] [id number] 05/21/2025 Aaron Rob Type 2 diabetes santhosh itus treated without insulin E11.9 and Lumbar disc disease M51.9 Aaron Rob MD [address] [place] [address] [id number] 11/29/2024 Aaron Rob MD [address] [place] [address] [id number] 12/03/2024 Aaron Rob MD [address] [place] [address] [id number] 12/03/2024 Aaron Rob MD [address] [place] [address] [id number] 12/04/2024 Aaron Rob MD [address] [place] [address] [id number] 12/14/2024 Aaron Rob MD [address] [place] [address] [id number] 12/17/2024 Aaron Rob MD [address] [place] [address] [id number] 01/17/2025 Aaron Rob MD [address] [place] [address] [id number] 05/12/2025 Aaron Rob Assessments Encounter Date Diagnosis (ICD [...] J06.9) THE XRAY ORDER WAS FAXED TO [facility] PATIENT REG. PATIENT AWARE, patient verbalized understanding [...] treated without insulin (ICD-10 - E11.9) consult consumer educator, patient will continue current regiment 11/29/2024 [...] (ICD -10 - K62.5) referral to dr mcgrary Total time spent on the date of [...] Z90.710) need notes from dr wolfe at [facility] 04/23/2025 Vaginal bleeding (ICD-10 - N93.9) has a hysterectomy and is doing well 05/21/2025 Type 2 diabetes mellitus treated without insulin (ICD-10 - E11.9) trying to see dr ramires 05/21/2025 Lumbar disc disease (ICD-10 - M51.9) if she continues to have pain to go back to the spine center 10/04/2024 Prediabetes (ICD-10 - R73.09) 04/16/2025 Hypercholesterolemia [...] Name:Aaron Atkinson ier, 06/18/2025 11:30:00 AM, [address] [facility], [address], [place], [place], [id number], Provider Name:Aaron Atkinson ier, 10/08/2025 07:45:00 AM, [address], [place], [place], [phone], Provider Name:Aaron Atkinson ier, 10/15/2025 09:30:00 AM, [address] [facility], [address], [place], [place], [phone], Insurance Providers Payer Name Payer Address Payer Phone Subscriber Number Group Number Insured Name Patient Relationship to Insured Coverage Start Date Coverage End Date MEDICARE [employer] [address] [place] [address] [id number] Selene Valdovinos Self - patient is the insured Medical (General) History Medical History History ICD Code colonoscopy - 03/2008 hyperp lastic polyp due 03/[address] Mcgarry; Colonoscopy done 07/14/[address] 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
== END 2025-06-06 13:52 | disposition home or self-care (01) ==
LOC: HO.RHES 12:43
PROVIDERS: PCP Internal Medicine; Visit Provider Student in an Organized Health Care Education/Training Program
DX: M05.79 Rheumatoid arthritis with rheumatoid factor of multiple sites without organ or systems involvement (principal); M79.7 Fibromyalgia; M75.51 Bursitis of right shoulder; M75.52 Bursitis of left shoulder
CPT/HCPCS: 20610; 99214

== ENCOUNTER → 2025-06-06 12:42 | Outpatient (BNVA) | payer MEDICARE, SELFPAY | PROVIDERS: PCP Internal Medicine; Visit Provider Student in an Organized Health Care Education/Training Program | DX: M05.79 Rheumatoid arthritis with rheumatoid factor of multiple sites without organ or systems involvement (principal); M79.7 Fibromyalgia; M75.51 Bursitis of right shoulder; M75.52 Bursitis of left shoulder | CPT/HCPCS: 20610; 99212; J2003; J3301 ==

== ENCOUNTER 2025-06-17 14:05 | Outpatient (AMB) | payer MEDICARE, SELFPAY ==
--- OUTSIDE RECORDS SUMMARY | 2024-12-14 05:30 | XMS_ITS ---
Author Organization Aaron Rob MD Address [address] [place] [phone] Care Team Providers Care Dividend Deposit Voucher Clerk Name Role Phone Aaron Rob Primary [...] Omeprazole 20 MG Take 1 capsule by [facility] once daily for 90 Active Docusate Sodium [...] kg/m2 12/14/2024 weight is down 4 pounds [facility] e 11-29-24 Encounters Encounter Location Date Provider Diagnosis Aaron Rob MD [address] [place] [address] [address] [place], [place] [phone] 12/14/2024 Aaron Rob Type 2 diabetes mellitus [...] Provider Name:Aaron Atkinson ier, 06/18/2025 11:30:00 AM, [address] [place] [address], Suite [facility], [place], [place], [phone], Provider Name:Aaron Atkinson ier, 10/08/2025 07:45:00 AM, [address] [place] [address], Suite [facility], [place], [place], [phone], Provider Name:Aaron Atkinson ier, 10/15/2025 09:30:00 AM, [address] [place] [address], [place] [address], [place], [place], [phone], Progress Notes * Gian BARRYwhitneyDOB: [birth year] (69 yo F)Acc No.[id number]:12/14/2024 Progress Notes Patient: Selene EASTON Provider: Josh Rob MD :1955 A ge:69 Y S ex:Female Date:12/14/2024 Address:[address] [place] [phone] Subjective: * Chief Complaints: * 2 weekAccompanied [...] 12/14/2024 Generated for Printi ng/Faesperanzag/eTransmitting on: 1 08/18/2024 05:34 PM EST History and Physical Notes * [...]
--- OUTSIDE RECORDS SUMMARY | 2024-12-14 05:57 | XMS_ITS ---
Author Organization Aaron Rob MD Address 10 [facility] [address] [place] [phone] Care Team Providers Care Line Lead Name Role Phone Aaron Rob Primary Care Provider REASON FOR VISIT SURGERY CLERANCE NOTE Encounters Encounter Location Date Provider Diagnosis Aaron Rob MD [address] [place] [address] [place] [phone] 12/14/2024 Aaron Rob Plan Of Treatment Next Appt Details Provider Name:Aaron deleon, 06/18/2025 11:30:00 AM, [address] [place] [address], [address], [phone], Provider Name:Aaron deleon, 10/08/2025 07:45:00 AM, [address] [place] [address], [address], [phone], Provider Name:Aaron Edi Avelinaluz marina adrienne, 10/15/2025 09:30:00 AM, [address], [address], [place], [place], [phone], Progress Notes * Selene BARRYDOB: [birth year] (69 yo F)Acc No.[id number]:12/14/2024 Patient: Selene EASTON :1955 A ge:69 Y S ex:Female Address:[address] [place] [phone] * true * Date: Generated for Julius pittman/Fito/Dionnaitting on: 08/18/2024 05:35 PM EST
--- OUTSIDE RECORDS SUMMARY | 2024-12-17 04:30 | XMS_ITS ---
Author Organization Aaron Rob MD Address [address] [facility] [address] [place] [phone] Care Team Providers Care Container Coordinator Name Role Phone Aaron Rob Primary Care Provider [phone] REASON FOR VISIT sick from Metformin Medications Medication SIG (Take, Route, Frequency, Duration) Notes Start Date End Date Status Januvia 50 MG 1 tab Orally daily for 30 days 12/17 Active Encounters Encounter Location Date Provider Diagnosis Aaron Rob MD 10 [facility] [address] [place] [phone] 12/17/2024 Aaron Rob Plan Of Treatment Medication Medication Name Sig Start Date Stop Date Notes Januvia 50 MG 1 tab Orally daily for 30 days 12/17/2024 Next Appt Details Provider Name:Aaron deleon, 06/18/2025 11:30:00 AM, [address] [place] [address], [address] [place] [address], [phone], Provider Name:Aaron Atkinson adrienne, 10/08/2025 07:45:00 AM, 10 [facility], [address], [place], [phone], Provider Name:Aaron Atkinson allenr, 10/15/2025 09:30:00 AM, 10 [facility], [address], [place], [phone], Progress Notes * Selene BARRYDOB: [birth year] (69 yo F)Acc No.[id number]:12/17/2024 Patient: Nohemi Selene MARIE :1955 A ge:69 Y S ex:Female Address:[address] [place] [phone] * Refills Start Januvia Tablet, 50 MG, Orally, 30 Tablet, 1 tab, daily, 30 days, Refills=5 * true * Date: Generated for Julius pittman/Fito/eTransmitting on: 1 08/18/2024 05:33 PM EST
--- OUTSIDE RECORDS SUMMARY | 2025-01-14 04:00 | XMS_ITS ---
Author Organization Aaron Rob MD Address [address] [place] [phone] Care Team Providers Care Mechanical Energy Engineer Name Role Phone Aaron Rob Primary Care Provider Allergies No Known Allergies Results Component Value Reference Range Notes Glucose, finger stick Reviewed date:01/14/2025 08:53:15 AM Interpretation: Performing Lab: Notes/Report: Value 142 REASON FOR VISIT 4 week follow up appt Medications Medication SIG (Take, Route, Frequency, Duration) Notes Start Date End Date Status Calcium + D 315-200 MG-UNIT 1 tablet Orally 500/125 once a day Active Aspir-81 81 MG 1 tablet Orally Once a day Active Magnesium 250 MG 1 capsule Orally Onc e a day Active Synthroid 100 MCG 1 tablet in the morn ing on an empty stomach Orally Once a day Active Omeprazole 20 MG Take 1 capsule by [facility] once daily for 90 Active Januvia 50 MG 1 tab Orally daily 12/17/2024 Active Docusate Sodium 100 MG 1 capsule as need ed Orally Once a day Not-Taking Amoxicillin-Pot Clavulanate 875-125 MG 1 tablet Orally every 12 hrs for 7 days 08/25/2023 Not-Taking Enbrel 50 MG/ML 1 mL Subcutaneous Not-Taking [...] Signs Blood pressure systolic 142 mm Hg 01/15/20 25 Blood pressure diastolic 74 mm Hg 025 Height 63.5 in 01/14/2025 Weight 169 lbs 01/14/2025 BMI 29.46 kg/m2 01/14/2025 weight is down 6 pounds sin e 12-14-24 Encounters Encounter Location Date Provider Diagnosis Aaron Rob MD 10 [facility] [address] [place], [place] [phone] 01/14/2025 Aaron Rob Type 2 diabetes mellitus treated without insulin E11.9 ; Lumbar disc disease M51.9 and Essential hypertension I10 Assessments Encounter Date Diagnosis (ICD Code) Assessment Notes Treatment Notes Treatment Clinical Notes Section Notes 01/14/2025 Type 2 diabetes mellitus treated without insulin (ICD-10 - E11.9) doing much better this week as is doing diet now 01/14/2025 Lumbar disc disease (ICD-10 - M51.9) going for surgery this week 01/14/2025 Essential hypertension (ICD-10 - I10) runing high today but didn't take her meds yet. will continue to monitor and continue current regiment Plan Of Treatment Medication Medication Name Sig Start Date Stop Date Notes Januvia 50 MG 1 tab Orally daily 12/17/2024 Metoprolol Succinate ER 50 MG 1 tablet Orally twice a day Treatment Notes Assessment Notes Type 2 diabetes mellitus yuko ated without insulin doing much better this week as is doing diet now Lumbar disc disease going for surgery th is week Essential hypertension runing high today but didn't take her meds yet. will continue to monitor and continue current regiment Next Appt Details Provider Name:Aaron Atkinson ier, 06/18/2025 11:30:00 AM, [address], [address], [place], [place], [phone], Provider Name:Aaron Atkinson ier, 10/08/2025 07:45:00 AM, [address], [address], [place], [place], [phone], Provider Name:Aaron Atkinson ier, 10/15/2025 09:30:00 AM, [address], Suite [facility], [place], [place], [phone], Progress Notes * BARRYSelene GALLEGOSDOB: [birth year] (69 yo F)Acc No.[id number]:01/14/2025 Progress Notes Patient: Selene EASTON Provider: Josh Rob MD :1955 A ge:69 Y S ex:Female Date:01/14/2025 Address:[address] [place] [phone] Subjective: * Chief Complaints: * 4 week follow up appt * HPI: S ymptom(s): patient is a 69 yo female here for 4 week follow up visit/ going to have back xurgery this week. checking sugars. around 150. * ROS: G eneral/Constitutional: Denies C hills. D enies F atigue. D enies F ever. D enies H eadache. E NT: Denies S ore throat. E ndocrine: Denies D ifficulty sleeping. D enies D izziness.?Denies E xcessive sweating. D enies E xcessive thirst. D enies F requent urination. R espiratory: Denies C ough. D enies S hortness of breath at rest. D enies S hortness of breath with exertion. G astrointestinal: Denies D iarrhea. D enies N ausea. * [...] Hour 1 tablet Orally twice a day Januvia 50 MG Tablet 1 tab Orally daily Taking Magnesium 250 MG Capsule 1 capsule [...] 1 tablet Orally twice a day Taking Januvia 50 MG Tablet 1 tab Orally daily Not-Taking/PRNEnbrel 50 MG/ML Solution Prefilled Syringe [...] capsule as needed Orally Once a day DiscontinuedmetFORMIN HCl 500 MG Tablet 1 tablet Orally twice a day Medication List reviewed and reconciled with the patientDiscontinued metFORMIN HCl 500 MG Tablet 1 tablet Orally twice a day Medication List reviewed and reconciled with the patient * Allergies: N .K.D.A.yes[Allergies Verified] Objective: * Vitals: H t: 63.5, Wt: 169, BMI:29.46, BP:142/74, Repeat BP:155/76, Wt-k.66. weight is down 6 pounds since 12-14-24. * Examination: G eneral Examination: GENERAL APPEARANCE: a lert, well hydrated, in no distress.? HEAD: n ormocephalic. SKIN: g ood turgor. HEART: n o murmurs, rubs, gallops, regular rate and rhythm.? LUNGS: n o wheezes, rales, rhonchi, good air movement, clear to auscultation bilaterally. Assessment: * Assessment: 1. T ype 2 diabetes mellitus treated without insulin - E11.9 (Primary) 2 . L umbar disc disease - M51.9 3 . E ssential hypertension - I10 Plan: * Treatment: Value Reference Range V alue 142 Notes: doing much better this week as is doing diet now??2.?Lumbar disc disease? Notes: going for surgery this week??3.?Essential hypertension? Continue Metoprolol Succinate ER Tablet Extended Release 24 Hour, 50 MG, 1 tablet, Orally, twice a day.?? Notes: runing high today but didn't take her meds yet. will continue to monitor and continue current regiment?? * Procedure Codes: 8 2947 ASSAY, GLUCOSE, BLOOD QUANT, Modifiers: QW * * Sign off status: Completed true * Provider: Josh Rob MD Date: 0 01/14/2025 Generated for Julius pittman/Fito/eTbeckiesmitting on: 1 08/18/2024 05:33 PM EST History and Physical Notes * HPI (History of Present Illness) Category Sub-Category Detail Notes Category Not es Symptom(s) patient is a 69 yo female here for 4 week follow up visit/ going to have back xurgery this week. checking sugars. around 150 Examination Category Sub-Category Detail Notes Category Not es General Examination GENERAL APPEARANCE: alert, w ell hydrated, in no distress HEAD: normocephalic HEART: no murmurs, rubs, ga llops, regular rate and rhythm LUNGS: no wheezes, rales, r honchi, good air movement, clear to auscultation bilaterally SKIN: good turgor
--- OUTSIDE RECORDS SUMMARY | 2025-01-17 05:03 | XMS_ITS ---
Author Organization Aaron Rob MD Address [address] [facility] [address] [place] [phone] Care Team Providers Care Pellet Preparation Operator Name Role Phone Aaron Rob Primary Care Provider REASON FOR VISIT discharge Encounters Encounter Location Date Provider Diagnosis Aaron Rob MD [address] [place] [address] [place] [phone] 01/17/2025 Aaron Rob Plan Of Treatment Next Appt Details Provider Name:Aaron deleon, 06/18/2025 11:30:00 AM, [address] [place] [address], [address], [phone], Provider Name:Aaron deleon, 10/08/2025 07:45:00 AM, [address] [place] [address], [address], [phone], Provider Name:Aaron Edi China deleon, 10/15/2025 09:30:00 AM, [address], [address], [place], [phone], Progress Notes * Selene BARRYDOB: [birth year] (69 yo F)Acc No.[id number]:01/17/2025 Patient: Selene EASTON :1955 A ge:69 Y S ex:Female Address:[address] [place] [address] [place] [phone] * true * Date: Generated for Julius pittman/Fito/Dionnaitting on: 08/18/2024 05:33 PM EST
--- OUTSIDE RECORDS SUMMARY | 2025-01-25 04:15 | XMS_ITS ---
Author Organization Aaron Rob MD Address [address] [place] [phone] Care Team Providers Care Sales Representative Printing Supplies Name Role Phone Aaron Rob Primary Care Provider Results Component Value Reference Range Notes Glucose, [...] 20 MG Take 1 capsule by [facility] once daily for 90 Active Calcium + [...] Rob MD [address] [place], [place] [phone] 01/25/2025 Aaron Rob Type 2 diabetes mellitus [...] 2 Months, Reason: dm Provider Name:Aaron deleon, 06/18/2025 11:30:00 AM, [address], [address], [place], [place], [phone], Provider Name:Aaron Atkinson ier, 10/08/2025 07:45:00 AM, [address], [address], [place], [place], [phone], Provider Name:Aaron Atkinson ier, 10/15/2025 09:30:00 AM, [address], [address], [place], [phone], Progress Notes * Selene BARRYDOB: [birth year] (69 yo F)Acc No.[id number]:01/25/2025 Progress Notes Patient: Selene EASTON Provider: Josh Rob MD :1955 A ge:69 Y S ex:Female Date:01/25/2025 Address:[address] [place], [place] [phone] Subjective: * Chief Complaints: * F /u [...] 0 01/25/2025 Generated for Julius pittman/Fito/Dionnaitting on: 08/18/2024 05:34 PM EST History and Physical [...]
--- OUTSIDE RECORDS SUMMARY | 2025-04-09 09:20 | XMS_ITS ---
Author Organization [facility] Address [address] [place] [address] Care Team Providers Care Cash Office Worker Name Role Phone Darron PIERCE, Aaron Primary Care Provider Angelo Caceres [phone] REASON FOR VISIT Patient presents today for a rectal bleeding Encounters Encounter Location Date Provider Diagnosis [facility] 10 [facility] [address] [place] [phone] 04/09/2025 Angelo Lan Plan Of Treatment Next Appt Details Provider Name:Angelo Lan , 08/01/2025 10:20:00 AM, [address], [address], [place], [address], Progress Notes * BERT KRAFTDOB: [birth year] (70 yo F)Acc No.[id number]:04/09/2025 Progress Notes Patient: BERT EASTON Provider: Lavelle Lan MD :1955 A ge:70 Y S ex:Female Date:04/09/2025 Address:[address] [place], [place] [phone] Pcp:Aaron Rob MD Subjective: * Chief Complaints: * P atient presents today for a rectal bleeding * The named appointment provid er may or may not be the originator of this progress note, and it is not deemed complete until electronically signed by the appointment provider. Sign off status: Pending * Provider: Lavelle Lan MD Date: 1 Generated for Printi ng/Faesperanzag/eTransmitting on: 1 08/18/2024 05:34 PM EST
--- OUTSIDE RECORDS SUMMARY | 2025-04-16 02:30 | XMS_ITS ---
Author Organization Aaron Rob MD Address [address] [place] [phone] Care Team Providers Care Footwear Factory Worker Name Role Phone Aaron Rob Primary Care Provider Results Component Value Reference Range Notes Liver Panel Reviewed date:04/16/2025 03:56:30 PM Interpretation: Performing Lab:[facility], [address] [place] [phone] Notes/Report: Bilirubin Total 0.4 0.0-1.0 mg/dL Bilirubin Direct 0.2 0.0-0.5 mg/dL Aspartate Amino Transferase 31 5-31 U/L Alanine Aminotransferase 12 0-31 U/L Total Protein 6.9 6.5-8.0 g/dL Albumin Level 3.8 3.5-5.0 g/dL Alkaline Phosphatase 125 39-117 U/L Glucose Fasting Reviewed date:04/16/2025 03:57:54 PM Interpretation: Performing Lab:[facility], [address] [place] [phone] Notes/Report: Glucose Fasting 118 60-99 mg/dL A fasting glucose from 100-125 mg/dl is considered impaired (pre-diabetes). Lipid Panel with Reflex Reviewed date:04/16/2025 04:02:18 PM Interpretation: Performing Lab:[facility], [address] [place] [phone] Notes/Report: Triglycerides 224 <150 mg/dL Desirable Triglyceride: less than 150 mg/dL Borderline High Triglyceride 150-199 mg/dL High Triglyceride: 200-499 mg/dL Very High Triglyceride: greater than or equal to 5OO mg/dL Cholesterol 112 <200 mg/dL Desirable Cholesterol: less than 200 mg/dL Borderline High Cholesterol: 200-239 mg/dL High Cholesterol: greater than 239 mg/dL LDL Cholesterol Calculated 39 <100 mg/dL Desirable LDL: less than 100 mg/dL Near Optimal/Above Optimal LDL: 110-129 mg/dL Borderline High LDL: 130-159 mg/dL High LDL: 160-189 mg/dL Very High LDL: greater than or equal to 190 mg/dL HDL Cholesterol 29 >40 mg/dL Desirable HDL: greater than 40 mg/dL Note: This HDL assay may give artificially low results in patients with liver disease. Hemoglobin A1c Reviewed date:04/16/2025 12:25:34 PM Interpretation: Performing Lab:[facility], [address] [place] [phone] Notes/Report: Hemoglobin A1c % 5.6 <6.0 % Hemoglobin A1C Reference Range Adults: 4.8 - 6.0 % Non diabetic: < 6.0 % Goal: < 7.0 % Additional Action Suggested: > 8.0 % Note: Hemoglobin A1c results are invalid for patients with abnormal amounts of HbF. Blood transfusions may impact the HbA1c concentration in the patient sample. Estimated Average Glucose 114 eAG = Estimated average glucose which is %A1C expressed as average glucose, using the formula of the L9Q-Lhrgrvw Average Glucose study (ADAG), Diabetes Care, Vol.31,#8, 2007 REASON FOR VISIT FASTING LIPIDS Immunizations Vaccine Route Administration Date Status Comme nts Influenza High Dose IM Intramuscular 04/16/2025 Administer ed Encounters Encounter Location Date Provider Diagnosis Aaron Rob MD [address] [place] [address] [place] [phone] 04/16/2025 Aaron Rob Type 2 diabetes santhosh itus treated without insulin E11.9 ; Encounter for administration of vaccine Z23 and Hypercholesterolemia E78.00 Assessments Encounter Date Diagnosis (ICD Code) Assessment Notes Treatment Notes Treatment Clinical Notes Section Notes 04/16/2025 Type 2 diabetes santhosh itus treated without insulin (ICD-10 - E11.9) 04/16/2025 Encounter for administration of vaccine (ICD-10 - Z23) 04/16/2025 Hypercholesterolemia (ICD-10 - E78.00) Plan Of Treatment Next Appt Details Provider Name:Aaron Atkinson ier, 06/18/2025 11:30:00 AM, [address] [place] [address], [address] [place] [address], [phone], Provider Name:Aaron Atkinson ier, 10/08/2025 07:45:00 AM, [address] [place] [address], [address], [phone], Provider Name:Aaron Atkinson ier, 10/15/2025 09:30:00 AM, [address] [place] [address], [address], [phone], Progress Notes * BARRYGian GALLEGOSwhitneyDOB: [birth year] (70 yo F)Acc No.[id number]:04/16/2025 Progress Note Patient: Selene EASTON Provider: Josh Rob MD :1955 A ge:70 Y S ex:Female Date:04/16/2025 Address:[address] [place] [phone] Subjective: * Chief Complaints: * 1 . FASTING LIPIDS. * Medical History: Objective: * Vitals: Assessment: * Assessment: 1. E ncounter for administration of vaccine - Z23 (Primary) 2 . T ype 2 diabetes mellitus treated without insulin - E11.9 3 . H ypercholesterolemia - E78.00 Plan: * Treatment: 2. H ypercholesterolemia L AB: Liver Panel (Collection Date & Time - 04/16/2025 07:30 AM) L AB: Glucose Fasting (Collection Date & Time - 04/16/2025 07:30 AM) L AB: Lipid Panel with Reflex (Collection Date & Time - 04/16/2025 07:30 AM) L AB: Hemoglobin A1c (Collection Date & Time - 04/16/2025 07:30 AM) * Immunizations: Influenza High Dose : 0.5 mL (Dose No:1) (Route: Intramuscular) given by Kyung Cordova , Office Staff on Right Deltoid * Procedure Codes: 3 6415 VENIPUNCT, ROUTINE*, 93922 FLU VACC PRSV FREE INC ANTIG, G0008 ADMN FLU VAC NO FEE SCHED SAME DAY * * The named appointment provid er may or may not be the originator of this progress note, and it is not deemed complete until electronically signed by the appointment provider. Sign off status: Pending * Provider: Josh Rob MD Date: 1 Generated for Julius pittman/Fito/Dionnaitting on: 1 08/18/2024 05:34 PM EST
--- OUTSIDE RECORDS SUMMARY | 2025-04-23 05:15 | XMS_ITS ---
Author Organization Aaron Rob MD Address [address] [place] [phone] Care Team Providers Care Surgical Technology Instructor Name Role Phone Aaron Rob Primary [...] Omeprazole 20 MG Take 1 capsule by [facility] once daily for 90 Active Docusate Sodium [...] Status Risk Notes Problem History of hysterectomy (404511764) History of hysterectomy (Z90.710) Active confirmed Vital Signs Blood pressure systolic 144 mm Hg 04/23/20 25 Blood pressure diastolic 80 mm Hg 025 Height 63.5 in 04/23/2025 Weight 167 lbs 04/23/2025 BMI 29.12 kg/m2 04/23/2025 Encounters Encounter Location Date Provider Diagnosis Aaron Rob MD [address] [place], [place] [phone] 04/23/2025 Aaron Rob History of hysterectomy Z90.710 ; Vaginal bleeding N93.9 ; Essential hypertension I10 and 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 Assessments Encounter Date Diagnosis (ICD Code) Assessment Notes Treatment Notes Treatment Clinical Notes Section Notes 04/23/2025 History of hysterectomy (ICD-10 - Z90.710) need notes from dr wolfe at [facility] 04/23/2025 Vaginal bleeding (ICD-10 - N93.9) has [...] History of hysterectomy need notes from dr wolfe at [facility] Vaginal bleeding has a hysterectomy a nd [...] Name:Aaron Atkinson ier, 06/18/2025 11:30:00 AM, [address] [facility], [address], [place], [place], [phone], Provider Name:Aaron Atkinson ier, 10/08/2025 07:45:00 AM, [address], [address], [place], [place], [phone], Provider Name:Aaron Atkinson ier, 10/15/2025 09:30:00 AM, [address] [facility], Suite [facility], [place], [place], [phone], Progress Notes * Selene BARRYDOB: [birth year] (70 yo F)Acc No.[id number]:04/23/2025 Progress Notes Patient: Gian EASTONmen Provider: Josh Rob MD :1955 A ge:70 Y S ex:Female Date:04/23/2025 Address:[address] [place] [phone] Subjective: * Chief Complaints: * 2 month [...] Date: 1 Generated for Julius pittman/Fito/Riosmitting on: 08/18/2024 05:34 PM EST History and [...]
--- OUTSIDE RECORDS SUMMARY | 2025-05-12 13:29 | XMS_ITS ---
Author Organization Aaron Rob MD Address [address] [place] [phone] Care Team Providers Care Pediatric Physical Therapist Name Role Phone Aaron Rob Primary Care Provider REASON FOR VISIT ER Encounters Encounter Location Date Provider Diagnosis Aaron Rob MD 10 [facility] [address] [place] [phone] 05/12/2025 Aaron Rob Plan Of Treatment Next Appt Details Provider Name:Aaron deleon, 06/18/2025 11:30:00 AM, [address] [place] [address], [address], [phone], Provider Name:Aaron deleon, 10/08/2025 07:45:00 AM, [address] [place] [address], [address], [phone], Provider Name:Aaron Edi China deleon, 10/15/2025 09:30:00 AM, [address], [address], [place], [phone], Progress Notes * Selene BARRYDOB: [birth year] (70 yo F)Acc No.[id number]:05/12/2025 Patient: Selene EASTON :1955 A ge:70 Y S ex:Female Address:[address] [place] [address] [facility] [place] [address] * true * Date: Generated for Julius pittman/Fito/Dionnaitting on: 08/18/2024 05:34 PM EST
--- OUTSIDE RECORDS SUMMARY | 2025-05-21 05:15 | XMS_ITS ---
Author Organization Aaron Rob MD Address [address] [place] [phone] Care Team Providers Care Distillery Miller Name Role Phone Aaron Rob Primary Care Provider [phone] Allergies No Known Allergies Reason For [...] Omeprazole 20 MG Take 1 capsule by [facility] once daily for 90 [...] kg/m2 05/21/2025 weight is down 4 pounds [facility] 04-23-25 Encounters Encounter Location Date Provider Diagnosis Aaron Rob MD [address] [place] [address] [place] [id number] 05/21/2025 Aaron Rob Type 2 diabetes mellitus [...] Referrals Referral Date Details 05/21/2025 05/21/2025, DM, Joeurszula rt Kamran Next Appt Details Follow Up: 4 Weeks, Reason: Provider Name:Aaron Atkinson ier, 06/18/2025 11:30:00 AM, [address] [place] [address], Suite [facility], [place], [place], [phone], Provider Name:Aaron Atkinson ier, 10/08/2025 07:45:00 AM, [address] [place] [address], Suite [facility], [place], [place], [phone], Provider Name:Aaron Atkinson ier, 10/15/2025 09:30:00 AM, [address] [place] [address], Suite [facility], [place], [place], [phone], Progress Notes * Selene BARRYDOB: [birth year] (70 yo F)Acc No.[id number]:05/21/2025 Patient: Nohemi Selene MARIE Provider: Josh Rob MD :1955 A ge:70 Y S ex:Female Date:05/21/2025 Address:[address] [place] [phone] Subjective: * Chief Complaints: * 2 week [...] Rob MD Date: 07/21/2024 Generated for Julius pittman/Fito/Riosmitting on: 08/18/2024 05:35 PM EST History and Physical Notes * [...]
--- NOTE | 2025-06-17 14:29 | HO.SPINEOV ---
Intake Visit Reasons: surgical discussion Intake Note: Ms. Barry is here today to Discuss surgical options. 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 We obtained an MRI of the lumbar spine which re-demonstrated the severe lateral deformity of L4-5, with the accompanying nerve compression. After review of her previous CT and MRI imaging, Dr. Beltran was willing to offer the patient a L4-5 TLIF. However, the patient came in for a clinic visit today, and reports resolution of her back pain. She states that she was recently seen by a web machine tender and received several cortisone injections alongside a new prescription for gabapentin. She feels that her back pain has resolved since then. I encouraged her to continue follow up with the web machine tender, into come back to see us if she has a recurrences severe low back pain. We will need to re-evaluate her but may still consider fusion as her pain may be transient and related to the loading dose of cortisone she was given. Osmel Beltran MD,PhD [facility] Coding Level of Care Code Est Pt Level 1 (92114) Diagnoses Lumbago M54.50
--- OUTSIDE RECORDS SUMMARY | 2025-06-17 17:34 | XMS_ITS | Patient Health Record ---
Author Organization [facility] Address [address] [place] [address] Care Team Providers Care Daycare Teacher Name Role Phone Aaron Rob MD Primary Care Provider Angelo Caceres [phone] Reason For Referral No Information Medications Medication [...] Problem Screening for malignant neoplasm of colon (779654007) Encounter for screening for malignant neoplasm of colon (Z12.11) Active confirmed Problem Gastroesophageal reflux disease without esophagitis (090775817) Gastroesophageal reflux disease without esophagitis (K21.9) Active confirmed Encounters Encounter Location Date Provider Diagnosis [facility] [address] [place] [address] 04/05/2025 Angelo Lan Plan Of Treatment Future Test Test Name Order Date COLONOSCOPY 05/30/2018 Next Appt Details Provider Name:Angelo Lan , 08/01/2025 10:20:00 AM, [address] [facility], [address], [place], [address], Insurance Providers Payer Name Payer Address Payer Phone Subscriber Number Group Number Insured Name Patient Relationship to Insured Coverage Start Date Coverage End Date MEDICARE OF [place] [address] [place] [address] [id number] BERT HOOD Self - patient is the insured Medical (General) History Medical History History ICD Code Denies IA,DM,CVA,Lung disease,renal dise ase HTN CAD-with 3-V CABG as below--had CHF Rheumatoid arthritis Hyperthyroidism GERD--EGD in 03/2008--small HH, no esoph agitis, no Rubio'a Screening colonoscopy in 2007--hyperplastic polyp, sigmoid diverticulosis, small internal hemorrhoids Surgical History Surgery Date(Month/Year) 3-V CABG 04/11/2018 Back surgery
--- OUTSIDE RECORDS SUMMARY | 2025-06-17 17:35 | XMS_ITS | Encounter Summary ---
Author Organization [employer] Address [address] [place] [address] Care Team Providers Care Erisa Attorney Name Role Phone Unavailable Primary Care Provider Unavailabl e Encounter Details Date Type Department Care Team (Late st Contact Info) Description 03/01/2023 Abstract [facility] [address] [place] [address] Sunny Martin, DMD [address] [place] [address] Social History Tobacco Use Types Packs/Day Years [...]
--- OUTSIDE RECORDS SUMMARY | 2025-06-17 17:35 | XMS_ITS | Clinical Summary ---
Author Organization [employer] Address [address] [place] [address] [address] [place] [address] Care Team Providers Care Poultry Hatchery Manager Name Role Phone Unavailable Primary Care [...] Recently Relevant to Health Maintenance Insurance MEDICARE [facility] MEDICAID [facility] ADULT
--- OUTSIDE RECORDS SUMMARY | 2025-06-17 17:36 | XMS_ITS | Patient Health Record ---
Author Organization Aaron Rob MD Address [address] [place] [phone] Care Team Providers Care Scissors Sharpener Name Role Phone Aaron Rob Primary Care Provider Allergies No Known Allergies Results Component Value Reference Range Notes Hemoglobin A1c Reviewed date:11/06/2024 02:24:19 PM Interpretation: Performing Lab: Notes/Report: Hemoglobin A1c 7.6 Complete Blood Count Auto Di ff Reviewed date:10/04/2024 06:46:14 PM Interpretation: Performing Lab:[facility], [address] [place] [phone] Notes/Report: White Blood Count 6.5 4.8-10.8 X10*3/uL [...] NRBC Abs Auto 0.000 0.0-0.012 X10*3/uL Comprehensive [place]. Panel Fa st Reviewed date:10/05/2024 09:05:22 AM Interpretation: Performing Lab:[facility], [address] [place] [address] Notes/Report: Sodium 144 135-145 mmol/L Potassium 3.9 [...] Panel Reviewed date:10/04/2024 06:22:42 PM Interpretation: Performing Lab:[address] [address] Notes/Report: Triglycerides 101 <150 mg/dL Desirable Triglyceride: [...] T4 Reviewed date:10/04/2024 06:24:59 PM Interpretation: Performing Lab:[address] [address] Notes/Report: TSH reflex Free T4 0.34 0.32-4.0 uIU/mL Microalbumin, Random Reviewed date:10/04/2024 06:28:23 PM Interpretation: Performing Lab:[address] [address] Notes/Report: Creatinine Urine 63.70 Microalbumin Urine 24.0 Microalbum/Creatinine Ratio Ur 37.6 <30 ug/mg cr Albumin/Creatinine Ratio Reference Ranges: Normal: < 30 ug/mg creatinine Microalbuminuria: 30 - 300 ug/mg creatinine Clinical Albuminuria: > 300 ug/mg creatinine Hemoglobin A1c Reviewed date:10/04/2024 06:25:17 PM Interpretation: Performing Lab:[facility], [address] [place] [phone] Notes/Report: Hemoglobin A1c % 5.8 <6.0 % [...] average glucose, using the formula of the D8R-Zusrjff Average Glucose study (ADAG), Diabetes Care, Vol.31,#8, Jan. 2007 UA ClnCatch+Micro w/rflx Cul t Reviewed date:10/05/2024 09:05:43 AM Interpretation: Performing Lab:[facility], [address] [place] [phone] Notes/Report: Urine, Clean Catch Color Urine Yellow Appearance Urine Clear PH 6.5 5.0-9.0 Glucose Urine UA Negative Negative mg/dL Urine Blood Small (1+) Negative Specific Darrington - Urine 1.015 1.005-1.025 Urine Protein Negative Neg-Trace mg/dL Urine Ketones Negative Negative mg/dL Nitrite Urine Negative Negative Leukocyte Esterase Urine Trace Negative RBC Urine 11-20 0-2 /HPF WBC Urine 6-10 0-5 /HPF Squamous Epithelial Cell Urine 6-10 0-2 /HPF Bacteria Urine 3+ None Seen Hyaline Casts Urine 0-2 0-2 /LPF Liver Panel Reviewed date:04/16/2025 03:56:30 PM Interpretation: Performing Lab:[facility], [address] [place] [address] Notes/Report: Bilirubin Total 0.4 0.0-1.0 mg/dL Bilirubin Direct 0.2 0.0-0.5 mg/dL Aspartate Amino Transferase 31 5-31 U/L Alanine Aminotransferase 12 0-31 U/L Total Protein 6.9 6.5-8.0 g/dL Albumin Level 3.8 3.5-5.0 g/dL Alkaline Phosphatase 125 39-117 U/L Glucose Fasting Reviewed date:04/16/2025 03:57:54 PM Interpretation: Performing Lab:[facility], [address] [place] [phone] Notes/Report: Glucose Fasting 118 60-99 mg/dL A fasting glucose from 100-125 mg/dl is considered impaired (pre-diabetes). Lipid Panel with Reflex Reviewed date:04/16/2025 04:02:18 PM Interpretation: Performing Lab:[address] [address] Notes/Report: Triglycerides 224 <150 mg/dL Desirable Triglyceride: [...] A1c Reviewed date:04/16/2025 12:25:34 PM Interpretation: Performing Lab:[address] [address] Notes/Report: Hemoglobin A1c % 5.6 <6.0 % [...] average glucose, using the formula of the Z3G-Nzafttk Average Glucose study (ADAG), Diabetes Care, Vol.31,#8, Jan. 2007 TSH reflex Free T4 Reviewed date:07/06/2024 05:11:26 PM Interpretation: Performing Lab:[facility], [address] [place] [address] Notes/Report: TSH reflex Free T4 0.16 0.32-4.0 [...] 12:50:13 PM Interpretation:CBACK 07/06/24 Performing Lab: Notes/Report: [address] [address] XRay Report Signed Patient: Selene Barry MR#: [id number] 3611 : 1955 Acct:[id number] Age/Sex: 69 / F ADM Date: 06/29/24 Loc: HO.XRAY Attending Dr: Aaron Rob MD Ordering Physician: Aaron Rob MD Date of Service: 06/29/24 Procedure(s): XR chest 2V Accession Number(s): [id number] cc: Aaron Rob MD CLINICAL HISTORY: Acute [...] OV> 07/02/24 105 DD/ 54 TD/TT: 07/02/241054 Compound Machine Operator: [address] [place] [address] XRay Report Signed Patient: Selene Barry MR#: [id number] 3611 : 1955 Acct:[id number] Age/Sex: 69 / F ADM Date: 06/29/24 Loc: HO.XRAY Attending Dr: Aaron Rob MD Ordering Physician: Aaron Rob MD Date of Service: 06/29/24 Procedure(s): XR tigist st 2V Accession Number(s): [id number] cc: Aaron Rob MD CLINICAL HISTORY: Ac [...] in OV> 07/02/241054 DD/ 54 TD/TT: 07/02/241054 Compound Machine Operator: Free T4 (Free Thyroxine) Reviewed date:07/06/2024 05:11:14 PM Interpretation: Performing Lab:[facility], [address] [place] [address] Notes/Report: Free T4 (Free Thyroxine) 1.31 0.71-1.85 ng/dL Hold Gold Reviewed date:07/06/2024 01:24:48 PM Interpretation: Performing Lab:[facility], [address] [place] [phone] Notes/Report: Hold Gold See Note Specimen held untested for 24 hours; Call to request Chemistry testing. Afshan Monsivais Reviewed date:10/04/2024 06:20:14 PM Interpretation: Performing Lab:[facility], [address] [place] [phone] Notes/Report: Afshan Monsivais See Note Specimen held untested for 24 hours; Call to request Chemistry testing. Urine Culture Reviewed date:10/05/2024 09:02:59 AM Interpretation: Performing Lab:[facility], [address] [place] [address] Notes/Report: Urine Culture No growth. XR chest 2V Reviewed date:10/19/2024 10:26:20 AM Interpretation: Performing Lab: Notes/Report: [address] [address] XRay Report Signed Patient: Selene Barry MR#: [id number] 3611 : 1955 Acct:[id number] Age/Sex: 69 / F ADM Date: 10/17/24 Loc: CARM[facility] Attending Dr: Aaron Rob MD Ordering Physician: Aaron Rob MD Date of Service: 10/17/24 Procedure(s): XR chest 2V Accession Number(s): [id number] cc: Aaron Rbo MD CLINICAL HISTORY: MILD INTERMITTENT ASTHMA --- [...] in OV> 10/18/242154 DD/ 54 TD/TT: 10/18/242154 Compound Machine Operator: [address] [address] XRay Report Signed Patient: Selene Barry MR#: [id number] 3611 : 1955 Acct:[id number] Age/Sex: 69 / F ADM Date: 10/17/24 Loc: CARMEL Attending Dr: Aaron Rob MD Ordering Physician: Aaron Rob MD Date of Service: 10/17/24 Procedure(s): XR tigist st 2V Accession Number(s): [id number] cc: Aaron Rob MD CLINICAL HISTORY: MN [...] in OV> 10/18/242154 DD/ 54 TD/TT: 10/18/242154 Compound Machine Operator: Complete Blood Count Auto Di ff Reviewed date:11/02/2024 12:26:56 PM Interpretation: Performing Lab:[facility], [address] [place] [address] Notes/Report: White Blood Count 7.9 4.8-10.8 X10*3/uL [...] te Reviewed date:11/02/2024 05:05:39 PM Interpretation: Performing Lab:[facility], [address] [place] [phone] Notes/Report: Erythrocyte Sedimentation Rate 12 0-20 MM/HR Patients with polycythemia and many hemoglobin abnormalities may have depressed sed rates whereas patients with anemia may have elevated sed rates. Comprehensive Met. Panel Reviewed date:11/08/2024 08:01:35 AM Interpretation:BRINDA 11/06 Performing Lab:[address] [address] Notes/Report: Sodium 134 135-145 mmol/L Potassium 4.3 [...] Protein Reviewed date:11/02/2024 01:00:24 PM Interpretation: Performing Lab:[facility], [address] [place] [address] Notes/Report: C Reactive Protein 1.94 < or = 0.50 mg/dL Glucose, Whole Blood Reviewed date:01/17/2025 12:33:33 PM Interpretation: Performing Lab:[facility], [address] [place] [phone] Notes/Report: Glucose, Whole Blood 147 60-115 mg/dL METER # : [id number] FL guidance in OR Reviewed date:01/17/2025 12:32:59 PM Interpretation: Performing Lab: Notes/Report: [address] [address] Fluoroscopy Report Signed Patient: Selene Barry MR#: [id number] 3611 : 1955 Acct:[id number] Age/Sex: 69 / F ADM Date: 01/17/25 Loc: HO.[facility] Attending Dr: Rodney Beltran MD, PhD Ordering Physician: Rodney Beltran MD, PhD Date of Service: 01/17/25 Procedure(s): FL guidance in OR Accession Number(s): [id number] cc: Aaron Rob MD; Rodney Beltran MD, [...] in OV> 01/17/25901 DD/ 5 TD/TT: 01/17/2544 Compound Machine Operator: [address] [address] Fluoroscopy Report Signed Patient: Selene Barry MR#: [id number] 3611 : 1955 Acct:[id number] Age/Sex: 69 / F ADM Date: 01/17/25 Loc: HO.SSS Attending Dr: Jessica Beltran MD, PhD Ordering Physician: Rodney Beltran MD, PhD Date of Service: 01/17/25 Procedure(s): FL guidance in OR Accession Number(s): [id number] cc: Aaron Rob MD; Rdoney Beltran MD, PhD EXAMINATION: FL GUID ANCE [...] in OV> 01/17/25901 DD/ 5 TD/TT: 01/17/2544 Compound Machine Operator: Afshan Monsivais Reviewed date:04/16/2025 12:25:44 PM Interpretation: Performing Lab:[facility], [address] [place] [address] Notes/Report: Hold Gold See Note Specimen held untested for 24 hours; Call to request Chemistry testing. Complete Blood Count Auto Di ff Reviewed date:05/10/2025 12:15:21 PM Interpretation: Performing Lab:[facility], [address] [place] [address] Notes/Report: White Blood Count 9.6 4.8-10.8 X10*3/uL [...] INR Reviewed date:05/10/2025 12:15:29 PM Interpretation: Performing Lab:[facility], [address] [place] [address] Notes/Report: Prothrombin Time 12.1 11.2-13.5 SEC [employer] [...] OBSX1 Reviewed date:05/10/2025 12:38:15 PM Interpretation: Performing Lab:[facility], [address] [place] [phone] Notes/Report: OBS1 POSITIVE NEGATIVE Comprehensive Met. Panel Reviewed date:05/10/2025 12:14:52 PM Interpretation: Performing Lab:[facility], [address] [place] [address] Notes/Report: Sodium 142 135-145 mmol/L Potassium 3.9 [...] Acid Reviewed date:05/12/2025 04:28:20 PM Interpretation: Performing Lab:[facility], [address] [place] [phone] Notes/Report: Lactic Acid 1.4 0.5-2.0 mmol/L SARS-CoV2/FLU/RSV Reviewed date:05/10/2025 12:14:32 PM Interpretation: Performing Lab:[facility], [address] [place] [phone] Notes/Report: Influenza A PCR NEGATIVE Negative Influenza [...] by authorized laboratories. Testing performed on the [employer] GeneXpert utilizing real-time RT-PCR. All SARS CoV2 and positive influenza A/B results are reported to [facility]. Blood Culture (First) Reviewed date:05/16/2025 12:47:54 PM Interpretation: Performing Lab:[facility], [address] [place] [phone] Notes/Report: Blood Culture (First) No growth after 5 days. Blood Culture (Second) Reviewed date:05/16/2025 12:48:02 PM Interpretation: Performing Lab:[facility], [address] [place] [address] Notes/Report: Blood Culture (Second) No growth after [address] abdomen pelvis w con Reviewed date:05/10/2025 03:13:30 PM Interpretation: Performing Lab: Notes/Report: [address] [address] [address] Scan Report Signed Patient: Selene Barry MR#: [id number] 3611 : 1955 Acct:[id number] Age/Sex: 70 / F ADM Date: 05/10/25 Loc: HO.ED Attending Dr: Ordering Physician: Vanita Orantes Date of Service: 05/10/25 Procedure(s): CT abdomen pelvis w IV con Accession Number(s): [id number] cc: Aaron Rob MD; Vanita Orantes Report Number: [id number]: Total DLP = 506.00 mGy-cm Reason for [...] 05/10/25 1421 DD/ 1239 TD/TT: 05/10/25 1325 Compound Machine Operator: [address] [address] [address] Scan Report Signed Patient: Selene Barry MR#: [id number] 3611 : 1955 Acct:[id number] Age/Sex: 70 / F ADM Date: 05/10/25 Loc: HO.ED Attending Dr: Ordering Physician: Vanita Orantes Date of Service: 05/10/25 Procedure(s): CT abd omen pelvis w IV con Accession Number(s): [id number] cc: Aaron Rob MD; Vanita Orantes Report Number: [id number]: Total DLP = 506.00 mGy-cm Reason for [...] 05/10/25 1421 DD/ 1239 TD/TT: 05/10/25 1325 Compound Machine Operator: Complete Blood Count Auto Di ff Reviewed date:05/12/2025 04:28:46 PM Interpretation: Performing Lab:[facility], [address] [place] [address] Notes/Report: White Blood Count 8.8 4.8-10.8 X10*3/uL [...] date:05/22/2025 04:55:35 PM Interpretation: Performing Lab: Notes/Report: [facility] [address] [place] [address] XRay Report Signed Patient: Selene Barry MR#: [id number] 3611 : 1955 Acct:[id number] Age/Sex: 70 / F ADM Date: 05/22/25 Loc: [facility] Attending Dr: Osmel MARADIAGA Ordering Physician: Osmel Mckoy Date of Service: 05/22/25 Procedure(s): XR lumbar spine 4V min Accession Number(s): [id number] cc: Aaron Rob MD; Osmel Mckoy Reason [...] 05/22/25 1621 DD/ 1543 TD/TT: 05/22/25 1547 Compound Machine Operator: [facility] [address] [place] [address] XRay Report Signed Patient: Selene Barry MR#: [id number] 3611 : 1955 Acct:[id number] Age/Sex: 70 / F ADM Date: 05/22/25 Loc: [facility] Attending Dr: Osmel MARADIAGA Ordering Physician: Osmel Mckoy Date of Service: 05/22/25 Procedure(s): XR lum bar spine 4V min Accession Number(s): [id number] cc: Aaron Rob MD; Osmel Mckoy Reason for Exam: Z98 .890 - Other specified postprocedural states EXAMINATION: XR LUMBAR SPINE 4 OR MORE VIEWS CLINICAL INFORMATION: Z98.890 - Other specified postprocedural states COMPARISON: Radiographs on [facility] 2023. TECHNIQUE: AP and lateral views of [...] 05/22/25 1621 DD/ 1543 TD/TT: 05/22/25 1547 Compound Machine Operator: MR lumbar spine wo con Reviewed date:06/06/2025 08:58:32 AM Interpretation: Performing Lab: Notes/Report: [address] [address] Magnetic Resonance Report Signed Patient: Selene Barry MR#: [id number] 3611 : 1955 Acct:[id number] Age/Sex: 70 / F ADM Date: 06/01/25 Loc: HO.MRI Attending Dr: Osmel MARADIAGA Ordering Physician: Osmel Mckoy Date of Service: 06/01/25 Procedure(s): MR lumbar spine wo con Accession Number(s): [id number] cc: Aaron Rob MD; Osmel Mckoy Reason [...] 02/03/24 10:14 EDT Findings: There are 6 ypt-ifu-ogjiypv lumbar-type vertebra. There is moderate levocurvature with [...] right and severe left lateral recess stenosis. Galr-oa-jalvurxx right and mild left foraminal stenosis. L3/L4: [...] measuring 3 mm. Severe facet joint hypertrophy. Wulo-uz-wqdprkya central canal stenosis. Severe bilateral lateral recess stenosis. Moderate to severe right and qddm-wq-hesxmmun left foraminal stenosis. L5/transitional vertebra: Status post laminectomies. Uncovering of the disc with 7 mm disc bulge. Severe facet joint hypertrophy. Moderate to severe central canal stenosis greater to the left of midline. Severe bilateral lateral recess stenosis, left greater than right. Ortj-zu-dcntnuut right and severe left foraminal stenosis. Transitional [...] 06/05/25 1602 DD/ 1601 TD/TT: 06/05/25 1601 Compound Machine Operator: [place] [address] Magnetic Resonance Report Signed Patient: Selene Barry MR#: [id number] 3611 : 1955 Acct:[id number] Age/Sex: 70 / F ADM Date: 06/01/25 Loc: HO.MRI Attending Dr: Osmel MARADIAGA Ordering Physician: Osmel Mckoy Date of Service: 06/01/25 Procedure(s): MR lum bar spine wo con Accession Number(s): [id number] cc: Aaron Rob MD; Osmel Mckoy Reason [...] 02/03/24 10:14 EDT Findings: There are 6 sve-fse-umlokfq lumbar-type vertebra. There is moderate levocurvature with [...] and severe left late ral recess stenosis. Mguo-vr-deihhugk right and mild left foraminal stenosis. L3/L4: [...] 3 mm. Severe facet kwame nt hypertrophy. Asjh-dc-heytrkxy central canal stenosis. Severe bilateral lateral recess stenosis. Moderate to severe right and xdql-pd-tlkdkhgf left foraminal stenosis. L5/transitional vertebra: Status post laminectomies. Uncovering of the disc with 7 mm disc bulge. Severe facet joint hypertrophy. Moderate to severe central canal stenosis greater to the left of midline. Severe bilateral lateral re cess stenosis, left greater than right. Gjkw-jz-dbbdxfjj rig ht and severe left foraminal stenosis. [...] OV> 06/05/25 160 DD/ 160 TD/TT: 06/05/251600 Compound Machine Operator: Reason For Referral Reason osteoporosis Diagnosis 1 Age-related osteopor osis without current pathological fracture (M81.0) Referral Organization Aaron Rob MD Referring Provider First Name Aaron Referring Provider Last Name Darron Referring Provider Speciality Internal edicine Referred Provider Angelo Ramires Referred Provider Specialty Endocrinolog y General Notes Ursula Tracy 0 07/26/2024 03:26:47 PM >info faxed with [facility] office note Referral Priority Routine [...] Referral Priority Routine Referral Appointment Date 06/03/2025 Medications Medication SIG (Take, Route, Frequency, Duration) [...] capsule Orally Onc e a day Active Atorvastatin Calcium 80 MG [...] W/U Status Risk Notes Problem Hypercoagulable state (71802560) Secondary hypercoagulable state (289.82) Active confirmed Problem Spinal stenosis (69107969) Spinal stenosis (724.00) Active confirmed Problem 12292363 Age-related osteoporosis without current pathological fracture (M81.0) Active confirmed Problem 600484499 Thyroid nodule (E04.1) Active confirm ed Problem 79359170 Lymphocytosis (D72.820) Active confirmed Problem 442987651175338 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) Active confirmed Problem 52648599 Lumbar disc dise ase (M51.9) Active confirmed Problem 57818706 Essential hypert ension (I10) Active confirmed Problem 752924091 Mild intermitten t asthma without complication (J45.20) Active confirmed Problem 904910398 Chronic systolic congestive heart failure (I50.22) Active confirmed Problem 33148665 Hyperthyroidism (E05.90) Active confirmed Problem 438401877 Rheumatoid arthr itis involving multiple sites, 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) Active confirmed Problem 191236842 Graves disease (E05.00) Active confirmed Problem 432256142 History of coron marie artery bypass graft (Z95.1) Active confirmed Problem 2229846 Thyromegaly (E04.9) Active confirmed Problem 837398242 Non-rheumatic mi tral regurgitation (I34.0) Active confirmed Problem 200541347 Thyroid cancer (C73) Active confirmed Problem 786068850 Vaginal bleeding (N93.9) Active confirmed Problem 72127302 Sciatica of righ t side (M54.31) Active confirmed Problem 60603389 Hypercholesterol emia (E78.00) Active confirmed Problem 6334338324765 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) Active confirmed Problem 837510125 Atrophy of vagin a (N95.2) Active confirmed Problem History of hysterectomy (219930418) History of hysterectomy (Z90.710) Active confirmed Problem 029047458 Vaginal prolapse (N81.10) Active confirmed Problem Type II diabetes mellitus without complication (804513239) Type 2 diabetes mellitus treated without insulin (E11.9) Active confirmed Problem 8724978 Prediabetes (R73.09) Inactive confirmed Vital Signs Blood [...] Date Provider Diagnosis Aaron Rob MD [address] [place] [address] [address] [place] [id number] 10/04/2024 Aaron Rob Essential hypertensi on I10 ; Prediabetes R73.09 ; Lymphocytosis D72.820 ; Chronic systolic congestive heart failure I50.22 ; Hyperthyroidism E05.90 and Hypercholesterolemia E78.00 Aaron Rob MD [address] [place] [id number] 04/16/2025 Aaron Rob Type 2 diabetes santhosh itus treated without insulin E11.9 ; Encounter for administration of vaccine Z23 and Hypercholesterolemia E78.00 Aaron Rob MD [address] [place] [id number] 06/21/2024 Aaron Rob Mild intermittent as thma without complication J45.20 Aaron Rob MD [address] [place] [id number] 06/29/2024 Aaron Rob Acute URI J06.9 Aaron Rob MD [address] [place] [id number] 07/06/2024 Aaron Rob Mild intermittent as thma without complication J45.20 ; Hyperthyroidism E05.90 and Pneumonitis, interstitial J84.89 Aaron Rob MD [address] [place] [id number] 10/11/2024 Aaron Rob Atrophy of vagina N9 5.2 ; Vaginal prolapse N81.10 ; Hematuria R31.9 ; Essential hypertension I10 ; Prediabetes R73.09 ; Mild intermittent asthma without complication J45.20 ; Chronic systolic congestive heart failure I50.22 ; Graves disease E05.00 and Hypercholesterolemia E78.00 Aaron Rob MD [address] [place] [id number] 11/06/2024 Aaron Rob Essential hypertensi on I10 ; Rheumatoid arthritis involving multiple sites, unspecified rheumatoid factor presence M06.9 and Type 2 diabetes mellitus treated without insulin E11.9 Aaron Rob MD [address] [place] [id number] 11/13/2024 Aaron Rob Type 2 diabetes santhosh itus treated without insulin E11.9 Aaron Rob MD [address] [place] [id number] 11/29/2024 Aaron Bombardier Type 2 diabetes santhosh itus treated without insulin E11.9 and Headache, unspecified R51.9 Aaron Rob MD [address] [place] [id number] 12/14/2024 Aaron Avelinaardier Type 2 diabetes santhosh itus treated without insulin E11.9 and Rectal bleeding K62.5 Aaron Rob MD [address] [place] [id number] 01/14/2025 Aaron Avelinaardier Type 2 diabetes santhosh itus treated without insulin E11.9 ; Lumbar disc disease M51.9 and Essential hypertension I10 Aaron Rob MD [address] [place] [id number] 01/25/2025 Aaron Quanardimarina Type 2 diabetes santhosh itus treated without insulin E11.9 and Lumbar disc disease M51.9 Aaron Rob MD [address] [place] [id number] 04/23/2025 Aaron Rob History of hysterect ravinder Z90.710 ; Vaginal bleeding N93.9 ; Essential hypertension I10 and 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 Aaron Rob MD [address] [place] [id number] 05/21/2025 Aaron Quanardimarina Type 2 diabetes santhosh itus treated without insulin E11.9 and Lumbar disc disease M51.9 Aaron Rob MD [address] [place] [address] [id number] 11/29/2024 Aaron Rob MD [address] [place] [address] [id number] 12/03/2024 Aaron Rob MD [address] [place] [id number] 12/03/2024 Aaron Rob MD [address] [place] [id number] 12/04/2024 Aaron Rob MD [address] [place] [id number] 12/14/2024 Aaron Rob MD [address] [place] [address] [id number] 12/17/2024 Aaron Rob MD [address] [place] [id number] 01/17/2025 Aaron Rob MD [address] [place] [address] Drive [address] [place], [place] [id number] 05/12/2025 Aaron Rob Assessments Encounter Date Diagnosis (ICD Code) Assessment Notes Treatment Notes Treatment Clinical Notes Section Notes 10/04/2024 Essential hypertensi on (ICD-10 - I10) 04/16/2025 Type 2 diabetes mellitus treated without insulin (ICD-10 - E11.9) 04/16/2025 Encounter for administration of vaccine (ICD-10 - Z23) 06/21/2024 Mild intermittent asthma without complication (ICD-10 - J45.20) 06/29/2024 Acute URI (ICD-10 - J06.9) THE XRAY ORDER WAS FAXED TO [facility] PATIENT REG. PATIENT AWARE, patient [...] treated without insulin (ICD-10 - E11.9) consult plating stripper, patient will continue current regiment 11/29/2024 Type [...] Z90.710) need notes from dr wolfe at [facility] 04/23/2025 Vaginal bleeding (ICD-10 - N93.9) has a hysterectomy and is doing well 05/21/2025 Type 2 diabetes mellitus treated without insulin (ICD-10 - E11.9) trying to see dr ramires 05/21/2025 Lumbar disc disease (ICD-10 - M51.9) if she continues to have pain to go back to the spine center 10/04/2024 Prediabetes (ICD-10 - R73.09) 04/16/2025 Hypercholesterolemia (ICD-10 - E78.00) 07/06/2024 Pneumonitis, interstitial (ICD-10 - J84.89) will [...] meds 10/04/2024 Lymphocytosis (ICD-1 0 - D72.820) 10/11/2024 Essential hypertensi on (ICD-10 - I10) [...] LAT 08/03/2024 Next Appt Details Provider Name:Aaron villar, 06/18/2025 11:30:00 AM, [address] [place] [address], [address], [place], [phone], Provider Name:Aaron villar, 10/08/2025 07:45:00 AM, [address] [place] [address], [address], [place], [phone], Provider Name:Aaron deleon, 10/15/2025 09:30:00 AM, [address] [facility], [address], [place], [place], [phone], Insurance Providers Payer Name Payer Address Payer Phone Subscriber Number Group Number Insured Name Patient Relationship to Insured Coverage Start Date Coverage End Date MEDICARE [employer] [address] [place] [address] [id number] Selene Valdovinos Self - patient is the insured Medical (General) History Medical History History ICD Code colonoscopy - 03/2008 hyperp lastic polyp due 03/[address] Mcgarry; Colonoscopy done 07/14/[address] 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
== END 2025-06-17 16:15 | disposition home or self-care (01) ==
PROVIDERS: PCP Internal Medicine; Visit Provider Physician Assistant
DX: M54.50 Low back pain, unspecified (principal)

== ENCOUNTER → 2025-06-17 14:05 | Outpatient (BNVA) | payer MEDICARE, SELFPAY | PROVIDERS: PCP Internal Medicine; Visit Provider Physician Assistant | DX: M54.50 Low back pain, unspecified (principal) | CPT/HCPCS: 99211 ==

== ENCOUNTER 2025-06-25 10:45 | Outpatient (AMB) | payer MEDICARE, SELFPAY ==
--- OUTSIDE RECORDS SUMMARY | 2024-12-14 05:57 | XMS_ITS ---
Author Organization Aaron Rob MD Address [address] [facility] [address] [place] [phone] Care Team Providers Care Oven Unloader Name Role Phone Aaron Rob Primary Care Provider [phone] REASON FOR VISIT SURGERY CLERANCE NOTE Encounters Encounter Location Date Provider Diagnosis Aaron Rob MD [address] [place] [address] [address] [place] [phone] 12/14/2024 Aaron Rob Plan Of Treatment Next Appt Details Provider Name:Aaron deleon, 10/08/2025 07:45:00 AM, [address] [place] [address], [address], [phone], Provider Name:Aaron deleon, 10/15/2025 09:30:00 AM, [address] [place] [address], [address], [phone], Progress Notes * BARRY, SeleneDOB: [birth year] (69 yo F)Acc No.[id number]:12/14/2024 Patient: Selene EASTON :1955 A ge:69 Y S ex:Female Address:[address] [place] [phone] * true * Date: Generated for Julius pittman/Fito/Riosmitting on: 02:27 PM EST
--- OUTSIDE RECORDS SUMMARY | 2024-12-17 04:30 | XMS_ITS ---
Author Organization Aaron Rob MD Address [address] [place] [phone] Care Team Providers Care Construction Equipment Operator Name Role Phone Aaron Rob Primary Care Provider REASON FOR VISIT sick from Metformin Medications Medication SIG (Take, Route, Frequency, Duration) Notes Start Date End Date Status Januvia 50 MG 1 tab Orally daily for 30 days 12/17 Active Encounters Encounter Location Date Provider Diagnosis Aaron Rob MD 10 [facility] [address] [place] [phone] 12/17/2024 Aaron Rob Plan Of Treatment Medication Medication Name Sig Start Date Stop Date Notes Januvia 50 MG 1 tab Orally daily for 30 days 12/17/2024 Next Appt Details Provider Name:Aaron deleon, 10/08/2025 07:45:00 AM, [address], [address], [place], [phone], Provider Name:Aaron Atkinson adrienne, 10/15/2025 09:30:00 AM, [address] [facility] [address] [address], [address], [place], [place], [phone], Progress Notes * Selene BARRYDOB: [birth year] (69 yo F)Acc No.[id number]:12/17/2024 Patient: Selene EASTON :1955 A ge:69 Y S ex:Female Address:[address] [place] [phone] * Refills Start Januvia Tablet, 50 MG, Orally, 30 Tablet, 1 tab, daily, 30 days, Refills=5 * true * Date: Generated for Julius pittman/Fito/Riosmitting on: 02:26 PM EST
--- OUTSIDE RECORDS SUMMARY | 2025-01-14 04:00 | XMS_ITS ---
Author Organization Aaron Rob MD Address [address] [place] [phone] Care Team Providers Care Drafter (Cad) Electrical Name Role Phone Aaron Rob Primary Care Provider [phone] Allergies No Known Allergies Results Component [...] Omeprazole 20 MG Take 1 capsule by [facility] once daily for 90 Active Januvia 50 [...] Date Provider Diagnosis Aaron Rob MD 10 [facility] [address] [place], [place] [phone] 01/14/2025 Aaron Rob Type 2 diabetes mellitus [...] Next Appt Details Provider Name:Aaron Atkinson ier, 10/08/2025 07:45:00 AM, [address], [address], [place], [place], [phone], Provider Name:Aaron Atkinson ier, 10/15/2025 09:30:00 AM, [address], [address], [place], [place], [phone], Progress Notes * Selene BARRYDOB: [birth year] (69 yo F)Acc No.[id number]:01/14/2025 Progress Notes Patient: Selene EASTON Provider: Josh Rob MD :1955 A ge:69 Y S ex:Female Date:01/14/2025 Address:[address] [place], [place] [phone] Subjective: * Chief Complaints: * 4 week [...] MD Date: 0 01/14/2025 Generated for Julius pittman/Fito/Dionnaitting on: 02:26 PM EST History and Physical Notes * [...]
--- OUTSIDE RECORDS SUMMARY | 2025-01-17 05:03 | XMS_ITS ---
Author Organization Aaron Rob MD Address [address] [place] [phone] Care Team Providers Care Career Services Assistant Name Role Phone Aaron Rob Primary Care Provider REASON FOR VISIT discharge Encounters Encounter Location Date Provider Diagnosis Aaron Rob MD 10 [facility] [address] [place] [phone] 01/17/2025 Aaron Rob Plan Of Treatment Next Appt Details Provider Name:Aaron deleon, 10/08/2025 07:45:00 AM, [address] [place] [address], [address], [phone], Provider Name:Aaron deleon, 10/15/2025 09:30:00 AM, [address] [place] [address], [address], [phone], Progress Notes * Selene BARRYDOB: [birth year] (69 yo F)Acc No.[id number]:01/17/2025 Patient: Selene EASTON :1955 A ge:69 Y S ex:Female Address:[address] [place] [phone] * true * Date: Generated for Julius pittman/Fito/Riosmitting on: 02:25 PM EST
--- OUTSIDE RECORDS SUMMARY | 2025-01-25 04:15 | XMS_ITS ---
Author Organization Aaron Rob MD Address [address] [place] [phone] Care Team Providers Care Otr Truck Driver Name Role Phone Aaron Rob Primary Care [...] [facility] once [facility] for 90 Active Calcium + [...] Rob MD [address] [place], [place] [phone] 01/25/2025 Aaron Rob Type 2 diabetes mellitus [...] 2 Months, Reason: dm Provider Name:Aaron deleon, 10/08/2025 07:45:00 AM, [address], [address], [place], [place], [phone], Provider Name:Aaron Atkinson ier, 10/15/2025 09:30:00 AM, [address], [address], [place], [phone], Progress Notes * Selene BARRYDOB: [birth year] (69 yo F)Acc No.[id number]:01/25/2025 Progress Notes Patient: Selene EASTON Provider: Josh Rob MD :1955 A ge:69 Y S ex:Female Date:01/25/2025 Address:[address] [place] [address] YESSI Lockhart, [phone] Subjective: * Chief Complaints: * F /u [...] MD Date: 0 01/25/2025 Generated for Julius pittman/Fito/eTransmitting on: 1 02:26 PM EST History and Physical Notes [...]
--- OUTSIDE RECORDS SUMMARY | 2025-04-09 09:20 | XMS_ITS ---
Author Organization [facility] Address [address] [place] [address] Care Team Providers Care Curator Of Education Name Role Phone Darron PIERCE, Aaron Primary Care Provider Angelo Caceres [phone] REASON FOR VISIT Patient presents today for a rectal bleeding Encounters Encounter Location Date Provider Diagnosis [facility] 10 [facility] [address] [place] [address] 04/09/2025 Angelo Lan Plan Of Treatment Next Appt Details Provider Name:Angelo Lan , 08/01/2025 10:20:00 AM, [address], [address], [place], [address], Progress Notes * BERT KRAFTDOB: [birth year] (70 yo F)Acc No.[id number]:04/09/2025 Progress Notes Patient: BERT EASTON Provider: Lavelle Lan MD :1955 A ge:70 Y S ex:Female Date:04/09/2025 Address:[address] [place], [place] [phone] Pcp:Aaron Rob MD Subjective: * Chief Complaints: * P atient presents today for a rectal bleeding * The named appointment provid er may or may not be the originator of this progress note, and it is not deemed complete until electronically signed by the appointment provider. Sign off status: Pending * Provider: Lavelle Lan MD Date: 1 Generated for Printi ng/Faesperanzag/eTransmitting on: 1 02:26 PM EST
--- OUTSIDE RECORDS SUMMARY | 2025-04-16 02:30 | XMS_ITS ---
Author Organization Aaron Rob MD Address [address] [place] [phone] Care Team Providers Care Heater Installer Name Role Phone Aaron Rob Primary Care Provider Results Component Value Reference Range Notes Liver Panel Reviewed date:04/16/2025 03:56:30 PM Interpretation: Performing Lab:[facility], [address] [place] [phone] Notes/Report: Bilirubin Total 0.4 0.0-1.0 mg/dL Bilirubin Direct 0.2 0.0-0.5 mg/dL Aspartate Amino Transferase 31 5-31 U/L Alanine Aminotransferase 12 0-31 U/L Total Protein 6.9 6.5-8.0 g/dL Albumin Level 3.8 3.5-5.0 g/dL Alkaline Phosphatase 125 39-117 U/L Glucose Fasting Reviewed date:04/16/2025 03:57:54 PM Interpretation: Performing Lab:[facility], [address] [place] [phone] Notes/Report: Glucose Fasting 118 60-99 mg/dL A fasting glucose from 100-125 mg/dl is considered impaired (pre-diabetes). Lipid Panel with Reflex Reviewed date:04/16/2025 04:02:18 PM Interpretation: Performing Lab:[facility], [address] [place] [phone] Notes/Report: Triglycerides 224 <150 mg/dL Desirable Triglyceride: [...] A1c Reviewed date:04/16/2025 12:25:34 PM Interpretation: Performing Lab:[facility], [address] [place] [phone] Notes/Report: Hemoglobin A1c % 5.6 <6.0 % [...] average glucose, using the formula of the Y8L-Ymmkvgr Average Glucose study (ADAG), Diabetes Care, Vol.31,#8, 2007 REASON FOR VISIT FASTING LIPIDS Immunizations Vaccine Route Administration Date Status Comme nts Influenza High Dose IM Intramuscular 04/16/2025 Administer ed Encounters Encounter Location Date Provider Diagnosis Aaron Rob MD [address] [place] [address] [place] [phone] 04/16/2025 Aaron Rob Type 2 diabetes santhosh [...] Treatment Next Appt Details Provider Name:Aaron Atkinson ieaddison, 10/08/2025 07:45:00 AM, [address] [place] [address], [place] [address], [place], [place], [phone], Provider Name:Aaron deleon, 10/15/2025 09:30:00 AM, [address] [place] [address], [place] [address], [place], [place], [phone], Progress Notes * Selene BARRYDOB: [birth year] (70 yo F)Acc No.[id number]:04/16/2025 Progress Note Patient: Selene EASTON Provider: Josh Rob MD :1955 A ge:70 Y S ex:Female Date:04/16/2025 Address:[address] [place], [place] [phone] Subjective: * Chief Complaints: * 1 . [...] * Procedure Codes: 3 6415 VENIPUNCT, ROUTINE*, [address] FLU VACC PRSV FREE INC ANTIG, G0008 ADMN FLU VAC NO FEE SCHED SAME DAY * * The named appointment provid er may or may not be the originator of this progress note, and it is not deemed complete until electronically signed by the appointment provider. Sign off status: Pending * Provider: Josh Rob MD Date: 1 Generated for Julius pittman/Fito/Jh on: 1 02:27 PM EST
--- OUTSIDE RECORDS SUMMARY | 2025-04-23 05:15 | XMS_ITS ---
Author Organization Aaron Rob MD Address [address] [place] [phone] Care Team Providers Care Assistant Professor Name Role Phone Aaron Rob Primary [...] Omeprazole 20 MG Take 1 capsule by [facility] once daily for 90 Active Docusate [...] Status Risk Notes Problem History of hysterectomy (488150780) History of hysterectomy (Z90.710) Active confirmed Vital Signs Blood pressure systolic 144 mm Hg 04/23/20 25 Blood pressure diastolic 80 mm Hg 025 Height 63.5 in 04/23/2025 Weight 167 lbs 04/23/2025 BMI 29.12 kg/m2 04/23/2025 Encounters Encounter Location Date Provider Diagnosis Aaron Rob MD [address] [place], [place] [phone] 04/23/2025 Aaron Rob History of hysterectomy Z90.710 ; Vaginal bleeding N93.9 ; Essential hypertension I10 and 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 Assessments Encounter Date Diagnosis (ICD Code) Assessment Notes Treatment Notes Treatment Clinical Notes Section Notes 04/23/2025 History of hysterectomy (ICD-10 - Z90.710) need notes from dr wolfe at [facility] 04/23/2025 Vaginal bleeding (ICD-10 - N93.9) has [...] hysterectomy need notes from dr wolfe at [facility] Vaginal bleeding has a hysterectomy a nd [...] 07:45:00 AM, [address], [address], [place], [place], [phone], Provider Name:Aaron Atkinson ier, 10/15/2025 09:30:00 AM, [address], [address], [place], [place], [phone], Progress Notes * Selene BARRYDOB: [birth year] (70 yo F)Acc No.[id number]:04/23/2025 Progress Notes Patient: Selene EASTON Provider: Josh Rob MD :1955 A ge:70 Y S ex:Female Date:04/23/2025 Address:[address] [place] [phone] Subjective: * Chief Complaints: * 2 month [...] Date: 1 Generated for Julius pittman/Fito/Dionnaitting on: 02:27 PM EST History and Physical Notes * [...]
--- OUTSIDE RECORDS SUMMARY | 2025-05-12 13:29 | XMS_ITS ---
Author Organization Aaron Rob MD Address [address] [place] [phone] Care Team Providers Care Nail Mill Worker Name Role Phone Aaron Rob Primary Care Provider REASON FOR VISIT ER Encounters Encounter Location Date Provider Diagnosis Aaron Rob MD 10 [facility] [address] [place] [phone] 05/12/2025 Aaron Rob Plan Of Treatment Next Appt Details Provider Name:Aaron deleon, 10/08/2025 07:45:00 AM, [address] [place] [address], [address], [phone], Provider Name:Aaron deleon, 10/15/2025 09:30:00 AM, [address] [place] [address], [address], [phone], Progress Notes * Selene BARRYDOB: [birth year] (70 yo F)Acc No.[id number]:05/12/2025 Patient: Selene EASTON :1955 A ge:70 Y S ex:Female Address:[address] [place] [id number] * true * Date: Generated for Julius pittman/Fito/Riosmitting on: 02:26 PM EST
--- OUTSIDE RECORDS SUMMARY | 2025-05-21 05:15 | XMS_ITS ---
Author Organization Aaron Rob MD Address [address] [place] [phone] Care Team Providers Care Customer Support Professional Name Role Phone Aaron Rob Primary Care Provider Allergies No Known Allergies Reason For Referral [...] AM >referral info refaxed Referral Priority Routine Referral Appointment Date 06/03/2025 REASON FOR VISIT 2 week f/u after [...] Omeprazole 20 MG Take 1 capsule by [facility] once daily for 90 Active Synthroid [...] 25 Blood pressure diastolic 70 mm Hg 025 Height 63.5 in 05/21/2025 Weight 163 lbs 05/21/2025 BMI 28.42 kg/m2 05/21/2025 weight is down 4 pounds [facility] 04-23-25 Encounters Encounter Location Date Provider Diagnosis Aaron Rob MD [address] [place] [address] [place] [id number] 05/21/2025 Aaron Rob Type 2 diabetes mellitus [...] Referrals Referral Date Details 05/21/2025 05/21/2025, DM, Ayden Ramires Next Appt Details Follow Up: 4 Weeks, Reason: Provider Name:Aaron Atkinson ier, 10/08/2025 07:45:00 AM, [address] [facility], [address], [place], [place], [phone], Provider Name:Aaron Atkinson ier, 10/15/2025 09:30:00 AM, [address] [facility], [address], [place], [place], [phone], Progress Notes * Selene BARRYDOB: [birth year] (70 yo F)Acc No.[id number]:05/21/2025 Patient: Selene EASTON Provider: Josh Rob MD :1955 A ge:70 Y S ex:Female Date:05/21/2025 Address:[address] [place] [id number] Subjective: * Chief Complaints: * 2 week [...] Date: 07/21/2024 Generated for Julius pittman/Fito/Dionnaitting on: 02:26 PM [...]
--- OUTSIDE RECORDS SUMMARY | 2025-06-18 06:30 | XMS_ITS ---
Author Organization Aaron Rob MD Address [address] [place] [phone] Care Team Providers Care Apparatus Cleaner Name Role Phone Aaron Rob Primary Care Provider [phone] Allergies No Known Allergies Results Component Value Reference Range Notes Glucose, finger stick Reviewed date:06/18/2025 11:28:12 AM Interpretation: Performing Lab: Notes/Report: Value 86 REASON FOR VISIT 4 WEEK Medications Medication SIG (Take, Route, Frequency, Duration) Notes Start Date End Date Status Amoxicillin-Pot Clavulanate 875-125 MG 1 tablet Orally every 12 hrs for 7 days 08/25/2023 Not-Taking Docusate Sodium 100 MG 1 capsule as need ed Orally Once a day Not-Taking Atorvastatin Calcium 80 MG Take 1 tablet by mouth once daily for 90 Active Enbrel 50 MG/ML 1 mL Subcutaneous Not-Taking Januvia 50 MG 1 tab Orally daily 12/17/2024 Not-Taking Albuterol Sulfate (2.5 MG/3ML) 0.083% 3 [...] Take 1 capsule by [facility] once daily for 90 Active Magnesium 250 MG 1 capsule Orally Onc e a day Active Aspir-81 81 MG 1 tablet Orally Once a day Active Gabapentin 300 MG 1 capsule Orally twi ce a day Active Vital Signs Blood pressure systolic 152 mm Hg 06/18/20 25 Blood pressure diastolic 74 mm Hg 025 Height 63.5 in 06/18/2025 Weight 161 lbs 06/18/2025 BMI 28.07 kg/m2 06/18/2025 weight is down 2 pounds [facility] e 05-21-25 Encounters Encounter Location Date Provider Diagnosis Aaron Rob MD [address] [place] [address] [place] [phone] 06/18/2025 Aaron Rob Type 2 diabetes mellitus treated without insulin E11.9 and Lumbar disc disease M51.9 Assessments Encounter Date Diagnosis (ICD Code) Assessment Notes Treatment Notes Treatment Clinical Notes Section Notes 06/18/2025 Type 2 diabetes mellitus treated without insulin (ICD-10 - E11.9) stopped her januvia and sugars are doing welll. had been feeling sick on the janiuvia maybe because her sugars are getting too low. says she is not eating a lot of bad foods oike she used to 06/18/2025 Lumbar disc disease (ICD-10 - M51.9) Is concerned that her xray looked so bad. have explained that as long as she is not having pain there is no reason to have any surgery. Total time spent on the date of the encounter is 35 minutes including both face to face time spent and time spent reviewing documentation, pertinent lab data, studies and counseling the patient. Plan Of Treatment Treatment Notes Assessment Notes Type 2 diabetes mellitus yuko ated without insulin stopped her januvia and sugars are doing welll. had been feeling sick on the janiuvia maybe because her sugars are getting too low. says she is not eating a lot of bad foods oike she used to Lumbar disc disease Is concerned that he r xray looked so bad. have explained that as long as she is not having pain there is no reason to have any surgery. Total time spent on the date of the encounter is 35 minutes including both face to face time spent and time spent reviewing documentation, pertinent lab data, studies and counseling the patient. Next Appt Details Follow Up: 3 Months, Reason: Provider Name:Aaron deleon, 10/08/2025 07:45:00 AM, [address] [place] [address], [address], [phone], Provider Name:Aaron Daley China deleon, 10/15/2025 09:30:00 AM, [address] [place] [address], [place] [address], [place], [place], [phone], Progress Notes * Selene BARRYDOB: [birth year] (70 yo F)Acc No.[id number]:06/18/2025 Progress Notes Patient: Selene EASTON Provider: Josh Rob MD :1955 A ge:70 Y S ex:Female Date:06/18/2025 Address:[address] [place], [place] [id number] Subjective: * Chief Complaints: * 1 . 4 WEEK. * HPI: S ymptom(s): patient is a 70 yo female here for 4 week follow up visit, back pain is doing better. * ROS: G eneral/Constitutional: Denies C hills. D enies F atigue. D enies F ever. D enies H eadache. E NT: Denies S ore throat. E ndocrine: Denies D ifficulty sleeping. A dmits D izziness.?Denies E xcessive sweating. D enies E xcessive thirst. A dmits F requent urination. R espiratory: Denies C ough. D enies S hortness of breath at rest. D enies S hortness of breath with exertion. G astrointestinal: Berenice Cordova iarrhea. D enies N ausea. * Medical History: c olonoscopy - 03/2008 hyperplastic polyp due 03/[address] Lan; Colonoscopy done 07/14/[address] 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 * Medications: T aking Gabapentin 300 MG Capsule 1 capsule Orally twice a day , Taking Magnesium 250 MG Capsule 1 capsule [...] Inhalation Three times a day , Taking Estradiol 0.1 MG/GM Cream as directed Vaginal Two times a Week , Taking Ventolin HFA 108 (90 Base) MCG/ACT Aerosol Solution INHALE 1 PUFF BY MOUTH EVERY 4 HOURS NEEDED , Taking Metoprolol Succinate ER 50 MG Tablet Extended Release 24 Hour 1 tablet Orally twice a day , Taking Atorvastatin Calcium 80 MG Tablet Take 1 tablet by mouth once daily , Not-Taking/PRN Januvia 50 MG Tablet 1 tab Orally [...] Objective: * Vitals: H t: 63.5, Wt: 161, BMI:28.07, BP:152/74, Repeat BP:158/74, Wt-k.03. weight is down 2 pounds since 05-21-25. * Examination: G eneral Examination: GENERAL APPEARANCE: p leasant, in no acute distress. SKIN: g ood turgor. HEART: r egular rate and rhythm, no murmurs, rubs, gallops.? LUNGS: n o wheezes, rales, rhonchi, good air movement, clear to auscultation bilaterally. Assessment: * Assessment: 1. T ype 2 diabetes mellitus treated without insulin - E11.9 (Primary) 2 . L umbar disc disease - M51.9 Plan: * Treatment: Value Reference Range V alue 86 Notes: stopped her januvia and sugars are doing welll. had been feeling sick on the janiuvia maybe because her sugars are getting too low. says she is not eating a lot of bad foods oike she used to ?2.?Lumbar disc disease? Notes: Is concerned that her xray looked so bad. have explained that as long as she is not having pain there is no reason to have any surgery. Total time spent on the date of the encounter is 35 minutes including both face to face time spent and time spent reviewing documentation, pertinent lab data, studies and counseling the patient.?? * Procedure Codes: 8 2947 ASSAY, GLUCOSE, BLOOD QUANT, Modifiers: QW * Follow Up: 3 Months * * The named appointment provid er may or may not be the originator of this progress note, and it is not deemed complete until electronically signed by the appointment provider. Sign off status: Pending * Provider: Josh Rob MD Date: 08/19/2024 Generated for Julius pittman/Fito/Dionnaitting on: 02:25 PM EST History and Physical Notes * Examination Category Sub-Category Detail Notes Category Not es General Examination GENERAL APPEARANCE: pleasant, in n o acute distress HEART: regular rate and rhy thm, no murmurs, rubs, gallops LUNGS: no wheezes, rales, r honchi, good air movement, clear to auscultation bilaterally SKIN: good turgor
--- OUTSIDE RECORDS SUMMARY | 2025-06-21 23:59 | XMS_ITS | Continuity of Care Document ---
Author Organization [facility] Address [address] [place] [address]- Care Team Providers Care Chef & Owner Name Role Phone Darron PIERCE, Aaron Primary Care Physician [phone] [place] [facility] [place]): [place] 06/21/25 [facility] [address] [place] [address]- Encounter Type: Triage Allergies, Adverse Reactions, Alerts Substance Criticality Severity Reaction Reaction Severity Status Coreg unknown Active Medications amLODIPine 2.5 mg oral tablet 90 [...] 10:19:00 AM EDT, Route to Pharmacy Electronically, [id number], Partial fill upon patient request [...] Gm, 6Refills, Maintenance, 06/11/24 10:42:00 AM EST, [id number], Partial fill upon patient request [...] Refills, Maintenance, 05/02/25 3:44:00 PM EST, Tablet, [id number], Do not subsitute, 157.5, cm, [...] exposure Confirmed Active Spinal stenosis Confirmed Active Social History Social History Type Response Smoking Status Former smoker; Other : 0.5ppd x ~5-10 years. Quit 2002.; entered on: 02/23/18 Sex Sex Representation Female (finding) Patient Care team information Care Team Personnel Name: Amparo DICKINSON, Sudha Guevara Position: S RN Member Role: Primary Care Nurse Name: Aaron Rob MD Position: Reference Physician Member Role: PCP Address: [address] [place] [address] Aaron Rob MD [place], [place] [address] Telecom: [phone] Name: Stephen Summers MD Position: [facility] Renal MD Member Role: Lifetime Consulting Physician Address: [address] [place] [address] [address] [facility] [address]- Telecom: Name: Phyllis Sarkar RN Position: S RN Member Role: Primary Care Nurse Name: Martha Perez RN Position: [facility] RN Member Role: Primary Care Nurse Name: Kimberlyn Richards RN Position: [facility] RN Member Role: Primary Care Nurse Name: Dwight Rodriguez RN Position: [facility] RN Member Role: Primary Care Nurse Name: Parul Russell MD Position: [facility] Cardiology MD Member Role: Lifetime Consulting Physician Name: Ricardo Jeffrey RN Position: [facility] RN Member Role: Primary Care Nurse Care Team Related Persons Name: ALEX KRAFT Name: YOVANA KRAFT Insurance Providers Guarantor name: BERT KRAFT Health Plan Information #: 1 Payer: MEDICARE B Payer Identifier: KALINA Member Number: [id number] Group Number: [id number] Subscriber Identifier: KALINA Relationship to Subscriber: self Coverage Type: NA Coverage Verification Date: NA Telecom: NA Address:
[2025-06-25 10:46] VITALS: BP 186/90; PULSE 55; O2SAT 98; BMI 28.2
--- NOTE | 2025-06-25 10:46 | A.OFFVIS_ITS ---
Vital Signs 06/25/25 10:46 06/25/25 11:36 06/25/25 11:43 Height 5 ft 3 in Weight 159 lb 6.307 oz BMI 28.2 BP 186/90 H 160/78 H 138/70 Blood Pressure Location Lt brachial Position Sitting Pulse 55 Pulse Source Pulse Oximeter Pulse Oximetry (%) 98 Oxygen Delivery Method Room Air Intake Visit Reasons: T2DM Intake Note: Patient present today for Type 2 Diabetes Mellitus Last Diabetic eye exam: Last exam was around March 2025. Last Podiatry Visit: Doesn't have one Random Glucose: 104 mg/dl HgA1C: 5.4% Slice Cutting Machine Operator Required: No Accompanied by: Self / Same As Patient Allergies metformin Adverse Reaction (Verified 06/25/25 11:31) diarrhea HPI Comments Details: 70-year-old female with a past medical history of osteopenia, thyroid cancer, hypertension, rheumatoid arthritis and CAD presents for diabetic management. It is my 1st time seeing the patient. Reviewed hemoglobin A1c results over the past 5 years. Max A1c 5.8% 10/04/2024. Denies family history of diabetes. Patient was previously on metformin which was discontinued due to diarrhea. She was taking Januvia 50 mg, but she stopped it more than 1 month ago in April. She was in the hospital, and they stopped giving it to her because her blood sugars were good, and she did not restart after. POC today is 104. She uses a glucometer to monitor her blood sugar. She has seen the certified ict educator in the office, and she implemented lifestyle modifications. She has lost weight. She is eating a more balanced diet. She has no juice or soda. She occasionally has a glass of wine. She ex ercises as tolerated since she does have some chronic pain issues. She avoids sweets and sugary foods. Hypertension is treated with metoprolol and amlodipine. Her blood pressure was initially very elevated today at 186/90. I rechecked it and it decreased to 160/78, and at the end of the appointment it was 138/70. Patient says that this was due to anxiety when she 1st arrived. She had an eye exam in March. She is on a statin for hyperlipidemia. Patient says she does feel like she is coming down with something today because she has some head congestion. No sore throat, cough, fever, chills or myalgias. Daughter recently tested positive for influenza A. Advised patient to go to urgent care or contact primary care for evaluation. ROS: Constitutional: No unexplained weight loss, fever, chills, fatigue or night sweats. Eyes: No vision changes, blurry vision, double vision, eye pain, eye redness, eye discharge. ENT: No ear pain, sore throat. Endorses congestion. Respiratory: No shortness of breath, cough or sputum production. Cardiovascular: No chest pain Neurologic: No headache, dizziness, syncope Skin: No rash or ulcers or wounds Endocrine: No cold or heat intolerance. No polyuria or polydipsia. Physical exam: Constitutional: Alert, in no distress. Eyes: Pupils are equal, round and reactive to light. Extraocular muscles intact. Mouth/throat: No edema or exudates or erythema Neck: Supple, Full range of motion. No lymphadenopathy. No palpable masses. Respiratory: Clear to auscultation. Cardiovascular: S1 S2 regular. No murmurs. Neurologic: No focal neurological deficits. Extremities: Warm and well perfused. No clubbing, cyanosis or edema. Psychiatric: Normal mood and affect [facility] Medical History (Updated 06/25/25 @ 12:16 by HIREN Sutton) Overweight Prediabetes Rheumatoid arthritis Osteopenia Scoliosis Long-term use of immunosuppressant medication Personal history of COVID-19 Hx of thyroid cancer Non-rheumatic mitral regurgitation Essential hypertension Atherosclerotic cardiovascular disease intermediate 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 Seropositive rheumatoid arthritis Coronary arteriosclerosis Surgical History (Updated 06/25/25 @ 10:55 by CARMELO Sandhu) History of hysterectomy Hx of thyroidectomy (~2019) Hx of total knee replacement (06/22/22) Hx of bilateral cataract extraction Hx of colonoscopy History of back surgery Status post coronary artery bypass graft Family History Mother HTN (hypertension) Social History Household Members: Spouse Housing: Apartment Are you a primary infant childcare provider to a significant other at home: No Do you presently have visiting nurse or other home services: No 75 years or older and lives alone: No Alcohol intake: current Alcohol intake frequency: holidays/special occasions only Alcohol type: wine Comment: bathroom only, aware of trip hazards Patient Tobacco Use Status: Former Tobacco user Tobacco use type: Cigarette Female Reproductive History Menstrual Age of Menarche: 12 Physical Exam Vital Signs: Last Vital Signs Pulse 55 06/25/25 10:46 BP 138/70 06/25/25 11:43 Pulse Ox 98 06/25/25 10:46 Oxygen Delivery Method Room Air 06/25/25 10:46 BMI result Body Mass Index 28.2 Results AMB Hemoglobin A1c AMB Hemoglobin A1c 5.4 % Last Edit by CARMELO Sandhu on 06/25/25 11:07 Results Reviewed Results Reviewed: Laboratory Last Values Glucose (Clinic) 104 mg/dL (60-115) 06/25/25 10:58 Hgb A1c (Clinic) 5.4 % (4.0-6.0) 06/25/25 11:00 Assessment & Plan Assessment & Plan (1) Prediabetes: Code(s): R73.03 - Prediabetes Category: Medical (2) Overweight: Code(s): E66.3 - Overweight Category: Medical Plan In summary this is a 70-year-old female with a past medical history of prediabetes with max A1c 5.8% who has been successful with lifestyle modifications. Hemoglobin A1c is 5.4%. She has been off Januvia for more than a month. Congratulated the patient. Continue lifestyle modification. She wants to exercise more. Recommended monitoring A1c every 3-6 months at discretion of her primary care provider. If it increases she can follow up with endocrinology. She is not interested in GLP 1 at this time, and she has been losing weight with dietary changes. Recommended annual eye exams. Her blood pressure was initially elevated which was attributed to anxiety, it decreased to 138/70 over the course of the visit. She has a blood pressure cuff to monitor at home. She can follow up as needed with me. Orders: Orders AMB Hemoglobin A1c Today E11.9 - Type 2 diabetes mellitus without complications, Z13.9 - Encounter for screening, unspecified Coding Level of Care Code Est Pt Level 4 (60646) Add On Problem Visit Only Diagnoses Prediabetes R73.03 Overweight E66.3
[2025-06-25 11:01] LABS: Glucose, Whole Blood 104 mg/dL (60-115)
[2025-06-25 11:36] VITALS: BP 160/78
[2025-06-25 11:43] VITALS: BP 138/70
--- OUTSIDE RECORDS SUMMARY | 2025-06-25 14:26 | XMS_ITS | Clinical Summary ---
Author Organization [employer] Address [address] [place] [address] [address] [place] [address] Care Team Providers Care Payroll Accounting Manager Name Role Phone Unavailable Primary Care [...] Recently Relevant to Health Maintenance Insurance MEDICARE [facility] MEDICAID [facility] ADULT
--- OUTSIDE RECORDS SUMMARY | 2025-06-25 14:26 | XMS_ITS | Encounter Summary ---
Author Organization [employer] Address [address] [facility] [address] [place] [address] Care Team Providers Care Export Sales Assistant Name Role Phone Unavailable Primary Care Provider Unavailabl e Encounter Details Date Type Department Care Team (Late st Contact Info) Description 03/01/2023 Abstract [facility] [address] [place] [address] Sunny Martin, DMD [address] [place] [address] Social History Tobacco Use Types Packs/Day Years [...]
--- OUTSIDE RECORDS SUMMARY | 2025-06-25 14:27 | XMS_ITS | Patient Health Record ---
Author Organization [facility] Address [address] [place] [address] Care Team Providers Care Quick Sketch Artist Name Role Phone Aaron Rob MD Primary Care Provider Angelo Caceres [phone] Reason For Referral No Information Medications Medication [...] Problem Screening for malignant neoplasm of colon ([id number]) Encounter for screening for malignant neoplasm of colon (Z12.11) Active confirmed Problem Gastroesophageal reflux disease without esophagitis ([id number]) Gastroesophageal reflux disease without esophagitis (K21.9) Active confirmed Encounters Encounter Location Date Provider Diagnosis [facility] [address] [place] [address] 04/05/2025 Angelo Lan Plan Of Treatment Future Test Test Name Order Date COLONOSCOPY 05/30/2018 Next Appt Details Provider Name:Angelo Lan , 08/01/2025 10:20:00 AM, [address] [facility], [address], [place], [address], Insurance Providers Payer Name Payer Address Payer Phone Subscriber Number Group Number Insured Name Patient Relationship to Insured Coverage Start Date Coverage End Date MEDICARE OF [place] [address] [facility] [place] [address] [id number] BERT HOOD Self - patient is the insured Medical (General) History Medical History History ICD Code Denies OK,DM,CVA,Lung disease,renal dise ase HTN CAD-with 3-V CABG as below--had CHF Rheumatoid arthritis Hyperthyroidism GERD--EGD in 03/2008--small HH, no esoph agitis, no Rubio'a Screening colonoscopy in 2007--hyperplastic polyp, sigmoid diverticulosis, small internal hemorrhoids Surgical History Surgery Date(Month/Year) 3-V CABG 04/11/2018 Back surgery
--- OUTSIDE RECORDS SUMMARY | 2025-06-25 14:28 | XMS_ITS | Patient Health Record ---
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 Panel Fa st Reviewed date:10/05/2024 09:05:22 AM Interpretation: Performing Lab:[facility], [address] [place] [phone] Notes/Report: Sodium 144 135-145 mmol/L Potassium 3.9 [...] Panel Reviewed date:10/04/2024 06:22:42 PM Interpretation: Performing Lab:[address] [address] Notes/Report: Triglycerides 101 <150 mg/dL Desirable Triglyceride: [...] T4 Reviewed date:10/04/2024 06:24:59 PM Interpretation: Performing Lab:[address] [address] Notes/Report: TSH reflex Free T4 0.34 0.32-4.0 uIU/mL Microalbumin, Random Reviewed date:10/04/2024 06:28:23 PM Interpretation: Performing Lab:[address] [address] Notes/Report: Creatinine Urine 63.70 Microalbumin Urine 24.0 Microalbum/Creatinine Ratio Ur 37.6 <30 ug/mg cr Albumin/Creatinine Ratio Reference Ranges: Normal: < 30 ug/mg creatinine Microalbuminuria: 30 - 300 ug/mg creatinine Clinical Albuminuria: > 300 ug/mg creatinine Hemoglobin A1c Reviewed date:10/04/2024 06:25:17 PM Interpretation: Performing Lab:[facility], [address] [place] [phone] Notes/Report: Hemoglobin A1c % 5.8 <6.0 % [...] average glucose, using the formula of the X8D-Cvnkror Average Glucose study (ADAG), Diabetes Care, Vol.31,#8, Jan. 2007 UA ClnCatch+Micro w/rflx Cul t Reviewed date:10/05/2024 09:05:43 AM Interpretation: Performing Lab:[facility], [address] [place] [phone] Notes/Report: Urine, Clean Catch Color Urine Yellow Appearance Urine Clear PH 6.5 5.0-9.0 Glucose Urine UA Negative Negative mg/dL Urine Blood Small (1+) Negative Specific [place] - Urine 1.015 1.005-1.025 Urine Protein Negative Neg-Trace mg/dL Urine Ketones Negative Negative mg/dL Nitrite Urine Negative Negative Leukocyte Esterase Urine Trace Negative RBC Urine 11-20 0-2 /HPF WBC Urine 6-10 0-5 /HPF Squamous Epithelial Cell Urine 6-10 0-2 /HPF Bacteria Urine 3+ None Seen Hyaline Casts Urine 0-2 0-2 /LPF Liver Panel Reviewed date:04/16/2025 03:56:30 PM Interpretation: Performing Lab:[facility], [address] [place] [phone] Notes/Report: Bilirubin Total 0.4 0.0-1.0 mg/dL Bilirubin Direct 0.2 0.0-0.5 mg/dL Aspartate Amino Transferase 31 5-31 U/L Alanine Aminotransferase 12 0-31 U/L Total Protein 6.9 6.5-8.0 g/dL Albumin Level 3.8 3.5-5.0 g/dL Alkaline Phosphatase 125 39-117 U/L Glucose Fasting Reviewed date:04/16/2025 03:57:54 PM Interpretation: Performing Lab:[facility], [address] [place] [phone] Notes/Report: Glucose Fasting 118 60-99 mg/dL A fasting glucose from 100-125 mg/dl is considered impaired (pre-diabetes). Lipid Panel with Reflex Reviewed date:04/16/2025 04:02:18 PM Interpretation: Performing Lab:[facility], [address] [place] [phone] Notes/Report: Triglycerides 224 <150 mg/dL Desirable Triglyceride: [...] A1c Reviewed date:04/16/2025 12:25:34 PM Interpretation: Performing Lab:[facility], [address] [place] [phone] Notes/Report: Hemoglobin A1c % 5.6 <6.0 % [...] average glucose, using the formula of the W6L-Jwumcqd Average Glucose study (ADAG), Diabetes Care, Vol.31,#8, Jan. 2007 Glucose, finger stick Reviewed date:06/18/2025 11:28:12 AM Interpretation: Performing Lab: Notes/Report: Value 86 TSH reflex Free T4 Reviewed date:07/06/2024 05:11:26 PM Interpretation: Performing Lab:[facility], [address] [place] [phone] Notes/Report: TSH reflex Free T4 0.16 0.32-4.0 [...] 12:50:13 PM Interpretation:CBACK 07/06/24 Performing Lab: Notes/Report: [address] [address] XRay Report Signed Patient: Selene Barry MR#: [id number] 3611 : 1955 Acct:[id number] Age/Sex: 69 / F ADM Date: 06/29/24 Loc: [facility] Attending Dr: Aaron Rob MD Ordering Physician: Aaron Rob MD Date of Service: 06/29/24 Procedure(s): XR chest 2V Accession Number(s): [id number] cc: Aaron Rob MD CLINICAL HISTORY: Acute [...] in OV> 07/02/241054 DD/ 54 TD/TT: 07/02/241054 Liquor Rectifier: [address] [address] XRay Report Signed Patient: Selene Barry MR#: [id number] 3611 : 1955 Acct:[id number] Age/Sex: 69 / F ADM Date: 06/29/24 Loc: HO.RAMONAAY Attending Dr: Aaron Rob MD Ordering Physician: Aaron Rob MD Date of Service: 06/29/24 Procedure(s): XR tigist st 2V Accession Number(s): [id number] cc: Aaron Rob MD CLINICAL HISTORY: Ac [...] signed by Leon Grajeda MD in OV> 07/02/245 DD/ 54 TD/TT: 07/02/241054 Liquor Rectifier: Free T4 (Free Thyroxine) Reviewed date:07/06/2024 05:11:14 PM Interpretation: Performing Lab:[facility], [address] [place] [phone] Notes/Report: Free T4 (Free Thyroxine) 1.31 0.71-1.85 ng/dL Afshan Gold Reviewed date:07/06/2024 01:24:48 PM Interpretation: Performing Lab:[facility], [address] [place] [phone] Notes/Report: Hold Gold See Note Specimen held untested for 24 hours; Call to request Chemistry testing. Hold Gold Reviewed date:10/04/2024 06:20:14 PM Interpretation: Performing Lab:[facility], [address] [place] [phone] Notes/Report: Hold Gold See Note Specimen held untested for 24 hours; Call to request Chemistry testing. Urine Culture Reviewed date:10/05/2024 09:02:59 AM Interpretation: Performing Lab:[facility], [address] [place] [phone] Notes/Report: Urine Culture No growth. XR chest 2V Reviewed date:10/19/2024 10:26:20 AM Interpretation: Performing Lab: Notes/Report: [address] [address] XRay Report Signed Patient: Selene Barry MR#: [id number] 3611 : 1955 Acct:[id number] Age/Sex: 69 / F ADM Date: 10/17/24 Loc: [facility] Attending Dr: Aaron Rob MD Ordering Physician: Aaron Rob MD Date of Service: 10/17/24 Procedure(s): XR chest 2V Accession Number(s): [id number] cc: Aaron Rob MD CLINICAL HISTORY: MILD [...] in OV> 10/18/242154 DD/ 54 TD/TT: 10/18/242154 Liquor Rectifier: [address] [place] [address] XRay Report Signed Patient: Selene Barry MR#: [id number] 3611 : 1955 Acct:[id number] Age/Sex: 69 / F ADM Date: 10/17/24 Loc: HO.XRAY Attending Dr: Aaron Rob MD Ordering Physician: Aaron Rob MD Date of Service: 10/17/24 Procedure(s): XR tigist st 2V Accession Number(s): [id number] cc: Aaron Rob MD CLINICAL HISTORY: [place] LD INTERMITTENT ASTHMA --- Additional Notes or [...] in OV> 10/18/242154 DD/ 54 TD/TT: 10/18/242154 Liquor Rectifier: Complete Blood Count Auto Di ff Reviewed date:11/02/2024 12:26:56 PM Interpretation: Performing Lab:[facility], [address] [place] [phone] Notes/Report: White Blood Count 7.9 4.8-10.8 X10*3/uL [...] te Reviewed date:11/02/2024 05:05:39 PM Interpretation: Performing Lab:[address] [address] Notes/Report: Erythrocyte Sedimentation Rate 12 0-20 MM/HR Patients with polycythemia and many hemoglobin abnormalities may have depressed sed rates whereas patients with anemia may have elevated sed rates. Comprehensive Met. Panel Reviewed date:11/08/2024 08:01:35 AM Interpretation:BRINDA 11/06 Performing Lab:[address] [address] Notes/Report: Sodium 134 135-145 mmol/L Potassium 4.3 [...] Protein Reviewed date:11/02/2024 01:00:24 PM Interpretation: Performing Lab:[facility], [address] [place] [phone] Notes/Report: C Reactive Protein 1.94 < or = 0.50 mg/dL Glucose, Whole Blood Reviewed date:01/17/2025 12:33:33 PM Interpretation: Performing Lab:[facility], [address] [place] [phone] Notes/Report: Glucose, Whole Blood 147 60-115 mg/dL METER # : [id number] FL guidance in OR Reviewed date:01/17/2025 12:32:59 PM Interpretation: Performing Lab: Notes/Report: [address] [address] Fluoroscopy Report Signed Patient: Selene Barry MR#: [id number] 3611 : 1955 Acct:[id number] Age/Sex: 69 / F ADM Date: 01/17/25 Loc: [facility] Attending Dr: Rodney Beltran MD, PhD Ordering Physician: Rodney Beltran MD, PhD Date of Service: 01/17/25 Procedure(s): FL guidance in OR Accession Number(s): [id number] cc: Aaron Rob MD; Rodney Beltran MD, [...] in OV> 01/17/25901 DD/ 5 TD/TT: 01/17/2544 Liquor Rectifier: [address] [address] Fluoroscopy Report Signed Patient: Selene Barry MR#: [id number] 3611 : 1955 Acct:[id number] Age/Sex: 69 / F ADM Date: 01/17/25 Loc: [facility] Attending Dr: Jessica Beltran MD, PhD Ordering Physician: Rodney Beltran MD, PhD Date of Service: 01/17/25 Procedure(s): FL guidance in OR Accession Number(s): [id number] cc: Aaron Rob MD; Rodney Beltran MD, [...] by Angelo Haley MD in OV> 01/17/25 09 DD/ 5 TD/TT: 01/17/25 0844 Liquor Rectifier: Afshan Solano date:04/16/2025 12:25:44 PM Interpretation: Performing Lab:[facility], [address] [place] [phone] Notes/Report: Hold Gold See Note Specimen held untested for 24 hours; Call to request Chemistry testing. Complete Blood Count Auto Di ff Reviewed date:05/10/2025 12:15:21 PM Interpretation: Performing Lab:[facility], [address] [place] [phone] Notes/Report: White Blood Count 9.6 4.8-10.8 X10*3/uL [...] INR Reviewed date:05/10/2025 12:15:29 PM Interpretation: Performing Lab:[facility], [address] [place] [phone] Notes/Report: Prothrombin Time 12.1 11.2-13.5 SEC [employer] [...] OBSX1 Reviewed date:05/10/2025 12:38:15 PM Interpretation: Performing Lab:[facility], [address] [place] [phone] Notes/Report: OBS1 POSITIVE NEGATIVE Comprehensive Met. Panel Reviewed date:05/10/2025 12:14:52 PM Interpretation: Performing Lab:[address] [address] Notes/Report: Sodium 142 135-145 mmol/L Potassium 3.9 [...] Acid Reviewed date:05/12/2025 04:28:20 PM Interpretation: Performing Lab:[facility], [address] [place] [phone] Notes/Report: Lactic Acid 1.4 0.5-2.0 mmol/L SARS-CoV2/FLU/RSV Reviewed date:05/10/2025 12:14:32 PM Interpretation: Performing Lab:[facility], [address] [place] [phone] Notes/Report: Influenza A PCR NEGATIVE Negative Influenza [...] by authorized laboratories. Testing performed on the EndoStim GeneXpert utilizing real-time RT-PCR. All SARS CoV2 and positive influenza A/B results are reported to [facility]. Blood Culture (First) Reviewed date:05/16/2025 12:47:54 PM Interpretation: Performing Lab:[facility], [address] [place] [phone] Notes/Report: Blood Culture (First) No growth after 5 days. Blood Culture (Second) Reviewed date:05/16/2025 12:48:02 PM Interpretation: Performing Lab:[facility], [address] [place] [phone] Notes/Report: Blood Culture (Second) No growth after [address] abdomen pelvis w con Reviewed date:05/10/2025 03:13:30 PM Interpretation: Performing Lab: Notes/Report: [address] [place] [address] CT Scan Report Signed Patient: Selene Barry MR#: [id number] 3611 : 1955 Acct:[id number] Age/Sex: 70 / F ADM Date: 05/10/25 Loc: HO.ED Attending Dr: Ordering Physician: Vanita Orantes Date of Service: 05/10/25 Procedure(s): CT abdomen pelvis w IV con Accession Number(s): [id number] cc: Aaron Rob MD; Vanita Orantes Report Number: [id number]: Total DLP = 506.00 mGy-cm Reason for [...] 05/10/2025 02:21 PM [facility] Dictated By: Jorge Carr MD Signed By: <Electronically signed by Jorge Carr MD in OV> 05/10/25 1421 DD/ 1239 TD/TT: 05/10/25 1325 Liquor Rectifier: [address] [address] [address] Scan Report Signed Patient: Selene Barry MR#: [id number] 3611 : 1955 Acct:[id number] Age/Sex: 70 / F ADM Date: 05/10/25 Loc: HO.ED Attending Dr: Ordering Physician: Vanita Orantes Date of Service: 05/10/25 Procedure(s): CT abd omen pelvis w IV con Accession Number(s): [id number] cc: Aaron Rob MD; Vanita Orantes Report Number: [id number]: Total DLP = 506.00 mGy-cm Reason for [...] 05/10/25 1421 DD/ 1239 TD/TT: 05/10/25 1325 Liquor Rectifier: Complete Blood Count Auto Di ff Reviewed date:05/12/2025 04:28:46 PM Interpretation: Performing Lab:[facility], [address] [place] [phone] Notes/Report: White Blood Count 8.8 4.8-10.8 X10*3/uL [...] date:05/22/2025 04:55:35 PM Interpretation: Performing Lab: Notes/Report: [facility] [address] [place] [address] XRay Report Signed Patient: Selene Barry MR#: [id number] 3611 : 1955 Acct:[id number] Age/Sex: 70 / F ADM Date: 05/22/25 Loc: [facility] Attending Dr: Osmel MARADIAGA Ordering Physician: Osmel Mckoy Date of Service: 05/22/25 Procedure(s): XR lumbar spine 4V min Accession Number(s): [id number] cc: Aaron Rob MD; Osmel Mckoy Reason [...] 05/22/25 1621 DD/ 1543 TD/TT: 05/22/25 1547 Liquor Rectifier: [facility] [address] [address] XRay Report Signed Patient: Selene Barry MR#: [id number] 3611 : 1955 Acct:[id number] Age/Sex: 70 / F ADM Date: 05/22/25 Loc: [facility] Attending Dr: Osmel MARADIAGA Ordering Physician: Osmel Mckoy Date of Service: 05/22/25 Procedure(s): XR lum bar spine 4V min Accession Number(s): [id number] cc: Aaron Rob MD; Osmel Mckoy Reason for Exam: Z98 .890 - Other specified postprocedural states EXAMINATION: XR LUMBAR SPINE 4 OR MORE VIEWS CLINICAL INFORMATION: Z98.890 - Other specified postprocedural states COMPARISON: Radiographs on [facility] 2023. TECHNIQUE: AP and lateral views of [...] 05/22/25 1621 DD/ 1543 TD/TT: 05/22/25 1547 Liquor Rectifier: MR lumbar spine wo con Reviewed date:06/06/2025 08:58:32 AM Interpretation: Performing Lab: Notes/Report: [address] [address] Magnetic Resonance Report Signed Patient: Selene Barry MR#: [id number] 3611 : 1955 Acct:[id number] Age/Sex: 70 / F ADM Date: 06/01/25 Loc: HO.MRI Attending Dr: Osmel MARADIAGA Ordering Physician: Osmel Mckoy Date of Service: 06/01/25 Procedure(s): MR lumbar spine wo con Accession Number(s): [id number] cc: Aaron Rob MD; Osmel Mckoy Reason [...] 02/03/24 10:14 EDT Findings: There are 6 bfv-qnw-tyyeujc lumbar-type vertebra. There is moderate levocurvature with [...] right and severe left lateral recess stenosis. Poto-ty-rsuovysh right and mild left foraminal stenosis. L3/L4: [...] measuring 3 mm. Severe facet joint hypertrophy. Ccwz-no-fzygsgoz central canal stenosis. Severe bilateral lateral recess stenosis. Moderate to severe right and iwlf-zh-bdhpfmot left foraminal stenosis. L5/transitional vertebra: Status post laminectomies. Uncovering of the disc with 7 mm disc bulge. Severe facet joint hypertrophy. Moderate to severe central canal stenosis greater to the left of midline. Severe bilateral lateral recess stenosis, left greater than right. Nzoe-iq-oumonwxp right and severe left foraminal stenosis. Transitional [...] Elias MD in OV> 06/05/25 1602 DD/ 160 TD/TT: 06/05/25 160 Liquor Rectifier: [address] [address] Magnetic Resonance Report Signed Patient: Selene Barry MR#: [id number] 3611 : 1955 Acct:[id number] Age/Sex: 70 / F ADM Date: 06/01/25 Loc: HO.MRI Attending Dr: Osmel MARADIAGA Ordering Physician: Osmel Mckoy Date of Service: 06/01/25 Procedure(s): MR lum bar spine wo con Accession Number(s): [id number] cc: Aaron Rob MD; Osmel Mckoy Reason [...] 02/03/24 10:14 EDT Findings: There are 6 qnw-nkb-niurivc lumbar-type vertebra. There is moderate levocurvature with [...] and severe left late ral recess stenosis. Ohaz-ae-czivzryp right and mild left foraminal stenosis. L3/L4: [...] 3 mm. Severe facet kwame nt hypertrophy. Jqsm-hm-kuuznswx central canal stenosis. Severe bilateral lateral recess stenosis. Moderate to severe right and khvs-bi-pwudnojx left foraminal stenosis. L5/transitional vertebra: Status post laminectomies. Uncovering of the disc with 7 mm disc bulge. Severe facet joint hypertrophy. Moderate to severe central canal stenosis greater to the left of midline. Severe bilateral lateral re cess stenosis, left greater than right. Qeiu-zm-ycreiqdo rig ht and severe left foraminal stenosis. [...] OV> 06/05/25 1602 DD/ 1601 TD/TT: 06/05/25 160 Liquor Rectifier: Glucose, Whole Blood Reviewed date:06/25/2025 11:06:50 AM Interpretation: Performing Lab:[facility], [address] [place] [phone] Notes/Report: Glucose, Whole Blood 104 60-115 mg/dL METER #: [id number] Testing performed in the [facility]in[facility] , [address], [facility]. Reason For Referral Reason osteoporosis Diagnosis 1 Age-related osteopor osis without current pathological fracture (M81.0) Referral Organization Aaron Rob MD Referring Provider First Name Aaron Referring Provider Last Name Darron Referring Provider Speciality Internal edicine Referred Provider Angelo Ramires Referred Provider Specialty Endocrinolog y General Notes Ursula Tracy 0 07/26/2024 03:26:47 PM >info faxed with [facility] spine [facility] office note Referral Priority Routine Referral Appointment Date 07/30/2024 Reason DM Diagnosis 1 Type 2 diabetes santhosh itus treated without insulin (E11.9) Referral Organization Aaron Rob MD Referring Provider First Name Aaron Referring Provider Last Name Darron Referring Provider Speciality Internal M edicine Referred Provider Marjan Burch Referred Provider [...] 1 tablet Orally twice a day Active Gabapentin 300 MG 1 capsule Orally twi ce a day Active Januvia 50 MG 1 tab Orally daily 12/17/2024 Not-Taking Albuterol Sulfate (2.5 MG/3ML) 0.083% 3 ml Inhalation Three times a day 06/15/2012 Active Estradiol 0.1 MG/GM as directed Vaginal Two times a Week 10/11/2023 Active Synthroid 100 MCG 1 tablet in the morn ing on an empty stomach Orally Once a day Active Lasix 20 MG 1 tablet Orally Once a day Active Calcium + D 315-200 MG-UNIT 1 tablet Orally 500/125 once a day Active Amoxicillin-Pot Clavulanate 875-125 MG 1 tablet Orally every 12 hrs for 7 days 08/25/2023 Not-Taking Omeprazole 20 MG Take 1 capsule by [facility] once daily for 90 Active Docusate Sodium 100 MG 1 capsule as need ed Orally Once a day Not-Taking Magnesium 250 MG 1 capsule Orally Onc e a day Active Atorvastatin Calcium 80 MG Take 1 tablet by mouth once daily for 90 Active Aspir-81 81 [...] W/U Status Risk Notes Problem Hypercoagulable state (42510707) Secondary hypercoagulable state (289.82) Active confirmed Problem Spinal stenosis (92517610) Spinal stenosis (724.00) Active confirmed Problem 28717581 Age-related osteoporosis without current pathological fracture (M81.0) Active confirmed Problem 241981998 Thyroid nodule (E04.1) Active confirm ed Problem 45133836 Lymphocytosis (D72.820) Active confirmed Problem 343875671937743 skilled nursing (curre nt) use of systemic steroids (Z79.52) Active confirmed Problem 49948168 Lumbar disc dise ase (M51.9) Active confirmed Problem 46249884 Essential hypert ension (I10) Active confirmed Problem 686250597 Mild intermitten t asthma without complication (J45.20) Active confirmed Problem 954890059 Chronic systolic congestive heart failure (I50.22) Active confirmed Problem 53096344 Hyperthyroidism (E05.90) Active confirmed Problem 219690204 Rheumatoid arthr itis involving multiple sites, 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) Active confirmed Problem 127268471 Graves disease (E05.00) Active confirmed Problem 462343313 History of coron marie artery bypass graft (Z95.1) Active confirmed Problem 0559874 Thyromegaly (E04.9) Active confirmed Problem 931292670 Non-rheumatic mi tral regurgitation (I34.0) Active confirmed Problem 808337740 Thyroid cancer (C73) Active confirmed Problem 358239629 Vaginal bleeding (N93.9) Active confirmed Problem 35885924 Sciatica of righ t side (M54.31) Active confirmed Problem 41243835 Hypercholesterol emia (E78.00) Active confirmed Problem 4609747402157 Coronary artery disease of [place] artery of [place] heart with stable angina pectoris (I25.118) Active confirmed Problem 017103950 Atrophy of vagin a (N95.2) Active confirmed Problem History of hysterectomy (006226337) History of hysterectomy (Z90.710) Active confirmed Problem 943092680 Vaginal prolapse (N81.10) Active confirmed Problem Type II diabetes mellitus without complication (314158771) Type 2 diabetes mellitus treated without insulin (E11.9) Active confirmed Problem 9834788 Prediabetes (R73.09) Inactive confirmed Vital Signs Blood pressure diastolic 74 mm Hg 06/18/2025 doroteo ght is down 2 pounds since 05-21-25 Height 63.5 in 06/18/2025 weight is down 2 pounds since 05-21-25 Blood pressure systolic 152 mm Hg 06/18/2025 doroteog ht is down 2 pounds since 05-21-25 Weight 161 lbs 06/18/2025 weight is down 2 pounds since 05-21-25 BMI 28.07 kg/m2 06/18/2025 weight is down 2 pounds since 05-21-25 Encounters Encounter Location Date Provider Diagnosis Aaron Rob MD [address] [place] [id number] 10/04/2024 Aaron Rob Essential hypertensi on I10 ; Prediabetes R73.09 ; Lymphocytosis D72.820 ; Chronic systolic congestive heart failure I50.22 ; Hyperthyroidism E05.90 and Hypercholesterolemia E78.00 Aaron Rob MD [address] [id number] 04/16/2025 Aaron Rob Type 2 diabetes santhosh itus treated without insulin E11.9 ; Encounter for administration of vaccine Z23 and Hypercholesterolemia E78.00 Aaron Rob MD [address] [place] [id number] 06/18/2025 Aaron Rob Type 2 diabetes santhosh itus treated without insulin E11.9 and Lumbar disc disease M51.9 Aaron Rob MD [address] [id number] 06/29/2024 Aaron Rob Acute URI J06.9 Aaron Rob MD [address] [place] [id number] 07/06/2024 Aaron Rob Mild intermittent as thma without complication J45.20 ; Hyperthyroidism E05.90 and Pneumonitis, interstitial J84.89 Aaron Rob MD [address] [place] [id number] 10/11/2024 Aaron Rob Atrophy of vagina N9 5.2 ; Vaginal prolapse N81.10 ; Hematuria R31.9 ; Essential hypertension I10 ; Prediabetes R73.09 ; Mild intermittent asthma without complication J45.20 ; Chronic systolic congestive heart failure I50.22 ; Graves disease E05.00 and Hypercholesterolemia E78.00 Aaron Rob MD [address] [place] [id number] 11/06/2024 Aaron Rob Essential hypertensi on I10 ; Rheumatoid arthritis involving multiple sites, unspecified rheumatoid factor presence M06.9 and Type 2 diabetes mellitus treated without insulin E11.9 Aaron Rob MD [address] [place] [id number] 11/13/2024 Aaron Rob Type 2 diabetes santhosh itus treated without insulin E11.9 Aaron Rob MD [address] [place] [id number] 11/29/2024 Aaron Rob Type 2 diabetes santhosh itus treated without insulin E11.9 and Headache, unspecified R51.9 Aaron Rob MD [address] [place] [id number] 12/14/2024 Aaron Rob Type 2 diabetes santhosh itus treated without insulin E11.9 and Rectal bleeding K62.5 Aaron Rob MD [address] [place] [address] [id number] 01/14/2025 Aaron Rob Type 2 diabetes santhosh itus treated without insulin E11.9 ; Lumbar disc disease M51.9 and Essential hypertension I10 Aaron Rob MD [address] [place] [address] [id number] 01/25/2025 Aaron Rob Type 2 diabetes santhosh itus treated without insulin E11.9 and Lumbar disc disease M51.9 Aaron Rob MD [address] [place] [address] [id number] 04/23/2025 Aaron Rob History of hysterect ravinder Z90.710 ; Vaginal bleeding N93.9 ; Essential hypertension I10 and 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 Aaron Rob MD [address] [place] [address] [id number] 05/21/2025 Aaron Rob Type 2 diabetes santhosh itus treated without insulin E11.9 and Lumbar disc disease M51.9 Aaron Rob MD [address] [place] [address] [id number] 11/29/2024 Aaron Rob MD [address] [place] [address] [id number] 12/03/2024 Aaron Rob MD [address] [place] [address] [id number] 12/03/2024 Aaron Rob MD [address] [place] [address] [id number] 12/04/2024 Aaron Rob MD [address] [place] [address] [id number] 12/14/2024 Aaron Rob MD [address] [place] [address] [id number] 12/17/2024 Aaron Rob MD [address] [place] [address] [id number] 01/17/2025 Aaron Rob MD [address] [place] [address] [id number] 05/12/2025 Aaron Rob Assessments Encounter Date Diagnosis (ICD Code) Assessment Notes Treatment Notes Treatment Clinical Notes Section Notes 10/04/2024 Essential hypertensi on (ICD-10 - I10) 04/16/2025 Type 2 diabetes mellitus treated without insulin (ICD-10 - E11.9) 04/16/2025 Encounter for administration of vaccine (ICD-10 - Z23) 06/18/2025 Type 2 diabetes mellitus treated without insulin (ICD-10 - E11.9) stopped her januvia and sugars are doing welll. had been feeling sick on the janiuvia maybe because her sugars are getting too low. says she is not eating a lot of bad foods oike she used to 06/29/2024 Acute URI (ICD-10 - J06.9) THE XRAY ORDER WAS FAXED TO [facility] PATIENT REG. 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 07/06/2024 Pneumonitis, interstitial (ICD-10 - J84.89) will [...] Provider Name:Aaron Atkinson ier, 10/08/2025 07:45:00 AM, [address] [place] [address], [address], [phone], Provider Name:Aaron Atkinson ier, 10/15/2025 09:30:00 AM, [address] [place] [address], [facility], [place], [place], [id number], Insurance Providers Payer Name Payer Address Payer Phone Subscriber Number Group Number Insured Name Patient Relationship to Insured Coverage Start Date Coverage End Date [employer] [address] [place] [address] [id number] Selene Valdovinos Self - patient is the insured Medical (General) History Medical History History ICD Code colonoscopy - 03/2008 hyperp lastic polyp due 03/[address] Mcgarry; Colonoscopy done 07/14/[address] 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
== END 2025-06-25 11:51 | disposition home or self-care (01) ==
LOC: HO.ENCR 10:45
PROVIDERS: PCP Internal Medicine; Visit Provider Physician Assistant Medical
DX: Z13.9 Encounter for screening, unspecified (principal); E11.9 Type 2 diabetes mellitus without complications; R73.03 Prediabetes; E66.3 Overweight

== ENCOUNTER → 2025-06-25 10:45 | Outpatient (BNVA) | payer MEDICARE, SELFPAY | PROVIDERS: PCP Internal Medicine; Visit Provider Physician Assistant Medical | DX: R73.03 Prediabetes (principal); E66.3 Overweight; Z68.28 Body mass index [BMI] 28.0-28.9, adult | CPT/HCPCS: 82947; 83036; 99212 ==